=== PATIENT | male | born 1935 | race Caucasian/White ===

== ENCOUNTER 2022-11-15 13:54 | Outpatient (OUT) | payer MEDICARE, SELFPAY ==
--- NOTE | 2022-11-15 15:41 | CA_ITS ---
Patient Name Site Name ANNELISE GARCIA [facility] No Medical Record Number Age Sex Date Time [id number] [facility]:[id number] M 11/15/2022 14:02 At the Request Of ELIJAH PULIDO ECHOCARDIOGRAM REPORT PROCEDURE: CA ECHO DOPPLER COMPLETE INDICATIONS: Mitral and Aortic valve insufficiency COMPARISON: None. DESCRIPTION: COMPLETE ECHOCARDIOGRAM Real-time transthoracic echocardiography with 2D, M-mode, spectral and color flow Doppler performed. QUALITY: Technical quality was good. LEFT VENTRICLE: Normal chamber size. Normal left ventricular wall thickness. Global left ventricular systolic function is mildly decreased. LV EF: Visual estimation of left ventricular ejection fraction is 40-45%. DIASTOLIC: Diastolic function is indeterminate. ATRIAL SEPTUM: LEFT ATRIUM: Mild dilatation. RIGHT ATRIUM: Mild dilatation. RIGHT VENTRICLE: Moderate dilatation. Mildly decreased right ventricular systolic function. TRICUSPID VALVE: Normal mobility and thickness. No stenosis with trivial regurgitation. Unable to assess right-sided pressures due to lack of measurable tricuspid regurgitation. MITRAL VALVE: Normal mobility and thickness. No evidence of mitral valve stenosis. There is no mitral annular calcification. Mild mitral regurgitation. AORTIC VALVE: Normal trileaflet appearance. Mildly calcified aortic valve. Mildly diminished mobility. Doppler velocity suggest mild aortic valve stenosis. Mild to moderate aortic regurgitation. AORTIC ROOT: Normal diameter and appearance. PULMONIC VALVE: Normal thickness and mobility. No stenosis. No regurgitation. PERICARDIUM: No evidence of pericardial effusion. IVC: Collapses with inspirations. Normal size. PLEURA: CONCLUSION: 1. Left ventricular systolic function is mildly reduced. LVEF is 40 to 45%. 2. The right ventricle is moderately dilated with mildly reduced systolic function. 3. Mild mitral regurgitation. 4. Mild aortic valve stenosis with mild to moderate regurgitation. 5. Unable to assess right-sided pressures due to lack of measurable tricuspid regurgitation. 6. No pericardial effusion. Adult Echocardiography Procedure Report Left Ventricle LVEDD (3.7 - 5.6 cm): 4.75 cm LVESD (2.2 - 4.0 cm): 3.28 cm LVIVS thickness (0.6 - 1.2 cm): 0.91 cm LVPW thickness (0.5 - 1.0 cm): 1.03 cm e': 0.10 m/s E - e': 5.42 LVOT Max Gradient: 2.58 mm[Hg] LVOT Area (cm2): 0.80 m/s Peak Velocity (LVOT): 0.80 m/s Mean Velocity (LVOT): 0.53 m/s LVOT Diameter 1.78 cm Left Ventricular Ejection Fraction: 44.44 % Left Atrium LA Volume Index (2D A2C): 33.99 ml/m2 Left Atrium Systolic Dimension: 4.15 cm Mitral Valve MV E to A Ratio: 0.76 Mitral Valve A-Wave Peak Velocity: 0.70 m/s Mitral Valve E-Wave Peak Velocity: 0.54 m/s Right Ventricle RV Internal Diastolic Dimension: 4.62 cm Aorta AO Root Diam: 2.79 cm Ascending Ao Diam: 3.02 cm Aortic Valve AoV Area (Peak Pietro): 1.17 cm2, 1.23 cm2 AoV Area (VTI): 1.24 cm2, 1.29 cm2 Deceleration Barry: 1.98 m/s2, 2.07 m/s2 Pressure Half-Time: 539.10 ms, 556.55 ms Peak Velocity(Antegrade Flow): 1.62 m/s, 1.81 m/s Peak Gradient(Antegrade Flow): 10.55 mm[Hg], 13.04 mm[Hg] Mean Velocity(Antegrade Flow): 1.07 m/s, 1.24 m/s Mean Gradient(Antegrade Flow): 5.47 mm[Hg], 6.90 mm[Hg] Velocity Time Integral: 39.19 cm, 42.19 cm Tricuspid Valve Peak Velocity (Regurgitant Flow): 1.44 m/s, 1.47 m/s, 1.50 m/s Pulmonic Valve Mean Gradient: 4.69 mm[Hg] Mean Velocity: 1.02 m/s Peak Velocity: 1.53 m/s Peak Gradient: 9.38 mm[Hg] Right Atrium Right Atrium Systolic Pressure: 66.45 ml, 66.45 ml Dictated by: Addy Sierra M.D. on 11/15/2022 at 19:47 Approved by: Addy Sierra M.D. on 11/15/2022 at 19:53
== END 2022-11-15 13:55 | disposition home or self-care (01) ==
LOC: CARD 13:55
PROVIDERS: PCP Internal Medicine; Visit Provider Nurse Practitioner
DX: I08.0 Rheumatic disorders of both mitral and aortic valves (principal)
CPT/HCPCS: 93306

== ENCOUNTER 2022-12-26 08:31 | Outpatient (OUT) | payer MEDICARE, SELFPAY ==
--- NOTE | 2022-12-26 | PCN_ITS ---
CARDIAC STRESS TEST Requesting Physician:? Nathaniel Reyes NP Procedure Date:? 12/26/2022 INDICATION:? Ischemic cardiomyopathy. PERFORMING PROVIDER:? Irasema Harvey M.D. STRESS TEST TYPE:? Treadmill nuclear myocardial perfusion scan. Resting EKG:? Sinus bradycardia, right bundle branch block. Protocol:? Johnathan protocol. Resting heart rate:? 44 Peak heart rate:? 127 Peak maximal heart rate percentage:? 94% Blood pressure, resting:? 148/70 Blood pressure, peak:? 164/72 Exercise time:? 3 minutes 7 seconds Stage reached:? 1 Max METS:? 4.6 Reason for termination:? Fatigue, target heart rate achieved. Heart rate recovery:? Normal. Chronotropic response index:? Normal. Functional capacity:? Poor. Blood pressure response:? Normal. ST changes:? No definitive ST changes meeting direct criteria for ischemia noted. Roper treadmill score:? 3 Symptoms:? None. Arrhythmias:? Multifocal PVCs, PVCs in couplets. CONCLUSIONS: 1.? Baseline EKG is abnormal.? Patient has sinus bradycardia with right bundle branch block. 2.? No definitive EKG changes meeting the criteria for ischemia are noted with exercise. 3.? Functional capacity is poor.? Patient completed 3 minutes 7 seconds on treadmill.? Stage 1 reached.? METS 4.6. 4.? Patient had multifocal PVCs, PVCs in couplets at exercise and into recovery.? Clinical correlation recommended. 5.? Nuclear myocardial perfusion imaging will be performed and interpreted in a separate report.? Please refer to that report for additional information. [facility]
--- NOTE | 2022-12-26 07:45 | NM_ITS ---
Patient: ANNELISE GARCIA Exam Date: 12/26/2022 : 1935 Gender:M Ordering : ELIJAH PULIDO Admission #: [id number] Family : DR YARELIS LALA D.O. Order #: [id number] CLICK HERE TO VIEW EXAM RADIOLOGY REPORT PROCEDURE: NM SOSA PERF SPECT REST STR COMPARISON: None. INDICATIONS: ISCHEMIC CARDIOMYOPATHY TECHNIQUE: Exam Description: Stress/Rest one day protocol gated SPECT Rest Imagin.6 mCi Tc-99m Cardiolite IV on 12/26/2022 Stress Imaging 30.5 mCi Tc-99m Cardiolite IV on 12/26/2022 Exercise Protocol: Johnathan Heart Rate (bpm): Rest: 44 Max: 127 PMHR: 94 Blood Pressure: Rest: 148/70 Max: 164/72 Exercise Time: Minutes: 3 Seconds: 07 Stage Reached: Stage: 2 Mets 4.6 Symptoms: Rest and peak stress ECG findings were pending and the exercise portion of the study was pending per attending physician Dr. DELEON . For more details please see separate cardiac stress test report. FINDINGS: QUALITY OF STUDY: Excellent. PERFUSION DEFECT: None. LOCATION: N/A SIZE: N/A. SEVERITY: N/A. TYPE: N/A. WALL MOTION: Normal. LV SIZE: Normal. 118 mL. TID / TCD: None; 1.0 LVEF: Abnormal. Calculated EF 46%. SUMMARY: Myocardial perfusion imaging study has ABNORMAL findings. CONCLUSION: 1. No acute or reversible ischemia. 2. Diaphragm attenuation artifact versus decreased perfusion of the inferior wall; stable between stress and rest imaging. Diaphragm attenuation artifact is favored. 3. Mild hypokinesis of inferior wall. 4. Left ventricle volume is within normal limits, but is approaching upper limits of normal. 5. Low ejection fraction, 46%. Dictated by: Joaquim Sears M.D. on 12/27/2022 at 14:04 Approved by: Joaquim Sears M.D. on 12/27/2022 at 14:09
== END 2022-12-26 08:32 | disposition home or self-care (01) ==
LOC: NM 08:31
PROVIDERS: PCP Internal Medicine; Visit Provider Nurse Practitioner
DX: I25.5 Ischemic cardiomyopathy (principal)
CPT/HCPCS: 78452; 93017; A9500

== ENCOUNTER 2023-01-28 11:48 | Outpatient (OUT) | payer MEDICARE, SELFPAY ==
--- NOTE | 2023-01-28 | XR_ITS ---
[address] [address] Patient Name: ANNELISE GARCIA MRN: [id number] date: 1935 Sex: M Assigned Patient Location: LAB Current Patient Location: LAB Accession/Order Number: [id number] Exam Date: 01/28/2023 11:45 Report Date: 01/28/2023 13:38 At the request of: YARELIS LALA Procedure: XR knee RT 4V EXAM: XR knee RT 4V HISTORY: Pain In Right Knee M25.561 COMPARISON: None. TECHNIQUE: 4 views FINDINGS: No acute fracture or dislocation. Mild degenerative changes of the knee with meniscal calcification. Mild soft tissue swelling. XR/XR knee RT 4V IMPRESSION: Mild degenerative changes as above. Electronically authenticated by: PEPE STEWART Date: 01/28/2023 13:38
== END 2023-01-28 11:49 | disposition home or self-care (01) ==
LOC: LAB 11:48
PROVIDERS: PCP Internal Medicine; Visit Provider Internal Medicine
DX: I25.10 Atherosclerotic heart disease of native coronary artery without angina pectoris (principal); E78.01 Familial hypercholesterolemia; Z79.899 Other long term (current) drug therapy; M25.561 Pain in right knee
CPT/HCPCS: 73564

== ENCOUNTER 2023-01-29 08:52 | Outpatient (OUT) | payer MEDICARE, SELFPAY ==
[2023-01-29 09:34] LABS: Basophils Percent Auto 0.8 % (0.2-2.0); Eosinophils Absolute Auto 0.2 10^3/uL (0.0-0.7); Hematocrit 43.3 % (42.0-54.0); Hemoglobin 14.4 g/dL (14.0-18.0); Lymphocytes Absolute Auto 1.1 10^3/uL (1.2-3.8); Lymphocytes Percent Auto 21.9 % (20.5-60.0); Mean Corpuscular HGB Conc 33.3 g/dL (29.9-35.2); Mean Corpuscular Hemoglobin 34.3 pg (25.9-34.0); Mean Corpuscular Volume 103.1 fL (80.0-94.0); Mean Platelet Volume 9.3 fL (9.5-13.5); Monocytes Absolute Auto 0.7 10^3/uL (0.3-0.8); Monocytes Percent Auto 14.7 % (1.7-12.0); Neutrophils Absolute Auto 2.8 10^3/uL (1.4-6.5); Neutrophils Percent Auto 57.6 % (43.0-75.0); Platelet Count 162 10^3/uL (150-450); Red Cell Distribution Width 12.7 % (11.0-15.0); White Blood Count 4.8 10^3/uL (4.0-11.0)
[2023-01-29 11:01] LABS: Alanine Aminotransferase 21 U/L (16-63); Anion Gap 12.6; BUN Creatinine Ratio 16.7; Calcium 9.4 mg/dL (8.5-10.1); Carbon Dioxide 28.7 mmol/L (21.0-32.0); Chloride 104 mmol/L (98-107); Chol HDL Ratio 2.4; Cholesterol 131 mg/dL (<=200); Estimated GFR (African America >60 (>=60); Estimated GFR (Non-African Ame 57 (>=60); Glucose 91 mg/dL (74-106); HDL Cholesterol 54 mg/dL (40-60); Potassium 4.3 mmol/L (3.5-5.1); Sodium 141 mmol/L (136-145); Triglycerides 75 mg/dL (<=150)
== END 2023-01-29 08:53 | disposition home or self-care (01) ==
LOC: LAB 08:53
PROVIDERS: PCP Internal Medicine; Visit Provider Internal Medicine
DX: I25.10 Atherosclerotic heart disease of native coronary artery without angina pectoris (principal); E78.01 Familial hypercholesterolemia; Z79.899 Other long term (current) drug therapy
CPT/HCPCS: 36415; 80048; 80061; 84460; 85025

== ENCOUNTER 2023-05-25 08:27 | Outpatient (OUT) | payer MEDICARE, SELFPAY ==
--- NOTE | 2023-05-25 | CT_ITS ---
[address] [address] Patient Name: ANNELISE GARCIA MRN: [id number] date: 1935 Sex: M Assigned Patient Location: CT Current Patient Location: CT Accession/Order Number: [id number] Exam Date: 05/25/2023 08:50 Report Date: 05/25/2023 11:10 At the request of: YARELIS LALA Procedure: CT head/brain wo con CT head without contrast, 05/25/2023. HISTORY: Memory loss. Mild cognitive impairment. COMPARISON: CT head without contrast, 06/11/2022. TECHNIQUE: Noncontrast axial CT images were obtained through the head. Reconstructions were obtained in the sagittal and coronal planes. Dose reduction techniques were achieved by using automated exposure control and/or adjustment of mA and/or kV according to patient size and/or use of iterative reconstruction technique. FINDINGS: Paranasal sinuses are clear. Mastoid air cells clear. Skull base intact. No skull lesion. Prior cataract surgery. Extracranial soft tissue structures are unremarkable. Moderate generalized brain atrophy stable. 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 This is stable. Chronic microvascular ischemic changes in the cerebral white matter most prominent in the right parietal and occipital lobe region stable from the prior. No subdural fluid collections. No shift of midline. No mass effect. No acute hemorrhage. No masses. CT/CT head/brain wo con IMPRESSION: 1. Stable CT of the head. No acute findings. 2. Moderate generalized brain atrophy stable. No hydrocephalus. 3. Chronic microvascular ischemic changes stable. Electronically authenticated by: SHITAL BURTON Date: 05/25/2023 11:10
== END 2023-05-25 08:28 | disposition home or self-care (01) ==
LOC: CT 08:28
PROVIDERS: PCP Internal Medicine; Visit Provider Internal Medicine
DX: G31.84 Mild cognitive impairment of uncertain or unknown etiology (principal)
CPT/HCPCS: 70450

== ENCOUNTER 2023-05-28 09:14 | Outpatient (OUT) | payer MEDICARE, SELFPAY ==
--- OUTSIDE RECORDS SUMMARY | 2023-05-28 09:19 | XMS_ITS | CCD ---
Author Name Unknown Address [address] [place] [address] Organization [facility] Care Team Providers [facility] Shift Lead Name Role Phone MIGUEL GUEVARA Primary Care Physician KAILASH BARNES Consulting Unavailable GEOVANY RHODES Admitting Unavailable GEOVANY RHODES Attending Unavailable DAI, DR SANTOYO Primary Care Unavailable EDUARDO SINGLETON Consulting Unavailable JENARO PAGE Consulting Unavailable DAI, DR SANTOYO Attending Unavailable DAI, DR SANTOYO Admitting Unavailable DAI, DR SANTOYO Primary Care Unavailable DAI, DR SANTOYO Consulting Unavailable DAI, DR SANTOYO Consulting Unavailable DAI, DR SANTOYO Attending Unavailable BALL, DR SANTOYO Admitting Unavailable BALL, DR SANTOYO Primary Care Unavailable DAI, DR SANTOYO Primary Care Unavailable HAY ., DR ALVAREZ Admitting Unavailable HAY ., DR ALVAREZ Consulting Unavailable HAY ., DR ALVAREZ Attending Unavailable CALABRESE, ALYCIA Consulting Unavailable Conner IRENE Attending Unavailable PRINCESS, Conner Simpson Attending Unavailable Miguel Guevara Unavailable CAMACHO SINGER Attending Unavailable ELIJAH REYES Attending Unavailable ELIJAH REYES Attending Unavailable CAMACHO SINGER Referring Unavailable Allergies Allergy Classification Reported Allergen(s) Allergy Type Date of Onset Reaction(s) Facility (15 sources) Naproxen; Translations: [naproxen] Drug Allergy 4 Unknown (qualifier value) [facility] (1 source) Naproxen Drug Allergy 7 [facility] (6 sources) patient allergy list reviewed by nurse or physicia Propensity to adverse reactions 9 Comment:Done FaceTags Other Medications Current Medications Medication Drug Class(es) Dates Sig (Normalized) Sig (Original) apixaban 5 mg oral tablet (2 sources) Factor Xa Inhibitor Start: 05-12-2020 take 1 mg by mouth twice daily Eliquis 5 mg oral tablet mg tab(s), Oral, BID, Refills(s) 0 Start Date: 05/12/20 Status: Ordered aspirin 81 mg delayed release oral tablet (12 sources) Platelet Aggregation Inhibitor, Nonsteroidal Anti-inflammatory Drug take 1 tablet by mouth every twenty-four hours Aspirin 81 81 MG 1 tablet Orally Once a day Active take 1 tablet by mouth once nika y Aspirin 81 81 MG 1 tablet Orally Once a day Active atorvastatin 40 mg oral tablet (14 sources) HMG-CoA Reductase Inhibitor Start: 05-12-2020 take 1 mg by mouth once daily atorvastatin 40 mg Tab mg tab(s), Oral, Daily, Refills(s) 0 Start Date: 05/12/20 Status: Ordered Zyrtec (14 sources) Histamine-1 Receptor Antagonist Start: 05-13-2020 Zyrtec Daily, Refills(s) 0 Start Date: 05/13/20 Status: Ordered take 1 capsule by [facility] every twenty-four hours ZyrTEC Allergy 10 MG 1 capsule Orally Once a day Active furosemide 40 mg oral tablet (14 sources) Loop Diuretic Start: 05-12-2020 take 1 mg by mouth once daily furosemide 40 mg Tab mg tab(s), Oral, Daily, Refills(s) 0 Start Date: 05/12/20 Status: Ordered lisinopril 10 mg oral tablet (14 sources) Angiotensin Converting Enzyme Inhibitor Start: 06-09-2022 take 1 tablet by mouth every twenty-four hours Lisinopril 10 MG 1 tablet Orally Once a day Jun, Active Start: 05-12-2020 take 1 mg by mouth once daily lisinopril 5 mg Tab mg tab(s), Oral, Daily, Refills(s) 0 Start Date: 05/12/20 Status: Ordered Ernie Red (2 sources) Start: 05-31-2020 Ernie Red Ernie Red, Oral, Daily Start Date: 05/31/20 Status: Ordered 24 hr mirabegron 25 mg extended release oral tablet (1 source) beta3-Adrenergic Agonist Start: 08-17-2022 take 1 tablet by mouth once daily Myrbetriq 25 mg oral tablet, extended release 25 mg = 1 tab(s), Oral, Daily, # 30 tab(s), Refills(s) 11, [facility]: [id number], 170, cm, 08/17/22 8:49:00 EDT, Height/Length Dosing, 66, kg, 08/17/22 8:49:00 EDT, Weight Dosing Start Date: 08/17/22 Status: Ordered nitroglycerin 0.4 mg sublingual tablet (9 sources) Nitrate Vasodilator Start: 01-02-2023 Nitrostat 0.4 MG as directed Sublingual PRN chest pain Dec, Active Start: 05-13-2020 nitroglycerin Refills(s) 0 Start Date: 05/13/20 Status: Ordered omeprazole 40 mg delayed release oral capsule (13 sources) Proton Pump Inhibitor Start: 05-12-2020 take 1 mg by mouth once daily omeprazole 40 mg Cap-DR mg cap(s), Oral, Daily, Refills(s) 0 Start Date: 05/12/20 Status: Ordered omeprazole 40 mg Cap-DR (1 source) Start: 05-12-2020 take 1 mg by mouth once daily omeprazole 40 mg Cap-DR mg cap(s), Oral, Daily, Refills(s) 0 Start Date: 05/12/20 Status: Ordered Zicam Sinus Relief (2 sources) Start: 05-13-2020 Zicam Sinus Relief BID, Refill(s) 0 Start Date: 05/13/20 Status: Ordered tamsulosin hydrochloride 0.4 mg oral capsule (12 sources) alpha-Adrenergic Sissy take 1 capsule by mouth every twenty-four hours Tamsulosin HCl 0.4 MG 1 capsule Orally Once a day Active traMADol hydrochloride 50 mg oral tablet (14 sources) Opioid Agonist Start: 12-26-2022 take 1 tablet by mouth every eight hours as needed for pain traMADol HCl 50 MG 1 tablet Orally every 8 hours PRN severe pain Dec, Active Start: 05-12-2020 take 1 tablet by snow th every four hours as needed for pain tramadol 50 mg oral tablet 50 mg = 1 tab(s), Oral, q4hr, PRN for pain, # 60 tab(s), Refills(s) 0 Start Date: 05/12/20 Status: Ordered take 1 tablet by snow th every twenty-four hours traMADol HCl 50 MG 1 tablet as needed Orally Once a day Active Problems Active Problems Problem Classification Problem Date Documented Da te Episodic/Chronic Abdominal pain (3 sources) Lower abdominal pain, unspecified; Translations: [LOWER ABDOMINAL PAIN UNSPECIFIED] Onset: 3 Episodic Cardiac dysrhythmias (20 sources) Typical atrial flutter; Translations: [Typical atrial flutter] 05-12-2020 Chronic Chronic kidney disease (4 sources) Chronic kidney disease stage 3A ; Translations: [Stage 3a chronic kidney disease] Chronic Congestive heart failure; nonhypertensive (4 sources) Heart failure, unspecified; Translations: [Chronic systolic heart failure] Onset: 3 Chronic Coronary atherosclerosis and other heart disease (20 sources) Coronary arteriosclerosis; Translations: [Atherosclerotic heart disease of [place] coronary artery without angina pectoris] Onset: 2 05-12-2020 Chronic Disorders of lipid metabolism (20 sources) Familial hypercholesterolemia; Translations: [Pure hypercholesterolemia, unspecified] Onset: 0 05-12-2020 Chronic E Codes: Fall (1 source) Fall on same level from slipping, tripping and stumbling without subsequent striking against object, initial encounter; Translations: [FALL SAME LVL SLIP NO STRK OBJ INIT] Onset: 3 Episodic Esophageal disorders (20 sources) Gastro-esophageal reflux disease with esophagitis; Translations: [Gastro-esophageal reflux disease without esophagitis] Onset: 3 05-12-2020 Chronic Esophageal disorders (6 sources) Other esophagitis; Translations: [Esophagitis] Episodic Essential hypertension (20 sources) Essential hypertension; Translations: [Essential (primary) hypertension] 05-12-2020 Chronic Gastroduodenal ulcer (except hemorrhage) (12 sources) Duodenal ulcer without hemorrhage, without perforation AND without obstruction; Translations: [Duodenal ulcer, unspecified as acute or chronic, without hemorrhage or perforation and without obstruction] Chronic Gastroduodenal ulcer (except hemorrhage) (2 sources) H/O: duodenal ulcer 05-12-2020 Episodic Genitourinary symptoms and ill-defined conditions (3 sources) Urge incontinence of urine; Translations: [Urge incontinence] Onset: 3 05-13-2020 Chronic Genitourinary symptoms and ill-defined conditions (19 sources) Nocturia; Translations: [Nocturia] Onset: 2 Episodic Heart valve disorders (2 sources) Rheumatic disorders of both mitral and aortic valves; Translations: [Rheumatic disorders of both mitral and aortic valves] Onset: 3 Chronic Hyperplasia of prostate (20 sources) Benign prostatic hypertrophy with outflow obstruction; Translations: [Benign prostatic hyperplasia with lower urinary tract symptoms] Onset: 0 Chronic Hypertension with complications and secondary hypertension (1 source) Hypertensive heart disease with heart failure; Translations: [HTN HEART DISEASE W/HEART FAIL] Onset: 3 Chronic Inflammatory conditions of male genital organs (2 sources) 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 Chronic Malaise and fatigue (7 sources) Other malaise and fatigue; Translations: [Malaise and fatigue] Onset: 4 Episodic Noninfectious gastroenteritis (1 source) Noninfective gastroenteritis and colitis, unspecified; Translations: [NONINFECTIVE GE AND COLITIS UNS] Onset: 3 Episodic Osteoarthritis (20 sources) Osteoarthritis of hip; Translations: [Osteoarthritis of knee] 05-12-2020 Chronic Other aftercare (19 sources) Long-term current use of anticoagulant; Translations: [[facility] (current) use of anticoagulants] 05-12-2020 Episodic Other aftercare (1 source) [facility] (current) use of aspirin; Translations: [GROUP HOME CURRENT USE OF ASPIRIN] Onset: 3 Episodic Other aftercare (3 sources) Other mcfp (current) drug therapy; Translations: [OTH TITLE ATTORNEY CURRENT DRUG THERAPY] Onset: 3 Episodic Other aftercare (11 sources) H/O: high risk medication; Translations: [Other termite renewal inspector (current) drug therapy] Episodic Other aftercare (11 sources) High risk drug monitoring status; Translations: [supervisor intermediates (current) use of opiate analgesic] Episodic Other aftercare (2 sources) supervisor intermediates (current) use of opiate analgesic; Translations: [[facility] (current) use of opiate analgesic] Episodic Other aftercare (1 source) [facility] (current) use of anticoagulants; Translations: [supervisor intermediates (current) use of anticoagulants] Episodic Other aftercare (5 sources) Long-term current use of drug therapy; Translations: [Other mcfp (current) drug therapy] Episodic Other circulatory disease (17 sources) H/O: cardiovascular disease; Translations: [Personal history of other diseases of the circulatory system] Episodic Other circulatory disease (3 sources) Personal history of other diseases of the circulatory system; Translations: [H/O atrial flutter] Episodic Other connective tissue disease (16 sources) Enthesopathy of knee; Translations: [Other bursitis of knee, unspecified knee] Episodic Other connective tissue disease (16 sources) Disorder of soft tissue; Translations: [Other specified soft tissue disorders] Episodic Other connective tissue disease (2 sources) Other bursitis of knee, unspecified knee; Translations: [Other bursitis of knee, unspecified knee] Episodic Other connective tissue disease (2 sources) Other specified soft tissue disorders; Translations: [Other specified soft tissue disorders] Episodic Other diseases of bladder and urethra (4 sources) Male urethral stricture; Translations: [Unspecified urethral stricture, male, unspecified site] Onset: 2 Episodic Other diseases of kidney and ureters (1 source) Urinary tract obstruction; Translations: [Other obstructive and reflux uropathy] Onset: 2 Episodic Other diseases of veins and lymphatics (20 sources) Peripheral venous insufficiency; Translations: [Venous insufficiency (chronic) (peripheral)] 05-12-2020 Episodic Other diseases of veins and lymphatics (1 source) Venous insufficiency (chronic) (peripheral) Episodic Other disorders of stomach and duodenum (12 sources) Stenosis of duodenum; Translations: [Stenosis of duodenum] Chronic Other gastrointestinal disorders (12 sources) Feces contents abnormal; Translations: [Black stool] Episodic Other gastrointestinal disorders (12 sources) Heartburn; Translations: [HEARTBURN] Episodic Other gastrointestinal disorders (18 sources) Diarrhea; Translations: [Diarrhea, unspecified] Episodic Other gastrointestinal disorders (6 sources) H/O: gastrointestinal disease; Translations: [Personal history of other diseases of the digestive system] Episodic Other hematologic conditions (12 sources) Macrocytosis - no anemia; Translations: [Other specified diseases of blood and blood-forming organs] Chronic Other hematologic conditions (13 sources) Other specified diseases of blood and blood-forming organs; Translations: [Disease of blood AND/OR blood-forming organ] Onset: 9 Chronic Other hereditary and degenerative nervous system conditions (4 sources) Impaired cognition; Translations: [Mild cognitive impairment, so stated] Chronic Other hereditary and degenerative nervous system conditions (2 sources) Mild cognitive impairment, so stated Chronic Other injuries and conditions due to external causes (4 sources) Unspecified injury of head, initial encounter; Translations: [UNSPECIFIED INJURY HEAD INITIAL ENC] Onset: 3 Episodic Other injuries and conditions due to external causes (1 source) History of falling; Translations: [History of falling] Episodic Other injuries and conditions due to external causes (5 sources) History of fall; Translations: [History of falling] Episodic Other nervous system disorders (20 sources) Carpal tunnel syndrome; Translations: [Carpal tunnel syndrome, bilateral upper limbs] Chronic Other nervous system disorders (3 sources) Carpal tunnel syndrome, bilateral upper limbs; Translations: [Carpal tunnel syndrome, bilateral upper limbs] Chronic Other nervous system disorders (5 sources) Chronic pain; Translations: [Other chronic pain] Chronic Other non-traumatic joint disorders (1 source) Pain in right knee Episodic Other upper respiratory disease (6 sources) Seasonal allergic rhinitis; Translations: [Other seasonal allergic rhinitis] Chronic Screening and history of mental health and substance abuse codes (2 sources) Personal history of nicotine dependence; Translations: [Encounter for screening for depression] Onset: 3 Episodic Spondylosis; intervertebral disc disorders; other back problems (20 sources) Lumbar spondylosis; Translations: [Spondylosis without myelopathy or radiculopathy, lumbar region] 05-12-2020 Chronic Superficial injury; contusion (1 source) Abrasion of right eyelid and periocular area, initial encounter; Translations: [ABRASION RT EYELID PERIOCULAR INIT] Onset: 3 Episodic Unclassified (1 source) Special screening for malignant neoplasms, colon; Translations: [Special screening for malignant neoplasms, colon] Onset: 6 Unclassified (1 source) Long-term (current) use of other medications; Translations: [Long-term (current) use of other medications] Onset: 7 Unclassified (1 source) Hypertrophy (benign) of prostate without urinary obstruction and other lower urinary tract symptoms [LUTS]; Translations: [Hypertrophy (benign) of prostate without urinary obstruction and other lower urinary tract symptoms [LUTS]] Onset: 0 Unclassified (5 sources) Long-term current use of drug therapy; Translations: [Long-term (current) use of other medications] Onset: 7 Past or Other Problems Problem Classification Problem Date Documented Da te Episodic/Chronic Chronic kidney disease (1 source) Chronic kidney disease Esophageal disorders (15 sources) Esophageal disorders; Translations: [Gastroesophageal reflux disease with esophagitis without hemorrhage] Immunizations and screening for infectious disease (7 sources) Encounter for immunization; Translations: [Vaccination given] Onset: 05-10-2015 Episodic Other gastrointestinal disorders (4 sources) Diarrhea, unspecified; Translations: [DIARRHEA UNSPECIFIED] Onset: 02-16-2022 Episodic Results Test Name Value Interpretation Reference Range Facility Office Visiton 05-14-2023 Follow-up visit [id number] Annelise Olson 1935 M [facility] Provider Department Center 05/14/2023 CAMACHO CARTWRIGHT Family History Problem Relation Age of Onset Coronary artery disease Mother Coronary artery disease Father Family Status - Relation Status Age at Mother Father Level of Service:[id number] [place] OFFICE/OUTPATIENT ESTABLISHED LOW MDM 20 MIN Normal [facility] Office Visiton 12-19-2022 Follow-up visit [id number] Annelise Olson 1935 Date Provider Department Center 12/19/2022 ELIJAH COOPER Family History Problem Relation Age of Onset Coronary artery disease Mother Coronary artery disease Father Family Status - Relation Status Age at Mother Father Level of Service:[id number] [place] OFFICE/OUTPATIENT ESTABLISHED MOD MDM 30-39 MIN Reason for Visit and Comments: Follow-up [602924] Normal [facility] Office Visiton 10-31-2022 Follow-up visit [id number] Annelise Olson 1935 M [facility] Provider Department Center 10/31/2022 ELIJAH COOPER Family History Problem Relation Age of Onset Coronary artery disease Mother Coronary artery disease Father Family Status - Relation Status Age at Mother Father Level of Service:[id number] [place] OFFICE/OUTPATIENT ESTABLISHED MOD MDM 30-39 MIN Reason for Visit and Comments: Follow-up [056027] - Follow up no issues Normal [facility] Ambulatory Visit Summaryon 0 08-17-2022 Ambulatory Visit Summary ANNELISE OLSON :1935 Visit Date:08/17/2022 Ambulatory Visit Instructions Your Diagnosis BPH with urinary obstruction 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 Urge incontinence Tests Performed Urnls Dip Stick Auto w/o Microscopy POC [id number] Your Care Team Attending Physician - Conner IRENE MD Primary Care Physician - MIGUEL GUEVARA DO This Is Your Medications List mirabegron (Myrbetriq 25 mg oral tablet, extended release) Contact prescribing physician if questions or concerns Non-Formulary Medication (Ernie Red) apixaban (Eliquis 5 mg oral tablet) atorvastatin (atorvastatin 40 mg Tab) cetirizine (Zyrtec) furosemide (furosemide 40 mg Tab) lisinopril (lisinopril 5 mg Tab) nitroglycerin omeprazole (omeprazole 40 mg Cap-DR) oxymetazoline nasal (Zicam Sinus Relief) tramadol (tramadol 50 mg oral tablet) Procedures Performed TURP - Transurethral resection of prostate (09/01/2020), Cystoscopy (05/31/2020), Colonoscopy (2011), EGD - Esophagogastroduodenoscopy (2011), Prosthetic total arthroplasty of right hip (2011), Femoral herniorrhaphy - bilateral (1997), CABG - Coronary artery bypass graft (1994). Discharge Vitals Heart Rate (Peripheral) 80 Respiratory Rate 16 Blood Pressure 128/76 Height 170 cm Height 67 in Weight 66 kg Weight 145.2 lb BMI 22.84 What to do next Scheduled Follow-Up Appointments Saturday 9:45 AM EDT With: Conner RIENE MD Where: [facility] Patient Educationon 08-18-19 23 Patient Education Urology Benign Prostatic Hyperplasia Benign prostatic hyperplasia (BPH) is an enlarged prostate gland that is caused by the normal aging process and not by cancer. The prostate is a walnut-sized gland that is involved in the production of semen. It is located in front of the rectum and below the bladder. The bladder stores urine and the urethra is the tube that carries the urine out of the body. The prostate may get bigger as a man gets older. An enlarged prostate can press on the urethra. This can make it harder to pass urine. The build-up of urine in the bladder can cause infection. Back pressure and infection may progress to bladder damage and kidney (renal) failure. What are the causes? This condition is part of a normal aging process. However, not all men develop problems from this condition. If the prostate enlarges away from the urethra, urine flow will not be blocked. If it enlarges toward the urethra and compresses it, there will be problems passing urine. What increases the risk? This condition is more likely to develop in men over the age of 50 years. What are the signs or symptoms? Symptoms of this condition include: ? Getting up often during the night to urinate. ? Needing to urinate frequently during the day. ? Difficulty starting urine flow. ? Decrease in size and strength of your urine stream. ? Leaking (dribbling) after urinating. ? Inability to pass urine. This needs immediate treatment. ? Inability to completely empty your bladder. ? Pain when you pass urine. This is more common if there is also an infection. ? Urinary tract infection (UTI). How is this diagnosed? This condition is diagnosed based on your medical history, a physical exam, and your symptoms. Tests will also be done, such as: ? A post-void bladder scan. This measures any amount of urine that may remain in your bladder after you finish urinating. ? A digital rectal exam. In a rectal exam, your health care provider checks your prostate by putting a lubricated, gloved finger into your rectum to feel the back of your prostate gland. This exam detects the size of your gland and any abnormal lumps or growths. ? An exam of your urine (urinalysis). ? A prostate specific antigen (PSA) screening. This is a blood test used to screen for prostate cancer. ? An ultrasound. This test uses sound waves to electronically produce a picture of your prostate gland. Your health care provider may refer you to a specialist in kidney and prostate diseases (urologist). How is this treated? Once symptoms begin, your health care provider will monitor your condition (active surveillance or watchful waiting). Treatment for this condition will depend on the severity of your condition. Treatment may include: ? Observation and yearly exams. This may be the only treatment needed if your condition and symptoms are mild. ? Medicines to relieve your symptoms, including: ? Medicines to shrink the prostate. ? Medicines to relax the muscle of the prostate. ? Surgery in severe cases. Surgery may include: ? Prostatectomy. In this procedure, the prostate tissue is removed completely through an open incision or with a laparoscope or robotics. ? Transurethral resection of the prostate (TURP). In this procedure, a tool is inserted through the opening at the tip of the penis (urethra). It is used to cut away tissue of the inner core of the prostate. The pieces are removed through the same opening of the penis. This removes the blockage. ? Transurethral incision (TUIP). In this procedure, small cuts are made in the prostate. This lessens the prostate's pressure on the urethra. ? Transurethral microwave thermotherapy (TUMT). This procedure uses microwaves to create heat. The heat destroys and removes a small amount of prostate tissue. ? Transurethral needle ablation (TUNA). This procedure uses radio frequencies to destroy and remove a small amount of prostate tissue. ? Interstitial laser coagulation (ILC). This procedure uses a laser to destroy and remove a small amount of prostate tissue. ? Transurethral electrovaporization (TUVP). This procedure uses electrodes to destroy and remove a small amount of prostate tissue. ? Prostatic urethral lift. This procedure inserts an implant to push the lobes of the prostate away from the urethra. Follow these instructions at home: ? Take [id number] and prescription medicines only as told by your health care provider. ? Monitor your symptoms for any changes. Contact your health care provider with any changes. ? Avoid drinking large amounts of liquid before going to bed or out in public. ? Avoid or reduce how much caffeine or alcohol you drink. ? Give yourself time when you urinate. ? Keep all follow-up visits as told by your health care provider. This is important. Contact a health care provider if: ? You have unexplained back pain. ? Your symptoms do not get better with treatment. ? You d (more content not included)... Normal [facility] Office/Clinic Noteon 08-17-2022 Urology Office/Clinic Note Chief Complaint 1yr HPI Staff 1yr to BPH, Nocturia & Urethral Stricture. *Finasteride 5mg QD therapy was DC'd at last encounter. Last UD done 08/2020 Still having good stream. Occasional urge/stress incontinence. Does have leaking if he can't get to the bathroom soon enough, and when bending over. Wears a pad, changes daily. Was getting up 3x last encounter, now only getting up 1-2x/night. Has noticed darker urine at times. Denies all other urinary complaints at this time. History of Present Illness Tests Reviewed: Reviewed UA. I have reviewed and verified the staff HPI to be accurate for this encounter. I have reviewed the previous health record information and history for this patient from Dr. Irene There have been no associated fever, chills, flank pain, or blood in the urine. Denies any urinary infections since last encounter. Review of Systems PHQ Score Initial Depression Screen Score: 0 ROS - Provider Constitutional: denies weight loss, denies hot flashes. Eyes: denies eye problems. Gastrointestinal: denies nausea, denies vomiting. Cardiovascular: denies chest pain or angina. Integumentary: no dryness Musculoskeletal: denies musculoskeletal symptoms. ENMT: denies otolaryngeal symptoms. Respiratory: no shortness of breath. Heme/Lymph: denies easy bleeding tendency, denies easy bruising tendency. Psychiatric: no confusion, no anxiety. Genitourinary: denies dysuria, denies hematuria, denies discharge, denies urinary frequency, denies urinary hesitancy, denies nocturia, denies incontinence, denies genital sores, denies decreased libido, and denies erectile dysfunction. Physical Exam Vitals & Measurements HR: 80(Peripheral) RR: 16 BP: 128/76 HT: 67 in HT: 170 cm WT: 66 kg WT: 145.2 lb BMI: 22.84 General Appearance: alert, no distress, well nourished, well developed male Flank Pain: none. Bladder: nonpalpable. Assessment/Plan 1. BPH with urinary obstruction (N40.1: Benign prostatic hyperplasia with lower urinary tract symptoms) Good stream, feels empty. UA done today is negative for blood and infection.. Patient is S/p Cysto/UD and TURP done 09/01/2020. Currently not taking any prostate medication. 2. 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 (N35.919: Unspecified urethral stricture, male, unspecified site) S/p UD done 08/2020. no sign of recurrence at this point. 3. Urge incontinence (N39.41: Urge incontinence) Patient c/o of leaking with running water and pumping gas. Discussed with patient possibly starting a bladder medication to help control his urge. He would be willing to try a medication. Will send script for Myrbetriq 25 mg po qd therapy. He will call office if insurance does not cover this medication. I have reviewed the previous health history and record for this patient with Dr. Irene. Follow-up With When Contact Information PRINCESS GARCIA, KAUSHIK Pandya In 1 year [facility] [address], [place] [id number]- [id number] Additional Instructions: 1 year fu Patient Education Benign Prostatic Hyperplasia IYadi, personally scribed for Dr. Irene on 08/17/2022 09:21:45. . Documentation recorded by the scribekathrin, accurately reflects the services(s) I performed and decisions made by me. Authenticated by Dr. Irene on 08/17/2022 09:23:24. Problem List/Past Medical History Ongoing Anticoagulant long-term use ASHD (arteriosclerotic heart disease) BPH with urinary obstruction Chronic prostatitis Chronic venous insufficiency Essential hypertension Frequency of urination Gastroesophageal reflux disease with esophagitis Hematuria Hx of duodenal ulcer Hyperlipidemia type II Lumbar spondylosis Osteoarthritis of hip Osteoarthritis, knee Poor urinary stream Typical atrial flutter 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 Urge incontinence Historical No qualifying data Procedure/Surgical History TURP - Transurethral resection of prostate (09/01/2020), Cystoscopy (05/31/2020), Colonoscopy (2011), EGD - Esophagogastroduodenoscopy (2011), Prosthetic total arthroplasty of right hip (2011), Femoral herniorrhaphy - bilateral (1997), CABG - Coronary artery bypass graft (1994). Medications atorvastatin 40 mg Tab, Oral, Daily Eliquis 5 mg oral tablet, Oral, BID furosemide 40 mg Tab, Oral, Daily lisinopril 5 mg Tab, Oral, Daily Ernie Red, Oral, Daily nitroglycerin omeprazole 40 mg Cap-DR, Oral, Daily tramadol 50 mg oral tablet, 50 mg= 1 tab(s), Oral, q4hr, PRN Zicam Sinus Relief, BID Zyrtec, Daily Allergies naproxen (Unknown) Social History Alcohol - Denies Alcohol Use, 05/12/2020 Tobacco - Denies Tobacco Use, 05/12/2020 Never (less than 100 in lifetime) Tobacco Use:. Never Smokeless Tobacco Use:., 08/17/2022 Family History Arthritis: Mother. Diabetes mellitus type 1: Mother. Heart disease: Mother and Father. Immunizations Vaccine Date Status influenza vir (more content not included)... Normal [place] Comment on above: Result Comment: Elec tronically Signed By: Conner IRENE MD\.br\Date and Time Signed: 08/17/22 09:23 EDT\.br\Electronically Co-Signed By: Yadi Quijano\.br\Date and Time Co-Signed: 08/17/22 09:22 EDT CBC AUTO DIFFon 08-14-2022 BASO # 0.0 103/ul Normal 0.0-0.1 [facility] Comment on above: Performed By: #### A LT, LIPID, BMP #### [facility] [address] [address] [address] Kaleb Desir Basophils/100 WBC (Bld) 0.5 % Normal 0.2-2.0 [facility] Comment on above: Performed By: #### A LT, LIPID, BMP #### [facility] [address] [address] [address] Kaleb Desir EO # 0.1 103/ul Normal 0.0-0.7 [facility] Comment on above: Performed By: #### A LT, LIPID, BMP #### [facility] [address] [address] [address] Kaleb Desir Eosinophils/100 WBC (Bld) 1.2 % Normal 0.9-7.0 [facility] Comment on above: Performed By: #### A LT, LIPID, BMP #### [facility] [address] [address] [address] Kaleb Desir Erythrocyte distribution width (RBC) [Ratio] 12.9 % Normal 11.0-15.0 [facility] Comment on above: Performed By: #### A LT, LIPID, BMP #### [facility] [address] [address] [address] Kaleb Desir Hematocrit (Bld) [Volume fraction] 38.6 % Critically low 42.0-54.0 [facility] Comment on above: Performed By: #### A LT, LIPID, BMP #### [facility] [address] [place] [address] Dr. Kaleb Desir Hemoglobin (Bld) [Mass/Vol] 13.1 g/dL Critically low 14.0-18.0 [facility] Comment on above: Performed By: #### A LT, LIPID, BMP #### [facility] [address] [place] [address] Dr. Kaleb Desir IG # 0.03 10e3/ul Normal 0.00-0.03 [facility] Comment on above: Performed By: #### A LT, LIPID, BMP #### [facility] [address] [place] [address] Dr. Kaleb Desir IG % 0.3 % Normal 0.0-0.5 [facility] Comment on above: Performed By: #### A LT, LIPID, BMP #### [facility] [address] [place] [address] Dr. Kaleb Desir LYMPH # 0.9 103/ul Critically low 1.2-3.8 [facility] Comment on above: Performed By: #### A LT, LIPID, BMP #### [facility] [address] [place] [address] Dr. Kaleb Desir Lymphocytes/100 WBC (Bld) 10.3 % Critically low 20.5-60.0 [facility] Comment on above: Performed By: #### A LT, LIPID, BMP #### [facility] [address] [place] [address] Dr. Kaleb Desir MANUAL DIFF REQ NO Normal [facility] Comment on above: Performed By: #### A LT, LIPID, BMP #### [facility] [address] [place] [address] Dr. Kaleb Desir MCH (RBC) [Entitic mass] 34.0 pg Normal 25.9-34.0 [facility] Comment on above: Performed By: #### A LT, LIPID, BMP #### [facility] [address] [place] [address] Dr. Kaleb Desir MCHC (RBC) [Mass/Vol] 33.9 g/dL Normal 29.9-35.2 [facility] Comment on above: Performed By: #### A LT, LIPID, BMP #### [facility] [address] [place] [address] Dr. Kaleb Desir MCV (RBC) [Entitic vol] 100.3 fL Critically high 80.0-94.0 [facility] Comment on above: Performed By: #### A LT, LIPID, BMP #### [facility] [address] [place] [address] Dr. Kaleb Desir MONO # 0.8 103/ul Normal 0.3-0.8 [facility] Comment on above: Performed By: #### A LT, LIPID, BMP #### [facility] [address] [place] [address] Dr. Kaleb Desir Monocytes/100 WBC (Bld) 9.2 % Normal 1.7-12.0 [facility] Comment on above: Performed By: #### A LT, LIPID, BMP #### [facility] [address] [place] [address] Dr. Kaleb Desir NEUT # 7.0 103/ul Critically high 1.4-6.5 [facility] Comment on above: Performed By: #### A LT, LIPID, BMP #### [facility] [address] [place] [address] Dr. Kaleb Desir Neutrophils/100 WBC (Bld) 78.5 % Critically high 43.0-75.0 [facility] Comment on above: Performed By: #### A LT, LIPID, BMP #### [facility] [address] [place] [address] Dr. Kaleb Desir Platelet mean volume (Bld) [Entitic vol] 9.0 fL Critically low 9.5-13.5 [facility] Comment on above: Performed By: #### A LT, LIPID, BMP #### [facility] [address] [place] [address] Dr. Kaleb Desir PLT 164 103/ul Normal 150-450 [facility] Comment on above: Performed By: #### A LT, LIPID, BMP #### [facility] [address] [place], [place] [address] Dr. Kaleb Desir RBC 3.85 106/ul Critically low 4.70-6.10 [facility] Comment on above: Performed By: #### A LT, LIPID, BMP #### [facility] [address] [place], [place] [address] Dr. Kaleb Desir WBC 8.9 103/ul Normal 4.0-11.0 [facility] Comment on above: Performed By: #### A LT, LIPID, BMP #### [facility] [address] [place], [place] [address] ABD/PELVIS WO CONon 08-14 CT ABD/PELVIS WO CON EXAMINATION: CT ABD/PELVIS WO CON, 08/14/2022 1:53 AM EDT HISTORY: Lower abdominal pain COMPARISON: None. TECHNIQUE: CT scan of the abdomen and pelvis was performed without IV contrast. CT dose reduction technique was used, including Automated Exposure Control. FINDINGS: The visualized portions of the lung bases are clear. Partially imaged are postsurgical changes of the chest with median sternotomy wires in place. There is coronary artery disease. Abdomen: Please note that the sensitivity for detection of focal lesions or vascular disease is markedly reduced without intravenous contrast. The liver and spleen are unremarkable. There is no intra or extrahepatic biliary duct dilatation. The gallbladder is unremarkable. There is colonic diverticulosis without evidence of diverticulitis. There is bowel wall thickening of the cecum, ascending colon, and possibly the transverse colon with inflammatory changes about the cecum and ascending colon. The appendix is normal. The pancreas, adrenal glands, and kidneys are unremarkable. There is no mesenteric or retroperitoneal lymphadenopathy. Pelvis: The bladder demonstrates wall thickening. The rectum is unremarkable. There is no iliac or inguinal lymphadenopathy. There is mild prostatomegaly. There are postsurgical changes of bilateral inguinal hernia repairs. There is moderate to advanced atherosclerotic disease. Bone windows show no aggressive osseous lesions. There are postsurgical changes of a right total hip arthroplasty. The hardware causes streak artifact which renders evaluation of adjacent structures suboptimal. IMPRESSION: 1. Bowel wall thickening of the cecum, ascending colon, and possibly the transverse colon with inflammatory changes about the cecum and ascending colon. These findings are concerning for an infectious or inflammatory colitis with an ischemic etiology not excluded. 2. Colonic diverticulosis without evidence of diverticulitis. 3. Normal appendix. 4. Mild prostatomegaly. 5. Urinary bladder wall thickening which could be secondary to chronic outlet obstruction from the prostatomegaly; however, please correlate with urinalysis for infection. Electronically authenticated by: Colt CALABRESE Date: 2022-08-14 03:24 Normal [facility] ER URINE PROFILEon 3 Bilirubin Ql (U) Negative Normal NEGATIVE [facility] Comment on above: Performed By: #### A LT, LIPID, BMP #### [facility] [address] [place] [address] Dr. Kaleb Desir Clarity (U) CLEAR Normal CLEAR [facility] Comment on above: Performed By: #### A LT, LIPID, BMP #### [facility] [address] [place] [address] Dr. Kaleb Desir Color (U) YELLOW Normal YELLOW [facility] Comment on above: Performed By: #### A LT, LIPID, BMP #### [facility] [address] [place] [address] Dr. Kaleb Desir ERUAHD A micrscopic examina tion will be performed if indicated. Normal [facility] Comment on above: Performed By: #### A LT, LIPID, BMP #### [facility] [address] [place] [address] Dr. Kaleb Desir Glucose Ql (U) Negative Normal NEGATIVE [facility] Comment on above: Performed By: #### A LT, LIPID, BMP #### [facility] [address] [place] [address] Dr. Kaleb Desir Hemoglobin Ql (U) TRACE-INTACT Abnormal NEGATIVE [facility] Comment on above: Performed By: #### A LT, LIPID, BMP #### [facility] [address] [place] [address] Dr. Kaleb Desir Ketones Ql (U) TRACE Abnormal NEGATIVE [facility] Comment on above: Performed By: #### A LT, LIPID, BMP #### [facility] [address] [place] [address] Dr. Kaleb Desir LEUKOCYTES Negative Normal NEGATIVE [facility] Comment on above: Performed By: #### A LT, LIPID, BMP #### [facility] [address] [place] [address] Dr. Kaleb Desir Nitrite Ql (U) Negative Normal NEGATIVE [facility] Comment on above: Performed By: #### A LT, LIPID, BMP #### [facility] [address] [address] [address] Kaleb Desir pH (U) 5.5 [pH] Normal 5-9 [facility] Comment on above: Performed By: #### A LT, LIPID, BMP #### [facility] [address] [place] [address] Dr. Kaleb Desir SPEC GRAVITY >=1.030 Abnormal 1.005-<=1.0 25 [facility] Comment on above: Performed By: #### A LT, LIPID, BMP #### [facility] [address] [place] [address] Dr. Kaleb Desir UA PROTEIN Negative Normal NEGATIVE/ TRACE [facility] Comment on above: Performed By: #### A LT, LIPID, BMP #### [facility] [address] [place] [address] Dr. Kaleb Desir UR MICRO IND NOT INDICATED Normal [facility] Comment on above: Performed By: #### A LT, LIPID, BMP #### [facility] [address] [place] [address] Dr. Kaleb Desir Urobilinogen Qn (U) 0.2 {Silver'U}/dL Normal 0.2 - 1.0 [facility] Comment on above: Performed By: #### A LT, LIPID, BMP #### [facility] [address] [place] [address] Dr. Kaleb Desir LIPASEon 08-14-2022 Lipase [Catalytic activity/Vol] 91.0 U/L Normal 73.0-393.0 [facility] Comment on above: Performed By: #### C MP, LIPA #### [facility] [address] [place] [address] Dr. Kaleb Desir PROF 14(COMP METB)on 023 Albumin [Mass/Vol] 3.2 g/dL Critically low 3.4-5.0 [facility] Comment on above: Performed By: #### A LT, LIPID, BMP #### [facility] [address] [address] [address] Kaleb Desir Albumin/Globulin [Mass ratio] 1.0 {ratio} Normal [facility] Comment on above: Performed By: #### A LT, LIPID, BMP #### [facility] [address] [address] [address] Kaleb Desir ALP [Catalytic activity/Vol] 78 U/L Normal 46-116 [facility] Comment on above: Performed By: #### A LT, LIPID, BMP #### [facility] [address] [address] [address] Kaleb Desir ALT [Catalytic activity/Vol] 20 U/L Normal 16-63 [facility] Comment on above: Performed By: #### A LT, LIPID, BMP #### [facility] [address] [address] [address] Kaleb Desir Anion gap [Moles/Vol] 12.6 mmol/L Normal [facility] Comment on above: Performed By: #### A LT, LIPID, BMP #### [facility] [address] [address] [address] Kaleb Desir AST [Catalytic activity/Vol] 21 U/L Normal 15-37 [facility] Comment on above: Performed By: #### A LT, LIPID, BMP #### [facility] [address] [address] [address] Kaleb Desir Bilirubin [Mass/Vol] 0.8 mg/dL Normal 0.2-1.0 [facility] Comment on above: Performed By: #### A LT, LIPID, BMP #### [facility] [address] [address] [address] Kaleb Desir Calcium [Mass/Vol] 8.5 mg/dL Normal 8.5-10.1 [facility] Comment on above: Performed By: #### A LT, LIPID, BMP #### [facility] [address] [place] [address] Dr. Kaleb Desir Chloride [Moles/Vol] 105 mmol/L Normal 98-107 [facility] Comment on above: Performed By: #### A LT, LIPID, BMP #### [facility] [address] [address] [address] Kaleb Desir CO2 [Moles/Vol] 24.4 mmol/L Normal 21.0-32.0 [facility] Comment on above: Performed By: #### A LT, LIPID, BMP #### [facility] [address] [address] [address] Kaleb Desir Creatinine [Mass/Vol] 1.13 mg/dL Normal 0.70-1.30 [facility] Comment on above: Performed By: #### A LT, LIPID, BMP #### [facility] [address] [place] [address] Dr. Kaleb Desir EGFR-AF MONEGASQUE >60 Normal >=60 [facility] Comment on above: Performed By: #### A LT, LIPID, BMP #### [facility] [address] [place] [address] Dr. Kaleb Desir EGFR-NON AF MONEGASQUE >60 Normal >=60 [facility] Comment on above: Performed By: #### A LT, LIPID, BMP #### [facility] [address] [place] [address] Dr. Kaleb Desir Globulin (S) [Mass/Vol] 3.1 g/dL Normal [facility] Comment on above: Performed By: #### A LT, LIPID, BMP #### [facility] [address] [place] [address] Dr. Kaleb Desir Glucose [Mass/Vol] 129 mg/dL Critically high 74-106 [facility] Comment on above: Performed By: #### A LT, LIPID, BMP #### [facility] [address] [place] [address] Dr. Kaleb Desir Potassium [Moles/Vol] 4.0 mmol/L Normal 3.5-5.1 [facility] Comment on above: Performed By: #### A LT, LIPID, BMP #### [facility] [address] [address] [address] Kaleb Desir Protein [Mass/Vol] 6.3 g/dL Critically low 6.4-8.2 [facility] Comment on above: Performed By: #### A LT, LIPID, BMP #### [facility] [address] [address] [address] Kaleb Desir Sodium [Moles/Vol] 138 mmol/L Normal 136-145 [facility] Comment on above: Performed By: #### A LT, LIPID, BMP #### [facility] [address] [address] [address] Kaleb Desir Urea nitrogen [Mass/Vol] 15.0 mg/dL Normal 7.0-18.0 [facility] Comment on above: Performed By: #### A LT, LIPID, BMP #### [facility] [address] [place] [address] Dr. Kaleb Desir Urea nitrogen/Creatini ne [Mass ratio] 13.3 mg/mg Normal [facility] Comment on above: Performed By: #### A LT, LIPID, BMP #### [facility] [address] [place] [address] CSPINE WO CONon 3 CT CSPINE WO CON EXAMINATION: CT CSPI NE WO CON HISTORY: Patient fell. TECHNIQUE: Axial CT scans through the cervical spine were obtained without contrast administration. Sagittal and coronal reconstruction images were obtained. A trauma Dose reduction techniques were achieved by using: automated exposure control and/or adjustment of mA and /or kV according to patient size and/or use of iterative reconstruction technique. COMPARISON: None. FINDINGS: No acute fracture or posttraumatic malalignment is shown. At C2-C3, moderate left facet arthropathy with fusion of the facet joint. At C3-C4, mild left and severe right facet hypertrophy with moderate stenosis of the right neural foramen. A small broad-based posterior disc protrusion. Decreased disc height and associated discovertebral complexes without central spinal stenosis from C4 down to C7. Moderate to severe stenosis of the right C4-C5 neural foramen and moderate stenosis of the right C5-C6 neural foramen secondary to decreased disc height and uncovertebral hypertrophy. Slight degenerative spondylolisthesis of C7 on T1. The prevertebral soft tissue space appears normal. Visualized intracranial contents appear normal. Visualized neck shows no adenopathy. Visualized lung apices are clear. IMPRESSION: No acute fracture or posttraumatic malalignment. At C2-C3, moderate left facet arthropathy with fusion of the facet joint. At C3-C4, mild left and severe right facet hypertrophy with moderate stenosis of the right neural foramen. A small broad-based posterior disc protrusion. Discovertebral degenerative changes from C4 to C7 without central spinal stenosis. Moderate to severe stenosis of the right C4-C5 neural foramen and moderate stenosis of the right C5-C6 neural foramen secondary to decreased disc height and uncovertebral hypertrophy. Electronically authenticated by: KAILASH BARNES Date: 2022-06-11 21:51 Normal [facility] CT HEAD WO CONon 06-11-2022 CT HEAD WO CON NONCONTRAST CT SCAN OF THE HEAD CT HEAD WO CON HISTORY:: HEADACHE 87-year-old male with the patient is less than the patio hitting his head on blood thinners. No loss of consciousness. Patient with right supraorbital bruising and swelling. TECHNIQUE: Multiple axial images are taken from the level the vertex down to the base of the skull without the use of IV contrast. Images were then reconstructed in the sagittal and coronal planes. This exam was performed according to our departmental dose-optimization program which includes use of Automated Exposure Control, adjustment of the mA and/or kV according to patient size and/or use of iterative reconstruction technique. COMPARISON: 03/06/2017 CT head FINDINGS: Brain Parenchyma: There is global, diffuse atrophy with periventricular decreased white matter attenuation. No intracranial mass. No intracranial hemorrhage. Posterior fossa: Normal. Midline shift: None Extra-axial fluid collection: None Ventricles: Normal. Mastoid air cells: Normal. Sinuses: Normal. Cranium: No depressed skull fracture. Soft tissues: Normal. Orbits: Orbits demonstrate postoperative changes from prior cataract resection with prosthetic lens implant. IMPRESSION: 1. Chronic small vessel ischemic change. 2. Otherwise, no CT evidence for acute pathology. 3. If symptoms continue, MRI may help better delineate. Electronically authenticated by: EDUARDO SINGLETON Date: 2022-06-11 21:57 Normal [facility] STOOL CULTUREon 02-20-2022 Campylobacter Culture Final report Normal [facility] Comment on above: Performed By: #### C XSTOOL #### [facility] [address] [place] [address] Dr. Kaleb Desir E coli Shiga Toxin EIA Negative Normal Negative [facility] Comment on above: Performed By: #### C XSTOOL #### [facility] [address] [place] [address] Dr. Kaleb Desir Result 1 Comment Normal [facility] Comment on above: Result Comment: No S almonella or Shigella recovered. Performed By: #### C XSTOOL #### [facility] [address] [place] [address] Dr. Kaleb Desir Result Comment: No C ampylobacter species isolated. Salmonella/Shigel la Screen Final report Normal [facility] Comment on above: Performed By: #### C XSTOOL #### [facility] [address] [place] [address] Dr. Kaleb Desir C. DIFF PCRon 02-16-2022 C. DIFFICILE PCR Negative Normal NEGATIVE [facility] Comment on above: Performed By: #### C DIFPOC #### [facility] [address] [place] [address] Dr. Kaleb Desir CBC AUTO DIFFon 02-16-2022 BASO # 0.0 103/ul Normal 0.0-0.1 [facility] Comment on above: Performed By: #### C BC #### [facility] [address] [place] [address] Dr. Kaleb Desir Basophils/100 WBC (Bld) 0.6 % Normal 0.2-2.0 [facility] Comment on above: Performed By: #### C BC #### [facility] [address] [place] [address] Dr. Kaleb Desir EO # 0.3 103/ul Normal 0.0-0.7 [facility] Comment on above: Performed By: #### C BC #### [facility] [address] [place] [address] Dr. Kaleb Desir Eosinophils/100 WBC (Bld) 4.0 % Normal 0.9-7.0 [facility] Comment on above: Performed By: #### C BC #### [facility] [address] [place] [address] Dr. Kaleb Desir Erythrocyte distribution width (RBC) [Ratio] 12.4 % Normal 11.0-15.0 [facility] Comment on above: Performed By: #### C BC #### [facility] [address] [place] [address] Dr. Kaleb Desir Hematocrit (Bld) [Volume fraction] 40.5 % Critically low 42.0-54.0 [facility] Comment on above: Performed By: #### C BC #### [facility] [address] [place] [address] Dr. Kaleb Desir Hemoglobin (Bld) [Mass/Vol] 13.7 g/dL Critically low 14.0-18.0 [facility] Comment on above: Performed By: #### C BC #### [facility] [address] [place] [address] Dr. Kaleb Desir IG # 0.01 10e3/ul Normal 0.00-0.03 [facility] Comment on above: Performed By: #### C BC #### [facility] [address] [place] [address] Dr. Kaleb Desir IG % 0.1 % Normal 0.0-0.5 [facility] Comment on above: Performed By: #### C BC #### [facility] [address] [place] [address] Dr. Kaleb Desir LYMPH # 1.7 103/ul Normal 1.2-3.8 [facility] Comment on above: Performed By: #### C BC #### [facility] [address] [place] [address] Dr. Kaleb Desir Lymphocytes/100 WBC (Bld) 25.5 % Normal 20.5-60.0 [facility] Comment on above: Performed By: #### C BC #### [facility] [address] [place] [address] Dr. Kaleb Desir MANUAL DIFF REQ NO Normal [facility] Comment on above: Performed By: #### C BC #### [facility] [address] [address] [address] Kaleb Desir MCH (RBC) [Entitic mass] 34.4 pg Critically high 25.9-34.0 [facility] Comment on above: Performed By: #### C BC #### [facility] [address] [place] [address] Dr. Kaleb Desir MCHC (RBC) [Mass/Vol] 33.8 g/dL Normal 29.9-35.2 [facility] Comment on above: Performed By: #### C BC #### [facility] [address] [place] [address] Dr. Kaleb Desir MCV (RBC) [Entitic vol] 101.8 fL Critically high 80.0-94.0 [facility] Comment on above: Performed By: #### C BC #### [facility] [address] [place] [address] Dr. Kaleb Desir MONO # 0.9 103/ul Critically high 0.3-0.8 [facility] Comment on above: Performed By: #### C BC #### [facility] [address] [place] [address] Dr. Kaleb Desir Monocytes/100 WBC (Bld) 12.4 % Critically high 1.7-12.0 [facility] Comment on above: Performed By: #### C BC #### [facility] [address] [place] [address] Dr. Kaleb Desir NEUT # 3.9 103/ul Normal 1.4-6.5 [facility] Comment on above: Performed By: #### C BC #### [facility] [address] [place] [address] Dr. Kaleb Desir Neutrophils/100 WBC (Bld) 57.4 % Normal 43.0-75.0 [facility] Comment on above: Performed By: #### C BC #### [facility] [address] [place] [address] Dr. Kaleb Desir Platelet mean volume (Bld) [Entitic vol] 9.0 fL Critically low 9.5-13.5 [facility] Comment on above: Performed By: #### C BC #### [facility] [address] [address] [address] Kaleb Desir PLT 181 103/ul Normal 150-450 [facility] Comment on above: Performed By: #### C BC #### [facility] [address] [place] [address] Dr. Kaleb Desir RBC 3.98 106/ul Critically low 4.70-6.10 [facility] Comment on above: Performed By: #### C BC #### [facility] [address] [place] [address] Dr. Kaleb Desir WBC 6.8 103/ul Normal 4.0-11.0 [facility] Comment on above: Performed By: #### C BC #### [facility] [address] [place] [address] Dr. Kaleb Desir PROF CHEM 8 (BAS METB)on Anion gap [Moles/Vol] 11.0 mmol/L Normal [facility] Comment on above: Performed By: #### A LT, LIPID, BMP #### [facility] [address] [place] [address] Dr. Kaleb Desir Calcium [Mass/Vol] 8.9 mg/dL Normal 8.5-10.1 [facility] Comment on above: Performed By: #### A LT, LIPID, BMP #### [facility] [address] [place] [address] Dr. Kaleb Desir Chloride [Moles/Vol] 105 mmol/L Normal 98-107 [facility] Comment on above: Performed By: #### A LT, LIPID, BMP #### [facility] [address] [place] [address] Dr. Kaleb Desir CO2 [Moles/Vol] 26.6 mmol/L Normal 21.0-32.0 [facility] Comment on above: Performed By: #### A LT, LIPID, BMP #### [facility] [address] [place] [address] Dr. Kaleb Desir Creatinine [Mass/Vol] 1.02 mg/dL Normal 0.70-1.30 [facility] Comment on above: Performed By: #### A LT, LIPID, BMP #### [facility] [address] [address] [address] Kaleb Desir EGFR-AF MONEGASQUE >60 Normal >=60 [facility] Comment on above: Performed By: #### A LT, LIPID, BMP #### [facility] [address] [address] [address] Kaleb Desir EGFR-NON AF MONEGASQUE >60 Normal >=60 [facility] Comment on above: Performed By: #### A LT, LIPID, BMP #### [facility] [address] [address] [address] Kaleb Desir Glucose [Mass/Vol] 102 mg/dL Normal 74-106 [facility] Comment on above: Performed By: #### A LT, LIPID, BMP #### [facility] [address] [place] [address] Dr. Kaleb Desir Potassium [Moles/Vol] 3.6 mmol/L Normal 3.5-5.1 [facility] Comment on above: Performed By: #### A LT, LIPID, BMP #### [facility] [address] [place] [address] Dr. Kaleb Desir Sodium [Moles/Vol] 139 mmol/L Normal 136-145 [facility] Comment on above: Performed By: #### A LT, LIPID, BMP #### [facility] [address] [place] [address] Dr. Kaleb Desir Urea nitrogen [Mass/Vol] 14.0 mg/dL Normal 7.0-18.0 [facility] Comment on above: Performed By: #### A LT, LIPID, BMP #### [facility] [address] [place] [address] Dr. Kaleb Desir Urea nitrogen/Creatini ne [Mass ratio] 13.7 mg/mg Normal [facility] Comment on above: Performed By: #### A LT, LIPID, BMP #### [facility] [address] [place] [address] Dr. Kaleb Desir CBC AUTO DIFFon 01-19-2022 BASO # 0.1 103/ul Normal 0.0-0.1 [facility] Comment on above: Performed By: #### A LT, LIPID, BMP #### [facility] [address] [place] [address] Dr. Kaleb Desir Basophils/100 WBC (Bld) 0.8 % Normal 0.2-2.0 [facility] Comment on above: Performed By: #### A LT, LIPID, BMP #### [facility] [address] [place] [address] Dr. Kaleb Desir EO # 0.4 103/ul Normal 0.0-0.7 [facility] Comment on above: Performed By: #### A LT, LIPID, BMP #### [facility] [address] [place] [address] Dr. Kaleb Desir Eosinophils/100 WBC (Bld) 5.8 % Normal 0.9-7.0 [facility] Comment on above: Performed By: #### A LT, LIPID, BMP #### [facility] [address] [place] [address] Dr. Kaleb Desir Erythrocyte distribution width (RBC) [Ratio] 12.2 % Normal 11.0-15.0 [facility] Comment on above: Performed By: #### A LT, LIPID, BMP #### [facility] [address] [place] [address] Dr. Kaleb Desir Hematocrit (Bld) [Volume fraction] 41.8 % Critically low 42.0-54.0 [facility] Comment on above: Performed By: #### A LT, LIPID, BMP #### [facility] [address] [place] [address] Dr. Kaleb Desir Hemoglobin (Bld) [Mass/Vol] 14.0 g/dL Normal 14.0-18.0 [facility] Comment on above: Performed By: #### A LT, LIPID, BMP #### [facility] [address] [place] [address] Dr. Kaleb Desir IG # 0.01 10e3/ul Normal 0.00-0.03 [facility] Comment on above: Performed By: #### A LT, LIPID, BMP #### [facility] [address] [address] [address] Kaleb Desir IG % 0.2 % Normal 0.0-0.5 [facility] Comment on above: Performed By: #### A LT, LIPID, BMP #### [facility] [address] [place] [address] Dr. Kaleb Desir LYMPH # 1.9 103/ul Normal 1.2-3.8 [facility] Comment on above: Performed By: #### A LT, LIPID, BMP #### [facility] [address] [place] [address] Dr. Kaleb Desir Lymphocytes/100 WBC (Bld) 31.7 % Normal 20.5-60.0 [facility] Comment on above: Performed By: #### A LT, LIPID, BMP #### [facility] [address] [place] [address] Dr. Kaleb Desir MANUAL DIFF REQ NO Normal [facility] Comment on above: Performed By: #### A LT, LIPID, BMP #### [facility] [address] [place] [address] Dr. Kaleb Desir MCH (RBC) [Entitic mass] 34.1 pg Critically high 25.9-34.0 [facility] Comment on above: Performed By: #### A LT, LIPID, BMP #### [facility] [address] [place] [address] Dr. Kaleb Desir MCHC (RBC) [Mass/Vol] 33.5 g/dL Normal 29.9-35.2 [facility] Comment on above: Performed By: #### A LT, LIPID, BMP #### [facility] [address] [place] [address] Dr. Kaleb Desir MCV (RBC) [Entitic vol] 101.7 fL Critically high 80.0-94.0 [facility] Comment on above: Performed By: #### A LT, LIPID, BMP #### [facility] [address] [place] [address] Dr. Kaleb Desir MONO # 0.8 103/ul Normal 0.3-0.8 [facility] Comment on above: Performed By: #### A LT, LIPID, BMP #### [facility] [address] [address] [address] Kaleb Desir Monocytes/100 WBC (Bld) 13.8 % Critically high 1.7-12.0 [facility] Comment on above: Performed By: #### A LT, LIPID, BMP #### [facility] [address] [place] [address] Dr. Kaleb Desir NEUT # 2.9 103/ul Normal 1.4-6.5 [facility] Comment on above: Performed By: #### A LT, LIPID, BMP #### [facility] [address] [place] [address] Dr. Kaleb Desir Neutrophils/100 WBC (Bld) 47.7 % Normal 43.0-75.0 [facility] Comment on above: Performed By: #### A LT, LIPID, BMP #### [facility] [address] [place] [address] Dr. Kaleb Desir Platelet mean volume (Bld) [Entitic vol] 8.9 fL Critically low 9.5-13.5 [facility] Comment on above: Performed By: #### A LT, LIPID, BMP #### [facility] [address] [place] [address] Dr. Kaleb Desir PLT 174 103/ul Normal 150-450 [facility] Comment on above: Performed By: #### A LT, LIPID, BMP #### [facility] [address] [place] [address] Dr. Kaleb Desir RBC 4.11 106/ul Critically low 4.70-6.10 [facility] Comment on above: Performed By: #### A LT, LIPID, BMP #### [facility] [address] [place] [address] Dr. Kaleb Desir WBC 6.0 103/ul Normal 4.0-11.0 [facility] Comment on above: Performed By: #### A LT, LIPID, BMP #### [facility] [address] [place] [address] Dr. Kaleb Desir LIPID PROFILEon 09-16-2022 CHOL-HDL RATIO NORM SEE BELOW Normal [facility] Comment on above: Result Comment: 3.3 - 4.4 LOW RISK 4.4 - 7.1 AVERAGE RISK 7.1 - 11.0 MODERATE RISK >11.0 HIGH RISK Performed By: #### A LT, LIPID, BMP #### [facility] [address] [address] [address] Kaleb Desir Cholesterol [Mass/Vol] 137 mg/dL Normal <=200 [facility] Comment on above: Performed By: #### A LT, LIPID, BMP #### [facility] [address] [address] [address] Kaleb Desir Cholesterol in HDL [Mass/Vol] 58 mg/dL Normal 40-60 [facility] Comment on above: Performed By: #### A LT, LIPID, BMP #### [facility] [address] [address] [address] Kaleb Desir Cholesterol in LDL [Mass/Vol] 68.6 mg/dL Normal [facility] Comment on above: Performed By: #### A LT, LIPID, BMP #### [facility] [address] [address] [address] Kaleb Desir Cholesterol.total /Cholesterol in HDL [Mass ratio] 2.4 {ratio} Normal [facility] Comment on above: Performed By: #### A LT, LIPID, BMP #### [facility] [address] [place] [address] Dr. Kaleb Desir HDL NORMAL > or = 60 mg/dl - LO W CARDIOVASCULAR RISK <40 mg/dl - HIGH CARDIOVASCULAR RISK Normal [facility] Comment on above: Performed By: #### A LT, LIPID, BMP #### [facility] [address] [address] [address] Kaleb Desir LDL CALC NORMAL SEE BELOW Normal [facility] Comment on above: Result Comment: <100 mg/dl OPTIMAL 100 - 129 mg/dl NEAR OR ABOVE OPTIMAL 130 - 159 mg/dl BORDERLINE HIGH 160 - 189 mg/dl HIGH >190 mg/dl VERY HIGH Performed By: #### A LT, LIPID, BMP #### [facility] [address] [address] [address] Kaleb Desir Triglyceride [Mass/Vol] 52 mg/dL Normal <=150 [facility] Comment on above: Performed By: #### A LT, LIPID, BMP #### [facility] [address] [place] [address] Dr. Kaleb Desir VLDL CALC 10.4 mg/dL Normal [facility] Comment on above: Performed By: #### A LT, LIPID, BMP #### [facility] [address] [place] [address] Dr. Kaleb Desir PROF CHEM 8 (BAS METB)on Anion gap [Moles/Vol] 13.1 mmol/L Normal [facility] Comment on above: Performed By: #### A LT, LIPID, BMP #### [facility] [address] [place] [address] Dr. Kaleb Desir Calcium [Mass/Vol] 8.9 mg/dL Normal 8.5-10.1 [facility] Comment on above: Performed By: #### A LT, LIPID, BMP #### [facility] [address] [place] [address] Dr. Kaleb Desir Chloride [Moles/Vol] 105 mmol/L Normal 98-107 [facility] Comment on above: Performed By: #### A LT, LIPID, BMP #### [facility] [address] [place] [address] Dr. Kaleb Desir CO2 [Moles/Vol] 25.0 mmol/L Normal 21.0-32.0 [facility] Comment on above: Performed By: #### A LT, LIPID, BMP #### [facility] [address] [place] [address] Dr. Kaleb Desir Creatinine [Mass/Vol] 1.17 mg/dL Normal 0.70-1.30 [facility] Comment on above: Performed By: #### A LT, LIPID, BMP #### [facility] [address] [place] [address] Dr. Kaleb Desir EGFR-AF MONEGASQUE >60 Normal >=60 [facility] Comment on above: Performed By: #### A LT, LIPID, BMP #### [facility] [address] [address] [address] Kaleb Desir EGFR-NON AF MONEGASQUE 59 mL/min/1.73m2 Critically low >=60 [facility] Comment on above: Performed By: #### A LT, LIPID, BMP #### [facility] [address] [address] [address] Kaleb Desir Glucose [Mass/Vol] 103 mg/dL Normal 74-106 [facility] Comment on above: Performed By: #### A LT, LIPID, BMP #### [facility] [address] [place] [address] Dr. Kaleb Desir Potassium [Moles/Vol] 4.1 mmol/L Normal 3.5-5.1 [facility] Comment on above: Performed By: #### A LT, LIPID, BMP #### [facility] [address] [place] [address] Dr. Kaleb Desir Sodium [Moles/Vol] 139 mmol/L Normal 136-145 [facility] Comment on above: Performed By: #### A LT, LIPID, BMP #### [facility] [address] [place] [address] Dr. Kaleb Desir Urea nitrogen [Mass/Vol] 18.0 mg/dL Normal 7.0-18.0 [facility] Comment on above: Performed By: #### A LT, LIPID, BMP #### [facility] [address] [place] [address] Dr. Kaleb Desir Urea nitrogen/Creatini ne [Mass ratio] 15.4 mg/mg Normal [facility] Comment on above: Performed By: #### A LT, LIPID, BMP #### [facility] [address] [place] [address] Dr. Kaleb Desir SGPTon 01-19-2022 ALT [Catalytic activity/Vol] 21 U/L Normal 16-63 [facility] Comment on above: Performed By: #### A LT, LIPID, BMP #### [facility] [address] [place] [address] Dr. Kaleb Desir Cardiovascular Lab Reporton 06-13-2020 Cardiovascular Lab Report [facility] Patient Name: Annelise Olson MR #: [id number] [facility] Physician: Camacho Singer MD Service Date: 06/13/2020 Department of Birthdate: 1935 Medicine Room #: CC Division of Cardiology Adult Cardiovascular Services [address] [place] [id number] Cardiovascular Laboratory Report ATRIAL FLUTTER ABLATION AND LOOP IMPLANT PROCEDURE NOTE DATE OF PROCEDURE: 06/13/2020 PERFORMING PHYSICIAN: Dr. Camacho Singer INDICATIONS FOR PROCEDURE: 1. History of symptomatic atrial flutter. CONSENT: Patient LOCATION: EP Lab PROCEDURAL SEDATION: Versed and Fentanyl. Moderate sedation was administered by the sedation nurse under my supervision and noted in the CVL log. Intraprocedural face to face sedation time: 115min. Monitoring: Cardiac telemetry, Blood pressure, continuous pulse oxymetry. FLUROSCOPY: 0sec/0mGray PREPARATION: Preoperative antibiotics was administered. PROCEDURES PERFORMED: 1. Ultrasound guided vascular access for venous sheaths as documented below in procedure note. 2. Comprehensive EP study and intracardiac catheter ablation for typical atrial flutter. This includes right atrial recording and pacing, His bundle recording and right ventricular recording and pacing. 3. Intracardiac EP 3D mapping. 4. Coronary sinus recording and pacing to induce arrhythmia. 5. ICE imaging. 6. LOOP Implant PROCEDURE NOTE: The risks, benefits and alternatives of the procedure were discussed with the patient and family who agreed to proceed. Please refer to my consult note for details of the discussion and of indications. Patient was brought to the EP lab in the post absorptive state. A procedural pause was performed verifying the patient, the procedure. The right and left groins were prepped and draped in the usual sterile fashion. Preoperative antibiotics was given. Ultrasound was used to image the right and left femoral veins and it was noted to be patent and this was used for vessel entry as noted below. After infiltration with 1% lidocaine, 3 venous sheaths were placed in the right side. 3500U Heparin bolus was given and bolus given subsequently to target ACT above 250. Details of catheters placed as follows. RFV: 8Fx3: ThermoCool ST/SF Bi-Directional over Vizigo sheath, ICE Catheter, CS Catheter (EZ Steer). Once catheters were in position, we decided to proceed with EP study. Patient was noted to be in SR. ICE imaging ruled out NICOLE and LA thrombus. Baseline intervals were noted as follows. AH 125ms, HV64ms. I decided to perform ablation using an irrigated catheter. Using ICE, the His and IVC junctions were marked with 3D CARTO mapping software. Vizigo sheath was exchanged for a short 8F sheath. Ablation was performed on the CTI line starting at the tricuspid valve aspect. There was a significant pouch noted near the TV aspect. 30W was utilized and I extended the ablation from the TV to the IVC aspect following which bidirectional block was not observed. The pouch offered significant challenge and so ablation was performed lateral to it and with this bidirectional block was noted. Pacing from the proximal CS as well as lateral to ablation line (162ms/154ms) confirmed this. Differential pacing also confirmed CTI block. EP study was then performed. Baseline right ventricular programmed stimulation showed VA conduction. VA block was noted at 600/360ms and VERP was noted at 600/310ms. Atrial pacing was performed from CS poles. AV block was noted at 600ms pacing. Wenkebach CL was 760ms. AVNERP was 800/610ms and AERP noted at 800/340ms.Isuprel was started at 2mcg/min and increased to 5mcg/min. AV conducntion improved on this with AV wenkebach CL at 370ms. AH 95ms and HV 60ms. 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 EP study was repeated and no tachycardia could be induced. Burst pacing down to 300ms did not induce any AF. Repeat EP study could no longer demonstrate any tachycardia. EP study and ablation were then stopped at this time. ICE imaging confirmed no pericardial effusion. Sheaths were pulled and hemostasis was confirmed with manual compression. I decided to then proceed with LOOP implant for AF surveillance. Sterile prep and drape was placed over the left precordium and anesthesia with 1% lidocaine was followed by a small incision was made in the 3rd intercostal space near the sternum on the left using the [employer] tool. The loop recorder was then injected subcutaneously. Interrogation of the device noted good sensing parameters. Technical details of the device as noted below. The skin was then closed with 3-0 absorbable monofilament suture and glue applied to hold the edges together. Tegaderm was applied to cover the wound. The patient appeared to tolerate the procedure well and was returned to his room in stable condition. No complicati (more content not included)... Normal [facility] Vital Signs Date Time Vital Sign Value Performing Clinician Facility 05-09-2023 11:00-0500 Body height 172.72 cm Miguel Ball Other [facility] Other 05-09-2023 11:00-0500 Body mass index (BMI) [Ratio] 21.98 kg/m2 Miguel Ball Other [facility] Other 05-09-2023 11:00-0500 Body weight 65.59 kg Miguel Ball Other [facility] Other 05-09-2023 11:00-0500 Diastolic blood pressure 66 mm[Hg] Miguel Ball Other [facility] Other 05-09-2023 11:00-0500 Respiratory rate 12 /min Miguel Ball Other [facility] Other 05-09-2023 11:00-0500 Systolic blood pressure 118 mm[Hg] Miguel Ball Other [facility] Other 10-26-2022 10:30-0400 Body height 172.72 cm Miguel Ball Other [facility] Other 10-26-2022 10:30-0400 Body mass index (BMI) [Ratio] 21.89 kg/m2 Miguel Ball Other [facility] Other 10-26-2022 10:30-0400 Body weight 65.32 kg Miguel Ball Other [facility] Other 10-26-2022 10:30-0400 Diastolic blood pressure 60 mm[Hg] Miguel Ball Other [facility] Other 10-26-2022 10:30-0400 Respiratory rate 12 /min Miguel Ball Other [facility] Other 10-26-2022 10:30-0400 Systolic blood pressure 104 mm[Hg] Miguel Ball Other [facility] Other 08-17-2022 08:47-0400 Blood Pressure Location [facility] 08-17-2022 08:47-0400 Diastolic blood pressure 76 mm[Hg] Con[facility] IR[facility] 08-17-2022 08:47-0400 Heart rate 80 /min Conner IR[facility] 08-17-2022 08:47-0400 Respiratory rate 16 /min Conner IR[facility] 08-17-2022 08:47-0400 Systolic blood pressure 128 mm[Hg] [facility] IR[facility] 08-14-2021 09:20-0400 Blood Pressure Location [facility] 08-14-2021 09:20-0400 Diastolic blood pressure 76 mm[Hg] Conner IRENE [facility] 08-14-2021 09:20-0400 Heart rate 61 /min Conner IRENE [facility] 08-14-2021 09:20-0400 Systolic blood pressure 160 mm[Hg] Conner IRENE [facility] Jorge L Encounters Encounter Date Encounter Type Care Provider Facility Start: 08-19-2023 ambulatory Conner IRENE Facili ty:[facility] Start: 05-27-2023 End: 05-27-2023 ambulatory Miguel Guevara Other [facility] Other Start: 05-27-2023 Telephone encounter Miguel Ball [facility] Start: 05-15-2023 End: 05-15-2023 ambulatory Miguel Ball Other [facility] Other Start: 05-15-2023 Telephone encounter Miguel Ball [facility] Start: 05-14-2023 End: 05-14-2023 ambulatory [facility] Start: 05-13-2023 End: 05-13-2023 ambulatory Miguel Ball Other [facility] Other Start: 05-13-2023 Telephone encounter Miguel Ball [facility] Start: 05-09-2023 End: 05-09-2023 ambulatory Miguel Ball Other [facility] Other Start: 05-09-2023 Office outpatient vi sit 25 minutes Miguel Ball [facility] Start: 01-29-2023 End: 01-29-2023 ambulatory Miguel Ball Other [facility] Other Start: 01-29-2023 Telephone encounter Miguel Ball [facility] Start: 01-21-2023 End: 01-21-2023 ambulatory Miguel Ball Other [facility] Other Start: 01-21-2023 Telephone encounter Miguel Ball [facility] Start: 12-31-2022 End: 12-31-2022 ambulatory Miguel Ball Other [facility] Other Start: 12-31-2022 Telephone encounter Miguel Guevara FP [facility] Start: 12-29-2022 End: 12-29-2022 ambulatory Miguel Guevara Other [facility] Other Start: 12-29-2022 Telephone encounter Miguel Guevara FP [facility] Start: 12-26-2022 End: 12-26-2022 ambulatory Miguel Guevara Other [facility] Other Start: 12-26-2022 Telephone encounter Miguel Guevara FP [facility] Start: 12-19-2022 End: 12-19-2022 ambulatory [facility] Start: 10-31-2022 End: 10-31-2022 ambulatory [facility] Start: 10-26-2022 End: 10-26-2022 ambulatory Miguel Guevara Other [facility] Other Start: 10-26-2022 Office outpatient vi sit 25 minutes Miguel Guevara [facility] Start: 08-17-2022 End: 08-18-2022 ambulatory Conner IRENE Facility:[facility] Start: 08-17-2022 End: 08-17-2022 Patient encounter procedure Conner IRENE [facility] Start: 08-14-2022 End: 08-14-[address] MIGUEL GUEVARA Facility:[facility] Start: 06-11-2022 End: 06-12-2022 ambulatory KAILASH BARNES Facility:[facility] Start: 05-31-2022 ambulatory [facility] Start: 02-16-2022 End: 02-17-[address] MIGUEL GUEVARA Facility:[facility] Start: 01-19-2022 End: 01-20-[address] MIGUEL GUEVARA Facility:[facility] Start: 01-16-2022 Adult health examination Miguel Guevara Other [facility] Other Start: 01-16-2022 Encounter for genera l adult medical examination without abnormal findings Miguel Guevara Other [facility] Other Start: 08-14-2021 End: 08-14-2021 Patient encounter procedure Conner IRENE [facility] Procedures Date Procedure Procedure Detail Performing Clinician Start: 09-01-2020 Transurethral prostatectomy Conner DEL CID ROSEMARIE Start: 05-31-2020 Cystoscopy Conner IRENE Start: 05-11-2015 Screening for malignant neoplasm of prostate Miguel Guevara Other Start: 05-10-2015 Screening for malignant neoplasm of colon Miguel Guevara Other Start: 05-06-2011 Colonoscopy Conner IRENE Start: 05-06-2011 Esophagogastroduodenoscopy Conner Bar Start: 05-06-2011 Total replacement of right hip joint Conner IRENE Start: 05-06-1997 Femoral herniorrhaphy - bilateral Thomas IRENE Start: 05-06-1994 Coronary artery bypass graft Conner WINTERS Depression screening Temo Guevara Other Immunizations Immunization Date Immunization Notes Care Provider Adrienne graham 01-28-2023 influenza, high dose seasonal, preservative-free Miguel Guevara Other [facility] Other 02-10-2022 COVID-19 Vaccine Pfi zer - Documentation Purposes Only Miguel Guevara Other [facility] Other 01-05-2022 influenza virus vaccine, split virus (incl. purified surface antigen) Miguel Guevara Other [facility] Other 02-15-2021 influenza virus vaccine, unspecified formulation Conner IRENE [facility] 01-17-2021 influenza virus vaccine, split virus (incl. purified surface antigen) Miguel Guevara Other [facility] Other 06-15-2020 SARS-CoV-2 (COVID-19 ) Ad26 vaccine, recombinant Conner IRENE [facility] 05-12-2020 SARS-CoV-2 (COVID-19 ) Ad26 vaccine, recombinant Conner IRENE [facility] 01-02-2020 influenza virus vaccine, split virus (incl. purified surface antigen) Miguel Guevara Other [facility] Other 02-12-2018 influenza virus vaccine, split virus (incl. purified surface antigen) Miguel Guevara Other [facility] Other 04-03-2017 pneumococcal conjuga te vaccine, 13 valent Miguel Guevara Other [facility] Other 03-22-2017 influenza virus vaccine, split virus (incl. purified surface antigen) Miguel Guevara Other [facility] Other 02-08-2016 diphtheria, tetanus toxoids and acellular pertussis vaccine, unspecified formulation Miguel Guevara Other [facility] Other 01-03-2016 influenza virus vaccine, split virus (incl. purified surface antigen) Miguel Guevara Other [facility] Other 05-10-2015 pneumococcal conjuga te vaccine, 13 valent Miguel Guevara Other [facility] Other 01-13-2014 tetanus and diphther ia toxoids, adsorbed, preservative free, for adult use (5 Lf of tetanus toxoid and 2 Lf of diphtheria toxoid) Miguel Guevara Other [facility] Other 03-11-2013 tetanus and diphther ia toxoids, adsorbed, preservative free, for adult use (5 Lf of tetanus toxoid and 2 Lf of diphtheria toxoid) Miguel Guevara Other [facility] Other 01-26-2013 tetanus and diphther ia toxoids, adsorbed, preservative free, for adult use (5 Lf of tetanus toxoid and 2 Lf of diphtheria toxoid) Miguel Guevara Other [facility] Other 01-21-2013 tetanus and diphther ia toxoids, adsorbed, preservative free, for adult use (5 Lf of tetanus toxoid and 2 Lf of diphtheria toxoid) Miguel Guevara Other [facility] Other 04-12-2010 pneumococcal polysaccharide vaccine, 23 valent Miguel Guevara Other [facility] Other Payers Date Payer Category Payer Unknown [id number] 1958 Medicare [id number] 1958 Unknown [id number] 1935 Unknown [id number] [id number] [id number] 1936 Unknown [id number] 2.16.84 [id number] 1936 Unknown [id number] 2.16.84 [id number] 1936 Unknown [id number] 2.16.84 [id number] 1936 Unknown [id number] 2.16.8 [id number] 1936 Unknown [id number] [id number] Social History Date Type Detail Facility Start: 08-14-2021 End: 08-17-2022 Tobacco smoking status Never smoked tobacco (finding) [facility] Tobacco smoking status Never [facility] Sex Assigned At Male [facility] Functional Status Date Assessment Result Facility 08-17-2022 Functional Status Yes [facility] Clinical Notes 08-14-2021 to 05-15-2023 Note Date & Type Note Facility 05-15-2023 Evaluation note Encounter Date Diagnosis Assessment Notes May, Chronic HFrEF (heart failure with reduced ejection fraction) (ICD-10 - I50.22) Echocardiogra m: 12/2022 LVEF 45%, RV dilated, mild MR, [facility] Other 01-09-2024 NoteUT Cardiology Consult Note Reason for visit: s/p flutter ablation, [employer] loop monitoring for AF 05/14/23 Patient here for 5 mo follow up stress test. He was started on Farxiga by Elijah Reyes at last visit in Dec 2022. He had routine labs in Jan 2023. states Farxiga was expensive for them so they'd like to know if there's an alternative. Denies chest pain, SOB, palpitations, and lightheadedness/syncope. Device check that was performed by me with the [employer] rep today revealed multiple episodes of A-fib. but when they were personally reviewed and all appeared to be sinus rhythm with PACs or SA node exit block. he is currently not on anticoagulation. 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 singer HPI: 05/01/22 Pt doing well. No issues to report. Multiple LOOP checks have called episodes of A. fib but when I scrutinized him closely they appear to be more like sinus with PACs of sinus with PVCs. Most of these tracings have got significant artifact which makes it clear interpretation difficult. This was noted even before.in my prior visitI did personally check on 05/01/22, EKG 09/05/2021 shows sinus bradycardia 08/22/2020 shows sinus rhythm EP Study: Pt underwent flutter ablation on 06/13/20 IMPRESSION: 1. Status post successful ablation of typical atrial flutter. 2. No evidence of dual node physiology 3. Successful LOOP Implant procedure. Prior HPI: 84 yo man with history of CAD s/pCABG in 1994 with MEZA to LAD, SVG to diagonal and SVG to RCA. Cardiac cath in 2005 showed that MEZA to LAD and SVG to RCA were occluded. The SVG to the diagonal was patent and he had mildly reduced LV function with EF 45% which improved to 50%. Dr. La saw him for atrial flutter and performed cardioversion on 04/07/2019. He also stopped his atenolol due to his bradycardia. He also discussed with him the possibility of needing ablation if this recurs in the future as well as the possibility of requiring a pacemaker if he continues to be bradycardic with symptoms after stopping the beta sissy. urrently he is doing well. He has no chest pain and no shortness of breath. No significant lower extremity edema. He feels good. He has no palpitations and no dizziness. and would like to come off anticoagulation. 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 He has history of bradycardia with blocked PACs. EKG 02/24/2019 at 8:40 AM shows atrial flutter with a bolus to 1 AV block 07/15/2018 and 730 reveals atrial flutter with first 1 block 07/15/2018 9 AM shows sinus rhythm with underlying right bundle branch block at 42 bpm Cardioversion was performed on 04/07/[address] La who converted the flutter to sinus rhythm with evidence of significant sinus bradycardia Echocardiogram 01/23/2012: Global left ventricular systolic function is mildly reduced with wall motion abnormalities. Visual estimation of the left ventricular ejection fraction is 45%. Mild biatrial enlargement. The right ventricle is enlarged with reduced systolic function. Mild mitral and aortic regurgitation. Echocardiogram 02/17/2019: Global left ventricular systolic function is at lower limits of normal (Visually estimated EF 50%). The left ventricle is normal size. Left ventricular wall thickness is normal. Regional wall motion abnormalities (see diagram). Unable to assess diastolic dysfunction. Right ventricular systolic function appears reduced. The right ventricle is enlarged. Th right atrium is severely enlarged. Mild mitral regurgitation. No aortic valve stenosis. Mild aortic valve regurgitation. Doppler studies suggest normal right sided pressures. No previous study to compare. BNP 03/26/2019: Within normal. PMH: No past medical history on file. PSH: Past Surgical History: Procedure Laterality Date ATRIAL ABLATION SURGERY 06/13/2020 CARDIOVERSION 04/07/2019 HIP SURGERY 05/06/2012 SH: Social Determinants of Health Tobacco Use: Low Risk (12/19/2022) Patient History Smoking Tobacco Use: Never Smokeless Tobacco Use: Never Passive Exposure: Never Alcohol Use: Not on file Financial Resource Strain: No (more content not included)...[facility]01-08-2024 Evaluation note* Encounter Date Diagnosis Assessment Notes Treatment Notes Treatment Clinical Notes May, Mild cognitive impairment (ICD-10 - G31.84) [facility] Other 01-04-2024 Evaluation note* Encounter Date Diagnosis Assessment Notes Treatment Notes Treatment Clinical Notes May, ASHD (arteriosclerotic heart disease) (ICD-10 - I25.10) NM Imaging: LVEF 40% This patient is stable without activity related CP, dyspnea or lightheadedness. They are instructed to continue exercise and AHA diet plan. Continue secondary prevention measures. May, Stage 3a chronic kidney disease (ICD-10 - N18.31) The patient is instructed on adequate control of hypertension and diabetes, if appropriate. They are also educated on the associated risks of NSAIDs and PPI use with kidney disease. They were instructed on adequate fluid balance and to avoid dehydration. May, Primary hypertension (ICD-10 - I10) This patient is instructed to consume a healthy, low-fat, low-salt diet. They are also encouraged to continue exercise to achieve/maintain a normal BMI. May, Mild cognitive impairment (ICD-10 - G31.84) Short term memory difficulty. Remains functional, continues to drive w/o getting lost. Continues w/ normal appetite, normal bowel/bladder function, feels rested after sleeping. He denies hallucinations Instructed on brain exercises: - puzzles, word searches Instructed to make lists and review calendar daily May, Hyperlipidemia type II (ICD-10 - E78.01) Instructed on diet and exercise with continued statin therapy.Discussed the beneficial effects of lowering cholesterol in reducing the risk for cerebrovascular and cardiovascular disease. May, Gastroesophageal reflux disease with esophagitis without hemorrhage (ICD-10 - K21.00) Avoid lying flat after eating. Avoid eating 2 hours prior to bedtime. Smaller, frequent meals may be better tolerated.Weight loss if overweight.PPI with any heartburn.Monitor for dysphagia. May, Benign prostatic hyperplasia, presence of lower urinary tract symptoms unspecified (ICD-10 - N40.0) Continue w/ f/u evaluation. Flomax continues w/ minimal benefit. Some incontinence, medication w/ w/o benefit and expensive, has since stopped. May, Lumbar spondylosis (ICD-10 - M47.816) The patient is instructed to avoid bending, twisting or lifting. They are to use intermittent heat and ice as needed. They may schedule a massage or gentle manipulation. They may safely use Tylenol as needed. May, Pain in right knee (ICD-10 - M25.561) Mild arthritis per XR. Recommend quad exercises, ice/heat and Voltaren Gel. Recommend referral to Orthopedics for injections. May, H/O atrial flutter (ICD-10 - Z86.79) No s/s recurrence. No treatment necessary May, Fatigue, unspecified type (ICD-10 - R53.83) [facility] Other 09-18-2023 Evaluation note* Encounter Date Diagnosis Assessment Notes Treatment Notes Treatment Clinical Notes Jan, Essential hypertension (ICD-10 - I10) [facility] Other 08-28-2023 Evaluation note* Encounter Date Diagnosis Assessment Notes Treatment Notes Treatment Clinical Notes Dec, ASHD (arteriosclerotic heart disease) (ICD-10 - I25.10) NM Imaging: LVEF 40% [facility] Other 08-26-2023 Evaluation note* Encounter Date Diagnosis Assessment Notes Treatment Notes Treatment Clinical Notes Dec, ASHD (arteriosclerotic heart disease) (ICD-10 - I25.10) NM Imaging: LVEF 40% [facility] Other 08-23-2023 Evaluation note* Encounter Date Diagnosis Assessment Notes Treatment Notes Treatment Clinical Notes Dec, Lumbar spondylosis (ICD-10 - M47.816) [facility] Other 08-16-2023 NoteUT Cardiology Consult Note Reason for visit: s/p flutter ablation, [employer] loop monitoring for AF HPI: patient here for 2 month follow up with echo He has 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 singer HPI: 05/01/22 Pt doing well. No issues to report. Multiple LOOP checks have called episodes of A. fib but when I scrutinized him closely they appear to be more like sinus with PACs of sinus with PVCs. Most of these tracings have got significant artifact which makes it clear interpretation difficult. This was noted even before.in my prior visitI did personally check on 05/01/22, EKG 09/05/2021 shows sinus bradycardia 08/22/2020 shows sinus rhythm EP Study: Pt underwent flutter ablation on 06/13/20 IMPRESSION: 1. Status post successful ablation of typical atrial flutter. 2. No evidence of dual node physiology 3. Successful LOOP Implant procedure. Prior HPI: 84 yo man with history of CAD s/pCABG in 1994 with MEZA to LAD, SVG to diagonal and SVG to RCA. Cardiac cath in 2005 showed that MEZA to LAD and SVG to RCA were occluded. The SVG to the diagonal was patent and he had mildly reduced LV function with EF 45% which improved to 50%. Dr. La saw him for atrial flutter and performed cardioversion on 04/07/2019. He also stopped his atenolol due to his bradycardia. He also discussed with him the possibility of needing ablation if this recurs in the future as well as the possibility of requiring a pacemaker if he continues to be bradycardic with symptoms after stopping the beta sissy. urrently he is doing well. He has no chest pain and no shortness of breath. No significant lower extremity edema. He feels good. He has no palpitations and no dizziness. and would like to come off anticoagulation. 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 He has history of bradycardia with blocked PACs. EKG 02/24/2019 at 8:40 AM shows atrial flutter with a bolus to 1 AV block 07/15/2018 and 730 reveals atrial flutter with first 1 block 07/15/2018 9 AM shows sinus rhythm with underlying right bundle branch block at 42 bpm Cardioversion was performed on 04/07/[address] La who converted the flutter to sinus rhythm with evidence of significant sinus bradycardia Echocardiogram 01/23/2012: Global left ventricular systolic function is mildly reduced with wall motion abnormalities. Visual estimation of the left ventricular ejection fraction is 45%. Mild biatrial enlargement. The right ventricle is enlarged with reduced systolic function. Mild mitral and aortic regurgitation. Echocardiogram 02/17/2019: Global left ventricular systolic function is at lower limits of normal (Visually estimated EF 50%). The left ventricle is normal size. Left ventricular wall thickness is normal. Regional wall motion abnormalities (see diagram). Unable to assess diastolic dysfunction. Right ventricular systolic function appears reduced. The right ventricle is enlarged. Th right atrium is severely enlarged. Mild mitral regurgitation. No aortic valve stenosis. Mild aortic valve regurgitation. Doppler studies suggest normal right sided pressures. No previous study to compare. BNP 03/26/2019: Within normal. PMH: History reviewed. No pertinent past medical history. PSH: Past Surgical History: Procedure Laterality Date ATRIAL ABLATION SURGERY 06/13/2020 CARDIOVERSION 04/07/2019 HIP SURGERY 05/06/2012 SH: Social Determinants of Health Tobacco Use: Low Risk (12/19/2022) Patient History Smoking Tobacco Use: Never Smokeless Tobacco Use: Never Passive Exposure: Never Alcohol Use: Not on file Financial Resource Strain: Not on file Food Insecurity: Not on file Transportation Needs: Not on file Physical Activity: Not on file Stress: Not on file Social Connections: Not on file Intimate Partner Violence: Not on file Depression: Not on file Housing Stability: Not on file Allergies: Allergies Allergen Reactions Naproxen Unknown Weight: No results found for: PTWEIGHT Meds: Current Outpatient Medications on File Prior to Visit Medication Sig Dispense Refill aspirin 81 mg chewable tablet in the morning. atorvastatin (Lipitor) 40 mg tablet Take 1 tablet every day by oral route. ramesh (more content not included)...[facility] 10-31-2022 NoteReview of Systems All other systems reviewed and are negative.[facility] 10-31-2022 NoteUT Cardiology Consult Note Reason for visit: s/p flutter ablation, [employer] loop monitoring for AF HPI: patient here for 6-month follow-up Patient remote check of loop 10/30/2022 He has been noted to have several events of A-fib longest event lasting 1 hour and 6 minutes on September 04, 2022 he does have history of episodes of A-fib on loop which all appear to be sinus rhythm with PACs not felt any palpitations, lightness, dizziness, racing heart Per dr. singer HPI: 05/01/22 Pt doing well. No issues to report. Multiple LOOP checks have called episodes of A. fib but when I scrutinized him closely they appear to be more like sinus with PACs of sinus with PVCs. Most of these tracings have got significant artifact which makes it clear interpretation difficult. This was noted even before.in my prior visitI did personally check on 05/01/22, EKG 09/05/2021 shows sinus bradycardia 08/22/2020 shows sinus rhythm EP Study: Pt underwent flutter ablation on 06/13/20 IMPRESSION: 1. Status post successful ablation of typical atrial flutter. 2. No evidence of dual node physiology 3. Successful LOOP Implant procedure. Prior HPI: 84 yo man with history of CAD s/pCABG in 1994 with MEZA to LAD, SVG to diagonal and SVG to RCA. Cardiac cath in 2005 showed that MEZA to LAD and SVG to RCA were occluded. The SVG to the diagonal was patent and he had mildly reduced LV function with EF 45% which improved to 50%. Dr. La saw him for atrial flutter and performed cardioversion on 04/07/2019. He also stopped his atenolol due to his bradycardia. He also discussed with him the possibility of needing ablation if this recurs in the future as well as the possibility of requiring a pacemaker if he continues to be bradycardic with symptoms after stopping the beta sissy. urrently he is doing well. He has no chest pain and no shortness of breath. No significant lower extremity edema. He feels good. He has no palpitations and no dizziness. and would like to come off anticoagulation. 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 He has history of bradycardia with blocked PACs. EKG 02/24/2019 at 8:40 AM shows atrial flutter with a bolus to 1 AV block 07/15/2018 and 730 reveals atrial flutter with first 1 block 07/15/2018 9 AM shows sinus rhythm with underlying right bundle branch block at 42 bpm Cardioversion was performed on 04/07/[address] La who converted the flutter to sinus rhythm with evidence of significant sinus bradycardia Echocardiogram 01/23/2012: Global left ventricular systolic function is mildly reduced with wall motion abnormalities. Visual estimation of the left ventricular ejection fraction is 45%. Mild biatrial enlargement. The right ventricle is enlarged with reduced systolic function. Mild mitral and aortic regurgitation. Echocardiogram 02/17/2019: Global left ventricular systolic function is at lower limits of normal (Visually estimated EF 50%). The left ventricle is normal size. Left ventricular wall thickness is normal. Regional wall motion abnormalities (see diagram). Unable to assess diastolic dysfunction. Right ventricular systolic function appears reduced. The right ventricle is enlarged. Th right atrium is severely enlarged. Mild mitral regurgitation. No aortic valve stenosis. Mild aortic valve regurgitation. Doppler studies suggest normal right sided pressures. No previous study to compare. BNP 03/26/2019: Within normal. PMH: No past medical history on file. PSH: Past Surgical History: Procedure Laterality Date ATRIAL ABLATION SURGERY 06/13/2020 CARDIOVERSION 04/07/2019 HIP SURGERY 05/06/2012 SH: Social Determinants of Health Tobacco Use: Low Risk (05/01/2022) Patient History Smoking Tobacco Use: Never Smokeless Tobacco Use: Never Passive Exposure: Never Alcohol Use: Not on file Financial Resource Strain: Not on file Food Insecurity: Not on file Transportation Needs: Not on file Physical Activity: Not on file Stress: Not on file Social Connections: Not on file Intimate Partner Violence: Not on file Depression: Not on file Housing Stability: Not on file Allergies: Allergies Allergen Reactions Naproxen Unknown Weight: No results found for: PTWEIGHT Meds: Current Outpatient Medications on File Prior to Visit Medication Sig Dispense Refill aspirin 81 mg chewable tablet in the morning. atorvastatin (Lipitor) 40 mg tablet Take 1 tablet every day by oral route. cetirizine (ZyrTEC) 10 mg capsule Take by oral route. finasteride (Proscar) 5 mg tablet Take 1 tablet every day by oral route. furosemide (Lasix) 40 mg tablet Take 1 tablet (40 mg) by mouth in the morning. 90 tablet 3 lisinopril 5 mg tablet 1 tablet in the morning. niacin, inositol niacinate, 500 mg capsule Take 1 capsul (more content not included)...[facility]06-23-2023 Evaluation note* Encounter Date Diagnosis Assessment Notes Treatment Notes Treatment Clinical Notes Oct, ASHD (arteriosclerotic heart disease) (ICD-10 - I25.10) This patient is stable without activity related CP, dyspnea or lightheadedness. They are instructed to continue exercise and AHA diet plan. Oct, Essential hypertension (ICD-10 - I10) This patient is instructed to consume a healthy, low-fat, low-salt diet. They are also encouraged to continue exercise to achieve/maintain a normal BMI. Oct, Hyperlipidemia type II (ICD-10 - E78.01) Instructed on diet and exercise with continued statin therapy.Discussed the beneficial effects of lowering cholesterol in reducing the risk for cerebrovascular and cardiovascular disease. Oct, Chronic venous insufficiency (ICD-10 - I87.2) Avoid salt and elevate lower extremities, support stockings, inspect legs and feet daily for blisters and ulcerations. Oct, Lumbar spondylosis (ICD-10 - M47.816) The patient is instructed to avoid bending, twisting or lifting. They are to use intermittent heat and ice as needed. They may schedule a massage or gentle manipulation. They may safely use Tylenol as needed. Oct, Macrocytosis without anemia (ICD-10 - D75.89) Monitor for now B12, FA normal Oct, Gastroesophageal reflux disease with esophagitis without hemorrhage (ICD-10 - K21.00) Diet instructions: Smaller portions, avoid eating and laying flat, avoid eating or drinking prior to bedtime. Weight loss. Oct, Bilateral carpal tunnel syndrome (ICD-10 - G56.03) Instructed to wear splints but refuses. Symptoms brief and tolerable, exclusively at night Oct, H/O atrial flutter (ICD-10 - Z86.79) No s/s recurrence. Continue AC to prevent thromboembolic events. No bleeding complications Oct, [facility] (current) use of opiate analgesic (ICD-10 - Z79.891) This patient requires opiate use on a daily basis to control pain.This patient does not exhibit drug-seeking or aberrant behavior.This patient is able to continue with ADL, with an adequate quality of life, that they would not be able to achieve without the prescription pain medication.There has been no surgical treatment recommended for this condition.Use of nonopiate treatment should be continued, such as nonstrenuous and aquatic exercises.This patient has a pain management contract and they have been counseled on safe storage of the medication.They have been counseled on the risks of concomitant use with alcohol or sedating meds. PDMP is being followed and this patient's OARRS report is being monitored every 90 days. [employer] Other 04-14-2023 Hospital Discharge instructions Patient Education 08/17/2022 07:52:21 Benign Prostatic Hyperplasia Benign Prostatic Hyperplasia Benign prostatic hyperplasia (BPH) is an enlarged prostate gland that is caused by the normal agingprocess and not by cancer. The prostate is a walnut-sized gland that is involved in the production of semen. It is located in front of the rectum and below the bladder. The bladder stores urine and the urethra is the tube that carries the urine out of the body. The prostate may get bigger as a man gets older. An enlarged prostate can press on the urethra. This can make it harder to pass urine. The build-up of urine in the bladder can cause infection. Back pressure and infection may progress to bladder damage and kidney (renal) failure. What are the causes? This condition is part of a normal aging process. However, not all men develop problems from this condition. If the prostate enlarges away from the urethra, urine flow will not be blocked. If it enlarges toward the urethra and compresses it, there will be problems passing urine. What increases the risk? This condition is more likely to develop in men over the age of 50 years. What are the signs or symptoms? Symptoms of this condition include: Getting up often during the night to urinate. Needing to urinate frequently during the day. Difficulty starting urine flow. Decrease in size and strength of your urine stream. Leaking (dribbling) after urinating. Inability to pass urine. This needs immediate treatment. Inability to completely empty your bladder. Pain when you pass urine. This is more common if there is also an infection. Urinary tract infection (UTI). How is this diagnosed? This condition is diagnosed based on your medical history, a physical exam, and your symptoms. Tests will also be done, such as: A post-void bladder scan. This measures any amount of urine that may remain in your bladder after you finish urinating. A digital rectal exam. In a rectal exam, your health care provider checks your prostate by putting a lubricated, gloved finger into your rectum to feel the back of your prostate gland. This exam detects the size of your gland and any abnormal lumps or growths. An exam of your urine (urinalysis). A prostate specific antigen (PSA) screening. This is a blood test used to screen for prostate cancer. An ultrasound. This test uses sound waves to electronically produce a picture of your prostate gland. Your health care provider may refer you to a specialist in kidney and prostate diseases (urologist). How is this treated? Once symptoms begin, your health care provider will monitor your condition (active surveillance or watchful waiting). Treatment for this condition will depend on the severity of your condition. Treatment may include: Observation and yearly exams. This may be the only treatment needed if your condition and symptoms are mild. Medicines to relieve your symptoms, including: ?Medicines to shrink the prostate. ?Medicines to relax the muscle of the prostate. Surgery in severe cases. Surgery may include: ?Prostatectomy. In this procedure, the prostate tissue is removed completely through an open incision or with a laparoscope or robotics. ?Transurethral resection of the prostate (TURP). In this procedure, a tool is inserted through the opening at the tip of the penis (urethra). It is used to cut away tissue of the inner core of the prostate. The pieces are removed through the same opening of the penis. This removes the blockage. ?Transurethral incision (TUIP). In this procedure, small cuts are made in the prostate. This lessens the prostate's pressure on the urethra. ?Transurethral microwave thermotherapy (TUMT). This procedure uses microwaves to create heat. The heat destroys and removes a small amount of prostate tissue. ?Transurethral needle ablation (TUNA). This procedure uses radio frequencies to destroy and remove a small amount of prostate tissue. ?Interstitial laser coagulation (ILC). This procedure uses a laser to destroy and remove a small amount of prostate tissue. ?Transurethral electrovaporization (TUVP). This procedure uses electrodes to destroy and remove a small amount of prostate tissue. ?Prostatic urethral lift. This procedure inserts an implant to push the lobes of the prostate away from the urethra. Follow these instructions at home: Take bleh-xow-jivwcko and prescription medicines only as told by your health care provider. Monitor your symptoms for any changes. Contact your health care provider with any changes. Avoid drinking large amounts of liquid before going to bed or out in public. Avoid or reduce how much caffeine or alcohol you drink. Give yourself time when you urinate. Keep all follow-up visits as told by your health care provider. This is important. Contact a health care provider if: You have unexplained back pain. Your symptoms do not get better with treatment. You develop side effects from the medicine you are taking. Your urine becomes very dark or has a bad smell. Your lower abdomen becomes distended and you have trouble passing your urine. Get help right away if: You have a fever or chills. You suddenly cannot urinate. You feel lightheaded, or very dizzy, or you faint. There are large amounts of blood or clots in the urine. Your urinary problems become hard to manage. You develop moderate to severe low back or flank pain. The flank is the side of your body between the ribs and the hip. These symptoms may represent a serious problem that is an emergency. Do not wait to see if the symptoms will go away. Get medical help right away. Call your local emergency services (911 in the [place] Do not drive yourself to the hospital. Summary Benign prostatic hyperplasia (BPH) is an enlarged prostate that is caused by the normal aging process and not by cancer. An enlarged prostate can press on the urethra. This can make it hard to pass urine. This condition is part of a normal aging process and is more likely to develop in men over the age of 50 years. Get help right away if you suddenly cannot urinate. This information is not intended to replace advice given to you by your health care provider. Make sure you discuss any questions you have with your health care provider. Document Released: 04/22/2006 Document Revised: 03/17/2019 Document Reviewed: 05/27/2017 [employer] Patient Education 2020 [employer]. Follow Up Care 08/14/2021 10:16:11 With:PRINCESS GARCIA, Conner Simpson, URL Address: [facility] [address], [place] [address] [phone] When:Within 1 Year(s) Comments:1 year fu [facility] Jorge L 04-11-2022 Hospital Discharge instructions Patient Education 08/14/2021 10:10:59 Urethral Stricture Urethral Stricture Urethral stricture is narrowing of the tube (urethra) that carries urine from the bladder out of the body. The urethra can become narrow due to scar tissue from an injury or infection. This can make it difficult to pass urine. In women, the urethra opens above the vaginal opening. In men, the urethra opens at the tip of the penis, and the urethra is much longer than it is in women. Because of the length of the male urethra, urethral stricture is much more common in men. This condition is treated with surgery. What are the causes? In both men and women, common causes of urethral stricture include: Urinary tract infection (UTI). Sexually transmitted infection (STI). Use of a tube placed into the urethra to drain urine from the bladder (urinary catheter). Urinary tract surgery. In men, common causes of urethral stricture include: A severe injury to the pelvis. Prostate surgery. Injury to the penis. In many cases, the cause of urethral stricture is not known. What increases the risk? You are more likely to develop this condition if you: Are male. Men who have had prostate surgery are at risk of developing this condition. Use a urinary catheter. Have had urinary tract surgery. What are the signs or symptoms? The main symptom of this condition is difficulty passing urine. This may cause decreased urine flow, dribbling, or spraying of urine. Other symptom of this condition may include: Frequent UTIs. Blood in the urine. Pain when urinating. Swelling of the penis in men. Inability to pass urine (urinary obstruction). How is this diagnosed? This condition may be diagnosed based on: Your medical history and a physical exam. Urine tests to check for infection or bleeding. X-rays. Ultrasound. Retrograde urethrogram. This is a type of test in which dye is injected into the urethra and then an X-ray is taken. Urethroscopy. This is when a thin tube with a light and camera on the end (urethroscope) is used tolook at the urethra. How is this treated? This condition is treated with surgery. The type of surgery that you have depends on the severity of your condition. You may have: Urethral dilation. In this procedure, the narrow part of the urethra is stretched open (dilated) with dilating instruments or a small balloon. Urethrotomy. In this procedure, a urethroscope is placed into the urethra, and the narrow part of the urethra is cut open with a surgical blade inserted through the urethroscope. Open surgery. In this procedure, an incision is made in the urethra, the narrow part is removed, and the urethra is reconstructed. Follow these instructions at home: Take jfor-aqs-gryzwnc and prescription medicines only as told by your health care provider. If you were prescribed an antibiotic medicine, take it as told by your health care provider. Do notstop taking the antibiotic even if you start to feel better. Drink enough fluid to keep your urine pale yellow. Keep all follow-up visits as told by your health care provider. This is important. Contact a health care provider if: You have signs of a urinary tract infection, such as: ?Frequent urination or passing small amounts of urine frequently. ?Needing to urinate urgently. ?Pain or burning with urination. ?Urine that smells bad or unusual. ?Cloudy urine. ?Pain in the lower abdomen or back. ?Trouble urinating. ?Blood in the urine. ?Vomiting or being less hungry than normal. ?Diarrhea or abdominal pain. ?Vaginal discharge, if you are female. Your symptoms are getting worse instead of better. Get help right away if: You cannot pass urine. You have a fever. You have swelling, bruising, or discoloration of your genital area. This includes the penis, scrotum, and inner thighs for men, and the outer genital organs (vulva) and inner thighs for women. You develop swelling in your legs. You have difficulty breathing. Summary Urethral stricture is narrowing of the tube (urethra) that carries urine from the bladder out of the body. The urethra can become narrow due to scar tissue from an injury or infection. This condition can make it difficult to pass urine. This condition is treated with surgery. The type of surgery that you have depends on the severity of your condition. Contact a health care provider if your symptoms get worse or you have signs of a urinary tract infection. This information is not intended to replace advice given to you by your health care provider. Make sure you discuss any questions you have with your health care provider. Document Released: 05/18/2016 Document Revised: 12/03/2018 Document Reviewed: 12/03/2018 [employer] Patient Education 2020 [employer]. 08/14/2021 10:10:57 Benign Prostatic Hyperplasia Benign Prostatic Hyperplasia Benign prostatic hyperplasia (BPH) is an enlarged prostate gland that is caused by the normal agingprocess and not by cancer. The prostate is a walnut-sized gland that is involved in the production of semen. It is located in front of the rectum and below the bladder. The bladder stores urine and the urethra is the tube that carries the urine out of the body. The prostate may get bigger as a man gets older. An enlarged prostate can press on the urethra. This can make it harder to pass urine. The build-up of urine in the bladder can cause infection. Back pressure and infection may progress to bladder damage and kidney (renal) failure. What are the causes? This condition is part of a normal aging process. However, not all men develop problems from this condition. If the prostate enlarges away from the urethra, urine flow will not be blocked. If it enlarges toward the urethra and compresses it, there will be problems passing urine. What increases the risk? This condition is more likely to develop in men over the age of 50 years. What are the signs or symptoms? Symptoms of this condition include: Getting up often during the night to urinate. Needing to urinate frequently during the day. Difficulty starting urine flow. Decrease in size and strength of your urine stream. Leaking (dribbling) after urinating. Inability to pass urine. This needs immediate treatment. Inability to completely empty your bladder. Pain when you pass urine. This is more common if there is also an infection. Urinary tract infection (UTI). How is this diagnosed? This condition is diagnosed based on your medical history, a physical exam, and your symptoms. Tests will also be done, such as: A post-void bladder scan. This measures any amount of urine that may remain in your bladder after you finish urinating. A digital rectal exam. In a rectal exam, your health care provider checks your prostate by putting a lubricated, gloved finger into your rectum to feel the back of your prostate gland. This exam detects the size of your gland and any abnormal lumps or growths. An exam of your urine (urinalysis). A prostate specific antigen (PSA) screening. This is a blood test used to screen for prostate cancer. An ultrasound. This test uses sound waves to electronically produce a picture of your prostate gland. Your health care provider may refer you to a specialist in kidney and prostate diseases (urologist). How is this treated? Once symptoms begin, your health care provider will monitor your condition (active surveillance or watchful waiting). Treatment for this condition will depend on the severity of your condition. Treatment may include: Observation and yearly exams. This may be the only treatment needed if your condition and symptoms are mild. Medicines to relieve your symptoms, including: ?Medicines to shrink the prostate. ?Medicines to relax the muscle of the prostate. Surgery in severe cases. Surgery may include: ?Prostatectomy. In this procedure, the prostate tissue is removed completely through an open incision or with a laparoscope or robotics. ?Transurethral resection of the prostate (TURP). In this procedure, a tool is inserted through the opening at the tip of the penis (urethra). It is used to cut away tissue of the inner core of the prostate. The pieces are removed through the same opening of the penis. This removes the blockage. ?Transurethral incision (TUIP). In this procedure, small cuts are made in the prostate. This lessens the prostate's pressure on the urethra. ?Transurethral microwave thermotherapy (TUMT). This procedure uses microwaves to create heat. The heat destroys and removes a small amount of prostate tissue. ?Transurethral needle ablation (TUNA). This procedure uses radio frequencies to destroy and remove a small amount of prostate tissue. ?Interstitial laser coagulation (ILC). This procedure uses a laser to destroy and remove a small amount of prostate tissue. ?Transurethral electrovaporization (TUVP). This procedure uses electrodes to destroy and remove a small amount of prostate tissue. ?Prostatic urethral lift. This procedure inserts an implant to push the lobes of the prostate away from the urethra. Follow these instructions at home: Take zivs-mbf-hxqzone and prescription medicines only as told by your health care provider. Monitor your symptoms for any changes. Contact your health care provider with any changes. Avoid drinking large amounts of liquid before going to bed or out in public. Avoid or reduce how much caffeine or alcohol you drink. Give yourself time when you urinate. Keep all follow-up visits as told by your health care provider. This is important. Contact a health care provider if: You have unexplained back pain. Your symptoms do not get better with treatment. You develop side effects from the medicine you are taking. Your urine becomes very dark or has a bad smell. Your lower abdomen becomes distended and you have trouble passing your urine. Get help right away if: You have a fever or chills. You suddenly cannot urinate. You feel lightheaded, or very dizzy, or you faint. There are large amounts of blood or clots in the urine. Your urinary problems become hard to manage. You develop moderate to severe low back or flank pain. The flank is the side of your body between the ribs and the hip. These symptoms may represent a serious problem that is an emergency. Do not wait to see if the symptoms will go away. Get medical help right away. Call your local emergency services (911 in the [place] Do not drive yourself to the hospital. Summary Benign prostatic hyperplasia (BPH) is an enlarged prostate that is caused by the normal aging process and not by cancer. An enlarged prostate can press on the urethra. This can make it hard to pass urine. This condition is part of a normal aging process and is more likely to develop in men over the age of 50 years. Get help right away if you suddenly cannot urinate. This information is not intended to replace advice given to you by your health care provider. Make sure you discuss any questions you have with your health care provider. Document Released: 04/22/2006 Document Revised: 03/17/2019 Document Reviewed: 05/27/2017 [employer] Patient Education 2020 [employer] Follow Up Care 02/06/2021 12:37:54 With:PRINCESS GARCIA, Conner Simpson, URL Address: [facility] [address] , [place] [address]- [phone] When:08/14/2022 Comments:f/u in 1 year [facility] evaluation + Plan note Future Appointments Appointment Date:08/17/2022 08:45:00 AM Scheduled Provider:Conner IRENE MD Location:[facility] Appointment Type:URO Office Visit [facility] evaluation + Plan note Future Appointments Appointment Date:08/19/2023 09:45:00 AM Scheduled Provider:Conner IRENE MD Location:[facility] Appointment Type:URO Office Visit [facility] evaluation noteNo [facility]No[facility] Other [facility] general Narrative - Reported* Type Description Date Medical History Lumbar spondylosis Medical History Anserine bursitis Medical History Chronic venous insufficiency Medical History Benign prostatic hyp erplasia, presence of lower urinary tract symptoms unspecified Medical History Essential hypertension Medical History Hyperlipidemia type II Medical History Gastroesophageal ref lux disease with esophagitis without hemorrhage Medical History ASHD (arteriosclerotic heart dis ease) Medical History Diarrhea Medical History Carpal tunnel syndrome, bilatera l Medical History Arthritis of knee, left Medical History H/O atrial flutter Medical History Gross hematuria Medical History Macrocytosis without anemia Medical History Anticoagulant long-term use Medical History Typical atrial flutter Medical History High risk medication use Medical History Arthritis of knee, right Medical History Left leg swelling Medical History [facility] (current) use of opiat e analgesic Surgical History TURP, WITH CYSTOSCOPY Surgical History ABLATION, ARRHYTHMOG ENIC FOCUS, FOR ATRIAL FLUTTER, IN CARDIAC CATHETERIZATION Surgical History CABG Surgical History B/L HERNIORRPHAPHY Surgical History COLONSCOPY Surgical History EGD Hospitalization History SEE SURGICAL [facility]X [facility] Xi[facility] Other Hispacj general Narrative - Reported* Type Description Date Medical History Lumbar spondylosis Medical History Chronic venous insufficiency Medical History Benign prostatic hyp erplasia, presence of lower urinary tract symptoms unspecified Medical History Essential hypertension Medical History Hyperlipidemia type II Medical History Gastroesophageal ref lux disease with esophagitis without hemorrhage Medical History ASHD (arteriosclerotic heart dis ease) Medical History Carpal tunnel syndrome, bilatera l Medical History Arthritis of knee, left Medical History H/O atrial flutter Medical History Gross hematuria Medical History Macrocytosis without anemia Medical History Anticoagulant long-term use Medical History Typical atrial flutter Medical History Arthritis of knee, right 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 Medical History HFrEF Medical History Ischemic cardiomyopathy Surgical History TURP, WITH CYSTOSCOPY Surgical History ABLATION, ARRHYTHMOG ENIC FOCUS, FOR ATRIAL FLUTTER, IN CARDIAC CATHETERIZATION Surgical History CABG Surgical History B/L HERNIORRPHAPHY Surgical History COLONSCOPY Surgical History EGD Hospitalization History SEE SURGICAL HX [employer] Other Hospital course Narrative No data available for this section [facility] progress note No data available for this section [facility] Summary Purpose Family History No Family History Records FoundNo Family History Records FoundNo Family History Records FoundNo Family History Records Found Advance Directives No Advanced Directives Records FoundNo Advanced Directives Records FoundNo Advanced Directives Records FoundNo Advanced Directives Records Found Additional Source Comments (unrecognized sect ion and content) No Status Records FoundNo Status Records FoundNo Status Records FoundNo Status Records Found INFORMATION SOURCE (unrecogn ized section and content) DATE CREATED AUTHOR 06/10/2021 [facility] DATE CREATED AUTHOR AUTHOR'S ORGANIZ ATION 08/16/2022 [facility] DATE CREATED AUTHOR AUTHOR'S ORGANIZ ATION 08/18/2022 [facility] DATE CREATED AUTHOR AUTHOR'S ORGANIZ ATION 05/15/2023 [facility] Patient Care team informatio n (unrecognized section and content) Personnel Name: MIGUEL GUEVARA DO Address: Address: [facility] [place] [address]- REASON FOR VISIT (unrecogniz ed section and content) 3 month Follow upRefillNo In formationNo InformationNo InformationRefillrefillXray/lab results3 month Follow up, [facility]?MRINo InformationCT results FOR RECORDS PERTAINING TO PATIENTS WHO ARE OR HAVE BEEN ENROLLED IN A CHEMICAL DEPENDENCY/SUBSTANCEABUSE PROGRAM, SOME INFORMATION MAY BE OMITTED. This clinical summary was aggregated from multiple sources. Caution should be exercised in using it in the provision of clinical care. This summary normalizes information from multiple sources, and as a consequence, information in this document may materially change the coding, format and clinical context of patient data. In addition, data may be omitted in some cases. CLINICAL DECISIONS SHOULD BE BASED ON THE PRIMARY CLINICAL RECORDS. [facility]. provides no warranty or guarantee of the accuracy or completeness of information in this document.
[2023-05-28 09:35] LABS: Basophils Absolute Auto 0.1 10^3/uL (0.0-0.1); Basophils Percent Auto 0.9 % (0.2-2.0); Eosinophils Absolute Auto 0.3 10^3/uL (0.0-0.7); Eosinophils Percent Auto 6.1 % (0.9-7.0); Hematocrit 47.7 % (42.0-54.0); Hemoglobin 16.1 g/dL (14.0-18.0); Immature Granulocytes Abs Auto 0.02 10^3/uL (0.00-0.03); Immature Granulocytes Pct Auto 0.4 % (0.0-0.5); Lymphocytes Absolute Auto 1.3 10^3/uL (1.2-3.8); Lymphocytes Percent Auto 23.4 % (20.5-60.0); Mean Corpuscular HGB Conc 33.8 g/dL (29.9-35.2); Mean Corpuscular Volume 103.7 fL (80.0-94.0); Monocytes Absolute Auto 0.7 10^3/uL (0.3-0.8); Monocytes Percent Auto 11.6 % (1.7-12.0); Neutrophils Absolute Auto 3.2 10^3/uL (1.4-6.5); Neutrophils Percent Auto 57.6 % (43.0-75.0); Platelet Count 179 10^3/uL (150-450); Red Cell Distribution Width 11.9 % (11.0-15.0); White Blood Count 5.6 10^3/uL (4.0-11.0)
[2023-05-28 10:28] LABS: Anion Gap 10.3; BUN Creatinine Ratio 17.6; Calcium 9.3 mg/dL (8.5-10.1); Carbon Dioxide 29.8 mmol/L (21.0-32.0); Chloride 105 mmol/L (98-107); Estimated GFR (African America >60 (>=60); Estimated GFR (Non-African Ame 58 (>=60); Glucose 96 mg/dL (74-106); Potassium 4.1 mmol/L (3.5-5.1); Sodium 141 mmol/L (136-145); Thyroid Stimulating Hormone 4.071 uIU/mL (0.358-3.740)
== END 2023-05-28 09:15 | disposition home or self-care (01) ==
LOC: LAB 09:15
PROVIDERS: PCP Internal Medicine; Visit Provider Internal Medicine
DX: N18.31 Chronic kidney disease, stage 3a (principal); G31.84 Mild cognitive impairment of uncertain or unknown etiology; R53.83 Other fatigue
CPT/HCPCS: 36415; 80048; 82607; 84443; 85025

== ENCOUNTER 2023-07-10 11:15 | Emergency (ER) | payer MEDICARE, SELFPAY ==
[2023-07-10] VITALS (17 sets, daily range): BP systolic 112–160; BP diastolic 43–82; PULSE 52–69; RESP 16–24; TEMP 36.7; O2SAT 94–99; BMI 22.6
--- OUTSIDE RECORDS SUMMARY | 2023-07-10 11:32 | XMS_ITS | CCD ---
Author Name Unknown Address [address] [place] [address] Organization [facility] Care Team Providers Care Ratoprinter Name Role Phone MIGUEL GUEVARA Primary Care Physician [phone] KAILASH BARNES Consulting Unavailable MEAGAN, GEOVANY Admitting Unavailable MEAGAN, GEOVANY Attending Unavailable ISMAEL, DR RIVERA Primary Care Unavailable ARELI, EDUARDO Consulting Unavailable CAMILO, JENARO Webber Consulting Unavailable ISMAEL, DR RIVERA Attending Unavailable BALL, DR RIVERA Admitting Unavailable ISMAEL, DR RIVERA Primary Care Unavailable ISMAEL, DR RIVERA Consulting Unavailable BALL, DR RIVERA Consulting Unavailable BALL, DR RIVERA Attending Unavailable BALL, DR RIVERA Admitting Unavailable BALL, DR RIVERA Primary Care Unavailable BALL, DR RIVERA Primary Care Unavailable HAY ., DR ALVAREZ Admitting Unavailable HAY ., DR ALVAREZ Consulting Unavailable HAY ., DR ALVAREZ Attending Unavailable CALABRESE, ALYCIA Consulting Unavailable PRINCESS, Conner Simpson Attending Unavailable PRINCESS, Conner Simpson Attending Unavailable Ismael, Miguel Unavailable CAMACHO SINGER Attending Unavailable ASHOK, ELIJAH Attending Unavailable ASHOK, ELIJHA Attending Unavailable CADE, CAMACHO Referring Unavailable SERGIO, HAWK Vanegas Referring Unavailable SERGIO, HAWK Vanegas Attending Unavailable SERGIO, HAWK Vanegas Referring Unavailable ANUM FOLEY Attending Unavailable Allergies Allergy Classification Reported Allergen(s) Allergy Type Date of Onset Reaction(s) Facility (17 sources) Naproxen; Translations: [naproxen] Drug Allergy 4 Unknown (qualifier value) [facility] (1 source) Naproxen Drug Allergy 7 [facility] (6 sources) patient allergy list reviewed by nurse or physicia Propensity to adverse reactions 9 Comment:Done Fanitics Other Medications Current Medications Medication Drug Class(es) Dates Sig (Normalized) Sig (Original) apixaban 5 mg oral tablet (2 sources) Factor Xa Inhibitor Start: 05-12-2020 take 1 mg by mouth twice daily Eliquis 5 mg oral tablet mg tab(s), Oral, BID, Refills(s) 0 Start Date: 05/12/20 Status: Ordered aspirin 81 mg delayed release oral tablet (15 sources) Platelet Aggregation Inhibitor, Nonsteroidal Anti-inflammatory Drug Start: 06-17-2023 take 81 mg by mouth once daily Aspirin Active 81 MG PO Daily June 17, 2023 12:00am [facility] Aspirin 81 81 MG 1 tablet Orally Once a day Active take 1 tablet by mouth once nika y Aspirin 81 81 MG 1 tablet Orally Once a day Active atorvastatin 40 mg oral tablet (17 sources) HMG-CoA Reductase Inhibitor Start: 06-17-2023 take 40 mg by mouth once daily Atorvastatin Active 40 MG PO Daily June 17, 2023 12:00am Start: 05-12-2020 take 1 mg by mouth once daily atorvastatin 40 mg Tab mg tab(s), Oral, Daily, Refills(s) 0 Start Date: 05/12/20 Status: Ordered cetirizine hydrochloride 10 mg oral capsule (17 sources) Histamine-1 Receptor Antagonist Start: 06-17-2023 take 1 capsule by mouth once daily Cetirizine (Zyrtec) 10 mg capsule Active 10 MG PO Daily June 17, 2023 12:00am Start: 05-13-2020 Zyrtec Daily, Refills(s) 0 Start Date: 05/13/20 Status: Ordered take 1 capsule by mo [facility] every twenty-four hours ZyrTEC Allergy 10 MG 1 capsule Orally Once a day Active furosemide 40 mg oral tablet (17 sources) Loop Diuretic Start: 06-17-2023 take 40 mg by mouth once daily Furosemide Active 40 MG PO Daily June 17, 2023 12:00am Start: 05-12-2020 take 1 mg by mouth once daily furosemide 40 mg Tab mg tab(s), Oral, Daily, Refills(s) 0 Start Date: 05/12/20 Status: Ordered lisinopril 10 mg oral tablet (17 sources) Angiotensin Converting Enzyme Inhibitor Start: 06-17-2023 take 10 mg by mouth once daily Lisinopril Active 10 MG PO Daily June 17, 2023 12:00am Start: 06-09-2022 take 1 tablet by snow th every twenty-four hours Lisinopril 10 MG 1 [...] Daily, # 30 tab(s), Refills(s) 11, Pharmacy: [id number], 170, cm, 08/17/22 8:49:00 EDT, Height/Length Dosing, 66, kg, 08/17/22 8:49:00 EDT, Weight Dosing Start Date: 08/17/22 Status: Ordered nitroglycerin 0.4 mg sublingual tablet (12 sources) Nitrate Vasodilator Start: 06-17-2023 Nitroglycerin (Nitrostat) 0.4 mg tablet, sublingual Active MG SUBLINGUAL June 17, 2023 12:00am FreeTextSig: as directed Sublingual PRN chest pain; Note: Source Status: Taking; Provider: Ismael Dixon Start: 01-02-2023 Nitrostat 0.4 MG as directed Sublingual PRN chest pain Dec, Active Start: 05-13-2020 nitroglycerin Refills(s) 0 Start Date: 05/13/20 Status: Ordered omeprazole 40 mg delayed release oral capsule (16 sources) Proton Pump Inhibitor Start: 06-17-2023 take 40 mg by mouth once daily before breakfast Omeprazole Active 40 MG PO Daily June 17, 2023 12:00am ON AN EMPTY STOMACH 1/2 HOUR BEFORE BREAKFAST Start: 05-12-2020 take 1 mg by mouth [...] Ordered tamsulosin hydrochloride 0.4 mg oral capsule (15 sources) alpha-Adrenergi c Sissy Start: 06-17-2023 take 1 capsule by mouth once daily Tamsulosin Active 1 CAP PO Daily June 17, 2023 12:00am FreeTextSi capsule Orally Once a day; Note: Source Status: Taking; Provider: Ismael Rivera ( ) take 1 capsule by mo [facility] every twenty-four hours Tamsulosin HCl 0.4 MG 1 capsule Orally Once a day Active traMADol hydrochloride 50 mg oral tablet (17 sources) Opioid Agonist Start: 06-17-2023 take 1 tablet by mouth every eight hours as needed for pain Tramadol Active MG PO June 17, 2023 12:00am FreeTextSi tablet Orally every 8 hours PRN severe pain; Note: Source Status: Continue; Provider: Ismael Dixon Start: 12-26-2022 take 1 tablet by snow every eight hours as needed for pain traMADol HCl 50 MG 1 tablet Orally every 8 hours PRN severe pain Dec, Active Start: 05-12-2020 take 1 tablet by snow every four hours as needed for pain tramadol 50 mg oral tablet 50 mg = 1 tab(s), Oral, q4hr, PRN for pain, # 60 tab(s), Refills(s) 0 Start Date: 05/12/20 Status: Ordered take 1 tablet by snow every twenty-four hours traMADol HCl 50 MG 1 tablet as needed Orally Once a day Active Problems Active Problems Problem Classification Problem Date Documented Da te Episodic/Chronic Abdominal pain (3 sources) Lower abdominal pain, unspecified; Translations: [LOWER ABDOMINAL PAIN UNSPECIFIED] Onset: 3 Episodic Cardiac dysrhythmias (20 sources) Typical atrial flutter; Translations: [Typical atrial flutter] 05-12-2020 Chronic Chronic kidney disease (8 sources) Chronic kidney disease stage 3A ; Translations: [Stage 3a chronic kidney disease] 06-17-2023 Chronic Congestive heart failure; nonhypertensive (6 sources) Heart failure, unspecified; Translations: [Chronic systolic heart failure] Onset: 3 Chronic Coronary atherosclerosis and other heart disease (20 sources) Coronary arteriosclerosis; Translations: [Atherosclerotic heart disease of [place] coronary artery without angina pectoris] Onset: 2 [...] hypertension] 05-12-2020 Chronic Gastroduodenal ulcer (except hemorrhage) (14 sources) Duodenal ulcer without hemorrhage, without perforation AND without obstruction; Translations: [Duodenal ulcer, unspecified as acute or chronic, without hemorrhage or perforation and without obstruction] Chronic Gastroduodenal ulcer (except hemorrhage) (2 sources) H/O: duodenal ulcer 05-12-2020 Episodic Genitourinary symptoms and ill-defined conditions (3 sources) Urge incontinence of urine; Translations: [Urge incontinence] Onset: 3 05-13-2020 Chronic Genitourinary symptoms and ill-defined conditions (20 sources) Nocturia; Translations: [Nocturia] Onset: 2 Episodic [...] 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 Chronic Malaise and fatigue (8 sources) Other malaise and fatigue; Translations: [Malaise and fatigue] Onset: 4 Episodic Noninfectious gastroenteritis (1 source) Noninfective gastroenteritis and colitis, unspecified; Translations: [NONINFECTIVE GE AND COLITIS UNS] Onset: 3 Episodic Osteoarthritis (20 sources) Osteoarthritis of hip; Translations: [Osteoarthritis of knee] 05-12-2020 Chronic Other aftercare (20 sources) Long-term current use of anticoagulant; Translations: [termite treater (current) use of anticoagulants] 05-12-2020 Episodic Other aftercare (1 source) termite treater (current) use of aspirin; Translations: [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 CURRENT USE OF ASPIRIN] Onset: 3 Episodic Other aftercare (3 sources) Other lobsterman (current) drug therapy; Translations: [OTH PRISON CURRENT DRUG THERAPY] Onset: 3 Episodic Other aftercare (13 sources) H/O: high risk medication; Translations: [Other halfway (current) drug therapy] Episodic Other aftercare (13 sources) High risk drug monitoring status; Translations: [group home (current) use of opiate analgesic] Episodic Other aftercare (2 sources) group home (current) use of opiate analgesic; Translations: [termite treater (current) use of opiate analgesic] Episodic Other aftercare (1 source) group home (current) use of anticoagulants; Translations: [group home (current) use of anticoagulants] Episodic Other aftercare (5 sources) Long-term current use of drug therapy; Translations: [Other halfway (current) drug therapy] Episodic Other circulatory disease (19 sources) H/O: cardiovascular disease; Translations: [Personal history of other diseases of the circulatory system] Episodic Other circulatory disease (3 sources) Personal history of other diseases of the circulatory system; Translations: [H/O atrial flutter] Episodic Other circulatory disease (1 source) History of atrial flutter; Translations: [Personal history of other diseases of the circulatory system] 06-17-2023 Episodic Other connective tissue disease (18 sources) Enthesopathy of knee; Translations: [Other bursitis of knee, unspecified knee] Episodic Other connective tissue disease (18 sources) Disorder of soft tissue; Translations: [Other [...] Episodic Other disorders of stomach and duodenum (14 sources) Stenosis of duodenum; Translations: [Stenosis of duodenum] Chronic Other ear and sense organ disorders (1 source) Sensorineural hearing loss; Translations: [Unspecified sensorineural hearing loss] 06-20-2023 Chronic Other ear and sense organ disorders (1 source) Unspecified sensorineural hearing loss; Translations: [Sensorineural hearing loss, unspecified] 06-20-2023 Chronic Other ear and sense organ disorders (1 source) Impacted cerumen, unspecified ear; Translations: [Impacted cerumen] 06-20-2023 Episodic Other gastrointestinal disorders (14 sources) Feces contents abnormal; Translations: [Black stool] Episodic Other gastrointestinal disorders (14 sources) Heartburn; Translations: [HEARTBURN] Episodic Other gastrointestinal disorders (20 sources) Diarrhea; Translations: [Diarrhea, unspecified] Episodic Other gastrointestinal disorders (6 sources) H/O: gastrointestinal disease; Translations: [Personal history of other diseases of the digestive system] Episodic Other hematologic conditions (14 sources) Macrocytosis - no anemia; Translations: [Other specified diseases of blood and blood-forming organs] Chronic Other hematologic conditions (13 sources) Other specified diseases of blood and blood-forming organs; Translations: [Disease of blood AND/OR blood-forming organ] Onset: 9 Chronic Other hereditary and degenerative nervous system conditions (7 sources) Impaired cognition; Translations: [Mild cognitive impairment, so stated] 06-17-2023 Chronic Other hereditary and degenerative nervous system conditions (3 sources) Mild cognitive impairment, so stated; Translations: [Mild cognitive impairment, so stated] Chronic Other injuries and conditions due to [...] upper limbs] Chronic Other nervous system disorders (7 sources) Chronic pain; Translations: [Other chronic pain] Chronic Other non-traumatic joint disorders (2 sources) Pain in right knee; Translations: [Right knee pain] Episodic Other upper respiratory disease (6 sources) [...] [facility] Office Visiton 05-14-2023 Follow-up visit [id number] Annelise Olson 1935 [facility] Provider Department Center 05/14/2023 Gerda-CAMACHO SINGER ALBERT Salguero Family History Problem Relation Age of Onset Coronary artery disease Mother Coronary artery disease Father Family Status - Relation Status Age at Mother Father Level of Service:03240 [place] OFFICE/OUTPATIENT ESTABLISHED LOW MDM 20 MIN Normal [facility] Office Visiton 12-19-2022 Follow-up visit [id number] Annelise Olson 1935 [facility] Provider Department Center 12/19/2022 Angelia6-ELIJAH REYES ALBERT Salguero Family History Problem Relation Age of Onset Coronary artery disease Mother Coronary artery disease Father Family Status - Relation Status Age at Mother Father Level of Service:91236 [place] OFFICE/OUTPATIENT ESTABLISHED MOD MDM 30-39 MIN Reason for Visit and Comments: Follow-up [972084] Normal [facility] Office Visiton 10-31-2022 Follow-up visit [id number] Annelise Olson 1935 [facility] Provider Department Center 10/31/2022 1596[facility]IJAH [facility] Problem Relation Age of Onset Coronary artery disease Mother Coronary artery disease Father Family Status - Relation Status Age at Mother Father Level of Service:28678 [place] OFFICE/OUTPATIENT ESTABLISHED MOD MDM 30-39 MIN Reason for Visit and Comments: Follow-up [042306] - Follow up no issues Normal [facility] Ambulatory Visit Summaryon 0 08-17-2022 Ambulatory Visit Summary ANNELISE OLSON :1935 Visit Date:08/17/2022 Ambulatory Visit Instructions Your Diagnosis 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 Take [id number] and prescription medicines only as told by [...] You d (more content not included)... Normal [facility] Urology Office/Clinic Noteon 08-17-2022 Urology Office/Clinic Note [...] year [facility] [address], [place] [address] [phone] Additional Instructions: 1 year fu Patient Education [...] influenza vir (more content not included)... Normal [facility] Comment on above: Result Comment: Elec tronically Signed By: Conner IRENE MD\.br\Date and Time Signed: 08/17/22 09:23 EDT\.br\Electronically Co-Signed By: Yadi Quijano\.br\Date and Time Co-Signed: 08/17/22 09:22 EDT CBC AUTO DIFFon 08-14-2022 BASO # 0.0 103/ul Normal 0.0-0.1 [facility] Comment on above: Performed By: #### A LT, LIPID, BMP #### [facility] [address] [place] [address] Dr. Kaleb Desir Basophils/100 WBC (Bld) 0.5 % Normal 0.2-2.0 [facility] Comment on above: Performed By: #### A LT, LIPID, BMP #### [facility] [address] [address] [address] Kaleb Desir EO # 0.1 103/ul Normal 0.0-0.7 [facility] Comment on above: Performed By: #### A LT, LIPID, BMP #### [facility] [address] [address] [address] Kaleb Desir Eosinophils/100 WBC (Bld) 1.2 % Normal 0.9-7.0 [facility] Comment on above: Performed By: #### A LT, LIPID, BMP #### [facility] [address] [place] [address] Dr. Kaleb Desir Erythrocyte distribution width (RBC) [Ratio] 12.9 % Normal 11.0-15.0 [facility] Comment on above: Performed By: #### A LT, LIPID, BMP #### [facility] [address] [place] [address] Dr. Kaleb Desir Hematocrit (Bld) [Volume fraction] 38.6 % Critically low 42.0-54.0 [facility] Comment on above: Performed By: #### A LT, LIPID, BMP #### [facility] [address] [place] [address] Dr. Kaleb Desir Hemoglobin (Bld) [Mass/Vol] 13.1 g/dL Critically low 14.0-18.0 [facility] Comment on above: Performed By: #### A LT, LIPID, BMP #### [facility] [address] [place] [address] Dr. Kaleb Desir IG # 0.03 10e3/ul Normal 0.00-0.03 [facility] Comment on above: Performed By: #### A LT, LIPID, BMP #### [facility] [address] [place] [address] Dr. Kaleb Desir IG % 0.3 % Normal 0.0-0.5 [facility] Comment on above: Performed By: #### A LT, LIPID, BMP #### [facility] [address] [place] [address] Dr. Kaleb Desir LYMPH # 0.9 103/ul Critically low 1.2-3.8 [facility] Comment on above: Performed By: #### A LT, LIPID, BMP #### [facility] [address] [place] [address] Dr. Kaleb Desir Lymphocytes/100 WBC (Bld) 10.3 % Critically low 20.5-60.0 [facility] Comment on above: Performed By: #### A LT, LIPID, BMP #### [facility] [address] [place] [address] Dr. Kaleb Desir MANUAL DIFF REQ NO Normal [facility] Comment on above: Performed By: #### A LT, LIPID, BMP #### [facility] [address] [place] [address] Dr. Kaleb Desir MCH (RBC) [Entitic mass] 34.0 pg Normal 25.9-34.0 [facility] Comment on above: Performed By: #### A LT, LIPID, BMP #### [facility] [address] [place] [address] Dr. Kaleb Desir MCHC (RBC) [Mass/Vol] 33.9 g/dL Normal 29.9-35.2 [facility] Comment on above: Performed By: #### A LT, LIPID, BMP #### [facility] [address] [place] [address] Dr. Kaleb Desir MCV (RBC) [Entitic vol] 100.3 fL Critically high 80.0-94.0 [facility] Comment on above: Performed By: #### A LT, LIPID, BMP #### [facility] [address] [place] [address] Dr. Kaleb Desir MONO # 0.8 103/ul Normal 0.3-0.8 [facility] Comment on above: Performed By: #### A LT, LIPID, BMP #### [facility] [address] [place] [address] Dr. Kaleb Desir Monocytes/100 WBC (Bld) 9.2 % Normal 1.7-12.0 [facility] Comment on above: Performed By: #### A LT, LIPID, BMP #### [facility] [address] [place] [address] Dr. Kaleb Desir NEUT # 7.0 103/ul Critically high 1.4-6.5 [facility] Comment on above: Performed By: #### A LT, LIPID, BMP #### [facility] [address] [place] [address] Dr. Kaleb Desir Neutrophils/100 WBC (Bld) 78.5 % Critically high 43.0-75.0 [facility] Comment on above: Performed By: #### A LT, LIPID, BMP #### [facility] [address] [place], [place] [address] Dr. Kaleb Desir Platelet mean volume (Bld) [Entitic vol] 9.0 fL Critically low 9.5-13.5 [facility] Comment on above: Performed By: #### A LT, LIPID, BMP #### [facility] [address] [place], [place] [address] Dr. Kaleb Desir PLT 164 103/ul Normal 150-450 [facility] Comment on above: Performed By: #### A LT, LIPID, BMP #### [facility] [address] [place], [place] [address] Dr. Kaleb Desir RBC 3.85 106/ul Critically low 4.70-6.10 [facility] Comment on above: Performed By: #### A LT, LIPID, BMP #### [facility] [address] [place], [place] [address] Dr. Kaleb Desir WBC 8.9 103/ul Normal 4.0-11.0 [facility] Comment on above: Performed By: #### A LT, LIPID, BMP #### [facility] [address] [place], [place] [address] ABD/PELVIS WO CONon [...] Colt CALABRESE Date: 2022-08-14 03:24 Normal [facility] ER URINE PROFILEon 3 Bilirubin Ql (U) Negative Normal NEGATIVE [facility] Comment on above: Performed By: #### A LT, LIPID, BMP #### [facility] [address] [place] [address] Dr. Kaleb Desir Clarity (U) CLEAR Normal CLEAR [facility] Comment on above: Performed By: #### A LT, LIPID, BMP #### [facility] [address] [place] [address] Dr. Kaleb Desir Color (U) YELLOW Normal YELLOW [facility] Comment on above: Performed By: #### A LT, LIPID, BMP #### [facility] [address] [place] [address] Dr. Kaleb Desir ERUAHD A micrscopic examina tion will be performed if indicated. Normal [facility] Comment on above: Performed By: #### A LT, LIPID, BMP #### [facility] [address] [place] [address] Dr. Kaleb Desir Glucose Ql (U) Negative Normal NEGATIVE [facility] Comment on above: Performed By: #### A LT, LIPID, BMP #### [facility] [address] [place] [address] Dr. Kaleb Desir Hemoglobin Ql (U) TRACE-INTACT Abnormal NEGATIVE [facility] Comment on above: Performed By: #### A LT, LIPID, BMP #### [facility] [address] [address] [address] Kaleb Desir Ketones Ql (U) TRACE Abnormal NEGATIVE [facility] Comment on above: Performed By: #### A LT, LIPID, BMP #### [facility] [address] [address] [address] Kaleb Desir LEUKOCYTES Negative Normal NEGATIVE [facility] Comment on above: Performed By: #### A LT, LIPID, BMP #### [facility] [address] [address] [address] Kaleb Desir Nitrite Ql (U) Negative Normal NEGATIVE [facility] Comment on above: Performed By: #### A LT, LIPID, BMP #### [facility] [address] [address] [address] Kaleb Desir pH (U) 5.5 [pH] Normal 5-9 [facility] Comment on above: Performed By: #### A LT, LIPID, BMP #### [facility] [address] [address] [address] Kaleb Desir SPEC GRAVITY >=1.030 Abnormal 1.005-<=1.0 25 [facility] Comment on above: Performed By: #### A LT, LIPID, BMP #### [facility] [address] [address] [address] Kaleb Desir UA PROTEIN Negative Normal NEGATIVE/ TRACE [facility] Comment on above: Performed By: #### A LT, LIPID, BMP #### [facility] [address] [address] [address] Kaleb Desir UR MICRO IND NOT INDICATED Normal [facility] Comment on above: Performed By: #### A LT, LIPID, BMP #### [facility] [address] [address] [address] Kaleb Desir Urobilinogen Qn (U) 0.2 {Silver'U}/dL Normal 0.2 - 1.0 [facility] Comment on above: Performed By: #### A LT, LIPID, BMP #### [facility] [address] [place] [address] Dr. Kaleb Desir LIPASEon 08-14-2022 Lipase [Catalytic activity/Vol] 91.0 U/L Normal 73.0-393.0 [facility] Comment on above: Performed By: #### C MP, LIPA #### [facility] [address] [place] [address] Dr. Kaleb Desir PROF 14(COMP METB)on 023 Albumin [Mass/Vol] 3.2 g/dL Critically low 3.4-5.0 [facility] Comment on above: Performed By: #### A LT, LIPID, BMP #### [facility] [address] [place] [address] Dr. Kaleb Desir Albumin/Globulin [Mass ratio] 1.0 {ratio} Normal [facility] Comment on above: Performed By: #### A LT, LIPID, BMP #### [facility] [address] [place] [address] Dr. Kaleb Desir ALP [Catalytic activity/Vol] 78 U/L Normal 46-116 [facility] Comment on above: Performed By: #### A LT, LIPID, BMP #### [facility] [address] [place] [address] Dr. Kaleb Desir ALT [Catalytic activity/Vol] 20 U/L Normal 16-63 [facility] Comment on above: Performed By: #### A LT, LIPID, BMP #### [facility] [address] [place] [address] Dr. Kaleb Desir Anion gap [Moles/Vol] 12.6 mmol/L Normal [facility] Comment on above: Performed By: #### A LT, LIPID, BMP #### [facility] [address] [place] [address] Dr. Kaleb Desir AST [Catalytic activity/Vol] 21 U/L Normal 15-37 [facility] Comment on above: Performed By: #### A LT, LIPID, BMP #### [facility] [address] [place] [address] Dr. Kaleb Desir Bilirubin [Mass/Vol] 0.8 mg/dL Normal 0.2-1.0 [facility] Comment on above: Performed By: #### A LT, LIPID, BMP #### [facility] [address] [place] [address] Dr. Kaleb Desir Calcium [Mass/Vol] 8.5 mg/dL Normal 8.5-10.1 [facility] Comment on above: Performed By: #### A LT, LIPID, BMP #### [facility] [address] [place] [address] Dr. Kaleb Desir Chloride [Moles/Vol] 105 mmol/L Normal 98-107 [facility] Comment on above: Performed By: #### A LT, LIPID, BMP #### [facility] [address] [place] [address] Dr. Kaleb Desir CO2 [Moles/Vol] 24.4 mmol/L Normal 21.0-32.0 [facility] Comment on above: Performed By: #### A LT, LIPID, BMP #### [facility] [address] [place] [address] Dr. Kaleb Desir Creatinine [Mass/Vol] 1.13 mg/dL Normal 0.70-1.30 [facility] Comment on above: Performed By: #### A LT, LIPID, BMP #### [facility] [address] [place] [address] Dr. Kaleb Desir EGFR-AF UZBEK >60 Normal >=60 [facility] Comment on above: Performed By: #### A LT, LIPID, BMP #### [facility] [address] [place] [address] Dr. Kaleb Desir EGFR-NON AF UZBEK >60 Normal >=60 [facility] Comment on above: Performed By: #### A LT, LIPID, BMP #### [facility] [address] [place] [address] Dr. Kaleb Desir Globulin (S) [Mass/Vol] 3.1 g/dL Normal [facility] Comment on above: Performed By: #### A LT, LIPID, BMP #### [facility] [address] [address] [address] Kaleb Desir Glucose [Mass/Vol] 129 mg/dL Critically high 74-106 [facility] Comment on above: Performed By: #### A LT, LIPID, BMP #### [facility] [address] [place] [address] Dr. Kaleb Desir Potassium [Moles/Vol] 4.0 mmol/L Normal 3.5-5.1 [facility] Comment on above: Performed By: #### A LT, LIPID, BMP #### [facility] [address] [place] [address] Dr. Kaleb Desir Protein [Mass/Vol] 6.3 g/dL Critically low 6.4-8.2 [facility] Comment on above: Performed By: #### A LT, LIPID, BMP #### [facility] [address] [place] [address] Dr. Kaleb Desir Sodium [Moles/Vol] 138 mmol/L Normal 136-145 [facility] Comment on above: Performed By: #### A LT, LIPID, BMP #### [facility] [address] [place] [address] Dr. Kaleb Desir Urea nitrogen [Mass/Vol] 15.0 mg/dL Normal 7.0-18.0 [facility] Comment on above: Performed By: #### A LT, LIPID, BMP #### [facility] [address] [place] [address] Dr. Kaleb Desir Urea nitrogen/Creatini ne [Mass ratio] 13.3 mg/mg Normal [facility] Comment on above: Performed By: #### A LT, LIPID, BMP #### [facility] [address] [place] [address] CSPINE WO CONon [...] KAILASH BARNES Date: 2022-06-11 21:51 Normal [facility] CT HEAD WO CONon 06-11-2022 CT [...] help better delineate. Electronically authenticated by: EDUARDO FOLEYING Date: 2022-06-11 21:57 Normal [facility] STOOL CULTUREon 02-20-2022 Campylobacter Culture Final report Normal [facility] Comment on above: Performed By: #### C XSTOOL #### [facility] [address] [address] [address] Kaleb Desir E coli Shiga Toxin EIA Negative Normal Negative [facility] Comment on above: Performed By: #### C XSTOOL #### [facility] [address] [address] [address] Kaleb Desir Result 1 Comment Normal [facility] Comment on above: Result Comment: No S almonella or Shigella recovered. Performed By: #### C XSTOOL #### [facility] [address] [address] [address] Kaleb Desir Result Comment: No C ampylobacter species isolated. Salmonella/Shigel la Screen Final report Normal [facility] Comment on above: Performed By: #### C XSTOOL #### [facility] [address] [address] [address] Kaleb Desir C. DIFF PCRon 02-16-2022 C. DIFFICILE PCR Negative Normal NEGATIVE [facility] Comment on above: Performed By: #### C DIFPOC #### [facility] [address] [address] [address] Kaleb Desir CBC AUTO DIFFon 02-16-2022 BASO # 0.0 103/ul Normal 0.0-0.1 [facility] Comment on above: Performed By: #### C BC #### [facility] [address] [address] [address] Kaleb Desir Basophils/100 WBC (Bld) 0.6 % Normal 0.2-2.0 [facility] Comment on above: Performed By: #### C BC #### [facility] [address] [place] [address] Dr. Kaleb Desir EO # 0.3 103/ul Normal 0.0-0.7 [facility] Comment on above: Performed By: #### C BC #### [facility] [address] [place] [address] Dr. Kaleb Desir Eosinophils/100 WBC (Bld) 4.0 % Normal 0.9-7.0 [facility] Comment on above: Performed By: #### C BC #### [facility] [address] [place] [address] Dr. Kaleb Desir Erythrocyte distribution width (RBC) [Ratio] 12.4 % Normal 11.0-15.0 [facility] Comment on above: Performed By: #### C BC #### [facility] [address] [place] [address] Dr. Kaleb Desir Hematocrit (Bld) [Volume fraction] 40.5 % Critically low 42.0-54.0 [facility] Comment on above: Performed By: #### C BC #### [facility] [address] [place] [address] Dr. Kaleb Desir Hemoglobin (Bld) [Mass/Vol] 13.7 g/dL Critically low 14.0-18.0 [facility] Comment on above: Performed By: #### C BC #### [facility] [address] [place] [address] Dr. Kaleb Desir IG # 0.01 10e3/ul Normal 0.00-0.03 [facility] Comment on above: Performed By: #### C BC #### [facility] [address] [place] [address] Dr. Kaleb Desir IG % 0.1 % Normal 0.0-0.5 [facility] Comment on above: Performed By: #### C BC #### [facility] [address] [place] [address] Dr. Kaleb Desir LYMPH # 1.7 103/ul Normal 1.2-3.8 [facility] Comment on above: Performed By: #### C BC #### [facility] [address] [address] [address] Kaleb Desir Lymphocytes/100 WBC (Bld) 25.5 % Normal 20.5-60.0 [facility] Comment on above: Performed By: #### C BC #### [facility] [address] [address] [address] Kaleb Desir MANUAL DIFF REQ NO Normal [facility] Comment on above: Performed By: #### C BC #### [facility] [address] [address] [address] Kaleb Desir MCH (RBC) [Entitic mass] 34.4 pg Critically high 25.9-34.0 [facility] Comment on above: Performed By: #### C BC #### [facility] [address] [place] [address] Dr. Kaleb Desir MCHC (RBC) [Mass/Vol] 33.8 g/dL Normal 29.9-35.2 [facility] Comment on above: Performed By: #### C BC #### [facility] [address] [place] [address] Dr. Kaleb Desir MCV (RBC) [Entitic vol] 101.8 fL Critically high 80.0-94.0 [facility] Comment on above: Performed By: #### C BC #### [facility] [address] [place] [address] Dr. Kaleb Desir MONO # 0.9 103/ul Critically high 0.3-0.8 [facility] Comment on above: Performed By: #### C BC #### [facility] [address] [place] [address] Dr. Kaleb Desir Monocytes/100 WBC (Bld) 12.4 % Critically high 1.7-12.0 [facility] Comment on above: Performed By: #### C BC #### [facility] [address] [place] [address] Dr. Kaleb Desir NEUT # 3.9 103/ul Normal 1.4-6.5 [facility] Comment on above: Performed By: #### C BC #### [facility] [address] [address] [address] Kaleb Desir Neutrophils/100 WBC (Bld) 57.4 % Normal 43.0-75.0 [facility] Comment on above: Performed By: #### C BC #### [facility] [address] [address] [address] Kaleb Desir Platelet mean volume (Bld) [Entitic vol] 9.0 fL Critically low 9.5-13.5 [facility] Comment on above: Performed By: #### C BC #### [facility] [address] [address] [address] Kaleb Desir PLT 181 103/ul Normal 150-450 [facility] Comment on above: Performed By: #### C BC #### [facility] [address] [place] [address] Dr. Kaleb Desir RBC 3.98 106/ul Critically low 4.70-6.10 [facility] Comment on above: Performed By: #### C BC #### [facility] [address] [address] [address] Kaleb Desir WBC 6.8 103/ul Normal 4.0-11.0 [facility] Comment on above: Performed By: #### C BC #### [facility] [address] [address] [address] Kaleb Desir PROF CHEM 8 (BAS METB)on Anion gap [Moles/Vol] 11.0 mmol/L Normal [facility] Comment on above: Performed By: #### A LT, LIPID, BMP #### [facility] [address] [place] [address] Dr. Kaleb Desir Calcium [Mass/Vol] 8.9 mg/dL Normal 8.5-10.1 [facility] Comment on above: Performed By: #### A LT, LIPID, BMP #### [facility] [address] [place] [address] Dr. Kaleb Desir Chloride [Moles/Vol] 105 mmol/L Normal 98-107 [facility] Comment on above: Performed By: #### A LT, LIPID, BMP #### [facility] [address] [address] [address] Kaleb Desir CO2 [Moles/Vol] 26.6 mmol/L Normal 21.0-32.0 [facility] Comment on above: Performed By: #### A LT, LIPID, BMP #### [facility] [address] [address] [address] Kaleb Desir Creatinine [Mass/Vol] 1.02 mg/dL Normal 0.70-1.30 [facility] Comment on above: Performed By: #### A LT, LIPID, BMP #### [facility] [address] [address] [address] Kaleb Desir EGFR-AF UZBEK >60 Normal >=60 [facility] Comment on above: Performed By: #### A LT, LIPID, BMP #### [facility] [address] [place] [address] Dr. Kaleb Desir EGFR-NON AF UZBEK >60 Normal >=60 [facility] Comment on above: Performed By: #### A LT, LIPID, BMP #### [facility] [address] [address] [address] Kaleb Desir Glucose [Mass/Vol] 102 mg/dL Normal 74-106 [facility] Comment on above: Performed By: #### A LT, LIPID, BMP #### [facility] [address] [address] [address] Kaleb Desir Potassium [Moles/Vol] 3.6 mmol/L Normal 3.5-5.1 [facility] Comment on above: Performed By: #### A LT, LIPID, BMP #### [facility] [address] [address] [address] Kaleb Desir Sodium [Moles/Vol] 139 mmol/L Normal 136-145 [facility] Comment on above: Performed By: #### A LT, LIPID, BMP #### [facility] [address] [address] [address] Kaleb Desir Urea nitrogen [Mass/Vol] 14.0 mg/dL Normal 7.0-18.0 [facility] Comment on above: Performed By: #### A LT, LIPID, BMP #### [facility] [address] [place] [address] Dr. Kaleb Desir Urea nitrogen/Creatini ne [Mass ratio] 13.7 mg/mg Normal [facility] Comment on above: Performed By: #### A LT, LIPID, BMP #### [facility] [address] [place] [address] Dr. Kaleb Desir CBC AUTO DIFFon 01-19-2022 BASO # 0.1 103/ul Normal 0.0-0.1 [facility] Comment on above: Performed By: #### A LT, LIPID, BMP #### [facility] [address] [place] [address] Dr. Kaleb Desir Basophils/100 WBC (Bld) 0.8 % Normal 0.2-2.0 [facility] Comment on above: Performed By: #### A LT, LIPID, BMP #### [facility] [address] [place] [address] Dr. Kaleb Desir EO # 0.4 103/ul Normal 0.0-0.7 [facility] Comment on above: Performed By: #### A LT, LIPID, BMP #### [facility] [address] [place] [address] Dr. Kaleb Desir Eosinophils/100 WBC (Bld) 5.8 % Normal 0.9-7.0 [facility] Comment on above: Performed By: #### A LT, LIPID, BMP #### [facility] [address] [place] [address] Dr. Kaleb Desir Erythrocyte distribution width (RBC) [Ratio] 12.2 % Normal 11.0-15.0 [facility] Comment on above: Performed By: #### A LT, LIPID, BMP #### [facility] [address] [place] [address] Dr. Kaleb Desir Hematocrit (Bld) [Volume fraction] 41.8 % Critically low 42.0-54.0 [facility] Comment on above: Performed By: #### A LT, LIPID, BMP #### [facility] [address] [place] [address] Dr. Kaleb Desir Hemoglobin (Bld) [Mass/Vol] 14.0 g/dL Normal 14.0-18.0 [facility] Comment on above: Performed By: #### A LT, LIPID, BMP #### [facility] [address] [place] [address] Dr. Kaleb Desir IG # 0.01 10e3/ul Normal 0.00-0.03 [facility] Comment on above: Performed By: #### A LT, LIPID, BMP #### [facility] [address] [place] [address] Dr. Kaleb Desir IG % 0.2 % Normal 0.0-0.5 [facility] Comment on above: Performed By: #### A LT, LIPID, BMP #### [facility] [address] [place] [address] Dr. Kaleb Desir LYMPH # 1.9 103/ul Normal 1.2-3.8 [facility] Comment on above: Performed By: #### A LT, LIPID, BMP #### [facility] [address] [place] [address] Dr. Kaleb Desir Lymphocytes/100 WBC (Bld) 31.7 % Normal 20.5-60.0 [facility] Comment on above: Performed By: #### A LT, LIPID, BMP #### [facility] [address] [place] [address] Dr. Kaleb Desir MANUAL DIFF REQ NO Normal [facility] Comment on above: Performed By: #### A LT, LIPID, BMP #### [facility] [address] [place] [address] Dr. Kaleb Desir MCH (RBC) [Entitic mass] 34.1 pg Critically high 25.9-34.0 [facility] Comment on above: Performed By: #### A LT, LIPID, BMP #### [facility] [address] [place] [address] Dr. Kaleb Desir MCHC (RBC) [Mass/Vol] 33.5 g/dL Normal 29.9-35.2 [facility] Comment on above: Performed By: #### A LT, LIPID, BMP #### [facility] [address] [place] [address] Dr. Kaleb Desir MCV (RBC) [Entitic vol] 101.7 fL Critically high 80.0-94.0 [facility] Comment on above: Performed By: #### A LT, LIPID, BMP #### [facility] [address] [place] [address] Dr. Kaleb Desir MONO # 0.8 103/ul Normal 0.3-0.8 [facility] Comment on above: Performed By: #### A LT, LIPID, BMP #### [facility] [address] [place] [address] Dr. Kaleb Desir Monocytes/100 WBC (Bld) 13.8 % Critically high 1.7-12.0 [facility] Comment on above: Performed By: #### A LT, LIPID, BMP #### [facility] [address] [place] [address] Dr. Kaleb Desir NEUT # 2.9 103/ul Normal 1.4-6.5 [facility] Comment on above: Performed By: #### A LT, LIPID, BMP #### [facility] [address] [place] [address] Dr. Kaleb Desir Neutrophils/100 WBC (Bld) 47.7 % Normal 43.0-75.0 [facility] Comment on above: Performed By: #### A LT, LIPID, BMP #### [facility] [address] [place] [address] Dr. Kaleb Desir Platelet mean volume (Bld) [Entitic vol] 8.9 fL Critically low 9.5-13.5 [facility] Comment on above: Performed By: #### A LT, LIPID, BMP #### [facility] [address] [place] [address] Dr. Kaleb Desir PLT 174 103/ul Normal 150-450 [facility] Comment on above: Performed By: #### A LT, LIPID, BMP #### [facility] [address] [place] [address] Dr. Kaleb Desir RBC 4.11 106/ul Critically low 4.70-6.10 [facility] Comment on above: Performed By: #### A LT, LIPID, BMP #### [facility] [address] [address] [address] Kaleb Desir WBC 6.0 103/ul Normal 4.0-11.0 [facility] Comment on above: Performed By: #### A LT, LIPID, BMP #### [facility] [address] [address] [address] Kaleb Desir LIPID PROFILEon 01-19-2022 CHOL-HDL RATIO NORM SEE BELOW Normal [facility] Comment on above: Result Comment: 3.3 - 4.4 LOW RISK 4.4 - 7.1 AVERAGE RISK 7.1 - 11.0 MODERATE RISK >11.0 HIGH RISK Performed By: #### A LT, LIPID, BMP #### [facility] [address] [address] [address] Kaleb Desir Cholesterol [Mass/Vol] 137 mg/dL Normal <=200 [facility] Comment on above: Performed By: #### A LT, LIPID, BMP #### [facility] [address] [address] [address] Kaleb Desir Cholesterol in HDL [Mass/Vol] 58 mg/dL Normal 40-60 [facility] Comment on above: Performed By: #### A LT, LIPID, BMP #### [facility] [address] [address] [address] Kaleb Desir Cholesterol in LDL [Mass/Vol] 68.6 mg/dL Normal [facility] Comment on above: Performed By: #### A LT, LIPID, BMP #### [facility] [address] [address] [address] Kaleb Desir Cholesterol.total /Cholesterol in HDL [Mass ratio] 2.4 {ratio} Normal [facility] Comment on above: Performed By: #### A LT, LIPID, BMP #### [facility] [address] [address] [address] Kaleb Desir HDL NORMAL > or = 60 mg/dl - LO W CARDIOVASCULAR RISK <40 mg/dl - HIGH CARDIOVASCULAR RISK Normal [facility] Comment on above: Performed By: #### A LT, LIPID, BMP #### [facility] [address] [place] [address] Dr. Kaleb Desir LDL CALC NORMAL SEE BELOW Normal [facility] Comment on above: Result Comment: <100 mg/dl OPTIMAL 100 - 129 mg/dl NEAR OR ABOVE OPTIMAL 130 - 159 mg/dl BORDERLINE HIGH 160 - 189 mg/dl HIGH >190 mg/dl VERY HIGH Performed By: #### A LT, LIPID, BMP #### [facility] [address] [address] [address] Kaleb Desir Triglyceride [Mass/Vol] 52 mg/dL Normal <=150 [facility] Comment on above: Performed By: #### A LT, LIPID, BMP #### [facility] [address] [place] [address] Dr. Kaleb Desir VLDL CALC 10.4 mg/dL Normal [facility] Comment on above: Performed By: #### A LT, LIPID, BMP #### [facility] [address] [place] [address] Dr. Kaleb Desir PROF CHEM 8 (BAS METB)on Anion gap [Moles/Vol] 13.1 mmol/L Normal [facility] Comment on above: Performed By: #### A LT, LIPID, BMP #### [facility] [address] [place] [address] Dr. Kaleb Desir Calcium [Mass/Vol] 8.9 mg/dL Normal 8.5-10.1 [facility] Comment on above: Performed By: #### A LT, LIPID, BMP #### [facility] [address] [place] [address] Dr. Kaleb Desir Chloride [Moles/Vol] 105 mmol/L Normal 98-107 [facility] Comment on above: Performed By: #### A LT, LIPID, BMP #### [facility] [address] [place] [address] Dr. Kaleb eDsir CO2 [Moles/Vol] 25.0 mmol/L Normal 21.0-32.0 [facility] Comment on above: Performed By: #### A LT, LIPID, BMP #### [facility] [address] [address] [address] Kaleb Desir Creatinine [Mass/Vol] 1.17 mg/dL Normal 0.70-1.30 [facility] Comment on above: Performed By: #### A LT, LIPID, BMP #### [facility] [address] [address] [address] Kaleb Desir EGFR-AF UZBEK >60 Normal >=60 [facility] Comment on above: Performed By: #### A LT, LIPID, BMP #### [facility] [address] [address] [address] Kaleb Desir EGFR-NON AF UZBEK 59 mL/min/1.73m2 Critically low >=60 [facility] Comment on above: Performed By: #### A LT, LIPID, BMP #### [facility] [address] [address] [address] Kaleb Desir Glucose [Mass/Vol] 103 mg/dL Normal 74-106 [facility] Comment on above: Performed By: #### A LT, LIPID, BMP #### [facility] [address] [address] [address] Kaleb Desir Potassium [Moles/Vol] 4.1 mmol/L Normal 3.5-5.1 [facility] Comment on above: Performed By: #### A LT, LIPID, BMP #### [facility] [address] [place] [address] Dr. Kaleb Desir Sodium [Moles/Vol] 139 mmol/L Normal 136-145 [facility] Comment on above: Performed By: #### A LT, LIPID, BMP #### [facility] [address] [address] [address] Kaleb Desir Urea nitrogen [Mass/Vol] 18.0 mg/dL Normal 7.0-18.0 [facility] Comment on above: Performed By: #### A LT, LIPID, BMP #### [facility] [address] [address] [address] Kaleb Desir Urea nitrogen/Creatini ne [Mass ratio] 15.4 mg/mg Normal [facility] Comment on above: Performed By: #### A LT, LIPID, BMP #### [facility] [address] [place], [place] [address] Dr. Kaleb Desir [facility] 01-19-2022 ALT [Catalytic activity/Vol] 21 U/L Normal 16-63 [facility] Comment on above: Performed By: #### A LT, LIPID, BMP #### [facility] [address] [place], [place] [address] Dr. Kaleb Desir Cardiovascular Lab Reporton 06-13-2020 Cardiovascular Lab Report [facility] Patient Name: Annelise Olson MR #: [id number] [facility] Physician: Camacho Singer MD Service Date: 06/13/2020 Department of Birthdate: 1935 Medicine Room #: CC Division of Cardiology Adult Cardiovascular Services [place] [address] Cardiovascular Laboratory Report ATRIAL FLUTTER ABLATION AND [...] the sternum on the left using the [employer] tool. The loop recorder was then injected [...] complicati (more content not included)... Normal [facility] Vital Signs Date Time Vital Sign Value Performing Clinician Facility 06-20-2023 10:42-0500 Body height 172.72 cm [facility] 06-20-2023 10:42-0500 Body mass index (BMI) [Ratio] 22 kg/m2 [facility] 06-20-2023 10:42-0500 Body weight 65.77 kg [facility] 06-20-2023 10:42-0500 Diastolic blood pressure 66 mm[Hg] [facility] 06-20-2023 10:42-0500 Heart rate 103 /min [facility] 06-20-2023 10:42-0500 Respiratory rate 20 /min [facility] 06-20-2023 10:42-0500 Systolic blood pressure 102 mm[Hg] [facility] 05-09-2023 11:00-0500 Body height 172.72 cm [employer] Other [facility] 05-09-2023 11:00-0500 Body mass index (BMI) [Ratio] 21.98 kg/m2 [employer] Other [facility] [employer] Other 05-09-2023 11:00-0500 Body weight 65.59 kg [employer] Other [facility] [employer] Other 05-09-2023 11:00-0500 Body weight 65.58 kg [facility] 05-09-2023 11:00-0500 Diastolic blood pressure 66 mm[Hg] [facility] [employer] Other [facility] 05-09-2023 11:00-0500 Respiratory rate 12 /min [facility] [employer] Other [facility] [employer] Other 05-09-2023 11:00-0500 Systolic blood pressure 118 mm[Hg] Miguel Ball Other [facility] 10-26-2022 10:30-0400 Body height 172.72 cm Miguel Ball Other [facility] [employer] Other 10-26-2022 10:30-0400 Body mass index (BMI) [Ratio] 21.89 kg/m2 Miguel Ball Other [facility] [employer] Other 10-26-2022 10:30-0400 Body weight 65.32 kg Miguel Ball Other [facility] [employer] Other 10-26-2022 10:30-0400 Diastolic blood pressure 60 mm[Hg] Miguel Ball Other [employer] Other 10-26-2022 10:30-0400 Respiratory rate 12 /min Miguel Ball Other [employer] Other 10-26-2022 10:30-0400 Systolic blood pressure 104 mm[Hg] Miguel Ball Other [employer] Other 08-17-2022 08:47-0400 Blood Pressure Location Conner IRENE [facility] 08-17-2022 08:47-0400 Diastolic blood pressure 76 mm[Hg] Conner IRENE [facility] 08-17-2022 08:47-0400 Heart rate 80 /min Conner IRENE [facility] 08-17-2022 08:47-0400 Respiratory rate 16 /min Conner IRENE [facility] 08-17-2022 08:47-0400 Systolic blood pressure 128 mm[Hg] Conner IRENE [facility] 08-14-2021 09:20-0400 Blood Pressure Location Conner IRENE [facility] 08-14-2021 09:20-0400 Diastolic blood pressure 76 mm[Hg] Conner IRENE [facility] 08-14-2021 09:20-0400 Heart rate 61 /min Conner IRENE [facility] 08-14-2021 09:20-0400 Systolic blood pressure 160 mm[Hg] Conner IRENE [facility] Encounters Encounter Date Encounter Type Care Provider Facility Start: 08-19-2023 ambulatory Conner Garciai ty:[facility] Jorge L Start: 07-04-2023 End: 07-04-2023 ambulatory ANUM FOLEY Not Available Start: 06-20-2023 End: 06-20-2023 ambulatory [facility] Work Phone: Start: 06-20-2023 End: 06-20-2023 Patient encounter procedure [facility] Work Phone: Start: 06-04-2023 End: 06-04-2023 ambulatory [place] Not Available Start: 05-29-2023 End: 05-29-2023 ambulatory Miguel Ball Other [employer] Other Start: 05-29-2023 Telephone encounter Miguel Ball [facility] Start: 05-27-2023 End: 05-27-2023 ambulatory Miguel Ball Other [employer] Other Start: 05-27-2023 Telephone encounter Miguel Ball [facility] Start: 05-15-2023 End: 05-15-2023 ambulatory Miguel Ball Other [employer] Other Start: 05-15-2023 Telephone encounter Miguel Ball [facility] Start: 05-15-2023 Patient encounter procedure [facility]- Start: 05-14-2023 End: 05-14-2023 ambulatory [facility] Start: 05-13-2023 End: 05-13-2023 ambulatory Miguel Ball Other [employer] Other Start: 05-13-2023 Telephone encounter Miguel Ball [facility] Start: 05-09-2023 End: 05-09-2023 ambulatory Miguel Ball Other [employer] Other Start: 05-09-2023 Office outpatient vi sit 25 minutes Miguel Ball [facility] Start: 05-09-2023 End: 05-09-2023 Patient encounter procedure [facility] Work Phone: Start: 01-29-2023 End: 01-29-2023 ambulatory Miguel Ball Other [employer] Other Start: 01-29-2023 Telephone encounter Miguel Ball [facility] Start: 01-21-2023 End: 01-21-2023 ambulatory Miguel Ball Other [employer] Other Start: 01-21-2023 Telephone encounter Miguel Ball [facility] Start: 12-31-2022 End: 12-31-2022 ambulatory Miguel Guevara Other [employer] Other Start: 12-31-2022 Telephone encounter Miguel BONILLA Jakob Guevara [facility] Start: 12-29-2022 End: 12-29-2022 ambulatory Miguel Guevara Other [employer] Other Start: 12-29-2022 Telephone encounter Miguel Guevara FP Jakob Guevara [facility] Start: 12-26-2022 End: 12-26-2022 ambulatory Miguel Guevara Other [employer] Other Start: 12-26-2022 Telephone encounter Miguel BONILLA Jakob Guevara [facility] Start: 12-19-2022 End: 12-19-2022 ambulatory [facility] Start: 10-31-2022 End: 10-31-2022 ambulatory [facility] Start: 10-26-2022 End: 10-26-2022 ambulatory Miguel Guevara Other [employer] Other Start: 10-26-2022 Office outpatient vi sit 25 minutes Miguel Guevara [facility] Start: 08-17-2022 End: 08-18-2022 ambulatory Conner IRENE Facility:[facility] Start: 08-17-2022 End: 08-17-2022 Patient encounter procedure Conner IRENE [facility] [place] Start: 08-14-2022 End: 08-14-[address] MIGUEL GUEVARA Facility:[facility] Start: 06-11-2022 End: 06-12-2022 ambulatory KAILASH BARNES Facility:[facility] Start: 05-31-2022 ambulatory CAMACHO [facility] Start: 02-16-2022 End: 02-17-[address] MIGUEL GUEVARA Facility:[facility] Start: 01-19-2022 End: 01-20-[address] MIGUEL GUEVARA Facility:[facility] Start: 01-16-2022 Adult health examination Miguel Guevara Other [employer] Other Start: 01-16-2022 Encounter for genera l adult medical examination without abnormal findings Miguel Guevara Other [employer] Other Start: 08-14-2021 End: 08-14-2021 Patient encounter procedure Conner IRENE [facility] Procedures Date Procedure Procedure Detail Performing Clinician Start: 09-01-2020 Transurethral prostatectomy Conner HOUSTON Start: 05-31-2020 Cystoscopy Conner PRINCESS Start: 05-11-2015 Screening for malignant neoplasm of prostate Miguel Guevara Other Start: 05-10-2015 Screening for malignant neoplasm of colon Miguel Guevara Other Start: 05-06-2011 Colonoscopy Conner IRENE Start: 05-06-2011 Esophagogastroduodenoscopy Conner JENY Bar Start: 05-06-2011 Total replacement of right hip joint Conner IRENE Start: 05-06-1997 Femoral herniorrhaphy - bilateral Thomas k PRINCESS Start: 05-06-1994 Coronary artery bypass graft Conner WINTERS Depression screening Temo Guevara Other Plan of Treatment Date Care Activity Detail Author Start: 06-20-2023 Patient referral [facility] Work Phone: Patient referral [facility] Work Phone: Immunizations Immunization Date Immunization Notes Care Provider Adrienne graham 01-28-2023 influenza virus vaccine, unspecified formulation [facility] 01-28-2023 influenza, high dose seasonal, preservative-free Miguel Guevara Other [facility] [employer] Other 02-10-2022 COVID-19 Vaccine Pfi zer - Documentation Purposes Only Miguel Guevara Other [facility] 01-05-2022 influenza virus vaccine, split virus (incl. purified surface antigen) Miguel Guevara Other [facility] [employer] Other 01-05-2022 influenza virus vaccine, unspecified formulation [facility] 02-15-2021 influenza virus vaccine, unspecified formulation Conner Funny Or Die [facility] 01-17-2021 influenza virus vaccine, split virus (incl. purified surface antigen) Miguel Guevara Other [facility] [employer] Other 01-17-2021 influenza virus vaccine, unspecified formulation [facility] 06-15-2020 SARS-CoV-2 (COVID-19 ) Ad26 vaccine, recombinant Conner IRENE [facility] 05-12-2020 SARS-CoV-2 (COVID-19 ) Ad26 vaccine, recombinant Conner IRENE [facility] 01-02-2020 influenza virus vaccine, split virus (incl. purified surface antigen) Miguel Guevara Other [facility] [employer] Other 01-02-2020 influenza virus vaccine, unspecified formulation [facility] 02-12-2018 influenza virus vaccine, split virus (incl. purified surface antigen) Miguel Guevara Other [facility] [employer] Other 02-12-2018 influenza virus vaccine, unspecified formulation [facility] 04-03-2017 pneumococcal conjuga te vaccine, 13 valent Miguel Guevara Other [facility] 03-22-2017 influenza virus vaccine, split virus (incl. purified surface antigen) Miguel Guevara Other [facility] [employer] Other 03-22-2017 influenza virus vaccine, unspecified formulation [facility] 02-08-2016 diphtheria, tetanus toxoids and acellular pertussis vaccine, unspecified formulation Miguel Guevara Other [facility] 01-03-2016 influenza virus vaccine, split virus (incl. purified surface antigen) Miguel Guevara Other [facility] [employer] Other 01-03-2016 influenza virus vaccine, unspecified formulation [facility] 05-10-2015 pneumococcal conjuga te vaccine, 13 valent Miguel Guevara Other [facility] 01-13-2014 tetanus and diphther ia toxoids, adsorbed, preservative free, for adult use (5 Lf of tetanus toxoid and 2 Lf of diphtheria toxoid) Miguel Ismael Other [facility] 03-11-2013 tetanus and diphther ia toxoids, adsorbed, preservative free, for adult use (5 Lf of tetanus toxoid and 2 Lf of diphtheria toxoid) Miguel Ismael Other [facility] 01-26-2013 tetanus and diphther ia toxoids, adsorbed, preservative free, for adult use (5 Lf of tetanus toxoid and 2 Lf of diphtheria toxoid) Miguel Ismael Other [facility] 01-21-2013 tetanus and diphther ia toxoids, adsorbed, preservative free, for adult use (5 Lf of tetanus toxoid and 2 Lf of diphtheria toxoid) Miguel Ismael Other [facility] 04-12-2010 pneumococcal polysaccharide vaccine, 23 valent Miguel Ismael Other [facility] Payers Date Payer Category Payer Unknown [id number] 1958 Medicare [id number] 1958 Unknown [id number] 1935 Unknown [id number] 2.16.84 [id number] 1935 Unknown [id number] 2.16.84 [id number] 1935 Unknown [id number] 2.16.84 [id number] 1936 Unknown [id number] 2.16.84 [id number] 1936 Unknown [id number] 2.16.8 [id number] 1936 Unknown [id number] 2.16.8 [id number] 1936 Unknown [id number] 2.16.84 [id number] 1936 Unknown [id number] 2.16.84 [id number] 1936 Unknown [id number] 2.16.84 [id number] 1936 Unknown [id number] 2.16.84 [id number] Social History Date Type Detail Facility Start: 08-14-2021 End: 06-17-2023 Tobacco smoking status Never smoked tobacco (finding) [facility] Tobacco smoking status Never [facility] Sex Assigned At Male [facility] Start: 1935 Sex Assigned At Male [facility] Functional Status Date Assessment Result Facility 08-17-2022 Functional Status Yes [facility] Clinical Notes 08-14-2021 to 06-20-2023 Note Date & Type Note Facility 06-20-2023 Hospital Discharge instructions Ambulatory OrdersReferral to Audiology Time Frame: 06/20/23, Location: None SelectedReferral to Neurology Time Frame: 06/20/23, Location: None Selected [facility] Work Phone: 06-20-2023 Evaluation note Diagnosis Onset Date Mild cognitive impairment ac emmie Primary hypertension acute SNHL (sensorineural hearing loss) acute Stage 3a chronic kidney disease acute Cerumen impaction noneactive [facility] Work Phone: [phone] Evaluation note* Encounter Date Diagnosis Assessment Notes Treatment Notes Treatment Clinical Notes May, Chronic HFrEF (heart failure with reduced ejection fraction) (ICD-10 - I50.22) Echocardiogram: 12/2022 LVEF 45%, RV dilated, mild MR, [facility] Other 01-09-2024 NoteUT Cardiology Consult Note Reason [...] Financial Resource Strain: No (more content not included)...[facility]01-08-2024 Evaluation note* Encounter Date Diagnosis Assessment Notes Treatment Notes Treatment Clinical Notes May, Mild cognitive impairment (ICD-10 - G31.84) [facility] Other 01-04-2024 Evaluation note* Encounter Date Diagnosis [...] May, Fatigue, unspecified type (ICD-10 - R53.83) [facility] Other 09-18-2023 Evaluation note* Encounter Date Diagnosis Assessment Notes Treatment Notes Treatment Clinical Notes Jan, Essential hypertension (ICD-10 - I10) [facility] Other 08-28-2023 Evaluation note* Encounter Date Diagnosis Assessment Notes Treatment Notes Treatment Clinical Notes Dec, ASHD (arteriosclerotic heart disease) (ICD-10 - I25.10) NM Imaging: LVEF 40% [facility] Other 08-26-2023 Evaluation note* Encounter Date Diagnosis Assessment Notes Treatment Notes Treatment Clinical Notes Dec, ASHD (arteriosclerotic heart disease) (ICD-10 - I25.10) NM Imaging: LVEF 40% [facility] Other 08-23-2023 Evaluation note* Encounter Date Diagnosis Assessment Notes Treatment Notes Treatment Clinical Notes Dec, Lumbar spondylosis (ICD-10 - M47.816) [facility] Other 08-16-2023 NoteUT Cardiology Consult Note Reason [...] 1 tablet every day by oral route. rosalioiri (more content not included)...[facility] 10-31-2022 NoteReview of Systems All other systems reviewed and are negative.[facility] 10-31-2022 NoteUT Cardiology Consult Note Reason [...] Multiple LOOP checks have called episodes of Collins joyner but when I scrutinized him closely they [...] Cardioversion was performed on 04/07/[address] Kosinski who converted the flutter to sinus rhythm [...] capsule Take 1 capsul (more content not included)...[facility]06-23-2023 Evaluation note* Encounter Date Diagnosis Assessment [...] prevent thromboembolic events. No bleeding complications Oct, group home (current) use of opiate analgesic (ICD-10 - [...] report is being monitored every 90 days. [facility] Other 04-14-2023 Hospital Discharge instructions Patient Education [...] urethra. Follow these instructions at home: Take kala-ptb-fvskatz and prescription medicines only as told by [...] 04/22/2006 Document Revised: 03/17/2019 Document Reviewed: 05/27/2017 [employer] Patient Education 2019 [employer]. Follow Up Care 08/14/2021 10:16:11 With:PRINCESS GARCIA, Conner Simpson, URL Address: [facility] [address] , [place] [address]- [phone] When:Within 1 Year(s) Comments:1 year fu [facility] 04-11-2022 Hospital Discharge instructions Patient Education 08/14/2021 [...] reconstructed. Follow these instructions at home: Take unwe-jak-jgcfbzr and prescription medicines only as told by [...] 05/18/2016 Document Revised: 12/03/2018 Document Reviewed: 12/03/2018 [employer] Patient Education 2020 [employer]. 08/14/2021 10:10:57 Benign Prostatic Hyperplasia Benign Prostatic [...] urethra. Follow these instructions at home: Take guta-qvm-lkbezsc and prescription medicines only as told by [...] 04/22/2006 Document Revised: 03/17/2019 Document Reviewed: 05/27/2017 [employer] Patient Education 2020 [employer]. Follow Up Care 02/06/2021 12:37:54 With:Conner IRENE MD, URL Address: [facility] [address] , [place] [address]- [phone] When:08/14/2022 Comments:f/u in 1 year [facility] evaluation + Plan note Future Appointments Appointment Date:08/17/2022 08:45:00 AM Scheduled Provider:Conner IRENE MD Location:[facility] Appointment Type:URO Office Visit [facility] evaluation + Plan note Future Appointments Appointment Date:08/19/2023 09:45:00 AM Scheduled Provider:Conner IRENE MD Location:[facility] Appointment Type:URO [facility] noteNo InformationNortArideas Other History general Narrative - Reported* Type Description Date [...] Medical History Left leg swelling Medical History group home (current) use of opiat e analgesic Surgical History TURP, WITH CYSTOSCOPY Surgical History ABLATION, ARRHYTHMOG ENIC FOCUS, FOR ATRIAL FLUTTER, IN CARDIAC CATHETERIZATION Surgical History CABG Surgical History B/L HERNIORRPHAPHY Surgical History COLONSCOPY Surgical History EGD Hospitalization History SEE SURGICAL [facility] Other Hishbds general Narrative - Reported* Type Description Date [...] History Arthritis of knee, right Medical History group home (current) use of opiat e analgesic Medical History HFrEF Medical History Ischemic cardiomyopathy Surgical History TURP, WITH CYSTOSCOPY Surgical History ABLATION, ARRHYTHMOG ENIC FOCUS, FOR ATRIAL FLUTTER, IN CARDIAC CATHETERIZATION Surgical History CABG Surgical History B/L HERNIORRPHAPHY Surgical History COLONSCOPY Surgical History EGD Hospitalization History SEE SURGICAL HX [facility] Other Hospital course Narrative No data available for this section [facility] progress note No data available for this section [facility] Summary Purpose Family History No Family History Records FoundNo Family History Records FoundNo Family History Records FoundNo Family History Records FoundNo Family History Records Found Advance Directives No Advanced Directives Records Found Advance Directive Response Recorded Date/ Time Advance Directives No June 10:30am Chief Complaint and Reason for Visit Chief Complaint 3 Month Follow Up Check Ears Reason for Visit Mild cognitive impai rment Primary hypertension SNHL (sensorineural hearing loss) Stage 3a chronic kidney disease Cerumen impaction Additional Source Comments (unrecognized sect ion and content) No Status Records FoundNo Status Records FoundNo Status Records FoundNo Status Records FoundNo Status Records Found INFORMATION SOURCE (unrecogn ized section and content) DATE CREATED AUTHOR 06/10/[address] [facility] DATE CREATED AUTHOR AUTHOR'S ORGANIZ ATION 08/16/2022 [facility] DATE CREATED AUTHOR AUTHOR'S ORGANIZ ATION 08/18/2022 [facility] DATE CREATED AUTHOR AUTHOR'S ORGANIZ ATION 05/15/2023 [facility] DATE CREATED AUTHOR AUTHOR'S ORGANIZ ATION 07/06/2023 [facility] [employer] Patient Care team informatio n (unrecognized section and content) Team Status: Active Member Role Status Dates Miguel Guevara DO Primary Care Provider Active Team Status: Inactive Member Role Status Dates Miguel Guevara DO Attending Provider Active Sta rt: May 09, 2023 End: May 09, 2023 Team Status: Active Member Role Status Dates Provider Conversion Attending Provider Active St art: May 15, 2023 Team Status: Inactive Member Role Status Dates Miguel Guevraa DO Primary Care Provide r, Attending Provider Active Start: June 20, 2023 End: June 20, 2023 REASON FOR VISIT (unrecogniz ed section and content) 3 month Follow upRefillNo In formationNo InformationNo InformationRefillrefillXray/lab results3 month Follow up, MoCA?MRINo InformationCT resultsHearing TestLab results Goals (unrecognized section and content) Goals may be documented in a n alternate section FOR RECORDS PERTAINING TO PATIENTS WHO ARE [...] BE BASED ON THE PRIMARY CLINICAL RECORDS. [facility] [employer] [facility]. provides no warranty or guarantee of the accuracy or completeness of information in this document.
--- NOTE | 2023-07-10 11:50 | XR_ITS ---
The [address] [address] Patient Name: ANNELISE GARCIA MRN: [id number] date: 1935 Sex: M Assigned Patient Location: ER Current Patient Location: ED.MAIN Accession/Order Number: [id number] Exam Date: 07/10/2023 12:04 Report Date: 07/10/2023 12:23 At the request of: SIOBHAN ALAMO Procedure: XR chest 2V EXAM: XR chest 2V HISTORY: cp COMPARISON: None. TECHNIQUE: Upright PA and lateral chest x-ray FINDINGS: The heart is not enlarged and the vasculature is not distended. No acute infiltrate, effusion or pneumothorax is identified. Mild flattening of the hemidiaphragms suggest COPD. A partially calcified small nodule is seen in the right paratracheal region, of doubtful clinical significance. Multiple sternal wire sutures are present with mediastinal clips. Degenerative changes are seen in the spine. XR/XR chest 2V IMPRESSION: No acute infiltrate or evidence of cardiac decompensation. Mild chronic changes are present. The partially calcified nodule in the right paratracheal region is probably not significant, although comparison with a previous study is recommended to verify stability of these findings. Electronically authenticated by: JULIO MCKEON Date: 07/10/2023 12:23
--- NOTE | 2023-07-10 11:50 | ECG_ITS ---
The [facility] Test Date: 2023-07-10 Pat Name: ANNELISE GARCIA Department: Room: - Gender: Male Waste [employer]or: : 1935 Requested By: YARELIS LALA Order Number: [id number] Reading MD: YARELIS LALA Measurements Intervals Leland Rate: 63 P: 90 IA: 324 QRS: 92 QRSD: 142 T: 23 QT: 488 QTc: 496 Interpretive Statements 1100 Sinus rhythm 1102 Sinus arrhythmia 2231 First degree AV block 2450 Right bundle branch block w/ secondary ST/T wave changes 9150 abnormal ECG Electronically Signed On 07-10-2023 22:55:46 EST by YARELIS LALA
--- NOTE | 2023-07-10 12:03 | ED.GENADUL1 ---
HPI - General Adult General Chief complaint: Chest Pain Stated complaint: CHEST PAIN Time Seen by Provider: 07/10/23 11:48 Source: patient Mode of arrival: walk-in Limitations: no limitations History of Present Illness HPI narrative: Patient is a 88-year-old male who is presenting to the ER today with chief complaint of midsternal chest heaviness/achiness that lasted a few minutes at home today. Patient was driving home with his after running errands. Patient walked into the house and was sitting in the kitchen. Patient had Onset of heaviness vague weakness across the midsternal with no radiation into his neck, jaw, back. Patient has had nitro that he has been caring around for 30 years, he took 1 nitro that he had at home, he has never taken a nitro previously. Patient stated it did help his pain within 1 to 2 minutes t after taking the medication before they got in the car to drive to the ER. [place] thought they could get here faster by her driving and then calling an ambulance. Patient has had open heart surgery approximately 30 years ago by vp product marketing at [facility]. Dr. Lopez is patient's vp product marketing at this time. Patient is very latter-day about taking his medication, doing his appointments, doing cardiac rehab still. Patient did have a cardiac stress test and echocardiogram in the last 5 years. Patient currently is pain-free. Patient looks well. Patient is supposed to be meeting his son today to help sustain and cut wood for a house that he is building. No recent heavy lifting, twisting turning. Pt is at bedside, good source of history. No recent traveling. No recent falls. All systems are negative except as noted/marked. All systems reviewed and otherwise negative. Nurses note and vital signs reviewed and patient is not hypoxic. General: The patient appears well and in no apparent distress. Patient is resting comfortably on cart. Patient is not toxic, lethargic, or listless Skin: Warm, dry, no pallor noted. There is no rash noted. No petechiae, purpura. Head: Normocephalic, atraumatic Eye: Normal conjunctiva, no drainage, EOMI. PERRL Ears, Nose, Mouth, and Throat: oral mucosa is moist. Nares patent. Mouth without vesicles. Cardiovascular: Regular Rate and Rhythm, no murmur, gallop, rub; patient has no reproducible tenderness to palpation. Respiratory: Patient is in no distress, no accessory muscle use, lungs are clear to auscultation, no wheezing, rales or rhonchi Back: non-tender, no CVA tenderness bilaterally to percussion. No CT LS midline pain GI: no tenderness to palpation, no masses appreciated. No rebound, guarding, or rigidity noted. No distention Musculoskeletal: Patient has full range of motion of all of the extremities, no motor, sensory, or focal neurological deficits Neurological: A&O x4, normal speech Psychiatric: Cooperative Related Data Home Medications Medication Instructions Recorded Confirmed atorvastatin 40 mg tablet 40 mg PO Q24H 07/10/23 07/10/23 dapagliflozin propanediol 10 mg 10 mg PO Q24H 07/10/23 07/10/23 tablet (Farxiga) furosemide 40 mg tablet 40 mg PO Q24H 07/10/23 07/10/23 hyoscyamine sulfate 0.125 mg tablet 0.125 mg PO Q6H 07/10/23 07/10/23 lisinopril 10 mg tablet 10 mg PO Q24H 07/10/23 07/10/23 nitroglycerin 0.4 mg sublingual 0.4 mg sublingual Q5M 07/10/23 07/10/23 tablet omeprazole 40 mg capsule,delayed 40 mg PO Q24H 07/10/23 07/10/23 release Allergies Allergy/AdvReac Type Severity Reaction Status Date / Time unknown Allergy Mild Uncoded 07/10/23 12:10 [facility] Social History Smoking status: Former smoker Exam Constitutional Vital Signs, click to edit/add: Last Vital Signs Temp 98.0 F 07/10/23 11:23 Pulse 52 L 07/10/23 14:30 Resp 18 07/10/23 14:30 BP 149/60 H 07/10/23 14:30 Pulse Ox 99 07/10/23 14:30 O2 Del Method Room Air 07/10/23 11:23 Course Vital Signs Vital signs: Vital Signs Temperature 98.0 F 07/10/23 11:23 Pulse Rate 69 07/10/23 11:23 Respiratory Rate 18 07/10/23 11:23 Blood Pressure 160/82 H 07/10/23 11:23 Pulse Oximetry 98 07/10/23 11:23 Oxygen Delivery Method Room Air 07/10/23 11:23 Temperature 98.0 F 07/10/23 11:23 Pulse Rate 52 L 07/10/23 14:30 Respiratory Rate 18 07/10/23 14:30 Blood Pressure 149/60 H 07/10/23 14:30 Pulse Oximetry 99 07/10/23 14:30 Oxygen Delivery Method Room Air 07/10/23 11:23 Medical Decision Making MDM Narrative Medical decision making narrative: Patient has been asymptomatic in the Emergency Room. I have spoken to Dr. Juarez approx 145PM about this patient's case. He agrees the patient may be discharged at 2 sets of troponins are negative, and patient has had no pain the entire time in the Emergency Room. Chest x-ray, lab work, to troponins are negative. Education on taking aspirin and nitroglycerin was done at bedside. They will get further recommendations on taking aspirin and nitroglycerin from the vp product marketing, they have an appointment that is scheduled in 2 days. Patient's son who is the fire alarm mechanic for [place] was at bedside as well. Multiple questions were answered by patient, and son. Patient feels comfortable going home. Patient's been asymptomatic the entire time in the Emergency Room. No questions at discharge. Lab Data Lab results reviewed: Yes I reviewed the patient's lab results Labs: Lab Results 07/10/23 07/10/23 Range/Units 11:45 12:59 WBC 6.3 (4.0-11.0) 10^3/uL RBC 4.43 L (4.70-6.10) 10^6/uL Hgb 15.3 (14.0-18.0) g/dL Hct 45.9 (42.0-54.0) % MCV 103.6 H (80.0-94.0) fL MCH 34.5 H (25.9-34.0) pg MCHC 33.3 (29.9-35.2) g/dL RDW 12.5 (11.0-15.0) % Plt Count 157 (150-450) 10^3/uL MPV 9.8 (9.5-13.5) fL Neut % (Auto) 65.2 (43.0-75.0) % Lymph % (Auto) 22.1 (20.5-60.0) % Bay % (Auto) 8.1 (1.7-12.0) % Eos % (Auto) 3.8 (0.9-7.0) % Baso % (Auto) 0.5 (0.2-2.0) % Neut # (Auto) 4.1 (1.4-6.5) 10^3/uL Lymph # (Auto) 1.4 (1.2-3.8) 10^3/uL Bay # (Auto) 0.5 (0.3-0.8) 10^3/uL Eos # (Auto) 0.2 (0.0-0.7) 10^3/uL Baso # (Auto) 0.0 (0.0-0.1) 10^3/uL Abs Immat Gran (auto) 0.02 (0.00-0.03) 10^3/uL Imm/Tot Granulo (auto) 0.3 (0.0-0.5) % Sodium 138 (136-145) mmol/L Potassium 3.8 (3.5-5.1) mmol/L Chloride 104 (98-107) mmol/L Carbon Dioxide 25.5 (21.0-32.0) mmol/L Anion Gap 12.3 BUN 18.0 (7.0-18.0) mg/dL Creatinine 1.31 H (0.70-1.30) mg/dL Est GFR ( Amer) >60 (>=60) Est GFR (Non-Af Amer) 52 L (>=60) BUN/Creatinine Ratio 13.7 Glucose 164 H (74-106) mg/dL Calcium 8.8 (8.5-10.1) mg/dL Total Bilirubin 1.1 H (0.2-1.0) mg/dL AST 25 (15-37) U/L ALT 15 L (16-63) U/L Alkaline Phosphatase 91 (46-116) U/L Troponin I High Sens 16.7 36.4 (4.0-76.1) pg/mL NT-Pro-B Natriuret Pep 436.0 (<=1800.0) pg/mL Total Protein 7.3 (6.4-8.2) g/dL Albumin 3.4 (3.4-5.0) g/dL Globulin 3.9 g/dL Albumin/Globulin Ratio 0.9 ECG Data Attestation: I personally reviewed and interpreted this ECG as follows: (EKG interpretation. Baseline normal sinus rhythm at 63 beats a minute. Normal axis deviation. Patient has T wave inversion through the inferior leads, also along anterior leads as well. Right bundle branch block noted. EKG reading first-degree AV block at 324.) Interpretation: In comparing today's EKG to old EKG initially on December 26, 2022, patient has some similar changes but compared to August 22, 2020, patient does have T wave inversion similar to today along with right bundle branch block and prolonged WA interval. No acute changes on today's EKG. Discharge Plan Discharge Chief Complaint: Chest Pain Clinical Impression: Chest pain Patient Disposition: Home, Self-Care Time of Disposition Decision: 14:11 Condition: Good Prescriptions / Home Meds: No Action atorvastatin 40 mg tablet 40 mg PO Q24H dapagliflozin propanediol [Farxiga] 10 mg tablet 10 mg PO Q24H furosemide 40 mg tablet 40 mg PO Q24H hyoscyamine sulfate 0.125 mg tablet 0.125 mg PO Q6H lisinopril 10 mg tablet 10 mg PO Q24H omeprazole 40 mg capsule,delayed release(DR/EC) 40 mg PO Q24H nitroglycerin 0.4 mg tablet, sublingual 0.4 mg sublingual Q5M Instructions: Chest Pain (ED) Additional Instructions: Increase fluids at home. You have had 2 sets of cardiac troponin blood test that are negative. I have spoken to Dr. Juarez about this patient's case. Patient may be discharged and follow-up with cardiology as an outpatient if he is starting to have intermittent chest aches, heaviness or pains. Patient has been asymptomatic in the ER. Patient will be discharged. No questions at discharge. Patient is excited to leave, he is on to go help his son continue to help build his house with cutting wood and staining. Referrals: Miguel Guevara DO [Primary Care Provider] - 1 week Discharge Date/Time: 07/10/23 14:38 Stand Alone Forms: Portal Instructions
[2023-07-10 12:08] LABS: Anion Gap 12.3; Basophils Percent Auto 0.5 % (0.2-2.0); Eosinophils Absolute Auto 0.2 10^3/uL (0.0-0.7); Eosinophils Percent Auto 3.8 % (0.9-7.0); Hematocrit 45.9 % (42.0-54.0); Hemoglobin 15.3 g/dL (14.0-18.0); Immature Granulocytes Abs Auto 0.02 10^3/uL (0.00-0.03); Immature Granulocytes Pct Auto 0.3 % (0.0-0.5); Lymphocytes Absolute Auto 1.4 10^3/uL (1.2-3.8); Lymphocytes Percent Auto 22.1 % (20.5-60.0); Mean Corpuscular HGB Conc 33.3 g/dL (29.9-35.2); Mean Corpuscular Hemoglobin 34.5 pg (25.9-34.0); Mean Corpuscular Volume 103.6 fL (80.0-94.0); Mean Platelet Volume 9.8 fL (9.5-13.5); Monocytes Absolute Auto 0.5 10^3/uL (0.3-0.8); Monocytes Percent Auto 8.1 % (1.7-12.0); Neutrophils Absolute Auto 4.1 10^3/uL (1.4-6.5); Neutrophils Percent Auto 65.2 % (43.0-75.0); Platelet Count 157 10^3/uL (150-450); Red Blood Count 4.43 10^6/uL (4.70-6.10); Red Cell Distribution Width 12.5 % (11.0-15.0); White Blood Count 6.3 10^3/uL (4.0-11.0)
[2023-07-10] MEDS: ASPIRIN 81 MG TAB.CHEW 162 MG PO (12:13)
[2023-07-10 12:15] LABS: Alanine Aminotransferase 15 U/L (16-63); Albumin Globulin Ratio 0.9; Albumin Level 3.4 g/dL (3.4-5.0); Alkaline Phosphatase 91 U/L (46-116); Aspartate Amino Transferase 25 U/L (15-37); BUN Creatinine Ratio 13.7; Bilirubin Total 1.1 mg/dL (0.2-1.0); Calcium 8.8 mg/dL (8.5-10.1); Carbon Dioxide 25.5 mmol/L (21.0-32.0); Chloride 104 mmol/L (98-107); Estimated GFR (African America >60 (>=60); Estimated GFR (Non-African Ame 52 (>=60); Globulin 3.9 g/dL; Glucose 164 mg/dL (74-106); Potassium 3.8 mmol/L (3.5-5.1); Sodium 138 mmol/L (136-145); Total Protein 7.3 g/dL (6.4-8.2); Troponin I High Sensitivity 16.7 pg/mL (4.0-76.1)
[2023-07-10] MEDS: 0.9 % SODIUM CHLORIDE 500 ML IV (12:56)
[2023-07-10 13:24] LABS: Troponin I High Sensitivity 36.4 pg/mL (4.0-76.1)
== END 2023-07-10 14:38 | disposition home or self-care (01) ==
PROVIDERS: Emergency Provider Emergency Medicine; PCP Internal Medicine
DX: R07.9 Chest pain, unspecified (principal); Z87.891 Personal history of nicotine dependence; Z79.899 Other long term (current) drug therapy
CPT/HCPCS: 36415; 71046; 80053; 83880; 84484; 85025; 93005; 99285

== ENCOUNTER 2023-09-02 11:27 | Outpatient (OUT) | payer MEDICARE, SELFPAY | END 2023-09-02 11:28 | disposition home or self-care (01) | LOC: LAB 11:27 | PROVIDERS: PCP Internal Medicine; Visit Provider Psychiatry & Neurology Neurology | DX: G31.84 Mild cognitive impairment of uncertain or unknown etiology (principal) | CPT/HCPCS: 36415; 82746 ==

== ENCOUNTER 2023-12-13 08:57 | Outpatient (OUT) | payer MEDICARE, SELFPAY ==
--- NOTE | 2023-12-13 09:00 | CA_ITS ---
Patient Name: ANNELISE GARCIA MR#: [id number] : 1935 Exam Date: 12/13/2023 Ordering Doctor: DR ALEX PRIETO M.D. ECHOCARDIOGRAM REPORT PROCEDURE: CA ECHO DOPPLER COMPLETE INDICATIONS: Heart failure with reduced ejection fraction, CABGx1, [place] COMPARISON: None. DESCRIPTION: COMPLETE ECHOCARDIOGRAM Real-time transthoracic echocardiography with 2D, M-mode, spectral and color flow Doppler performed. QUALITY: Technical quality was good. LEFT VENTRICLE: Normal chamber size. Normal left ventricular wall thickness. LV EF: Lower limits of normal left ventricular ejection fraction, (50-55%). Hypokinesis of the basal inferior wall DIASTOLIC: Normal diastolic function. ATRIAL SEPTUM: Visually appears intact. LEFT ATRIUM: Normal chamber size. RIGHT ATRIUM: Normal chamber size. RIGHT VENTRICLE:Mild dilatation. Decreased right ventricular systolic function. TRICUSPID VALVE: Normal mobility and thickness. No stenosis with trivial regurgitation. Unable to assess right-sided pressures due to lack of measurable tricuspid regugitation. MITRAL VALVE: Normal mobility and thickness. No evidence of mitral valve stenosis. There is no mitral annular calcification. Mild mitral regurgitation. AORTIC VALVE: Normal trileaflet appearance. Mildly calcified aortic valve. Doppler velocity suggests no significant aortic valve stenosis. Mild to moderate aortic regurgitation. AORTIC ROOT: Normal diameter and appearance. Ascending aorta is normal in size. PULMONIC VALVE: Normal thickness and mobility. No stenosis. No regurgitation. PERICARDIUM: No evidence of pericardial effusion. IVC: Collapses with inspirations. CONCLUSION: 1. Global left ventricular systolic function is low normal limits; estimated ejection fraction is 50 to 55% 2. Regional wall motion abnormality seen 3. The right ventricle is mild to moderately dilated with reduced systolic function 4. The left atrium is normal in size 5. Mild mitral regurgitation 6. Mild to moderate aortic valve regurgitation Adult Echocardiography Procedure Report Left Ventricle LVEDD (3.7 - 5.6 cm): 4.83 cm LVESD (2.2 - 4.0 cm): 3.62 cm LVIVS thickness (0.6 - 1.2 cm): 0.97 cm LVPW thickness (0.5 - 1.0 cm): 0.90 cm e': 0.11 m/s E - e': 3.66 LVOT Max Gradient: 1.25 mm[Hg] LVOT Area (cm2): 0.56 m/s Peak Velocity (LVOT): 0.56 m/s Mean Velocity (LVOT): 0.36 m/s LVOT Diameter 2.27 cm Left Atrium LA Volume Index (2D A2C): 27.80 ml/m2 Left Atrium Systolic Dimension: 3.98 cm Mitral Valve MV E to A Ratio: 0.62 Mitral Valve A-Wave Peak Velocity: 0.62 m/s Mitral Valve E-Wave Peak Velocity: 0.39 m/s Right Ventricle Aorta AO Root Diam: 2.95 cm Ascending Ao Diam: 2.82 cm Aortic Valve AoV Area (Peak Pietro): 1.60 cm2, 1.60 cm2 AoV Area (VTI): 1.56 cm2, 1.56 cm2 Peak Velocity(Antegrade Flow): 1.41 m/s, 1.40 m/s Peak Gradient(Antegrade Flow): 8.01 mm[Hg], 7.80 mm[Hg] Mean Velocity(Antegrade Flow): 0.95 m/s, 0.88 m/s Mean Gradient(Antegrade Flow): 4.12 mm[Hg], 3.59 mm[Hg] Velocity Time Integral: 31.04 cm, 29.20 cm Tricuspid Valve Pulmonic Valve Mean Gradient: 4.42 mm[Hg] Mean Velocity: 0.96 m/s Peak Velocity: 1.55 m/s, 1.45 m/s Peak Gradient: 9.65 mm[Hg], 8.36 mm[Hg] Right Atrium Right Atrium Systolic Pressure: 51.71 ml, 51.71 ml Dictated by: Zeke Birmingham M.D. on 12/16/2023 at 12:10 Approved by: Zeke Birmingham M.D. on 12/16/2023 at 12:22
--- OUTSIDE RECORDS SUMMARY | 2023-12-13 09:04 | XMS_ITS | CCD ---
Author Organization [facility] CliniSyvt Care Team Providers Care Mini Shifter Name Role Phone MIGUEL GUEVARA Primary Care Physician [phone] KAILASH BARNES Consulting Unavailable MEAGAN, GEOVANY Admitting Unavailable GEOVANY RHODES Attending Unavailable ISMEAL, DR RIVERA Primary Care Unavailable ARELI, EDUARDO Consulting Unavailable JENARO PAGE Consulting Unavailable ISMAEL, DR RIVERA Attending Unavailable BALL, DR RIVERA Admitting Unavailable BALL, DR RIVERA Primary Care Unavailable BALL, DR RIVERA Consulting Unavailable BALL, DR RIVERA Consulting Unavailable BALL, DR RIVERA Attending Unavailable BALL, DR RIVERA Admitting Unavailable BALL, DR RIVERA Primary Care Unavailable ISMAEL, DR RIVERA Primary Care Unavailable HAY ., DR ALVAREZ Admitting Unavailable HAY ., DR ALVAREZ Consulting Unavailable HAY ., DR ALVAREZ Attending Unavailable CALABRESE, ALYCIA Consulting Unavailable Miguel Guevara Unavailable HEATHER OQUENDO Attending Unavailable HILL, HAWK Vanegas Referring Unavailable HILL, HAWK Vanegas Attending Unavailable HILL, HAWK Vanegas Referring Unavailable BROWN, ANUM Naranjo Attending Unavailable HILL, HAWK Vanegas Attending Unavailable BROWN, ANUM Naranjo Attending Unavailable BROWN, ANUM Naranjo Attending Unavailable BROWN, ANUM Naranjo Attending Unavailable BROWN, ANUM Naranjo Attending Unavailable SOPHIA HAMILTON Attending Unavailable MIGUEL GUEVARA Referring Unavailable FATEMEH KELLY Attending Unavailable BROWN, ANUM Naranjo Attending Unavailable BROWN, ANUM Naranjo Attending Unavailable BROWN, ANUM Naranjo Attending Unavailable BROWN, ANUM Naranjo Attending Unavailable BROWN, ANUM Naranjo Attending Unavailable KIZZY, SILVERIO Referring Unavailable KIZZY, SILVERIO Referring Unavailable KIZZY, SILVERIO Referring Unavailable KIZZY, SILVERIO Referring Unavailable KIZZY, SILVERIO Referring Unavailable KIZZY, SILVERIO Referring Unavailable KIZZY, SILVERIO Referring Unavailable KIZZY, SILVERIO Referring Unavailable KIZZY, SILVERIO Referring Unavailable CAMACHO SINGER Referring Unavailable CADE, CAMACHO Referring Unavailable CAMACHO SINGER Attending Unavailable CAMACHO SINGER Referring Unavailable ELIJAH REYES Attending Unavailable MOUKARBEL, ALEX Attending Unavailable CHARITO GREY Attending Unavailable KIZZY, SILVERIO Referring Unavailable KIZZY, SILVERIO Referring Unavailable KIZZY, SILVERIO Referring Unavailable KIZZY, SILVERIO Referring Unavailable KIZZY, SILVERIO Referring Unavailable KIZZY, SILVERIO Referring Unavailable Allergies Allergy Classification Reported Allergen(s) Allergy Type Date of Onset Reaction(s) Facility (18 sources) Naproxen; Translations: [naproxen] Drug Allergy 4 Unknown (qualifier value) [facility] (1 source) Naproxen Drug Allergy 7 [facility] Rep[facility] (6 sources) patient allergy list reviewed by nurse or physicia Propensity to adverse reactions 9 Comment:Done [facility] Other Medications Current Medications Medication Drug Class(es) Dates Sig (Normalized) Sig (Original) apixaban 5 mg oral tablet (3 sources) Factor Xa Inhibitor Start: 05-12-2020 take 1 mg by mouth twice daily Eliquis 5 mg oral tablet mg tab(s), Oral, BID, Refills(s) 0 Start Date: 05/12/20 Status: Ordered aspirin 81 mg delayed release oral tablet (17 sources) Platelet Aggregation Inhibitor, Nonsteroidal Anti-inflammatory Drug Start: 06-17-2023 take 81 mg by mouth once daily Aspirin Active 81 MG PO Daily June 17, 2023 1:00am take 1 tablet by snow th every twenty-four hours Aspirin 81 81 MG 1 tablet Orally Once a day Active take 1 tablet by mouth once nika y Aspirin 81 81 MG 1 tablet Orally Once a day Active atorvastatin 40 mg oral tablet (20 sources) HMG-CoA Reductase Inhibitor Start: 05-12-2020 take 40 mg by mouth once daily Atorvastatin Active 40 MG PO Daily June 17, 2023 1:00am cetirizine hydrochloride 10 mg oral capsule (20 sources) Histamine-1 Receptor Antagonist Start: 06-17-2023 take 1 capsule by mouth once daily Cetirizine (Zyrtec) 10 mg capsule Active 10 MG PO Daily June 17, 2023 1:00am Start: 05-13-2020 Zyrtec Daily, Refills(s) 0 Start Date: 05/13/20 Status: Ordered take 1 capsule by mo [facility] every twenty-four hours ZyrTEC Allergy 10 MG 1 capsule Orally Once a day Active furosemide 40 mg oral tablet (20 sources) Loop Diuretic Start: 05-12-2020 take 40 mg by mouth once daily Furosemide Active 40 MG PO Daily June 17, 2023 1:00am lisinopril 10 mg oral tablet (20 sources) Angiotensin Converting Enzyme Inhibitor Start: 06-17-2023 take 10 mg by mouth once daily Lisinopril Active 10 MG PO Daily June 17, 2023 1:00am Start: 06-09-2022 take 1 tablet by snow every twenty-four hours Lisinopril 10 MG 1 tablet Orally Once a day Jun, Active Start: 05-12-2020 take 1 mg by mouth once daily lisinopril 5 mg Tab mg tab(s), Oral, Daily, Refills(s) 0 Start Date: 05/12/20 Status: Ordered Ernie Red (3 sources) Start: 05-31-2020 Ernie Red Ernie Red, Oral, Daily Start Date: 05/31/20 Status: Ordered 24 hr mirabegron 25 mg extended release oral tablet (2 sources) beta3-Adrenergic Agonist Start: 08-17-2022 take 1 tablet by mouth once daily Myrbetriq 25 mg oral tablet, extended release 25 mg = 1 tab(s), Oral, Daily, # 30 tab(s), Refills(s) 11, [facility]: [id number], 170, cm, 08/17/22 8:49:00 EDT, Height/Length Dosing, 66, kg, 08/17/22 8:49:00 EDT, Weight Dosing Start Date: 08/17/22 Status: Ordered nitroglycerin 0.4 mg sublingual tablet (16 sources) Nitrate Vasodilator Start: 10-17-2023 Nitroglycerin (Nitrostat) 0.4 mg tablet, sublingual Active 0.4 MG SUBLINGUAL every 5 to 15 minutes October 17, 2023 11:00am FreeTextSig: as directed Sublingual PRN chest pain; Note: Source Status: Taking; Provider: Ismael Dixon Start: 06-17-2023 End: 10-17-2023 Nitroglycerin (Nitrostat) 0. 4 mg tablet, sublingual Discontinued MG SUBLINGUAL June 17, 2023 1:00am October 17, 2023 11:01am FreeTextSig: as directed Sublingual PRN chest pain; Note: Source Status: Taking; Provider: Ismael Dixon Start: 01-02-2023 Nitrostat 0.4 MG as directed Sublingual PRN chest pain Dec, Active Start: 05-13-2020 nitroglycerin Refills(s) 0 Start Date: 05/13/20 Status: Ordered omeprazole 40 mg delayed release oral capsule (19 sources) Proton Pump Inhibitor Start: 05-12-2020 take 40 mg by mouth once daily before breakfast Omeprazole Active 40 MG PO Daily June 17, 2023 1:00am ON AN EMPTY STOMACH 1/2 HOUR BEFORE BREAKFAST omeprazole 40 mg Cap-DR (1 source) Start: 05-12-2020 take 1 mg by mouth once daily omeprazole 40 mg Cap-DR mg cap(s), Oral, Daily, Refills(s) 0 Start Date: 05/12/20 Status: Ordered Zicam Sinus Relief (3 sources) Start: 05-13-2020 Zicam Sinus Relief BID, Refill(s) 0 Start Date: 05/13/20 Status: Ordered tamsulosin hydrochloride 0.4 mg oral capsule (17 sources) alpha-Adrenergic Sissy Start: 06-17-2023 take 1 capsule by mouth once daily Tamsulosin Active 1 CAP PO Daily June 17, 2023 1:00am FreeTextSi capsule Orally Once a day; Note: Source Status: Taking; Provider: Ismael Rivera ( ) take 1 capsule by mo [facility] every twenty-four hours Tamsulosin HCl 0.4 MG 1 capsule Orally Once a day Active traMADol hydrochloride 50 mg oral tablet (20 sources) Opioid Agonist Start: 06-17-2023 take 1 tablet by mouth every eight hours as needed for pain Tramadol Active MG PO June 17, 2023 1:00am FreeTextSi tablet Orally every 8 hours PRN severe pain; Note: Source Status: Continue; Provider: Ismael Dixon Start: 12-26-2022 take 1 tablet by [facility] every eight hours as needed for pain [...] Typical atrial flutter; Translations: [Typical atrial flutter] Onset: 2 05-12-2020 Chronic Cardiac dysrhythmias (2 sources) Palpitations; Translations: [Palpitations] Onset: 4 Episodic Chronic kidney disease (12 sources) Chronic kidney disease stage 3A ; Translations: [Stage 3a chronic kidney disease] 06-17-2023 Chronic Complication of device; implant or graft (2 sources) Atherosclerosis of coronary artery bypass graft(s), unspecified, with other forms of angina pectoris; Translations: [Atherosclerosis of coronary artery bypass graft(s), unspecified, with other forms of angina pectoris] Onset: 4 Chronic Congestive heart failure; nonhypertensive (10 sources) Heart failure, unspecified; Translations: [Chronic systolic heart failure] Onset: 3 Chronic Coronary atherosclerosis and other heart disease (20 sources) Coronary arteriosclerosis; Translations: [Atherosclerotic heart disease of kiana coronary artery without angina pectoris] Onset: 2 05-12-2020 Chronic Coronary atherosclerosis and other heart disease (2 sources) Presence of aortocoronary bypass graft; Translations: [Presence of aortocoronary bypass graft] Onset: 4 Episodic Disorders of lipid metabolism (20 sources) Familial [...] sources) Essential hypertension; Translations: [Essential (primary) hypertension] Onset: 2 05-12-2020 Chronic Gastroduodenal ulcer (except hemorrhage) (14 sources) Duodenal ulcer without hemorrhage, without perforation AND without obstruction; Translations: [Duodenal ulcer, unspecified as acute or chronic, without hemorrhage or perforation and without obstruction] Chronic Gastroduodenal ulcer (except hemorrhage) (3 sources) H/O: duodenal ulcer 05-12-2020 Episodic Genitourinary symptoms and ill-defined conditions (4 sources) Urge incontinence of urine; Translations: [Urge incontinence] Onset: 3 05-13-2020 Chronic Genitourinary symptoms and ill-defined conditions (20 sources) Nocturia; Translations: [Nocturia] Onset: 2 Episodic Heart valve disorders (6 sources) Nonrheumatic aortic (valve) stenosis; Translations: [Nonrheumatic aortic (valve) insufficiency] Onset: 3 Chronic Hyperplasia of prostate (20 sources) Benign prostatic hypertrophy with outflow obstruction; Translations: [Benign prostatic hyperplasia with lower urinary tract symptoms] Onset: 0 Chronic Hypertension with complications and secondary hypertension (1 source) Hypertensive heart disease with heart failure; Translations: [HTN HEART DISEASE W/HEART FAIL] Onset: 3 Chronic Inflammatory conditions of male genital organs (3 sources) 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 Chronic Malaise and fatigue (10 sources) Other malaise and fatigue; Translations: [Malaise and fatigue] Onset: 4 Episodic Noninfectious gastroenteritis (1 source) Noninfective gastroenteritis and colitis, unspecified; Translations: [NONINFECTIVE GE AND COLITIS UNS] Onset: 3 Episodic Osteoarthritis (20 sources) Osteoarthritis of hip; Translations: [Osteoarthritis of knee] 05-12-2020 Chronic Other aftercare (20 sources) Long-term current use of anticoagulant; Translations: [penitentiary (current) use of anticoagulants] 05-12-2020 Episodic Other aftercare (1 source) 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; Translations: [BRANCH MECH[employer]IC CURRENT USE OF ASPIRIN] Onset: 3 Episodic Other aftercare (3 sources) Other intermediate (current) drug therapy; Translations: [OTH ALF CURRENT DRUG THERAPY] Onset: 3 Episodic Other aftercare (13 sources) H/O: high risk medication; Translations: [Other intermediate (current) drug therapy] Episodic Other aftercare (13 sources) High risk drug monitoring status; Translations: [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 opiate analgesic] Episodic Other aftercare (2 sources) penitentiary (current) use of opiate analgesic; Translations: [penitentiary (current) use of opiate analgesic] Episodic Other aftercare (1 source) 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 anticoagulants; Translations: [penitentiary (current) use of anticoagulants] Episodic Other aftercare (5 sources) Long-term current use of drug therapy; Translations: [Other intermediate card tender (current) drug therapy] Episodic Other circulatory disease (19 sources) H/O: cardiovascular disease; Translations: [Personal history of other diseases of the circulatory system] Episodic Other circulatory disease (3 sources) Personal history of other diseases of the circulatory system; Translations: [H/O atrial flutter] Episodic Other circulatory disease (3 sources) History of atrial flutter; Translations: [Personal history [...] Episodic Other diseases of bladder and urethra (5 sources) Male urethral stricture; Translations: [Unspecified urethral [...] Chronic Other ear and sense organ disorders (3 sources) Sensorineural hearing loss; Translations: [Unspecified sensorineural hearing loss] 06-20-2023 Chronic Other ear and sense organ disorders (3 sources) Unspecified sensorineural hearing loss; Translations: [Sensorineural hearing loss, unspecified] 06-20-2023 Chronic Other ear and sense organ disorders (2 sources) Impacted cerumen, unspecified ear; Translations: [Impacted cerumen] [...] Other hereditary and degenerative nervous system conditions (9 sources) Impaired cognition; Translations: [Mild cognitive impairment, so stated] 06-17-2023 Chronic Other hereditary and degenerative nervous system conditions (5 sources) Mild cognitive impairment, so stated; Translations: [...] chronic pain] Chronic Other non-traumatic joint disorders (4 sources) Pain in right knee; Translations: [Right [...] Value Interpretation Reference Range Facility Office Visiton 12-04-2023 Follow-up visit [id number] Annelise Olson 1935 M Date Provider Department Center 12/04/2023 ALEX VALENCIA ALBERT [facility] Family History Problem Relation Age of Onset Coronary artery disease Mother Coronary artery disease Father Family Status - Relation Status Age at Mother Father Level of Service:76354 [place] OFFICE/OUTPATIENT ESTABLISHED MOD MDM 30 MIN Normal [facility] No Panel Informationon 09-01 Folate 11.40 ng/mL 8.60-58.90 [facility] 08-22-2023 Screens [id number] Normal [facility] Screens [id number] Normal [facility] Patient Educationon 08-21-19 Patient Education Urology Urinary Incontinence Urinary incontinence refers to a condition in which a person is unable to control where and when to pass urine. A person with this condition will urinate involuntarily. This means that the person urinates when he or she does not mean to. What are the causes? This condition may be caused by: ? Medicines. ? Infections. ? Constipation. ? Overactive bladder muscles. ? Weak bladder muscles. ? Weak pelvic floor muscles. These muscles provide support for the bladder, intestine, and, in women, the uterus. ? Enlarged prostate in men. The prostate is a gland near the bladder. When it gets too big, it can pinch the urethra. With the urethra blocked, the bladder can weaken and lose the ability to empty properly. ? Surgery. ? Emotional factors, such as anxiety, stress, or post-traumatic stress disorder (PTSD). ? Spinal cord injury, nerve injury, or other neurological conditions. ? Pelvic organ prolapse. This happens in women when organs move out of place and into the vagina. This movement can prevent the bladder and urethra from working properly. What increases the risk? The following factors may make you more likely to develop this condition: ? Age. The older you are, the higher the risk. ? Obesity. ? Being physically inactive. ? and childbirth. ? Menopause. ? Diseases that affect the nerves or spinal cord. ? Long-term, or chronic, coughing. This can increase pressure on the bladder and pelvic floor muscles. What are the signs or symptoms? Symptoms may vary depending on the type of urinary incontinence you have. They include: ? A sudden urge to urinate, and passing urine involuntarily before you can get to a bathroom (urge incontinence). ? Suddenly passing urine when doing activities that force urine to pass, such as coughing, laughing, exercising, or sneezing (stress incontinence). ? Needing to urinate often but urinating only a small amount, or constantly dribbling urine (overflow incontinence). ? Urinating because you cannot get to the bathroom in time due to a physical disability, such as arthritis or injury, or due to a communication or thinking problem, such as Alzheimer's disease (functional incontinence). How is this diagnosed? This condition may be diagnosed based on: ? Your medical history. ? A physical exam. ? Tests, such as: ? Urine tests. ? X-rays of your kidney and bladder. ? Ultrasound. ? CT scan. ? Cystoscopy. In this procedure, a health care provider inserts a tube with a light and camera (cystoscope) through the urethra and into the bladder to check for problems. ? Urodynamic testing. These tests assess how well the bladder, urethra, and sphincter can store and release urine. There are different types of urodynamic tests, and they vary depending on what the test is measuring. To help diagnose your condition, your health care provider may recommend that you keep a log of when you urinate and how much you urinate. How is this treated? Treatment for this condition depends on the type of incontinence that you have and its cause. Treatment may include: ? Lifestyle changes, such as: ? Quitting smoking. ? Maintaining a healthy weight. ? Staying active. Try to get 150 minutes of moderate-intensity exercise every week. Ask your health care provider which activities are safe for you. ? Eating a healthy diet. ? Avoid high-fat foods, like fried foods. ? Avoid refined carbohydrates like white bread and white rice. ? Limit how much alcohol and caffeine you drink. ? Increase your fiber intake. Healthy sources of fiber include beans, whole grains, and fresh fruits and vegetables. ? Behavioral changes, such as: ? Pelvic floor muscle exercises. ? Bladder training, such as lengthening the amount of time between bathroom breaks, or using the bathroom at regular intervals. ? Using techniques to suppress bladder urges. This can include distraction techniques or controlled breathing exercises. ? Medicines, such as: ? Medicines to relax the bladder muscles and prevent bladder spasms. ? Medicines to help slow or prevent the growth of a man's prostate. ? Botox injections. These can help relax the bladder muscles. ? Treatments, such as: ? Using pulses of electricity to help change bladder reflexes (electrical nerve stimulation). ? For women, using a medical manager to prevent urine leaks. This is a small, tampon-like, disposable device that is inserted into the urethra. ? Injecting collagen or carbon beads (bulking agents) into the urinary sphincter. These can help thicken tissue and close the bladder opening. ? Surgery. Follow these instructions at home: Lifestyle ? Limit alcohol and caffeine. These can fill your bladder quickly and irritate it. ? Keep yourself clean to help prevent odors and skin damage. Ask your health care provider about special skin creams and cleansers that can protect the skin from urine. ? (more content not included)... Normal [facility] Urology Office/Clinic Noteon 08-21-2023 Urology Office/Clinic Note Chief Complaint 1 year HPI Staff 1 yr f/u. 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 S/p Cysto/UD 05/31/20 and TURP/Cysto/UD 09/01/20. *Started on Myrbetriq 25mg qd at prior OV, Pt. not sure if he is taking. Dysuria: no Incomplete bladder emptying: no, PVR 0mL Hematuria: no Frequency: 3-4 hours Urgency: no Nocturia: 1-2x's Stream: good stream Post void dripping: no Wearing pads/ Depends: no Urge incontinence: once in a while Stress incontinence: no Incontinence without Sensory Awareness: no Abdominal pain: no Flank pain: no Review of Systems PHQ Score Initial Depression Screen Score: 0 SCORE no fever, chills, malaise, myalgia. no rash/lesions. no chest pain, palpitations, or SOB. no abdominal pain, nausea, vomiting. no unilateral calf swelling, redness, pain Physical Exam Vitals & Measurements T: 36.3 ?C(Temporal Artery) HR: 64(Peripheral) RR: 19 BP: 105/57 HT: 67 in HT: 170 cm WT: 66 kg WT: 145.2 lb BMI: 22.84 General: nontoxic, NAD Mouth: moist mucosa Lungs: normal respiratory effort Cardio: regular rate, good distal perfusion Abdomen: nondistended, no suprapubic distention or tenderness, no CVA tenderness Neurologic: Grossly normal Skin: No rashes or suspicious lesions Assessment/Plan ANJU 2 not interested in tx 1. BPH with urinary obstruction (N40.1: Benign prostatic hyperplasia with lower urinary tract symptoms) IPSS 14 QOL 2 sp TURP 2020. Pt is currently taking no bladder/prostate medication and is highly satisfied with overall symptom control. No indication for treatment at this time. Continue to monitor. Ordered: Complex E&M Add on G2211 E&M of Est. Patient Low 20-29 Min 10942 2. Urge incontinence (N39.41: Urge incontinence) UA completed in office today shows no microhematuria or signs of infection. PRW prescribed myrbetriq last year. pt filled 1 mo but it didn't help and was very costly. pt not interested in trying any other meds for these sx. Ordered: Complex E&M Add on G2211 E&M of Est. Patient Low 20-29 Min 76977 3. 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 reports steady stream. no complaints at this time. Ordered: Complex E&M Add on G2211 E&M of Est. Patient Low 20-29 Min 08003 pt pleased w urinary status at this time. Offered continued scheduled follow up with our clinic vs following up PRN. Pt prefers the latter. Follow-up With When Contact Information HEATHER OQUENDO PA-C, URL Only if needed [id number] [place] [address] Business (1) Additional Instructions: PRINCESS GARCIA, KAUSHIK Pandya [facility] [address], [place] [address] [phone] Additional Instructions: Patient Education Urinary Incontinence Problem List/Past Medical History Ongoing Anticoagulant long-term [...] Tab, Oral, Daily Ernie Red, Oral, Daily Myrbetriq 25 mg oral tablet, extended release, 25 mg= 1 tab(s), Oral, Daily, 11 refills nitroglycerin omeprazole 40 mg Cap-DR, Oral, Daily tramadol 50 mg oral tablet, 50 mg= 1 tab(s), Oral, q4hr, PRN Zicam Sinus Relief, BID Zyrtec, Daily Allergies naproxen (Unknown) Social History Alcohol - Denies Alcohol Use, 05/12/2020 Tobacco - Denies Tobacco Use, 05/12/2020 Never (less than 100 in lifetime) Tobacco Use:. Never Smokeless Tobacco Use:., 08/20/2023 Family History Arthritis: Mother. Diabetes mellitus type 1: Mother. Heart disease: Mother and Father. Immunizations Vaccine Date Status influenza virus vaccine, inactivated 02/15/2021 Recorded SARS-CoV-2 (COVID-19) Ad26 vaccine 06/15/2020 Recorded SARS-CoV-2 (COVID-19) Ad26 vaccine 05/12/2020 Recorded Normal [facility] Comment on above: Result Comment: Elec tronically Signed By: AZRA SPEARS, HEATHER Dixon\mare\Date and Time Signed: 08/21/23 13:10 EDT Office Visiton 07-12-2023 Follow-up visit [id number] Annelise Olson 1935 M Date Provider Department Center 07/12/2023 CHARITO SALOMON [facility] Family History Problem Relation Age of Onset Coronary artery disease Mother Coronary artery disease Father Family Status - Relation Status Age at Mother Father Level of Service:83894 [place] OFFICE/OUTPATIENT ESTABLISHED MOD MDM 30 MIN Reason for Visit and Comments: Follow-up [066292] - Patient here for hospital follow up [facility] Basophils Auto (Bld) [#/Vol] on 07-10-2023 Basophils (Bld) [#/Vol] 0.0 10 3/uL 0.0-0.1 [facility] Basophils/100 WBC Auto (Bld) on 07-10-2023 Basophils/100 WBC (Bld) 0.5 % 0.2-2.0 [facility] Eosinophils/100 WBC Auto (Bl d)on 07-10-2023 Eosinophils/100 WBC (Bld) 3.8 % 0.9-7.0 [facility] Erythrocyte distribution wid th Auto (RBC) [Ratio]on 07-10-2023 Erythrocyte distribution width (RBC) [Ratio] 12.5 % 11.0-15.0 [facility] Estimated glomerular filtrat ion rate (GFR) non- Americanon 07-10-2023 GFR/1.73 sq M.predicted among non-blacks MDRD (S/P/Bld) [Vol rate/Area] 52 mL/min/{1.73_m2} >=60 [facility] Globulin Calc (S) [Mass/Vol] on 07-10-2023 Globulin (S) [Mass/Vol] 3.9 g/dL [facility] Hematocrit Auto (Bld) [Volum e fraction]on 07-10-2023 Hematocrit (Bld) [Volume fraction] 45.9 % 42.0-54.0 [facility] Hemoglobin [Mass/volume] in Bloodon 07-10-2023 Hemoglobin (Bld) [Mass/Vol] 15.3 g/dL 14.0-18.0 [facility] - Chemistry and C hemistry - challengeon 07-10-2023 Albumin [Mass/Vol] 3.4 g/dL 3.4-5.0 [facility] ALP [Catalytic activity/Vol] 91 U/L 46-116 [facility] ALT [Catalytic activity/Vol] 15 U/L 16-63 [facility] AST [Catalytic activity/Vol] 25 U/L 15-37 [facility] Bilirubin [Mass/Vol] 1.1 mg/dL 0.2-1.0 [facility] Calcium [Mass/Vol] 8.8 mg/dL 8.5-10.1 [facility] Chloride [Moles/Vol] 104 mmol/L 98-107 [facility] CO2 [Moles/Vol] 25.5 mmol/L 21.0-32.0 [facility] Creatinine [Mass/Vol] 1.31 mg/dL 0.70-1.30 [facility] GFR/1.73 sq M.predicted MDRD (S/P/Bld) [Vol rate/Area] mL/min/{1.73_m2} >=60 [facility] Glucose [Mass/Vol] 164 mg/dL 74-106 [facility] Natriuretic peptide B (Bld) [Mass/Vol] 436.0 pg/mL <=1800.0 [facility] Potassium [Moles/Vol] 3.8 mmol/L 3.5-5.1 [facility] Protein [Mass/Vol] 7.3 g/dL 6.4-8.2 [facility] Sodium [Moles/Vol] 138 mmol/L 136-145 [facility] Urea nitrogen [Mass/Vol] 18.0 mg/dL 7.0-18.0 [facility] Urea nitrogen/Creatinin e [Mass ratio] 13.7 mg/mg [facility] Laboratory - Hematology and Cell countson 07-10-2023 Immature granulocytes/100 WBC (Bld) 0.3 % 0.0-0.5 [facility] Leukocytes [#/volume] correc analia for nucleated erythrocytes in Blood by Automated counon 07-10-2023 WBC corrected for nucl RBC Auto (Bld) [#/Vol] 6.3 10 3/uL 4.0-11.0 [facility] Lymphocytes Auto (Bld) [#/Vo l]on 07-10-2023 Lymphocytes (Bld) [#/Vol] 1.4 10 3/uL 1.2-3.8 [facility] Lymphocytes/100 WBC Auto (Bl d)on 07-10-2023 Lymphocytes/100 WBC (Bld) 22.1 % 20.5-60.0 [facility] MCH Auto (RBC) [Entitic mass ]on 07-10-2023 MCH (RBC) [Entitic mass] 34.5 pg 25.9-34.0 [facility] MCHC Auto (RBC) [Mass/Vol]on 07-10-2023 MCHC (RBC) [Mass/Vol] 33.3 g/dL 29.9-35.2 [facility] MCV Auto (RBC) [Entitic vol] on 07-10-2023 MCV (RBC) [Entitic vol] 103.6 fL 80.0-94.0 [facility] Monocytes Auto (Bld) [#/Vol] on 07-10-2023 Monocytes (Bld) [#/Vol] 0.5 10 3/uL 0.3-0.8 [facility] Monocytes/100 WBC Auto (Bld) on 07-10-2023 Monocytes/100 WBC (Bld) 8.1 % 1.7-12.0 [facility] Neutrophils Auto (Bld) [#/Vo l]on 07-10-2023 Neutrophils (Bld) [#/Vol] 4.1 10 3/uL 1.4-6.5 [facility] Neutrophils/100 WBC Auto (Bl d)on 07-10-2023 Neutrophils/100 WBC (Bld) 65.2 % 43.0-75.0 [facility] No Panel Informationon 07-09 Troponin I High Sensitivity 36.4 pg/mL 4.0-76.1 [facility] Comment on above: CUT-OFF POINTS HAVE BEEN ESTABLISHED BASED ON THE FOURTHUNIVERSAL DEFINITION OF MYOCARDIAL INFARCTION. THE UPPERREFERENCE LIMIT (URL) OF TROPONIN, DEFINED THE 99THPERCENTILE OF cTnI DISTRIBUTION IN A REFERENCE POPULATION,HAS BEEN CONFIRMED THE DECISION THRESHOLD FOR MIDIAGNOSIS.99TH PERCENTILE = 76.2 PG/MLNOTE: HIGH-SENSITIVITY TROPONIN ASSAY IS NOT INTENDED TO BEUSED IN ISOLATION BUT SHOULD BE INTERPRETED IN CONJUNCTIONWITH OTHER DIAGNOSTIC AND CLINICAL INFORMATION. Eosinophils # (Auto) 0.2 10 3/uL 0.0-0.7 [facility] Immature Granulocyte # (Auto) 0.02 10 3/uL 0.00-0.03 [facility] Platelet mean volume Auto (B ld) [Entitic vol]on 07-10-2023 Platelet mean volume (Bld) [Entitic vol] 9.8 fL 9.5-13.5 [facility] Platelets Auto (Bld) [#/Vol] on 07-10-2023 Platelets (Bld) [#/Vol] 157 10 3/uL 150-450 [facility] RBC Auto (Bld) [#/Vol]on RBC (Bld) [#/Vol] 4.43 10 6/uL 4.70-6.10 [facility] Serum or plasma albumin/glob ulin mass ratioon 07-10-2023 Albumin/Globulin [Mass ratio] 0.9 {ratio} [facility] Serum or plasma anion gap de terminationon 07-10-2023 Anion gap [Moles/Vol] 12.3 mmol/L [facility] Office Visiton 05-14-2023 Follow-up visit [id number] Annelise Olson 1935 M Date Provider Department Center 05/14/2023 241-CAMACHO SINGER ALBERT Salguero Family History Problem Relation Age of Onset Coronary artery disease Mother Coronary artery disease Father Family Status - Relation Status Age at Mother Father Level of Service:11575 [place] OFFICE/OUTPATIENT ESTABLISHED LOW MDM 20 MIN Normal [facility] Office Visiton 12-19-2022 Follow-up visit [id number] Annelise Olson 1935 M Date Provider Department Center 12/19/2022 Khris-ELIJAH REYES ALBERT Salguero Family History Problem Relation Age of Onset Coronary artery disease Mother Coronary artery disease Father Family Status - Relation Status Age at Mother Father Level of Service:96614 [place] OFFICE/OUTPATIENT ESTABLISHED MOD MDM 30-39 MIN Reason for Visit and Comments: Follow-up [808343] Normal [facility] CBC AUTO DIFFon 08-14-2022 BASO # 0.0 103/ul Normal 0.0-0.1 [facility] Comment on above: Performed By: #### A LT, LIPID, BMP #### [facility] [address] [place] [address] Dr. Kaleb Desir Basophils/100 WBC (Bld) 0.5 % Normal 0.2-2.0 [facility] Comment on above: Performed By: #### A LT, LIPID, BMP #### [facility] [address] [place] [address] Dr. Kaleb Desir EO # 0.1 103/ul Normal 0.0-0.7 [facility] Comment on above: Performed By: #### A LT, LIPID, BMP #### [facility] [address] [place] [address] Dr. Kaleb Desir Eosinophils/100 WBC (Bld) 1.2 % Normal 0.9-7.0 [facility] Comment on above: Performed By: #### A LT, LIPID, BMP #### [facility] [address] [place] [address] Dr. Kaleb Desir Erythrocyte distribution width (RBC) [Ratio] 12.9 % Normal 11.0-15.0 [facility] Comment on above: Performed By: #### A LT, LIPID, BMP #### [facility] [address] [place] [address] Dr. Kaleb Desir Hematocrit (Bld) [Volume fraction] 38.6 % Critically low 42.0-54.0 [facility] Comment on above: Performed By: #### A LT, LIPID, BMP #### [facility] [address] [place] [address] Dr. Kaleb Desir Hemoglobin (Bld) [Mass/Vol] 13.1 g/dL Critically low 14.0-18.0 [facility] Comment on above: Performed By: #### A LT, LIPID, BMP #### [facility] [address] [place] [address] Dr. Kaleb Desir IG # 0.03 10e3/ul Normal 0.00-0.03 [facility] Comment on above: Performed By: #### A LT, LIPID, BMP #### [facility] [address] [place] [address] Dr. Kaleb Desir IG % 0.3 % Normal 0.0-0.5 [facility] Comment on above: Performed By: #### A LT, LIPID, BMP #### [facility] [address] [place] [address] Dr. Kaleb Desir LYMPH # 0.9 103/ul Critically low 1.2-3.8 [facility] Comment on above: Performed By: #### A LT, LIPID, BMP #### [facility] [address] [place] [address] Dr. Kaleb Desir Lymphocytes/100 WBC (Bld) 10.3 % Critically low 20.5-60.0 [facility] Comment on above: Performed By: #### A LT, LIPID, BMP #### [facility] [address] [place] [address] Dr. Kaleb Desir MANUAL DIFF REQ NO Normal [facility] Comment on above: Performed By: #### A LT, LIPID, BMP #### [facility] [address] [place] [address] Dr. Kaleb eDsir MCH (RBC) [Entitic mass] 34.0 pg Normal 25.9-34.0 [facility] Comment on above: Performed By: #### A LT, LIPID, BMP #### [facility] [address] [place] [address] Dr. Kaleb Desir MCHC (RBC) [Mass/Vol] 33.9 g/dL Normal 29.9-35.2 [facility] Comment on above: Performed By: #### A LT, LIPID, BMP #### [facility] [address] [place] [address] Dr. Kaleb Desir MCV (RBC) [Entitic vol] 100.3 fL Critically high 80.0-94.0 [facility] Comment on above: Performed By: #### A LT, LIPID, BMP #### [facility] [address] [place] [address] Dr. Kaleb Desir MONO # 0.8 103/ul Normal 0.3-0.8 [facility] Comment on above: Performed By: #### A LT, LIPID, BMP #### [facility] [address] [place] [address] Dr. Kaleb Desir Monocytes/100 WBC (Bld) 9.2 % Normal 1.7-12.0 [facility] Comment on above: Performed By: #### A LT, LIPID, BMP #### [facility] [address] [place] [address] Dr. Kaleb Desir NEUT # 7.0 103/ul Critically high 1.4-6.5 [facility] Comment on above: Performed By: #### A LT, LIPID, BMP #### [facility] [address] [place] [address] Dr. Kaleb Desir Neutrophils/100 WBC (Bld) 78.5 % Critically high 43.0-75.0 [facility] Comment on above: Performed By: #### A LT, LIPID, BMP #### [facility] [address] [place] [address] Dr. Kaleb Desir Platelet mean volume (Bld) [Entitic vol] 9.0 fL Critically low 9.5-13.5 [facility] Comment on above: Performed By: #### A LT, LIPID, BMP #### [facility] [address] [place] [address] Dr. Kaleb Desir PLT 164 103/ul Normal 150-450 [facility] Comment on above: Performed By: #### A LT, LIPID, BMP #### [facility] [address] [place] [address] Dr. Kaleb Desir RBC 3.85 106/ul Critically low 4.70-6.10 [facility] Comment on above: Performed By: #### A LT, LIPID, BMP #### [facility] [address] [place] [address] Dr. Kaleb Desir WBC 8.9 103/ul Normal 4.0-11.0 [facility] Comment on above: Performed By: #### A LT, LIPID, BMP #### [facility] [address] ABD/PELVIS WO CONon [...] Colt CALABRESE Date: 2022-08-14 03:24 Normal [facility] ER URINE PROFILEon 3 Bilirubin Ql (U) Negative Normal NEGATIVE [facility] Comment on above: Performed By: #### A LT, LIPID, BMP #### [facility] [address] [place] [address] Dr. Kaleb Desir Clarity (U) CLEAR Normal CLEAR [facility] Comment on above: Performed By: #### A LT, LIPID, BMP #### [facility] [address] [place] [address] Dr. Kaleb Desir Color (U) YELLOW Normal YELLOW [facility] Comment on above: Performed By: #### A LT, LIPID, BMP #### [facility] [address] [place] [address] Dr. Kaleb Desir ERUAHD A micrscopic examina tion will be performed if indicated. Normal [facility] Comment on above: Performed By: #### A LT, LIPID, BMP #### [facility] [address] [place] [address] Dr. Kaleb Desir Glucose Ql (U) Negative Normal NEGATIVE [facility] Comment on above: Performed By: #### A LT, LIPID, BMP #### [facility] [address] [place] [address] Dr. Kaleb Desir Hemoglobin Ql (U) TRACE-INTACT Abnormal NEGATIVE [facility] Comment on above: Performed By: #### A LT, LIPID, BMP #### [facility] [address] [place] [address] Dr. Kaleb Desir Ketones Ql (U) TRACE Abnormal NEGATIVE [facility] Comment on above: Performed By: #### A LT, LIPID, BMP #### [facility] [address] [place] [address] Dr. Kaleb Desir LEUKOCYTES Negative Normal NEGATIVE [facility] Comment on above: Performed By: #### A LT, LIPID, BMP #### [facility] [address] [place] [address] Dr. Kaleb Desir Nitrite Ql (U) Negative Normal NEGATIVE [facility] Comment on above: Performed By: #### A LT, LIPID, BMP #### [facility] [address] [place] [address] Dr. Kaleb Desir pH (U) 5.5 [pH] Normal 5-9 [facility] Comment on above: Performed By: #### A LT, LIPID, BMP #### [facility] [address] [place] [address] Dr. Kaleb Desir SPEC GRAVITY >=1.030 Abnormal 1.005-<=1.0 25 [facility] Comment on above: Performed By: #### A LT, LIPID, BMP #### [facility] [address] [place] [address] Dr. Kaleb Desir UA PROTEIN Negative Normal NEGATIVE/ TRACE [facility] Comment on above: Performed By: #### A LT, LIPID, BMP #### [facility] [address] [place] [address] Dr. Kaleb Desir UR MICRO IND NOT INDICATED Normal [facility] Comment on above: Performed By: #### A LT, LIPID, BMP #### [facility] [address] [place] [address] Dr. Kaleb Desir Urobilinogen Qn (U) 0.2 {Silver'U}/dL Normal 0.2 - 1.0 [facility] Comment on above: Performed By: #### A LT, LIPID, BMP #### [facility] [address] [place] [address] Dr. Kaleb Desir LIPASEon 08-14-2022 Lipase [Catalytic activity/Vol] 91.0 U/L Normal 73.0-393.0 [facility] Comment on above: Performed By: #### C MP, LIPA #### [facility] [address] [place] [address] Dr. Kaleb Desir PROF 14(COMP METB)on 023 Albumin [Mass/Vol] 3.2 g/dL Critically low 3.4-5.0 [facility] Comment on above: Performed By: #### A LT, LIPID, BMP #### [facility] [address] [place] [address] Dr. Kaleb Desir Albumin/Globulin [Mass ratio] 1.0 {ratio} Normal [facility] Comment on above: Performed By: #### A LT, LIPID, BMP #### [facility] [address] [place] [address] Dr. Kaleb Desir ALP [Catalytic activity/Vol] 78 U/L Normal 46-116 [facility] Comment on above: Performed By: #### A LT, LIPID, BMP #### [facility] [address] [place] [address] Dr. Kaleb Desir ALT [Catalytic activity/Vol] 20 U/L Normal 16-63 [facility] Comment on above: Performed By: #### A LT, LIPID, BMP #### [facility] [address] [place] [address] Dr. Kaleb Desir Anion gap [Moles/Vol] 12.6 mmol/L Normal [facility] Comment on above: Performed By: #### A LT, LIPID, BMP #### [facility] [address] [place] [address] Dr. Kaleb Desir AST [Catalytic activity/Vol] 21 U/L Normal 15-37 [facility] Comment on above: Performed By: #### A LT, LIPID, BMP #### [facility] [address] [place] [address] Dr. Kaleb Desir Bilirubin [Mass/Vol] 0.8 mg/dL Normal 0.2-1.0 [facility] Comment on above: Performed By: #### A LT, LIPID, BMP #### [facility] [address] [place] [address] Dr. Kaleb Desir Calcium [Mass/Vol] 8.5 mg/dL Normal 8.5-10.1 [facility] Comment on above: Performed By: #### A LT, LIPID, BMP #### [facility] [address] [place] [address] Dr. Kaleb Desir Chloride [Moles/Vol] 105 mmol/L Normal 98-107 [facility] Comment on above: Performed By: #### A LT, LIPID, BMP #### [facility] [address] [place] [address] Dr. Kaleb Desir CO2 [Moles/Vol] 24.4 mmol/L Normal 21.0-32.0 [facility] Comment on above: Performed By: #### A LT, LIPID, BMP #### [facility] [address] [address] [address] Kaleb Desir Creatinine [Mass/Vol] 1.13 mg/dL Normal 0.70-1.30 [facility] Comment on above: Performed By: #### A LT, LIPID, BMP #### [facility] [address] [address] [address] Kaleb Desir EGFR-AF PALAUAN >60 Normal >=60 [facility] Comment on above: Performed By: #### A LT, LIPID, BMP #### [facility] [address] [address] [address] Kaleb Desir EGFR-NON AF PALAUAN >60 Normal >=60 [facility] Comment on above: Performed By: #### A LT, LIPID, BMP #### [facility] [address] [place] [address] Dr. Kaleb Desir Globulin (S) [Mass/Vol] 3.1 g/dL Normal [facility] Comment on above: Performed By: #### A LT, LIPID, BMP #### [facility] [address] [place] [address] Dr. Kaleb Desir Glucose [Mass/Vol] 129 mg/dL Critically high 74-106 [facility] Comment on above: Performed By: #### A LT, LIPID, BMP #### [facility] [address] [place] [address] Dr. Kaleb Desir Potassium [Moles/Vol] 4.0 mmol/L Normal 3.5-5.1 [facility] Comment on above: Performed By: #### A LT, LIPID, BMP #### [facility] [address] [place] [address] Dr. Kaleb Desir Protein [Mass/Vol] 6.3 g/dL Critically low 6.4-8.2 [facility] Comment on above: Performed By: #### A LT, LIPID, BMP #### [facility] [address] [place] [address] Dr. Kaleb Desir Sodium [Moles/Vol] 138 mmol/L Normal 136-145 [facility] Comment on above: Performed By: #### A LT, LIPID, BMP #### [facility] [address], [place] [address] Dr. Kaleb Desir Urea nitrogen [Mass/Vol] 15.0 mg/dL Normal 7.0-18.0 [facility] Comment on above: Performed By: #### A LT, LIPID, BMP #### [facility] [address], [place] [address] Dr. Kaleb Desir Urea nitrogen/Creatinin e [Mass ratio] 13.3 mg/mg Normal [facility] Comment on above: Performed By: #### A LT, LIPID, BMP #### [facility] [address] CSPINE WO CONon [...] KAILASH BARNES Date: 2022-06-11 21:51 Normal [facility] CT HEAD WO CONon 06-11-2022 CT [...] EDUARDO SINGLETON Date: 2022-06-11 21:57 Normal [facility] STOOL CULTUREon 02-20-2022 Campylobacter Culture Final report Normal [facility] Comment on above: Performed By: #### C XSTOOL #### [facility] [address] [address] [address] Kaleb Desir E coli Shiga Toxin EIA Negative Normal Negative [facility] Comment on above: Performed By: #### C XSTOOL #### [facility] [address] [address] [address] Kaleb Desir Result 1 Comment Normal [facility] Comment on above: Result Comment: No S almonella or Shigella recovered. Performed By: #### C XSTOOL #### [facility] [address] [place] [address] Dr. Kaleb Desir Result Comment: No C ampylobacter species isolated. Salmonella/Shigell a Screen Final report Normal [facility] Comment on above: Performed By: #### C XSTOOL #### [facility] [address] [place] [address] Dr. Kaleb Desir C. DIFF PCRon 02-16-2022 C. DIFFICILE PCR Negative Normal NEGATIVE [facility] Comment on above: Performed By: #### C DIFPOC #### [facility] [address] [place] [address] Dr. Kaleb Desir CBC AUTO DIFFon 02-16-2022 BASO # 0.0 103/ul Normal 0.0-0.1 [facility] Comment on above: Performed By: #### C BC #### [facility] [address] [place] [address] Dr. Kaleb Desir Basophils/100 WBC (Bld) 0.6 % Normal 0.2-2.0 [facility] Comment on above: Performed By: #### C BC #### [facility] [address] [place] [address] Dr. Kaleb Desir EO # 0.3 103/ul Normal 0.0-0.7 [facility] Comment on above: Performed By: #### C BC #### [facility] [address] [place] [address] Dr. Kaleb Desir Eosinophils/100 WBC (Bld) 4.0 % Normal 0.9-7.0 [facility] Comment on above: Performed By: #### C BC #### [facility] [address] [place] [address] Dr. Kaleb Desir Erythrocyte distribution width (RBC) [Ratio] 12.4 % Normal 11.0-15.0 [facility] Comment on above: Performed By: #### C BC #### [facility] [address] [place] [address] Dr. Kaleb Desir Hematocrit (Bld) [Volume fraction] 40.5 % Critically low 42.0-54.0 [facility] Comment on above: Performed By: #### C BC #### [facility] [address] [place] [address] Dr. Kaleb Desir Hemoglobin (Bld) [Mass/Vol] 13.7 g/dL Critically low 14.0-18.0 [facility] Comment on above: Performed By: #### C BC #### [facility] [address] [address] [address] Kaleb Desir IG # 0.01 10e3/ul Normal 0.00-0.03 [facility] Comment on above: Performed By: #### C BC #### [facility] [address] [place] [address] Dr. Kaleb Desir IG % 0.1 % Normal 0.0-0.5 [facility] Comment on above: Performed By: #### C BC #### [facility] [address] [place] [address] Dr. Kaleb Desir LYMPH # 1.7 103/ul Normal 1.2-3.8 [facility] Comment on above: Performed By: #### C BC #### [facility] [address] [place] [address] Dr. Kaleb Desir Lymphocytes/100 WBC (Bld) 25.5 % Normal 20.5-60.0 [facility] Comment on above: Performed By: #### C BC #### [facility] [address] [place] [address] Dr. Kaleb Desir MANUAL DIFF REQ NO Normal [facility] Comment on above: Performed By: #### C BC #### [facility] [address] [place] [address] Dr. Kaleb Desir MCH (RBC) [Entitic mass] 34.4 pg Critically high 25.9-34.0 [facility] Comment on above: Performed By: #### C BC #### [facility] [address] [place] [address] Dr. Kaleb Desir MCHC (RBC) [Mass/Vol] 33.8 g/dL Normal 29.9-35.2 [facility] Comment on above: Performed By: #### C BC #### [facility] [address] [address] [address] Kaleb Desir MCV (RBC) [Entitic vol] 101.8 fL Critically high 80.0-94.0 [facility] Comment on above: Performed By: #### C BC #### [facility] [address] [place] [address] Dr. Kaleb Desir MONO # 0.9 103/ul Critically high 0.3-0.8 [facility] Comment on above: Performed By: #### C BC #### [facility] [address] [place] [address] Dr. Kaleb Desir Monocytes/100 WBC (Bld) 12.4 % Critically high 1.7-12.0 [facility] Comment on above: Performed By: #### C BC #### [facility] [address] [place] [address] Dr. Kaleb Desir NEUT # 3.9 103/ul Normal 1.4-6.5 [facility] Comment on above: Performed By: #### C BC #### [facility] [address] [place] [address] Dr. Kaleb Desir Neutrophils/100 WBC (Bld) 57.4 % Normal 43.0-75.0 [facility] Comment on above: Performed By: #### C BC #### [facility] [address] [place] [address] Dr. Kaleb Desir Platelet mean volume (Bld) [Entitic vol] 9.0 fL Critically low 9.5-13.5 [facility] Comment on above: Performed By: #### C BC #### [facility] [address] [place] [address] Dr. Kaleb Desir PLT 181 103/ul Normal 150-450 [facility] Comment on above: Performed By: #### C BC #### [facility] [address] [place] [address] Dr. Kaleb Desri RBC 3.98 106/ul Critically low 4.70-6.10 [facility] Comment on above: Performed By: #### C BC #### [facility] [address] [place] [address] Dr. Kaleb Desir WBC 6.8 103/ul Normal 4.0-11.0 [facility] Comment on above: Performed By: #### C BC #### [facility] [address] [place] [address] Dr. Kaleb Desir PROF CHEM 8 (BAS METB)on Anion gap [Moles/Vol] 11.0 mmol/L Normal [facility] Comment on above: Performed By: #### A LT, LIPID, BMP #### [facility] [address] [place] [address] Dr. Kaleb Desir Calcium [Mass/Vol] 8.9 mg/dL Normal 8.5-10.1 [facility] Comment on above: Performed By: #### A LT, LIPID, BMP #### [facility] [address] [place] [address] Dr. Kaleb Desir Chloride [Moles/Vol] 105 mmol/L Normal 98-107 [facility] Comment on above: Performed By: #### A LT, LIPID, BMP #### [facility] [address] [place] [address] Dr. Kaleb Desir CO2 [Moles/Vol] 26.6 mmol/L Normal 21.0-32.0 [facility] Comment on above: Performed By: #### A LT, LIPID, BMP #### [facility] [address] [place] [address] Dr. Kaleb Desir Creatinine [Mass/Vol] 1.02 mg/dL Normal 0.70-1.30 [facility] Comment on above: Performed By: #### A LT, LIPID, BMP #### [facility] [address] [place] [address] Dr. Kaleb Desir EGFR-AF PALAUAN >60 Normal >=60 [facility] Comment on above: Performed By: #### A LT, LIPID, BMP #### [facility] [address] [place] [address] Dr. Kaleb Desir EGFR-NON AF PALAUAN >60 Normal >=60 [facility] Comment on above: Performed By: #### A LT, LIPID, BMP #### [facility] [address] [place] [address] Dr. Kaleb Desir Glucose [Mass/Vol] 102 mg/dL Normal 74-106 [facility] Comment on above: Performed By: #### A LT, LIPID, BMP #### [facility] [address] [place] [address] Dr. Kaleb Desir Potassium [Moles/Vol] 3.6 mmol/L Normal 3.5-5.1 [facility] Comment on above: Performed By: #### A LT, LIPID, BMP #### [facility] [address] [place] [address] Dr. Kaleb Desir Sodium [Moles/Vol] 139 mmol/L Normal 136-145 [facility] Comment on above: Performed By: #### A LT, LIPID, BMP #### [facility] [address] [place] [address] Dr. Kaleb Desir Urea nitrogen [Mass/Vol] 14.0 mg/dL Normal 7.0-18.0 [facility] Comment on above: Performed By: #### A LT, LIPID, BMP #### [facility] [address] [place] [address] Dr. Kaleb Desir Urea nitrogen/Creatinin e [Mass ratio] 13.7 mg/mg Normal [facility] Comment on above: Performed By: #### A LT, LIPID, BMP #### [facility] [address] [place] [address] Dr. Kaleb Desir CBC AUTO DIFFon 01-19-2022 BASO # 0.1 103/ul Normal 0.0-0.1 [facility] Comment on above: Performed By: #### A LT, LIPID, BMP #### [facility] [address] [place] [address] Dr. Kaleb Desir Basophils/100 WBC (Bld) 0.8 % Normal 0.2-2.0 [facility] Comment on above: Performed By: #### A LT, LIPID, BMP #### [facility] [address] [place] [address] Dr. Kaleb Desir EO # 0.4 103/ul Normal 0.0-0.7 [facility] Comment on above: Performed By: #### A LT, LIPID, BMP #### [facility] [address] [place] [address] Dr. Kaleb Desir Eosinophils/100 WBC (Bld) 5.8 % Normal 0.9-7.0 [facility] Comment on above: Performed By: #### A LT, LIPID, BMP #### [facility] [address] [place] [address] Dr. Kaleb Desir Erythrocyte distribution width (RBC) [Ratio] 12.2 % Normal 11.0-15.0 [facility] Comment on above: Performed By: #### A LT, LIPID, BMP #### [facility] [address] [place] [address] Dr. Kaleb Desir Hematocrit (Bld) [Volume fraction] 41.8 % Critically low 42.0-54.0 [facility] Comment on above: Performed By: #### A LT, LIPID, BMP #### [facility] [address] [place] [address] Dr. Kaleb Desir Hemoglobin (Bld) [Mass/Vol] 14.0 g/dL Normal 14.0-18.0 [facility] Comment on above: Performed By: #### A LT, LIPID, BMP #### [facility] [address] [place] [address] Dr. Kaleb Desir IG # 0.01 10e3/ul Normal 0.00-0.03 [facility] Comment on above: Performed By: #### A LT, LIPID, BMP #### [facility] [address] [place] [address] Dr. Kaleb Desir IG % 0.2 % Normal 0.0-0.5 [facility] Comment on above: Performed By: #### A LT, LIPID, BMP #### [facility] [address] [place] [address] Dr. Kaleb Desir LYMPH # 1.9 103/ul Normal 1.2-3.8 [facility] Comment on above: Performed By: #### A LT, LIPID, BMP #### [facility] [address] [address] [address] Kaleb Desir Lymphocytes/100 WBC (Bld) 31.7 % Normal 20.5-60.0 [facility] Comment on above: Performed By: #### A LT, LIPID, BMP #### [facility] [address] [place] [address] Dr. Kaleb Desir MANUAL DIFF REQ NO Normal [facility] Comment on above: Performed By: #### A LT, LIPID, BMP #### [facility] [address] [place] [address] Dr. Kaleb Desir MCH (RBC) [Entitic mass] 34.1 pg Critically high 25.9-34.0 [facility] Comment on above: Performed By: #### A LT, LIPID, BMP #### [facility] [address] [place] [address] Dr. Kaleb Desir MCHC (RBC) [Mass/Vol] 33.5 g/dL Normal 29.9-35.2 [facility] Comment on above: Performed By: #### A LT, LIPID, BMP #### [facility] [address] [place] [address] Dr. Kaleb Desir MCV (RBC) [Entitic vol] 101.7 fL Critically high 80.0-94.0 [facility] Comment on above: Performed By: #### A LT, LIPID, BMP #### [facility] [address] [place] [address] Dr. Kaleb Desir MONO # 0.8 103/ul Normal 0.3-0.8 [facility] Comment on above: Performed By: #### A LT, LIPID, BMP #### [facility] [address] [place] [address] Dr. Kaleb Desir Monocytes/100 WBC (Bld) 13.8 % Critically high 1.7-12.0 [facility] Comment on above: Performed By: #### A LT, LIPID, BMP #### [facility] [address] [place] [address] Dr. Kaleb Desir NEUT # 2.9 103/ul Normal 1.4-6.5 [facility] Comment on above: Performed By: #### A LT, LIPID, BMP #### [facility] [address] [place] [address] Dr. Kaleb Desir Neutrophils/100 WBC (Bld) 47.7 % Normal 43.0-75.0 [facility] Comment on above: Performed By: #### A LT, LIPID, BMP #### [facility] [address] [place] [address] Dr. Kaleb Desir Platelet mean volume (Bld) [Entitic vol] 8.9 fL Critically low 9.5-13.5 [facility] Comment on above: Performed By: #### A LT, LIPID, BMP #### [facility] [address] [place] [address] Dr. Kaleb Desir PLT 174 103/ul Normal 150-450 [facility] Comment on above: Performed By: #### A LT, LIPID, BMP #### [facility] [address] [place] [address] Dr. Kaleb Desir RBC 4.11 106/ul Critically low 4.70-6.10 [facility] Comment on above: Performed By: #### A LT, LIPID, BMP #### [facility] [address] [place] [address] Dr. Kaleb Desir WBC 6.0 103/ul Normal 4.0-11.0 [facility] Comment on above: Performed By: #### A LT, LIPID, BMP #### [facility] [address] [place] [address] Dr. Kaleb Desir LIPID PROFILEon 01-19-2022 CHOL-HDL RATIO NORM SEE BELOW Normal [facility] Comment on above: Result Comment: 3.3 - 4.4 LOW RISK 4.4 - 7.1 AVERAGE RISK 7.1 - 11.0 MODERATE RISK >11.0 HIGH RISK Performed By: #### A LT, LIPID, BMP #### [facility] [address] [place] [address] Dr. Kaleb Desir Cholesterol [Mass/Vol] 137 mg/dL Normal <=200 [facility] Comment on above: Performed By: #### A LT, LIPID, BMP #### [facility] [address] [address] [address] Kaleb Desir Cholesterol in HDL [Mass/Vol] 58 mg/dL Normal 40-60 [facility] Comment on above: Performed By: #### A LT, LIPID, BMP #### [facility] [address] [address] [address] Kaleb Desir Cholesterol in LDL [Mass/Vol] 68.6 mg/dL Normal [facility] Comment on above: Performed By: #### A LT, LIPID, BMP #### [facility] [address] [place] [address] Dr. Kaleb Desir Cholesterol.total/ Cholesterol in HDL [Mass ratio] 2.4 {ratio} Normal [facility] Comment on above: Performed By: #### A LT, LIPID, BMP #### [facility] [address] [address] [address] Kaleb Desir HDL NORMAL > or = 60 mg/dl - LO W CARDIOVASCULAR RISK <40 mg/dl - HIGH CARDIOVASCULAR RISK Normal [facility] Comment on above: Performed By: #### A LT, LIPID, BMP #### [facility] [address] [address] [address] Kaleb Desir LDL CALC NORMAL SEE BELOW Normal [facility] Comment on above: Result Comment: <100 mg/dl OPTIMAL 100 - 129 mg/dl NEAR OR ABOVE OPTIMAL 130 - 159 mg/dl BORDERLINE HIGH 160 - 189 mg/dl HIGH >190 mg/dl VERY HIGH Performed By: #### A LT, LIPID, BMP #### [facility] [address] [address] [address] Kaleb Desir Triglyceride [Mass/Vol] 52 mg/dL Normal <=150 [facility] Comment on above: Performed By: #### A LT, LIPID, BMP #### [facility] [address] [place] [address] Dr. Kaleb Desir VLDL CALC 10.4 mg/dL Normal [facility] Comment on above: Performed By: #### A LT, LIPID, BMP #### [facility] [address] [address] [address] Kaleb Desir PROF CHEM 8 (BAS METB)on Anion gap [Moles/Vol] 13.1 mmol/L Normal [facility] Comment on above: Performed By: #### A LT, LIPID, BMP #### [facility] [address] [address] [address] Kaleb Desir Calcium [Mass/Vol] 8.9 mg/dL Normal 8.5-10.1 [facility] Comment on above: Performed By: #### A LT, LIPID, BMP #### [facility] [address] [place] [address] Dr. Kaleb Desir Chloride [Moles/Vol] 105 mmol/L Normal 98-107 [facility] Comment on above: Performed By: #### A LT, LIPID, BMP #### [facility] [address] [place] [address] Dr. Kaleb Desir CO2 [Moles/Vol] 25.0 mmol/L Normal 21.0-32.0 [facility] Comment on above: Performed By: #### A LT, LIPID, BMP #### [facility] [address] [place] [address] Dr. Kaleb Desir Creatinine [Mass/Vol] 1.17 mg/dL Normal 0.70-1.30 [facility] Comment on above: Performed By: #### A LT, LIPID, BMP #### [facility] [address] [place] [address] Dr. Kaleb Desir EGFR-AF PALAUAN >60 Normal >=60 [facility] Comment on above: Performed By: #### A LT, LIPID, BMP #### [facility] [address] [place] [address] Dr. Kaleb Desir EGFR-NON AF PALAUAN 59 mL/min/1.73m2 Critically low >=60 [facility] Comment on above: Performed By: #### A LT, LIPID, BMP #### [facility] [address] [place] [address] Dr. Kaleb Desir Glucose [Mass/Vol] 103 mg/dL Normal 74-106 [facility] Comment on above: Performed By: #### A LT, LIPID, BMP #### [facility] [address] [address] [address] Kaleb Desir Potassium [Moles/Vol] 4.1 mmol/L Normal 3.5-5.1 [facility] Comment on above: Performed By: #### A LT, LIPID, BMP #### [facility] [address] [address] [address] Kaleb Desir Sodium [Moles/Vol] 139 mmol/L Normal 136-145 [facility] Comment on above: Performed By: #### A LT, LIPID, BMP #### [facility] [address] [address] [address] Kaleb Desir Urea nitrogen [Mass/Vol] 18.0 mg/dL Normal 7.0-18.0 [facility] Comment on above: Performed By: #### A LT, LIPID, BMP #### [facility] [address] [place] [address] Dr. Kaleb Desir Urea nitrogen/Creatinin e [Mass ratio] 15.4 mg/mg Normal [facility] Comment on above: Performed By: #### A LT, LIPID, BMP #### [facility] [address] [address] [address] Kaleb Desir [facility] 01-19-2022 ALT [Catalytic activity/Vol] 21 U/L Normal 16-63 [facility] Comment on above: Performed By: #### A LT, LIPID, BMP #### [facility] [address] [place] [address] Dr. Kaleb Desir Cardiovascular Lab Reporton 06-13-2020 Cardiovascular Lab Report [facility] Patient Name: Annelise Olson MR #: [id number] [facility] Physician: Camacho Singer MD Service Date: 06/13/2020 Department of Birthdate: 1935 Medicine Room #: Division of Cardiology Adult Cardiovascular Services [address] [address] Cardiovascular Laboratory Report [employer] AND [...] the sternum on the left using the [employer] tool. The loop recorder was then injected [...] (more content not included)... Normal [facility] Vital Signs Date Time Vital Sign Value Performing Clinician Facility 10-17-2023 10:39-0400 Body height 172.72 cm [facility] 10-17-2023 10:39-0400 Body mass index (BMI) [Ratio] 21.4 kg/m2 [facility] 10-17-2023 10:39-0400 Body weight 64.12 kg [facility] 10-17-2023 10:39-0400 Diastolic blood pressure 56 mm[Hg] [facility] 10-17-2023 10:39-0400 Heart rate 63 /min [facility] 10-17-2023 10:39-0400 Respiratory rate 12 /min [facility] 10-17-2023 10:39-0400 Systolic blood pressure 133 mm[Hg] [facility] 08-20-2023 10:13-0400 Blood Pressure Location HEATHER GUEVARARY [facility] 08-20-2023 10:13-0400 Body temperature 97.34 [degF] HEATHER AZRA [facility] 08-20-2023 10:13-0400 Diastolic blood pressure 57 mm[Hg] HEATHER AZRA [facility] 08-20-2023 10:13-0400 Heart rate 64 /min HEATHER AZRA [facility] 08-20-2023 10:13-0400 Respiratory rate 19 /min HEATHER AZRA [facility] 08-20-2023 10:13-0400 Systolic blood pressure 105 mm[Hg] HEATHER AZRA [facility] 06-20-2023 10:42-0500 Body height 172.72 cm [facility] 06-20-2023 10:42-0500 Body mass index (BMI) [Ratio] 22 kg/m2 [facility] 06-20-2023 10:42-0500 Body weight 65.77 kg [facility] 06-20-2023 10:42-0500 Diastolic blood pressure 66 mm[Hg] [facility] 06-20-2023 10:42-0500 Heart rate 103 /min [facility] 06-20-2023 10:42-0500 Respiratory rate 20 /min [facility] 06-20-2023 10:42-0500 Systolic blood pressure 102 mm[Hg] [facility] 05-09-2023 11:00-0500 Body height 172.72 cm Miguel Ball Other [facility] 05-09-2023 11:00-0500 Body mass index (BMI) [Ratio] 21.98 kg/m2 Miguel Ball Other [facility] Other 05-09-2023 11:00-0500 Body weight 65.59 kg Miguel Ball Other [facility] Other 05-09-2023 11:00-0500 Body weight 65.58 kg [facility] 05-09-2023 11:00-0500 Diastolic blood pressure 66 mm[Hg] Miguel Ball Other [facility] 05-09-2023 11:00-0500 Respiratory rate 12 /min Miguel Ball Other [facility] Other 05-09-2023 11:00-0500 Systolic blood pressure 118 mm[Hg] Miguel Ball Other [facility] 10-26-2022 10:30-0400 Body height 172.72 cm Miguel Ball Other [facility] Other 10-26-2022 10:30-0400 Body mass index (BMI) [Ratio] 21.89 kg/m2 Miguel Ball Other [facility] Other 10-26-2022 10:30-0400 Body weight 65.32 kg Miguel Ball Other [facility] Other 10-26-2022 10:30-0400 Diastolic blood pressure 60 mm[Hg] Miguel Ball Other [facility] Other 10-26-2022 10:30-0400 Respiratory rate 12 /min Miguel Ball Other [employer] [facility] Other 10-26-2022 10:30-0400 Systolic blood pressure 104 mm[Hg] Miguel Ball Other [employer] [facility] Other 08-17-2022 08:47-0400 Blood Pressure Location Conner SÁNCHEZ [facility] 08-17-2022 08:47-0400 Diastolic blood pressure 76 mm[Hg] Conner SÁNCHEZ [facility] 08-17-2022 08:47-0400 Heart rate 80 /min Conner SÁNCHEZ [facility] 08-17-2022 08:47-0400 Respiratory rate 16 /min Conner SÁNCHEZ [facility] 08-17-2022 08:47-0400 Systolic blood pressure 128 mm[Hg] Conner SÁNCHEZ [facility] 08-14-2021 09:20-0400 Blood Pressure Location Conner SÁNCHEZ [facility] 08-14-2021 09:20-0400 Diastolic blood pressure 76 mm[Hg] Conner SÁNCHEZ [facility] 08-14-2021 09:20-0400 Heart rate 61 /min Conner SÁNCHEZ [facility] 08-14-2021 09:20-0400 Systolic blood pressure 160 mm[Hg] Conner SÁNCHEZ [facility] Jorge L Encounters Encounter Date Encounter Type Care Provider Facility Start: 12-04-2023 End: 12-04-2023 ambulatory ALEX PRIETO [facility] Start: 11-14-2023 End: 11-14-2023 ambulatory ANUM A BROWN Not Available Start: 10-29-2023 ambulatory CAMACHO [facility] Start: 10-24-2023 End: 10-24-2023 ambulatory ANUM A BROWN Not Available Start: 10-17-2023 End: 10-17-2023 ambulatory [facility] Work Phone: Start: 10-17-2023 End: 10-17-2023 Patient encounter procedure [facility] Work Phone: Start: 10-15-2023 ambulatory [facility] Start: 10-15-2023 ambulatory [facility] Start: 10-10-2023 End: 10-10-2023 ambulatory ANUM A BROWN Not Available Start: 10-09-2023 ambulatory CAMACHO [facility] Start: 09-26-2023 End: 09-26-2023 ambulatory ANUM A BROWN Not Available Start: 09-12-2023 End: 09-12-2023 ambulatory ANUM A BROWN Not Available Start: 09-11-2023 End: 09-11-2023 ambulatory FATEMEH KELLY Not Available Start: 09-02-2023 Non-patient / Non-visit [facility] Work Phone: Start: 08-29-2023 End: 08-29-2023 ambulatory SOPHIA HAMILTON Not Available Start: 08-29-2023 End: 08-29-2023 ambulatory ANUM A BROWN Not Available Start: 08-26-2023 End: 08-26-2023 ambulatory HAWK HILL Not Available Start: 08-20-2023 End: 08-21-2023 ambulatory HEATHER OQUENDO Facility: [place] Start: 08-20-2023 End: 08-20-2023 Patient encounter procedure HEATHER OQUENDO [facility] Start: 08-15-2023 End: 08-15-2023 ambulatory ANUM FOLEY Not Available Start: 08-01-2023 End: 08-01-2023 ambulatory ANUM FOLEY Not Available Start: 07-29-2023 ambulatory CAMACHO SINGER [facility] Start: 07-18-2023 End: 07-18-2023 ambulatory ANUM FOLEY Not Available Start: 07-12-2023 End: 07-12-2023 ambulatory CHARITO GREY [facility] Start: 07-11-2023 End: 07-11-2023 ambulatory HAWK HILL Not Available Start: 07-10-2023 Non-patient / Non-visit [facility] Work Phone: Start: 07-04-2023 End: 07-04-2023 ambulatory ANUM FOLEY Not Available Start: 06-20-2023 End: 06-20-2023 ambulatory [facility] Work Phone: Start: 06-20-2023 End: 06-20-2023 Patient encounter procedure [facility] Work Phone: Start: 06-04-2023 End: 06-04-2023 ambulatory HAWK H[place] Not Available Start: 05-29-2023 End: 05-29-2023 ambulatory Miguel Guevara Other [facility] Other Start: 05-29-2023 Telephone encounter Miguel BONILLA [facility] Start: 05-27-2023 End: 05-27-2023 ambulatory Miguel Guevara Other [facility] Other Start: 05-27-2023 Telephone encounter Miguel Ball [facility] Start: 05-15-2023 End: 05-15-2023 ambulatory Miguel Ball Other [facility] Other Start: 05-15-2023 Telephone encounter Miguel Guevara FP [facility] Start: 05-15-2023 Patient encounter procedure [facility]- Start: 05-14-2023 End: 05-14-2023 ambulatory [facility] Start: 05-13-2023 End: 05-13-2023 ambulatory Miguel Ball Other [facility] Other Start: 05-13-2023 Telephone encounter Miguel Guevara [facility] Start: 05-09-2023 End: 05-09-2023 ambulatory Miguel Ball Other [facility] Other Start: 05-09-2023 Office outpatient vi sit 25 minutes Miguel Ismael [facility] Start: 05-09-2023 End: 05-09-2023 Patient encounter procedure [facility] Work Phone: Start: 01-29-2023 End: 01-29-2023 ambulatory Miguel Ball Other [facility] Other Start: 01-29-2023 Telephone encounter Miguel Guevara [facility] Start: 01-21-2023 End: 01-21-2023 ambulatory Miguel Ball Other [facility] Other Start: 01-21-2023 Telephone encounter Miguel Ball FP [facility] Start: 12-31-2022 End: 12-31-2022 ambulatory Miguel Ball Other [facility] Other Start: 12-31-2022 Telephone encounter Miguel Ball FP [facility] Start: 12-29-2022 End: 12-29-2022 ambulatory Miguel Ball Other [facility] Other Start: 12-29-2022 Telephone encounter [facility] Start: 12-26-2022 End: 12-26-2022 ambulatory Miguel Guevara Other [facility] Other Start: 12-26-2022 Telephone encounter Miguel Guevara IRENE Guevara [facility] Start: 12-19-2022 End: 12-19-2022 ambulatory [facility] Start: 10-26-2022 End: 10-26-2022 ambulatory Miguel Guevara Other [facility] Other Start: 10-26-2022 Office outpatient vi sit 25 minutes Miguel Guevara [facility] [place] [facility] Start: 08-17-2022 End: 08-17-2022 Patient encounter procedure Conner SÁNCHEZ [facility] Start: 08-14-2022 End: 08-14-[address] MIGUEL GUEVARA Facility:[facility]1 Start: 06-11-2022 End: 06-12-2022 ambulatory KAILASH BARNES Facility:[facility] Start: 02-16-2022 End: 02-17-[address] MIGUEL GUEVARA Facility:[facility] Start: 01-19-2022 End: 01-20-[address] MIGUEL GUEVARA Facility:[facility] Start: 01-16-2022 Adult health examination Miguel Guevara Other [facility] Other Start: 01-16-2022 Encounter for genera l adult medical examination without abnormal findings Miguel Guevara Other [facility] Other Start: 08-14-2021 End: 08-14-2021 Patient encounter procedure Conner SÁNCHEZ [facility] Procedures Date Procedure Procedure Detail Performing Clinician Start: 09-01-2020 Transurethral prostatectomy Conner HOUSTON Start: 05-31-2020 Cystoscopy Conner SÁNCHEZ Start: 05-11-2015 Screening for malignant neoplasm of prostate Miguel Guevara Other Start: 05-10-2015 Screening for malignant neoplasm of colon Miguel Guevara Other Start: 05-06-2011 Colonoscopy Conner SÁNCHEZ Start: 05-06-2011 Esophagogastroduodenoscopy Conner Bar Start: 05-06-2011 Total replacement of right hip joint Conner SÁNCHEZ Start: 05-06-1997 Femoral herniorrhaphy - bilateral Thomas SÁNCHEZ Start: 05-06-1994 Coronary artery bypass graft Conner WINTERS Depression screening Temo Guevara Other Plan of Treatment Date Care Activity Detail Author Start: 06-20-2023 Patient referral [facility] Work Phone: Patient referral [facility] Work Phone: Immunizations Immunization Date Immunization Notes Care Provider Fa gladys 01-28-2023 influenza virus vaccine, unspecified formulation [facility] 01-28-2023 influenza, high dose seasonal, preservative-free Miguel Guevara Other [facility] Other 02-10-2022 COVID-19 Vaccine Pfi zer - Documentation Purposes Only Miguel Guevara Other [facility] 01-05-2022 influenza virus vaccine, split virus (incl. purified surface antigen) Miguel Guevara Other [facility] Other 01-05-2022 influenza virus vaccine, unspecified formulation [facility] 02-15-2021 influenza virus vaccine, unspecified formulation Conner SÁNCHEZ [facility] 01-17-2021 influenza virus vaccine, split virus (incl. purified surface antigen) Miguel Guevara Other [facility] Other 01-17-2021 influenza virus vaccine, unspecified formulation [facility] 06-15-2020 SARS-CoV-2 (COVID-19 ) Ad26 vaccine, recombinant Conner SÁNCHEZ [facility] 05-12-2020 SARS-CoV-2 (COVID-19 ) Ad26 vaccine, recombinant Conner SÁNCHEZ [facility] 01-02-2020 influenza virus vaccine, split virus (incl. purified surface antigen) Miguel Guevara Other [facility] Other 01-02-2020 influenza virus vaccine, unspecified formulation [facility] 02-12-2018 influenza virus vaccine, split virus (incl. purified surface antigen) Miguel Guevara Other [facility] Other 02-12-2018 influenza virus vaccine, unspecified formulation [facility] 04-03-2017 pneumococcal conjuga te vaccine, 13 valent Miguel Guevara Other [facility] 03-22-2017 influenza virus vaccine, split virus (incl. purified surface antigen) Miguel Guevara Other [facility] Other 03-22-2017 influenza virus vaccine, unspecified formulation [facility] 02-08-2016 diphtheria, tetanus toxoids and acellular pertussis vaccine, unspecified formulation Miguel Guevara Other [facility] 01-03-2016 influenza virus vaccine, split virus (incl. purified surface antigen) Miguel Guevara Other [facility] Other 01-03-2016 influenza virus vaccine, unspecified formulation [facility] 05-10-2015 pneumococcal conjuga te vaccine, 13 valent Miguel Guevara Other [facility] 01-13-2014 tetanus and diphther ia toxoids, adsorbed, preservative free, for adult use (5 Lf of tetanus toxoid and 2 Lf of diphtheria toxoid) Miguel Guevara Other [facility] 03-11-2013 tetanus and diphther ia toxoids, adsorbed, preservative free, for adult use (5 Lf of tetanus toxoid and 2 Lf of diphtheria toxoid) Miguel Guevara Other [facility] 01-26-2013 tetanus and diphther ia toxoids, adsorbed, preservative free, for adult use (5 Lf of tetanus toxoid and 2 Lf of diphtheria toxoid) Miguel Guevara Other [facility] 01-21-2013 tetanus and diphther ia toxoids, adsorbed, preservative free, for adult use (5 Lf of tetanus toxoid and 2 Lf of diphtheria toxoid) Miguel Guevara Other [facility] 04-12-2010 pneumococcal polysaccharide vaccine, 23 valent Miguel Guevara Other [facility] Payers Date Payer Category Payer Unknown [id number] 1958 Medicare [id number] 1958 Unknown [id number] 1936 Unknown [id number] 2.16.84 0.1.107335.3.579.2.593 1936 Unknown [id number] 2.16.84 0.1.332358.3.579.2.593 1936 Unknown [id number] 2.16.84 0.1.285315.3.579.2.593 1936 Unknown [id number] 2.16.84 0.1.414692.3.579.2.593 1936 Unknown [id number] 2.16.8 40.1.012399.3.579.2.727 1936 Unknown [id number] 2.16.84 0.1.611004.3.579.2.1259 1936 Unknown [id number] 2.16.84 0.1.884536.3.579.2.125 1936 Unknown [id number] 2.16.84 0.1.473307.3.579.2.1258 1936 Unknown [id number] 2.16.84 0.1.275218.3.579.2.1258 1936 Unknown [id number] 2.16.84 0.1.803751.3.579.2.1258 1936 Unknown [id number] 2.16.84 0.1.367351.3.579.2.1258 1936 Unknown [id number] 2.16.84 0.1.160426.3.579.2.1258 1936 Unknown [id number] 2.16.84 0.1.579957.3.579.2.1258 1936 Unknown [id number] 2.16.84 0.1.893555.3.579.2.1258 1936 Unknown [id number] 2.16.84 0.1.976111.3.579.2.1258 1936 Unknown [id number] 2.16.84 0.1.856381.3.579.2.1258 1936 Unknown [id number] 2.16.84 0.1.885084.3.579.2.1258 1936 Unknown [id number] 2.16.84 0.1.114776.3.579.2.1258 1936 Unknown [id number] 2.16.84 0.1.855228.3.579.2.1258 1936 Unknown [id number] 2.16.84 0.1.065865.3.579.2.1258 1936 Unknown [id number] 2.16.84 0.1.447319.3.579.2.1258 1936 Unknown [id number] 2.16.84 0.1.379985.3.579.2.1259 Social History Date Type Detail Facility Start: 08-14-2021 End: 06-17-2023 Tobacco smoking status Never smoked tobacco (finding) [facility] Tobacco smoking status Never [facility] Sex Assigned At Male [facility] Start: 1935 Sex Assigned At Male F [facility] Functional Status Date Assessment Result Facility 08-20-2023 Functional Status N/A [facility] 08-17-2022 Functional Status Yes [facility] Clinical Notes 08-14-2021 to 12-04-2023 Note Date & Type Note Facility 12-04-2023 Note [facility] Subjective Annelise Olson is a 88 y.o. year old male patient being seen for 6 mo follow up CAD, hypertension, mitral and aortic valve insufficiency, and ischemic cardiomyopathy. He denies chest pain, SOB, and lightheadedness/syncope. Says his palpitations are once in awhile and do not occur more than usual for him. states he was diagnosed with memory loss, but NOT Alzheimer's Disease, since last visit. 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 Osteoarthritis of hip Osteoarthritis of knee Peripheral venous insufficiency Poor urinary stream Primary hypertension Spondylosis of lumbar spine Urge incontinence of urine 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 Mitral valve insufficiency and aortic valve insufficiency Ischemic cardiomyopathy Chronic HFrEF (heart failure with reduced ejection fraction) (CMS/HCC) Fatigue H/O atrial flutter Mild cognitive impairment Pain in right knee SNHL (sensorineural hearing loss) Stage 3a chronic kidney disease (CMS/HCC) Family History Problem Relation Name Age of Onset Coronary artery disease Mother Coronary artery disease Father Social History Tobacco Use Smoking status: Never Passive exposure: Never Smokeless tobacco: Never Substance Use Topics Alcohol use: Never Drug use: Never HPI Mr Olson is seen for follow up. He is a 88 yo man with history of CAD s/p bypass surgery in 1994 with MEZA to LAD, SVG to diagonal and SVG to RCA. Cardiac cath in 2005 showed that MEZA to LAD and SVG to RCA were occluded. The SVG to the diagonal was patent and he had mildly reduced LV function with EF 45%. 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 He has history of bradycardia with blocked PACs. He also has history of atrial flutter status post atrial flutter ablation and loop recorder implant in June 2020. Dr. Camacho Singer had stopped his Eliquis based on absence of recurrence of atrial flutter. His loop recorder had picked up possible atrial fibrillation but review by Dr. Camacho Singer showed artifact and sinus rhythm. today he reports that he has been doing well. He and his say that he has no major symptoms of shortness of breath or chest pain. He has been trying to keep active with working in the yard. He does complain of occasional palpitations. Review of his loop recorder tracings show short episodes of tachycardia possibly atrial flutter. Review of Systems Cardiovascular: Positive for palpitations. Musculoskeletal: Positive for myalgias. Psychiatric/Behavioral: Positive for memory loss. All other systems reviewed and are negative. Objective Visit Vitals BP 110/60 (BP Location: Right arm, Patient Position: Sitting) Pulse 75 Ht 1.676 m (5' 6 ) Wt 62.6 kg (138 lb) SpO2 97% BMI 22.27 kg/m??? Smoking Status Never BSA 1.71 m??? Physical Exam Constitutional: Appearance: He is well-developed. He is not ill-appearing. HENT: Head: Normocephalic and atraumatic. Nose: Nose normal. Eyes: General: No scleral icterus. Pupils: Pupils are equal, round, and reactive to light. Neck: Thyroid: No thyromegaly. Vascular: No JVD. Cardiovascular: Rate and Rhythm: Normal rate and regular rhythm. Pulses: Radial pulses are 2+ on the right side and 2+ on the left side. Heart sounds: Murmur heard. Systolic (RUSB) murmur is present with a grade of 2/6. No friction rub. No gallop. Pulmonary: Effort: Pulmonary effort is normal. No respiratory distress. Breath sounds: Normal breath sounds. No wheezing or rales. Chest: Chest wall: No tenderness. Abdominal: General: Bowel sounds are normal. There is no distension. Palpations: Abdomen is soft. Tenderness: There is no abdominal tenderness. Musculoskeletal: General: No swelling. Cervical back: Neck supple. Skin: General: Skin is warm and dry. Neurological: General: No focal deficit present. Mental Status: He is alert and oriented to person, place, and time. Psychiatric: Mood and Affect: Mood normal. Behavior: Behavior is cooperative. Judgment: Judgment normal. Allergies Allergies Allergen Reactions Naproxen Unknown Medications Current Outpatient Medications: aspirin 81 mg chewable tablet, in the morning., Disp: , Rfl: atorvastatin (Lipitor) 40 mg tablet, Take 1 tablet every day by oral route., Disp: , Rfl: cetirizine (ZyrTEC) 10 mg capsule, if n (more content not included)... [facility] 07-12-2023 Note [facility] II- currently e uvolemic without exacerbation Continue GDMT- ASA, lipitor, farxiga, lasix Diuretic therapy, and lisinopril Monitor daily weights, I&O, fluid restriction 1.5-2L/day, renal function and electrolytes- [facility] 07-12-2023 Note Repeat echocardiogra m prior to next visit [facility] 07-12-2023 Note Hypertension is curr ently well controlled Continue lisinopril Renal function normal [facility] 07-12-2023 Note [facility] PROGR ESS NOTE HPI: Annelise Olson is a 88 y.o. male here for routine F/U Pt presents today for routine f/U for known CAD s/p CABG, A flutter s/p ablation, A fib, HF mid range EF, HTN, HPL. Pt on 07/10/23 returned to home after doing errands and had mid sternal chest pain- felt like a baseball in my chest. He took 1 NTG SL with voiced relief of chest pain. Denied any re-occurance of chest pain since the episode 2 days ago. Chest Pain This is a new problem. The current episode started in the past 7 days. The onset quality is sudden. The problem has been resolved. The pain is present in the substernal region. The pain is at a severity of 6/10. The pain is moderate. The quality of the pain is described as sharp and pressure. The pain does not radiate. Associated symptoms include exertional chest pressure. The pain is aggravated by movement and exertion. He has tried nitroglycerin for the symptoms. The treatment provided significant relief. Risk factors include sedentary lifestyle, being elderly, stress, male gender and obesity. His past medical history is significant for CAD, hyperlipidemia and hypertension. [facility] 07/10/23 Review of Systems Cardiovascular: Positive for chest pain. Previous HPI per DR Singer 05/14/23 05/14/23 Patient here for 5 mo follow up stress test. He was started on Farxiga by Elijah Reyes at last visit in Dec 2022. He had routine labs in Jan 2023. states Farxiga was expensive for them so they'd like to know if there's an alternative. Denies chest pain, SOB, palpitations, and lightheadedness/syncope. Device check that was performed by me with the [employer] rep today revealed multiple episodes of A-fib. but when they were personally reviewed and all appeared to be sinus rhythm with PACs or SA node exit block. he is currently not on anticoagulation. HPI: patient here for 2 month follow [...] prior visitI did personally check on 05/01/22, Visit Vitals BP 120/62 (BP Location: Left arm, Patient Position: Sitting, BP Cuff Size: Adult) Pulse 50 Resp 11 Ht 1.676 m (5' 6 ) Wt 67.1 kg (148 lb) SpO2 97% BMI 23.89 kg/m??? Smoking Status Never BSA 1.77 m??? Allergies Allergen Reactions Naproxen Unknown Medications: Current Outpatient Medications on File Prior to Visit Medication Sig Dispense Refill atorvastatin (Lipitor) 40 mg tablet Take 1 tablet every day by oral route. finasteride (Proscar) 5 mg tablet Take 1 tablet every day by oral route. furosemide (Lasix) 40 mg tablet TAKE 1 TABLET BY MOUTH IN THE MORNING 90 tablet 3 lisinopril 10 mg tablet Take 10 mg by mouth in the morning. nitroglycerin (Nitrostat) 0.[address] 1 tablet under the tongue if needed every 5 minutes for chest pain for 3 doses IF NO RELIEF AFTER FIRST DOSE CALL PRESCRIBER OR 911. omeprazole (PriLOSEC) [address] capsule Take 1 capsule every day by oral route. aspirin 81 mg chewable tablet in the morning. cetirizine (ZyrTEC) 10 mg capsule if needed. dapagliflozin propanediol (Farxiga) 10 mg Take 1 tablet (10 mg) by mouth once daily as directed. 90 tablet 3 dapagliflozin propanediol (Farxiga) 10 mg Take 1 tablet (10 mg) by mouth in the morning. 90 tablet 3 niacin, inositol niacinate, 500 mg capsule Take 1 capsule every day by oral route. traMADol (Ultram) 50 mg tablet No current facility-administered medications on file prior to visit. Physical Exam: Constitutional: Appearance: Normal appearance. Without apparent distress HENT: Head: Normocephalic and atraumatic. Nose: Nose normal. Mouth/Throat: Mouth: Mucous membranes are moist. Eyes: Extraocular Movements: Extraocular movements intact. Conjunctiva/sclera: Conjunctivae normal. Neck: Vascular: No JVD. Cardiovascular: Rate and Rhythm: Normal rate and regular rhythm. Pulses: Dorsalis pedis pulses are 3 on the right side and 3on the left side. Posterior tibial pulses are 3 on (more content not included)... [facility] 07-12-2023 Note Lipid abnormalities are stable Continue statin [facility] 07-12-2023 Note 1 episode of angina that resolved with 1 NTG SL therefore will start imdur 30 mg daily Continue GDMT- ASA, lipitor, lisinopril- no beta sissy r/t bradycardia continue risk factor modifications- heart healthy diet, regular exercise as tolerated and continue all medications. [facility] 06-20-2023 Hospital Discharge instructions Ambulatory OrdersReferral to Audiology Time Frame: 06/20/23, Location: None SelectedReferral to Neurology Time Frame: 06/20/23, Location: None Selected [facility] Work Phone: 06-20-2023 Evaluation note Diagnosis Onset Date Mild cognitive impairment ac cabazon Primary hypertension acute SNHL (sensorineural hearing loss) acute Stage 3a chronic kidney disease acute Cerumen impaction noneactive [facility] Work Phone: [phone]) 397-402901-10-2024 Evaluation note* Encounter Date Diagnosis Assessment Notes Treatment Notes Treatment Clinical Notes May, Chronic HFrEF (heart failure with reduced ejection fraction) (ICD-10 - I50.22) Echocardiogram: 12/2022 LVEF 45%, RV dilated, mild MR, [facility] Other 01-09-2024 NoteUT Cardiology Consult Note Reason [...] that was performed by me with the [employer] rep today revealed multiple episodes of A-fib. [...] Resource Strain: No (more content not included)...[facility]01-08-2024 Evaluation note* Encounter Date Diagnosis Assessment Notes Treatment Notes Treatment Clinical Notes May, Mild cognitive impairment (ICD-10 - G31.84) [facility] Other 01-04-2024 Evaluation note* Encounter Date Diagnosis [...] May, Fatigue, unspecified type (ICD-10 - R53.83) [facility] Other 09-18-2023 Evaluation note* Encounter Date Diagnosis Assessment Notes Treatment Notes Treatment Clinical Notes Jan, Essential hypertension (ICD-10 - I10) [facility] Other 08-28-2023 Evaluation note* Encounter Date Diagnosis Assessment Notes Treatment Notes Treatment Clinical Notes Dec, ASHD (arteriosclerotic heart disease) (ICD-10 - I25.10) [place] Imaging: LVEF 40% [facility] Other 08-26-2023 Evaluation note* Encounter Date Diagnosis Assessment Notes Treatment Notes Treatment Clinical Notes Dec, ASHD (arteriosclerotic heart disease) (ICD-10 - I25.10) NM Imaging: LVEF 40% [facility] Other 08-23-2023 Evaluation note* Encounter Date Diagnosis Assessment Notes Treatment Notes Treatment Clinical Notes Dec, Lumbar spondylosis (ICD-10 - M47.816) [facility] Other 08-16-2023 NoteUT Cardiology Consult Note Reason [...] 1 tablet every day by oral route. cetiri (more content not included)...[facility] 10-26-2022 Evaluation note* Encounter Date Diagnosis Assessment Notes [...] prevent thromboembolic events. No bleeding complications Oct, penitentiary (current) use of opiate analgesic (ICD-10 - [...] report is being monitored every 90 days. [facility] Other 04-14-2023 Hospital Discharge instructions Follow Up Care 08/17/2022 09:23:38 With:PRINCESS GARCIA, Conner Simpson, URL Address: [facility] [address] , [place] [address]- [phone] When: Unknown [facility] [place] 04-14-2023 Hospital Discharge instructions Patient Education 08/17/2022 [...] urethra. Follow these instructions at home: Take qbpk-yaj-uyhnisc and prescription medicines only as told by [...] 04/22/2006 Document Revised: 03/17/2019 Document Reviewed: 05/27/2017 [employer] Patient Education 2020 [employer]. Follow Up Care 08/14/2021 10:16:11 With:PRINCESS GARCIA, Conner Simpson, KAUSHIK Address: [facility] [address] [place] [address]- [phone] When:Within 1 Year(s) Comments:1 year fu [facility] [place] 04-11-2022 Hospital Discharge instructions Patient Education 08/14/2021 [...] reconstructed. Follow these instructions at home: Take olnv-ock-mzvjmrp and prescription medicines only as told by [...] 05/18/2016 Document Revised: 12/03/2018 Document Reviewed: 12/03/2018 [employer] Patient Education 2020 [employer]. 08/14/2021 10:10:57 Benign Prostatic Hyperplasia Benign Prostatic [...] urethra. Follow these instructions at home: Take ifxd-ofw-qbsvvjt and prescription medicines only as told by [...] 04/22/2006 Document Revised: 03/17/2019 Document Reviewed: 05/27/2017 [employer] Patient Education 2020 [employer] Follow Up Care 02/06/2021 12:37:54 With:PRINCESS GARCIA, CUCO PandyaL Address: [facility] [address] [place] [address]- [phone] When:08/14/2022 Comments:f/u in 1 year [facility] [place] Evaluation + Plan note Future Appointments Appointment Date:08/17/2022 08:45:00 AM Scheduled Provider:Conner SÁNCHEZ MD Location:[facility] Appointment Type:URO Office Visit [facility] evaluation + Plan note Future Appointments Appointment Date:08/19/2023 09:45:00 AM Scheduled Provider:Conner SÁNCHEZ MD Location:[facility] Appointment Type:URO Office Visit [facility] evaluation noteNo Asp[facility] Other Evaluation note* Diagnosis Onset Date Resolution Status Mild cognitive impairment ac cabazon Primary hypertension acute SNHL (sensorineural hearing loss) acute Stage 3a chronic kidney disease acute Cerumen impaction noneactive [facility] Work Phone: Evaluation note* Diagnosis Onset Date Resolution Status Chronic HFrEF (heart failure with reduced ejection fraction) acute Hypercholesterolemia acute Ischemic cardiomyopathy acut e Mild cognitive impairment ac cabazon Primary hypertension acute SNHL (sensorineural hearing loss) acute Stage 3a chronic kidney disease acute [facility] Work Phone: History general Narrative - Reported* Type Description [...] Medical History Left leg swelling Medical History penitentiary (current) use of opiat e analgesic Surgical History TURP, WITH CYSTOSCOPY Surgical History ABLATION, ARRHYTHMOG ENIC FOCUS, FOR ATRIAL FLUTTER, IN CARDIAC CATHETERIZATION Surgical History CABG Surgical History B/L HERNIORRPHAPHY Surgical History COLONSCOPY Surgical History EGD Hospitalization History SEE SURGICAL HX [facility] Other History general Narrative - Reported* Type [...] History Arthritis of knee, right Medical History penitentiary (current) use of opiat e analgesic Medical History HFrEF Medical History Ischemic cardiomyopathy Surgical History TURP, WITH CYSTOSCOPY Surgical History ABLATION, ARRHYTHMOG ENIC FOCUS, FOR ATRIAL FLUTTER, IN CARDIAC CATHETERIZATION Surgical History CABG Surgical History B/L HERNIORRPHAPHY Surgical History COLONSCOPY Surgical History EGD Hospitalization History SEE SURGICAL HX [facility] Other Hospital course Narrative No data available for this section [facility] [place] progress note No data available for this section [facility] Summary Purpose Family History No Family History Records FoundNo Family History Records Found No data available for this section No Family History Records FoundNo Family History Records FoundNo Family History Records Found Advance Directives No Advanced Directives Records Found Advance Directive Response Recorded Date/ Time Advance Directives No June 10:30am Advance Directive Response Recorded Date/ Time Advance Directives No June 11:30am Chief Complaint and Reason for Visit Chief Complaint 3 Month Follow Up Check Ears Reason for Visit Mild cognitive impai rment Primary hypertension SNHL (sensorineural hearing loss) Stage 3a chronic kidney disease Cerumen impaction Chief Complaint Check Ears Reason for Visit Mild cognitive impai rment Primary hypertension SNHL (sensorineural hearing loss) Stage 3a chronic kidney disease Cerumen impaction Chief Complaint 4 month follow up Reason for Visit Chronic HFrEF (heart failure with reduced ejection fraction) Hypercholesterolemia Ischemic cardiomyopathy Mild cognitive impairment Primary hypertension SNHL (sensorineural hearing loss) Stage 3a chronic kidney disease Additional Source Comments (unrecognized sect ion and content) No Status Records FoundNo Status Records FoundNo Status Records FoundNo Status Records FoundNo Status Records Found INFORMATION SOURCE (unrecogn ized section and content) DATE CREATED AUTHOR 06/10/2021 [facility] DATE CREATED AUTHOR AUTHOR'S ORGANIZ ATION 08/16/2022 [facility] DATE CREATED AUTHOR AUTHOR'S ORGANIZ ATION 08/22/2023 [facility] DATE CREATED AUTHOR AUTHOR'S ORGANIZ ATION 11/20/2023 [facility] DATE CREATED AUTHOR AUTHOR'S ORGANIZ ATION 12/06/2023 [facility] Patient Care team informatio n (unrecognized section and content) Team Status: Active Member Role Status Dates Miguel Guevara DO Primary Care Provider Active Team Status: Active Member Role Status Dates Miguel Guevara DO Primary Care Provider Active Start: September 02, 2023 Fatemeh Kelly DO Attending Provider Active Sta rt: September 02, 2023 Team Status: Inactive Member Role Status Dates Miguel Guevara DO Primary Care Provide r, Attending Provider Active Start: October 17, 2023 End: October 17, 2023 Team Status: Inactive Member Role Status Dates Miguel Guevara DO Attending Provider Active Sta rt: May 09, 2023 End: May 09, 2023 Team Status: Active Member Role Status Dates Provider Conversion Attending Provider Active St art: May 15, 2023 Team Status: Inactive Member Role Status Dates Miguel Guevara DO Primary Care Provide r, Attending Provider Active Start: June 20, 2023 End: June 20, 2023 Team Status: Active Member Role Status Dates Miguel Guevara DO Primary Care Provide r, Attending Provider Active Start: July 10, 2023 REASON FOR VISIT (unrecogniz ed section [...] BE BASED ON THE PRIMARY CLINICAL RECORDS. [employer] [facility]. provides no warranty or guarantee of the accuracy or completeness of information in this document.
== END 2023-12-13 08:58 | disposition home or self-care (01) ==
LOC: CARD 08:57
PROVIDERS: PCP Internal Medicine; Visit Provider Internal Medicine Interventional Cardiology
DX: I50.22 Chronic systolic (congestive) heart failure (principal)
CPT/HCPCS: 93306

== ENCOUNTER 2024-02-07 11:25 | Outpatient (OUT) | payer MEDICARE, SELFPAY ==
[2024-02-07 11:35] LABS: Basophils Percent Auto 0.4 % (0.2-2.0); Eosinophils Absolute Auto 0.3 10^3/uL (0.0-0.7); Eosinophils Percent Auto 4.1 % (0.9-7.0); Hematocrit 44.4 % (42.0-54.0); Hemoglobin 14.9 g/dL (14.0-18.0); Immature Granulocytes Abs Auto 0.02 10^3/uL (0.00-0.03); Immature Granulocytes Pct Auto 0.3 % (0.0-0.5); Lymphocytes Absolute Auto 1.4 10^3/uL (1.2-3.8); Lymphocytes Percent Auto 19.3 % (20.5-60.0); Mean Corpuscular HGB Conc 33.6 g/dL (29.9-35.2); Mean Corpuscular Hemoglobin 34.9 pg (25.9-34.0); Mean Platelet Volume 8.8 fL (9.5-13.5); Monocytes Absolute Auto 0.8 10^3/uL (0.3-0.8); Monocytes Percent Auto 10.6 % (1.7-12.0); Neutrophils Absolute Auto 4.7 10^3/uL (1.4-6.5); Neutrophils Percent Auto 65.3 % (43.0-75.0); Platelet Count 146 10^3/uL (150-450); Red Blood Count 4.27 10^6/uL (4.70-6.10); Red Cell Distribution Width 12.2 % (11.0-15.0); White Blood Count 7.2 10^3/uL (4.0-11.0)
--- OUTSIDE RECORDS SUMMARY | 2024-02-07 11:46 | XMS_ITS | CCD ---
Author Organization [facility] Care Team Providers Care Pasta Press Operator Name Role Phone MIGUEL GUEVARA Primary Care Physician KAILASH BARNES Consulting Unavailable MEAGAN, GEOVANY Admitting Unavailable GEOVANY RHODES Attending Unavailable ISMAEL, DR RIVERA Primary Care Unavailable ARELI, EDUARDO Consulting Unavailable JENARO PAGE Consulting Unavailable BALL, DR RIVERA Attending Unavailable [...] Attending Unavailable BROWN, ANUM Naranjo Attending Unavailable JOYSOPHIA Attending Unavailable BALLMIGUEL Referring Unavailable LETICIAFATEMEH Attending Unavailable BROWN, ANUM Naranjo Attending Unavailable BROWN, ANUM Naranjo Attending Unavailable BROWN, ANUM Naranjo Attending Unavailable BROWN, ANUM Naranjo Attending Unavailable BROWN, ANUM Naranjo Attending Unavailable BROWN, ANUM Naranjo Attending Unavailable HILL, HAWK T Referring Unavailable HILL, HAWK Vanegas Attending Unavailable LETICIAFATEMEH Attending Unavailable KIZZY, SILVERIO Referring Unavailable KIZZY, SILVERIO Referring Unavailable KIZZY, SILVERIO Referring Unavailable KIZZY, SILVERIO Referring Unavailable KIZZY, SILVERIO Referring Unavailable KIZZY, SILVERIO Referring Unavailable KIZZY, SILVERIO Referring Unavailable KIZZY, SILVERIO Referring Unavailable KIZZY, SILVERIO Referring Unavailable KIZZY, SILVERIO Referring Unavailable KIZZY, SILVERIO Referring Unavailable CADE, CAMACHO Referring Unavailable MATILDAJAKECHARITO Attending Unavailable CADE, CAMACHO Attending Unavailable CADE, CAMACHO Attending Unavailable KIZZY, SILVERIO Referring Unavailable ALEX PRIETO Attending Unavailable CADE, CAMACHO Referring Unavailable CADE, CAMACHO Referring Unavailable KIZZY, SILVERIO Referring Unavailable KIZZY, SILVERIO Referring Unavailable KIZZY, SILVERIO Referring Unavailable KIZZY, SILVERIO Referring Unavailable CADE, CAMACHO Referring Unavailable KIZZY, SILVERIO Referring Unavailable Allergies Allergy Classification Reported Allergen(s) Allergy Type Date of Onset Reaction(s) Facility (18 sources) Naproxen; Translations: [naproxen] Drug Allergy 4 Unknown (qualifier value) [facility] (1 source) Naproxen Drug Allergy [address] [facility] (6 sources) patient allergy list reviewed by nurse or physicia Propensity to adverse reactions 9 Comment:Done [employer] Other Medications Current Medications Medication Drug Class(es) Dates Sig (Normalized) Sig (Original) apixaban 5 mg oral tablet (3 sources) Factor Xa Inhibitor Start: 05-12-2020 take 1 mg by mouth twice daily Eliquis 5 mg oral tablet mg tab(s), Oral, BID, Refills(s) 0 Start Date: 05/12/20 Status: Ordered aspirin 81 mg delayed release oral tablet (18 sources) Platelet Aggregation Inhibitor, Nonsteroidal Anti-inflammatory Drug [...] tablet (20 sources) HMG-CoA Reductase Inhibitor Start: 11-18-2023 take 1 tablet by mouth once daily in the evening Atorvastatin Active 0 .ROUTE .COMPLEX 90 November 18, 2023 1:28pm TAKE 1 TABLET BY MOUTH DAILY IN THE EVENING Start: 05-12-2020 End: 07-15-2024 take 40 mg by mouth once daily Atorvastatin Discontinu ed 40 MG PO Daily June 17, 2023 1:00am November 18, 2023 1:28pm cetirizine hydrochloride 10 mg oral capsule (20 [...] 1:00am Start: 06-09-2022 [facility] twenty-four hours Lisinopril 10 MG 1 tablet Orally Once a day Jun, Active Start: 05-12-2020 take 1 mg by mouth once daily lisinopril 5 mg Tab mg tab(s), Oral, Daily, Refills(s) 0 Start Date: 05/12/20 Status: Ordered Ernie Red (3 sources) Start: 05-31-2020 Ernie Red Ernie Red, Oral, Daily Start Date: 05/31/20 Status: Ordered 24 hr metoprolol succinate 25 mg extended release oral tablet (1 source) beta-Adrenergic Sissy Start: 12-10-2023 take 12.5 mg by mouth once daily Metoprolol Succinate Active 12.5 MG PO Daily December 10, 2023 12:00am 24 hr mirabegron 25 mg extended release oral tablet (2 sources) beta3-Adrenergic Agonist Start: 08-17-2022 take 1 tablet by mouth once daily Myrbetriq 25 mg oral tablet, extended release 25 mg = 1 tab(s), Oral, Daily, # 30 tab(s), Refills(s) 11, Pharmacy: [id number], 170, cm, 04/14/23 8:49:00 EDT, Height/Length Dosing, 66, kg, 08/17/22 8:49:00 EDT, Weight Dosing Start Date: 08/17/22 Status: Ordered nitroglycerin 0.4 mg sublingual tablet (18 sources) Nitrate Vasodilator Start: 10-17-2023 Nitroglycerin (Nitrostat) [...] omeprazole 40 mg delayed release oral capsule (20 sources) Proton Pump Inhibitor Start: 05-12-2020 take [...] Ordered tamsulosin hydrochloride 0.4 mg oral capsule (18 sources) alpha-Adrenergic Sissy Start: 06-17-2023 take 1 [...] [Typical atrial flutter] Onset: 2 05-12-2020 Chronic Chronic kidney disease (13 sources) Chronic kidney disease stage 3A ; Translations: [Stage 3a chronic kidney disease] 06-17-2023 Chronic Complication of device; implant or graft (2 sources) Atherosclerosis of coronary artery bypass graft(s), unspecified, with other forms of angina pectoris; Translations: [Atherosclerosis of coronary artery bypass graft(s), unspecified, with other forms of angina pectoris] Onset: 4 Chronic Congestive heart failure; nonhypertensive (11 sources) Heart failure, unspecified; Translations: [Chronic systolic heart failure] Onset: 3 Chronic Coronary atherosclerosis and other heart disease (20 sources) Coronary arteriosclerosis; Translations: [Atherosclerotic heart disease of council coronary artery without angina pectoris] Onset: 2 [...] 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 Chronic Malaise and fatigue (11 sources) Other malaise and fatigue; Translations: [Malaise and fatigue] Onset: 4 Episodic Noninfectious gastroenteritis (1 source) Noninfective gastroenteritis and colitis, unspecified; Translations: [NONINFECTIVE GE AND COLITIS UNS] Onset: 3 Episodic Osteoarthritis (20 sources) Osteoarthritis of hip; Translations: [Osteoarthritis of knee] 05-12-2020 Chronic Other aftercare (20 sources) Long-term current use of anticoagulant; Translations: [FDC (current) use of anticoagulants] 05-12-2020 Episodic Other aftercare (1 source) FDC (current) use of aspirin; Translations: [NURSE HEALTHCARE MANAGER CURRENT USE OF ASPIRIN] Onset: 3 Episodic Other aftercare (3 sources) Other roasterman (current) drug therapy; Translations: [OTH NURSE HEALTHCARE MANAGER CURRENT DRUG THERAPY] Onset: 3 Episodic Other aftercare (13 sources) H/O: high risk medication; Translations: [Other penitentiary (current) drug therapy] Episodic Other aftercare (13 sources) High risk drug monitoring status; Translations: [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 analgesic] Episodic Other aftercare (2 sources) FDC (current) use of opiate analgesic; Translations: [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 analgesic] Episodic Other aftercare (1 source) buttermilk drier operator (current) use of anticoagulants; Translations: [buttermilk drier operator (current) use of anticoagulants] Episodic Other aftercare (5 sources) Long-term current use of drug therapy; Translations: [Other roasterman (current) drug therapy] Episodic Other circulatory disease (19 sources) H/O: cardiovascular disease; Translations: [Personal history of other diseases of the circulatory system] Episodic Other circulatory disease (3 sources) Personal history of other diseases of the circulatory system; Translations: [H/O atrial flutter] Episodic Other circulatory disease (4 sources) History of atrial flutter; Translations: [Personal [...] Chronic Other ear and sense organ disorders (4 sources) Sensorineural hearing loss; Translations: [Unspecified sensorineural [...] Other hereditary and degenerative nervous system conditions (10 sources) Impaired cognition; Translations: [Mild cognitive impairment, [...] chronic pain] Chronic Other non-traumatic joint disorders (5 sources) Pain in right knee; Translations: [Right [...] Classification Problem Date Documented Da te Episodic/Chronic Cardiac dysrhythmias (2 sources) Palpitations; Translations: [Palpitations] Onset: 10-15-2023 Episodic Chronic kidney disease (1 source) Chronic kidney disease Esophageal disorders (15 sources) Esophageal disorders; Translations: [Gastroesophageal reflux disease with esophagitis without hemorrhage] Immunizations and screening for infectious disease (7 sources) Encounter for immunization; Translations: [Vaccination given] Onset: 05-10-2015 Episodic Other gastrointestinal disorders (4 sources) Diarrhea, unspecified; Translations: [DIARRHEA UNSPECIFIED] Onset: 02-16-2022 Episodic Results Test Name Value Interpretation Reference Range Facility Orders Onlyon 02-05-2024 Orders Only [id number] Annelise Olson 1935 Provider Department Center 02/05/2024 LIBAN MOSQUEDA [facility] Family History Problem Relation Age of Onset Coronary artery disease Mother Coronary artery disease Father Family Status - Relation Status Age at Mother Father Normal [facility] Office Visiton 01-14-2024 Follow-up visit [id number] Annelise Olson 1935 Provider Department Center 01/14/2024 CAMACHO CARTWRIGHT ALB[facility] Family History Problem Relation Age of Onset Coronary artery disease Mother Coronary artery disease Father Family Status - Relation Status Age at Mother Father Level of Service:80803 [place] OFFICE/OUTPATIENT ESTABLISHED LOW MDM 20 MIN Normal [facility] Office Visiton 12-04-2023 Follow-up visit [id number] Annelise Olson 1935 Date Provider Department Center 12/04/2023 ALEX VALENCIA ALBERT [facility] Family History Problem Relation Age of Onset Coronary artery disease Mother Coronary artery disease Father Family Status - Relation Status Age at Mother Father Level of Service:13416 [place] OFFICE/OUTPATIENT ESTABLISHED MOD MDM 30 MIN Normal [facility] No Panel Informationon 09-01 Folate 11.40 ng/mL 8.60-58.90 [facility] Screenson 08-22-2023 Screens [id number] Normal [facility] Screens [id number] Normal [facility] Patient Educationon 08-21-19 24 Patient Education Urology Urinary Incontinence Urinary incontinence [...] nerve stimulation). ? For women, using a biomedical engineering director to prevent urine leaks. This is a [...] urine. ? (more content not included)... Normal [facility] Urology Office/Clinic Noteon 08-21-2023 Urology Office/Clinic [...] E&M of Est. Patient Low 20-29 Min 50234 2. Urge incontinence (N39.41: Urge incontinence) UA completed in office today shows no microhematuria or signs of infection. PRW prescribed myrbetriq last year. pt filled 1 mo but it didn't help and was very costly. pt not interested in trying any other meds for these sx. Ordered: Complex E&M Add on G2211 E&M of Est. Patient Low 20-29 Min 39894 3. 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 reports steady stream. no complaints at this time. Ordered: Complex E&M Add on G2211 E&M of Est. Patient Low 20-29 Min 13382 pt pleased w urinary status at this time. Offered continued scheduled follow up with our clinic vs following up PRN. Pt prefers the latter. Follow-up With When Contact Information HEATHER OQUENDO PA-C, URL Only if needed [address] [address] Business (1) Additional Instructions: PRINCESS GARCIA, Conner Simpson, KAUSHIK [facility] [address] [place] [address]- [phone] Additional Instructions: Patient Education Urinary Incontinence Problem [...] SARS-CoV-2 (COVID-19) Ad26 vaccine 05/12/2020 Recorded Normal [facility] Comment on above: Result Comment: Elec tronically Signed By: HEATHER OQUENDO PA-C\.br\Date and Time Signed: 08/21/23 13:10 EDT Office Visiton 07-12-2023 Follow-up visit [id number] Annelise Olson 1935 M Date Provider Department Center 07/12/2023 Drew-CHARITO GREY CARD [facility] Family History Problem Relation Age of Onset Coronary artery disease Mother Coronary artery disease Father Family Status - Relation Status Age at Mother Father Level of Service:93246 [place] OFFICE/OUTPATIENT ESTABLISHED MOD MDM 30 MIN Reason for Visit and Comments: Follow-up [634412] - Patient here for hospital follow up Normal [facility] Basophils Auto (Bld) [#/Vol] on 07-10-2023 Basophils (Bld) [#/Vol] 0.0 10 3/uL 0.0-0.1 [facility] Basophils/100 WBC Auto (Bld) on 07-10-2023 Basophils/100 WBC (Bld) 0.5 % 0.2-2.0 [facility] Eosinophils/100 WBC Auto (Bl d)on 07-10-2023 Eosinophils/100 WBC (Bld) 3.8 % 0.9-7.0 [facility] Erythrocyte distribution wid th Auto (RBC) [Ratio]on 07-10-2023 Erythrocyte distribution width (RBC) [Ratio] 12.5 % 11.0-15.0 [facility] Estimated glomerular filtrat ion rate (GFR) non- Americanon 07-10-2023 GFR/1.73 sq M.predicted among non-blacks MDRD (S/P/Bld) [Vol rate/Area] 52 mL/min/{1.73_m2} >=60 [facility] Globulin Calc (S) [Mass/Vol] on 07-10-2023 Globulin (S) [Mass/Vol] 3.9 g/dL [facility] Hematocrit Auto (Bld) [Volum e fraction]on 07-10-2023 Hematocrit (Bld) [Volume fraction] 45.9 % 42.0-54.0 [facility] Hemoglobin [Mass/volume] in Bloodon 07-10-2023 Hemoglobin (Bld) [Mass/Vol] 15.3 g/dL 14.0-18.0 [facility] Laboratory - Chemistry and C hemistry - challengeon 07-10-2023 Albumin [Mass/Vol] 3.4 g/dL 3.4-5.0 [facility] ALP [Catalytic activity/Vol] 91 U/L 46-116 [facility] ALT [Catalytic activity/Vol] 15 U/L 16-63 [facility] AST [Catalytic activity/Vol] 25 U/L 15-37 [facility] Bilirubin [Mass/Vol] 1.1 mg/dL 0.2-1.0 [facility] Calcium [Mass/Vol] 8.8 mg/dL 8.5-10.1 [facility] Chloride [Moles/Vol] 104 mmol/L 98-107 [facility] CO2 [Moles/Vol] 25.5 mmol/L 21.0-32.0 [facility] Creatinine [Mass/Vol] 1.31 mg/dL 0.70-1.30 [facility] GFR/1.73 sq M.predicted MDRD (S/P/Bld) [Vol rate/Area] mL/min/{1.73_m2} >=60 [facility] Glucose [Mass/Vol] 164 mg/dL 74-106 [facility] Natriuretic peptide B (Bld) [Mass/Vol] 436.0 pg/mL <=1800.0 [facility] Potassium [Moles/Vol] 3.8 mmol/L 3.5-5.1 [facility] Protein [Mass/Vol] 7.3 g/dL 6.4-8.2 [facility] Sodium [Moles/Vol] 138 mmol/L 136-145 [facility] Urea nitrogen [Mass/Vol] 18.0 mg/dL 7.0-18.0 [facility] Urea nitrogen/Creatinin e [Mass ratio] 13.7 mg/mg [facility] Laboratory - Hematology and Cell countson 07-10-2023 Immature granulocytes/100 WBC (Bld) 0.3 % 0.0-0.5 [facility] Leukocytes [#/volume] correc analia for nucleated erythrocytes in Blood by Automated counon 07-10-2023 WBC corrected for nucl RBC Auto (Bld) [#/Vol] 6.3 10 3/uL 4.0-11.0 [facility] Lymphocytes Auto (Bld) [#/Vo l]on 07-10-2023 Lymphocytes (Bld) [#/Vol] 1.4 10 3/uL 1.2-3.8 [facility] Lymphocytes/100 WBC Auto (Bl d)on 07-10-2023 Lymphocytes/100 WBC (Bld) 22.1 % 20.5-60.0 [facility] MCH Auto (RBC) [Entitic mass ]on 07-10-2023 MCH (RBC) [Entitic mass] 34.5 pg 25.9-34.0 [facility] MCHC Auto (RBC) [Mass/Vol]on 07-10-2023 MCHC (RBC) [Mass/Vol] 33.3 g/dL 29.9-35.2 [facility] MCV Auto (RBC) [Entitic vol] on 07-10-2023 MCV (RBC) [Entitic vol] 103.6 fL 80.0-94.0 [facility] Monocytes Auto (Bld) [#/Vol] on 07-10-2023 Monocytes (Bld) [#/Vol] 0.5 10 3/uL 0.3-0.8 [facility] Monocytes/100 WBC Auto (Bld) on 07-10-2023 Monocytes/100 WBC (Bld) 8.1 % 1.7-12.0 [facility] Neutrophils Auto (Bld) [#/Vo l]on 07-10-2023 Neutrophils (Bld) [#/Vol] 4.1 10 3/uL 1.4-6.5 [facility] Neutrophils/100 WBC Auto (Bl d)on 07-10-2023 Neutrophils/100 WBC (Bld) 65.2 % 43.0-75.0 [facility] No Panel Informationon 07-09 Troponin I High Sensitivity 36.4 pg/mL 4.0-76.1 [facility] Comment on above: CUT-OFF POINTS HAVE BEEN ESTABLISHED BASED ON THE FOURTHIVERSAL DEFINITION OF MYOCARDIAL INFARCTION. THE UPPERREFERENCE LIMIT (URL) OF TROPONIN, DEFINED THE 99THPERCENTILE OF cTnI DISTRIBUTION IN A REFERENCE POPULATION,HAS BEEN CONFIRMED THE DECISION THRESHOLD FOR MIDIAGNOSIS.99TH PERCENTILE = 76.2 PG/MLNOTE: HIGH-SENSITIVITY TROPONIN ASSAY IS NOT INTENDED TO BEUSED IN ISOLATION BUT SHOULD BE INTERPRETED IN CONJUNCTIONWITH OTHER DIAGNOSTIC AND CLINICAL INFORMATION. Eosinophils # (Auto) 0.2 10 3/uL 0.0-0.7 [facility] Immature Granulocyte # (Auto) 0.02 10 3/uL 0.00-0.03 [facility] Platelet mean volume Auto (B ld) [Entitic vol]on 07-10-2023 Platelet mean volume (Bld) [Entitic vol] 9.8 fL 9.5-13.5 [facility] Platelets Auto (Bld) [#/Vol] on 07-10-2023 Platelets (Bld) [#/Vol] 157 10 3/uL 150-450 [facility] RBC Auto (Bld) [#/Vol]on RBC (Bld) [#/Vol] 4.43 10 6/uL 4.70-6.10 [facility] Serum or plasma albumin/glob ulin mass ratioon 07-10-2023 Albumin/Globulin [Mass ratio] 0.9 {ratio} [facility] Serum or plasma anion gap de terminationon 07-10-2023 Anion gap [Moles/Vol] 12.3 mmol/L [facility] Office Visiton 05-14-2023 Follow-up visit [id number] Annelise Olson 1935 M Date Provider Department Center 05/14/2023 CAMACHO CARTWRIGHT [facility] Family History Problem Relation Age of Onset Coronary artery disease Mother Coronary artery disease Father Family Status - Relation Status Age at Mother Father Level of Service:30318 [place] OFFICE/OUTPATIENT ESTABLISHED LOW MDM 20 MIN Normal [facility] CBC AUTO DIFFon 08-14-2022 BASO # 0.0 103/ul Normal 0.0-0.1 [facility] Comment on above: Performed By: #### A LT, LIPID, BMP #### [facility] [address] [place] [address] Dr. Kaleb Desir Basophils/100 WBC (Bld) 0.5 % Normal 0.2-2.[address] [facility] Comment on above: Performed By: #### A LT, LIPID, BMP #### [facility] [address] [place] [address] Dr. Kaleb Desir EO # 0.1 103/ul Normal 0.0-0.[address] [facility] Comment on above: Performed By: #### A LT, LIPID, BMP #### [facility] [address] [place] [address] Dr. Kaleb Desir Eosinophils/100 WBC (Bld) 1.2 % Normal 0.9-7.0 [facility] Comment on above: Performed By: #### A LT, LIPID, BMP #### [facility] [address] [address] [address] Kaleb Desir Erythrocyte distribution width (RBC) [Ratio] 12.9 % Normal 11.0-15.0 [facility] Comment on above: Performed By: #### A LT, LIPID, BMP #### [facility] [address] [address] [address] Kaleb Desir Hematocrit (Bld) [Volume fraction] 38.6 % Critically low 42.0-54.0 [facility] Comment on above: Performed By: #### A LT, LIPID, BMP #### [facility] [address] [place] [address] Dr. Kaleb Desir Hemoglobin (Bld) [Mass/Vol] 13.1 g/dL Critically low 14.0-18.0 [facility] Comment on above: Performed By: #### A LT, LIPID, BMP #### [facility] [address] [place] [address] Dr. Kaleb Desir IG # 0.03 10e3/ul Normal 0.00-0.03 [facility] Comment on above: Performed By: #### A LT, LIPID, BMP #### [facility] [address] [address] [address] Kaleb Desir IG % 0.3 % Normal 0.0-0.5 [facility] Comment on above: Performed By: #### A LT, LIPID, BMP #### [facility] [address] [address] [address] Kaleb Desir LYMPH # 0.9 103/ul Critically low 1.2-3.8 [facility] Comment on above: Performed By: #### A LT, LIPID, BMP #### [facility] [address] [address] [address] Kaleb Desir Lymphocytes/100 WBC (Bld) 10.3 % Critically low 20.5-60.0 [facility] Comment on above: Performed By: #### A LT, LIPID, BMP #### [facility] [address] [address] [address] Kaleb Desir MANUAL DIFF REQ NO Normal [facility] Comment on above: Performed By: #### A LT, LIPID, BMP #### [facility] [address] [address] [address] Kaleb Desir MCH (RBC) [Entitic mass] 34.0 pg Normal 25.9-34.0 [facility] Comment on above: Performed By: #### A LT, LIPID, BMP #### [facility] [address] [place] [address] Dr. Kaleb Desir MCHC (RBC) [Mass/Vol] 33.9 g/dL Normal 29.9-35.[address] [facility] Comment on above: Performed By: #### A LT, LIPID, BMP #### [facility] [address] [place] [address] Dr. Kaleb Desir MCV (RBC) [Entitic vol] 100.3 fL Critically high 80.0-94.0 [facility] Comment on above: Performed By: #### A LT, LIPID, BMP #### [facility] [address] [place] [address] Dr. Kaleb Desir MONO # 0.8 103/ul Normal 0.3-0.[address] [facility] Comment on above: Performed By: #### A LT, LIPID, BMP #### [facility] [address] [place] [address] Dr. Kaleb Desir Monocytes/100 WBC (Bld) 9.2 % Normal 1.7-12.0 [facility] Comment on above: Performed By: #### A LT, LIPID, BMP #### [facility] [address] [place] [address] Dr. Kaleb Desir NEUT # 7.0 103/ul Critically high 1.4-6.5 [facility] Comment on above: Performed By: #### A LT, LIPID, BMP #### [facility] [address] [place] [address] Dr. Kaleb Desir Neutrophils/100 WBC (Bld) 78.5 % Critically high 43.0-75.0 [facility] Comment on above: Performed By: #### A LT, LIPID, BMP #### [facility] [address] [place], [place] [address] Dr. Kaleb Desir Platelet mean volume (Bld) [Entitic vol] 9.0 fL Critically low 9.5-13.[address] [facility] Comment on above: Performed By: #### A LT, LIPID, BMP #### [facility] [address] [place], [place] [address] Dr. Kaleb Desir PLT 164 103/ul Normal 150-[address] [facility] Comment on above: Performed By: #### A LT, LIPID, BMP #### [facility] [address] [place], [place] [address] Dr. Kaleb Desir RBC 3.85 106/ul Critically low 4.70-6.10 [facility] Comment on above: Performed By: #### A LT, LIPID, BMP #### [facility] [address] [place], [place] [address] Dr. Kaleb Desir WBC 8.9 103/ul Normal 4.0-11.[address] [facility] Comment on above: Performed By: #### A LT, LIPID, BMP #### [facility] [address] [place], [place] [address] ABD/PELVIS WO CONon [...] Date: 2022-08-14 03:24 Normal [address] [facility] ER URINE PROFILEon 3 Bilirubin Ql (U) Negative Normal NEGATIVE [facility] Comment on above: Performed By: #### A LT, LIPID, BMP #### [facility] [address] [place] [address] Dr. Kaleb Desir Clarity (U) CLEAR Normal CLEAR [facility] Comment on above: Performed By: #### A LT, LIPID, BMP #### [facility] [address] [place] [address] Dr. Kaleb Desir Color (U) YELLOW Normal YELLOW [facility] Comment on above: Performed By: #### A LT, LIPID, BMP #### [facility] [address] [address] [address] Kaleb Desir ERUAHD A micrscopic examina tion will be performed if indicated. Normal [facility] Comment on above: Performed By: #### A LT, LIPID, BMP #### [facility] [address] [place] [address] Dr. Kaleb Desir Glucose Ql (U) Negative Normal NEGATIVE [facility] Comment on above: Performed By: #### A LT, LIPID, BMP #### [facility] [address] [place] [address] Dr. Kaleb Desir Hemoglobin Ql (U) TRACE-INTACT Abnormal NEGATIVE [facility] Comment on above: Performed By: #### A LT, LIPID, BMP #### [facility] [address] [place] [address] Dr. Kaleb Desir Ketones Ql (U) TRACE Abnormal NEGATIVE [facility] Comment on above: Performed By: #### A LT, LIPID, BMP #### [facility] [address] [address] [address] Kaleb Desir LEUKOCYTES Negative Normal NEGATIVE [facility] Comment on above: Performed By: #### A LT, LIPID, BMP #### [facility] [address] [place] [address] Dr. Kaleb Desir Nitrite Ql (U) Negative Normal NEGATIVE [facility] Comment on above: Performed By: #### A LT, LIPID, BMP #### [facility] [address] [place] [address] Dr. Kaleb Desir pH (U) 5.5 [pH] Normal 5-9 [facility] Comment on above: Performed By: #### A LT, LIPID, BMP #### [facility] [address] [place] [address] Dr. Kaleb Desir SPEC GRAVITY >=1.030 Abnormal 1.005-<=1.0 25 [facility] Comment on above: Performed By: #### A LT, LIPID, BMP #### [facility] [address] [place] [address] Dr. Kaleb Desir UA PROTEIN Negative Normal NEGATIVE/ TRACE The [facility] Comment on above: Performed By: #### A LT, LIPID, BMP #### [facility] [address] [place] [address] Dr. Kaleb Desir UR MICRO IND NOT INDICATED Normal [facility] Comment on above: Performed By: #### A LT, LIPID, BMP #### [facility] [address] [place] [address] Dr. Kaleb Desir Urobilinogen Qn (U) 0.2 {Silver'U}/dL Normal 0.2 - 1.0 [facility] Comment on above: Performed By: #### A LT, LIPID, BMP #### [facility] [address] [place] [address] Dr. Kaleb Desir LIPASEon 08-14-2022 Lipase [Catalytic activity/Vol] 91.0 U/L Normal 73.0-393.0 [facility] Comment on above: Performed By: #### C MP, LIPA #### [facility] [address] [place] [address] Dr. Kaleb Desir PROF 14(COMP METB)on 023 Albumin [Mass/Vol] 3.2 g/dL Critically low 3.4-5.0 Th [facility] Comment on above: Performed By: #### A LT, LIPID, BMP #### [facility] [address] [place] [address] Dr. Kaleb Desir Albumin/Globulin [Mass ratio] 1.0 {ratio} Normal [facility] Comment on above: Performed By: #### A LT, LIPID, BMP #### [facility] [address] [place] [address] Dr. Kaleb Desir ALP [Catalytic activity/Vol] 78 U/L Normal 46-116 [facility] Comment on above: Performed By: #### A LT, LIPID, BMP #### [facility] [address] [place] [address] Dr. Kaleb Desir ALT [Catalytic activity/Vol] 20 U/L Normal 16-63 [facility] Comment on above: Performed By: #### A LT, LIPID, BMP #### [facility] [address] [place] [address] Dr. Kaleb Desir Anion gap [Moles/Vol] 12.6 mmol/L Normal [facility] Comment on above: Performed By: #### A LT, LIPID, BMP #### [facility] [address] [place] [address] Dr. Kaleb Desir AST [Catalytic activity/Vol] 21 U/L Normal 15-37 [facility] Comment on above: Performed By: #### A LT, LIPID, BMP #### [facility] [address] [place] [address] Dr. Kaleb Desir Bilirubin [Mass/Vol] 0.8 mg/dL Normal 0.2-1.0 [facility] Comment on above: Performed By: #### A LT, LIPID, BMP #### [facility] [address] [place] [address] Dr. Kaleb Desir Calcium [Mass/Vol] 8.5 mg/dL Normal 8.5-10.1 [facility] Comment on above: Performed By: #### A LT, LIPID, BMP #### [facility] [address] [place] [address] Dr. Kaleb Desir Chloride [Moles/Vol] 105 mmol/L Normal 98-[address] [facility] Comment on above: Performed By: #### A LT, LIPID, BMP #### [facility] [address] [place] [address] Dr. Kaleb Desir CO2 [Moles/Vol] 24.4 mmol/L Normal 21.0-32.0 [facility] Comment on above: Performed By: #### A LT, LIPID, BMP #### [facility] [address] [place] [address] Dr. Kaleb Desir Creatinine [Mass/Vol] 1.13 mg/dL Normal 0.70-1.30 [facility] Comment on above: Performed By: #### A LT, LIPID, BMP #### [facility] [address] [place] [address] Dr. Kaleb Desir EGFR-AF PANAMANIAN >60 Normal >=60 [facility] Comment on above: Performed By: #### A LT, LIPID, BMP #### [facility] [address] [place] [address] Dr. Kaleb Desir EGFR-NON AF PANAMANIAN >60 Normal >=60 [facility] Comment on above: Performed By: #### A LT, LIPID, BMP #### [facility] [address] [place] [address] Dr. Kaleb Desir Globulin (S) [Mass/Vol] 3.1 g/dL Normal [facility] Comment on above: Performed By: #### A LT, LIPID, BMP #### [facility] [address] [place] [address] Dr. Kaleb Desir Glucose [Mass/Vol] 129 mg/dL Critically high 74-106 [facility] Comment on above: Performed By: #### A LT, LIPID, BMP #### [facility] [address] [place] [address] Dr. Kaleb Desir Potassium [Moles/Vol] 4.0 mmol/L Normal 3.5-5.1 [facility] Comment on above: Performed By: #### A LT, LIPID, BMP #### [facility] [address] [place] [address] Dr. Kaleb Desir Protein [Mass/Vol] 6.3 g/dL Critically low 6.4-8.2 Th [facility] Comment on above: Performed By: #### A LT, LIPID, BMP #### [facility] [address] [place] [address] Dr. Kaleb Desir Sodium [Moles/Vol] 138 mmol/L Normal 136-145 [facility] Comment on above: Performed By: #### A LT, LIPID, BMP #### [facility] [address] [place] [address] Dr. Kaleb Desir Urea nitrogen [Mass/Vol] 15.0 mg/dL Normal 7.0-18.0 [facility] Comment on above: Performed By: #### A LT, LIPID, BMP #### [facility] [address] [place] [address] Dr. Kaleb Desir Urea nitrogen/Creatinin e [Mass ratio] 13.3 mg/mg Normal [facility] Comment on above: Performed By: #### A LT, LIPID, BMP #### [facility] [address] [place] [address] CSPINE WO CONon [...] Date: 2022-06-11 21:51 Normal [facility] CT HEAD WO CONon 06-11-2022 CT HEAD [...] EDUARDO FOLEYING Date: 2022-06-11 21:57 Normal [address] [facility] STOOL CULTUREon 02-20-2022 Campylobacter Culture Final report Normal [facility] Comment on above: Performed By: #### C XSTOOL #### [facility] [address] [address] [address] Kaleb Desir E coli Shiga Toxin EIA Negative Normal Negative [facility] Comment on above: Performed By: #### C XSTOOL #### [facility] [address] [address] [address] Kaleb Desir Result 1 Comment Normal [facility] Comment on above: Result Comment: No S almonella or Shigella recovered. Performed By: #### C XSTOOL #### [facility] [address] [address] [address] Kaleb Desir Result Comment: No C ampylobacter species isolated. Salmonella/Shigell a Screen Final report Normal [facility] Comment on above: Performed By: #### C XSTOOL #### [facility] [address] [address] [address] Kaleb Desir C. DIFF PCRon 02-16-2022 C. DIFFICILE PCR Negative Normal NEGATIVE [facility] Comment on above: Performed By: #### C DIFPOC #### [facility] [address] [address] [address] Kaleb Desir CBC AUTO DIFFon 02-16-2022 BASO # 0.0 103/ul Normal 0.0-0.[address] [facility] Comment on above: Performed By: #### C BC #### [facility] [address] [address] [address] Kaleb Desir Basophils/100 WBC (Bld) 0.6 % Normal 0.2-2.0 [facility] Comment on above: Performed By: #### C BC #### [facility] [address] [place] [address] Dr. Kaleb Desir EO # 0.3 103/ul Normal 0.0-0.[address] [facility] Comment on above: Performed By: #### C BC #### [facility] [address] [place] [address] Dr. Kaleb Desir Eosinophils/100 WBC (Bld) 4.0 % Normal 0.9-7.[address] [facility] Comment on above: Performed By: #### C BC #### [facility] [address] [place] [address] Dr. Kaleb Desir Erythrocyte distribution width (RBC) [Ratio] 12.4 % Normal 11.0-15.[address] [facility] Comment on above: Performed By: #### C BC #### [facility] [address] [place] [address] Dr. Kaleb Desir Hematocrit (Bld) [Volume fraction] 40.5 % Critically low 42.0-54.0 [facility] Comment on above: Performed By: #### C BC #### [facility] [address] [place] [address] Dr. Kaleb Desir Hemoglobin (Bld) [Mass/Vol] 13.7 g/dL Critically low 14.0-18.0 [facility] Comment on above: Performed By: #### C BC #### [facility] [address] [place] [address] Dr. Kaleb Desir IG # 0.01 10e3/ul Normal 0.00-0.[address] [facility] Comment on above: Performed By: #### C BC #### [facility] [address] [place] [address] Dr. Kaleb Desir IG % 0.1 % Normal 0.0-0.[address] [facility] Comment on above: Performed By: #### C BC #### [facility] [address] [place] [address] Dr. Kaleb Desir LYMPH # 1.7 103/ul Normal 1.2-3.[address] [facility] Comment on above: Performed By: #### C BC #### [facility] [address] [place] [address] Dr. Kaleb Desir Lymphocytes/100 WBC (Bld) 25.5 % Normal 20.5-60.0 [facility] Comment on above: Performed By: #### C BC #### [facility] [address] [place] [address] Dr. Kaleb Desir MANUAL DIFF REQ NO Normal [facility] Comment on above: Performed By: #### C BC #### [facility] [address] [place] [address] Dr. Kaleb Desir MCH (RBC) [Entitic mass] 34.4 pg Critically high 25.9-34.[address] [facility] Comment on above: Performed By: #### C BC #### [facility] [address] [place] [address] Dr. Kaleb Desir MCHC (RBC) [Mass/Vol] 33.8 g/dL Normal 29.9-35.[address] [facility] Comment on above: Performed By: #### C BC #### [facility] [address] [place] [address] Dr. Kaleb Desir MCV (RBC) [Entitic vol] 101.8 fL Critically high 80.0-94.0 [facility] Comment on above: Performed By: #### C BC #### [facility] [address] [place] [address] Dr. Kaleb Desir MONO # 0.9 103/ul Critically high 0.3-0.8 [facility] Comment on above: Performed By: #### C BC #### [facility] [address] [place] [address] Dr. Kaleb Desir Monocytes/100 WBC (Bld) 12.4 % Critically high 1.7-12.[address] [facility] Comment on above: Performed By: #### C BC #### [facility] [address] [place] [address] Dr. Kaleb Desir NEUT # 3.9 103/ul Normal 1.4-6.[address] [facility] Comment on above: Performed By: #### C BC #### [facility] [address] [place] [address] Dr. Kaleb Desir Neutrophils/100 WBC (Bld) 57.4 % Normal 43.0-75.0 [facility] Comment on above: Performed By: #### C BC #### [facility] [address] [place] [address] Dr. Kaleb Desir Platelet mean volume (Bld) [Entitic vol] 9.0 fL Critically low 9.5-13.5 [facility] Comment on above: Performed By: #### C BC #### [facility] [address] [place] [address] Dr. Kaleb Desir PLT 181 103/ul Normal 150-450 [facility] Comment on above: Performed By: #### C BC #### [facility] [address] [place] [address] Dr. Kaleb Desir RBC 3.98 106/ul Critically low 4.70-6.10 [facility] Comment on above: Performed By: #### C BC #### [facility] [address] [place] [address] Dr. Kaleb Desir WBC 6.8 103/ul Normal 4.0-11.[address] [facility] Comment on above: Performed By: #### C BC #### [facility] [address] [place] [address] Dr. Kaleb Desir PROF CHEM 8 (BAS METB)on Anion gap [Moles/Vol] 11.0 mmol/L Normal [facility] Comment on above: Performed By: #### A LT, LIPID, BMP #### [facility] [address] [place] [address] Dr. Kaleb Desir Calcium [Mass/Vol] 8.9 mg/dL Normal 8.5-10.1 [facility] Comment on above: Performed By: #### A LT, LIPID, BMP #### [facility] [address] [place] [address] Dr. Kaleb Desir Chloride [Moles/Vol] 105 mmol/L Normal 98-[address] [facility] Comment on above: Performed By: #### A LT, LIPID, BMP #### [facility] [address] [address] [address] Kaleb Desir CO2 [Moles/Vol] 26.6 mmol/L Normal 21.0-32.0 [facility] Comment on above: Performed By: #### A LT, LIPID, BMP #### [facility] [address] [address] [address] Kaleb Desir Creatinine [Mass/Vol] 1.02 mg/dL Normal 0.70-1.[address] [facility] Comment on above: Performed By: #### A LT, LIPID, BMP #### [facility] [address] [address] [address] Kaleb Desir EGFR-AF PANAMANIAN >60 Normal >=60 [facility] Comment on above: Performed By: #### A LT, LIPID, BMP #### [facility] [address] [address] [address] Kaleb Desir EGFR-NON AF PANAMANIAN >60 Normal >=[address] [facility] Comment on above: Performed By: #### A LT, LIPID, BMP #### [facility] [address] [address] [address] Kaleb Desir Glucose [Mass/Vol] 102 mg/dL Normal 74-106 [facility] Comment on above: Performed By: #### A LT, LIPID, BMP #### [facility] [address] [address] [address] Kaleb Desir Potassium [Moles/Vol] 3.6 mmol/L Normal 3.5-5.[address] [facility] Comment on above: Performed By: #### A LT, LIPID, BMP #### [facility] [address] [address] [address] Kaleb Desir Sodium [Moles/Vol] 139 mmol/L Normal 136-145 [facility] Comment on above: Performed By: #### A LT, LIPID, BMP #### [facility] [address] [place] [address] Dr. Kaleb Desir Urea nitrogen [Mass/Vol] 14.0 mg/dL Normal 7.0-18.[address] [facility] Comment on above: Performed By: #### A LT, LIPID, BMP #### [facility] [address] [place] [address] Dr. Kaleb Desir Urea nitrogen/Creatinin e [Mass ratio] 13.7 mg/mg Normal [facility] Comment on above: Performed By: #### A LT, LIPID, BMP #### [facility] [address] [place] [address] Dr. Kaleb Desir CBC AUTO DIFFon 01-19-2022 BASO # 0.1 103/ul Normal 0.0-0.1 [facility] Comment on above: Performed By: #### A LT, LIPID, BMP #### [facility] [address] [place] [address] Dr. Kaleb Desir Basophils/100 WBC (Bld) 0.8 % Normal 0.2-2.0 [facility] Comment on above: Performed By: #### A LT, LIPID, BMP #### [facility] [address] [place] [address] Dr. Kaleb Desir EO # 0.4 103/ul Normal 0.0-0.7 [facility] Comment on above: Performed By: #### A LT, LIPID, BMP #### [facility] [address] [place] [address] Dr. Kaleb Desir Eosinophils/100 WBC (Bld) 5.8 % Normal 0.9-7.0 [facility] Comment on above: Performed By: #### A LT, LIPID, BMP #### [facility] [address] [place] [address] Dr. Kaleb Desir Erythrocyte distribution width (RBC) [Ratio] 12.2 % Normal 11.0-15.0 [facility] Comment on above: Performed By: #### A LT, LIPID, BMP #### [facility] [address] [place] [address] Dr. Kaleb Desir Hematocrit (Bld) [Volume fraction] 41.8 % Critically low 42.0-54.0 [facility] Comment on above: Performed By: #### A LT, LIPID, BMP #### [facility] [address] [place] [address] Dr. Kaleb Desir Hemoglobin (Bld) [Mass/Vol] 14.0 g/dL Normal 14.0-18.0 [facility] Comment on above: Performed By: #### A LT, LIPID, BMP #### [facility] [address] [place] [address] Dr. Kaleb Desir IG # 0.01 10e3/ul Normal 0.00-0.03 [facility] Comment on above: Performed By: #### A LT, LIPID, BMP #### [facility] [address] [place] [address] Dr. Kaleb Desir IG % 0.2 % Normal 0.0-0.5 [facility] Comment on above: Performed By: #### A LT, LIPID, BMP #### [facility] [address] [place] [address] Dr. Kaleb Desir LYMPH # 1.9 103/ul Normal 1.2-3.8 [facility] Comment on above: Performed By: #### A LT, LIPID, BMP #### [facility] [address] [place] [address] Dr. Kaleb Desir Lymphocytes/100 WBC (Bld) 31.7 % Normal 20.5-60.0 [facility] Comment on above: Performed By: #### A LT, LIPID, BMP #### [facility] [address] [place] [address] Dr. Kaleb Desir MANUAL DIFF REQ NO Normal [facility] Comment on above: Performed By: #### A LT, LIPID, BMP #### [facility] [address] [place] [address] Dr. Kaleb eDsir MCH (RBC) [Entitic mass] 34.1 pg Critically high 25.9-34.0 [facility] Comment on above: Performed By: #### A LT, LIPID, BMP #### [facility] [address] [place] [address] Dr. Kaleb Desir MCHC (RBC) [Mass/Vol] 33.5 g/dL Normal 29.9-35.2 [facility] Comment on above: Performed By: #### A LT, LIPID, BMP #### [facility] [address] [place] [address] Dr. Kaleb Desir MCV (RBC) [Entitic vol] 101.7 fL Critically high 80.0-94.0 [facility] Comment on above: Performed By: #### A LT, LIPID, BMP #### [facility] [address] [place] [address] Dr. Kaleb Desir MONO # 0.8 103/ul Normal 0.3-0.[address] [facility] Comment on above: Performed By: #### A LT, LIPID, BMP #### [facility] [address] [place] [address] Dr. Kaleb Desir Monocytes/100 WBC (Bld) 13.8 % Critically high 1.7-12.0 [facility] Comment on above: Performed By: #### A LT, LIPID, BMP #### [facility] [address] [place] [address] Dr. Kaleb Desir NEUT # 2.9 103/ul Normal 1.4-6.5 [facility] Comment on above: Performed By: #### A LT, LIPID, BMP #### [facility] [address] [place] [address] Dr. Kaleb Desir Neutrophils/100 WBC (Bld) 47.7 % Normal 43.0-75.0 [facility] Comment on above: Performed By: #### A LT, LIPID, BMP #### [facility] [address] [place] [address] Dr. Kaleb Desir Platelet mean volume (Bld) [Entitic vol] 8.9 fL Critically low 9.5-13.[address] [facility] Comment on above: Performed By: #### A LT, LIPID, BMP #### [facility] [address] [place] [address] Dr. Kaleb Desir PLT 174 103/ul Normal 150-[address] [facility] Comment on above: Performed By: #### A LT, LIPID, BMP #### [facility] [address] [place] [address] Dr. Kaleb Desir RBC 4.11 106/ul Critically low 4.70-6.10 [facility] Comment on above: Performed By: #### A LT, LIPID, BMP #### [facility] [address] [address] [address] Kaleb Desir WBC 6.0 103/ul Normal 4.0-11.0 [facility] Comment on above: Performed By: #### A LT, LIPID, BMP #### [facility] [address] [place] [address] Dr. Kaleb Desir LIPID PROFILEon 01-19-2022 CHOL-HDL RATIO NORM SEE BELOW Normal [facility] Comment on above: Result Comment: 3.3 - 4.4 LOW RISK 4.4 - 7.1 AVERAGE RISK 7.1 - 11.0 MODERATE RISK >11.0 HIGH RISK Performed By: #### A LT, LIPID, BMP #### [facility] [address] [place] [address] Dr. Kaleb Desir Cholesterol [Mass/Vol] 137 mg/dL Normal <=200 [facility] Comment on above: Performed By: #### A LT, LIPID, BMP #### [facility] [address] [place] [address] Dr. Kaleb Desir Cholesterol in HDL [Mass/Vol] 58 mg/dL Normal 40-60 [facility] Comment on above: Performed By: #### A LT, LIPID, BMP #### [facility] [address] [place] [address] Dr. Kaleb Desir Cholesterol in LDL [Mass/Vol] 68.6 mg/dL Normal [facility] Comment on above: Performed By: #### A LT, LIPID, BMP #### [facility] [address] [place] [address] Dr. Kaleb Desir Cholesterol.total/ Cholesterol in HDL [Mass ratio] 2.4 {ratio} Normal [facility] Comment on above: Performed By: #### A LT, LIPID, BMP #### [facility] [address] [place] [address] Dr. Kaleb Desir HDL NORMAL > or = 60 mg/dl - LO W CARDIOVASCULAR RISK <40 mg/dl - HIGH CARDIOVASCULAR RISK Normal [facility] Comment on above: Performed By: #### A LT, LIPID, BMP #### [facility] [address] [place] [address] Dr. Kaleb Desir LDL CALC NORMAL SEE BELOW Normal [facility] Comment on above: Result Comment: <100 mg/dl OPTIMAL 100 - 129 mg/dl NEAR OR ABOVE OPTIMAL 130 - 159 mg/dl BORDERLINE HIGH 160 - 189 mg/dl HIGH >190 mg/dl VERY HIGH Performed By: #### A LT, LIPID, BMP #### [facility] [address] [address] [address] Kaleb Desir Triglyceride [Mass/Vol] 52 mg/dL Normal <=150 [facility] Comment on above: Performed By: #### A LT, LIPID, BMP #### [facility] [address] [place] [address] Dr. Kaleb Desir VLDL CALC 10.4 mg/dL Normal [facility] Comment on above: Performed By: #### A LT, LIPID, BMP #### [facility] [address] [place] [address] Dr. Kaleb Desir PROF CHEM 8 (BAS METB)on Anion gap [Moles/Vol] 13.1 mmol/L Normal [facility] Comment on above: Performed By: #### A LT, LIPID, BMP #### [facility] [address] [place] [address] Dr. Kaleb Desir Calcium [Mass/Vol] 8.9 mg/dL Normal 8.5-10.1 [facility] Comment on above: Performed By: #### A LT, LIPID, BMP #### [facility] [address] [place] [address] Dr. Kaleb Desir Chloride [Moles/Vol] 105 mmol/L Normal 98-[address] [facility] Comment on above: Performed By: #### A LT, LIPID, BMP #### [facility] [address] [place] [address] Dr. Kaleb Desir CO2 [Moles/Vol] 25.0 mmol/L Normal 21.0-32.0 [facility] Comment on above: Performed By: #### A LT, LIPID, BMP #### [facility] [address] [place] [address] Dr. Kaleb Desir Creatinine [Mass/Vol] 1.17 mg/dL Normal 0.70-1.30 [facility] Comment on above: Performed By: #### A LT, LIPID, BMP #### [facility] [address] [place] [address] Dr. Kaleb Desir EGFR-AF PANAMANIAN >60 Normal >=60 [facility] Comment on above: Performed By: #### A LT, LIPID, BMP #### [facility] [address] [address] [address] Kaleb Desir EGFR-NON AF PANAMANIAN 59 mL/min/1.73m2 Critically low >=[address] [facility] Comment on above: Performed By: #### A LT, LIPID, BMP #### [facility] [address] [place] [address] Dr. Kaleb Desir Glucose [Mass/Vol] 103 mg/dL Normal 74-106 [facility] Comment on above: Performed By: #### A LT, LIPID, BMP #### [facility] [address] [place] [address] Dr. Kaleb Desir Potassium [Moles/Vol] 4.1 mmol/L Normal 3.5-5.1 [facility] Comment on above: Performed By: #### A LT, LIPID, BMP #### [facility] [address] [place] [address] Dr. Kaleb Desir Sodium [Moles/Vol] 139 mmol/L Normal 136-145 [facility] Comment on above: Performed By: #### A LT, LIPID, BMP #### [facility] [address] [place] [address] Dr. Kaleb Desir Urea nitrogen [Mass/Vol] 18.0 mg/dL Normal 7.0-18.0 [facility] Comment on above: Performed By: #### A LT, LIPID, BMP #### [facility] [address] [place] [address] Dr. Kaleb Desir Urea nitrogen/Creatinin e [Mass ratio] 15.4 mg/mg Normal [facility] Comment on above: Performed By: #### A LT, LIPID, BMP #### [facility] [address] [place], [place] [address] Dr. [address] [facility] 01-19-2022 ALT [Catalytic activity/Vol] 21 U/L Normal 16-[address] [facility] Comment on above: Performed By: #### A LT, LIPID, BMP #### [facility] [address] [place], [place] [address] Dr. Kaleb Desir Cardiovascular Lab Reporton 06-13-2020 Cardiovascular Lab Report [facility] Patient Name: Annelise Olson MR #: [id number] [facility] Physician: Camacho Singer MD Service Date: 06/13/2020 Department of Birthdate: 1935 Medicine Room #: Division of Cardiology Adult Cardiovascular Services [address] [address] Cardiovascular Laboratory Report ATRIAL FLUTTER ABLATION AND [...] the sternum on the left using the [employer] tool. The loop recorder was then injected [...] complicati (more content not included)... Normal [facility] Vital Signs Date Time Vital Sign Value Performing Clinician Facility 10-17-2023 10:39-0400 Body height 172.72 cm [facility] 10-17-2023 10:39-0400 Body mass index (BMI) [Ratio] 21.4 kg/m2 [facility] 10-17-2023 10:39-0400 Body weight 64.12 kg [facility] 10-17-2023 10:39-0400 Diastolic blood pressure 56 mm[Hg] [facility] 10-17-2023 10:39-0400 Heart rate 63 /min [facility] 10-17-2023 10:39-0400 Respiratory rate 12 /min [facility] 10-17-2023 10:39-0400 Systolic blood pressure 133 mm[Hg] [facility] 08-20-2023 10:13-0400 Blood Pressure Location HEATHER OQUENDO [facility] 08-20-2023 10:13-0400 Body temperature 97.34 [degF] HEATHER OQUENDO [facility] 08-20-2023 10:13-0400 Diastolic blood pressure 57 mm[Hg] HEATHER OQUENDO [facility] 08-20-2023 10:13-0400 Heart rate 64 /min HEATHER OQUENDO [facility] 08-20-2023 10:13-0400 Respiratory rate 19 /min HEATHER AZRA [facility] 08-20-2023 10:13-0400 Systolic blood pressure 105 mm[Hg] HEATHER AZRA [facility] 06-20-2023 10:42-0500 Body height 172.72 cm [facility] 06-20-2023 10:42-0500 Body mass index (BMI) [Ratio] 22 kg/m2 [facility] 06-20-2023 10:42-0500 Body weight 65.77 kg [facility] 06-20-2023 10:42-0500 Diastolic blood pressure 66 mm[Hg] [facility] 06-20-2023 10:42-0500 Heart rate 103 /min [facility] 06-20-2023 10:42-0500 Respiratory rate 20 /min [facility] 06-20-2023 10:42-0500 Systolic blood pressure 102 mm[Hg] [facility] 05-09-2023 11:00-0500 Body height 172.72 cm Miguel Ball Other [facility] 05-09-2023 11:00-0500 Body mass index (BMI) [Ratio] 21.98 kg/m2 Miguel Ball Other [facility] Other 05-09-2023 11:00-0500 Body weight 65.59 kg Miguel Ball Other [facility] Other 05-09-2023 11:00-0500 Body weight 65.58 kg [facility] 05-09-2023 11:00-0500 Diastolic blood pressure 66 mm[Hg] Miguel Ball Other [facility] 05-09-2023 11:00-0500 Respiratory rate 12 /min Miguel Ball Other [employer] Other 05-09-2023 11:00-0500 Systolic blood pressure 118 mm[Hg] Miguel Ball Other [facility] 10-26-2022 10:30-0400 Body height 172.72 cm Miguel Ball Other [employer] [facility] [employer] Other 10-26-2022 10:30-0400 Body mass index (BMI) [Ratio] 21.89 kg/m2 Miguel Ball Other [employer] Other 10-26-2022 10:30-0400 Body weight 65.32 kg Miguel Ball Other [facility] Other 10-26-2022 10:30-0400 Diastolic blood pressure 60 mm[Hg] Miguel Ball Other [employer] Other 10-26-2022 10:30-0400 Respiratory rate 12 /min Miguel Ball Other [employer] Other 10-26-2022 10:30-0400 Systolic blood pressure 104 mm[Hg] Miguel Ball Other [employer] Other 08-17-2022 08:47-0400 Blood Pressure Location Conner SÁNCHEZ [facility] 08-17-2022 08:47-0400 Diastolic blood pressure 76 mm[Hg] Conner SÁNCHEZ [facility] 08-17-2022 08:47-0400 Heart rate 80 /min Conner SÁNCHEZ [facility] 08-17-2022 08:47-0400 Respiratory rate 16 /min Connerfili SÁNCHEZ [facility] 08-17-2022 08:47-0400 Systolic blood pressure 128 mm[Hg] Conner SÁNCHEZ [facility] 08-14-2021 09:20-0400 Blood Pressure Location Conner SÁNCHEZ [facility] 08-14-2021 09:20-0400 Diastolic blood pressure 76 mm[Hg] Conner SÁNCHEZ [facility] 08-14-2021 09:20-0400 Heart rate 61 /min Conner SÁNCHEZ [facility] 08-14-2021 09:20-0400 Systolic blood pressure 160 mm[Hg] Conner SÁNCHEZ [facility] Encounters Encounter Date Encounter Type Care Provider Facility Start: 02-06-2024 ambulatory SILVERIO DUR[facility] Start: 01-28-2024 End: 01-28-2024 ambulatory [facility] Work Phone: Start: 01-28-2024 End: 01-28-2024 Patient encounter procedure [facility] Work Phone: Start: 01-28-2024 End: 01-28-2024 ambulatory FATEMEH KELLY Not Available Start: 01-23-2024 End: 01-23-2024 ambulatory HAWK HILL Not Available Start: 01-23-2024 End: 01-23-2024 ambulatory HA[place] Not Available Start: 01-14-2024 End: 01-14-2024 ambulatory CAMACHO SINGER [facility] Start: 12-26-2023 ambulatory CAMACHO [facility] Start: 12-17-[address] [facility] Start: 12-12-2023 End: 12-12-2023 ambulatory ANUM A BROWN Not Available Start: 12-04-2023 End: 12-04-2023 ambulatory ALEX PRIETO [facility] Start: 11-14-2023 End: 11-14-2023 ambulatory ANUM A BROWN Not Available Start: 10-29-2023 [facility]: 10-24-2023 End: 10-24-2023 ambulatory ANUM A BROWN Not Available Start: 10-17-2023 End: 10-17-2023 ambulatory [facility] Work Phone: Start: 10-17-2023 End: 10-17-2023 Patient encounter procedure [facility] Work Phone: Start: 10-15-[address] [facility] Start: 10-15-[address] [facility] Start: 10-10-2023 End: 10-10-2023 ambulatory ANUM A BROWN Not Available Start: 10-09-2023 ambulatory CAMACHO [facility] Start: 09-26-2023 End: 09-26-2023 ambulatory ANUM A BROWN Not Available Start: 09-12-2023 End: 09-12-2023 ambulatory ANUM A BROWN Not Available Start: 09-11-2023 End: 09-11-2023 ambulatory FATEMEH KELLY Not Available Start: 09-02-2023 Non-patient / Non-visit [facility] Work Phone: Start: 08-29-2023 End: 08-29-2023 ambulatory SOPHIA HAMILTON Not Available Start: 08-29-2023 End: 08-29-2023 ambulatory ANUM A BROWN Not Available Start: 08-26-2023 End: 08-26-2023 ambulatory HAWK HILL Not Available Start: 08-20-2023 End: 08-21-2023 ambulatory HEATHER OQUENDO [facility] Start: 08-20-2023 End: 08-20-2023 Patient encounter procedure [facility]ATHER [facility]QUENDO [facility] Start: 08-15-2023 End: 08-15-2023 ambulatory ANUM FOLEY Not Available Start: 08-01-2023 End: 08-01-2023 ambulatory ANUM FOLEY Not Available Start: 07-29-2023 ambulatory CAMACHO SINGER [facility] Start: 07-18-2023 End: 07-18-2023 ambulatory ANUM FOLEY Not Available Start: 07-12-2023 End: 07-12-2023 ambulatory CHARITO GREY [facility] Start: 07-11-2023 End: 07-11-2023 ambulatory HAWK HILL Not Available Start: 07-10-2023 Non-patient / Non-visit [facility] Work Phone: Start: 07-04-2023 End: 07-04-2023 ambulatory ANUM FOLEY Not Available Start: 06-20-2023 End: 06-20-2023 ambulatory [facility] Work Phone: Start: 06-20-2023 End: 06-20-2023 Patient encounter procedure [facility] Work Phone: Start: 06-04-2023 End: 06-04-2023 ambulatory HA[place] Not Available Start: 05-29-2023 End: 05-29-2023 ambulatory Miguel Guevara Other [employer] Other Start: 05-29-2023 Telephone encounter [facility] Start: 05-27-2023 End: 05-27-2023 ambulatory Miguel Guevara Other [employer] Other Start: 05-27-2023 Telephone encounter Miguel Ball [facility] Start: 05-15-2023 End: 05-15-2023 ambulatory Miguel Ball Other [employer] Other Start: 05-15-2023 Telephone encounter Miguel Ball [facility] Start: 05-15-2023 Patient encounter procedure [facility]- Start: 05-14-2023 End: 05-14-2023 ambulatory [facility] Start: 05-13-2023 End: 05-13-2023 ambulatory Miguel Ball Other [employer] Other Start: 05-13-2023 Telephone encounter Miguel Ball [facility] Start: 05-09-2023 End: 05-09-2023 ambulatory Miguel Ball Other [employer] Other Start: 05-09-2023 Office outpatient vi sit 25 minutes Miguel Ball [facility] Start: 05-09-2023 End: 05-09-2023 Patient encounter procedure [facility] Work Phone: Start: 01-29-2023 End: 01-29-2023 ambulatory Miguel Ball Other [employer] Other Start: 01-29-2023 Telephone encounter Miguel Ball [facility] Start: 01-21-2023 End: 01-21-2023 ambulatory Miguel Ball Other [employer] Other Start: 01-21-2023 Telephone encounter Miguel Ball [facility] Start: 12-31-2022 End: 12-31-2022 ambulatory Miguel Ball Other [employer] Other Start: 12-31-2022 Telephone encounter Miguel Ball [facility] Start: 12-29-2022 End: 12-29-2022 ambulatory Miguel Ball Other [employer] Other Start: 08-26-2023 Telephone encounter Miguel Ball [facility] Start: 12-26-2022 End: 12-26-2022 ambulatory Miguel Guevara Other [employer] Other Start: 12-26-2022 Telephone encounter Miguel Ismael BONILLA [facility] Start: 10-26-2022 End: 10-26-2022 ambulatory Miguel Guevara Other [employer] Other Start: 10-26-2022 Office outpatient vi sit 25 minutes Miguel Guevara [facility] Start: 08-17-2022 End: 08-17-2022 Patient encounter procedure Conner SÁNCHEZ [facility] Start: 08-14-2022 End: 08-14-[address] MIGUEL GUEVARA Facility:[facility] Start: 06-11-2022 End: 06-12-2022 ambulatory KAILASH BARNES Facility:[facility] Start: 02-16-2022 End: 02-17-[address] MIGUEL GUEVARA Facility:[facility] Start: 01-19-2022 End: 01-20-[address] MIGUEL GUEVARA Facility:[facility] Start: 01-16-2022 Adult health examination Miguel Guevara Other [employer] Other Start: 01-16-2022 Encounter for genera l adult medical examination without abnormal findings Migule Guevara Other [employer] Other Start: 08-14-2021 End: 08-14-2021 Patient encounter procedure Conner SÁNCHEZ [facility] Procedures Date Procedure Procedure Detail Performing Clinician [...] Activity Detail Author Start: 06-20-2023 Patient referral [facility] Work Phone: Patient referral [facility] Work Phone: Immunizations Immunization Date Immunization Notes Care Provider Fa gladys 01-28-2023 influenza virus vaccine, unspecified formulation [facility] 01-28-2023 influenza, high dose seasonal, preservative-free Miguel Guevara Other [email or web address] [facility] Other 02-10-2022 COVID-19 Vaccine Pfi zer - Documentation Purposes Only Miguel Guevara Other [facility] 01-05-2022 influenza virus vaccine, split virus (incl. purified surface antigen) Miguel Guevara Other [employer] Other 01-05-2022 influenza virus vaccine, unspecified formulation [facility] 02-15-2021 influenza virus vaccine, unspecified formulation Conner SÁNCHEZ [facility] 01-17-2021 influenza virus vaccine, split virus (incl. purified surface antigen) Miguel Guevara Other [employer] Other 01-17-2021 influenza virus vaccine, unspecified formulation [facility] 06-15-2020 SARS-CoV-2 (COVID-19 ) Ad26 vaccine, recombinant Conner SÁNCHEZ [facility] 05-12-2020 SARS-CoV-2 (COVID-19 ) Ad26 vaccine, recombinant Conner SÁNCHEZ [facility] 01-02-2020 influenza virus vaccine, split virus (incl. purified surface antigen) Miguel Guevara Other [facility] Other 01-02-2020 influenza virus vaccine, unspecified formulation [facility] 02-12-2018 influenza virus vaccine, split virus (incl. purified surface antigen) Miguel Guevara Other [facility] Other 02-12-2018 influenza virus vaccine, unspecified formulation [facility] 04-03-2017 pneumococcal conjuga te vaccine, 13 valent Miguel Guevara Other [facility] 03-22-2017 influenza virus vaccine, split virus (incl. purified surface antigen) Miguel Guevara Other [facility] Other 03-22-2017 influenza virus vaccine, unspecified formulation [facility] 02-08-2016 diphtheria, tetanus toxoids and acellular pertussis vaccine, unspecified formulation Miguel Guevara Other [facility] 01-03-2016 influenza virus vaccine, split virus (incl. purified surface antigen) Miguel Guevara Other [facility] Other 01-03-2016 influenza virus vaccine, unspecified formulation [facility] 05-10-2015 pneumococcal conjuga te vaccine, 13 valent Miguel Guevara Other [facility] 01-13-2014 tetanus and diphther ia toxoids, adsorbed, preservative free, for adult use (5 Lf of tetanus toxoid and 2 Lf of diphtheria toxoid) Miguel [employer] Other [facility] 03-11-2013 tetanus and diphther ia toxoids, adsorbed, preservative free, for adult use (5 Lf of tetanus toxoid and 2 Lf of diphtheria toxoid) Miguel [employer] Other [facility] 01-26-2013 tetanus and diphther ia toxoids, adsorbed, preservative free, for adult use (5 Lf of tetanus toxoid and 2 Lf of diphtheria toxoid) [employer] Other [facility] 01-21-2013 tetanus and diphther ia toxoids, adsorbed, preservative free, for adult use (5 Lf of tetanus toxoid and 2 Lf of diphtheria toxoid) [employer] Other [facility] 04-12-2010 pneumococcal polysaccharide vaccine, 23 valent Miguel [employer] Other [facility] Payers Date Payer Category Payer Medicare [id number] 1958 Unknown [id number] 1935 Unknown [id number] 2.16.84 0.1.285153.3.579.2.593 1935 Unknown [id number] 2.16.84 0.1.457181.3.579.2.593 1935 Unknown [id number] 2.16.84 0.1.505005.3.579.2.593 1935 Unknown [id number] 2.16.84 0.1.348178.3.579.2.593 1935 Unknown [id number] 2.16.8 40.1.551790.3.579.2.727 1935 Unknown [id number] 2.16.84 0.1.075219.3.579.2.1259 1936 Unknown [id number] 2.16.84 0.1.398617.3.579.2.1259 1936 Unknown [id number] 2.16.84 0.1.283877.3.579.2.1259 1936 Unknown [id number] 2.16.84 0.1.505478.3.579.2.125 1936 Unknown [id number] 2.16.84 0.1.294356.3.579.2.1258 1936 Unknown [id number] 2.16.84 0.1.954320.3.579.2.125 1936 Unknown [id number] 2.16.84 0.1.721090.3.579.2.125 1936 Unknown [id number] 2.16.84 0.1.771401.3.579.2.1258 1936 Unknown [id number] 2.16.84 0.1.048043.3.579.2.1258 1936 Unknown [id number] 2.16.84 0.1.460407.3.579.2.1258 1936 Unknown [id number] 2.16.84 0.1.223208.3.579.2.1258 1936 Unknown [id number] 2.16.84 0.1.745174.3.579.2.1259 1936 Unknown [id number] 2.16.84 0.1.202421.3.579.2.125 1936 Unknown [id number] 2.16.84 0.1.020581.3.579.2.1258 1936 Unknown [id number] 2.16.84 0.1.833489.3.579.2.125 1936 Unknown [id number] 2.16.84 0.1.043734.3.579.2.1258 1936 Unknown [id number] 2.16.84 0.1.149378.3.579.2.125 1936 Unknown [id number] 2.16.84 0.1.623168.3.579.2.1259 1936 Unknown [id number] 2.16.84 0.1.982719.3.579.2.1259 1936 Unknown [id number] 2.16.84 0.1.614764.3.579.2.1259 1936 Unknown [id number] 2.16.84 0.1.636765.3.579.2.1259 Social History Date Type Detail Facility Start: 08-14-2021 End: 06-17-2023 Tobacco smoking status Never smoked tobacco (finding) [facility] Tobacco smoking status Never [facility] Sex Assigned At Male [facility] Start: 1935 Sex Assigned At Male F [facility] Functional Status Date Assessment Result Facility 08-20-2023 Functional Status N/A [facility] 08-17-2022 Functional Status Yes [facility] Clinical Notes 08-14-2021 to 01-14-2024 Note Date & Type Note Facility 01-14-2024 Note [facility] Consul t Note Reason for visit: s/p flutter ablation, [employer] loop monitoring for AF 01/14/24 A lot of his AF is SR with PVC. One episode below is concerning for Aflutter. 05/14/23 Patient here for 5 mo follow up stress test. He was started on Farxiga by Nathaniel Reyes at last visit in Dec 2022. [...] to compare. BNP 03/26/2019: Within normal. PMH: Past Medical History: Diagnosis Date Abnormal ECG Arrhythmia Atrial flutter (CMS/HCC) Coronary artery disease Heart valve disease Hyperlipidemia Hypertension Ischemic cardiomyopathy PSH: Past Surgical History: Procedure Laterality Date ATRIAL ABLATION SURGERY 06/13/2020 CARDIOVERSION 04/07/2019 (more content not included)... [facility] 12-04-2023 Note [place] [facility] - [facility] Subjective Annelise Olson is a [...] of duodenal ulcer Increased frequency of urination FDC current use of anticoagulant therapy Osteoarthritis of [...] capsule, if n (more content not included)... [facility] 07-12-2023 Note [facility] II- currently e uvolemic without exacerbation Continue GDMT- ASA, lipitor, farxiga, lasix Diuretic therapy, and lisinopril Monitor daily weights, I&O, fluid restriction 1.5-2L/day, renal function and electrolytes- [facility] 07-12-2023 Note Repeat echocardiogra m prior to next visit [facility] 07-12-2023 Note Hypertension is curr ently well controlled Continue lisinopril Renal function normal [facility] 07-12-2023 Note [facility] CARDIOLOGY PROGR ESS [...] is significant for CAD, hyperlipidemia and hypertension. [facility] 07/10/23 Review of Systems Cardiovascular: Positive for chest pain. Previous HPI per DR Singer 05/14/23 05/14/23 Patient here for 5 mo follow up stress test. He was started on Farxiga by Nathaniel Reyes at last visit in Dec 2022. He had routine labs in Jan 2023. states Farxiga was expensive for them so they'd like to know if there's an alternative. Denies chest pain, SOB, palpitations, and lightheadedness/syncope. Device check that was performed by me with the [employer] rep today revealed multiple episodes of A-fib. [...] are 3 on (more content not included)... [facility] 07-12-2023 Note Lipid abnormalities are stable Continue statin [facility] 07-12-2023 Note 1 episode of angina that resolved with 1 NTG SL therefore will start imdur 30 mg daily Continue GDMT- ASA, lipitor, lisinopril- no beta sissy r/t bradycardia continue risk factor modifications- heart healthy diet, regular exercise as tolerated and continue all medications. [facility] 06-20-2023 Hospital Discharge instructions Ambulatory OrdersReferral to Audiology Time Frame: 06/20/23, Location: None SelectedReferral to Neurology Time Frame: 06/20/23, Location: None Selected [facility] Work Phone: 06-20-2023 Evaluation note Diagnosis Onset Date Mild cognitive impairment ac [place] Primary hypertension acute SNHL (sensorineural hearing loss) acute Stage 3a chronic kidney disease acute Cerumen impaction noneactive [facility] Work Phone: [phone] 944-819801-10-2024 Evaluation note* Encounter Date Diagnosis Assessment Notes Treatment Notes Treatment Clinical Notes May, Chronic HFrEF (heart failure with reduced ejection fraction) (ICD-10 - I50.22) Echocardiogram: 12/2022 LVEF 45%, RV dilated, mild MR, [facility] Other 01-09-2024 [facility] Consult Note Reason for visit: s/p flutter ablation, [employer] loop monitoring for AF 05/14/23 Patient here for 5 mo follow up stress test. He was started on Farxiga by Nathaniel Reyes at last visit in Dec 2022. [...] Financial Resource Strain: No (more content not included)...[facility]01-08-2024 Evaluation note* Encounter Date Diagnosis Assessment Notes Treatment Notes Treatment Clinical Notes May, Mild cognitive impairment (ICD-10 - G31.84) [facility] Other 01-04-2024 Evaluation note* Encounter Date Diagnosis [...] May, Fatigue, unspecified type (ICD-10 - R53.83) [facility] Other 09-18-2023 Evaluation note* Encounter Date Diagnosis Assessment Notes Treatment Notes Treatment Clinical Notes Jan, Essential hypertension (ICD-10 - I10) [facility] Other 08-28-2023 Evaluation note* Encounter Date Diagnosis Assessment Notes Treatment Notes Treatment Clinical Notes Dec, ASHD (arteriosclerotic heart disease) (ICD-10 - I25.10) NM Imaging: LVEF 40% [facility] Other 08-26-2023 Evaluation note* Encounter Date Diagnosis Assessment Notes Treatment Notes Treatment Clinical Notes Dec, ASHD (arteriosclerotic heart disease) (ICD-10 - I25.10) NM Imaging: LVEF 40% [facility] Other 08-23-2023 Evaluation note* Encounter Date Diagnosis Assessment Notes Treatment Notes Treatment Clinical Notes Dec, Lumbar spondylosis (ICD-10 - M47.816) [facility] Other 06-23-2023 Evaluation note* Encounter Date Diagnosis Assessment Notes [...] prevent thromboembolic events. 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 [facility] Other 04-14-2023 Hospital Discharge instructions Follow Up Care 08/17/2022 09:23:38 With:PRINCESS GARCIA, Conner Simpson, URL Address: [facility] [address] [place] [address] [phone] When: Unknown [facility] [place] 04-14-2023 Hospital Discharge instructions Patient Education 08/17/2022 [...] urethra. Follow these instructions at home: Take dyjx-itq-quiiapn and prescription medicines only as told by [...] 04/22/2006 Document Revised: 03/17/2019 Document Reviewed: 05/27/2017 [employer] Patient Education 2020 [employer]. Follow Up Care 08/14/2021 10:16:11 With:PRINCESS GARCIA, Conner Simpson, URL Address: [facility] [address], [place] [address]- [phone] When:Within 1 Year(s) Comments:1 year [facility] [place] 04-11-2022 Hospital Discharge instructions Patient Education 08/14/2021 [...] reconstructed. Follow these instructions at home: Take rqzm-adg-sbwowlb and prescription medicines only as told by [...] 05/18/2016 Document Revised: 12/03/2018 Document Reviewed: 12/03/2018 [employer] Patient Education 2020 [employer]. 08/14/2021 10:10:57 Benign Prostatic Hyperplasia Benign Prostatic [...] urethra. Follow these instructions at home: Take bmay-ywn-iyrkddp and prescription medicines only as told by [...] 04/22/2006 Document Revised: 03/17/2019 Document Reviewed: 05/27/2017 [employer] Patient Education 2020 [employer] Follow Up Care 02/06/2021 12:37:54 With:Conner SÁNCHEZ MD, URL Address: [facility] [address], [place] [address] [phone] When:08/14/2022 Comments:f/u in 1 year [facility] evaluation + Plan note Future Appointments Appointment Date:08/17/2022 08:45:00 AM Scheduled Provider:Conner SÁNCHEZ MD Location:[facility] Appointment Type:URO Office Visit [facility] evaluation + Plan note Future Appointments Appointment Date:08/19/2023 09:45:00 AM Scheduled Provider:Conner SÁNCHEZ MD Location:[facility] Appointment Type:URO Office Visit [facility] evaluation noteNo [employer] Other [employer] note* Diagnosis Onset Date Resolution Status Mild cognitive impairment ac [place] Primary hypertension acute SNHL (sensorineural hearing loss) acute Stage 3a chronic kidney disease acute Cerumen impaction noneactive [facility] Work Phone: Evaluation note* Diagnosis Onset Date Resolution Status Chronic HFrEF (heart failure with reduced ejection fraction) acute Hypercholesterolemia acute Ischemic cardiomyopathy acut e Mild cognitive impairment ac [place] Primary hypertension acute SNHL (sensorineural hearing loss) acute Stage 3a chronic kidney disease acute [facility] Work Phone: Evaluation noteNo assessment information available [facility] Work Phone: History general Narrative - [...] Medical History Left leg swelling Medical History FDC (current) use of opiat e analgesic Surgical History TURP, WITH CYSTOSCOPY Surgical History ABLATION, ARRHYTHMOG ENIC FOCUS, FOR ATRIAL FLUTTER, IN CARDIAC CATHETERIZATION Surgical History CABG Surgical History B/L HERNIORRPHAPHY Surgical History COLONSCOPY Surgical History EGD Hospitalization History SEE SURGICAL [facility] Other History general Narrative - Reported* Type [...] History Arthritis of knee, right Medical History FDC (current) use of opiat e analgesic Medical History HFrEF Medical History Ischemic cardiomyopathy Surgical History TURP, WITH CYSTOSCOPY Surgical History ABLATION, ARRHYTHMOG ENIC FOCUS, FOR ATRIAL FLUTTER, IN CARDIAC CATHETERIZATION Surgical History CABG Surgical History B/L HERNIORRPHAPHY Surgical History COLONSCOPY Surgical History EGD Hospitalization History SEE SURGICAL HX [facility] Other Hospital course Narrative No data available for this section [facility] progress note No data available for this section [facility] Summary Purpose Family History No Family History [...] hearing loss) Stage 3a chronic kidney disease Chief Complaint flu shot Additional Source Comments (unrecognized sect ion and content) No Status Records FoundNo Status Records FoundNo Status Records FoundNo Status Records FoundNo Status Records Found INFORMATION SOURCE (unrecogn ized section and content) DATE CREATED AUTHOR 06/10/2021 [facility] DATE CREATED AUTHOR AUTHOR'S ORGANIZ ATION 08/16/2022 [facility] DATE CREATED AUTHOR AUTHOR'S ORGANIZ ATION 08/22/2023 [facility] DATE CREATED AUTHOR AUTHOR'S ORGANIZ ATION 01/30/2024 [facility] DATE CREATED AUTHOR AUTHOR'S ORGANIZ ATION 02/07/2024 [facility] Patient Care team informatio n (unrecognized section and content) Team Status: Active Member Role Status Dates Miguel Guevara DO Primary Care Provider Active Team Status: Inactive Member Role Status Dates Miguel Guevara DO Primary Care Provide r, Attending Provider Active Start: January 28, 2024 End: January 28, 2024 Team Status: Active Member Role Status Dates [...] BE BASED ON THE PRIMARY CLINICAL RECORDS. [employer] [facility]. provides no warranty or guarantee of the accuracy or completeness of information in this document.
[2024-02-07 12:32] LABS: Anion Gap 9.3; BUN Creatinine Ratio 9.9; Calcium 8.8 mg/dL (8.5-10.1); Carbon Dioxide 26.9 mmol/L (21.0-32.0); Chloride 105 mmol/L (98-107); Estimated GFR (African America >60 (>=60 mL/min/1.73m^2); Estimated GFR (Non-African Ame >60 (>=60 mL/min/1.73m^2); Glucose 96 mg/dL (74-106); Potassium 4.2 mmol/L (3.5-5.1); Sodium 137 mmol/L (136-145)
== END 2024-02-07 11:26 | disposition home or self-care (01) ==
LOC: LAB 11:25
PROVIDERS: PCP Internal Medicine; Visit Provider Internal Medicine Cardiovascular Disease
DX: I47.19 Other supraventricular tachycardia (principal)
CPT/HCPCS: 36415; 80048; 85025

== ENCOUNTER 2024-02-21 09:36 | Outpatient (OUT) | payer MEDICARE, SELFPAY ==
--- OUTSIDE RECORDS SUMMARY | 2024-02-21 09:39 | XMS_ITS | CCD ---
Author Organization [facility] CliniSyal Care Team Providers Care Christian Education Director Name Role Phone MIGUEL GUEVARA Primary Care [...] ALVAREZ Attending Unavailable CALABRESE, ALYCIA Consulting Unavailable Ismael, Miguel Unavailable HEATHER OQUENDO Attending Unavailable HILL, HAWK Vanegas Referring Unavailable HILL, HAWK Vanegas Attending Unavailable HILL, HAWK Vanegas Referring Unavailable BROWN, ANUM Naranjo Attending Unavailable HILL, HAWK Vanegas Attending Unavailable BROWN, ANUM Naranjo Attending Unavailable BROWN, ANUM Naranjo Attending Unavailable BROWN, ANUM Naranjo Attending Unavailable BROWN, ANUM Naranjo Attending Unavailable JOYSOPHIA Attending Unavailable BALLMIGUEL Referring Unavailable LETICIAFATEEMH Attending Unavailable BROWN, ANUM Naranjo Attending Unavailable BROWN, ANUM Naranjo Attending Unavailable BROWN, ANUM Naranjo Attending Unavailable BROWN, ANUM A Attending Unavailable BROWN, ANUM A Attending Unavailable BROWN, ANUM A Attending Unavailable HILL, HAWK T Referring Unavailable HILL, HAWK Vanegas Attending Unavailable LETICIAFATEMEH Attending Unavailable KIZZY, SILVERIO Referring Unavailable KIZZY, SILVERIO Referring Unavailable KIZZY, SILVERIO Referring Unavailable KIZZY, SILVERIO Referring Unavailable KIZZY, SILVERIO Referring Unavailable KIZZY, SILVERIO Referring Unavailable KIZZY, SILVERIO Referring Unavailable KIZZY, SILVERIO Referring Unavailable KIZZY, SILVERIO Referring Unavailable KIZZY, SILVERIO Referring Unavailable KIZZY, SILVERIO Referring Unavailable CADE, CAMACHO Referring Unavailable CHARITO GREY Attending Unavailable CADE, CAMACHO Attending Unavailable CADE, CAMACHO Attending Unavailable KIZZY, SILVERIO Referring Unavailable SENELLEALEX GERMAN Attending Unavailable CADE, CAMACHO Referring Unavailable CADE, CAMACHO Referring Unavailable KIZZY, SILVERIO Referring Unavailable KIZZY, SILVERIO Referring Unavailable KIZZY, SILVERIO Referring Unavailable KIZZY, SILVERIO Referring Unavailable CADE, CAMACHO Referring Unavailable KIZZY, SILVERIO Referring Unavailable Allergies Allergy Classification Reported Allergen(s) Allergy Type Date of Onset Reaction(s) Facility (18 sources) Naproxen; Translations: [naproxen] Drug Allergy 4 Unknown (qualifier value) [facility] (1 source) Naproxen Drug Allergy 7 [facility] Repository (6 sources) patient allergy list reviewed by nurse or physicia Propensity to adverse reactions 9 Comment:Done [employer] Other Medications Current Medications Medication Drug Class(es) Dates Sig (Normalized) Sig (Original) apixaban 5 mg oral tablet (3 sources) Factor Xa Inhibitor Start: 05-12-2020 take 1 mg by mouth twice daily Eliquis 5 mg oral tablet mg tab(s), Oral, BID, Refills(s) 0 Start Date: 05/12/20 Status: Ordered aspirin 81 mg delayed release oral tablet (19 sources) Platelet Aggregation Inhibitor, Nonsteroidal Anti-inflammatory Drug [...] DAILY IN THE EVENING Start: 05-12-2020 End: 11-18-2023 take 40 mg by mouth once daily [...] Status: Ordered take 1 capsule by mo [facility] every twenty-four hours ZyrTEC Allergy 10 MG 1 capsule Orally Once a day Active dapagliflozin 10 mg oral tablet (1 source) Sodium-Glucose Cotransporter 2 Inhibitor Start: 02-17-2024 take 1 tablet by mouth once daily Dapagliflozin Propanediol (Farxiga) 10 mg tablet Active 10 MG PO Daily February 17, 2024 12:00am finasteride 5 mg oral tablet (1 source) 5-alpha Reductase Inhibitor Start: 02-17-2024 take 5 mg by mouth once daily Finasteride Active 5 MG PO Daily February 17, 2024 12:00am furosemide 40 mg oral tablet (20 sources) Loop Diuretic Start: 05-12-2020 take 40 mg by mouth once daily Furosemide Active 40 MG PO Daily June 17, 2023 1:00am 24 hr isosorbide mononitrate 30 mg extended release oral tablet (1 source) Nitrate Vasodilator Start: 02-17-2024 take 30 mg by mouth once daily Isosorbide Mononitrate Active 30 MG PO Daily February 17, 2024 12:00am lisinopril 10 mg oral tablet (20 sources) [...] # 30 tab(s), Refills(s) 11, Pharmacy: [id number], 170, cm, 08/17/22 8:49:00 EDT, Height/Length Dosing, 66, kg, 08/17/22 8:49:00 EDT, Weight Dosing Start Date: 08/17/22 Status: Ordered nitroglycerin 0.4 mg sublingual tablet (20 sources) Nitrate Vasodilator Start: 10-17-2023 Nitroglycerin (Nitrostat) [...] Ordered tamsulosin hydrochloride 0.4 mg oral capsule (19 sources) alpha-Adrenergic Sissy Start: 06-17-2023 take 1 capsule by mouth once daily Tamsulosin Active 1 CAP PO Daily June 17, 2023 1:00am [employer] capsule Orally Once a day; Note: Source Status: Taking; Provider: Ismael Rivera ( ) take 1 capsule by mo [facility] every twenty-four hours Tamsulosin HCl [...] as needed Orally Once a day Active Completed/Discontinued Medications Medication Drug Class(es) Dates Sig (Normalized) Sig (Original) 24 hr metoprolol succinate 25 mg extended release oral tablet (2 sources) beta-Adrenergic Sissy Start: 12-10-2023 End: 02-17-2024 take 12.5 mg by mouth once daily Metoprolol Succinate Discontinued 12.5 MG PO Daily December 10, 2023 12:00am February 17, 2024 11:27am Problems Active Problems Problem Classification Problem Date Documented Da te Episodic/Chronic Abdominal pain (3 sources) Lower abdominal pain, unspecified; Translations: [LOWER ABDOMINAL PAIN UNSPECIFIED] Onset: 3 Episodic Cardiac dysrhythmias (20 sources) Typical atrial flutter; Translations: [Typical atrial flutter] Onset: 2 05-12-2020 Chronic Chronic kidney disease (15 sources) Chronic kidney disease stage 3A ; Translations: [Stage 3a chronic kidney disease] 06-17-2023 Chronic Complication of device; implant or graft (2 sources) Atherosclerosis of coronary artery bypass graft(s), unspecified, with other forms of angina pectoris; Translations: [Atherosclerosis of coronary artery bypass graft(s), unspecified, with other forms of angina pectoris] Onset: 4 Chronic Congestive heart failure; nonhypertensive (13 sources) Heart failure, unspecified; Translations: [Chronic systolic heart failure] Onset: 3 Chronic Coronary atherosclerosis and other heart disease (20 sources) Coronary arteriosclerosis; Translations: [Atherosclerotic heart disease of [place] coronary artery without angina pectoris] Onset: 2 [...] HEART DISEASE W/HEART FAIL] Onset: 3 Chronic Immunizations and screening for infectious disease (8 sources) Encounter for immunization; Translations: [Vaccination given] Onset: 6 01-28-2024 Episodic Inflammatory conditions of male genital organs (3 sources) 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 Chronic Malaise and fatigue (12 sources) Other malaise and fatigue; Translations: [Malaise and fatigue] Onset: 4 Episodic Noninfectious gastroenteritis (1 source) Noninfective gastroenteritis and colitis, unspecified; Translations: [NONINFECTIVE GE AND COLITIS UNS] Onset: 3 Episodic Osteoarthritis (20 sources) Osteoarthritis of hip; Translations: [Osteoarthritis of knee] 05-12-2020 Chronic Other aftercare (20 sources) Long-term current use of anticoagulant; Translations: [assisted (current) use of anticoagulants] 05-12-2020 Episodic Other aftercare (1 source) assisted (current) use of aspirin; Translations: [JAVA ANDROID DEVELOPER CURRENT USE OF ASPIRIN] Onset: 3 Episodic Other aftercare (3 sources) Other termite helper (current) drug therapy; Translations: [OTH ALF CURRENT DRUG THERAPY] Onset: 3 Episodic Other aftercare (13 sources) H/O: high risk medication; Translations: [Other termite helper (current) drug therapy] Episodic Other aftercare (13 sources) High risk drug monitoring status; Translations: [assisted (current) use of opiate analgesic] Episodic Other aftercare (2 sources) termite helper (current) use of opiate analgesic; Translations: [assisted (current) use of opiate analgesic] Episodic Other aftercare (1 source) assisted (current) use of anticoagulants; Translations: [termite helper (current) use of anticoagulants] Episodic Other aftercare (5 sources) Long-term current use of drug therapy; Translations: [Other termite helper (current) drug therapy] Episodic Other circulatory disease (19 sources) H/O: cardiovascular disease; Translations: [Personal history of other diseases of the circulatory system] Episodic Other circulatory disease (3 sources) Personal history of other diseases of the circulatory system; Translations: [H/O atrial flutter] Episodic Other circulatory disease (5 sources) History of atrial flutter; Translations: [Personal [...] Chronic Other ear and sense organ disorders (5 sources) Sensorineural hearing loss; Translations: [Unspecified sensorineural [...] Other hereditary and degenerative nervous system conditions (11 sources) Impaired cognition; Translations: [Mild cognitive impairment, so stated] 06-17-2023 Chronic Other hereditary and degenerative nervous system conditions (6 sources) Mild cognitive impairment, so stated; Translations: [...] chronic pain] Chronic Other non-traumatic joint disorders (6 sources) Pain in right knee; Translations: [Right [...] RT EYELID PERIOCULAR INIT] Onset: 3 Episodic Thyroid disorders (2 sources) Subclinical hypothyroidism; Translations: [Other specified hypothyroidism] 02-14-2024 Chronic Unclassified (1 source) Special screening for malignant [...] [Gastroesophageal reflux disease with esophagitis without hemorrhage] Other gastrointestinal disorders (4 sources) Diarrhea, unspecified; Translations: [DIARRHEA UNSPECIFIED] Onset: 02-16-2022 Episodic Results Test Name Value Interpretation Reference Range Facility Basophils Auto (Bld) [#/Vol] on 02-07-2024 Basophils (Bld) [#/Vol] 0.0 10 3/uL 0.0-0.1 [facility] Basophils/100 WBC Auto (Bld) on 02-07-2024 Basophils/100 WBC (Bld) 0.4 % 0.2-2.0 [facility] Eosinophils/100 WBC Auto (Bl d)on 02-07-2024 Eosinophils/100 WBC (Bld) 4.1 % 0.9-7.0 [facility] Erythrocyte distribution wid th Auto (RBC) [Ratio]on 02-07-2024 Erythrocyte distribution width (RBC) [Ratio] 12.2 % 11.0-15.0 [facility] Estimated glomerular filtrat ion rate (GFR) non- Americanon 02-07-2024 GFR/1.73 sq M.predicted among non-blacks MDRD (S/P/Bld) [Vol rate/Area] mL/min/{1.73_m2} >=60 mL/min/1.73 m 2 [facility] Hematocrit Auto (Bld) [Volum e fraction]on 02-07-2024 Hematocrit (Bld) [Volume fraction] 44.4 % 42.0-54.0 [facility] Hemoglobin [Mass/volume] in Bloodon 02-07-2024 Hemoglobin (Bld) [Mass/Vol] 14.9 g/dL 14.0-18.0 [facility] Laboratory - Chemistry and C hemistry - challengeon 02-07-2024 Calcium [Mass/Vol] 8.8 mg/dL 8.5-10.1 [facility] Chloride [Moles/Vol] 105 mmol/L 98-107 [facility] CO2 [Moles/Vol] 26.9 mmol/L 21.0-32.0 [place] Creatinine [Mass/Vol] 1.11 mg/dL 0.70-1.30 [facility] GFR/1.73 sq M.predicted MDRD (S/P/Bld) [Vol rate/Area] mL/min/{1.73_m2} >=60 mL/min/1.73 m 2 [facility] Glucose [Mass/Vol] 96 mg/dL 74-106 [facility] Potassium [Moles/Vol] 4.2 mmol/L 3.5-5.1 [facility] Sodium [Moles/Vol] 137 mmol/L 136-145 [facility] Urea nitrogen [Mass/Vol] 11.0 mg/dL 7.0-18.0 [facility] Urea nitrogen/Creatinin e [Mass ratio] 9.9 mg/mg [facility] Laboratory - Hematology and Cell countson 02-07-2024 Immature granulocytes/100 WBC (Bld) 0.3 % 0.0-0.5 [facility] Leukocytes [#/volume] correc analia for nucleated erythrocytes in Blood by Automated counon 02-07-2024 WBC corrected for nucl RBC Auto (Bld) [#/Vol] 7.2 10 3/uL 4.0-11.0 [facility] Lymphocytes Auto (Bld) [#/Vo l]on 02-07-2024 Lymphocytes (Bld) [#/Vol] 1.4 10 3/uL 1.2-3.8 [facility] Lymphocytes/100 WBC Auto (Bl d)on 02-07-2024 Lymphocytes/100 WBC (Bld) 19.3 % Low 20.5-60.0 [facility] MCH Auto (RBC) [Entitic mass ]on 02-07-2024 MCH (RBC) [Entitic mass] 34.9 pg High 25.9-34.0 [facility] MCHC Auto (RBC) [Mass/Vol]on 02-07-2024 MCHC (RBC) [Mass/Vol] 33.6 g/dL 29.9-35.2 [facility] MCV Auto (RBC) [Entitic vol] on 02-07-2024 MCV (RBC) [Entitic vol] 104.0 fL High 80.0-94.0 [facility] Monocytes Auto (Bld) [#/Vol] on 02-07-2024 Monocytes (Bld) [#/Vol] 0.8 10 3/uL 0.3-0.8 [facility] Monocytes/100 WBC Auto (Bld) on 02-07-2024 Monocytes/100 WBC (Bld) 10.6 % 1.7-12.0 [facility] Neutrophils Auto (Bld) [#/Vo l]on 02-07-2024 Neutrophils (Bld) [#/Vol] 4.7 10 3/uL 1.4-6.5 [facility] Neutrophils/100 WBC Auto (Bl d)on 02-07-2024 Neutrophils/100 WBC (Bld) 65.3 % 43.0-75.0 [facility] No Panel Informationon 02-06 Eosinophils # (Auto) 0.3 10 3/uL 0.0-0.7 [facility] Immature Granulocyte # (Auto) 0.02 10 3/uL 0.00-0.03 [facility] Platelet mean volume Auto (B ld) [Entitic vol]on 02-07-2024 Platelet mean volume (Bld) [Entitic vol] 8.8 fL Low 9.5-13.5 [facility] Platelets Auto (Bld) [#/Vol] on 02-07-2024 Platelets (Bld) [#/Vol] 146 10 3/uL Low 150-450 [facility] RBC Auto (Bld) [#/Vol]on RBC (Bld) [#/Vol] 4.27 10 6/uL Low 4.70-6.10 [facility] Serum or plasma anion gap de terminationon 02-07-2024 Anion gap [Moles/Vol] 9.3 mmol/L [facility] Orders Onlyon 02-05-2024 Orders Only [id number] Brannon Olson 1935 M Date Provider Department Center 02/05/2024 LIBAN MOSQUEDA [facility] Family History Problem Relation Age of Onset Coronary artery disease Mother Coronary artery disease Father Family Status - Relation Status Age at Mother Father Normal [facility] Office Visiton 01-14-2024 Follow-up visit [id number] Brannon Olson 1935 M Date Provider Department Center 01/14/2024 CAMACHO CARTWRIGHT [facility] Family History Problem Relation Age of Onset Coronary artery disease Mother Coronary artery disease Father Family Status - Relation Status Age at Mother Father Level of Service:54759 [place] OFFICE/OUTPATIENT ESTABLISHED LOW MDM 20 MIN Normal [facility] Office Visiton 12-04-2023 Follow-up visit [id number] Brannon Olson 1935 M Date Provider Department Center 12/04/2023 ALEX VALENCIA Jorge L Noemy Family History Problem Relation Age of Onset Coronary artery disease Mother Coronary artery disease Father Family Status - Relation Status Age at Mother Father Level of Service:49131 RI OFFICE/OUTPATIENT ESTABLISHED MOD MDM 30 MIN Normal [facility] No Panel Informationon 09-01 Folate 11.40 ng/mL 8.60-58.90 [facility] Screenson 08-22-2023 Screens [id number]#[id number] Normal [facility] Screens [id number]#[id number] Normal [facility] Patient Educationon 08-21-19 Patient Education Urology [...] nerve stimulation). ? For women, using a coroner/medical examiner to prevent urine leaks. This is a [...] urine. ? (more content not included)... Normal [facility] Urology Office/Clinic Noteon 08-21-2023 Urology Office/Clinic [...] E&M of Est. Patient Low 20-29 Min 74639 2. Urge incontinence (N39.41: Urge incontinence) UA completed in office today shows no microhematuria or signs of infection. PRW prescribed myrbetriq last year. pt filled 1 mo but it didn't help and was very costly. pt not interested in trying any other meds for these sx. Ordered: Complex E&M Add on G2211 E&M of Est. Patient Low 20-29 Min 42491 3. 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 reports steady stream. no complaints at this time. Ordered: Complex E&M Add on G2211 E&M of Est. Patient Low 20-29 Min 51866 pt pleased w urinary status at this time. Offered continued scheduled follow up with our clinic vs following up PRN. Pt prefers the latter. Follow-up With When Contact Information HEATHER OQUENDO PA-C, KAUSHIK Only if needed [address] [place] [address] Business (1) Additional Instructions: PRINCESS GARCIA, Conner Simpson, KAUSHIK [facility] [address], [place] [address] [phone] Additional Instructions: Patient Education Urinary Incontinence Problem [...] (COVID-19) Ad26 vaccine 05/12/2020 Recorded Normal [facility] Comment on above: Result Comment: Elec tronically Signed By: AZRA SPEARS, HEATHER [email or web address]\Date and Time Signed: 08/21/23 13:10 EDT Office Visiton 07-12-2023 Follow-up visit [id number] Brannon Olson 1935 M Date Provider Department Center 07/12/2023 CHARITO SALOMON CARD [facility] Family History Problem Relation Age of Onset Coronary artery disease Mother Coronary artery disease Father Family Status - Relation Status Age at Mother Father Level of Service:01049 RI OFFICE/OUTPATIENT ESTABLISHED MOD MDM 30 MIN Reason for Visit and Comments: Follow-up [064892] - Patient here for hospital follow up Normal [facility] Basophils Auto (Bld) [#/Vol] on 07-10-2023 Basophils (Bld) [#/Vol] 0.0 10 3/uL 0.0-0.1 [facility] Basophils/100 WBC Auto (Bld) on 07-10-2023 Basophils/100 WBC (Bld) 0.5 % 0.2-2.0 [facility] Eosinophils/100 WBC Auto (Bl d)on 07-10-2023 Eosinophils/100 WBC (Bld) 3.8 % 0.9-7.0 [facility] Erythrocyte distribution wid th Auto (RBC) [Ratio]on 07-10-2023 Erythrocyte distribution width (RBC) [Ratio] 12.5 % 11.0-15.0 [facility] Estimated glomerular filtrat ion rate (GFR) non- Americanon 07-10-2023 GFR/1.73 sq M.predicted among non-blacks MDRD (S/P/Bld) [Vol rate/Area] 52 mL/min/{1.73_m2} >=60 [facility] Globulin Calc (S) [Mass/Vol] on 07-10-2023 Globulin (S) [Mass/Vol] 3.9 g/dL [facility] Hematocrit Auto (Bld) [Volum e fraction]on 07-10-2023 Hematocrit (Bld) [Volume fraction] 45.9 % 42.0-54.0 [facility] Hemoglobin [Mass/volume] in Bloodon 07-10-2023 Hemoglobin (Bld) [Mass/Vol] 15.3 g/dL 14.0-18.0 [facility] Laboratory - Chemistry and C hemistry - challengeon 07-10-2023 Albumin [Mass/Vol] 3.4 g/dL 3.4-5.0 [facility] ALP [Catalytic activity/Vol] 91 U/L 46-116 [facility] ALT [Catalytic activity/Vol] 15 U/L 16-63 [facility] AST [Catalytic activity/Vol] 25 U/L 15-37 [facility] Bilirubin [Mass/Vol] 1.1 mg/dL 0.2-1.0 [facility] Calcium [Mass/Vol] 8.8 mg/dL 8.5-10.1 [facility] Chloride [Moles/Vol] 104 mmol/L 98-107 [facility] CO2 [Moles/Vol] 25.5 mmol/L 21.0-32.0 [place] Creatinine [Mass/Vol] 1.31 mg/dL 0.70-1.30 [facility] GFR/1.73 sq M.predicted MDRD (S/P/Bld) [Vol rate/Area] mL/min/{1.73_m2} >=60 [facility] Glucose [Mass/Vol] 164 mg/dL 74-106 [facility] Natriuretic peptide B (Bld) [Mass/Vol] 436.0 pg/mL <=1800.0 [facility] Potassium [Moles/Vol] 3.8 mmol/L 3.5-5.1 [facility] Protein [Mass/Vol] 7.3 g/dL 6.4-8.2 [facility] Sodium [Moles/Vol] 138 mmol/L 136-145 [facility] Urea nitrogen [Mass/Vol] 18.0 mg/dL 7.0-18.0 [facility] Urea nitrogen/Creatinin e [Mass ratio] 13.7 mg/mg [facility] Laboratory - Hematology and Cell countson 07-10-2023 Immature granulocytes/100 WBC (Bld) 0.3 % 0.0-0.5 [facility] Leukocytes [#/volume] correc analia for nucleated erythrocytes in Blood by Automated counon 07-10-2023 WBC corrected for nucl RBC Auto (Bld) [#/Vol] 6.3 10 3/uL 4.0-11.0 [facility] Lymphocytes Auto (Bld) [#/Vo l]on 07-10-2023 Lymphocytes (Bld) [#/Vol] 1.4 10 3/uL 1.2-3.8 [facility] Lymphocytes/100 WBC Auto (Bl d)on 07-10-2023 Lymphocytes/100 WBC (Bld) 22.1 % 20.5-60.0 [facility] MCH Auto (RBC) [Entitic mass ]on 07-10-2023 MCH (RBC) [Entitic mass] 34.5 pg 25.9-34.0 [facility] MCHC Auto (RBC) [Mass/Vol]on 07-10-2023 MCHC (RBC) [Mass/Vol] 33.3 g/dL 29.9-35.2 [facility] MCV Auto (RBC) [Entitic vol] on 07-10-2023 MCV (RBC) [Entitic vol] 103.6 fL 80.0-94.0 [facility] Monocytes Auto (Bld) [#/Vol] on 07-10-2023 Monocytes (Bld) [#/Vol] 0.5 10 3/uL 0.3-0.8 [facility] Monocytes/100 WBC Auto (Bld) on 07-10-2023 Monocytes/100 WBC (Bld) 8.1 % 1.7-12.0 [facility] Neutrophils Auto (Bld) [#/Vo l]on 07-10-2023 Neutrophils (Bld) [#/Vol] 4.1 10 3/uL 1.4-6.5 [facility] Neutrophils/100 WBC Auto (Bl d)on 07-10-2023 Neutrophils/100 WBC (Bld) 65.2 % 43.0-75.0 [facility] No Panel Informationon 07-09 Troponin I High Sensitivity 36.4 pg/mL 4.0-76.1 [facility] Comment on above: CUT-OFF POINTS HAVE [...] Eosinophils # (Auto) 0.2 10 3/uL 0.0-0.7 [facility] Immature Granulocyte # (Auto) 0.02 10 3/uL 0.00-0.03 [facility] Platelet mean volume Auto (B ld) [Entitic vol]on 07-10-2023 Platelet mean volume (Bld) [Entitic vol] 9.8 fL 9.5-13.5 [facility] Platelets Auto (Bld) [#/Vol] on 07-10-2023 Platelets (Bld) [#/Vol] 157 10 3/uL 150-450 [facility] RBC Auto (Bld) [#/Vol]on RBC (Bld) [#/Vol] 4.43 10 6/uL 4.70-6.10 [facility] Serum or plasma albumin/glob ulin mass ratioon 07-10-2023 Albumin/Globulin [Mass ratio] 0.9 {ratio} [facility] Serum or plasma anion gap de terminationon 07-10-2023 Anion gap [Moles/Vol] 12.3 mmol/L [facility] Office Visiton 05-14-2023 Follow-up visit [id number] Brannon Olson 1935 M Date Provider Department Center 05/14/2023 CAMACHO CARTWRIGHT [facility] Family History Problem Relation Age of Onset Coronary artery disease Mother Coronary artery disease Father Family Status - Relation Status Age at Mother Father Level of Service:29338 [place] OFFICE/OUTPATIENT ESTABLISHED LOW MDM 20 MIN Normal [facility] CBC AUTO DIFFon 08-14-2022 BASO # 0.0 103/ul Normal 0.0-0.1 [facility] Comment on above: Performed By: #### A LT, LIPID, BMP #### [facility] [address] [address] [address] Kaleb Desir Basophils/100 WBC (Bld) 0.5 % Normal 0.2-2.0 [facility] Comment on above: Performed By: #### A LT, LIPID, BMP #### [facility] [address] [address] [address] Kaleb Desir EO # 0.1 103/ul Normal 0.0-0.7 [facility] Comment on above: Performed By: #### A LT, LIPID, BMP #### [facility] [address] [place] [address] Dr. Kaleb Desir Eosinophils/100 WBC (Bld) 1.2 % Normal 0.9-7.0 [facility] Comment on above: Performed By: #### A LT, LIPID, BMP #### [facility] [address] [place] [address] Dr. Kaleb Desir Erythrocyte distribution width (RBC) [Ratio] 12.9 % Normal 11.0-15.0 [facility] Comment on above: Performed By: #### A LT, LIPID, BMP #### [facility] [address] [place] [address] Dr. Kaleb Desir Hematocrit (Bld) [Volume fraction] 38.6 % Critically low 42.0-54.0 [facility] Comment on above: Performed By: #### A LT, LIPID, BMP #### [facility] [address] [place] [address] Dr. Kaleb Desir Hemoglobin (Bld) [Mass/Vol] 13.1 g/dL Critically low 14.0-18.0 [facility] Comment on above: Performed By: #### A LT, LIPID, BMP #### [facility] [address] [place] [address] Dr. Kaleb Desir IG # 0.03 10e3/ul Normal 0.00-0.03 [facility] Comment on above: Performed By: #### A LT, LIPID, BMP #### [facility] [address] [place] [address] Dr. Kaleb Desir IG % 0.3 % Normal 0.0-0.5 [facility] Comment on above: Performed By: #### A LT, LIPID, BMP #### [facility] [address] [place] [address] Dr. Kaleb Desir LYMPH # 0.9 103/ul Critically low 1.2-3.8 [facility] Comment on above: Performed By: #### A LT, LIPID, BMP #### [facility] [address] [place] [address] Dr. Kaleb Desir Lymphocytes/100 WBC (Bld) 10.3 % Critically low 20.5-60.0 [facility] Comment on above: Performed By: #### A LT, LIPID, BMP #### [facility] [address] [place] [address] Dr. Kaleb Desir MANUAL DIFF REQ NO Normal [facility] Comment on above: Performed By: #### A LT, LIPID, BMP #### [facility] [address] [place] [address] Dr. Kaleb Desir MCH (RBC) [Entitic mass] 34.0 pg Normal 25.9-34.0 [facility] Comment on above: Performed By: #### A LT, LIPID, BMP #### [facility] [address] [place] [address] Dr. Kaleb Desir MCHC (RBC) [Mass/Vol] 33.9 g/dL Normal 29.9-35.2 [facility] Comment on above: Performed By: #### A LT, LIPID, BMP #### [facility] [address] [place] [address] Dr. Kaleb Desir MCV (RBC) [Entitic vol] 100.3 fL Critically high 80.0-94.0 [facility] Comment on above: Performed By: #### A LT, LIPID, BMP #### [facility] [address] [place] [address] Dr. Kaleb Desir MONO # 0.8 103/ul Normal 0.3-0.8 [facility] Comment on above: Performed By: #### A LT, LIPID, BMP #### [facility] [address] [place] [address] Dr. Kaleb Desir Monocytes/100 WBC (Bld) 9.2 % Normal 1.7-12.0 [facility] Comment on above: Performed By: #### A LT, LIPID, BMP #### [facility] [address] [place] [address] Dr. Kaleb Desir NEUT # 7.0 103/ul Critically high 1.4-6.5 [facility] Comment on above: Performed By: #### A LT, LIPID, BMP #### [facility] [address] [address] [address] Kaleb Desir Neutrophils/100 WBC (Bld) 78.5 % Critically high 43.0-75.0 [facility] Comment on above: Performed By: #### A LT, LIPID, BMP #### [facility] [address] [address] [address] Kaleb Desir Platelet mean volume (Bld) [Entitic vol] 9.0 fL Critically low 9.5-13.5 [facility] Comment on above: Performed By: #### A LT, LIPID, BMP #### [facility] [address] [address] [address] Kaleb Desir PLT 164 103/ul Normal 150-450 [facility] Comment on above: Performed By: #### A LT, LIPID, BMP #### [facility] [address] [address] [address] Kaleb Desir RBC 3.85 106/ul Critically low 4.70-6.10 [facility] Comment on above: Performed By: #### A LT, LIPID, BMP #### [facility] [address] [address] [address] Kaleb Desir WBC 8.9 103/ul Normal 4.0-11.0 [facility] Comment on above: Performed By: #### A LT, LIPID, BMP #### [facility] [address] [place] [address] ABD/PELVIS WO CONon [...] Colt CALABRESE Date: 2022-08-14 03:24 Normal [facility] ER URINE PROFILEon 3 Bilirubin Ql (U) Negative Normal NEGATIVE [facility] Comment on above: Performed By: #### A LT, LIPID, BMP #### [facility] [address] [place] [address] Dr. Kaleb Desir Clarity (U) CLEAR Normal CLEAR [facility] Comment on above: Performed By: #### A LT, LIPID, BMP #### [facility] [address] [address] [address] Kaleb Desir Color (U) YELLOW Normal YELLOW [facility] Comment on above: Performed By: #### A LT, LIPID, BMP #### [facility] [address] [place] [address] Dr. Kaleb Desir ERUAHD A micrscopic examina tion will be performed if indicated. Normal [facility] Comment on above: Performed By: #### A LT, LIPID, BMP #### [facility] [address] [address] [address] Kaleb Desir Glucose Ql (U) Negative Normal NEGATIVE [facility] Comment on above: Performed By: #### A LT, LIPID, BMP #### [facility] [address] [place] [address] Dr. Kaleb Desir Hemoglobin Ql (U) TRACE-INTACT Abnormal NEGATIVE [facility] Comment on above: Performed By: #### A LT, LIPID, BMP #### [facility] [address] [place] [address] Dr. Kaleb Desir Ketones Ql (U) TRACE Abnormal NEGATIVE [facility] Comment on above: Performed By: #### A LT, LIPID, BMP #### [facility] [address] [place] [address] Dr. Kaleb Desir LEUKOCYTES Negative Normal NEGATIVE [facility] Comment on above: Performed By: #### A LT, LIPID, BMP #### [facility] [address] [address] [address] Kaleb Desir Nitrite Ql (U) Negative Normal NEGATIVE [facility] Comment on above: Performed By: #### A LT, LIPID, BMP #### [facility] [address] [place] [address] Dr. Kaleb Desir pH (U) 5.5 [pH] Normal 5-9 [facility] Comment on above: Performed By: #### A LT, LIPID, BMP #### [facility] [address] [place] [address] Dr. Kaleb Desir SPEC GRAVITY >=1.030 Abnormal 1.005-<=1.0 25 [facility] Comment on above: Performed By: #### A LT, LIPID, BMP #### [facility] [address] [place] [address] Dr. Kaleb Desir UA PROTEIN Negative Normal NEGATIVE/ TRACE [facility] Comment on above: Performed By: #### A LT, LIPID, BMP #### [facility] [address] [place] [address] Dr. Kaleb Desir UR MICRO IND NOT INDICATED Normal [facility] Comment on above: Performed By: #### A LT, LIPID, BMP #### [facility] [address] [place] [address] Dr. Kaleb Desir Urobilinogen Qn (U) 0.2 {Silver'U}/dL Normal 0.2 - 1.0 [facility] Comment on above: Performed By: #### A LT, LIPID, BMP #### [facility] [address] [place] [address] Dr. Kaleb Desir LIPASEon 08-14-2022 Lipase [Catalytic activity/Vol] 91.0 U/L Normal 73.0-393.0 [facility] Comment on above: Performed By: #### C MP, LIPA #### [facility] [address] [place] [address] Dr. Kaleb Desir PROF 14(COMP METB)on 023 Albumin [Mass/Vol] 3.2 g/dL Critically low 3.4-5.0 [facility] Comment on above: Performed By: #### A LT, LIPID, BMP #### [facility] [address] [place] [address] Dr. Kaleb Desir Albumin/Globulin [Mass ratio] 1.0 {ratio} Normal [facility] Comment on above: Performed By: #### A LT, LIPID, BMP #### [facility] [address] [place] [address] Dr. Kaleb Desir ALP [Catalytic activity/Vol] 78 U/L Normal 46-116 [facility] Comment on above: Performed By: #### A LT, LIPID, BMP #### [facility] [address] [place] [address] Dr. Kaleb Desir ALT [Catalytic activity/Vol] 20 U/L Normal 16-63 [facility] Comment on above: Performed By: #### A LT, LIPID, BMP #### [facility] [address] [place] [address] Dr. Kaleb Desir Anion gap [Moles/Vol] 12.6 mmol/L Normal [facility] Comment on above: Performed By: #### A LT, LIPID, BMP #### [facility] [address] [place] [address] Dr. Kaleb Desir AST [Catalytic activity/Vol] 21 U/L Normal 15-37 [facility] Comment on above: Performed By: #### A LT, LIPID, BMP #### [facility] [address] [place] [address] Dr. Kaleb Desir Bilirubin [Mass/Vol] 0.8 mg/dL Normal 0.2-1.0 [facility] Comment on above: Performed By: #### A LT, LIPID, BMP #### [facility] [address] [place] [address] Dr. Kaleb Desir Calcium [Mass/Vol] 8.5 mg/dL Normal 8.5-10.1 [facility] Comment on above: Performed By: #### A LT, LIPID, BMP #### [facility] [address] [place] [address] Dr. Kaleb Desir Chloride [Moles/Vol] 105 mmol/L Normal 98-107 [facility] Comment on above: Performed By: #### A LT, LIPID, BMP #### [facility] [address] [place] [address] Dr. Kaleb Desir CO2 [Moles/Vol] 24.4 mmol/L Normal 21.0-32.0 [facility] Comment on above: Performed By: #### A LT, LIPID, BMP #### [facility] [address] [place] [address] Dr. Kaleb Desir Creatinine [Mass/Vol] 1.13 mg/dL Normal 0.70-1.30 [facility] Comment on above: Performed By: #### A LT, LIPID, BMP #### [facility] [address] [place] [address] Dr. Kaleb Desir EGFR-AF BRAZILIAN >60 Normal >=60 [facility] Comment on above: Performed By: #### A LT, LIPID, BMP #### [facility] [address] [place] [address] Dr. Kaleb Desir EGFR-NON AF BRAZILIAN >60 Normal >=60 [facility] Comment on above: Performed By: #### A LT, LIPID, BMP #### [facility] [address] [address] [address] Kaleb Desir Globulin (S) [Mass/Vol] 3.1 g/dL Normal [facility] Comment on above: Performed By: #### A LT, LIPID, BMP #### [facility] [address] [address] [address] Kaleb Desir Glucose [Mass/Vol] 129 mg/dL Critically high 74-106 [facility] Comment on above: Performed By: #### A LT, LIPID, BMP #### [facility] [address] [address] [address] Kaleb Desir Potassium [Moles/Vol] 4.0 mmol/L Normal 3.5-5.1 [facility] Comment on above: Performed By: #### A LT, LIPID, BMP #### [facility] [address] [place] [address] Dr. Kaleb Desir Protein [Mass/Vol] 6.3 g/dL Critically low 6.4-8.2 [facility] Comment on above: Performed By: #### A LT, LIPID, BMP #### [facility] [address] [address] [address] Kaleb Desir Sodium [Moles/Vol] 138 mmol/L Normal 136-145 [facility] Comment on above: Performed By: #### A LT, LIPID, BMP #### [facility] [address] [address] [address] Kaleb Desir Urea nitrogen [Mass/Vol] 15.0 mg/dL Normal 7.0-18.0 [facility] Comment on above: Performed By: #### A LT, LIPID, BMP #### [facility] [address] [address] [address] Kaleb Desir Urea nitrogen/Creatinin e [Mass ratio] 13.3 mg/mg Normal [facility] Comment on above: Performed By: #### A LT, LIPID, BMP #### [facility] [address] [place] [address] CSPINE WO CONon [...] by: KAILASH BARNES Date: 2022-06-11 21:51 Normal [facility] CT HEAD WO CONon 06-11-2022 CT [...] EDUARDO SINGLETON Date: 2022-06-11 21:57 Normal [facility] STOOL CULTUREon 02-20-2022 Campylobacter Culture Final report Normal [facility] Comment on above: Performed By: #### C XSTOOL #### [facility] [address] [place] [address] Dr. Kaleb Desir E coli Shiga Toxin EIA Negative Normal Negative [facility] Comment on above: Performed By: #### C XSTOOL #### [facility] [address] [address] [address] Kaleb Desir Result 1 Comment Normal [facility] Comment on above: Result Comment: No S almonella or Shigella recovered. Performed By: #### C XSTOOL #### [facility] [address] [address] [address] Kaleb Desir Result Comment: No C ampylobacter species isolated. Salmonella/Shigell a Screen Final report Normal [facility] Comment on above: Performed By: #### C XSTOOL #### [facility] [address] [address] [address] Kaleb Desir C. DIFF PCRon 02-16-2022 C. DIFFICILE PCR Negative Normal NEGATIVE [facility] Comment on above: Performed By: #### C DIFPOC #### [facility] [address] [address] [address] Kaleb Desir CBC AUTO DIFFon 02-16-2022 BASO # 0.0 103/ul Normal 0.0-0.1 [facility] Comment on above: Performed By: #### C BC #### [facility] [address] [address] [address] Kaleb Desir Basophils/100 WBC (Bld) 0.6 % Normal 0.2-2.0 [facility] Comment on above: Performed By: #### C BC #### [facility] [address] [address] [address] Kaleb Desir EO # 0.3 103/ul Normal 0.0-0.7 [facility] Comment on above: Performed By: #### C BC #### [facility] [address] [address] [address] Kaleb Desir Eosinophils/100 WBC (Bld) 4.0 % Normal 0.9-7.0 [facility] Comment on above: Performed By: #### C BC #### [facility] [address] [place] [address] Dr. Kaleb Desir Erythrocyte distribution width (RBC) [Ratio] 12.4 % Normal 11.0-15.0 [facility] Comment on above: Performed By: #### C BC #### [facility] [address] [place] [address] Dr. Kaleb Desir Hematocrit (Bld) [Volume fraction] 40.5 % Critically low 42.0-54.0 [facility] Comment on above: Performed By: #### C BC #### [facility] [address] [place] [address] Dr. Kaleb Desir Hemoglobin (Bld) [Mass/Vol] 13.7 g/dL Critically low 14.0-18.0 [facility] Comment on above: Performed By: #### C BC #### [facility] [address] [place] [address] Dr. Kaleb Desir IG # 0.01 10e3/ul Normal 0.00-0.03 [facility] Comment on above: Performed By: #### C BC #### [facility] [address] [place] [address] Dr. Kaleb Desir IG % 0.1 % Normal 0.0-0.5 [facility] Comment on above: Performed By: #### C BC #### [facility] [address] [address] [address] Kaleb Desir LYMPH # 1.7 103/ul Normal 1.2-3.8 [facility] Comment on above: Performed By: #### C BC #### [facility] [address] [address] [address] Kaleb Desir Lymphocytes/100 WBC (Bld) 25.5 % Normal 20.5-60.0 [facility] Comment on above: Performed By: #### C BC #### [facility] [address] [place] [address] Dr. Kaleb Desir MANUAL DIFF REQ NO Normal [facility] Comment on above: Performed By: #### C BC #### [facility] [address] [place] [address] Dr. Kaleb Desir MCH (RBC) [Entitic mass] 34.4 pg Critically high 25.9-34.0 [facility] Comment on above: Performed By: #### C BC #### [facility] [address] [place] [address] Dr. Kaleb Desir MCHC (RBC) [Mass/Vol] 33.8 g/dL Normal 29.9-35.2 [facility] Comment on above: Performed By: #### C BC #### [facility] [address] [place] [address] Dr. Kaleb Desir MCV (RBC) [Entitic vol] 101.8 fL Critically high 80.0-94.0 [facility] Comment on above: Performed By: #### C BC #### [facility] [address] [place] [address] Dr. Kaleb Desir MONO # 0.9 103/ul Critically high 0.3-0.8 [facility] Comment on above: Performed By: #### C BC #### [facility] [address] [place] [address] Dr. Kaleb Desir Monocytes/100 WBC (Bld) 12.4 % Critically high 1.7-12.0 [facility] Comment on above: Performed By: #### C BC #### [facility] [address] [address] [address] Kaleb Desir NEUT # 3.9 103/ul Normal 1.4-6.5 [facility] Comment on above: Performed By: #### C BC #### [facility] [address] [address] [address] Kaleb Desir Neutrophils/100 WBC (Bld) 57.4 % Normal 43.0-75.0 [facility] Comment on above: Performed By: #### C BC #### [facility] [address] [address] [address] Kaleb Desir Platelet mean volume (Bld) [Entitic vol] 9.0 fL Critically low 9.5-13.5 [facility] Comment on above: Performed By: #### C BC #### [facility] [address] [place] [address] Dr. Kaleb Desir PLT 181 103/ul Normal 150-450 [facility] Comment on above: Performed By: #### C BC #### [facility] [address] [place] [address] Dr. Kaleb Desir RBC 3.98 106/ul Critically low 4.70-6.10 [facility] Comment on above: Performed By: #### C BC #### [facility] [address] [place] [address] Dr. Kaleb Desir WBC 6.8 103/ul Normal 4.0-11.0 [facility] Comment on above: Performed By: #### C BC #### [facility] [address] [place] [address] Dr. Kaleb Desir PROF CHEM 8 (BAS METB)on Anion gap [Moles/Vol] 11.0 mmol/L Normal [facility] Comment on above: Performed By: #### A LT, LIPID, BMP #### [facility] [address] [place] [address] Dr. Kaleb Desir Calcium [Mass/Vol] 8.9 mg/dL Normal 8.5-10.1 [facility] Comment on above: Performed By: #### A LT, LIPID, BMP #### [facility] [address] [address] [address] Kaleb Desir Chloride [Moles/Vol] 105 mmol/L Normal 98-107 [facility] Comment on above: Performed By: #### A LT, LIPID, BMP #### [facility] [address] [address] [address] Kaleb Desir CO2 [Moles/Vol] 26.6 mmol/L Normal 21.0-32.0 [facility] Comment on above: Performed By: #### A LT, LIPID, BMP #### [facility] [address] [address] [address] Kaleb Desir Creatinine [Mass/Vol] 1.02 mg/dL Normal 0.70-1.30 [facility] Comment on above: Performed By: #### A LT, LIPID, BMP #### [facility] [address] [place] [address] Dr. Kaleb Desir EGFR-AF BRAZILIAN >60 Normal >=60 [facility] Comment on above: Performed By: #### A LT, LIPID, BMP #### [facility] [address] [place] [address] Dr. Kaleb Desir EGFR-NON AF BRAZILIAN >60 Normal >=60 [facility] Comment on above: Performed By: #### A LT, LIPID, BMP #### [facility] [address] [address] [address] Kaleb Desir Glucose [Mass/Vol] 102 mg/dL Normal 74-106 [facility] Comment on above: Performed By: #### A LT, LIPID, BMP #### [facility] [address] [place] [address] Dr. Kaleb Desir Potassium [Moles/Vol] 3.6 mmol/L Normal 3.5-5.1 [facility] Comment on above: Performed By: #### A LT, LIPID, BMP #### [facility] [address] [place] [address] Dr. Kaleb Desir Sodium [Moles/Vol] 139 mmol/L Normal 136-145 [facility] Comment on above: Performed By: #### A LT, LIPID, BMP #### [facility] [address] [place] [address] Dr. Kaleb Desir Urea nitrogen [Mass/Vol] 14.0 mg/dL Normal 7.0-18.0 [facility] Comment on above: Performed By: #### A LT, LIPID, BMP #### [facility] [address] [place] [address] Dr. Kaleb Desir Urea nitrogen/Creatinin e [Mass ratio] 13.7 mg/mg Normal [facility] Comment on above: Performed By: #### A LT, LIPID, BMP #### [facility] [address] [place] [address] Dr. Kaleb Desir CBC AUTO DIFFon 01-19-2022 BASO # 0.1 103/ul Normal 0.0-0.1 [facility] Comment on above: Performed By: #### A LT, LIPID, BMP #### [facility] [address] [place] [address] Dr. Kaleb Desir Basophils/100 WBC (Bld) 0.8 % Normal 0.2-2.0 [facility] Comment on above: Performed By: #### A LT, LIPID, BMP #### [facility] [address] [place] [address] Dr. Kaleb Desir EO # 0.4 103/ul Normal 0.0-0.7 [facility] Comment on above: Performed By: #### A LT, LIPID, BMP #### [facility] [address] [place] [address] Dr. Kaleb Desir Eosinophils/100 WBC (Bld) 5.8 % Normal 0.9-7.0 [facility] Comment on above: Performed By: #### A LT, LIPID, BMP #### [facility] [address] [place] [address] Dr. Kaleb Desir Erythrocyte distribution width (RBC) [Ratio] 12.2 % Normal 11.0-15.0 [facility] Comment on above: Performed By: #### A LT, LIPID, BMP #### [facility] [address] [place] [address] Dr. Kaleb Desir Hematocrit (Bld) [Volume fraction] 41.8 % Critically low 42.0-54.0 [facility] Comment on above: Performed By: #### A LT, LIPID, BMP #### [facility] [address] [place] [address] Dr. Kaleb Desir Hemoglobin (Bld) [Mass/Vol] 14.0 g/dL Normal 14.0-18.0 [facility] Comment on above: Performed By: #### A LT, LIPID, BMP #### [facility] [address] [place] [address] Dr. Kaleb Desir IG # 0.01 10e3/ul Normal 0.00-0.03 [facility] Comment on above: Performed By: #### A LT, LIPID, BMP #### [facility] [address] [place] [address] Dr. Kaleb Desir IG % 0.2 % Normal 0.0-0.5 [facility] Comment on above: Performed By: #### A LT, LIPID, BMP #### [facility] [address] [place] [address] Dr. Kaleb Desir LYMPH # 1.9 103/ul Normal 1.2-3.8 [facility] Comment on above: Performed By: #### A LT, LIPID, BMP #### [facility] [address] [place] [address] Dr. Kaleb Desir Lymphocytes/100 WBC (Bld) 31.7 % Normal 20.5-60.0 [facility] Comment on above: Performed By: #### A LT, LIPID, BMP #### [facility] [address] [place] [address] Dr. Kaleb Desir MANUAL DIFF REQ NO Normal [facility] Comment on above: Performed By: #### A LT, LIPID, BMP #### [facility] [facility] [address] [place] [address] Dr. Kaleb Desir MCH (RBC) [Entitic mass] 34.1 pg Critically high 25.9-34.0 [facility] Comment on above: Performed By: #### A LT, LIPID, BMP #### [facility] [address] [place] [address] Dr. Kaleb Desir MCHC (RBC) [Mass/Vol] 33.5 g/dL Normal 29.9-35.2 [facility] Comment on above: Performed By: #### A LT, LIPID, BMP #### [facility] [address] [place] [address] Dr. Kaleb Desir MCV (RBC) [Entitic vol] 101.7 fL Critically high 80.0-94.0 [facility] Comment on above: Performed By: #### A LT, LIPID, BMP #### [facility] [address] [place] [address] Dr. Kaleb Desir MONO # 0.8 103/ul Normal 0.3-0.8 [facility] Comment on above: Performed By: #### A LT, LIPID, BMP #### [facility] [address] [place] [address] Dr. Kaleb Desir Monocytes/100 WBC (Bld) 13.8 % Critically high 1.7-12.0 [facility] Comment on above: Performed By: #### A LT, LIPID, BMP #### [facility] [address] [place] [address] Dr. Kaleb Desir NEUT # 2.9 103/ul Normal 1.4-6.5 [facility] Comment on above: Performed By: #### A LT, LIPID, BMP #### [facility] [address] [place] [address] Dr. Kaleb Desir Neutrophils/100 WBC (Bld) 47.7 % Normal 43.0-75.0 [facility] Comment on above: Performed By: #### A LT, LIPID, BMP #### [facility] [address] [place] [address] Dr. Kaleb Desir Platelet mean volume (Bld) [Entitic vol] 8.9 fL Critically low 9.5-13.5 [facility] Comment on above: Performed By: #### A LT, LIPID, BMP #### [facility] [address] [place] [address] Dr. Kaleb Desir PLT 174 103/ul Normal 150-450 [facility] Comment on above: Performed By: #### A LT, LIPID, BMP #### [facility] [address] [address] [address] Kaleb Desir RBC 4.11 106/ul Critically low 4.70-6.10 [facility] Comment on above: Performed By: #### A LT, LIPID, BMP #### [facility] [address] [address] [address] Kaleb Desir WBC 6.0 103/ul Normal 4.0-11.0 [facility] Comment on above: Performed By: #### A LT, LIPID, BMP #### [facility] [address] [place] [address] Dr. Kaleb Desir LIPID PROFILEon 01-19-2022 CHOL-HDL RATIO NORM SEE BELOW Normal [facility] Comment on above: Result Comment: 3.3 - 4.4 LOW RISK 4.4 - 7.1 AVERAGE RISK 7.1 - 11.0 MODERATE RISK >11.0 HIGH RISK Performed By: #### A LT, LIPID, BMP #### [facility] [address] [address] [address] Kaleb Desir Cholesterol [Mass/Vol] 137 mg/dL Normal <=200 [facility] Comment on above: Performed By: #### A LT, LIPID, BMP #### [facility] [address] [place] [address] Dr. Kaleb Desir Cholesterol in HDL [Mass/Vol] 58 mg/dL Normal 40-60 [facility] Comment on above: Performed By: #### A LT, LIPID, BMP #### [facility] [address] [place] [address] Dr. Kaleb Desir Cholesterol in LDL [Mass/Vol] 68.6 mg/dL Normal [facility] Comment on above: Performed By: #### A LT, LIPID, BMP #### [facility] [address] [address] [address] Kaleb Desir Cholesterol.total/ Cholesterol in HDL [Mass ratio] 2.4 {ratio} Normal [facility] Comment on above: Performed By: #### A LT, LIPID, BMP #### [facility] [address] [address] [address] Kaleb Desir HDL NORMAL > or = 60 mg/dl - LO W CARDIOVASCULAR RISK <40 mg/dl - HIGH CARDIOVASCULAR RISK Normal [facility] Comment on above: Performed By: #### A LT, LIPID, BMP #### [facility] [address] [address] [address] Kaleb Desir LDL CALC NORMAL SEE BELOW Normal [facility] Comment on above: Result Comment: <100 mg/dl OPTIMAL 100 - 129 mg/dl NEAR OR ABOVE OPTIMAL 130 - 159 mg/dl BORDERLINE HIGH 160 - 189 mg/dl HIGH >190 mg/dl VERY HIGH Performed By: #### A LT, LIPID, BMP #### [facility] [address] [place] [address] Dr. Kaleb Desir Triglyceride [Mass/Vol] 52 mg/dL Normal <=150 [facility] Comment on above: Performed By: #### A LT, LIPID, BMP #### [facility] [address] [place] [address] Dr. Kaleb Desir VLDL CALC 10.4 mg/dL Normal [facility] Comment on above: Performed By: #### A LT, LIPID, BMP #### [facility] [address] [place] [address] Dr. Kaleb Desir PROF CHEM 8 (BAS METB)on Anion gap [Moles/Vol] 13.1 mmol/L Normal [facility] Comment on above: Performed By: #### A LT, LIPID, BMP #### [facility] [address] [address] [address] Kaleb Desir Calcium [Mass/Vol] 8.9 mg/dL Normal 8.5-10.1 [facility] Comment on above: Performed By: #### A LT, LIPID, BMP #### [facility] [address] [address] [address] Kaleb Desir Chloride [Moles/Vol] 105 mmol/L Normal 98-107 [facility] Comment on above: Performed By: #### A LT, LIPID, BMP #### [facility] [address] [address] [address] Kaleb Desir CO2 [Moles/Vol] 25.0 mmol/L Normal 21.0-32.0 [facility] Comment on above: Performed By: #### A LT, LIPID, BMP #### [facility] [address] [address] [address] Kaleb Desir Creatinine [Mass/Vol] 1.17 mg/dL Normal 0.70-1.30 [facility] Comment on above: Performed By: #### A LT, LIPID, BMP #### [facility] [address] [address] [address] Kaleb Desir EGFR-AF BRAZILIAN >60 Normal >=60 [facility] Comment on above: Performed By: #### A LT, LIPID, BMP #### [facility] [address] [place] [address] Dr. Kaleb Desir EGFR-NON AF BRAZILIAN 59 mL/min/1.73m2 Critically low >=60 [facility] Comment on above: Performed By: #### A LT, LIPID, BMP #### [facility] [address] [address] [address] Kaleb Desir Glucose [Mass/Vol] 103 mg/dL Normal 74-106 [facility] Comment on above: Performed By: #### A LT, LIPID, BMP #### [facility] [address] [address] [address] Kaleb Desir Potassium [Moles/Vol] 4.1 mmol/L Normal 3.5-5.1 [facility] Comment on above: Performed By: #### A LT, LIPID, BMP #### [facility] [address] [address] [address] Kaleb Desir Sodium [Moles/Vol] 139 mmol/L Normal 136-145 [facility] Comment on above: Performed By: #### A LT, LIPID, BMP #### [facility] [address] [address] [address] Kaleb Desir Urea nitrogen [Mass/Vol] 18.0 mg/dL Normal 7.0-18.0 [facility] Comment on above: Performed By: #### A LT, LIPID, BMP #### [facility] [address] [place], [place] [address] Dr. Kaleb Desir Urea nitrogen/Creatinin e [Mass ratio] 15.4 mg/mg Normal [facility] Comment on above: Performed By: #### A LT, LIPID, BMP #### [facility] [address] [place], [place] [address] Dr[facility] ALT [Catalytic activity/Vol] 21 U/L Normal 16-63 [facility] Comment on above: Performed By: #### A LT, LIPID, BMP #### [facility] [address] [address] [address] Kaleb Desir Cardiovascular Lab Reporton 06-13-2020 Cardiovascular Lab Report [facility] Patient Name: Brannon Olson MR #: [id number] [facility] Physician: Camacho Singer MD Service Date: 06/13/2020 Department of Birthdate: 1935 Medicine Room #: CC Division of Cardiology Adult Cardiovascular Services [address] [place] [address] Cardiovascular Laboratory Report [employer] AND [...] the sternum on the left using the [employer] tool. The loop recorder was then injected [...] complicati (more content not included)... Normal [facility] Vital Signs Date Time Vital Sign Value Performing Clinician Facility 02-17-2024 11:31-0400 Body mass index (BMI) [Ratio] 22.4 kg/m2 [facility] 02-17-2024 11:31-0400 Diastolic blood pressure 89 mm[Hg] [facility] 02-17-2024 11:31-0400 Systolic blood pressure 139 mm[Hg] [facility] 02-17-2024 11:02-0400 Body height 172.72 cm [facility] 02-17-2024 11:02-0400 Body weight 66.79 kg [facility] 02-17-2024 11:02-0400 Heart rate 60 /min [facility] 02-17-2024 11:02-0400 Respiratory rate 12 /min [facility] 10-17-2023 10:39-0400 Body height 172.72 cm [facility] 10-17-2023 10:39-0400 Body mass index (BMI) [Ratio] 21.4 kg/m2 [facility] 10-17-2023 10:39-0400 Body weight 64.12 kg [facility] 10-17-2023 10:39-0400 Diastolic blood pressure 56 mm[Hg] [facility] 10-17-2023 10:39-0400 Heart rate 63 /min [facility] 10-17-2023 10:39-0400 Respiratory rate 12 /min [facility] 10-17-2023 10:39-0400 Systolic blood pressure 133 mm[Hg] [facility] 08-20-2023 10:13-0400 Blood Pressure Location HEATHER AZRA [facility] 08-20-2023 10:13-0400 Body temperature 97.34 [degF] HEATHER AZRA [facility] 08-20-2023 10:13-0400 Diastolic blood pressure 57 mm[Hg] HEATHER AZRA [facility] 08-20-2023 10:13-0400 Heart rate 64 /min HEATHER AZRA [facility] 08-20-2023 10:13-0400 Respiratory rate 19 /min HEATHER AZRA [facility] 08-20-2023 10:13-0400 Systolic blood pressure 105 mm[Hg] HEATHER AZRA [facility] 06-20-2023 10:42-0500 Body height 172.72 cm [facility] 06-20-2023 10:42-0500 Body mass index (BMI) [Ratio] 22 kg/m2 [facility] 06-20-2023 10:42-0500 Body weight 65.77 kg [facility] 06-20-2023 10:42-0500 Diastolic blood pressure 66 mm[Hg] [facility] 02-15-2024 10:42-0500 Heart rate 103 /min [facility] 06-20-2023 10:42-0500 Respiratory rate 20 /min [facility] 06-20-2023 10:42-0500 Systolic blood pressure 102 mm[Hg] [facility] 05-09-2023 11:00-0500 Body height 172.72 cm Miguel Ball Other [facility] 05-09-2023 11:00-0500 Body mass index (BMI) [Ratio] 21.98 kg/m2 Miguel Ball Other [facility] [employer] Other 05-09-2023 11:00-0500 Body weight 65.59 kg Miguel Ball Other [facility] [employer] Other 05-09-2023 11:00-0500 Body weight 65.58 kg [facility] 05-09-2023 11:00-0500 Diastolic blood pressure 66 mm[Hg] Miguel Ball Other [facility] 05-09-2023 11:00-0500 Respiratory rate 12 /min Miguel Ball Other [facility] [employer] Other 05-09-2023 11:00-0500 Systolic blood pressure 118 mm[Hg] Miguel Ball Other [facility] 10-26-2022 10:30-0400 Body height 172.72 cm Miguel Ball Other [facility] [employer] Other 10-26-2022 10:30-0400 Body mass index (BMI) [Ratio] 21.89 kg/m2 Miguel Ball Other [employer] Other 10-26-2022 10:30-0400 Body weight 65.32 kg Miguel Ball Other [facility] [employer] Other 10-26-2022 10:30-0400 Diastolic blood pressure 60 mm[Hg] Miguel Ball Other [facility] [employer] Other 10-26-2022 10:30-0400 Respiratory rate 12 /min Miguel Guevara Other [facility] [employer] Other 10-26-2022 10:30-0400 Systolic blood pressure 104 mm[Hg] Miguel Guevara Other [facility] [employer] Other 08-17-2022 08:47-0400 Blood Pressure Location Conner SÁNCHEZ [facility] 08-17-2022 08:47-0400 Diastolic blood pressure 76 mm[Hg] Conner SÁNCHEZ [facility] 08-17-2022 08:47-0400 Heart rate 80 /min Conner SÁNCHEZ [facility] 08-17-2022 08:47-0400 Respiratory rate 16 /min Conner SÁNCHEZ [facility] 08-17-2022 08:47-0400 Systolic blood pressure 128 mm[Hg] Conner SÁNCHEZ [facility] 08-14-2021 09:20-0400 Blood Pressure Location Conner SÁNCHEZ [facility] 08-14-2021 09:20-0400 Diastolic blood pressure 76 mm[Hg] Conner SÁNCHEZ [facility] 08-14-2021 09:20-0400 Heart rate 61 /min Conner SÁNCHEZ [facility] 08-14-2021 09:20-0400 Systolic blood pressure 160 mm[Hg] Conner SÁNCHEZ [facility] Jorge L Encounters Encounter Date Encounter Type Care Provider Facility Start: 02-17-2024 End: 02-17-2024 ambulatory [facility] Work Phone: Start: 02-17-2024 End: 02-17-2024 Patient encounter procedure [facility] Work Phone: Start: 02-14-2024 Patient encounter procedure [facility] Start: 02-07-2024 Non-patient / Non-visit [facility] Work Phone: Start: 02-06-2024 ambulatory [facility] Start: 01-28-2024 End: 01-28-2024 ambulatory [facility] Work Phone: Start: 01-28-2024 End: 01-28-2024 Patient encounter procedure [facility] Work Phone: Start: 01-28-2024 End: 01-28-2024 ambulatory FATEMEH KELLY Not Available Start: 01-23-2024 End: 01-23-2024 ambulatory HAWK HILL Not Available Start: 01-23-2024 End: 01-23-2024 ambulatory HAWK HILL Not Available Start: 01-14-2024 End: 01-14-2024 ambulatory [facility] Start: 12-26-2023 ambulatory [facility] Start: 12-17-2023 ambulatory SILVERIO [facility] Start: 12-12-2023 End: 12-12-2023 ambulatory ANUM FOLEY Not Available Start: 12-04-2023 End: [facility]-04[facility] Start: 11-14-2023 End: 11-14-2023 ambulatory ANUM FOLEY Not Available Start: 10-29-2023 ambulatory CAMACHO [facility] Start: 10-24-2023 End: 10-24-2023 ambulatory ANUM A ALAINA Not Available Start: 10-17-2023 End: 10-17-2023 ambulatory [facility] Work Phone: Start: 10-17-2023 End: 10-17-2023 Patient encounter procedure [facility] Work Phone: Start: 10-15-2023 ambulatory SILVERIO [facility] Start: 10-15-2023 ambulatory SILVERIO [facility] Start: 10-10-2023 End: 10-10-2023 ambulatory ANUM FOLEY Not Available Start: 10-09-2023 ambulatory CAMACHO [facility] Start: 09-26-2023 End: 09-26-2023 ambulatory ANUM FOLEY Not Available Start: 09-12-2023 End: 09-12-2023 ambulatory ANUM Marcella FOLEY Not Available Start: 09-11-2023 End: 09-11-2023 ambulatory FATEMEH KELLY Not Available Start: 09-02-2023 Non-patient / Non-visit [facility] Work Phone: Start: 08-29-2023 End: 08-29-2023 ambulatory SOPHIA HAMILTON Not Available Start: 08-29-2023 End: 08-29-2023 ambulatory ANUM Marcella FOLEY Not Available Start: 08-26-2023 End: 08-26-2023 ambulatory HAWK HILL Not Available Start: 08-20-2023 End: 08-21-2023 ambulatory HEATHER OQUENDO Facility: [facility] Start: 08-20-2023 End: 08-20-2023 Patient encounter procedure HEATHER OQUENDO [facility] Start: 08-15-2023 End: 08-15-2023 ambulatory ANUM FOLEY Not Available Start: 08-01-2023 End: 08-01-2023 ambulatory ANUM FOLEY Not Available Start: 07-29-2023 ambulatory CAMACHO [facility] Start: 07-18-2023 End: 07-18-2023 ambulatory ANUM FOLEY Not Available Start: 07-12-2023 End: 07-12-2023 ambulatory CHARITO MATILDA [facility] Start: 07-11-2023 End: 07-11-2023 ambulatory HAWK H[place] Not Available Start: 07-10-2023 Non-patient / Non-visit [facility] Work Phone: Start: 07-04-2023 End: 07-04-2023 ambulatory ANUM FOLEY Not Available Start: 06-20-2023 End: 06-20-2023 ambulatory [facility] Work Phone: Start: 06-20-2023 End: 06-20-2023 Patient encounter procedure [facility] Work Phone: Start: 06-04-2023 End: 06-04-2023 ambulatory HAWK H[place] Not Available Start: 05-29-2023 End: 05-29-2023 ambulatory Miguel Ismael Other [employer] Other Start: 05-29-2023 Telephone encounter Miguel Ismael FP [facility] Start: 05-27-2023 End: 05-27-2023 ambulatory Miguel Ismael Other [employer] Other Start: 05-27-2023 Telephone encounter Miguel Guevara FP [facility] Start: 05-15-2023 End: 05-15-2023 ambulatory Miguel Guevara Other [employer] Other Start: 05-15-2023 Telephone encounter Miguel Guevara FP [facility] Start: 05-15-2023 Patient encounter procedure [facility] Start: 05-14-2023 End: 05-14-2023 ambulatory [facility] Start: 05-13-2023 End: 05-13-2023 ambulatory Miguel Ball Other [employer] Other Start: 05-13-2023 Telephone encounter Miguel Ball FP [facility] Start: 05-09-2023 End: 05-09-2023 ambulatory Miguel Ball Other [employer] Other Start: 05-09-2023 Office outpatient vi sit 25 minutes Miguel Ball [facility] Start: 05-09-2023 End: 05-09-2023 Patient encounter procedure [facility] Work Phone: Start: 01-29-2023 End: 01-29-2023 ambulatory Miguel Ball Other [employer] Other Start: 01-29-2023 Telephone encounter Miguel Ball FP [facility] Start: 01-21-2023 End: 01-21-2023 ambulatory Miguel Ball Other [employer] Other Start: 01-21-2023 Telephone encounter Miguel Ball FP [facility] Start: 12-31-2022 End: 12-31-2022 ambulatory Miguel Ball Other [employer] Other Start: 12-31-2022 Telephone encounter Miguel Ball FP [facility] Start: 12-29-2022 End: 12-29-2022 ambulatory Miguel Ball Other [employer] Other Start: 12-29-2022 Telephone encounter Miguel Ball FP [facility] Start: 12-26-2022 End: 12-26-2022 ambulatory Miguel Ball Other [employer] Other Start: 12-26-2022 Telephone encounter Miguel Ball FP [facility] Start: 10-26-2022 End: 10-26-2022 ambulatory Miguel Ball Other [employer] Other Start: 10-26-2022 Office outpatient vi sit 25 minutes [facility] Start: 08-17-2022 End: 08-17-2022 Patient encounter procedure Conner SÁNCHEZ [facility] Start: 08-14-2022 End: 08-14-[address] MIGUEL GUEVARA Facility:[facility] Start: 06-11-2022 End: 06-12-2022 ambulatory KAILASH BARNES Facility:[facility] Start: 02-16-2022 End: 02-17-[address] MIGUEL GUEVARA Facility:[facility] Start: 01-19-2022 End: 01-20-[address] MIGUEL GUEVARA Facility:[facility] Start: 01-16-2022 Adult health examination Miguel Ismael Other [employer] Other Start: 01-16-2022 Encounter for genera l adult medical examination without abnormal findings Miguel Guevara Other [employer] Other Start: 08-14-2021 End: 08-14-2021 Patient encounter procedure Conner Tatiana SÁNCHEZ [facility] Procedures Date Procedure Procedure Detail Performing Clinician [...] SÁNCHEZ Start: 05-06-1997 Femoral herniorrhaphy - bilateral Thomascesar SÁNCHEZ Start: 05-06-1994 Coronary artery bypass graft Conner WINTERS Depression screening Temo Guevara Other Plan of Treatment Date Care Activity Detail Author Start: 06-20-2023 Patient referral [facility] Work Phone: Patient referral [facility] Work Phone: [facility] Immunizations Immunization Date Immunization Notes Care Provider Fa cility 01-28-2024 influenza, high dose seasonal, preservative-free [facility] 01-28-2023 influenza virus vaccine, unspecified formulation [facility] 01-28-2023 influenza, high dose seasonal, preservative-free Miguel Ismael Other [employer] [facility] [employer] Other 02-10-2022 COVID-19 Vaccine Pfi zer - Documentation Purposes Only Miguel Guevara Other [facility] 01-05-2022 influenza virus vaccine, split virus (incl. purified surface antigen) Miguel Ismael Other [employer] Other 01-05-2022 influenza virus vaccine, unspecified formulation [facility] 02-15-2021 influenza virus vaccine, unspecified formulation Conner PRINCESS [facility] 01-17-2021 influenza virus vaccine, split virus (incl. purified surface antigen) Miguel Guevara Other [employer] Other 01-17-2021 influenza virus vaccine, unspecified formulation [facility] 06-15-2020 SARS-CoV-2 (COVID-19 ) Ad26 vaccine, recombinant Conner PRINCESS [facility] 05-12-2020 SARS-CoV-2 (COVID-19 ) Ad26 vaccine, recombinant Conner SÁNCHEZ [facility] Jorge L 01-02-2020 influenza virus vaccine, split virus (incl. purified surface antigen) Miguel Guevara Other [facility] [employer] Other 01-02-2020 influenza virus vaccine, unspecified formulation [facility] 02-12-2018 influenza virus vaccine, split virus (incl. purified surface antigen) Miguel Guevara Other [facility] [employer] Other 02-12-2018 influenza virus vaccine, unspecified formulation [facility] 04-03-2017 pneumococcal conjuga te vaccine, 13 valent Miguel Guevara Other [facility] 03-22-2017 influenza virus vaccine, split virus (incl. purified surface antigen) Miguel Guevara Other [facility] [employer] Other 03-22-2017 influenza virus vaccine, unspecified formulation [facility] 02-08-2016 diphtheria, tetanus toxoids and acellular pertussis vaccine, unspecified formulation Miguel Guevara Other [facility] 01-03-2016 influenza virus vaccine, split virus (incl. purified surface antigen) Miguel Guevara Other [facility] [employer] Other 01-03-2016 influenza virus vaccine, unspecified formulation [facility] 05-10-2015 pneumococcal conjuga te vaccine, 13 valent Miguel Guevara Other [facility] 01-13-2014 tetanus and diphther ia toxoids, adsorbed, preservative free, for adult use (5 Lf of tetanus toxoid and 2 Lf of diphtheria toxoid) Miguel Guevara Other [facility] 03-11-2013 tetanus and diphther ia toxoids, adsorbed, preservative free, for adult use (5 Lf of tetanus toxoid and 2 Lf of diphtheria toxoid) Miguel Guevara Other [facility] 01-26-2013 tetanus and diphther ia toxoids, adsorbed, preservative free, for adult use (5 Lf of tetanus toxoid and 2 Lf of diphtheria toxoid) Miguel Guevara Other [facility] 01-21-2013 tetanus and diphther ia toxoids, adsorbed, preservative free, for adult use (5 Lf of tetanus toxoid and 2 Lf of diphtheria toxoid) Miguel Guevara Other [facility] 04-12-2010 pneumococcal polysaccharide vaccine, 23 valent Miguel Guevara Other [facility] Payers Date Payer Category Payer Medicare [id number] 1958 Unknown [id number] 1935 Unknown [id number] 2.16.84 0.1.578146.3.579.2.593 1936 Unknown [id number] 2.16.84 0.1.952990.3.579.2.593 1936 Unknown [id number] 2.16.84 0.1.494594.3.579.2.593 1936 Unknown [id number] 2.16.84 0.1.273843.3.579.2.593 1936 Unknown [id number] 2.16.8 40.1.250078.3.579.2.727 1936 Unknown [id number] 2.16.84 0.1.358319.3.579.2.1259 1936 Unknown [id number] 2.16.84 0.1.197697.3.579.2.1259 1936 Unknown [id number] 2.16.84 0.1.124161.3.579.2.1259 1936 Unknown [id number] 2.16.84 0.1.290757.3.579.2.1259 1936 Unknown [id number] 2.16.84 0.1.141058.3.579.2.1259 1936 Unknown [id number] 2.16.84 0.1.468769.3.579.2.1258 1936 Unknown [id number] 2.16.84 0.1.321767.3.579.2.1258 1936 Unknown [id number] 2.16.84 0.1.296098.3.579.2.1258 1936 Unknown [id number] 2.16.84 0.1.156291.3.579.2.1258 1936 Unknown [id number] 2.16.84 0.1.063561.3.579.2.1258 1936 Unknown [id number] 2.16.84 0.1.367170.3.579.2.1258 1936 Unknown [id number] 2.16.84 0.1.044615.3.579.2.1258 1936 Unknown [id number] 2.16.84 0.1.851408.3.579.2.1258 1936 Unknown [id number] 2.16.84 0.1.907401.3.579.2.1258 1936 Unknown [id number] 2.16.84 0.1.388057.3.579.2.1258 1936 Unknown [id number] 2.16.84 0.1.663828.3.579.2.1258 1936 Unknown [id number] 2.16.84 0.1.154040.3.579.2.1258 1936 Unknown [id number] 2.16.84 0.1.184188.3.579.2.1258 1936 Unknown [id number] 2.16.84 0.1.843556.3.579.2.1258 1936 Unknown [id number] 2.16.84 0.1.878993.3.579.2.1258 1936 Unknown [id number] 2.16.84 0.1.227627.3.579.2.1259 Social History Date Type Detail Facility Start: 08-14-2021 End: 06-17-2023 Tobacco smoking status Never smoked tobacco (finding) [facility] Tobacco smoking status Never [facility] Sex Assigned At Male [facility] Start: 1935 Sex Assigned At Male F [facility] Functional Status Date Assessment Result Facility 08-20-2023 Functional Status N/A [facility] 08-17-2022 Functional Status Yes [facility] Clinical Notes 08-14-2021 to 01-14-2024 Note Date & Type Note Facility 01-14-2024 Note DC Cardiology Consul t Note Reason for visit: [...] 06/13/2020 CARDIOVERSION 04/07/2019 (more content not included)... [facility] 12-04-2023 Note DC Cardiology - [facility] Subjective Brannon Olson is a 88 y.o. year old [...] of duodenal ulcer Increased frequency of urination assisted current use of anticoagulant therapy Osteoarthritis of hip Osteoarthritis of knee Peripheral venous insufficiency Poor urinary stream Primary hypertension Spondylosis of lumbar spine Urge incontinence of urine 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 Mitral valve insufficiency and aortic valve insufficiency Ischemic cardiomyopathy Chronic HFrEF (heart failure with reduced ejection fraction) ([facility]) Fatigue H/O atrial flutter Mild cognitive impairment Pain in right knee SNHL (sensorineural hearing loss) Stage 3a chronic kidney disease ([facility]) Family History Problem Relation Name Age of [...] capsule, if n (more content not included)... [facility] 07-12-2023 Note [facility] II- currently e uvolemic without exacerbation Continue GDMT- ASA, lipitor, farxiga, lasix Diuretic therapy, and lisinopril Monitor daily weights, I&O, fluid restriction 1.5-2L/day, renal function and electrolytes- [facility] 07-12-2023 Note Repeat echocardiogra m prior to next visit [facility] 07-12-2023 Note Hypertension is curr ently well controlled Continue lisinopril Renal function normal [facility] 07-12-2023 Note [facility] CARDIOLOGY PROGR ESS NOTE HPI: Brannon Olson is a 88 y.o. male here [...] is significant for CAD, hyperlipidemia and hypertension. [facility] 07/10/23 Review of Systems Cardiovascular: [...] that was performed by me with the [employer] rep today revealed multiple episodes of A-fib. [...] are 3 on (more content not included)... [facility] 07-12-2023 Note Lipid abnormalities are stable Continue statin [facility] 07-12-2023 Note 1 episode of angina that resolved with 1 NTG SL therefore will start imdur 30 mg daily Continue GDMT- ASA, lipitor, lisinopril- no beta sissy r/t bradycardia continue risk factor modifications- heart healthy diet, regular exercise as tolerated and continue all medications. [facility] 06-20-2023 Hospital Discharge instructions Ambulatory OrdersReferral to Audiology Time Frame: 06/20/23, Location: None SelectedReferral to Neurology Time Frame: 06/20/23, Location: None Selected [facility] Work Phone: 06-20-2023 Evaluation note Diagnosis Onset Date Mild cognitive impairment [place] Primary hypertension acute SNHL (sensorineural hearing loss) acute Stage 3a chronic kidney disease acute Cerumen impaction noneactive [facility] Work Phone: [phone] Evaluation note* Encounter Date Diagnosis Assessment Notes Treatment Notes Treatment Clinical Notes May, Chronic HFrEF (heart failure with reduced ejection fraction) (ICD-10 - I50.22) Echocardiogram: 12/2022 LVEF 45%, RV dilated, mild MR, [employer] Other 01-09-2024 NoteUT Cardiology Consult Note Reason [...] Financial Resource Strain: No (more content not included)...[facility]01-08-2024 Evaluation note* Encounter Date Diagnosis Assessment Notes Treatment Notes Treatment Clinical Notes May, Mild cognitive impairment (ICD-10 - G31.84) [employer] Other 01-04-2024 Evaluation note* Encounter Date Diagnosis [...] May, Fatigue, unspecified type (ICD-10 - R53.83) [employer] Other 09-18-2023 Evaluation note* Encounter Date Diagnosis Assessment Notes Treatment Notes Treatment Clinical Notes Jan, Essential hypertension (ICD-10 - I10) [employer] Other 08-28-2023 Evaluation note* Encounter Date Diagnosis Assessment Notes Treatment Notes Treatment Clinical Notes Dec, ASHD (arteriosclerotic heart disease) (ICD-10 - I25.10) NM Imaging: LVEF 40% [employer] Other 08-26-2023 Evaluation note* Encounter Date Diagnosis Assessment Notes Treatment Notes Treatment Clinical Notes Dec, ASHD (arteriosclerotic heart disease) (ICD-10 - I25.10) NM Imaging: LVEF 40% [employer] Other 08-23-2023 Evaluation note* Encounter Date Diagnosis Assessment Notes Treatment Notes Treatment Clinical Notes Dec, Lumbar spondylosis (ICD-10 - M47.816) [employer] Other 06-23-2023 Evaluation note* Encounter Date Diagnosis [...] prevent thromboembolic events. No bleeding complications Oct, assisted (current) use of opiate analgesic (ICD-10 - [...] report is being monitored every 90 days. [employer] Other 04-14-2023 Hospital Discharge instructions Follow Up Care 08/17/2022 09:23:38 With:PRINCESS GARCIA, Conner Simpson, URL Address: [facility] [address] , [place] [address]- [phone] When: Unknown [facility] 04-14-2023 Hospital Discharge instructions Patient Education 08/17/2022 [...] urethra. Follow these instructions at home: Take xucm-yyx-hchyzao and prescription medicines only as told by [...] 04/22/2006 Document Revised: 03/17/2019 Document Reviewed: 05/27/2017 [employer] Patient Education 2020 [employer]. Follow Up Care 08/14/2021 10:16:11 With:PRINCESS GARCIA, KAUSHIK Pandya Address: [facility] [address] , [place] [address]- [phone] When:Within 1 Year(s) Comments:1 year fu [facility] 04-11-2022 Hospital Discharge instructions Patient Education 08/14/2021 [...] reconstructed. Follow these instructions at home: Take tzca-hkx-iphjwpp and prescription medicines only as told by [...] 05/18/2016 Document Revised: 12/03/2018 Document Reviewed: 12/03/2018 [employer] Patient Education 2020 [employer] Master. 08/14/2021 10:10:57 Benign Prostatic Hyperplasia Benign Prostatic [...] urethra. Follow these instructions at home: Take csjf-kky-bxiwopi and prescription medicines only as told by [...] 04/22/2006 Document Revised: 03/17/2019 Document Reviewed: 05/27/2017 [employer] Patient Education 2020 [employer] Master. Follow Up Care 02/06/2021 12:37:54 With:PRINCESS GARCIA, Conner Simpson, KAUSHIK Address: [facility] [address] , [place] [address]- [phone] When:08/14/2022 Comments:f/u in 1 year [facility] chill complaint+Reason for visit Narrative* Chief Complaint flu shot 4 month f/u Reason for Visit Immunization due Chronic HFrEF (heart failure with reduced ejection fraction) Hypercholesterolemia Ischemic cardiomyopathy Medicare annual wellness visit, subsequent Mild cognitive impairment Primary hypertension Stage 3a chronic kidney disease Subclinical hypothyroidism [facility] Work Phone: Evaluation + Plan note Future Appointments Appointment Date:08/17/2022 08:45:00 AM Scheduled Provider:Conner SÁNCHEZ MD Location:[facility] Appointment Type:URO Office Visit [facility] evaluation + Plan note Future Appointments Appointment Date:08/19/2023 09:45:00 AM Scheduled Provider:Conner SÁNCHEZ MD Location:[facility] Appointment Type:URO Office Visit [facility] evaluation noteNo [employer] Other Evaluation note* Diagnosis Onset Date Resolution Status Mild cognitive impairment [place] Primary hypertension acute SNHL (sensorineural hearing loss) acute Stage 3a chronic kidney disease acute Cerumen impaction noneactive [facility] Work Phone: Evaluation note* Diagnosis Onset Date Resolution Status Chronic HFrEF (heart failure with reduced ejection fraction) acute Hypercholesterolemia acute Ischemic cardiomyopathy acut e Mild cognitive impairment [place] Primary hypertension acute SNHL (sensorineural hearing loss) acute Stage 3a chronic kidney disease acute [facility] Work Phone: Evaluation noteNo assessment information available [facility] Work Phone: Evaluation note* Diagnosis Onset Date Resolution Status Immunization due noneactive Chronic HFrEF (heart failure with reduced ejection fraction) acute Hypercholesterolemia acute Ischemic cardiomyopathy acut e Medicare annual wellness visit, subsequent acute Mild cognitive impairment [place] Primary hypertension acute Stage 3a chronic kidney disease acute Subclinical hypothyroidism a cute 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 Medical History HFrEF Medical History Ischemic cardiomyopathy Surgical History TURP, WITH CYSTOSCOPY Surgical History ABLATION, ARRHYTHMOG ENIC FOCUS, FOR ATRIAL FLUTTER, IN CARDIAC CATHETERIZATION Surgical History CABG Surgical History B/L HERNIORRPHAPHY Surgical History COLONSCOPY Surgical History EGD Hospitalization History SEE SURGICAL [employer] Other Hospital course Narrative No data available for this section [facility] progress note No data available for this section [facility] Summary Purpose Family History No Family History Records FoundNo Family History Records Found No data available for this section No Family History Records FoundNo Family History Records FoundNo Family History Records Found Advance Directives Advance Directive Response Recorded Date/ Time Advance [...] section and content) DATE CREATED AUTHOR 06/10/2021 [facility] DATE CREATED AUTHOR AUTHOR'S ORGANIZ ATION 08/16/2022 [facility] DATE CREATED AUTHOR AUTHOR'S ORGANIZ ATION 08/22/2023 [facility] DATE CREATED AUTHOR AUTHOR'S ORGANIZ ATION 01/30/2024 [facility] DATE CREATED AUTHOR AUTHOR'S ORGANIZ ATION 02/07/2024 [facility] Patient Care team informatio n (unrecognized [...] Inactive Member Role Status Dates Miguel Guevara , Primary Care Provide r, Attending Provider Active Start: June 20, 2023 End: June 20, 2023 Team Status: Active Member Role Status Dates Miguel Guevara , DO Primary Care Provide r, Attending Provider Active Start: July 10, 2023 Team Status: Active Member Role Status Dates Miguel Guevara , Primary Care Provider Active Start: February 07, 2024 Camacho Singer MD Attending Provider Active Start : February 07, 2024 Team Status: Inactive Member Role Status Dates Miguel Guevara DO Primary Care Provide r, Attending Provider Active Start: February 17, 2024 End: February 17, 2024 REASON FOR VISIT (unrecogniz ed section and [...] BE BASED ON THE PRIMARY CLINICAL RECORDS. [employer] [facility]. provides no warranty or guarantee of the accuracy or completeness of information in this document.
[2024-02-21 11:02] LABS: Free T4 0.83 ng/dL (0.76-1.46); Thyroid Stimulating Hormone 4.326 uIU/mL (0.358-3.740)
[2024-02-22 04:07] LABS: Vitamin B12 293 pg/mL (232-1245)
== END 2024-02-21 09:37 | disposition home or self-care (01) ==
LOC: LAB 09:36
PROVIDERS: PCP Internal Medicine; Visit Provider Internal Medicine
DX: D53.9 Nutritional anemia, unspecified (principal); R79.89 Other specified abnormal findings of blood chemistry
CPT/HCPCS: 36415; 82607; 82746; 83921; 84439; 84443

== ENCOUNTER 2024-04-12 08:50 | Emergency (ER) | payer MEDICARE, SELFPAY ==
[2024-04-12] VITALS (36 sets, daily range): BP systolic 102–160; BP diastolic 54–84; PULSE 41–62; TEMP 36.4; O2SAT 94–100; BMI 23.2
--- NOTE | 2024-04-12 09:04 | ECG_ITS ---
The [facility] Test Date: 2024-04-12 Pat Name: ANNELISE GARCIA Department: Room: - Gender: Male Inspector Missile: : 1935 Requested By: YARELIS LALA Order Number: [id number] Reading MD: YARELIS LALA Measurements Intervals [place] Rate: 57 P: 90 ND: 242 QRS: 96 QRSD: 138 T: 260 QT: 488 QTc: 483 Interpretive Statements 1100 Sinus rhythm 1108 Marked sinus arrhythmia 2231 First degree AV block 2450 Right bundle branch block [address] depression, consistent with subendocardial injury 9150 abnormal ECG Compared to ECG 07/10/2023 11:31:51 ST (T wave) deviation now present Electronically Signed On 04-12-2024 18:52:55 EST by YARELIS LALA
--- NOTE | 2024-04-12 09:04 | XR_ITS ---
The [address] [address] Patient Name: ANNELISE GARCIA MRN: [id number] date: 1935 Sex: M Assigned Patient Location: ER Current Patient Location: ER Accession/Order Number: [id number] Exam Date: 04/12/2024 09:30 Report Date: 04/12/2024 10:19 At the request of: KASH LOVE Procedure: XR chest 1V EXAMINATION: XR chest 1V REASON FOR EXAM: chest pain COMPARISON: None TECHNIQUE: Single projection. FINDINGS: Prior mediastinotomy. Heart size normal. There is no pneumothorax or edema and no infiltrate or effusion. No free air beneath the hemidiaphragms. Visualized bony thorax intact XR/XR chest 1V IMPRESSION: No acute or focal cardiopulmonary findings. Electronically authenticated by: JULIO ROWLAND Date: 04/12/2024 10:19
--- NOTE | 2024-04-12 09:08 | ED_ITS ---
HPI - Chest Pain General Chief Complaint: Chest Pain Stated Complaint: CHEST PAIN Time Seen by Provider: 04/12/24 09:00 Source: patient Mode of arrival: walk-in Limitations: no limitations History of Present Illness HPI narrative: 88-year-old male presents for chest pain. It started 30 minutes prior to arrival when he was not exerting. It has been continuous and he took 2 nitroglycerin which did not seem to help. He did not take aspirin yet today. 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 It appears he had a negative stress test in 2022. It feels like a pressure and it has been continuous and does not seem to radiate. He is not short of breath. Related Data Home Medications ?Medication ?Instructions ?Recorded ?Confirmed atorvastatin 40 mg tablet 40 mg PO Q24H 07/10/23 04/12/24 dapagliflozin propanediol 10 mg 10 mg PO Q24H 07/10/23 04/12/24 tablet (Farxiga) furosemide 40 mg tablet 40 mg PO Q24H 07/10/23 04/12/24 hyoscyamine sulfate 0.125 mg tablet 0.125 mg PO Q6H 07/10/23 07/10/23 lisinopril 10 mg tablet 10 mg PO Q24H 07/10/23 04/12/24 nitroglycerin 0.4 mg sublingual 0.4 mg sublingual Q5M 07/10/23 04/12/24 tablet omeprazole 40 mg capsule,delayed 40 mg PO Q24H 07/10/23 04/12/24 release metoprolol succinate 25 mg 12.5 mg PO DAILY 04/12/24 04/12/24 tablet,extended release 24 hr rivaroxaban 20 mg tablet (Xarelto) 20 mg PO Q24H 04/12/24 04/12/24 Allergies Allergy/AdvReac Type Severity Reaction Status Date / Time unknown Allergy Mild Uncoded 07/10/23 12:10 Review of Systems ROS Narrative A ten point review of systems is negative except as noted above. PFSH PFSH Social History Smoking status: Former smoker Little interest or pleasure in doing things: not at all Feeling down, depressed, or hopeless: not at all Exam Narrative Exam Narrative: Nurses note and vital signs reviewed and patient is not hypoxic. General: The patient appears in no apparent distress. Skin: Warm, dry, no pallor noted. There is no rash noted. Head: Normocephalic, atraumatic Eye: Normal conjunctiva, no drainage Ears, Nose, Mouth, and Throat: oral mucosa is moist. Nares patent. Cardiovascular: Regular Rate and Rhythm Respiratory: Patient is in no distress, no accessory muscle use, lungs are clear to auscultation, no wheezing, rales or rhonchi Back: non-tender GI: Soft and nontender Musculoskeletal: The patient has no evidence of calf tenderness, no pitting edema, symmetrical pulses noted bilaterally Neurological: A&O, normal speech Psychiatric: Cooperative Constitutional Vital Signs, click to edit/add: Last Vital Signs Temp 97.5 F L 04/12/24 09:02 Pulse 57 L 04/12/24 11:00 Resp 21 H 04/12/24 11:00 BP 117/61 04/12/24 11:00 Pulse Ox 97 04/12/24 11:00 O2 Del Method Room Air 04/12/24 09:02 Course Vital Signs Vital signs: Vital Signs Pulse Rate 62 04/12/24 08:58 Respiratory Rate 22 H 04/12/24 08:58 Pulse Oximetry 100 04/12/24 08:58 Temperature 97.5 F L 04/12/24 09:02 Pulse Rate 57 L 04/12/24 11:00 Respiratory Rate 21 H 04/12/24 11:00 Blood Pressure 117/61 04/12/24 11:00 Pulse Oximetry 97 04/12/24 11:00 Oxygen Delivery Method Room Air 04/12/24 09:02 MDM - Chest Pain MDM Narrative Medical decision making narrative: Initial EKG shows ST segment depression primarily laterally with a normal troponin. Repeat troponin was elevated at 150 and the repeat EKG with his pain greatly improved showed great improvement in the depression. He is hemodynamically stable and was given aspirin and nitroglycerin and morphine. He is on Xarelto so no heparin was administered. He is agreeable and stable for transfer. I have spoken to Dr. Fernandez, cardiology, who recommends transfer to [facility] and I have spoken to the hospitalist service there. He is excepted. Differential Diagnosis Differential diagnosis: Likely pneumothorax, stable angina, unstable angina pectoris, atypical chest pain, st elevation myocardial infarction, costochondritis and chest pain Lab Data Attestation: I reviewed the patient's lab results. Labs: Lab Results 04/12/24 04/12/24 Range/Units 09:15 10:31 WBC 5.5 (4.0-11.0) 10^3/uL RBC 4.65 L (4.70-6.10) 10^6/uL Hgb 16.4 (14.0-18.0) g/dL Hct 47.0 (42.0-54.0) % MCV 101.1 H (80.0-94.0) fL MCH 35.3 H (25.9-34.0) pg MCHC 34.9 (29.9-35.2) g/dL RDW 12.4 (11.0-15.0) % Plt Count 161 (150-450) 10^3/uL MPV 9.2 L (9.5-13.5) fL Neut % (Auto) 57.1 (43.0-75.0) % Lymph % (Auto) 25.0 (20.5-60.0) % [place] % (Auto) 13.2 H (1.7-12.0) % Eos % (Auto) 3.9 (0.9-7.0) % Baso % (Auto) 0.6 (0.2-2.0) % Neut # (Auto) 3.1 (1.4-6.5) 10^3/uL Lymph # (Auto) 1.4 (1.2-3.8) 10^3/uL [place] # (Auto) 0.7 (0.3-0.8) 10^3/uL Eos # (Auto) 0.2 (0.0-0.7) 10^3/uL Baso # (Auto) 0.0 (0.0-0.1) 10^3/uL Abs Immat Gran (auto) 0.01 (0.00-0.03) 10^3/uL Imm/Tot Granulo (auto) 0.2 (0.0-0.5) % Sodium 142 (136-145) mmol/L Potassium 4.4 (3.5-5.1) mmol/L Chloride 105 (98-107) mmol/L Carbon Dioxide 25.7 (21.0-32.0) mmol/L Anion Gap 15.7 BUN 20.0 H (7.0-18.0) mg/dL Creatinine 1.60 H (0.70-1.30) mg/dL Est GFR ( Amer) 50 L (>=60 mL/min/1.73m^2) Est GFR (Non-Af Amer) 41 L (>=60 mL/min/1.73m^2) BUN/Creatinine Ratio 12.5 Glucose 117 H (74-106) mg/dL Calcium 9.5 (8.5-10.1) mg/dL Troponin I High Sens 24.4 152.5 H* (4.0-76.1) pg/mL Imaging Data Chest x-ray: Radiologist's impression: ITS Impressions Chest X-Ray 04/12/24 09:04 IMPRESSION: No acute or focal cardiopulmonary findings. Electronically authenticated by: JULIO ROWLAND Date: 04/12/2024 10:19 ECG Data Attestation: I personally reviewed and interpreted this ECG as follows: (EKG on my interpretation shows significant ST depression in the leads V3 through V6. There is some ST depression as well in 2, 3, and aVF. This is all new compared to an EKG dated July 09 of this year. Second EKG shows improved ST segment depression.) Heart Score History: Highly Suspicious ECG: Sign. ST Depression Age: >65 years Risk Factors: >3 Risk Factors/ HX of CAD:2 Troponin: <3X Normal Limit Total Heart Score Recommendations & Risks:: 9 Critical Care Time Critical Care Time Critical Care Time: Yes Total Critical Care Time: 35 Attestation: Due to the high probability of sudden and clinically significant deterioration in the patient's condition he/she required the highest level of my preparedness to intervene urgently I provided critical care time including documentation time, medication orders and management, reevaluation, vital sign assessment, ordering and reviewing of lab tests, ordering and reviewing of x-ray studies, and admission orders. Aggregate critical care time is 35 minutes including only time during which I was engaged in work directly related to his/her care and did not include time spent treating other patients simultaneously. Discharge Plan Discharge Chief Complaint: Chest Pain Clinical Impression: Non-ST elevation NE (NSTEMI) Patient Disposition: [facility] Time of Disposition Decision: 12:38 Discharge Location: The [facility] Condition: Fair Mode of Transportation: EMS
[2024-04-12] MEDS: ASPIRIN 81 MG TAB.CHEW 324 MG PO (09:09)
[2024-04-12] MEDS: MORPHINE SULFATE 2 MG/ML SYRINGE IV (09:15)
[2024-04-12] MEDS: NITROGLYCERIN 0.4 MG BOTTLE SL (09:16)
[2024-04-12 09:25] LABS: Basophils Percent Auto 0.6 % (0.2-2.0); Eosinophils Absolute Auto 0.2 10^3/uL (0.0-0.7); Eosinophils Percent Auto 3.9 % (0.9-7.0); Hemoglobin 16.4 g/dL (14.0-18.0); Immature Granulocytes Abs Auto 0.01 10^3/uL (0.00-0.03); Immature Granulocytes Pct Auto 0.2 % (0.0-0.5); Lymphocytes Absolute Auto 1.4 10^3/uL (1.2-3.8); Mean Corpuscular HGB Conc 34.9 g/dL (29.9-35.2); Mean Corpuscular Hemoglobin 35.3 pg (25.9-34.0); Mean Corpuscular Volume 101.1 fL (80.0-94.0); Mean Platelet Volume 9.2 fL (9.5-13.5); Monocytes Absolute Auto 0.7 10^3/uL (0.3-0.8); Monocytes Percent Auto 13.2 % (1.7-12.0); Neutrophils Absolute Auto 3.1 10^3/uL (1.4-6.5); Neutrophils Percent Auto 57.1 % (43.0-75.0); Platelet Count 161 10^3/uL (150-450); Red Blood Count 4.65 10^6/uL (4.70-6.10); Red Cell Distribution Width 12.4 % (11.0-15.0); White Blood Count 5.5 10^3/uL (4.0-11.0)
[2024-04-12 09:45] LABS: Anion Gap 15.7; BUN Creatinine Ratio 12.5; Calcium 9.5 mg/dL (8.5-10.1); Carbon Dioxide 25.7 mmol/L (21.0-32.0); Chloride 105 mmol/L (98-107); Estimated GFR (African America 50 (>=60 mL/min/1.73m^2); Estimated GFR (Non-African Ame 41 (>=60 mL/min/1.73m^2); Glucose 117 mg/dL (74-106); Potassium 4.4 mmol/L (3.5-5.1); Sodium 142 mmol/L (136-145); Troponin I High Sensitivity 24.4 pg/mL (4.0-76.1)
--- NOTE | 2024-04-12 09:53 | ECG_ITS ---
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
[2024-04-12 11:00] LABS: Troponin I High Sensitivity 152.5 pg/mL (4.0-76.1)
== END 2024-04-12 14:38 | disposition short-term general hospital (02) ==
PROVIDERS: Emergency Provider Emergency Medicine; PCP Internal Medicine
DX: I21.4 Non-ST elevation (NSTEMI) myocardial infarction (principal); Z95.1 Presence of aortocoronary bypass graft; Z87.891 Personal history of nicotine dependence
CPT/HCPCS: 36415; 71045; 80048; 84484; 85025; 93005; 96374; 99285; J2270

== ENCOUNTER 2024-05-20 10:55 | Outpatient (OUT) | payer MEDICARE, SELFPAY ==
[2024-05-20 11:10] LABS: Basophils Percent Auto 0.5 % (0.2-2.0); Eosinophils Absolute Auto 0.1 10^3/uL (0.0-0.7); Eosinophils Percent Auto 2.2 % (0.9-7.0); Hematocrit 43.5 % (42.0-54.0); Hemoglobin 14.4 g/dL (14.0-18.0); Lymphocytes Absolute Auto 1.1 10^3/uL (1.2-3.8); Lymphocytes Percent Auto 17.6 % (20.5-60.0); Mean Corpuscular HGB Conc 33.1 g/dL (29.9-35.2); Mean Corpuscular Hemoglobin 34.5 pg (25.9-34.0); Mean Corpuscular Volume 104.3 fL (80.0-94.0); Mean Platelet Volume 8.9 fL (9.5-13.5); Monocytes Absolute Auto 0.7 10^3/uL (0.3-0.8); Monocytes Percent Auto 10.9 % (1.7-12.0); Neutrophils Absolute Auto 4.3 10^3/uL (1.4-6.5); Neutrophils Percent Auto 68.8 % (43.0-75.0); Platelet Count 165 10^3/uL (150-450); Red Blood Count 4.17 10^6/uL (4.70-6.10); Red Cell Distribution Width 12.5 % (11.0-15.0); White Blood Count 6.3 10^3/uL (4.0-11.0)
[2024-05-20 11:24] LABS: Creatinine Urine Random 72.04 mg/dL (20.00-300.00); Protein Creatinine Ratio Urine 0.27; Total Protein Urine Random 19.1 mg/dL (<=11.9)
[2024-05-20 11:44] LABS: Alanine Aminotransferase 25 U/L (16-63); Albumin Globulin Ratio 1.1; Albumin Level 3.6 g/dL (3.4-5.0); Alkaline Phosphatase 83 U/L (46-116); Anion Gap 8.5; Aspartate Amino Transferase 26 U/L (15-37); BUN Creatinine Ratio 12.4; Bilirubin Total 0.8 mg/dL (0.2-1.0); Calcium 9.2 mg/dL (8.5-10.1); Carbon Dioxide 31.9 mmol/L (21.0-32.0); Chloride 105 mmol/L (98-107); Estimated GFR (African America >60 (>=60 mL/min/1.73m^2); Estimated GFR (Non-African Ame 57 (>=60 mL/min/1.73m^2); Globulin 3.2 g/dL; Glucose 101 mg/dL (74-106); Potassium 4.4 mmol/L (3.5-5.1); Sodium 141 mmol/L (136-145); Thyroid Stimulating Hormone 3.199 uIU/mL (0.358-3.740); Total Protein 6.8 g/dL (6.4-8.2)
== END 2024-05-20 10:56 | disposition home or self-care (01) ==
LOC: LAB 10:55
PROVIDERS: PCP Internal Medicine; Visit Provider Internal Medicine
DX: E03.8 Other specified hypothyroidism (principal); N18.31 Chronic kidney disease, stage 3a; D64.9 Anemia, unspecified
CPT/HCPCS: 36415; 80053; 82570; 84156; 84443; 85025

== ENCOUNTER 2024-07-27 11:03 | Outpatient (OUT) | payer MEDICARE, SELFPAY ==
--- OUTSIDE RECORDS SUMMARY | 2024-07-27 11:17 | XMS_ITS | CCD ---
Author Organization [facility] Care Team Providers Care Adjunct Phlebotomy Instructor Name Role Phone MIGUEL LALA Primary Care Physician [phone] KAILASH BARNES Consulting Unavailable GEOVANY RHODES Admitting Unavailable GEOVANY RHODES Attending Unavailable DAI, DR RIVERA Primary Care Unavailable ARELI, EDUARDO Consulting Unavailable JENARO PAGE Consulting Unavailable DAI, DR RIVERA Attending Unavailable DAI, DR RIVERA Admitting Unavailable DAI, DR RIVERA Primary Care Unavailable DAI, DR RIVERA Consulting Unavailable DAI, DR RIVERA Consulting Unavailable DAI, DR RIVERA Attending Unavailable DAI, DR RIVERA Admitting Unavailable DAI, DR RIVERA Primary Care Unavailable DAI, DR RIVERA Primary Care Unavailable HAY ., DR ALVAREZ Admitting Unavailable HAY ., DR ALVAREZ Consulting Unavailable HAY ., DR ALVAREZ Attending Unavailable ALYCIA CALABRESE Consulting Unavailable Miguel Lala Unavailable HEATHER OQUENDO Attending Unavailable Miguel Lala MD Primary Care Provider Fatemeh Ramírez DO Unavailable [facility] Unavailable Miguel Lala DO Unavailable CAMACHO MOHAMUD Attending Unavailable CAMACHO MOHAMUD Admitting Unavailable CADECAMACHO Referring Unavailable KIZZY, SILVERIO Referring Unavailable CADECAMACHO Referring Unavailable CADECAMACHO Referring Unavailable AVIS GREY Attending Unavailable CAMACHO MOHAMUD Referring Unavailable KIZZY, SILVERIO Referring Unavailable CADECAMACHO Referring Unavailable CADECAMACHO Crystal Attending Unavailable MASON ALMEIDA Attending Unavailable KIZZY, SILVERIO Referring Unavailable CADECAMACHO Referring Unavailable KIZZY, SILVERIO Referring Unavailable CADE, CAMACHO Referring Unavailable KIZZY, SILVERIO Referring Unavailable KIZZY, SILVERIO Referring Unavailable KIZZY, SILVERIO Referring Unavailable KIZZY, SILVERIO Referring Unavailable CADECAMACHO Referring Unavailable CADE, CAMACHO Referring Unavailable MASON ALMEIDA Attending Unavailable KIZZY, SILVERIO Referring Unavailable MOUKARBELALEX Attending Unavailable MANUEL, JOSELUIS Referring Unavailable WAYNERIVKA Attending Unavailable CADE, CAMACHO Referring Unavailable CADE, CAMACHO Referring Unavailable CADE, CAMACHO Referring Unavailable KIZZY, SILVERIO Referring Unavailable KIZZY, SILVERIO Referring Unavailable KIZZY, SILVERIO Referring Unavailable KIZZY, SILVERIO Referring Unavailable KIZZY, SILVERIO Referring Unavailable KIZZY, SILVERIO Referring Unavailable KIZZY, SILVERIO Referring Unavailable KIZZY, SILVERIO Referring Unavailable MANUEL, JOSELUIS Referring Unavailable YULISSA, HANI Referring Unavailable PIRKL, MARY Referring Unavailable PIRKL, MARY Referring Unavailable PIRKL, MARY Referring Unavailable NGUYEN, CAROL Admitting Unavailable YULISSA, SAMANTHA Attending Unavailable SANDRO GAYTAN Referring Unavailable CADE, CAMACHO Attending Unavailable CADE, CAMACHO Admitting Unavailable BROWN, HAIR Naranjo Attending Unavailable BROWN, HAIR Naranjo Attending Unavailable BROWN, HAIR Naranjo Attending Unavailable BROWN, HAIR Naranjo Attending Unavailable JOY, SAVI A Attending Unavailable BALL, MIGUEL E Referring Unavailable DESIREE, FATEMEH Attending Unavailable BROWN, HAIR Naranjo Attending Unavailable BROWN, HAIR A Attending Unavailable BROWN, HAIR A Attending Unavailable BROWN, HAIR A Attending Unavailable BROWN, HAIR A Attending Unavailable BROWN, HAIR A Attending Unavailable HILL, HAWK Epstein Referring Unavailable HILL, HAWK Epstein Attending Unavailable DESIREE, FATEMEH Attending Unavailable BROWN, HAIR Naranjo Attending Unavailable BROWN, HAIR Naranjo Attending Unavailable DESIREE, FATEMEH Attending Unavailable SELF Referring Unavailable TISHAANYA Attending Unavailable VENNEPUREDDY, MIKE Attending Unavailable BALL, MIGUEL E Referring Unavailable Allergies Allergy Classification Reported Allergen(s) Allergy Type Date of Onset Reaction(s) Facility (20 sources) Naproxen; Translations: [naproxen] Drug Allergy 04-23-20 14 Unknown (qualifier value), Unknown [facility] (1 source) Naproxen Drug Allergy 03-06-20 17 [facility] (6 sources) patient allergy list reviewed by nurse or physicia Propensity to adverse reactions 11-04-19 19 Comment:Done bookjam Other (18 sources) Ciprofloxacin; Translations: [CIPROFLOXACIN] Drug Allergy 06-04-19 Unknown [facility] (17 sources) Fenoprofen; Translations: [FENOPROFEN] Drug Allergy 06-04-19 Unknown [facility] (17 sources) moxifloxacin; Translations: [MOXIFLOXACIN] Drug Allergy 06-04-19 Unknown [facility] (16 sources) Sulfonamides (Antibiotic) Propensity to adverse reactions 06-04-19 Unknown [facility] (18 sources) Iodinated Contrast Media; Translations: [IODINATED CONTRAST MEDIA] Propensity to adverse reactions 06-04-19 Unknown [facility] (2 sources) Sulfonamides (Antibiotic); Translations: [SULFA (SULFONAMIDE ANTIBIOTICS)] Propensity to adverse reactions to drug (disorder) 06-04-19 [facility] Repository Medications Current Medications Medication Drug Class(es) Dates Sig (Normalized) Sig (Original) apixaban 5 mg oral tablet (3 sources) Factor Xa Inhibitor Start: 05-12-2020 take 1 mg by mouth twice daily Eliquis 5 mg oral tablet mg tab(s), Oral, BID, Refills(s) 0 Start Date: 05/12/20 Status: Ordered Apoaequorin (PREVAGEN EXTRA STRENGTH PO) (11 sources) Apoaequorin (PREVAGEN EXTRA STRENGTH PO) Take by mouth Active aspirin 81 mg chewable tablet (20 sources) Platelet Aggregation Inhibitor, Nonsteroidal Anti-inflammatory Drug Start: 05-21-2024 take 1 tablet by mouth once daily Aspirin 81 mg tablet,chewable Active 1 TAB PO Daily May 21, 2024 12:00am Start: 06-17-2023 End: 04-22-2024 take 1 tablet by mouth once daily Aspirin 81 mg tablet,delayed release (DR/EC) Discontinued 81 MG PO Daily June 17, 2023 12:00am April 22, 2024 11:04am take 1 tablet by snow th once daily Aspirin 81 81 MG 1 tablet Orally Once a day Active atorvastatin 40 mg oral tablet (20 sources) HMG-CoA Reductase Inhibitor Start: 11-18-2023 take 1 tablet by mouth once daily in the evening Atorvastatin 40 mg tablet Active 0 .ROUTE .COMPLEX 90 November 18, 2023 12:28pm TAKE 1 TABLET BY MOUTH DAILY IN THE EVENING Start: 05-12-2020 End: 11-18-2023 take 1 tablet by mouth in the morning atorvastatin (Lipitor) 40 MG tablet Take 40 mg by mouth in the morning. 05/12/2023 Active cetirizine hydrochloride 10 mg oral capsule (20 sources) Histamine-1 Receptor Antagonist Start: 06-17-2023 take 1 capsule by mouth once daily Cetirizine (Zyrtec) 10 mg capsule Active 10 MG PO Daily June 17, 2023 12:00am Start: 05-13-2020 Zyrtec Daily, Refills(s) 0 Start Date: 05/13/20 Status: Ordered take 2 tablets by [facility] in the morning cetirizine (ZyrTEC) 5 MG tablet Take 10 mg by mouth in the morning. Active clopidogrel 75 mg oral tablet (6 sources) P2Y12 Platelet Inhibitor Start: 04-22-2024 take 1 tablet by mouth once daily Clopidogrel 75 mg tablet Active 75 MG PO Daily April 22, 2024 12:00am dapagliflozin 10 mg oral tablet (17 sources) Sodium-Glucose Cotransporter 2 Inhibitor Start: 05-14-2023 End: 04-24-2024 take 10 mg by mouth in the morning Farxiga 10 MG Take 10 mg by mouth in the morning. 05/14/2023 Active Docosahexaenoate (1 source) DOCOSAHEXAENOIC ACID ORAL Take 90 mg by mouth. Active furosemide 40 mg oral tablet (20 sources) Loop Diuretic Start: 05-12-2020 End: 05-20-2024 furosemide (LASIX) 40 mg tablet Take by mouth. 05/12/2020 Active Ginkgo Biloba (7 sources) Start: 04-22-2024 take 1 tablet by mouth once daily Ginkgo Biloba 40 mg tablet Active 40 MG PO Daily April 22, 2024 12:00am give with meal/snack Ginkgo Biloba 40 mg tab Take 1 tablet by mouth. Active Ginkgo Biloba (G inkoba) 40 MG tablet Take by mouth Active krill oil (4 sources) Start: 04-22-2024 Zdswo-Aq-8-Dha -Dzq-Vgwtrmm-Tcc (Krill Oil) 1,[id number] mg capsule Active 1 CAP PO Daily April 22, 2024 12:00am End: 05-20-2024 Krill Oil 1000 MG capsule Ta ke by mouth 05/20/2024 Discontinued lisinopril 10 mg oral tablet (20 sources) Angiotensin Converting Enzyme Inhibitor Start: 05-21-2024 Lisinopril 10 mg tablet Active 12.5 MG PO Daily May 21, 2024 10:46am Start: 02-28-2024 End: 05-21-2024 take 1 tablet by mouth once daily Lisinopril 10 mg tablet Discontinued 0 .ROUTE .COMPLEX 90 February 28, 2024 4:18pm May 21, 2024 10:47am TAKE 1 TABLET BY MOUTH ONCE DAILY Start: 06-09-2022 End: 05-20-2024 take 1 tablet by mouth once daily Lisinopril 10 mg tablet Discontinued 10 MG PO Daily June 17, 2023 12:00am February 28, 2024 4:18pm Start: 05-12-2020 take 1 mg by mouth once daily lisinopril 5 mg Tab mg tab(s), Oral, Daily, Refills(s) 0 Start Date: 05/12/20 Status: Ordered Ernie Red (3 sources) Start: 05-31-2020 Ernie Red Ernie Red, Oral, Daily Start Date: 05/31/20 Status: Ordered memantine hydrochloride 10 mg oral tablet (12 sources) O-axpmon-G-aspart ate Receptor Antagonist Start: 06-18-2024 take 5 mg by mouth twice daily in the morning Memantine 10 mg tablet Active 10 MG PO Twice daily June 18, 2024 10:44am 5mg in the AM; 10mg at night Start: 05-20-2024 End: 05-20-2025 take 1 tablet by mouth in the morning memantine (Namenda) 10 MG tablet Indications: Late onset Alzheimer dementia, unspecified dementia severity, unspecified whether behavioral, psychotic, or mood disturbance or anxiety (CMS/HCC) Take 1 tablet (10 mg) by mouth in the morning and 1 tablet (10 mg) before bedtime. 240 tablet 2 05/20/2024 05/20/2025 Active Start: 05-20-2024 take 1 tablet by snow th once at bedtime memantine (Namenda) 5 MG tablet Indications: Late onset Alzheimer dementia, unspecified dementia severity, unspecified whether behavioral, psychotic, or mood disturbance or anxiety (CMS/HCC) 1 po q hs x 1 week , then 1 po bid x 1 week then 1 po q am and 2 po q hs for 1 week then 10mg pill bid 42 tablet 05/20/2024 Active 24 hr metoprolol succinate 25 mg extended release oral tablet (11 sources) beta-Adrenergic Catracho Start: 04-21-2024 take 1 tablet by mouth once daily Metoprolol Succinate 25 mg tablet extended release 24 hr Active 25 MG PO Daily 90 April 21, 2024 12:00am Start: 12-10-2023 End: 02-17-2024 take 2 tablets by mouth once daily Metoprolol Succinate 25 mg tablet extended release 24 hr Discontinued 12.5 MG PO Daily December 09, 2023 11:00pm February 17, 2024 10:27am Start: 12-10-2023 End: 02-17-2024 take 12.5 mg by mouth once daily Metoprolol Succinate Discontinued 12.5 MG PO Daily December 10, 2023 12:00am February 17, 2024 11:27am take 1 tablet by snow th every twenty-four hours metoprolol succinate XL (Toprol-XL) 25 MG 24 hr tablet Take 12 mg by mouth Do not crush or chew. Active 24 hr mirabegron 25 mg extended release oral tablet (2 sources) beta3-Adrenergic Agonist Start: 08-17-2022 take 1 tablet by mouth once daily Myrbetriq 25 mg oral tablet, extended release 25 mg = 1 tab(s), Oral, Daily, # 30 tab(s), Refills(s) 11, [facility]: [id number], 170, cm, 08/17/22 8:49:00 EDT, Height/Length Dosing, 66, kg, 08/17/22 8:49:00 EDT, Weight Dosing Start Date: 08/17/22 Status: Ordered nitroglycerin 0.4 mg sublingual tablet (20 sources) Nitrate Vasodilator Start: 01-02-2023 End: 05-21-2024 nitroglycerin (Nitrostat) 0.[address] 0.4 mg under the tongue every 5 (five) minutes if needed 01/02/2023 Active Start: 01-02-2023 Nitrostat 0.4 MG as directed Sublingual PRN chest pain Dec, Active Start: 05-13-2020 nitroglycerin Refills(s) 0 Start Date: 05/13/20 Status: Ordered omeprazole 40 mg delayed release oral capsule (20 sources) Proton Pump Inhibitor Start: 05-12-2020 omeprazole (PriLOSEC) [address] capsule Take 40 mg by mouth 05/12/2023 Active omeprazole 40 mg Cap-DR (1 source) Start: 05-12-2020 take 1 mg by mouth once daily omeprazole 40 mg Cap-DR mg cap(s), Oral, Daily, Refills(s) 0 Start Date: 05/12/20 Status: Ordered Zicam Sinus Relief (3 sources) Start: 05-13-2020 Zicam Sinus Re lief BID, Refill(s) 0 Start Date: 05/13/20 Status: Ordered rivaroxaban 20 mg oral tablet (9 sources) Factor Xa Inhibitor Start: 05-21-2024 take 1 tablet by mouth once daily Rivaroxaban (Xarelto) 20 mg tablet Active 20 MG PO Daily May 21, 2024 12:00am Start: 04-15-2024 End: 05-21-2024 take 1 tablet by mouth once daily at dinner Rivaroxaban (Xarelto) 15 mg tablet Discontinued 15 MG PO Daily April 22, 2024 12:00am May 21, 2024 10:44am must administer with evening meal spironolactone 25 mg oral tablet (9 sources) Aldosterone Antagonist Start: 04-24-2024 spironolactone (ALDACTONE) 25 mg tablet Take by mouth. 05/04/2024 Active Start: 04-22-2024 End: 04-24-2024 Spironolactone 25 mg tablet Discontinued 12.5 MG PO Daily April 22, 2024 12:00am April 24, 2024 1:04pm traMADol hydrochloride 50 mg oral tablet (20 sources) Opioid Agonist Start: 03-15-2022 take 1 tablet by mouth every eight hours as needed for pain Tramadol 50 mg tablet Active MG PO June 17, 2023 12:00am FreeTextSi tablet Orally every 8 hours PRN severe pain; Note: Source Status: Continue; Provider: Dai Dixon Start: 05-12-2020 take 1 tablet by snow every four hours as needed for pain tramadol 50 mg oral tablet 50 mg = 1 tab(s), Oral, q4hr, PRN for pain, # 60 tab(s), Refills(s) 0 Start Date: 05/12/20 Status: Ordered take 1 tablet by [facility] every twenty-four hours traMADol HCl 50 MG 1 tablet as needed Orally Once a day Active Completed/Discontinued Medications Medication Drug Class(es) Dates Sig (Normalized) Sig (Original) finasteride 5 mg oral tablet (15 sources) 5-alpha Reductase Inhibitor Start: 02-17-2024 End: 05-20-2024 take 1 tablet by mouth once daily Finasteride 5 mg tablet Discontinued 5 MG PO Daily February 16, 2024 11:00pm April 22, 2024 11:05am 3 ml sodium hyaluronate 10 mg/ml prefilled syringe (4 sources) Start: 01-23-2024 End: 01-23-2024 cross-linked hyaluronate (Gel-One) injection 30 mg Start: 01-23-2024 End: 01-23-2024 30 mg, Intra-articular, Once PRN Procedure, Starting on Anju 01/23/24 at 1116, For 1 dose 24 hr isosorbide mononitrate 30 mg extended release oral tablet (3 sources) Nitrate Vasodilator Start: 02-17-2024 End: 04-24-2024 take 1 tablet by mouth once daily, then take 1 tablet by mouth every twenty-four hours Isosorbide Mononitrate 30 mg tablet extended release 24 hr Discontinued 30 MG PO Daily February 16, 2024 11:00pm April 24, 2024 1:04pm tamsulosin hydrochloride 0.4 mg oral capsule (20 sources) alpha-Adrenergic Catracho Start: 06-17-2023 End: 05-20-2024 tamsulosin (Flomax) 0.4 MG 24 hr capsule 1 capsule 06/17/2023 05/20/2024 Discontinued Start: 06-17-2023 End: 04-22-2024 take 1 capsule by mouth once daily Tamsulosin 0.4 mg capsule Discontinued 1 CAP PO Daily June 17, 2023 12:00am April 22, 2024 11:06am FreeTextSi capsule Orally Once a day; Note: Source Status: Taking; Provider: Dai Rivera ( ) take 1 capsule by [facility] every twenty-four hours Tamsulosin HCl 0.4 MG 1 capsule Orally Once a day Active Problems Active Problems Problem Classification Problem Date Documented Da te Episodic/Chronic Abdominal pain (3 sources) Lower abdominal pain, unspecified; Translations: [LOWER ABDOMINAL PAIN UNSPECIFIED] Onset: 3 Episodic Acute myocardial infarction (2 sources) Non-ST elevation (NSTEMI) myocardial infarction; Translations: [Non-ST elevation (NSTEMI) myocardial infarction] Onset: 4 Chronic Cardiac dysrhythmias (20 sources) Typical atrial flutter; Translations: [Typical atrial flutter] Onset: 2 05-12-2020 Chronic Chronic kidney disease (20 sources) Chronic kidney disease stage 3A ; Translations: [Stage 3a chronic kidney disease] 06-17-2023 Chronic Complication of device; implant or graft (2 sources) Atherosclerosis of coronary artery bypass graft(s), unspecified, with other forms of angina pectoris; Translations: [Atherosclerosis of coronary artery bypass graft(s), unspecified, with other forms of angina pectoris] Onset: 4 Chronic Congestive heart failure; nonhypertensive (19 sources) Heart failure, unspecified; Translations: [Chronic systolic heart failure] Onset: 3 Chronic Comment on above: Echo: LVEF 50-55%, R V dilated w/ reduced function - 12/2023 Coronary atherosclerosis and other heart disease (20 sources) Coronary arteriosclerosis; Translations: [Atherosclerotic heart disease of [place] coronary artery without angina pectoris] Onset: 2 05-12-2020 Chronic Comment on above: CABG - 2019,PCI/sten t LM - 04/2024 Delirium, dementia, and amnestic and other cognitive disorders (2 sources) Primary degenerative dementia of the Alzheimer type, senile onset; Translations: [Alzheimer's disease with late onset] 05-20-2024 Chronic Disorders of lipid metabolism (20 sources) [...] 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 Chronic Malaise and fatigue (14 sources) Other malaise and fatigue; Translations: [Malaise and fatigue] Onset: 4 Episodic Mycoses (3 sources) Pain in toe; Translations: [Tinea unguium] 02-20-2024 Episodic Neoplasms of unspecified nature or uncertain behavior (1 source) Neoplasm of uncertain behavior of skin; Translations: [Neoplasm of uncertain behavior of skin] 02-20-2024 Episodic Noninfectious gastroenteritis (1 source) Noninfective gastroenteritis and colitis, unspecified; Translations: [NONINFECTIVE GE AND COLITIS UNS] Onset: 3 Episodic Osteoarthritis (20 sources) Osteoarthritis of hip; Translations: [Osteoarthritis of knee] 05-12-2020 Chronic Other aftercare (20 sources) Long-term current use of anticoagulant; Translations: [roll tension tester (current) use of anticoagulants] 05-12-2020 Episodic Other aftercare (1 source) roll tension tester (current) use of aspirin; Translations: [ASSISTED CURRENT USE OF ASPIRIN] Onset: 3 Episodic Other aftercare (3 sources) Other group home (current) drug therapy; Translations: [OTH LPN PRIVATE DUTY CURRENT DRUG THERAPY] Onset: 3 Episodic Other aftercare (13 sources) H/O: high risk medication; Translations: [Other group home (current) drug therapy] Episodic Other aftercare (13 sources) High risk drug monitoring status; Translations: [intermediate (current) use of opiate analgesic] Episodic Other aftercare (2 sources) roll tension tester (current) use of opiate analgesic; Translations: [intermediate (current) use of opiate analgesic] Episodic Other aftercare (1 source) roll tension tester (current) use of anticoagulants; Translations: [roll tension tester (current) use of anticoagulants] Episodic Other aftercare (5 sources) Long-term current use of drug therapy; Translations: [Other group home (current) drug therapy] Episodic Other circulatory disease (2 sources) Presence of other cardiac implants and grafts; Translations: [Presence of other cardiac implants and grafts] Onset: 4 Chronic Other circulatory disease (19 sources) H/O: cardiovascular disease; Translations: [Personal history of other diseases of the circulatory system] Episodic Other circulatory disease (3 sources) Personal history of other diseases of the circulatory system; Translations: [H/O atrial flutter] Episodic Other circulatory disease (7 sources) History of atrial flutter; Translations: [Personal history of other diseases of the circulatory system] 06-17-2023 Episodic Comment on above: EPS/flutter 02/2024 Other connective tissue disease (18 sources) Enthesopathy [...] tissue disorders] Episodic Other connective tissue disease (3 sources) Pain in left foot; Translations: [Pain in left foot] 02-20-2024 Episodic Other diseases of bladder and urethra [...] Chronic Other ear and sense organ disorders (7 sources) Sensorineural hearing loss; Translations: [Unspecified sensorineural [...] and blood-forming organs] Chronic Other hematologic conditions (15 sources) Other specified diseases of blood and blood-forming organs; Translations: [Disease of blood AND/OR blood-forming organ] Onset: 9 Chronic Other hematologic conditions (3 sources) Macrocytosis; Translations: [Other specified diseases of blood and blood-forming organs] 05-19-2024 Chronic Other hereditary and degenerative nervous system conditions (13 sources) Impaired cognition; Translations: [Mild cognitive impairment, so stated] 06-17-2023 Chronic Other hereditary and degenerative nervous system conditions (12 sources) Mild cognitive impairment, so stated; Translations: [...] chronic pain] Chronic Other non-traumatic joint disorders (8 sources) Pain in right knee; Translations: [Right knee pain] Episodic Other upper respiratory disease (6 sources) Seasonal allergic rhinitis; Translations: [Other seasonal allergic rhinitis] Chronic Other upper respiratory infections (1 source) Acute sinusitis, unspecified; Translations: [Acute sinusitis, unspecified] 06-18-2024 Episodic Residual codes; unclassified (2 sources) Delirium; Translations: [Disorientation, unspecified] 04-15-2024 Episodic Screening and history of mental health and [...] PERIOCULAR INIT] Onset: 3 Episodic Thyroid disorders (8 sources) Subclinical hypothyroidism; Translations: [Other specified hypothyroidism] [...] other medications] Onset: 7 Unclassified (1 source) Other supraventricular tachycardia; Translations: [Other supraventricular tachycardia] Onset: 4 Viral infection (4 sources) Verruca plantaris; Translations: [Plantar wart] 02-20-2024 Episodic Past or Other Problems Problem Classification Problem Date Documented Da te Episodic/Chronic Cardiac dysrhythmias (2 sources) Palpitations; Translations: [Palpitations] Onset: 4 Episodic Chronic kidney disease (1 source) Chronic kidney disease Coronary atherosclerosis and other heart disease (2 sources) Presence of aortocoronary bypass graft; Translations: [Presence of aortocoronary bypass graft] Onset: 4 Episodic Esophageal disorders (15 sources) Esophageal disorders; Translations: [Gastroesophageal reflux disease with esophagitis without hemorrhage] Other gastrointestinal disorders (4 sources) Diarrhea, unspecified; Translations: [DIARRHEA UNSPECIFIED] Onset: 2 Episodic Unclassified (1 source) Other supraventricular tachycardia; Translations: [Other supraventricular tachycardia] Onset: 4 Results Test Name Value Interpretation Reference Range Facility 37on 06-26-2024 37 Stop aspirin now [facility] Office Visiton 06-26-2024 Follow-up visit [id number] Annelise Olson 1935 M Date Provider Department Center 06/26/2024 Alirio-MASON ALMEIDA [facility] CARD [facility] Family History Problem Relation Age of Onset Coronary artery disease Mother Coronary artery disease Father Family Status - Relation Status Age at Mother Father Level of Service:16004 FL OFFICE/OUTPATIENT ESTABLISHED MOD MDM 30 MIN Normal [facility] CNOVSPon 06-24-2024 CNOVSP Visit (SP) Office (H EMASA) ANNELISE OLSON ([id number]) 1935 M Date Time Provider Department 06/24/24 4:00 PM MIKE VEE During your visit today, we recorded the following information about you: Temperature Pulse Respiration Blood pressure 97 degrees 63/minute 18/minute 113/72 Weight 63.6 kg Mike Vee MD 06/25/2024 1:54 PM Signed PATIENT NAME: Annelise Olson CLINIC NO.: [id number] ATTENDING PHYSICIAN: Mike Vee MD DATE OF SERVICE: June 24, [address] Miguel Lala ([facility]) [address] [place] [address] thank you for referring Annelise Olson for an opinion regarding . CHIEF COMPLAINT: HPI: Annelise Olson is a 89 year old year old male with PMH of CAD s/p PCI, CHF, A flutter s/p ablation, HTN, CKD, dementia referred to us for macrocytosis. Doing well. No major complaints. No smoking No alcohol. Chronically elevated MCV. No current outpatient medications on file. No current facility-administered medications for this visit. ALLERGIES Not on File No past medical history on file. No past surgical history on file. No family history on file. REVIEW OF SYSTEMS GENERAL: No weight loss, malaise or fevers. No night sweats. HEENT: Negative for headaches, No changes in hearing or vision, no nose bleeds or other nasal problems. RESPIRATORY: Negative for cough, wheezing and shortness of breath CARDIOVASCULAR: Negative for chest pain, leg swelling and palpitations GI: Negative for abdominal discomfort, blood in stools or black stools and change in bowel habits : Negative for dysuria, frequency and incontinence MUSCULOSKELETAL: Negative for joint pain or swelling, back pain, and muscle pain. SKIN: Negative for lesions, rash, and itching. HEMATOLOGY/LYMPHOLOGY Negative for prolonged bleeding, bruising easily, and swollen nodes. NEURO: Negative for numbness or tingling of hands/feet. No weakness. PHYSICAL EXAMINATION: There were no vitals taken for this visit. There were no vitals taken for this visit. No data found for this vital: Wt General appearance:ECOG PERFORMANCE STATUS: 1- Restricted in physically strenuous activity. Carries out light duty. Patient in NAD. Skin: Skin color, texture, turgor normal. No rashes or lesions. Eyes: Anicteric sclera. Pupils are equally round and reactive to light. Extraocular movements are intact. Breast: No palpable breast masses. No nipple change or discharge. Lymph Nodes: No cervical, supraclavicular, axillary or inguinal adenopathy. Oropharynx: Lips, mucosa, and tongue normal. Back: No pain to percussion. Negative SLR test Lungs clear to auscultation, No wheezing or rhonchi Heart: RRR without murmur, gallop, or rubs. Abdomen soft, non-tender. No masses, organomegaly Extremities: No deformities. No edema Neuro: Gait and speech normal. Reflexes normal and symmetric. Muscular strength intact. Sensation grossly intact. Rectal: Deferred : Deferred LABS: No results found for: GLUC , K , NA , CHLOR , CO2 , CREAT , BUN , ANION , CA , TPROT , ALB , TBILI , ALKPHOS , AST , ALT No results found for: WBC , RBC , HB , HCT , MCV , MCH , MCHC , RDWCV , PLT , MPV , NEUT , ABSNEUT , LYMPHP , ABSLYMPH , MONOP , ABSMONO , EOSINP , ABSEOSIN , BASOP , ABSBASO PATH: IMAGING: ASSESSMENT AND PLAN: Annelise Olson is a 89 year old year old male referred to us for macrocytosis without anemia. 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 - Advised him to take MVT and B12 supplements - Check CBC CMP B12 folate SPEP K/L ratio - Given the normal blood counts, we will just monitor for now. - F/u with PCP and other consultants. - All his questions answered in detail. - F/u in [address] Miguel Lala ([facility]) [address] [place] [id number] thank you for allowing me to participate in [facility], if there are any questions or concerns please do not hesitate to contact me at the number below. I spent a total of 45 minutes on the date of the service which included preparing to see the patient, [id number] patient care, completing clinical documentation, obtaining and/or reviewing separately obtained history, performing a medically appropriate examination, counseling and educating the patient/family/caregiver, ordering medications, tests, or procedures, communicating with other HCPs (not separately reported), independently interpreting results (not separately reported), communicating results to the patient/family/caregiver, and care coordination (not separately reported). Mike Vee MD. Hematology/Medical Oncology [facility] [phone] CC: Mike Vee MD 06/24/2024 4:22 PM Signed Labs today F/u in 6 months Refer (more content not included)... Normal [facility] Basophils Auto (Bld) [#/Vol] on 05-20-2024 Basophils (Bld) [#/Vol] Automated basophil count 0.0-0.1 [facility] Basophils/100 WBC Auto (Bld) on 05-20-2024 Basophils/100 WBC (Bld) Automated basophil % 0.2-2.0 [facility] Eosinophils/100 WBC Auto (Bl d)on 05-20-2024 Eosinophils/100 WBC (Bld) Automated eosinophil % 0.9-7.0 [facility] Erythrocyte distribution wid th Auto (RBC) [Ratio]on 05-20-2024 Erythrocyte distribution width (RBC) [Ratio] Erythrocyte distribution width [Ratio] by Automated count 11.0-15.0 [facility] Estimated glomerular filtrat ion rate (GFR) non- Americanon 05-20-2024 GFR/1.73 sq M.predicted among non-blacks MDRD (S/P/Bld) [Vol rate/Area] Estimated glomerular filtration rate (GFR) non- Low >=60 mL/min/1.73 m 2 [facility] Globulin Calc (S) [Mass/Vol] on 05-20-2024 Globulin (S) [Mass/Vol] Serum globulin measurement by calculation (mass/volume) [facility] Hematocrit Auto (Bld) [Volum e fraction]on 05-20-2024 Hematocrit (Bld) [Volume fraction] Hematocrit [Volume Fraction] of Blood by Automated count 42.0-54.0 [facility] Hemoglobin [Mass/volume] in Bloodon 05-20-2024 Hemoglobin (Bld) [Mass/Vol] Hemoglobin [Mass/volume] in Blood 14.0-18.0 [facility] Laboratory - Chemistry and C hemistry - challengeon 05-20-2024 Albumin [Mass/Vol] 3.6 g/dL 3.4-5.0 [facility] ALP [Catalytic activity/Vol] 83 U/L 46-116 [facility] ALT [Catalytic activity/Vol] 25 U/L 16-63 [facility] AST [Catalytic activity/Vol] 26 U/L 15-37 [facility] Bilirubin [Mass/Vol] 0.8 mg/dL 0.2-1.0 [facility] Calcium [Mass/Vol] 9.2 mg/dL 8.5-10.1 [facility] Chloride [Moles/Vol] 105 mmol/L 98-107 [facility] CO2 [Moles/Vol] 31.9 mmol/L 21.0-32.0 [facility] Creatinine [Mass/Vol] 1.21 mg/dL 0.70-1.30 [facility] GFR/1.73 sq M.predicted MDRD (S/P/Bld) [Vol rate/Area] mL/min/{1.73_m2} >=60 mL/min/1.73 m 2 [facility] Glucose [Mass/Vol] 101 mg/dL 74-106 [facility] Potassium [Moles/Vol] 4.4 mmol/L 3.5-5.1 [facility] Protein [Mass/Vol] 6.8 g/dL 6.4-8.2 [facility] Sodium [Moles/Vol] 141 mmol/L 136-145 [facility] TSH Qn 3.199 m[IU]/L 0.358-3.740 [facility] Urea nitrogen [Mass/Vol] 15.0 mg/dL 7.0-18.0 [facility] Urea nitrogen/Creatinin e [Mass ratio] 12.4 mg/mg [facility] Laboratory - Hematology and Cell countson 05-20-2024 Immature granulocytes/100 WBC (Bld) 0.0 % 0.0-0.5 [facility] Laboratory - Urinalysison Protein (U) [Mass/Vol] 19.1 mg/dL High <=11.9 [facility] Leukocytes [#/volume] correc analia for nucleated erythrocytes in Blood by Automated counon 05-20-2024 WBC corrected for nucl RBC Auto (Bld) [#/Vol] Leukocytes [#/volume] corrected for nucleated erythrocytes in Blood by Automated coun 4.0-11.0 [facility] Lymphocytes Auto (Bld) [#/Vo l]on 05-20-2024 Lymphocytes (Bld) [#/Vol] Lymphocytes [#/volume] in Blood by Automated count Low 1.2-3.8 [facility] Lymphocytes/100 WBC Auto (Bl d)on 05-20-2024 Lymphocytes/100 WBC (Bld) Lymphocytes/100 leukocytes in Blood by Automated count Low 20.5-60.0 [facility] MCH Auto (RBC) [Entitic mass ]on 05-20-2024 MCH (RBC) [Entitic mass] MCH [Entitic mass] by Automated count High 25.9-34.0 [facility] MCHC Auto (RBC) [Mass/Vol]on 05-20-2024 MCHC (RBC) [Mass/Vol] MCHC [Mass/volume] by Automated count 29.9-35.2 [facility] MCV Auto (RBC) [Entitic vol] on 05-20-2024 MCV (RBC) [Entitic vol] MCV [Entitic volume] by Automated count High 80.0-94.0 [facility] Monocytes Auto (Bld) [#/Vol] on 05-20-2024 Monocytes (Bld) [#/Vol] Automated blood monocyte count 0.3-0.8 [facility] Monocytes/100 WBC Auto (Bld) on 05-20-2024 Monocytes/100 WBC (Bld) Automated monocyte % 1.7-12.0 [facility] Neutrophils Auto (Bld) [#/Vo l]on 05-20-2024 Neutrophils (Bld) [#/Vol] Neutrophils [#/volume] in Blood by Automated count 1.4-6.5 [facility] Neutrophils/100 WBC Auto (Bl d)on 05-20-2024 Neutrophils/100 WBC (Bld) Automated neutrophil % 43.0-75.0 [facility] No Panel Informationon 05-20 Eosinophils # (Auto) 0.1 10 3/uL 0.0-0.7 [facility] Immature Granulocyte # (Auto) 0.00 10 3/uL 0.00-0.03 [facility] Urine Random Creatinine 72.04 mg/dL 20.00-300.0 0 [facility] Platelet mean volume Auto (B ld) [Entitic vol]on 05-20-2024 Platelet mean volume (Bld) [Entitic vol] Platelet mean volume [Entitic volume] in Blood by Automated count Low 9.5-13.5 [facility] Platelets Auto (Bld) [#/Vol] on 05-20-2024 Platelets (Bld) [#/Vol] Platelets [#/volume] in Blood by Automated count 150-450 [facility] RBC Auto (Bld) [#/Vol]on RBC (Bld) [#/Vol] Erythrocytes [#/volu me] in Blood by Automated count Low 4.70-6.10 [facility] Serum or plasma albumin/glob ulin mass ratioon 05-20-2024 Albumin/Globulin [Mass ratio] Serum or plasma albumin/globulin mass ratio [facility] Serum or plasma anion gap de terminationon 05-20-2024 Anion gap [Moles/Vol] Serum or plasma anion gap determination [facility] Urine protein/creatinine rat ioon 05-20-2024 Protein/Creatinine (U) [Ratio] Urine protein/creatinine ratio [facility] 36on 05-05-2024 36 Calling to have orde r for cardiac rehab faxed to them. Faxed [phone] [facility] 37on 04-24-2024 37 Cardiac rehab at [facility] Follow-Upon 04-24-2024 Follow-Up [id number] Annelise Olson 1935 M Date Provider Department Center 04/24/2024 [facility] Family History Problem Relation Age of Onset Coronary artery disease Mother Coronary artery disease Father Family Status - Relation Status Age at Mother Father Level of Service:[address] [place] OFFICE/OUTPATIENT ESTABLISHED MOD MDM 30 MIN Reason for Visit and Comments: Hospital Follow-up [832] myocardial infarction [Other] Normal [facility] 30on 04-15-2024 30 The patient is Moder ately Stable - Low risk of patient condition declining or worsening The patient's goals for the shift include comfort The clinical goals for the shift include safety [facility] BASIC METABOLIC PANELon 04-05 Anion gap [Moles/Vol] 10 mmol/L Normal 7-20 [facility] Comment on above: Performed By: #### L [id number] ####[facility] (CallmyName)[address] [place] [address] Calcium [Mass/Vol] 8.7 mg/dL Normal 8.6-10.3 [facility] Comment on above: Performed By: #### L [id number] ####[facility] (CallmyName)[address] [place] [address] Chloride [Moles/Vol] 107 mmol/L Normal 98-107 [facility] Comment on above: Performed By: #### L [id number] ####[facility] (CallmyName)[address] [place] [address] CO2 [Moles/Vol] 23 mmol/L Normal 21-31 [facility] Comment on above: Performed By: #### L [id number] ####[facility] ([facility])[address] [place] [address] Creatinine [Mass/Vol] 1.17 mg/dL Normal 0.70-1.30 [facility] Comment on above: Performed By: #### L [id number] ####[facility] ([facility])[address] [place] [address] GLOMERULAR FILTRATION RATE ML/MIN/1.73 SQ M.PREDICTED 60.3 mL/min/1.73m*2 Normal >60.0 [facility] Comment on above: Result Comment: The [facility]???s estimated glomerular filtration rate (eGFR) will no longer include consideration of race in its calculation. The National Kidney Foundation???s eGFR Task Force developed new recommendations for the estimation of the glomerular filtration rate in the [place] They recommend immediate implementation of the new equation refit without the race variable in all laboratories because the calculation does not include race. In addition to not including race in the calculation and reporting, it included diversity in its development, and has acceptable performance characteristics and potential consequences that do not disproportionately affect any one group of individuals. Performed By: #### L [id number] ####[facility] ([facility])[address] [place] [address] Glucose [Mass/Vol] 99 mg/dL Normal 70-100 [facility] Comment on above: Performed By: #### L [id number] ####[facility] ([facility])[address] [place] [address] Potassium [Moles/Vol] 3.9 mmol/L Normal 3.5-5.1 [facility] Comment on above: Performed By: #### L [id number] ####[facility] ([facility])[address] [place] [address] Sodium [Moles/Vol] 136 mmol/L Normal 136-145 [facility] Comment on above: Performed By: #### L [id number] ####[facility] ([facility])[address] [place] [address] Urea nitrogen [Mass/Vol] 20 mg/dL Normal 7-25 [facility] Comment on above: Performed By: #### L [id number] ####[facility] ([facility])[address] [place] [address] UREA NITROGEN/CREATININ E (MASS RATIO) IN SER/PLAS 17.1 Normal [facility] Comment on above: Performed By: #### L [id number] ####[facility] ([facility])[address] [place] [address] CBCon 04-15-2024 Erythrocyte distribution width (RBC) [Ratio] 12.4 % Normal 11.5-15.0 [facility] Comment on above: Performed By: #### L [id number] ####[facility] ([facility])[address] [place] [address] ERYTHROCYTE MEAN CORPUSCULAR HEMOGLOBIN CONCENTRATION (G/DL) BY AUTOMATED 34.2 g/dL Normal 32.0-35.0 [facility] Comment on above: Performed By: #### L [id number] ####[facility] ([facility])[address] [place] [address] Hematocrit (Bld) [Volume fraction] 39.5 % Normal 39.0-55.0 [facility] Comment on above: Performed By: #### L [id number] ####[facility] ([facility])[address] [place] [address] Hemoglobin (Bld) [Mass/Vol] 13.5 g/dL Normal 13.0-17.0 [facility] Comment on above: Performed By: #### L [id number] ####[facility] ([facility])[address] [place] [address] IMMATURE PLATELET FRACTION % 1.6 % Normal 0.8-6.3 [facility] Comment on above: Performed By: #### L [id number] ####[facility] ([facility])[address] [place] [address] MCH (RBC) [Entitic mass] 34.9 pg High 27.0-33.0 [facility] Comment on above: Performed By: #### L [id number] ####[facility] ([facility])[address] [place] [address] MCV (RBC) [Entitic vol] 102.1 fL High 82.0-98.0 [facility] Comment on above: Performed By: #### L [id number] ####[facility] ([facility])[address] [place] [address] PLATELETS (10*3/UL) IN BLOOD AUTOMATED COUNT 140 10*3/uL Low 150-400 [facility] Comment on above: Performed By: #### L [id number] ####[facility] ([facility])[address] [place] [address] RBC (Bld) [#/Vol] 3.87 10*6/uL Low 4.20-5.70 [facility] Comment on above: Performed By: #### L [id number] ####[facility] ([facility])[address] [place] [address] WBC (Bld) [#/Vol] 5.98 10*3/uL Normal 4.00-10.60 [facility] Comment on above: Performed By: #### L [id number] ####[facility] ([facility])[address] [place] [address] CBC WITH AUTO DIFFERENTIALon 04-15-2024 Basophils (Bld) [#/Vol] 0.03 10*3/uL Normal 0.00-0.20 [facility] Comment on above: Performed By: #### L [id number] ####[facility] ([facility])[address] [place] [address] Basophils/100 WBC (Bld) 0.5 % Normal 0.0-1.0 [facility] Comment on above: Performed By: #### L [id number] ####[facility] ([facility])[address] [place] [address] Eosinophils (Bld) [#/Vol] 0.20 10*3/uL Normal 0.00-0.50 [facility] Comment on above: Performed By: #### L [id number] ####[facility] (BEAKER)[address] [place] [address] Eosinophils/100 WBC (Bld) 3.4 % Normal 0.0-6.0 [facility] Comment on above: Performed By: #### L [id number] ####[facility] ([facility])[address] [place] [address] Erythrocyte distribution width (RBC) [Ratio] 12.3 % Normal 11.5-15.0 [facility] Comment on above: Performed By: #### L [id number] ####[facility] ([facility])[address] [place] [address] ERYTHROCYTE MEAN CORPUSCULAR HEMOGLOBIN CONCENTRATION (G/DL) BY AUTOMATED 33.8 g/dL Normal 32.0-35.0 [facility] Comment on above: Performed By: #### L [id number] ####[facility] ([facility])[address] [place] [address] Hematocrit (Bld) [Volume fraction] 40.8 % Normal 39.0-55.0 [facility] Comment on above: Performed By: #### L [id number] ####[facility] (BE[facility]ER)[address] [place] [address] Hemoglobin (Bld) [Mass/Vol] 13.8 g/dL Normal 13.0-17.0 [facility] Comment on above: Performed By: #### L [id number] ####[facility] (BEAKER)[address] [place] [address] Immature granulocytes (Bld) [#/Vol] 0.01 10*3/uL Normal 0.00-0.20 [facility] Comment on above: Performed By: #### L [id number] ####[facility] (BEAKER)[address] [place] [address] Immature granulocytes/100 WBC (Bld) 0.2 % Normal 0.0-1.0 [facility] Comment on above: Performed By: #### L [id number] ####[facility] ([facility])[address] [place] [address] Lymphocytes (Bld) [#/Vol] 1.28 10*3/uL Normal 1.20-4.00 [facility] Comment on above: Performed By: #### L [id number] ####[facility] ([facility])[address] [place] [address] Lymphocytes/100 WBC (Bld) 21.5 % Normal 20.0-45.0 [facility] Comment on above: Performed By: #### L [id number] ####[facility] ([facility])[address] [place] [address] MCH (RBC) [Entitic mass] 34.5 pg High 27.0-33.0 [facility] Comment on above: Performed By: #### L [id number] ####[facility] ([facility])[address] [place] [address] MCV (RBC) [Entitic vol] 102.0 fL High 82.0-98.0 [facility] Comment on above: Performed By: #### L [id number] ####[facility] ([facility])[address] [place] [address] Monocytes (Bld) [#/Vol] 0.83 10*3/uL Normal 0.10-1.00 [facility] Comment on above: Performed By: #### L [id number] ####[facility] ([facility])[address] [place] [address] Monocytes/100 WBC (Bld) 14.0 % High 5.0-12.0 [facility] Comment on above: Performed By: #### L [id number] ####[facility] ([facility])[address] [place] [address] Neutrophils (Bld) [#/Vol] 3.59 10*3/uL Normal 1.60-7.60 [facility] Comment on above: Performed By: #### L [id number] ####[facility] ([facility])[address] [place] [address] Neutrophils/100 WBC (Bld) 60.4 % Normal 40.0-72.0 [facility] Comment on above: Performed By: #### L [id number] ####[facility] ([facility])[address] [place] [address] NRBC (PER 100 WBCS) BY AUTOMATED COUNT 0.0 % Normal 0 [facility] Comment on above: Performed By: #### L [id number] ####[facility] ([facility])[address] [place] [address] PLATELETS (10*3/UL) IN BLOOD AUTOMATED COUNT 146 10*3/uL Low 150-400 [facility] Comment on above: Performed By: #### L [id number] ####[facility] ([facility])[address] [place] [address] RBC (Bld) [#/Vol] 4.00 10*6/uL Low 4.20-5.70 [facility] Comment on above: Performed By: #### L [id number] ####[facility] ([facility])[address] [place] [address] WBC (Bld) [#/Vol] 5.94 10*3/uL Normal 4.00-10.60 [facility] Comment on above: Performed By: #### L [id number] ####[facility] ([facility])[address] [place] [address] MAGNESIUMon 04-15-2024 Magnesium [Mass/Vol] 1.9 mg/dL Normal 1.9-2.7 [facility] Comment on above: Performed By: #### L [id number] ####[facility] ([facility])[address] [place] [address] 30on 04-14-2024 30 The patient is Moder ately Stable - Low risk of patient condition declining or worsening The patient's goals for the shift include comfort The clinical goals for the shift include safety Over the shift, the patient did not make progress toward the following goals. Barriers to progression include confusion and bleeding at cath site. Recommendations to address these barriers include making changes to the current treatment plan as needed. Problem: Neurosensory - Adult Goal: Achieves stable or improved neurological status Outcome: Not Progressing Flowsheets (Taken 04/14/20242024) Achieves stable or improved neurological status: Assess for and report changes in neurological status Initiate measures to prevent increased intracranial pressure Maintain blood pressure and fluid volume within ordered parameters to optimize cerebral perfusion and minimize risk of hemorrhage Monitor temperature, glucose, and sodium. Initiate appropriate interventions as ordered Problem: Skin/Tissue Integrity - Adult Goal: Incisions, wounds, or drain sites healing without S/S of infection Outcome: Not Progressing Flowsheets (Taken 04/14/20242024) Incisions, wounds, or drain sites healing without sign and symptoms of infection: ADMISSION and DAILY: Assess and document risk factors for pressure ulcer development TWICE DAILY: Assess and document skin integrity TWICE DAILY: Assess and document dressing/incision, wound bed, drain sites and surrounding tissue Implement wound care per orders Initiate pressure ulcer prevention bundle as indicated Normal [facility] 30 The patient is Moder ately Stable - Low risk of patient condition declining or worsening The patient's goals for the shift include rest, comfort The clinical goals for the shift include VSS Problem: Pain - Adult Goal: Verbalizes/displays adequate comfort level or baseline comfort level Outcome: Progressing Problem: Safety - Adult Goal: Free from fall injury Outcome: Progressing Problem: Discharge Planning Goal: Discharge to home or other facility with appropriate resources Outcome: Progressing Problem: Chronic Conditions and Co-morbidities Goal: Patient's chronic conditions and co-morbidity symptoms are monitored and maintained or improved Outcome: Progressing Normal [facility] 30 Daily Case Managemen t Update Multidisciplinary rounds have been completed. Barriers to Discharge: S/P cath yesterday. Overnight had issues with bleeding at cath site. Discharge dispo: PT/OT rec home, plan is for patient to discharge home when medically ready. Diet: Dietary Orders (From admission, onward) Start Ordered 04/14/24 0911 Regular Diet Heart Healthy/HTN, CABG,Stroke, (2gNA, low fat, low cholesterol) Diet effective now Question Answer Comment Room Service? Yes Fat restriction: Heart Healthy/HTN, CABG,Stroke, (2gNA, low fat, low cholesterol) 04/14/24 0910 Physician Expected Discharge Date: 04/15/2024 Discharge Delays: PT Six Click Score: 23 OT Six Click Score: 21 PT Recommendations: Home OT Recommendations: Home New Consults: Therapy Orders (From admission, onward) Start Ordered 04/12/24 1622 OT eval and treat Until therapy completed Question: Reason for OT? Answer: D/C recs 04/12/24 1626 Normal [facility] 30 The patient is Moder ately Stable - Low risk of patient condition declining or worsening The patient's goals for the shift include rest; comfort The clinical goals for the shift include VSS, no chest pain Normal [facility] BASIC METABOLIC PANELon 04-05 Anion gap [Moles/Vol] 12 mmol/L Normal 7-20 [facility] Comment on above: Performed By: #### L [id number] #### [facility] ([facility]) [address] [place] [address] Calcium [Mass/Vol] 8.6 mg/dL Normal 8.6-10.3 [facility] Comment on above: Performed By: #### L [id number] #### [facility] ([facility]) [address] [place] [address] Chloride [Moles/Vol] 104 mmol/L Normal 98-107 [facility] Comment on above: Performed By: #### L [id number] #### [facility] ([facility]) [address] [place] [address] CO2 [Moles/Vol] 21 mmol/L Normal 21-31 [facility] Comment on above: Performed By: #### L [id number] #### [facility] ([facility]) [address] [place] [address] Creatinine [Mass/Vol] 1.12 mg/dL Normal 0.70-1.30 [facility] Comment on above: Performed By: #### L [id number] #### [facility] ([facility]) [address] [place] [address] GLOMERULAR FILTRATION RATE ML/MIN/1.73 SQ M.PREDICTED 63.6 mL/min/1.73m*2 Normal >60.0 [facility] Comment on above: Result Comment: The [facility]???s estimated glomerular filtration rate (eGFR) will no longer include consideration of race in its calculation. The National Kidney Foundation???s eGFR Task Force developed new recommendations for the estimation of the glomerular filtration rate in the [place] They recommend immediate implementation of the new equation refit without the race variable in all laboratories because the calculation does not include race. In addition to not including race in the calculation and reporting, it included diversity in its development, and has acceptable performance characteristics and potential consequences that do not disproportionately affect any one group of individuals. Performed By: #### L [id number] #### [facility] ([facility]) [address] [place] [address] Glucose [Mass/Vol] 94 mg/dL Normal 70-100 [facility] Comment on above: Performed By: #### L [id number] #### [facility] ([facility]) [address] [place] [address] Potassium [Moles/Vol] 3.8 mmol/L Normal 3.5-5.1 [facility] Comment on above: Performed By: #### L [id number] #### [facility] ([facility]) [address] [place] [address] Sodium [Moles/Vol] 133 mmol/L Low 136-145 [facility] Comment on above: Performed By: #### L [id number] #### [facility] ([facility]) [address] [place] [address] Urea nitrogen [Mass/Vol] 25 mg/dL Normal 7-25 [facility] Comment on above: Performed By: #### L [id number] #### [facility] ([facility]) [address] [place] [address] UREA NITROGEN/CREATININ E (MASS RATIO) IN SER/PLAS 22.3 Normal [facility] Comment on above: Performed By: #### L [id number] #### [facility] ([facility]) [address] [place] [address] CBC WITH AUTO DIFFERENTIALon 04-14-2024 Basophils (Bld) [#/Vol] 0.03 10*3/uL Normal 0.00-0.20 [facility] Comment on above: Performed By: #### L [id number] #### [facility] ([facility]) [address] [place] [address] Basophils/100 WBC (Bld) 0.5 % Normal 0.0-1.0 [facility] Comment on above: Performed By: #### L [id number] #### [facility] ([facility]) [address] [place] [address] Eosinophils (Bld) [#/Vol] 0.17 10*3/uL Normal 0.00-0.50 [facility] Comment on above: Performed By: #### L [id number] #### [facility] ([facility]) [address] [place] [address] Eosinophils/100 WBC (Bld) 2.8 % Normal 0.0-6.0 [facility] Comment on above: Performed By: #### L [id number] #### [facility] ([facility]) [address] [place] [address] Erythrocyte distribution width (RBC) [Ratio] 12.4 % Normal 11.5-15.0 [facility] Comment on above: Performed By: #### L [id number] #### [facility] ([facility]) [address] [place] [address] ERYTHROCYTE MEAN CORPUSCULAR HEMOGLOBIN CONCENTRATION (G/DL) BY AUTOMATED 34.9 g/dL Normal 32.0-35.0 [facility] Comment on above: Performed By: #### L [id number] #### [facility] ([facility]) [address] [place] [address] Hematocrit (Bld) [Volume fraction] 40.7 % Normal 39.0-55.0 [facility] Comment on above: Performed By: #### L [id number] #### [facility] (BEAKER) [address] [place] [address] Hemoglobin (Bld) [Mass/Vol] 14.2 g/dL Normal 13.0-17.0 [facility] Comment on above: Performed By: #### L [id number] #### [facility] (BEAKER) [address] [place] [address] Immature granulocytes (Bld) [#/Vol] 0.02 10*3/uL Normal 0.00-0.20 [facility] Comment on above: Performed By: #### L [id number] #### [facility] (BEAKER) [address] [place] [address] Immature granulocytes/100 WBC (Bld) 0.3 % Normal 0.0-1.0 [facility] Comment on above: Performed By: #### L [id number] #### [facility] ([facility]) [address] [place] [address] Lymphocytes (Bld) [#/Vol] 1.29 10*3/uL Normal 1.20-4.00 [facility] Comment on above: Performed By: #### L [id number] #### [facility] (BEAKER) [address] [place] [address] Lymphocytes/100 WBC (Bld) 21.6 % Normal 20.0-45.0 [facility] Comment on above: Performed By: #### L [id number] #### [facility] (BEAKER) [address] [place] [address] MCH (RBC) [Entitic mass] 34.7 pg High 27.0-33.0 [facility] Comment on above: Performed By: #### L [id number] #### [facility] (BEAKER) [address] [place] [address] MCV (RBC) [Entitic vol] 99.5 fL High 82.0-98.0 [facility] Comment on above: Performed By: #### L [id number] #### [facility] (BEAKER) [address] [place] [address] Monocytes (Bld) [#/Vol] 0.81 10*3/uL Normal 0.10-1.00 [facility] Comment on above: Performed By: #### L [id number] #### [facility] ([facility]) [address] [place] [address] Monocytes/100 WBC (Bld) 13.6 % High 5.0-12.0 [facility] Comment on above: Performed By: #### L [id number] #### [facility] ([facility]) [address] [place] [address] Neutrophils (Bld) [#/Vol] 3.65 10*3/uL Normal 1.60-7.60 [facility] Comment on above: Performed By: #### L [id number] #### [facility] ([facility]) [address] [place] [address] Neutrophils/100 WBC (Bld) 61.2 % Normal 40.0-72.0 [facility] Comment on above: Performed By: #### L [id number] #### [facility] ([facility]) [address] [place] [address] NRBC (PER 100 WBCS) BY AUTOMATED COUNT 0.0 % Normal 0 [facility] Comment on above: Performed By: #### L [id number] #### [facility] ([facility]) [address] [place] [address] PLATELETS (10*3/UL) IN BLOOD AUTOMATED COUNT 147 10*3/uL Low 150-400 [facility] Comment on above: Performed By: #### L [id number] #### [facility] ([facility]) [address] [place] [address] RBC (Bld) [#/Vol] 4.09 10*6/uL Low 4.20-5.70 [facility] Comment on above: Performed By: #### L [id number] #### [facility] (BEAKER) [address] [place] [address] WBC (Bld) [#/Vol] 5.97 10*3/uL Normal 4.00-10.60 [facility] Comment on above: Performed By: #### L [id number] #### [facility] (BEAKER) [address] [place] [address] MAGNESIUMon 04-14-2024 Magnesium [Mass/Vol] 2.0 mg/dL Normal 1.9-2.7 [facility] Comment on above: Performed By: #### L [id number] #### [facility] (BEAKER) [address] [place] [address] NURSNOTEon 04-14-2024 NURSNOTE Bedside shift report was done at 0705. Nightshift RN had been slowly removing air from TR band. Upon entering room together, financial writer and nightshift RN noticed the cath site was oozing. Nightshift RN inserted air back in for a total of 12ml. The oozing stopped. Trapeze Performer informed battery tester, Dr. Lindsay, of the issue and he came to assess the site and the patient. Dr. Lindsay instructed financial writer to keep TR band in place for 1 hour and then begin slowly removing air per protocol. Trapeze Performer continued cath site checks frequently and at 0830 attempted to take 2ml of air out. After 2ml of air taken out, site began to ooze again. Trapeze Performer informed Dr. Lindsay and he again assessed the site and the patient. Dr. Lindsay informed financial writer to put the 2ml of air back in and await further instruction, as he would reach out to Dr. Manuel. Trapeze Performer continued frequent cath site checks and at [address] Lindsay it appeared to be oozing again despite the TR band being inflated with 12ml of air and offered to hold pressure. Dr. Lindsay instructed to keep TR band in place. Trapeze Performer continues frequent cath site checks. Normal [facility] 30on 04-13-2024 30 Daily Case Managemen t Update Multidisciplinary rounds have been completed. Barriers to Discharge: [facility] with [facility], trop 1.0 and trending, cardio consulted started on IV heparin, possible plan for cath tomorrow. Discharge dispo: PT/OT rec home, Plan at this time is for patient to discharge home when medically ready. Diet: Dietary Orders (From admission, onward) Start Ordered 04/14/24 0001 Diet NPO Diet effective midnight Comments: Sips with medications Question: Reason for NPO: Answer: Operation/Procedure 04/13/24 1436 04/13/24 1059 Regular Diet Heart Healthy/HTN, CABG,Stroke, (2gNA, low fat, low cholesterol) Diet effective now Question Answer Comment Room Service? Yes Fat restriction: Heart Healthy/HTN, CABG,Stroke, (2gNA, low fat, low cholesterol) 04/13/24 1058 Physician Expected Discharge Date: 04/15/2024 Discharge Delays: PT Six Click Score: 23 OT Six Click Score: 21 PT Recommendations: Home OT Recommendations: Home New Consults: Ancillary Consults (From admission, onward) Start Ordered 04/12/24 1622 Inpatient Consult to Social Work Once Provider: (Not yet assigned) Question Answer Comment Is discharge planning needed? If yes, who is requesting discharge planning? Provider Select all services needed for the patient Other Other: d/c planning 04/12/24 1626 Therapy Orders (From admission, onward) Start Ordered 04/12/24 1622 OT eval and treat Until therapy completed Question: Reason for OT? Answer: D/C recs 04/12/24 1626 Normal [facility] 30 The patient is Moder ately Stable - Low risk of patient condition declining or worsening The patient's goals for the shift include rest; comfort The clinical goals for the shift include VSS Problem: Pain - Adult Goal: Verbalizes/displays adequate comfort level or baseline comfort level Outcome: Progressing Problem: Safety - Adult Goal: Free from fall injury Outcome: Progressing Problem: Discharge Planning Goal: Discharge to home or other facility with appropriate resources Outcome: Progressing Problem: Chronic Conditions and Co-morbidities Goal: Patient's chronic conditions and co-morbidity symptoms are monitored and maintained or improved Outcome: Progressing Normal [facility] 30 The patient is Moder ately Stable - Low risk of patient condition declining or worsening The patient's goals for the shift include Rest/Comfort The clinical goals for the shift include Stable vital signs Normal [facility] AMMONIAon 04-13-2024 AMMONIA (UMOL/L) IN PLASMA 31 umol/L Normal 18-72 [facility] Comment on above: Performed By: #### L [id number] #### [facility] (BEAKER) [address] [place] [address] ANESon 04-13-2024 ANES -------- Attestation signed by Mason Almeida MD at 04/13/2024 11:42 PM I have seen and examined Mr. Olson with Dr. Bray and agree with her history, exam and assessment.. Patient: Annelise Olson Procedure Information Date/Time: 04/13/24 2300 Procedures: Coronary bypass graft study Coronary angiography Location: [facility] 3 / [facility] (Cath) Providers: Mason Almeida MD Clinical information reviewed: Allergies Meds Physical Exam Airway Mallampati: II TM distance: <3 FB Neck ROM: full Cardiovascular - normal exam Rhythm: regular Rate: normal (-) murmur, peripheral edema, JVD Dental Pulmonary - normal exam Breath sounds clear to auscultation Abdominal - normal exam Abdomen: soft Anesthesia Plan ASA 3 other (Conscious sedation) Anesthetic plan and risks discussed with patient. Use of blood products discussed with patient who consented to blood products. Plan discussed with attending. Additional Equipment Requests Normal [facility] APTTon 04-13-2024 ACTIVATED PARTIAL THROMBOPLASTIN TIME IN PPP BY COAGULATION ASSAY 106.3 Seconds High 25.0-35.0 [facility] Comment on above: Result Comment: Clin ical significance of the APTT is questionable in the presence of heparin. Performed By: #### L [id number] #### [facility] (BEAKER) [address] [place] [address] ACTIVATED PARTIAL THROMBOPLASTIN TIME IN PPP BY COAGULATION ASSAY 162.6 Seconds Critically high 25.0-35.0 [facility] Comment on above: Result Comment: Clin ical significance of the APTT is questionable in the presence of heparin. Performed By: #### L [id number] ####[facility] ([facility])[address] [place] [address] ACTIVATED PARTIAL THROMBOPLASTIN TIME IN PPP BY COAGULATION ASSAY 168.7 Seconds Critically high 25.0-35.0 [facility] Comment on above: Result Comment: Clin ical significance of the APTT is questionable in the presence of heparin. Performed By: #### L [id number] ####[facility] ([facility])[address] [place] [address] ACTIVATED PARTIAL THROMBOPLASTIN TIME IN PPP BY COAGULATION ASSAY 137.5 Seconds Critically high 25.0-35.0 [facility] Comment on above: Result Comment: Clin ical significance of the APTT is questionable in the presence of heparin. Performed By: #### L [id number] ####[facility] ([facility])[address] [place] [address] BASIC METABOLIC PANELon 12-0 Anion gap [Moles/Vol] 10 mmol/L Normal 7-20 [facility] Comment on above: Performed By: #### L [id number] ####[facility] ([facility])[address] [place] [address] Calcium [Mass/Vol] 8.5 mg/dL Low 8.6-10.3 [facility] Comment on above: Performed By: #### L [id number] ####[facility] ([facility])[address] [place] [address] Chloride [Moles/Vol] 104 mmol/L Normal 98-107 [facility] Comment on above: Performed By: #### L [id number] ####[facility] ([facility])[address] [place] [address] CO2 [Moles/Vol] 25 mmol/L Normal 21-31 [facility] Comment on above: Performed By: #### L [id number] ####[facility] ([facility])[address] [place] [address] Creatinine [Mass/Vol] 1.26 mg/dL Normal 0.70-1.30 [facility] Comment on above: Performed By: #### L [id number] ####[facility] ([facility])[address] [place] [address] GLOMERULAR FILTRATION RATE ML/MIN/1.73 SQ M.PREDICTED 55.2 mL/min/1.73m*2 Low >60.0 [facility] Comment on above: Result Comment: The [facility]???s estimated glomerular filtration rate (eGFR) will no longer include consideration of race in its calculation. The National Kidney Foundation???s eGFR Task Force developed new recommendations for the estimation of the glomerular filtration rate in the [place] They recommend immediate implementation of the new equation refit without the race variable in all laboratories because the calculation does not include race. In addition to not including race in the calculation and reporting, it included diversity in its development, and has acceptable performance characteristics and potential consequences that do not disproportionately affect any one group of individuals. Performed By: #### L [id number] ####[facility] ([facility])[address] [place] [address] Glucose [Mass/Vol] 88 mg/dL Normal 70-100 [facility] Comment on above: Performed By: #### L [id number] ####[facility] ([facility])[address] [place] [address] Potassium [Moles/Vol] 3.7 mmol/L Normal 3.5-5.1 [facility] Comment on above: Performed By: #### L [id number] ####[facility] ([facility])[address] [place] [address] Sodium [Moles/Vol] 135 mmol/L Low 136-145 [facility] Comment on above: Performed By: #### L [id number] ####[facility] ([facility])[address] [address] Urea nitrogen [Mass/Vol] 25 mg/dL Normal 7-25 [facility] Comment on above: Performed By: #### L [id number] ####[facility] ([facility])[address] [place] [address] UREA NITROGEN/CREATININ E (MASS RATIO) IN SER/PLAS 19.8 Normal [facility] Comment on above: Performed By: #### L [id number] ####[facility] ([facility])[address] [place] [address] CBC WITH AUTO DIFFERENTIALon 04-13-2024 Basophils (Bld) [#/Vol] 0.05 10*3/uL Normal 0.00-0.20 [facility] Comment on above: Performed By: #### L [id number] #### [facility] ([facility]) [address] [place] [address] Basophils/100 WBC (Bld) 0.8 % Normal 0.0-1.0 [facility] Comment on above: Performed By: #### L [id number] #### [facility] ([facility]) [address] [place] [address] Eosinophils (Bld) [#/Vol] 0.27 10*3/uL Normal 0.00-0.50 [facility] Comment on above: Performed By: #### L [id number] #### [facility] ([facility]) [address] [place] [address] Eosinophils/100 WBC (Bld) 4.1 % Normal 0.0-6.0 [facility] Comment on above: Performed By: #### L [id number] #### [facility] ([facility]) [address] [place] [address] Erythrocyte distribution width (RBC) [Ratio] 12.6 % Normal 11.5-15.0 [facility] Comment on above: Performed By: #### L [id number] #### [facility] ([facility]) [address] [place] [address] ERYTHROCYTE MEAN CORPUSCULAR HEMOGLOBIN CONCENTRATION (G/DL) BY AUTOMATED 34.2 g/dL Normal 32.0-35.0 [facility] Comment on above: Performed By: #### L [id number] #### [facility] ([facility]) [address] [place] [address] Hematocrit (Bld) [Volume fraction] 46.8 % Normal 39.0-55.0 [facility] Comment on above: Performed By: #### L [id number] #### [facility] ([facility]) [address] [place] [address] Hemoglobin (Bld) [Mass/Vol] 16.0 g/dL Normal 13.0-17.0 [facility] Comment on above: Performed By: #### L [id number] #### [facility] ([facility]) [address] [place] [address] Immature granulocytes (Bld) [#/Vol] 0.02 10*3/uL Normal 0.00-0.20 [facility] Comment on above: Performed By: #### L [id number] #### [facility] ([facility]) [address] [place] [address] Immature granulocytes/100 WBC (Bld) 0.3 % Normal 0.0-1.0 [facility] Comment on above: Performed By: #### L [id number] #### [facility] ([facility]) [address] [place] [address] Lymphocytes (Bld) [#/Vol] 1.65 10*3/uL Normal 1.20-4.00 [facility] Comment on above: Performed By: #### L [id number] #### [facility] ([facility]) [address] [place] [address] Lymphocytes/100 WBC (Bld) 25.0 % Normal 20.0-45.0 [facility] Comment on above: Performed By: #### L [id number] #### [facility] (BEAKER) [address] [place] [address] MCH (RBC) [Entitic mass] 34.6 pg High 27.0-33.0 [facility] Comment on above: Performed By: #### L [id number] #### [facility] ([facility]) [address] [place] [address] MCV (RBC) [Entitic vol] 101.3 fL High 82.0-98.0 [facility] Comment on above: Performed By: #### L [id number] #### [facility] ([facility]) [address] [place] [address] Monocytes (Bld) [#/Vol] 0.81 10*3/uL Normal 0.10-1.00 [facility] Comment on above: Performed By: #### L [id number] #### [facility] ([facility]) [address] [place] [address] Monocytes/100 WBC (Bld) 12.3 % High 5.0-12.0 [facility] Comment on above: Performed By: #### L [id number] #### [facility] ([facility]) [address] [place] [address] Neutrophils (Bld) [#/Vol] 3.80 10*3/uL Normal 1.60-7.60 [facility] Comment on above: Performed By: #### L [id number] #### [facility] ([facility]) [address] [place] [address] Neutrophils/100 WBC (Bld) 57.5 % Normal 40.0-72.0 [facility] Comment on above: Performed By: #### L [id number] #### [facility] ([facility]) [address] [place] [address] NRBC (PER 100 WBCS) BY AUTOMATED COUNT 0.0 % Normal 0 [facility] Comment on above: Performed By: #### L [id number] #### [facility] [facility] ([facility]) [address] [place] [address] PLATELETS (10*3/UL) IN BLOOD AUTOMATED COUNT 167 10*3/uL Normal 150-400 [facility] Comment on above: Performed By: #### L [id number] #### [facility] ([facility]) [address] [place] [address] RBC (Bld) [#/Vol] 4.62 10*6/uL Normal 4.20-5.70 [facility] Comment on above: Performed By: #### L [id number] #### [facility] ([facility]) [address] [place] [address] WBC (Bld) [#/Vol] 6.60 10*3/uL Normal 4.00-10.60 [facility] Comment on above: Performed By: #### L [id number] #### [facility] ([facility]) [address] [place] [address] Basophils (Bld) [#/Vol] 0.03 10*3/uL Normal 0.00-0.20 [facility] Comment on above: Performed By: #### L [id number] #### [facility] ([facility]) [address] [place] [address] Basophils/100 WBC (Bld) 0.6 % Normal 0.0-1.0 [facility] Comment on above: Performed By: #### L [id number] #### [facility] ([facility]) [address] [place] [address] Eosinophils (Bld) [#/Vol] 0.33 10*3/uL Normal 0.00-0.50 [facility] Comment on above: Performed By: #### L [id number] #### [facility] ([facility]) [address] [place] [address] Eosinophils/100 WBC (Bld) 6.3 % High 0.0-6.0 [facility] Comment on above: Performed By: #### L [id number] #### [facility] ([facility]) [address] [place] [address] Erythrocyte distribution width (RBC) [Ratio] 12.5 % Normal 11.5-15.0 [facility] Comment on above: Performed By: #### L [id number] #### [facility] ([facility]) [address] [place] [address] ERYTHROCYTE MEAN CORPUSCULAR HEMOGLOBIN CONCENTRATION (G/DL) BY AUTOMATED 34.3 g/dL Normal 32.0-35.0 [facility] Comment on above: Performed By: #### L [id number] #### [facility] ([facility]) [address] [place] [address] Hematocrit (Bld) [Volume fraction] 41.7 % Normal 39.0-55.0 [facility] Comment on above: Result Comment: PV = 48.7 @ 04/12/24 Performed By: #### L [id number] #### [facility] ([facility]) [address] [place] [address] Hemoglobin (Bld) [Mass/Vol] 14.3 g/dL Normal 13.0-17.0 [facility] Comment on above: Result Comment: PV = 16.9 @ 04/12/24 Performed By: #### L [id number] #### [facility] ([facility]) [address] [place] [address] Immature granulocytes (Bld) [#/Vol] 0.01 10*3/uL Normal 0.00-0.20 [facility] Comment on above: Performed By: #### L [id number] #### [facility] ([facility]) [address] [place] [address] Immature granulocytes/100 WBC (Bld) 0.2 % Normal 0.0-1.0 [facility] Comment on above: Performed By: #### L [id number] #### [facility] ([facility]) [address] [place] [address] Lymphocytes (Bld) [#/Vol] 1.36 10*3/uL Normal 1.20-4.00 [facility] Comment on above: Performed By: #### L [id number] #### [facility] ([facility]) [address] [place] [address] Lymphocytes/100 WBC (Bld) 26.1 % Normal 20.0-45.0 [facility] Comment on above: Performed By: #### L [id number] #### [facility] ([facility]) [address] [place] [address] MCH (RBC) [Entitic mass] 34.7 pg High 27.0-33.0 [facility] Comment on above: Performed By: #### L [id number] #### [facility] ([facility]) [address] [place] [address] MCV (RBC) [Entitic vol] 101.2 fL High 82.0-98.0 [facility] Comment on above: Performed By: #### L [id number] #### [facility] ([facility]) [address] [place] [place] [address] Monocytes (Bld) [#/Vol] 0.63 10*3/uL Normal 0.10-1.00 [facility] Comment on above: Performed By: #### L [id number] #### [facility] ([facility]) [address] [place] [address] Monocytes/100 WBC (Bld) 12.1 % High 5.0-12.0 [facility] Comment on above: Performed By: #### L [id number] #### [facility] ([facility]) [address] [place] [address] Neutrophils (Bld) [#/Vol] 2.86 10*3/uL Normal 1.60-7.60 [facility] Comment on above: Performed By: #### L [id number] #### [facility] ([facility]) [address] [place] [address] Neutrophils/100 WBC (Bld) 54.7 % Normal 40.0-72.0 [facility] Comment on above: Performed By: #### L [id number] #### [facility] ([facility]) [address] [place] [address] NRBC (PER 100 WBCS) BY AUTOMATED COUNT 0.0 % Normal 0 [facility] Comment on above: Performed By: #### L [id number] #### [facility] ([facility]) [address] [place] [address] PLATELETS (10*3/UL) IN BLOOD AUTOMATED COUNT 152 10*3/uL Normal 150-400 [facility] Comment on above: Performed By: #### L [id number] #### [facility] ([facility]) [address] [place] [address] RBC (Bld) [#/Vol] 4.12 10*6/uL Low 4.20-5.70 [facility] Comment on above: Performed By: #### L [id number] #### [facility] ([facility]) [address] [place] [address] WBC (Bld) [#/Vol] 5.22 10*3/uL Normal 4.00-10.60 [facility] Comment on above: Performed By: #### L [id number] #### [facility] ([facility]) [address] [place] [address] COMPREHENSIVE METABOLIC PANE Yonatan 04-13-2024 Albumin [Mass/Vol] 4.3 g/dL Normal 3.5-5.7 [facility] Comment on above: Performed By: #### L [id number] ####[facility] ([facility])[address] [place] [address] ALP [Catalytic activity/Vol] 79 U/L Normal 34-104 [facility] Comment on above: Performed By: #### L [id number] ####[facility] ([facility])[address] [place] [address] ALT [Catalytic activity/Vol] 11 U/L Normal 7-52 [facility] Comment on above: Performed By: #### L [id number] ####[facility] ([facility])[address] [place] [address] Anion gap [Moles/Vol] 13 mmol/L Normal 7-20 [facility] Comment on above: Performed By: #### L [id number] ####[facility] ([facility])[address] [place] [address] AST [Catalytic activity/Vol] 27 U/L Normal 13-39 [facility] Comment on above: Performed By: #### L [id number] ####[facility] ([facility])[address] [place], [place] [address] Bilirubin [Mass/Vol] 1.1 mg/dL High 0.3-1.0 [facility] Comment on above: Performed By: #### L [id number] ####[facility] ([facility])[address] [place] [address] Calcium [Mass/Vol] 9.4 mg/dL Normal 8.6-10.3 [facility] Comment on above: Performed By: #### L [id number] ####[facility] ([facility])[address] [place] [address] Chloride [Moles/Vol] 100 mmol/L Normal 98-107 [facility] Comment on above: Performed By: #### L [id number] ####[facility] ([facility])[address] [place] [address] CO2 [Moles/Vol] 25 mmol/L Normal 21-31 [facility] Comment on above: Performed By: #### L [id number] ####[facility] ([facility])[address] [place], [place] [address] Creatinine [Mass/Vol] 1.32 mg/dL High 0.70-1.30 [facility] Comment on above: Performed By: #### L [id number] ####[facility] ([facility])[address] [place] [address] GLOMERULAR FILTRATION RATE ML/MIN/1.73 SQ M.PREDICTED 52.2 mL/min/1.73m*2 Low >60.0 [facility] Comment on above: Result Comment: The [facility]???s estimated glomerular filtration rate (eGFR) will no longer include consideration of race in its calculation. The National Kid[employer] Foundation???s eGFR Task Force developed new recommendations for the estimation of the glomerular filtration rate in the [place] They recommend immediate implementation of the new equation refit without the race variable in all laboratories because the calculation does not include race. In addition to not including race in the calculation and reporting, it included diversity in its development, and has acceptable performance characteristics and potential consequences that do not disproportionately affect any one group of individuals. Performed By: #### L [id number] ####[facility] ([facility])[address] [place] [address] Glucose [Mass/Vol] 106 mg/dL High 70-100 [facility] Comment on above: Performed By: #### L [id number] ####[facility] ([facility])[address] [place] [address] Potassium [Moles/Vol] 3.9 mmol/L Normal 3.5-5.1 [facility] Comment on above: Performed By: #### L [id number] ####[facility] ([facility])[address] [place] [address] Protein [Mass/Vol] 7.3 g/dL Normal 6.0-8.3 [facility] Comment on above: Performed By: #### L [id number] ####[facility] ([facility])[address] [place] [address] Sodium [Moles/Vol] 134 mmol/L Low 136-145 [facility] Comment on above: Performed By: #### L [id number] ####[facility] ([facility])[address] [place] [address] Urea nitrogen [Mass/Vol] 27 mg/dL High 7-25 [facility] Comment on above: Performed By: #### L [id number] ####[facility] ([facility])[address] [place] [address] UREA NITROGEN/CREATININ E (MASS RATIO) IN SER/PLAS 20.5 Normal [facility] Comment on above: Performed By: #### L [id number] ####[facility] ([facility])[address] [place] [address] CONSULTon 04-13-2024 CONSULT -------- Attestation signed by Joseluis Manuel MD at 04/13/2024 2:57 PM By using the attestations below, the signing clinician agrees that I have read and verify that the documentation has been personally reviewed by me and ensure that the documentation accurately reflects the encounter. GC: I personally saw this patient on the day of the encounter, performed the chan portion(s) of the service and participated in the management and confirm the resident's documentation. Please note there may be an additional personal documentation from me. Additional Comments: patient has history of CAD with CABG in 1993 He is admitted with chest pain and diagnosed with NSTEMI He takes Xarelto anticoagulation which we are holding for procedures We are planning coronary and bypass graft angiogram for 04/14/2024 Cardiology Consult Note Reason for Consult: NSTEMI HPI: Annelise Olson is a 88 y.o. male with a PMH of hypertension, ischemic cardiomyopathy, coronary artery disease status post CABG, heart failure with ejection fraction of 4045%, atrial fibrillation on Xarelto, chronic kidney disease, and GERD presents as a transfer from an outside hospital with a diagnosis of STEMI. At 08:30 AM on the day of admission, he experienced chest pain at rest, prompting activation of EMS and transport to [facility] ER. The patient described the pain as aching, rated 6/10 in intensity, without radiation to the left arm, jaw, or neck. He also reported associated shortness of breath, but denied lightheadedness, dizziness, palpitations, nausea, or vomiting. The patient self-administered nitroglycerin, which provided some relief prior to EMS arrival. Upon arrival in the ER, initial laboratory results showed a troponin level of 24.4, which israel to 152.5 (high-intensity scale: 4.0-76.1). The initial EKG demonstrated new ST depression in the lateral leads, compared to an EKG from June. The patient was treated with nitroglycerin, morphine, and aspirin, and a repeat EKG showed improvement in the ST depression. Given that the patient is established with [facility] cardiology, he was transferred for further evaluation, with coronary catheterization planned for the following day. The patient's vital signs remained stable throughout. Cardiology was consulted for NSTEMI. Cardiology ROS: Review of Systems is negative except as per above. Past Medical History He has a past medical history of Abnormal ECG, Arrhythmia, Atrial flutter (CMS/HCC), Coronary artery disease, Heart valve disease, Hyperlipidemia, Hypertension, and Ischemic cardiomyopathy. Surgical History He has a past surgical history that includes Atrial ablation surgery (06/13/2020); Cardioversion (04/07/2019); and Hip surgery (05/06/2012). Social History He reports that he has never smoked. He has never been exposed to tobacco smoke. He has never used smokeless tobacco. He reports that he does not drink alcohol and does not use drugs. Family History Family History Problem Relation Name Age of Onset Coronary artery disease Mother Coronary artery disease Father Allergies Naproxen Medications Current Outpatient Medications Medication Instructions aspirin 81 mg chewable tablet Daily RT atorvastatin (LIPITOR) 40 mg, oral, Daily before evening meal dapagliflozin propanediol (FARXIGA) 10 mg, oral, Daily furosemide (LASIX) 40 mg, oral, Every morning ginkgo biloba 40 mg tablet 1 tablet, oral, Daily isosorbide mononitrate ER (IMDUR) 30 mg, oral, Daily, Do not crush or chew. btnxr-hu-2-xdx-dho-ynaevxk-a st (krill oil) [id number] mg capsule 90 mg, oral, Daily lisinopril 10 mg, oral, Daily metoprolol succinate XL (TOPROL-XL) 12.5 mg, oral, Daily, Do not crush or chew. nitroglycerin (Nitrostat) 0.[address] 1 tablet under the tongue if needed every 5 minutes for chest pain for 3 doses IF NO RELIEF AFTER FIRST DOSE CALL PRESCRIBER OR 911. omeprazole (PriLOSEC) 40 mg capsule Take 1 capsule every day by oral route. rivaroxaban (XARELTO) 20 mg, oral, Daily with evening meal, Take with food. traMADol (ULTRAM) 50 mg, oral ZyrTEC 10 mg, oral, Daily PRN Medications Prior to Admission Medication Sig Dispense Refill Last Dose aspirin 81 mg chewable tablet in the morning. 04/11/2024 atorvastatin (Lipitor) 40 mg tablet Take 40 mg by mouth before evening meal. 04/11/2024 dapagliflozin propanediol (Farxiga) 10 mg Take 1 tablet (10 mg) by mouth in the morning. 90 tablet 3 04/11/2024 furosemide (Lasix) 40 mg tablet TAKE 1 TABLET BY MOUTH IN THE MORNING 90 tablet 3 04/11/2024 ginkgo biloba 40 mg tablet Take 1 tablet by mouth 1 (one) time each day. 04/11/2024 isosorbide mononitrate ER (Imdur) 30 mg 24 hr tablet Take 1 tablet (30 mg) by mouth in the morning. Do not crush or chew. (more content not included)... Normal [facility] CT HEAD WO IV CONTRASTon CT HEAD WO IV CONTRAST CT HEAD WO IV CONTRAST 04/13/2024 9:40 PM SIGNS AND SYMPTOMS: Transient alteration of awareness, delirium TECHNIQUE: Multi-detector CT axial slices of the brain were obtained without IV contrast. All CT scans at this facility use dose modulation, iterative reconstruction, and/or weight based dosing when appropriate to reduce radiation dose to as low as reasonably achievable COMPARISON: None. FINDINGS: No evidence of acute intracranial hemorrhage or extra-axial fluid collection. Periventricular and subcortical white matter hypodensities compatible with chronic microvascular ischemic changes. No mass, mass effect, or shift of midline structures. 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 Catherine-white differentiation is preserved with no CT evidence for an acute infarct. Mildly prominent ventricles and cerebral sulci compatible with mild diffuse cerebral cortical atrophy. Intracranial atherosclerotic calcifications. Bilateral lens replacement. No depressed calvarial fractures. IMPRESSION: No evidence of acute intracranial abnormality. Approved by:Hussain Pantoja04/13/2024 10:28 PM. IAlexy,have reviewed the image(s) and agree with the findings in this report. Electronically signed: Alexy Bauer. 7 [facility] -------- Attestation signed by Mason Almeida MD at 04/13/2024 11:44 PM I have seen and examined Mr. Olson this evening with Dr. Bray. I discussed with he and his son the expected risks and benefits. He consents to proceed. H&P reviewed. The patient was examined and there are no changes to the H&P. Plan to proceed with coronary and bypass graft angiography due to NSTEMI. Procedure was explained to patient at length and in detail. Risks, benefits, and alternatives were discussed. Patient is informed that risks of this invasive procedure include, but are not limited to, bleeding, hematoma, kidney injury, CVA, arrythmia requiring defibrillation, need for emergent open heart surgery, and . Patient understands these risks and wishes to proceed. Signed, Radha Bray MD PGY-4 Hall Supervisor Pager: [phone] Normal [facility] HP -------- Attestation signed by Joseluis Manuel MD at 04/13/2024 2:57 PM By using the attestations below, the signing clinician agrees that I have read and verify that the documentation has been personally reviewed by me and ensure that the documentation accurately reflects the encounter. GC: I personally saw this patient on the day of the encounter, performed the chan portion(s) of the service and participated in the management and confirm the resident's documentation. Please note there may be an additional personal documentation from me. Additional Comments: patient has history of CAD with CABG in 1993 He is admitted with chest pain and diagnosed with NSTEMI He takes Xarelto anticoagulation which we are holding for procedures We are planning coronary and bypass graft angiogram for 04/14/2024 Cardiology Consult Note Reason for Consult: NSTEMI HPI: Annelise Olson is a 88 y.o. male with a PMH of hypertension, ischemic cardiomyopathy, coronary artery disease status post CABG, heart failure with ejection fraction of 4045%, atrial fibrillation on Xarelto, chronic kidney disease, and GERD presents as a transfer from an outside hospital with a diagnosis of STEMI. At 08:30 AM on the day of admission, he experienced chest pain at rest, prompting activation of EMS and transport to [facility] ER. The patient described the pain as aching, rated 6/10 in intensity, without radiation to the left arm, jaw, or neck. He also reported associated shortness of breath, but denied lightheadedness, dizziness, palpitations, nausea, or vomiting. The patient self-administered nitroglycerin, which provided some relief prior to EMS arrival. Upon arrival in the ER, initial laboratory results showed a troponin level of 24.4, which israel to 152.5 (high-intensity scale: 4.0-76.1). The initial EKG demonstrated new ST depression in the lateral leads, compared to an EKG from June. The patient was treated with nitroglycerin, morphine, and aspirin, and a repeat EKG showed improvement in the ST depression. Given that the patient is established with [facility] cardiology, he was transferred for further evaluation, with coronary catheterization planned for the following day. The patient's vital signs remained stable throughout. Cardiology was consulted for NSTEMI. Cardiology ROS: Review of Systems is negative except as per above. Past Medical History He has a past medical history of Abnormal ECG, Arrhythmia, Atrial flutter (CMS/HCC), Coronary artery disease, Heart valve disease, Hyperlipidemia, Hypertension, and Ischemic cardiomyopathy. Surgical History He has a past surgical history that includes Atrial ablation surgery (06/13/2020); Cardioversion (04/07/2019); and Hip surgery (05/06/2012). Social History He reports that he has never smoked. He has never been exposed to tobacco smoke. He has never used smokeless tobacco. He reports that he does not drink alcohol and does not use drugs. Family History Family History Problem Relation Name Age of Onset Coronary artery disease Mother Coronary artery disease Father Allergies Naproxen Medications Current Outpatient Medications Medication Instructions aspirin 81 mg chewable tablet Daily RT atorvastatin (LIPITOR) 40 mg, oral, Daily before evening meal dapagliflozin propanediol (FARXIGA) 10 mg, oral, Daily furosemide (LASIX) 40 mg, oral, Every morning ginkgo biloba 40 mg tablet 1 tablet, oral, Daily isosorbide mononitrate ER (IMDUR) 30 mg, oral, Daily, Do not crush or chew. sumhj-au-0-ids-uek-wtzhbjb-a st (krill oil) 1,657-962-67-80 mg capsule 90 mg, oral, Daily lisinopril 10 mg, oral, Daily metoprolol succinate XL (TOPROL-XL) 12.5 mg, oral, Daily, Do not crush or chew. nitroglycerin (Nitrostat) 0.[address] 1 tablet under the tongue if needed every 5 minutes for chest pain for 3 doses IF NO RELIEF AFTER FIRST DOSE CALL PRESCRIBER OR 911. omeprazole (PriLOSEC) [address] capsule Take 1 capsule every day by oral route. rivaroxaban (XARELTO) 20 mg, oral, Daily with evening meal, Take with food. traMADol (ULTRAM) 50 mg, oral ZyrTEC 10 mg, oral, Daily PRN Medications Prior to Admission Medication Sig Dispense Refill Last Dose aspirin 81 mg chewable tablet in the morning. 04/11/2024 atorvastatin (Lipitor) 40 mg tablet Take 40 mg by mouth before evening meal. 04/11/2024 dapagliflozin propanediol (Farxiga) 10 mg Take 1 tablet (10 mg) by mouth in the morning. 90 tablet 3 04/11/2024 furosemide (Lasix) 40 mg tablet TAKE 1 TABLET BY MOUTH IN THE MORNING 90 tablet 3 04/11/2024 ginkgo biloba 40 mg tablet Take 1 tablet by mouth 1 (one) time each day. 04/11/2024 isosorbide mononitrate ER (Imdur) 30 mg 24 hr tablet Take 1 tablet (30 mg) by mouth in the morning. Do not crush or chew. (more content not included)... Normal [facility] LACTIC ACID, PLASMAon 2023 LACTATE (MMOL/L) IN SER/PLAS 1.9 mmol/L Normal 0.5-2.2 [facility] Comment on above: Performed By: #### L [id number] #### [facility] (AKER) [address] [place] [address] MAGNESIUMon 04-13-2024 Magnesium [Mass/Vol] 2.1 mg/dL Normal 1.9-2.7 [facility] Comment on above: Performed By: #### L [id number] ####[facility] (BEAKER)[address] [place] [address] Magnesium [Mass/Vol] 2.1 mg/dL Normal 1.9-2.7 [facility] Comment on above: Performed By: #### L [id number] ####[facility] (AKER)[address] [place] [address] PROTIME-INRon 04-13-2024 INR IN PPP BY COAGULATION ASSAY 1.08 Normal 0.90-1.10 [facility] Comment on above: Result Comment: ACCC P RECOMMENDED INR FOR WARFARIN THERAPY CONDITION INR PROPHYLAXIS OF VENOUS THROMBOSIS 2-3 (HIGH-RISK SURGERY) TREATMENT OF VENOUS THROMBOSIS 2-3 TREATMENT OF PULMONARY EMBOLISM 2-3 PREVENTION OF SYSTEMIC EMBOLISM: 2-3 ACUTE MYOCARDIAL INFARCTION TISSUE HEART VALVES VALVULAR HEART DISEASE ATRIAL FIBRILLATION RECURRENT SYSTEMIC EMBOLISM MECHANICAL HEART VALVE 2.5-3.5 FROM: ORAL ANTICOAGULANTS. MECHANISM OF ACTION, CLINICAL EFFECTIVENESS, AND OPTIMAL THERAPEUTIC RANGE. CHEST 1995;108:[id number]. Performed By: #### L [id number] #### [facility] [address] [place] [address] PROTHROMBIN TIME (PT) IN PPP BY COAGULATION ASSAY 14.0 Seconds Normal 12.3-14.8 [facility] Comment on above: Performed By: #### L [id number] #### [facility] [facility] [address] [place] [address] TROPONIN Ion 04-13-2024 Troponin I.cardiac [Mass/Vol] 0.42 ng/mL Critically high 0.00-0.04 [facility] Comment on above: Result Comment: M-FL EVIOUS CRITICAL RESULT Previous result verified on 04/13/2024 2050 on specimen/case [id number] called with component Troponin I for procedure Troponin I with value 0.55 ng/mL. Performed By: #### L [id number] #### [facility]) [address] [place] [address] Troponin I.cardiac [Mass/Vol] 0.55 ng/mL Critically high 0.00-0.04 [facility] Comment on above: Result Comment: M-FL EVIOUS CRITICAL RESULT Previous result verified on 04/13/2024 1654 on specimen/case [id number] called with component Troponin I for procedure Troponin I x 1 with value 0.51 ng/mL. Performed By: #### L [id number] ####[facility])[address] [place] [address] Troponin I.cardiac [Mass/Vol] 0.51 ng/mL Critically high 0.00-0.04 [facility] Comment on above: Result Comment: M-FL EVIOUS CRITICAL RESULT Previous result verified on 04/13/2024 0500 on specimen/case [id number] called with component Troponin I for procedure Troponin I x 1 with value 1.09 ng/mL. Performed By: #### L [id number] #### [facility] ([facility]) [address] [place] [address] Troponin I.cardiac [Mass/Vol] 0.67 ng/mL Critically high 0.00-0.04 [facility] Comment on above: Result Comment: M-FL EVIOUS CRITICAL RESULT Previous result verified on 04/13/2024 0500 on specimen/case [id number] called with component Troponin I for procedure Troponin I x 1 with value 1.09 ng/mL. Performed By: #### L [id number] ####[facility] ([facility])[address] [place] [address] Troponin I.cardiac [Mass/Vol] 1.09 ng/mL Critically high 0.00-0.04 [facility] Comment on above: Result Comment: M-FL EVIOUS CRITICAL RESULT Previous result verified on 04/13/2024 0055 on specimen/case [id number] called with component Troponin I for procedure Troponin I x 1 with value 1.17 ng/mL. Performed By: #### L [id number] ####[facility] ([facility])[address] [place] [address] URINALYSIS WITH REFLEX CULTU REon 04-13-2024 BILIRUBIN, TOTAL PRESENCE IN URINE Negative Normal Negative [facility] Comment on above: Order Comment: Micro scopics not performed on urines with negative chemical reactions unless requested on original order. Performed By: #### L [id number] #### [facility] ([facility]) [address] [place] [address] Clarity (U) Clear Normal Clear [facility] Comment on above: Order Comment: Micro scopics not performed on urines with negative chemical reactions unless requested on original order. Performed By: #### L [id number] #### [facility] ([facility]) [address] [place] [address] Color (U) Colorless Normal Colorless, Yellow, Light-Yello w [facility] Comment on above: Order Comment: Micro scopics not performed on urines with negative chemical reactions unless requested on original order. Performed By: #### L [id number] #### [facility] ([facility]) [address] [place] [address] Glucose (U) [Mass/Vol] mg/dL Abnormal Normal [facility] Comment on above: Order Comment: Micro scopics not performed on urines with negative chemical reactions unless requested on original order. Performed By: #### L [id number] #### [facility] ([facility]) [address] [place] [address] HEMOGLOBIN PRESENCE IN URINE Negative Normal Negative [facility] Comment on above: Order Comment: Micro scopics not performed on urines with negative chemical reactions unless requested on original order. Performed By: #### L [id number] #### [facility] ([facility]) [address] [place] [address] Ketones Ql (U) Negative Normal Negative [facility] Comment on above: Order Comment: Micro scopics not performed on urines with negative chemical reactions unless requested on original order. Performed By: #### L [id number] #### [facility] ([facility]) [address] [place] [address] LEUKOCYTE ESTERASE PRESENCE IN URINE BY TEST STRIP Negative Normal Negative [facility] Comment on above: Order Comment: Micro scopics not performed on urines with negative chemical reactions unless requested on original order. Performed By: #### L [id number] #### [facility] ([facility]) [address] [place] [address] NITRITE PRESENCE IN URINE Negative Normal Negative [facility] Comment on above: Order Comment: Micro scopics not performed on urines with negative chemical reactions unless requested on original order. Performed By: #### L [id number] #### [facility] ([facility]) [address] [place] [address] pH (U) 6.5 [pH] Normal 5.0-8.0 [facility] Comment on above: Order Comment: Micro scopics not performed on urines with negative chemical reactions unless requested on original order. Performed By: #### L [id number] #### [facility] ([facility]) [address] [place] [address] Protein (U) [Mass/Vol] Negative Normal Negative [facility] Comment on above: Order Comment: Micro scopics not performed on urines with negative chemical reactions unless requested on original order. Performed By: #### L [id number] #### [facility] ([facility]) [address] [place] [address] Specific gravity (U) [Rel density] 1.005 Low 1.010-1.030 [facility] Comment on above: Order Comment: Micro scopics not performed on urines with negative chemical reactions unless requested on original order. Performed By: #### L [id number] #### [facility] ([facility]) [address] [place] [address] UROBILINOGEN (MG/DL) IN URINE Normal Normal Normal [facility] Comment on above: Order Comment: Micro scopics not performed on urines with negative chemical reactions unless requested on original order. Performed By: #### L [id number] #### [facility] ([facility]) [address] [place] [address] VENOUS BLOOD GAS WITH IONIZE D CALCIUMon 04-13-2024 Base excess Calc (BldV) [Moles/Vol] -0.6000 mmol/L Normal [facility] Comment on above: Performed By: #### L [id number] ####[facility] RESPIRATORY [id number] [place] [address] [place] CALCIUM IONIZED (MMOL/L) IN BLOOD 1.16 mmol/L Normal 1.15-1.33 [facility] Comment on above: Performed By: #### L [id number] ####[facility] RESPIRATORY [id number] [place] [address] [place] CO2 (BldV) [Partial pressure] 46 mm[Hg] Normal 40-50 [facility] Comment on above: Performed By: #### L [id number] ####[facility] RESPIRATORY [id number] [place] [address] [facility] HCO3 (Bld) [Moles/Vol] 25.4 mmol/L Normal [facility] Comment on above: Performed By: #### L [id number] ####[facility] RESPIRATORY [id number] [place] [address] [facility] Oxygen (BldV) [Partial pressure] 35 mm[Hg] Normal 35-45 [facility] Comment on above: Performed By: #### L [id number] ####[facility] RESPIRATORY [id number] [place] [address] [facility] OXYGEN SATURATION (%) IN VENOUS BLOOD 57.7 % Low 65.0-75.0 [facility] Comment on above: Performed By: #### L [id number] ####[facility] RESPIRATORY [id number] [place] [address] [facility] PH OF VENOUS BLOOD 7.35 Normal 7.31-7.41 [facility] Comment on above: Performed By: #### L [id number] ####[facility] RESPIRATORY [id number] [place] [address] [facility] 30on 04-12-2024 30 The patient is Moder ately Stable - Low risk of patient condition declining or worsening The patient's goals for the shift include Comfort/Rest The clinical goals for the shift include Stable vital signs Normal [facility] APTTon 04-12-2024 ACTIVATED PARTIAL THROMBOPLASTIN TIME IN PPP BY COAGULATION ASSAY 91.8 Seconds High 25.0-35.0 [facility] Comment on above: Order Comment: Check aPTT every 6 hours while on heparin infusion, or per protocol. Result Comment: Clin ical significance of the APTT is questionable in the presence of heparin. Performed By: #### L [id number] #### [facility] ([facility]) [address] [place] [address] BASIC METABOLIC PANELon Anion gap [Moles/Vol] 14 mmol/L Normal 7-20 [facility] Comment on above: Performed By: #### L [id number] #### [facility] ([facility]) [address] [place] [address] Calcium [Mass/Vol] 9.7 mg/dL Normal 8.6-10.3 [facility] Comment on above: Performed By: #### L [id number] #### [facility] ([facility]) [address] [place] [address] Chloride [Moles/Vol] 102 mmol/L Normal 98-107 [facility] Comment on above: Performed By: #### L [id number] #### [facility] ([facility]) [address] [place] [address] CO2 [Moles/Vol] 26 mmol/L Normal 21-31 [facility] Comment on above: Performed By: #### L [id number] #### [facility] ([facility]) [address] [place] [address] Creatinine [Mass/Vol] 1.25 mg/dL Normal 0.70-1.30 [facility] Comment on above: Performed By: #### L [id number] #### [facility] ([facility]) [address] [place] [address] GLOMERULAR FILTRATION RATE ML/MIN/1.73 SQ M.PREDICTED 55.7 mL/min/1.73m*2 Low >60.0 [facility] Comment on above: Result Comment: The [facility]???s estimated glomerular filtration rate (eGFR) will no longer include consideration of race in its calculation. The National Kid[employer] Foundation???s eGFR Task Force developed new recommendations for the estimation of the glomerular filtration rate in the [place] They recommend immediate implementation of the new equation refit without the race variable in all laboratories because the calculation does not include race. In addition to not including race in the calculation and reporting, it included diversity in its development, and has acceptable performance characteristics and potential consequences that do not disproportionately affect any one group of individuals. Performed By: #### L [id number] #### [facility] (BEAKER) [address] [place] [address] Glucose [Mass/Vol] 93 mg/dL Normal 70-100 [facility] Comment on above: Performed By: #### L [id number] #### [facility] ([facility]) [address] [place] [address] Potassium [Moles/Vol] 3.8 mmol/L Normal 3.5-5.1 [facility] Comment on above: Performed By: #### L [id number] #### [facility] ([facility]) [address] [place] [address] Sodium [Moles/Vol] 138 mmol/L Normal 136-145 [facility] Comment on above: Performed By: #### L [id number] #### [facility] ([facility]) [address] [place] [address] Urea nitrogen [Mass/Vol] 19 mg/dL Normal 7-25 [facility] Comment on above: Performed By: #### L [id number] #### [facility] ([facility]) [address] [place] [address] UREA NITROGEN/CREATININ E (MASS RATIO) IN SER/PLAS 15.2 Normal [facility] Comment on above: Performed By: #### L [id number] #### [facility] ([facility]) [address] [place] [address] Basophils Auto (Bld) [#/Vol] on 04-12-2024 Basophils (Bld) [#/Vol] Automated basophil count 0.0-0.1 [facility] Basophils/100 WBC Auto (Bld) on 04-12-2024 Basophils/100 WBC (Bld) Automated basophil % 0.2-2.0 [facility] CBC WITH AUTO DIFFERENTIALon 04-12-2024 Basophils (Bld) [#/Vol] 0.02 10*3/uL Normal 0.00-0.20 [facility] Comment on above: Performed By: #### L [id number] #### [facility] ([facility]ER) [address] [place] [address] Basophils/100 WBC (Bld) 0.4 % Normal 0.0-1.0 [facility] Comment on above: Performed By: #### L [id number] #### [facility] ([facility]) [address] [place] [address] Eosinophils (Bld) [#/Vol] 0.12 10*3/uL Normal 0.00-0.50 [facility] Comment on above: Performed By: #### L [id number] #### [facility] (AKER) [address] [place] [address] Eosinophils/100 WBC (Bld) 2.2 % Normal 0.0-6.0 [facility] Comment on above: Performed By: #### L [id number] #### [facility] ([facility]) [address] [place] [address] Erythrocyte distribution width (RBC) [Ratio] 12.4 % Normal 11.5-15.0 [facility] Comment on above: Performed By: #### L [id number] #### [facility] ([facility]) [address] [place] [address] ERYTHROCYTE MEAN CORPUSCULAR HEMOGLOBIN CONCENTRATION (G/DL) BY AUTOMATED 34.7 g/dL Normal 32.0-35.0 [facility] Comment on above: Performed By: #### L [id number] #### [facility] ([facility]ER) [address] [place] [address] Hematocrit (Bld) [Volume fraction] 48.7 % Normal 39.0-55.0 [facility] Comment on above: Performed By: #### L [id number] #### [facility] (BE[facility]ER) [address] [place] [address] Hemoglobin (Bld) [Mass/Vol] 16.9 g/dL Normal 13.0-17.0 [facility] Comment on above: Performed By: #### L [id number] #### [facility] (BEAKER) [address] [place] [address] Immature granulocytes (Bld) [#/Vol] 0.01 10*3/uL Normal 0.00-0.20 [facility] Comment on above: Performed By: #### L [id number] #### [facility] (BEAKER) [address] [place] [address] Immature granulocytes/100 WBC (Bld) 0.2 % Normal 0.0-1.0 [facility] Comment on above: Performed By: #### L [id number] #### [facility] ([facility]) [address] [address] Lymphocytes (Bld) [#/Vol] 1.23 10*3/uL Normal 1.20-4.00 [facility] Comment on above: Performed By: #### L [id number] #### [facility] ([facility]) [address] [place] [address] Lymphocytes/100 WBC (Bld) 22.1 % Normal 20.0-45.0 [facility] Comment on above: Performed By: #### L [id number] #### [facility] ([facility]) [address] [place] [address] MCH (RBC) [Entitic mass] 35.2 pg High 27.0-33.0 [facility] Comment on above: Performed By: #### L [id number] #### [facility] (BEAKER) [address] [place] [address] MCV (RBC) [Entitic vol] 101.5 fL High 82.0-98.0 [facility] Comment on above: Performed By: #### L [id number] #### [facility] (BEAKER) [address] [place] [address] Monocytes (Bld) [#/Vol] 0.61 10*3/uL Normal 0.10-1.00 [facility] Comment on above: Performed By: #### L [id number] #### [facility] (BEAKER) [address] [place] [address] Monocytes/100 WBC (Bld) 11.0 % Normal 5.0-12.0 [facility] Comment on above: Performed By: #### L [id number] #### [facility] ([facility]) [address] [place] [address] Neutrophils (Bld) [#/Vol] 3.57 10*3/uL Normal 1.60-7.60 [facility] Comment on above: Performed By: #### L [id number] #### [facility] ([facility]) [address] [place] [address] Neutrophils/100 WBC (Bld) 64.1 % Normal 40.0-72.0 [facility] Comment on above: Performed By: #### L [id number] #### [facility] ([facility]) [address] [place] [address] NRBC (PER 100 WBCS) BY AUTOMATED COUNT 0.0 % Normal 0 [facility] Comment on above: Performed By: #### L [id number] #### [facility] ([facility]) [address] [place] [address] PLATELETS (10*3/UL) IN BLOOD AUTOMATED COUNT 177 10*3/uL Normal 150-400 [facility] Comment on above: Performed By: #### L [id number] #### [facility] ([facility]) [address] [place] [address] RBC (Bld) [#/Vol] 4.80 10*6/uL Normal 4.20-5.70 [facility] Comment on above: Performed By: #### L [id number] #### [facility] ([facility]) [address] [place] [address] WBC (Bld) [#/Vol] 5.56 10*3/uL Normal 4.00-10.60 [facility] Comment on above: Performed By: #### L [id number] #### [facility] (BEAKER) [address] [place] [address] Eosinophils/100 WBC Auto (Bl d)on 04-12-2024 Eosinophils/100 WBC (Bld) Automated eosinophil % 0.9-7.0 [facility] Erythrocyte distribution wid th Auto (RBC) [Ratio]on 04-12-2024 Erythrocyte distribution width (RBC) [Ratio] Erythrocyte distribution width [Ratio] by Automated count 11.0-15.0 [facility] Estimated glomerular filtrat ion rate (GFR) non- Americanon 04-12-2024 GFR/1.73 sq M.predicted among non-blacks MDRD (S/P/Bld) [Vol rate/Area] Estimated glomerular filtration rate (GFR) non- Low >=60 mL/min/1.73 m 2 [facility] Hematocrit Auto (Bld) [Volum e fraction]on 04-12-2024 Hematocrit (Bld) [Volume fraction] Hematocrit [Volume Fraction] of Blood by Automated count 42.0-54.0 [facility] Hemoglobin [Mass/volume] in Bloodon 04-12-2024 Hemoglobin (Bld) [Mass/Vol] Hemoglobin [Mass/volume] in Blood 14.0-18.0 [facility] Laboratory - Chemistry and C hemistry - challengeon 04-12-2024 Calcium [Mass/Vol] 9.5 mg/dL 8.5-10.1 [facility] Chloride [Moles/Vol] 105 mmol/L 98-107 [facility] CO2 [Moles/Vol] 25.7 mmol/L 21.0-32.0 [facility] Creatinine [Mass/Vol] 1.60 mg/dL High 0.70-1.30 [facility] GFR/1.73 sq M.predicted MDRD (S/P/Bld) [Vol rate/Area] 50 mL/min/{1.73_m2} Low >=60 mL/min/1.73 m 2 [facility] Glucose [Mass/Vol] 117 mg/dL High 74-106 [facility] Potassium [Moles/Vol] 4.4 mmol/L 3.5-5.1 [facility] Sodium [Moles/Vol] 142 mmol/L 136-145 [facility] Urea nitrogen [Mass/Vol] 20.0 mg/dL High 7.0-18.0 [facility] Urea nitrogen/Creatinin e [Mass ratio] 12.5 mg/mg [facility] Laboratory - Hematology and Cell countson 04-12-2024 Immature granulocytes/100 WBC (Bld) 0.2 % 0.0-0.5 [facility] Leukocytes [#/volume] correc analia for nucleated erythrocytes in Blood by Automated counon 04-12-2024 WBC corrected for nucl RBC Auto (Bld) [#/Vol] Leukocytes [#/volume] corrected for nucleated erythrocytes in Blood by Automated coun 4.0-11.0 [facility] Lymphocytes Auto (Bld) [#/Vo l]on 04-12-2024 Lymphocytes (Bld) [#/Vol] Lymphocytes [#/volume] in Blood by Automated count 1.2-3.8 [facility] Lymphocytes/100 WBC Auto (Bl d)on 04-12-2024 Lymphocytes/100 WBC (Bld) Lymphocytes/100 leukocytes in Blood by Automated count 20.5-60.0 [facility] MAGNESIUMon 04-12-2024 Magnesium [Mass/Vol] 2.2 mg/dL Normal 1.9-2.7 [facility] Comment on above: Performed By: #### L [id number] #### [facility] ([facility]) [address] [place] [address] MCH Auto (RBC) [Entitic mass ]on 04-12-2024 MCH (RBC) [Entitic mass] MCH [Entitic mass] by Automated count High 25.9-34.0 [facility] MCHC Auto (RBC) [Mass/Vol]on 04-12-2024 MCHC (RBC) [Mass/Vol] MCHC [Mass/volume] by Automated count 29.9-35.2 [facility] MCV Auto (RBC) [Entitic vol] on 04-12-2024 MCV (RBC) [Entitic vol] MCV [Entitic volume] by Automated count High 80.0-94.0 [facility] Monocytes Auto (Bld) [#/Vol] on 04-12-2024 Monocytes (Bld) [#/Vol] Automated blood monocyte count 0.3-0.8 [facility] Monocytes/100 WBC Auto (Bld) on 04-12-2024 Monocytes/100 WBC (Bld) Automated monocyte % High 1.7-12.0 [facility] Neutrophils Auto (Bld) [#/Vo l]on 04-12-2024 Neutrophils (Bld) [#/Vol] Neutrophils [#/volume] in Blood by Automated count 1.4-6.5 [facility] Neutrophils/100 WBC Auto (Bl d)on 04-12-2024 Neutrophils/100 WBC (Bld) Automated neutrophil % 43.0-75.0 [facility] No Panel Informationon 04-12 Troponin I High Sensitivity 152.5 pg/mL Critically high 4.0-76.1 [facility] Comment on above: RESULTS CALLED TO DR Melly GODDARD @BY Sarah Coreas at 1100CUT-OFF POINTS HAVE BEEN ESTABLISHED BASED ON THE FOURTHIVERS DEFINITION OF MYOCARDIAL INFARCTION. THE UPPERREFERENCE LIMIT (URL) OF TROPONIN, DEFINED THE 99THPERCENTILE OF cTnI DISTRIBUTION IN A REFERENCE POPULATION,HAS BEEN CONFIRMED THE DECISION THRESHOLD FOR MIDIAGNOSIS.99TH PERCENTILE = 76.2 PG/MLNOTE: HIGH-SENSITIVITY TROPONIN ASSAY IS NOT INTENDED TO BEUSED IN ISOLATION BUT SHOULD BE INTERPRETED IN CONJUNCTIONWITH OTHER DIAGNOSTIC AND CLINICAL INFORMATION. Eosinophils # (Auto) 0.2 10 3/uL 0.0-0.7 [facility] Immature Granulocyte # (Auto) 0.01 10 3/uL 0.00-0.03 [facility] Platelet mean volume Auto (B ld) [Entitic vol]on 04-12-2024 Platelet mean volume (Bld) [Entitic vol] Platelet mean volume [Entitic volume] in Blood by Automated count Low 9.5-13.5 [facility] Platelets Auto (Bld) [#/Vol] on 04-12-2024 Platelets (Bld) [#/Vol] Platelets [#/volume] in Blood by Automated count 150-450 [facility] RBC Auto (Bld) [#/Vol]on RBC (Bld) [#/Vol] Erythrocytes [#/volu me] in Blood by Automated count Low 4.70-6.10 [facility] Serum or plasma anion gap de terminationon 04-12-2024 Anion gap [Moles/Vol] Serum or plasma anion gap determination [facility] TROPONIN Ion 04-12-2024 Troponin I.cardiac [Mass/Vol] 1.17 ng/mL Critically high 0.00-0.04 [facility] Comment on above: Result Comment: M-FL EVIOUS CRITICAL RESULT Previous result verified on 04/12/2024 1741 on specimen/case [id number] called with component Troponin I for procedure Troponin I with value 1.00 ng/mL. Performed By: #### L [id number] #### [facility] ([facility]ER) [address] [place] [address] Troponin I.cardiac [Mass/Vol] 1.00 ng/mL Critically high 0.00-0.04 [facility] Comment on above: Result Comment: M-TR OPONIN INITIAL CRITICAL HIGH; RESPUN AND RETESTED Performed By: #### L [id number] ####[facility] (BEAKER)[address] [place] [address] ANEAlon 04-01-2024 ANES -------- Attestation signed by Camacho Mohamud MD at 04/01/2024 8:35 AM By using the attestations below, the signing clinician agrees that I have read and verify that the documentation has been personally reviewed by me and ensure that the documentation accurately reflects the encounter. GC: I personally saw this patient on the day of the encounter, performed the chan portion(s) of the service and participated in the management and confirm the resident's documentation. Please note there may be an additional personal documentation from me. Patient: Annelise Olson Procedure Information Date/Time: 04/01/24 0830 Procedures: Loop recorder removal - PC APPROVED Loop insertion Location: [facility] SHEET TESTER HOLDING ROOM / [facility] (Cath) Providers: Camacho Mohamud MD Clinical information reviewed: Allergies Meds Physical Exam Airway Mallampati: II TM distance: >3 FB Neck ROM: full Cardiovascular Rhythm: regular Rate: normal (-) murmur Dental Pulmonary (-) decreased breath sounds, wheezes, rales Abdominal Abdomen: soft Bowel sounds: normal Anesthesia Plan ASA 3 regional Anesthetic plan and risks discussed with patient. Use of blood products discussed with patient who consented to blood products. Plan discussed with attending and fellow. Additional Equipment Requests [facility] HPon 04-01-2024 [facility] Cardiology Consul t Note Reason for visit: s/p flutter ablation, Medtronic loop monitoring for AF 04/01/24. Pt here for LOOP exlant and re implant 01/14/24 A lot of his AF is [...] palpitations, lightness, dizziness, racing heart Per dr. mohamud HPI: 05/01/22 Pt doing well. No issues [...] bradycardic with symptoms after stopping the beta catracho. urrently he is doing well. He has [...] Past Surgical History: Procedure Laterality Date ATRIAL ABLA (more content not included)... [facility] NURSNOTEon 04-01-2024 NURSNOTE RN educated pt on d/ c instructions. This included: site care, limited physical activity, resume normal diet, future appointments, medications, and moderate sedation instructions. RN educated pt on when to notify physician and when to go to the hospital. RN encouraged pt to voice any questions or concerns, and answered any questions or concerns if pt verbalized. Pt was wheeled off of unit with all of belongings. [facility] Orders Onlyon 03-23-2024 Orders Only [id number] Annelise Olson 1935 M Date Provider Department Center 03/23/2024 BEAU PORTILLO CARD [facility] Family History Problem Relation Age of Onset Coronary artery disease Mother Coronary artery disease Father Family Status - Relation Status Age at Mother Father [facility] 37on 03-12-2024 37 Spoke with patient latrice nd his . They are in [facility] for a few days. She will call us back later and let us know which pharmacy to call Xarelto 20mg in for. I told her we could call that pharmacy with a free 30 day voucher card so it wouldn't cost them anything out of pocket. She verbalized understanding and will call us back soon. [facility] 37 I attempted to call patient but he did not answer. Please let patient know that I spoke with Dr. Mhoamud. Would like for him to take a blood thinner for 4 weeks since he had a flutter ablation. Can do Eliquis 5mg BID or Xarelto 20mg with dinner. Please also schedule him for a loop recorder interrogation so we can determine if the batter is at EOL. If it is, would like to replace. Thanks! Francisca [facility] Orders Onlyon 03-12-2024 Orders Only [id number] KerajasAnnelise Mercer 1935 [facility] Provider Department Center 03/12/2024 BEAU PORTILLO [facility] Family History Problem Relation Age of Onset Coronary artery disease Mother Coronary artery disease Father Family Status - Relation Status Age at Mother Father [facility] Telephoneon 03-12-2024 Telephone [id number] Annelise Olson [place] 1935 [facility] Provider Department [place] 03/12/2024 RIVKA KNOWLES [facility] Family History Problem Relation Age of Onset Coronary artery disease Mother Coronary artery disease Father Family Status - Relation Status Age at Mother Father [facility] Follow-Upon 03-10-2024 Follow-Up [id number] KerajasAnnelise Mercer 1935 [facility] Provider Department [place] 03/10/2024 RIVKA KNOWLES [facility] Family History Problem Relation Age of Onset Coronary artery disease Mother Coronary artery disease Father Family Status - Relation Status Age at Mother Father Level of Service:41969 [place] OFFICE/OUTPATIENT ESTABLISHED MOD MDM 30 MIN Reason for Visit and Comments: Atrial Flutter [101] [facility] HPon 03-10-2024 Cardiovascular Medic [facility] SUBJECTIVE Chief Complaint Patient presents with Atrial Flutter Annelise Olson is a 88 y.o. male here for follow-up after his recent EP study/a.flutter ablation. HPI PMHx: CAD s/p CABG 1994, a.flutter s/p ablation, LOOP monitor, HFrEF, ICM, AV regurg He has been feeling well since his recent EPS/a.flutter ablation. He had some bruising in his groin access site that is resolving. No swelling/numbness/tingling. Denies c/o CP, dyspnea, orthopnea, PND, LE edema, dizziness/LH, palpitations, syncope. 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 Gastroesophageal reflux disease with esophagitis Hematuria History of duodenal ulcer Increased frequency of urination intermediate current use of anticoagulant therapy Osteoarthritis of [...] loss) Stage 3a chronic kidney disease (CMS/HCC) Atrial tachycardia (CMS/HCC) Medicare annual wellness visit, subsequent Subclinical hypothyroidism Past Medical History: Diagnosis Date Abnormal ECG Arrhythmia Atrial flutter (CMS/HCC) Coronary artery disease Heart valve disease Hyperlipidemia Hypertension Ischemic cardiomyopathy Family History Problem Relation Name Age of Onset Coronary artery disease Mother Coronary artery disease Father Social History Tobacco Use Smoking status: Never Passive exposure: Never Smokeless tobacco: Never Substance Use Topics Alcohol use: Never Drug use: Never Allergies Allergen Reactions Naproxen Unknown ROS Musculoskeletal: Positive for myalgias. Psychiatric/Behavioral: Positive for memory loss. All other systems reviewed and are negative. OBJECTIVE Visit Vitals BP 110/52 (BP Location: Left arm, Patient Position: Sitting) Pulse 57 Ht 1.676 m (5' 6 ) Wt 67.1 kg (148 lb) SpO2 97% BMI 23.89 kg/m??? Smoking Status Never BSA 1.77 m??? Medications: Current Outpatient Medications: aspirin 81 mg chewable tablet, in the morning., Disp: , Rfl: atorvastatin (Lipitor) 40 mg tablet, Take 1 tablet every day by oral route., Disp: , Rfl: cetirizine (ZyrTEC) 10 mg capsule, if needed., Disp: , Rfl: dapagliflozin propanediol (Farxiga) 10 mg, Take 1 tablet (10 mg) by mouth in the morning., Disp: 90 tablet, Rfl: 3 furosemide (Lasix) 40 mg tablet, TAKE 1 TABLET BY MOUTH IN THE MORNING, Disp: 90 tablet, Rfl: 3 ginkgo biloba 40 mg tablet, Take 1 tablet by mouth 1 (one) time each day., Disp: , Rfl: isosorbide mononitrate ER (Imdur) 30 mg 24 hr tablet, Take 1 tablet (30 mg) by mouth in the morning. Do not crush or chew., Disp: 30 tablet, Rfl: 0 fqwop-gi-1-ltz-zew-myujxuo-a st (krill oil) 1,366-181-75-80 mg capsule, Take 90 mg by mouth in the morning., Disp: , Rfl: lisinopril 10 mg tablet, Take 10 mg by mouth in the morning., Disp: , Rfl: metoprolol succinate XL (Toprol-XL) 25 mg 24 hr tablet, Take 0.5 tablets (12.5 mg) by mouth in the morning. Do not crush or chew., Disp: 45 tablet, Rfl: 3 niacin, inositol niacinate, 500 mg capsule, Take 1 capsule every day by oral route., Disp: , Rfl: nitroglycerin (Nitrostat) 0.4 mg SL tablet, place 1 tablet under the tongue if needed every 5 minutes for chest pain for 3 doses IF NO RELIEF AFTER FIRST DOSE CALL PRESCRIBER OR 911., Disp: , Rfl: omeprazole (PriLOSEC) [address] capsule, Take 1 capsule every day by oral route., Disp: , Rfl: traMADol (Ultram) 50 mg tablet, , Disp: , Rfl: finasteride (Proscar) 5 mg tablet, Take 1 tablet every day by oral route., Disp: , Rfl: Physical Exam Constitutional: Appearance: Normal appearance. He is normal weight. HENT: Head: Normocephalic and atraumatic. Right Ear: External ear normal. Left Ear: External ear normal. Eyes: Extraocular Movements: Extraocular movements intact. Pupils: Pupils are equal, round, and reactive to light. Neck: Vascular: No carotid bruit. Cardiovascular: Rate and Rhythm: Normal rate and regular rhythm. Pulses: Normal pulses. Heart sounds: Normal heart sounds. Comments: Premature beats noted Pulmonary: Effort: Pulmonary effort is normal. Breath sounds: Normal breath sounds. Abdominal: General: Bowel sounds are normal. Palpations: Abdomen is soft. Musculoskeletal: General: Nor (more content not included)... [facility] HPon 02-26-2024 [facility] Cardiology Consul t Note Reason for visit: s/p flutter ablation, Medtronic loop monitoring for AF 02/26/24 Pt here for svt abltion. 01/14/24 A lot of his AF is [...] palpitations, lightness, dizziness, racing heart Per dr. mohamud HPI: 05/01/22 Pt doing well. No issues [...] bradycardic with symptoms after stopping the beta catracho. urrently he is doing well. He has [...] History: Procedure Laterality Date ATRIAL ABLATION SURGERY 02 (more content not included)... [facility] NURSNOTEon 02-26-2024 NURSNOTE RN educated pt on d/ c instructions. This included: site care, limited physical activity, resume normal diet, future appointments, medications, and moderate sedation instructions. RN educated pt on when to notify physician and when to go to the hospital. RN encouraged pt to voice any questions or concerns, and answered any questions or concerns if pt verbalized. Pt was wheeled off of unit with all of belongings. [facility] Laboratory - Chemistry and C hemistry - challengeon 02-21-2024 Cobalamin (Vitamin B12) [Mass/Vol] 293 pg/mL [phone] [facility] Comment on above: Performed at: [address] [id number] Director: Peewee Villalobos PhD, Phone: [phone] Free T4 [Mass/Vol] 0.83 ng/dL 0.76-1.46 [facility] TSH Qn 4.326 m[IU]/L High 0.358-3.740 [facility] No Panel Informationon 02-20 Folate 13.00 ng/mL 8.60-58.90 [facility] Serum or plasma methylmalona te measurement (moles/volume)on 02-21-2024 Methylmalonate [Moles/Vol] Serum or plasma methylmalonate measurement (moles/volume) 0-378 [facility] Comment on above: This test was develo ped and its performance characteristicsdetermined by [employer]. It has not been cleared orapproved by the Food and Drug Administration.Performed at: [facility] Lab[address] [id number] Director: Nury Christianson MD, Phone: [phone] Basophils Auto (Bld) [#/Vol] on 02-07-2024 Basophils (Bld) [#/Vol] 0.0 10 3/uL 0.0-0.1 [facility] Basophils/100 WBC Auto (Bld) on 02-07-2024 Basophils/100 WBC (Bld) 0.4 % 0.2-2.0 [facility] Eosinophils/100 WBC Auto (Bl d)on 02-07-2024 Eosinophils/100 WBC (Bld) 4.1 % 0.9-7.0 [facility] Erythrocyte distribution wid th Auto (RBC) [Ratio]on 02-07-2024 Erythrocyte distribution width (RBC) [Ratio] 12.2 % 11.0-15.0 [facility] Estimated glomerular filtrat ion rate (GFR) non- Americanon 02-07-2024 GFR/1.73 sq M.predicted among non-blacks MDRD (S/P/Bld) [Vol rate/Area] mL/min/{1.73_m2} >=60 mL/min/1.73 m 2 [facility] Hematocrit Auto (Bld) [Volum e fraction]on 02-07-2024 Hematocrit (Bld) [Volume fraction] 44.4 % 42.0-54.0 [facility] Hemoglobin [Mass/volume] in Bloodon 02-07-2024 Hemoglobin (Bld) [Mass/Vol] 14.9 g/dL 14.0-18.0 [facility] Laboratory - Chemistry and C hemistry - challengeon 02-07-2024 Calcium [Mass/Vol] 8.8 mg/dL 8.5-10.1 [facility] Chloride [Moles/Vol] 105 mmol/L 98-107 [facility] CO2 [Moles/Vol] 26.9 mmol/L 21.0-32.0 [facility] Creatinine [Mass/Vol] 1.11 mg/dL 0.70-1.30 [facility] GFR/1.73 sq M.predicted MDRD (S/P/Bld) [Vol rate/Area] mL/min/{1.73_m2} >=60 mL/min/1.73 m 2 [facility] Glucose [Mass/Vol] 96 mg/dL 74-106 [facility] Potassium [Moles/Vol] 4.2 mmol/L 3.5-5.1 [facility] Sodium [Moles/Vol] 137 mmol/L 136-145 [facility] Urea nitrogen [Mass/Vol] 11.0 mg/dL 7.0-18.0 [facility] Urea nitrogen/Creatinin e [Mass ratio] 9.9 mg/mg [facility] Laboratory - Hematology and Cell countson 02-07-2024 Immature granulocytes/100 WBC (Bld) 0.3 % 0.0-0.5 [facility] Leukocytes [#/volume] correc analia for nucleated erythrocytes in Blood by Automated counon 02-07-2024 WBC corrected for nucl RBC Auto (Bld) [#/Vol] 7.2 10 3/uL 4.0-11.0 [facility] Lymphocytes Auto (Bld) [#/Vo l]on 02-07-2024 Lymphocytes (Bld) [#/Vol] 1.4 10 3/uL 1.2-3.8 [facility] Lymphocytes/100 WBC Auto (Bl d)on 02-07-2024 Lymphocytes/100 WBC (Bld) 19.3 % Low 20.5-60.0 [facility] MCH Auto (RBC) [Entitic mass ]on 02-07-2024 MCH (RBC) [Entitic mass] 34.9 pg High 25.9-34.0 [facility] MCHC Auto (RBC) [Mass/Vol]on 02-07-2024 MCHC (RBC) [Mass/Vol] 33.6 g/dL 29.9-35.2 [facility] MCV Auto (RBC) [Entitic vol] on 02-07-2024 MCV (RBC) [Entitic vol] 104.0 fL High 80.0-94.0 [facility] Monocytes Auto (Bld) [#/Vol] on 02-07-2024 Monocytes (Bld) [#/Vol] 0.8 10 3/uL 0.3-0.8 [facility] Monocytes/100 WBC Auto (Bld) on 02-07-2024 Monocytes/100 WBC (Bld) 10.6 % 1.7-12.0 [facility] Neutrophils Auto (Bld) [#/Vo l]on 02-07-2024 Neutrophils (Bld) [#/Vol] 4.7 10 3/uL 1.4-6.5 [facility] Neutrophils/100 WBC Auto (Bl d)on 02-07-2024 Neutrophils/100 WBC (Bld) 65.3 % 43.0-75.0 [facility] No Panel Informationon 02-06 Eosinophils # (Auto) 0.3 10 3/uL 0.0-0.7 [facility] Immature Granulocyte # (Auto) 0.02 10 3/uL 0.00-0.03 [facility] Platelet mean volume Auto (B ld) [Entitic vol]on 02-07-2024 Platelet mean volume (Bld) [Entitic vol] 8.8 fL Low 9.5-13.5 [facility] Platelets Auto (Bld) [#/Vol] on 02-07-2024 Platelets (Bld) [#/Vol] 146 10 3/uL Low 150-450 [facility] RBC Auto (Bld) [#/Vol]on RBC (Bld) [#/Vol] 4.27 10 6/uL Low 4.70-6.10 [facility] Serum or plasma anion gap de terminationon 02-07-2024 Anion gap [Moles/Vol] 9.3 mmol/L [facility] Orders Onlyon 02-05-2024 Orders Only [id number] Annelise Olson 1935 [facility] Provider Department Center 02/05/2024 LIBAN MOSQUEDA [facility] VASC LAB MI HeartVAS Family History Problem Relation Age of Onset Coronary artery disease Mother Coronary artery disease Father Family Status - Relation Status Age at Mother Father [facility] No Panel Informationon 01-22 Avis Lacy, ARR T 01/23/2024 11:44 AM L Inj/Asp: R knee on 01/23/2024 11:16 AM Indications: pain Details: 22 G needle, lateral approach Medications: 30 mg cross-linked hyaluronate 30 MG/3ML Consent was given by the patient. [facility] XR Knee - right 3 [facility] Result: Multiple weightbearing views (AP, Lateral and sunrise) are reviewed for the permanent PACS record. 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 No fracture, dislocation, tumor or infection seen. Images are reviewed with the patient at length. Critical access hospital Radiology Study observation (narrative) [facility] Office Visiton 01-14-2024 Follow-up visit [id number] Annelise Olson 1935 [facility] Provider Department [place] 01/14/2024 CAMACHO CARTWRIGHT AL[facility] Family History Problem Relation Age of Onset Coronary artery disease Mother Coronary artery disease Father Family Status - Relation Status Age at Mother Father Level of Service:41299 [place] OFFICE/OUTPATIENT ESTABLISHED LOW MDM 20 MIN [facility] Office Visiton 12-04-2023 Follow-up visit [id number] Annelise Olson 1935 [facility] Provider Department Center 12/04/2023 ALEX VALENCIA ALBERT [facility] Family History Problem Relation Age of Onset Coronary artery disease Mother Coronary artery disease Father Family Status - Relation Status Age at Mother Father Level of Service:67984 [place] OFFICE/OUTPATIENT ESTABLISHED MOD MDM 30 MIN [facility] No Panel Informationon 09-01 Folate 11.40 ng/mL 8.60-58.90 [facility] Screenson 08-22-2023 Screens [id number]#[id number] [facility] Screens [id number]#[id number] [facility] Patient Educationon 08-21-19 Patient Education Urology [...] stimulation). ? For women, using a medical transcription radiology to prevent urine leaks. This is a [...] urine. ? (more content not included)... [facility] Urology Office/Clinic Noteon 08-21-2023 Urology Office/Clinic [...] E&M of Est. Patient Low 20-29 Min 28347 2. Urge incontinence (N39.41: Urge incontinence) UA completed in office today shows no microhematuria or signs of infection. PRW prescribed myrbetriq last year. pt filled 1 mo but it didn't help and was very costly. pt not interested in trying any other meds for these sx. Ordered: Complex E&M Add on G2211 E&M of Est. Patient Low 20-29 Min 70954 3. 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 reports steady stream. no complaints at this time. Ordered: Complex E&M Add on G2211 E&M of Est. Patient Low 20-29 Min 49235 pt pleased w urinary status at this time. Offered continued scheduled follow up with our clinic vs following up PRN. Pt prefers the latter. Follow-up With When Contact Information AZRA SPEARS, HEATHER Dixon, KAUSHIK Only if needed [address] [place] [address] [facility] (1) Additional Instructions: Conner SÁNCHEZ MD, KAUSHIK [facility] [address], [place] [address] [phone] Additional Instructions: Patient Education Urinary Incontinence Problem [...] SARS-CoV-2 (COVID-19) Ad26 vaccine 05/12/2020 Recorded [facility] Comment on above: Result Comment: Elec tronically Signed By: AZRA SPEARS, HEATHER Dixon\.br\Date and Time Signed: 08/21/23 13:10 EDT Office Visiton 07-12-2023 Follow-up visit [id number] Annelise Olson 1935 M Date Provider Department Center 07/12/2023 Drew-AVIS GREY [facility] Family History Problem Relation Age of Onset Coronary artery disease Mother Coronary artery disease Father Family Status - Relation Status Age at Mother Father Level of Service:92468 [place] OFFICE/OUTPATIENT ESTABLISHED MOD MDM 30 MIN Reason for Visit and Comments: Follow-up [215133] - Patient here for hospital follow up [facility] Basophils Auto (Bld) [#/Vol] on 07-10-2023 Basophils (Bld) [#/Vol] 0.0 10 3/uL 0.0-0.1 [facility] Basophils/100 WBC Auto (Bld) on 07-10-2023 Basophils/100 WBC (Bld) 0.5 % 0.2-2.0 [facility] Eosinophils/100 WBC Auto (Bl d)on 07-10-2023 Eosinophils/100 WBC (Bld) 3.8 % 0.9-7.0 [facility] Erythrocyte distribution wid th Auto (RBC) [Ratio]on 07-10-2023 Erythrocyte distribution width (RBC) [Ratio] 12.5 % 11.0-15.0 [facility] Estimated glomerular filtrat ion rate (GFR) non- Americanon 07-10-2023 GFR/1.73 sq M.predicted among non-blacks MDRD (S/P/Bld) [Vol rate/Area] 52 mL/min/{1.73_m2} >=60 [facility] Globulin Calc (S) [Mass/Vol] on 07-10-2023 Globulin (S) [Mass/Vol] 3.9 g/dL [facility] Hematocrit Auto (Bld) [Volum e fraction]on 07-10-2023 Hematocrit (Bld) [Volume fraction] 45.9 % 42.0-54.0 [facility] Hemoglobin [Mass/volume] in Bloodon 07-10-2023 Hemoglobin (Bld) [Mass/Vol] 15.3 g/dL 14.0-18.0 [facility] Laboratory - Chemistry and C hemistry - challengeon 07-10-2023 Albumin [Mass/Vol] 3.4 g/dL 3.4-5.0 [facility] ALP [Catalytic activity/Vol] 91 U/L 46-116 [facility] ALT [Catalytic activity/Vol] 15 U/L 16-63 [facility] AST [Catalytic activity/Vol] 25 U/L 15-37 [facility] Bilirubin [Mass/Vol] 1.1 mg/dL 0.2-1.0 [facility] Calcium [Mass/Vol] 8.8 mg/dL 8.5-10.1 [facility] Chloride [Moles/Vol] 104 mmol/L 98-107 [facility] CO2 [Moles/Vol] 25.5 mmol/L 21.0-32.0 [facility] Creatinine [Mass/Vol] 1.31 mg/dL 0.70-1.30 [facility] GFR/1.73 sq M.predicted MDRD (S/P/Bld) [Vol rate/Area] mL/min/{1.73_m2} >=60 [facility] Glucose [Mass/Vol] 164 mg/dL 74-106 [facility] Natriuretic peptide B (Bld) [Mass/Vol] 436.0 pg/mL <=1800.0 [facility] Potassium [Moles/Vol] 3.8 mmol/L 3.5-5.1 [facility] Protein [Mass/Vol] 7.3 g/dL 6.4-8.2 [facility] Sodium [Moles/Vol] 138 mmol/L 136-145 [facility] Urea nitrogen [Mass/Vol] 18.0 mg/dL 7.0-18.0 [facility] Urea nitrogen/Creatinin e [Mass ratio] 13.7 mg/mg [facility] Laboratory - Hematology and Cell countson 07-10-2023 Immature granulocytes/100 WBC (Bld) 0.3 % 0.0-0.5 [facility] Leukocytes [#/volume] correc analia for nucleated erythrocytes in Blood by Automated counon 07-10-2023 WBC corrected for nucl RBC Auto (Bld) [#/Vol] 6.3 10 3/uL 4.0-11.0 [facility] Lymphocytes Auto (Bld) [#/Vo l]on 07-10-2023 Lymphocytes (Bld) [#/Vol] 1.4 10 3/uL 1.2-3.8 [facility] Lymphocytes/100 WBC Auto (Bl d)on 07-10-2023 Lymphocytes/100 WBC (Bld) 22.1 % 20.5-60.0 [facility] MCH Auto (RBC) [Entitic mass ]on 07-10-2023 MCH (RBC) [Entitic mass] 34.5 pg 25.9-34.0 [facility] MCHC Auto (RBC) [Mass/Vol]on 07-10-2023 MCHC (RBC) [Mass/Vol] 33.3 g/dL 29.9-35.2 [facility] MCV Auto (RBC) [Entitic vol] on 07-10-2023 MCV (RBC) [Entitic vol] 103.6 fL 80.0-94.0 [facility] Monocytes Auto (Bld) [#/Vol] on 07-10-2023 Monocytes (Bld) [#/Vol] 0.5 10 3/uL 0.3-0.8 [facility] Monocytes/100 WBC Auto (Bld) on 07-10-2023 Monocytes/100 WBC (Bld) 8.1 % 1.7-12.0 [facility] Neutrophils Auto (Bld) [#/Vo l]on 07-10-2023 Neutrophils (Bld) [#/Vol] 4.1 10 3/uL 1.4-6.5 [facility] Neutrophils/100 WBC Auto (Bl d)on 07-10-2023 Neutrophils/100 WBC (Bld) 65.2 % 43.0-75.0 [facility] No Panel Informationon 07-09 Troponin I High Sensitivity 36.4 pg/mL 4.0-76.1 [facility] Comment on above: CUT-OFF POINTS HAVE [...] Eosinophils # (Auto) 0.2 10 3/uL 0.0-0.7 [facility] Immature Granulocyte # (Auto) 0.02 10 3/uL 0.00-0.03 [facility] Platelet mean volume Auto (B ld) [Entitic vol]on 07-10-2023 Platelet mean volume (Bld) [Entitic vol] 9.8 fL 9.5-13.5 [facility] Platelets Auto (Bld) [#/Vol] on 07-10-2023 Platelets (Bld) [#/Vol] 157 10 3/uL 150-450 [facility] RBC Auto (Bld) [#/Vol]on RBC (Bld) [#/Vol] 4.43 10 6/uL 4.70-6.10 [facility] Serum or plasma albumin/glob ulin mass ratioon 07-10-2023 Albumin/Globulin [Mass ratio] 0.9 {ratio} [facility] Serum or plasma anion gap de terminationon 07-10-2023 Anion gap [Moles/Vol] 12.3 mmol/L [facility] CBC AUTO DIFFon 08-14-2022 BASO # 0.0 103/ul Normal 0.0-0.1 [facility] Comment on above: Performed By: #### A LT, LIPID, BMP #### [facility] [address] [place] [address] Dr. Kaleb Desir Basophils/100 WBC (Bld) 0.5 % Normal 0.2-2.0 [facility] Comment on above: Performed By: #### A LT, LIPID, BMP #### [facility] [address] [place] [address] Dr. Kaleb Desir EO # 0.1 103/ul Normal 0.0-0.7 [facility] Comment on above: Performed By: #### A LT, LIPID, BMP #### [facility] [address] [place] [address] Dr. Kaleb Desir Eosinophils/100 WBC (Bld) 1.2 % Normal 0.9-7.0 [facility] Comment on above: Performed By: #### A LT, LIPID, BMP #### [facility] [address] [place] [address] Dr. Kaleb Desir Erythrocyte distribution width (RBC) [Ratio] 12.9 % Normal 11.0-15.0 [facility] Comment on above: Performed By: #### A LT, LIPID, BMP #### [facility] [address] [place] [address] Dr. Kaleb Desir Hematocrit (Bld) [Volume fraction] 38.6 % Critically low 42.0-54.0 [facility] Comment on above: Performed By: #### A LT, LIPID, BMP #### [facility] [address] [place] [address] Dr. Kaleb Desir Hemoglobin (Bld) [Mass/Vol] 13.1 g/dL Critically low 14.0-18.0 [facility] Comment on above: Performed By: #### A LT, LIPID, BMP #### [facility] [address] [place] [address] Dr. Kaleb Desir IG # 0.03 10e3/ul Normal 0.00-0.03 [facility] Comment on above: Performed By: #### A LT, LIPID, BMP #### [facility] [address] [place] [address] Dr. Kaleb Desir IG % 0.3 % Normal 0.0-0.5 [facility] Comment on above: Performed By: #### A LT, LIPID, BMP #### [facility] [address] [place] [address] Dr. Kaleb Desir LYMPH # 0.9 103/ul Critically low 1.2-3.8 [facility] Comment on above: Performed By: #### A LT, LIPID, BMP #### [facility] [address] [place] [address] Dr. Kaleb Desir Lymphocytes/100 WBC (Bld) 10.3 % Critically low 20.5-60.0 [facility] Comment on above: Performed By: #### A LT, LIPID, BMP #### [facility] [address] [place] [address] Dr. Kaleb Desir MANUAL DIFF REQ NO Normal [facility] Comment on above: Performed By: #### A LT, LIPID, BMP #### [facility] [address] [place] [address] Dr. Kaleb Desir MCH (RBC) [Entitic mass] 34.0 pg Normal 25.9-34.0 [facility] Comment on above: Performed By: #### A LT, LIPID, BMP #### [facility] [address] [place] [address] Dr. Kaleb Desir MCHC (RBC) [Mass/Vol] 33.9 g/dL Normal 29.9-35.2 [facility] Comment on above: Performed By: #### A LT, LIPID, BMP #### [facility] [address] [address] [address] Kaleb Desir MCV (RBC) [Entitic vol] 100.3 fL Critically high 80.0-94.0 [facility] Comment on above: Performed By: #### A LT, LIPID, BMP #### [facility] [address] [place] [address] Dr. Kaleb Desir MONO # 0.8 103/ul Normal 0.3-0.8 [facility] Comment on above: Performed By: #### A LT, LIPID, BMP #### [facility] [address] [place] [address] Dr. Kaleb Desir Monocytes/100 WBC (Bld) 9.2 % Normal 1.7-12.0 [facility] Comment on above: Performed By: #### A LT, LIPID, BMP #### [facility] [address] [place] [address] Dr. Kaleb Desir NEUT # 7.0 103/ul Critically high 1.4-6.5 [facility] Comment on above: Performed By: #### A LT, LIPID, BMP #### [facility] [address] [place] [address] Dr. Kaleb Desir Neutrophils/100 WBC (Bld) 78.5 % Critically high 43.0-75.0 [facility] Comment on above: Performed By: #### A LT, LIPID, BMP #### [facility] [address] [place] [address] Dr. Kaleb Desir Platelet mean volume (Bld) [Entitic vol] 9.0 fL Critically low 9.5-13.5 [facility] Comment on above: Performed By: #### A LT, LIPID, BMP #### [facility] [address] [place] [address] Dr. Kaleb Desir PLT 164 103/ul Normal 150-450 [facility] Comment on above: Performed By: #### A LT, LIPID, BMP #### [facility] [address] [place] [address] Dr. Kaleb Desir RBC 3.85 106/ul Critically low 4.70-6.10 [facility] Comment on above: Performed By: #### A LT, LIPID, BMP #### [facility] [address] [place], [place] [address] Dr. Kaleb Desir WBC 8.9 103/ul Normal 4.0-11.0 [facility] Comment on above: Performed By: #### A LT, LIPID, BMP #### [facility] [address] [place], [place] [address] ABD/PELVIS WO CONon [...] Colt CALABRESE Date: 2022-08-14 03:24 Normal [facility] ER URINE PROFILEon 3 Bilirubin Ql (U) Negative Normal NEGATIVE [facility] Comment on above: Performed By: #### A LT, LIPID, BMP #### [facility] [address] [address] [address] Kaleb Desir Clarity (U) CLEAR Normal CLEAR [facility] Comment on above: Performed By: #### A LT, LIPID, BMP #### [facility] [address] [address] [address] Kaleb Desir Color (U) YELLOW Normal YELLOW [facility] Comment on above: Performed By: #### A LT, LIPID, BMP #### [facility] [address] [place] [address] Dr. Kaleb Desir ERUAHD A micrscopic examina tion will be performed if indicated. Normal [facility] Comment on above: Performed By: #### A LT, LIPID, BMP #### [facility] [address] [place] [address] Dr. Kaleb Desir Glucose Ql (U) Negative Normal NEGATIVE [facility] Comment on above: Performed By: #### A LT, LIPID, BMP #### [facility] [address] [place] [address] Dr. Kaleb Desir Hemoglobin Ql (U) TRACE-INTACT Abnormal NEGATIVE [facility] Comment on above: Performed By: #### A LT, LIPID, BMP #### [facility] [address] [place] [address] Dr. Kaleb Desir Ketones Ql (U) TRACE Abnormal NEGATIVE [facility] Comment on above: Performed By: #### A LT, LIPID, BMP #### [facility] [address] [place] [address] Dr. Kaleb Desir LEUKOCYTES Negative Normal NEGATIVE [facility] Comment on above: Performed By: #### A LT, LIPID, BMP #### [facility] [address] [place] [address] Dr. Kaleb Desir Nitrite Ql (U) Negative Normal NEGATIVE [facility] Comment on above: Performed By: #### A LT, LIPID, BMP #### [facility] [address] [place] [address] Dr. Kaleb Desir pH (U) 5.5 [pH] Normal 5-9 [facility] Comment on above: Performed By: #### A LT, LIPID, BMP #### [facility] [address] [place] [address] Dr. Kaleb Desir SPEC GRAVITY >=1.030 Abnormal 1.005-<=1.0 25 [facility] Comment on above: Performed By: #### A LT, LIPID, BMP #### [facility] [address] [place] [address] Dr. Kaleb Desir UA PROTEIN Negative Normal NEGATIVE/ TRACE [facility] Comment on above: Performed By: #### A LT, LIPID, BMP #### [facility] [address] [place] [address] Dr. Kaleb Desir UR MICRO IND NOT INDICATED Normal [facility] Comment on above: Performed By: #### A LT, LIPID, BMP #### [facility] [address] [place] [address] Dr. Kaleb Desir Urobilinogen Qn (U) 0.2 {Silver'U}/dL Normal 0.2 - 1.0 [facility] Comment on above: Performed By: #### A LT, LIPID, BMP #### [facility] [address] [place] [address] Dr. Kaleb Desir LIPASEon 08-14-2022 Lipase [Catalytic activity/Vol] 91.0 U/L Normal 73.0-393.0 [facility] Comment on above: Performed By: #### C MP, LIPA #### [facility] [address] [place] [address] Dr. Kaleb Desir PROF 14(COMP METB)on 023 Albumin [Mass/Vol] 3.2 g/dL Critically low 3.4-5.0 [facility] [place] Comment on above: Performed By: #### A LT, LIPID, BMP #### [facility] [address] [address] [address] Kaleb Desir Albumin/Globulin [Mass ratio] 1.0 {ratio} Normal [facility] Comment on above: Performed By: #### A LT, LIPID, BMP #### [facility] [address] [address] [address] Kaleb Desir ALP [Catalytic activity/Vol] 78 U/L Normal 46-116 [facility] Comment on above: Performed By: #### A LT, LIPID, BMP #### [facility] [address] [address] [address] Kaleb Desir ALT [Catalytic activity/Vol] 20 U/L Normal 16-63 [facility] Comment on above: Performed By: #### A LT, LIPID, BMP #### [facility] [address] [address] [address] Kaleb Desir Anion gap [Moles/Vol] 12.6 mmol/L Normal [facility] Comment on above: Performed By: #### A LT, LIPID, BMP #### [facility] [address] [address] [address] Kaleb Desir AST [Catalytic activity/Vol] 21 U/L Normal 15-37 [facility] Comment on above: Performed By: #### A LT, LIPID, BMP #### [facility] [address] [address] [address] Kaleb Desir Bilirubin [Mass/Vol] 0.8 mg/dL Normal 0.2-1.0 [facility] Comment on above: Performed By: #### A LT, LIPID, BMP #### [facility] [address] [address] [address] Kaleb Desir Calcium [Mass/Vol] 8.5 mg/dL Normal 8.5-10.1 [facility] Comment on above: Performed By: #### A LT, LIPID, BMP #### [facility] [address] [address] [address] Kaleb Desir Chloride [Moles/Vol] 105 mmol/L Normal 98-107 [facility] Comment on above: Performed By: #### A LT, LIPID, BMP #### [facility] [address] [address] [address] Kaleb Desir CO2 [Moles/Vol] 24.4 mmol/L Normal 21.0-32.0 [facility] Comment on above: Performed By: #### A LT, LIPID, BMP #### [facility] [address] [address] [address] Kaleb Desir Creatinine [Mass/Vol] 1.13 mg/dL Normal 0.70-1.30 [facility] Comment on above: Performed By: #### A LT, LIPID, BMP #### [facility] [address] [address] [address] Kaleb Desir EGFR-AF QATARI >60 Normal >=60 [facility] Comment on above: Performed By: #### A LT, LIPID, BMP #### [facility] [address] [place] [address] Dr. Kaleb Desir EGFR-NON AF QATARI >60 Normal >=60 [facility] Comment on above: Performed By: #### A LT, LIPID, BMP #### [facility] [address] [address] [address] Kaleb Desir Globulin (S) [Mass/Vol] 3.1 g/dL Normal [facility] Comment on above: Performed By: #### A LT, LIPID, BMP #### [facility] [address] [address] [address] Kaleb Desir Glucose [Mass/Vol] 129 mg/dL Critically high 74-106 [facility] Comment on above: Performed By: #### A LT, LIPID, BMP #### [facility] [address] [address] [address] Kaleb Desir Potassium [Moles/Vol] 4.0 mmol/L Normal 3.5-5.1 [facility] Comment on above: Performed By: #### A LT, LIPID, BMP #### [facility] [address] [address] [address] Kaleb Desir Protein [Mass/Vol] 6.3 g/dL Critically low 6.4-8.2 [facility] [place] Comment on above: Performed By: #### A LT, LIPID, BMP #### [facility] [address] [address] [address] Kaleb Desir Sodium [Moles/Vol] 138 mmol/L Normal 136-145 [facility] Comment on above: Performed By: #### A LT, LIPID, BMP #### [facility] [address] [address] [address] Kaleb Desir Urea nitrogen [Mass/Vol] 15.0 mg/dL Normal 7.0-18.0 [facility] Comment on above: Performed By: #### A LT, LIPID, BMP #### [facility] [address] [address] [address] Kaleb Desir Urea nitrogen/Creatinin e [Mass ratio] 13.3 mg/mg Normal [facility] Comment on above: Performed By: #### A LT, LIPID, BMP #### [facility] [address] [place] [address] CSPINE WO CONon [...] KAILASH BARNES Date: 2022-06-11 21:51 Normal [facility] CT HEAD WO CONon 06-11-2022 CT [...] EDUARDO SINGLETON Date: 2022-06-11 21:57 Normal [facility] STOOL CULTUREon 02-20-2022 Campylobacter Culture Final report Normal [facility] Comment on above: Performed By: #### C XSTOOL #### [facility] [address] [place] [address] Dr. Kaleb Desir E coli Shiga Toxin EIA Negative Normal Negative [facility] Comment on above: Performed By: #### C XSTOOL #### [facility] [address] [address] [address] Kaleb Desir Result 1 Comment Normal [facility] Comment on above: Result Comment: No S almonella or Shigella recovered. Performed By: #### C XSTOOL #### [facility] [address] [place] [address] Dr. Kaleb Desir Result Comment: No C ampylobacter species isolated. Salmonella/Shigell a Screen Final report Normal [facility] Comment on above: Performed By: #### C XSTOOL #### [facility] [address] [place] [address] Dr. Kaleb Desir C. DIFF PCRon 02-16-2022 C. DIFFICILE PCR Negative Normal NEGATIVE [facility] Comment on above: Performed By: #### C DIFPOC #### [facility] [address] [place] [address] Dr. Kaleb Desir CBC AUTO DIFFon 02-16-2022 BASO # 0.0 103/ul Normal 0.0-0.1 [facility] Comment on above: Performed By: #### C BC #### [facility] [address] [place] [address] Dr. Kaleb Desir Basophils/100 WBC (Bld) 0.6 % Normal 0.2-2.0 [facility] Comment on above: Performed By: #### C BC #### [facility] [address] [place] [address] Dr. Kaleb Desir EO # 0.3 103/ul Normal 0.0-0.7 [facility] Comment on above: Performed By: #### C BC #### [facility] [address] [place] [address] Dr. Kaleb Desir Eosinophils/100 WBC (Bld) 4.0 % Normal 0.9-7.0 [facility] Comment on above: Performed By: #### C BC #### [facility] [address] [place] [address] Dr. Kaleb Desir Erythrocyte distribution width (RBC) [Ratio] 12.4 % Normal 11.0-15.0 [facility] Comment on above: Performed By: #### C BC #### [facility] [address] [place] [address] Dr. Kaleb Desir Hematocrit (Bld) [Volume fraction] 40.5 % Critically low 42.0-54.0 [facility] Comment on above: Performed By: #### C BC #### [facility] [address] [place] [address] Dr. Kaleb Desir Hemoglobin (Bld) [Mass/Vol] 13.7 g/dL Critically low 14.0-18.0 [facility] Comment on above: Performed By: #### C BC #### [facility] [address] [place] [address] Dr. Kaleb Desir IG # 0.01 10e3/ul Normal 0.00-0.03 [facility] Comment on above: Performed By: #### C BC #### [facility] [address] [place] [address] Dr. Kaleb Desir IG % 0.1 % Normal 0.0-0.5 [facility] Comment on above: Performed By: #### C BC #### [facility] [address] [place] [address] Dr. Kaleb Desir LYMPH # 1.7 103/ul Normal 1.2-3.8 [facility] Comment on above: Performed By: #### C BC #### [facility] [address] [place] [address] Dr. Kaleb Desir Lymphocytes/100 WBC (Bld) 25.5 % Normal 20.5-60.0 [facility] Comment on above: Performed By: #### C BC #### [facility] [address] [place] [address] Dr. Kaleb Desir MANUAL DIFF REQ NO Normal [facility] Comment on above: Performed By: #### C BC #### [facility] [address] [place] [address] Dr. Kaleb Desir MCH (RBC) [Entitic mass] 34.4 pg Critically high 25.9-34.0 [facility] Comment on above: Performed By: #### C BC #### [facility] [address] [address] [address] Kaleb Desir MCHC (RBC) [Mass/Vol] 33.8 g/dL Normal 29.9-35.2 [facility] Comment on above: Performed By: #### C BC #### [facility] [address] [address] [address] Kaleb Desir MCV (RBC) [Entitic vol] 101.8 fL Critically high 80.0-94.0 [facility] Comment on above: Performed By: #### C BC #### [facility] [address] [address] [address] Kaleb Desir MONO # 0.9 103/ul Critically high 0.3-0.8 [facility] Comment on above: Performed By: #### C BC #### [facility] [address] [address] [address] Kaleb Desir Monocytes/100 WBC (Bld) 12.4 % Critically high 1.7-12.0 [facility] Comment on above: Performed By: #### C BC #### [facility] [address] [address] [address] Kaleb Desir NEUT # 3.9 103/ul Normal 1.4-6.5 [facility] Comment on above: Performed By: #### C BC #### [facility] [address] [address] [address] Kaleb Desir Neutrophils/100 WBC (Bld) 57.4 % Normal 43.0-75.0 [facility] Comment on above: Performed By: #### C BC #### [facility] [address] [address] [address] Kaleb Desir Platelet mean volume (Bld) [Entitic vol] 9.0 fL Critically low 9.5-13.5 [facility] Comment on above: Performed By: #### C BC #### [facility] [address] [address] [address] Kaleb Desir PLT 181 103/ul Normal 150-450 [facility] Comment on above: Performed By: #### C BC #### [facility] [address] [address] [address] Kaleb Desir RBC 3.98 106/ul Critically low 4.70-6.10 [facility] Comment on above: Performed By: #### C BC #### [facility] [address] [address] [address] Kaleb Desir WBC 6.8 103/ul Normal 4.0-11.0 [facility] Comment on above: Performed By: #### C BC #### [facility] [address] [address] [address] Kaleb Desir PROF CHEM 8 (BAS METB)on Anion gap [Moles/Vol] 11.0 mmol/L Normal [facility] Comment on above: Performed By: #### A LT, LIPID, BMP #### [facility] [address] [place] [address] Dr. Kaleb Desir Calcium [Mass/Vol] 8.9 mg/dL Normal 8.5-10.1 [facility] Comment on above: Performed By: #### A LT, LIPID, BMP #### [facility] [address] [address] [address] Kaleb Desir Chloride [Moles/Vol] 105 mmol/L Normal 98-107 [facility] Comment on above: Performed By: #### A LT, LIPID, BMP #### [facility] [address] [address] [address] Kaleb Desir CO2 [Moles/Vol] 26.6 mmol/L Normal 21.0-32.0 [facility] Comment on above: Performed By: #### A LT, LIPID, BMP #### [facility] [address] [address] [address] Kaleb Desir Creatinine [Mass/Vol] 1.02 mg/dL Normal 0.70-1.30 [facility] Comment on above: Performed By: #### A LT, LIPID, BMP #### [facility] [address] [address] [address] Kaleb Desir EGFR-AF QATARI >60 Normal >=60 [facility] Comment on above: Performed By: #### A LT, LIPID, BMP #### [facility] [address] [place] [address] Dr. Kaleb Desir EGFR-NON AF QATARI >60 Normal >=60 [facility] Comment on above: Performed By: #### A LT, LIPID, BMP #### [facility] [address] [place] [address] Dr. Kaleb Desir Glucose [Mass/Vol] 102 mg/dL Normal 74-106 [facility] Comment on above: Performed By: #### A LT, LIPID, BMP #### [facility] [address] [place] [address] Dr. Kaleb Desir Potassium [Moles/Vol] 3.6 mmol/L Normal 3.5-5.1 [facility] Comment on above: Performed By: #### A LT, LIPID, BMP #### [facility] [address] [place] [address] Dr. Kaleb Desir Sodium [Moles/Vol] 139 mmol/L Normal 136-145 [facility] Comment on above: Performed By: #### A LT, LIPID, BMP #### [facility] [address] [place] [address] Dr. Kaleb Desir Urea nitrogen [Mass/Vol] 14.0 mg/dL Normal 7.0-18.0 [facility] Comment on above: Performed By: #### A LT, LIPID, BMP #### [facility] [address] [place] [address] Dr. Kaleb Desir Urea nitrogen/Creatinin e [Mass ratio] 13.7 mg/mg Normal [facility] Comment on above: Performed By: #### A LT, LIPID, BMP #### [facility] [address] [place] [address] Dr. Kaleb Desir CBC AUTO DIFFon 01-19-2022 BASO # 0.1 103/ul Normal 0.0-0.1 [facility] Comment on above: Performed By: #### A LT, LIPID, BMP #### [facility] [address] [place] [address] Dr. Kaleb Desir Basophils/100 WBC (Bld) 0.8 % Normal 0.2-2.0 [facility] Comment on above: Performed By: #### A LT, LIPID, BMP #### [facility] [address] [place] [address] Dr. Kaleb Desir EO # 0.4 103/ul Normal 0.0-0.7 [facility] Comment on above: Performed By: #### A LT, LIPID, BMP #### [facility] [address] [place] [address] Dr. Kaleb Desir Eosinophils/100 WBC (Bld) 5.8 % Normal 0.9-7.0 [facility] Comment on above: Performed By: #### A LT, LIPID, BMP #### [facility] [address] [place] [address] Dr. Kaleb Desir Erythrocyte distribution width (RBC) [Ratio] 12.2 % Normal 11.0-15.0 [facility] Comment on above: Performed By: #### A LT, LIPID, BMP #### [facility] [address] [place] [address] Dr. Kaleb Desir Hematocrit (Bld) [Volume fraction] 41.8 % Critically low 42.0-54.0 [facility] Comment on above: Performed By: #### A LT, LIPID, BMP #### [facility] [address] [place] [address] Dr. Kaleb Desir Hemoglobin (Bld) [Mass/Vol] 14.0 g/dL Normal 14.0-18.0 [facility] Comment on above: Performed By: #### A LT, LIPID, BMP #### [facility] [address] [place] [address] Dr. Kaleb Desir IG # 0.01 10e3/ul Normal 0.00-0.03 [facility] Comment on above: Performed By: #### A LT, LIPID, BMP #### [facility] [address] [place] [address] Dr. Kaleb Desir IG % 0.2 % Normal 0.0-0.5 [facility] Comment on above: Performed By: #### A LT, LIPID, BMP #### [facility] [address] [place] [address] Dr. Kaleb Desir LYMPH # 1.9 103/ul Normal 1.2-3.8 [facility] Comment on above: Performed By: #### A LT, LIPID, BMP #### [facility] [address] [place] [address] Dr. Kaleb Desir Lymphocytes/100 WBC (Bld) 31.7 % Normal 20.5-60.0 [facility] Comment on above: Performed By: #### A LT, LIPID, BMP #### [facility] [address] [place] [address] Dr. Kaleb Desir MANUAL DIFF REQ NO Normal [facility] Comment on above: Performed By: #### A LT, LIPID, BMP #### [facility] [address] [place] [address] Dr. Kaleb Desir MCH (RBC) [Entitic mass] 34.1 pg Critically high 25.9-34.0 [facility] Comment on above: Performed By: #### A LT, LIPID, BMP #### [facility] [address] [place] [address] Dr. Kaleb Desir MCHC (RBC) [Mass/Vol] 33.5 g/dL Normal 29.9-35.2 [facility] Comment on above: Performed By: #### A LT, LIPID, BMP #### [facility] [address] [place] [address] Dr. Kaleb Desir MCV (RBC) [Entitic vol] 101.7 fL Critically high 80.0-94.0 [facility] Comment on above: Performed By: #### A LT, LIPID, BMP #### [facility] [address] [place] [address] Dr. Kaleb Desir MONO # 0.8 103/ul Normal 0.3-0.8 [facility] Comment on above: Performed By: #### A LT, LIPID, BMP #### [facility] [address] [place] [address] Dr. Kaleb Desir Monocytes/100 WBC (Bld) 13.8 % Critically high 1.7-12.0 [facility] Comment on above: Performed By: #### A LT, LIPID, BMP #### [facility] [address] [place] [address] Dr. Kaleb Desir NEUT # 2.9 103/ul Normal 1.4-6.5 [facility] Comment on above: Performed By: #### A LT, LIPID, BMP #### [facility] [address] [place] [address] Dr. Kaleb Desir Neutrophils/100 WBC (Bld) 47.7 % Normal 43.0-75.0 [facility] Comment on above: Performed By: #### A LT, LIPID, BMP #### [facility] [address] [place] [address] Dr. Kaleb Desir Platelet mean volume (Bld) [Entitic vol] 8.9 fL Critically low 9.5-13.5 [facility] Comment on above: Performed By: #### A LT, LIPID, BMP #### [facility] [address] [place] [address] Dr. Kaleb Desir PLT 174 103/ul Normal 150-450 [facility] Comment on above: Performed By: #### A LT, LIPID, BMP #### [facility] [address] [place] [address] Dr. Kaleb Desir RBC 4.11 106/ul Critically low 4.70-6.10 [facility] Comment on above: Performed By: #### A LT, LIPID, BMP #### [facility] [address] [place] [address] Dr. Kaleb Desir WBC 6.0 103/ul Normal 4.0-11.0 [facility] Comment on above: Performed By: #### A LT, LIPID, BMP #### [facility] [address] [place] [address] Dr. Kaleb Desir LIPID PROFILEon 01-19-2022 CHOL-HDL RATIO NORM SEE BELOW Normal [facility] Comment on above: Result Comment: 3.3 - 4.4 LOW RISK 4.4 - 7.1 AVERAGE RISK 7.1 - 11.0 MODERATE RISK >11.0 HIGH RISK Performed By: #### A LT, LIPID, BMP #### [facility] [address] [address] [address] Kaleb Desir Cholesterol [Mass/Vol] 137 mg/dL Normal <=200 [facility] Comment on above: Performed By: #### A LT, LIPID, BMP #### [facility] [address] [address] [address] Kaleb Desir Cholesterol in HDL [Mass/Vol] 58 mg/dL Normal 40-60 [facility] Comment on above: Performed By: #### A LT, LIPID, BMP #### [facility] [address] [address] [address] Kaleb Desir Cholesterol in LDL [Mass/Vol] 68.6 mg/dL Normal [facility] Comment on above: Performed By: #### A LT, LIPID, BMP #### [facility] [address] [address] [address] Kaleb Desir Cholesterol.total/ Cholesterol in HDL [Mass ratio] 2.4 {ratio} Normal [facility] Comment on above: Performed By: #### A LT, LIPID, BMP #### [facility] [address] [address] [address] Kaleb Desir HDL NORMAL > or = 60 mg/dl - LO W CARDIOVASCULAR RISK <40 mg/dl - HIGH CARDIOVASCULAR RISK Normal [facility] Comment on above: Performed By: #### A LT, LIPID, BMP #### [facility] [address] [address] [address] Kaleb Desir LDL CALC NORMAL SEE BELOW Normal [facility] Comment on above: Result Comment: <100 mg/dl OPTIMAL 100 - 129 mg/dl NEAR OR ABOVE OPTIMAL 130 - 159 mg/dl BORDERLINE HIGH 160 - 189 mg/dl HIGH >190 mg/dl VERY HIGH Performed By: #### A LT, LIPID, BMP #### [facility] [address] [address] [address] Kaleb Desir Triglyceride [Mass/Vol] 52 mg/dL Normal <=150 [facility] Comment on above: Performed By: #### A LT, LIPID, BMP #### [facility] [address] [place] [address] Dr. Kaleb Desir VLDL CALC 10.4 mg/dL Normal [facility] Comment on above: Performed By: #### A LT, LIPID, BMP #### [facility] [address] [place] [address] Dr. Kaleb Desir PROF CHEM 8 (BAS METB)on Anion gap [Moles/Vol] 13.1 mmol/L Normal [facility] Comment on above: Performed By: #### A LT, LIPID, BMP #### [facility] [address] [place] [address] Dr. Kaleb Desir Calcium [Mass/Vol] 8.9 mg/dL Normal 8.5-10.1 [facility] Comment on above: Performed By: #### A LT, LIPID, BMP #### [facility] [address] [place] [address] Dr. Kaleb Desir Chloride [Moles/Vol] 105 mmol/L Normal 98-107 [facility] Comment on above: Performed By: #### A LT, LIPID, BMP #### [facility] [address] [place] [address] Dr. Kaleb Desir CO2 [Moles/Vol] 25.0 mmol/L Normal 21.0-32.0 [facility] Comment on above: Performed By: #### A LT, LIPID, BMP #### [facility] [address] [place] [address] Dr. Kaleb Desir Creatinine [Mass/Vol] 1.17 mg/dL Normal 0.70-1.30 [facility] Comment on above: Performed By: #### A LT, LIPID, BMP #### [facility] [address] [place] [address] Dr. Kaleb Desir EGFR-AF QATARI >60 Normal >=60 [facility] Comment on above: Performed By: #### A LT, LIPID, BMP #### [facility] [address] [place] [address] Dr. Kaleb Desir EGFR-NON AF QATARI 59 mL/min/1.73m2 Critically low >=60 [facility] Comment on above: Performed By: #### A LT, LIPID, BMP #### [facility] [address] [address] [address] Kaleb Desir Glucose [Mass/Vol] 103 mg/dL Normal 74-106 [facility] Comment on above: Performed By: #### A LT, LIPID, BMP #### [facility] [address] [place] [address] Dr. Kaleb Desir Potassium [Moles/Vol] 4.1 mmol/L Normal 3.5-5.1 [facility] Comment on above: Performed By: #### A LT, LIPID, BMP #### [facility] [address] [place] [address] Dr. Kaleb Desir Sodium [Moles/Vol] 139 mmol/L Normal 136-145 [facility] Comment on above: Performed By: #### A LT, LIPID, BMP #### [facility] [address] [place] [address] Dr. Kaleb Desir Urea nitrogen [Mass/Vol] 18.0 mg/dL Normal 7.0-18.0 [facility] Comment on above: Performed By: #### A LT, LIPID, BMP #### [facility] [address] [place] [address] Dr. Kaleb Desir Urea nitrogen/Creatinin e [Mass ratio] 15.4 mg/mg Normal [facility] Comment on above: Performed By: #### A LT, LIPID, BMP #### [facility] [address] [place] [address] Dr. Kaleb Desir [facility] 01-19-2022 ALT [Catalytic activity/Vol] 21 U/L Normal 16-63 [facility] Comment on above: Performed By: #### A LT, LIPID, BMP #### [facility] [address] [place] [address] Dr. Kaleb Desir Cardiovascular Lab Reporton 06-13-2020 Cardiovascular Lab Report [facility] Patient Name: Annelise Olson MR #: [id number] [place] Physician: Camacho Mohamud MD Service Date: 06/13/2020 Department of Birthdate: 1935 Medicine Room #: CC Division of Cardiology Adult Cardiovascular Services [facility] [address] [place] [address] Cardiovascular Laboratory Report ATRIAL FLUTTER ABLATION AND LOOP IMPLANT PROCEDURE NOTE DATE OF PROCEDURE: 06/13/2020 PERFORMING PHYSICIAN: Dr. Camacho Mohamud INDICATIONS FOR PROCEDURE: 1. History of symptomatic [...] the sternum on the left using the Fariqak tool. The loop recorder was then injected [...] complicati (more content not included)... Normal [facility] Vital Signs Date Time Vital Sign Value Performing Clinician Wenceslao monahan 07-16-2024 09:59-0400 Body height 167.6 cm Hair Foley DPM Work Phone: [facility] 07-16-2024 09:59-0400 Body mass index (BMI) [Ratio] 23.08 kg/m2 Hair Foley DPM Work Phone: [facility] 07-16-2024 09:59-0400 Body weight 64.86 kg Hair Foley DPM Work Phone: [facility] 07-16-2024 09:59-0400 Respiratory rate 18 /min Hair Foley DPM Work Phone: [facility] 06-24-2024 16:04-0500 Body temperature 97 [degF] Mike Vee MD Work Phone: [facility] 06-24-2024 16:04-0500 Body weight 63.6 kg Mike Vee MD Work Phone: [facility] 06-24-2024 16:04-0500 Diastolic blood pressure 72 mm[Hg] Mike Vee MD Work Phone: [facility] 06-24-2024 16:04-0500 Heart rate 63 /min Mike Vee MD Work Phone: [facility] 06-24-2024 16:04-0500 Respiratory rate 18 /min Mike Vee MD Work Phone: [facility] 06-24-2024 16:04-0500 SaO2% (BldA) [Mass fraction] 99 % Mike Vee MD Work Phone: [facility] 06-24-2024 16:04-0500 Systolic blood pressure 113 mm[Hg] Mike Vee MD Work Phone: [facility] 06-18-2024 10:40-0500 Body height 172.72 cm [facility] 06-18-2024 10:40-0500 Body mass index (BMI) [Ratio] 21.5 kg/m2 [facility] 06-18-2024 10:40-0500 Body weight 64.18 kg [facility] 06-18-2024 10:40-0500 Diastolic blood pressure 67 mm[Hg] [facility] 06-18-2024 10:40-0500 Heart rate 64 /min [facility] 06-18-2024 10:40-0500 SaO2% (BldA) [Mass fraction] 97 % [facility] 06-18-2024 10:40-0500 Systolic blood pressure 122 mm[Hg] [facility] 05-21-2024 10:40-0500 Body height 172.72 cm [facility] 05-21-2024 10:40-0500 Body mass index (BMI) [Ratio] 22.2 kg/m2 [facility] 05-21-2024 10:40-0500 Body weight 66.33 kg [facility] 05-21-2024 10:40-0500 Diastolic blood pressure 72 mm[Hg] [facility] 05-21-2024 10:40-0500 Heart rate 73 /min [facility] 05-21-2024 10:40-0500 Respiratory rate 12 /min [facility] 05-21-2024 10:40-0500 SaO2% (BldA) [Mass fraction] 98 % [facility] 05-21-2024 10:40-0500 Systolic blood pressure 116 mm[Hg] [facility] 05-20-2024 14:39-0500 Body height 167.6 cm Fatemeh Desiree DO Work Phone: [facility] 05-20-2024 14:39-0500 Body mass index (BMI) [Ratio] 23.08 kg/m2 Fatemeh Desiere DO Work Phone: [facility] 05-20-2024 14:39-0500 Body weight 64.86 kg Fatemeh Desiree DO Work Phone: [facility] 05-20-2024 14:39-0500 Diastolic blood pressure 77 mm[Hg] Fatemeh Desiree DO Work Phone: [facility] 05-20-2024 14:39-0500 Heart rate 50 /min Fatemeh Desiree DO Work Phone: [facility] 05-20-2024 14:39-0500 Systolic blood pressure 122 mm[Hg] Fatemeh Desiree DO Work Phone: [facility] 04-30-2024 10:19-0500 Body height 167.6 cm Hair Foley DPM Work Phone: [facility] 04-30-2024 10:19-0500 Body mass index (BMI) [Ratio] 22.92 kg/m2 Hair Foley DPM Work Phone: [facility] 04-30-2024 10:19-0500 Body weight 64.41 kg Hair Foley DPM Work Phone: [facility] 04-30-2024 10:19-0500 Respiratory rate 18 /min Hair Foley DPM Work Phone: [facility] 04-22-2024 11:00-0500 Body height 172.72 cm [facility] 04-22-2024 11:00-0500 Body mass index (BMI) [Ratio] 22.1 kg/m2 [facility] 04-22-2024 11:00-0500 Body weight 66.22 kg [facility] 04-22-2024 11:00-0500 Diastolic blood pressure 64 mm[Hg] [facility] 04-22-2024 11:00-0500 Heart rate 102 /min [facility] 04-22-2024 11:00-0500 Respiratory rate 12 /min [facility] 04-22-2024 11:00-0500 Systolic blood pressure 115 mm[Hg] [facility] 02-20-2024 09:47-0400 Body height 167.6 cm Hair Foley DPM Work Phone: [facility] 02-20-2024 09:47-0400 Body mass index (BMI) [Ratio] 22.92 kg/m2 Hair Foley DPM Work Phone: [facility] 02-20-2024 09:47-0400 Body weight 64.41 kg Hair Foley DPM Work Phone: [facility] 02-20-2024 09:47-0400 Diastolic blood pressure 75 mm[Hg] Hair Foley DPM Work Phone: [facility] 02-20-2024 09:47-0400 Heart rate 80 /min Hair Foley DPM Work Phone: [facility] 02-20-2024 09:47-0400 Systolic blood pressure 129 mm[Hg] Hair Foley DPM Work Phone: [facility] 02-17-2024 11:31-0400 Body mass index (BMI) [Ratio] 22.4 kg/m2 [facility] 02-17-2024 11:31-0400 Diastolic blood pressure 89 mm[Hg] [facility] 02-17-2024 11:31-0400 Systolic blood pressure 139 mm[Hg] [facility] 02-17-2024 11:02-0400 Body height 172.72 cm [facility] 02-17-2024 11:02-0400 Body weight 66.79 kg [facility] 02-17-2024 11:02-0400 Heart rate 60 /min [facility] 02-17-2024 11:02-0400 Respiratory rate 12 /min [facility] 01-28-2024 11:51-0400 Diastolic blood pressure 68 mm[Hg] Fatemeh Desiree DO Work Phone: [facility] 01-28-2024 11:51-0400 Heart rate 54 /min Fatemeh Desiree DO Work Phone: [facility] 01-28-2024 11:51-0400 SaO2% (BldA) [Mass fraction] 98 % Fatemeh Desiree DO Work Phone: [facility] 01-28-2024 11:51-0400 Systolic blood pressure 120 mm[Hg] Fatemeh Desiree DO Work Phone: [facility] 01-23-2024 11:12-0400 Body height 167.6 cm Hawk Hill DO Work Phone: [facility] 01-23-2024 11:12-0400 Body mass index (BMI) [Ratio] 22.92 kg/m2 Hawk Hill DO Work Phone: [facility] 01-23-2024 11:12-0400 Body temperature 97.5 [degF] Hawk Hill DO Work Phone: [facility] 01-23-2024 11:12-0400 Body weight 64.41 kg Hawk Hill DO Work Phone: [facility] 10-17-2023 10:39-0400 Body height 172.72 cm [facility] 10-17-2023 10:39-0400 Body mass index (BMI) [Ratio] 21.4 kg/m2 [facility] 10-17-2023 10:39-0400 Body weight 64.12 kg [facility] 10-17-2023 10:39-0400 Diastolic blood pressure 56 mm[Hg] [facility] 10-17-2023 10:39-0400 Heart rate 63 /min [facility] 10-17-2023 10:39-0400 Respiratory rate 12 /min [facility] 10-17-2023 10:39-0400 Systolic blood pressure 133 mm[Hg] [facility] 08-20-2023 10:13-0400 Blood Pressure Location HEATHER OQUENDO [facility] 08-20-2023 10:13-0400 Body temperature 97.34 [degF] HEATHER OQUENDO [facility] 08-20-2023 10:13-0400 Diastolic blood pressure 57 mm[Hg] HEATHER OQUENDO [facility] 08-20-2023 10:13-0400 Heart rate 64 /min HEATHER OQUENDO [facility] 08-20-2023 10:13-0400 Respiratory rate 19 /min HEATHER OQUENDO [facility] 08-20-2023 10:13-0400 Systolic blood pressure 105 mm[Hg] HEATHER GUEVARARY [facility] 06-20-2023 10:42-0500 Body height 172.72 cm [facility] 06-20-2023 10:42-0500 Body mass index (BMI) [Ratio] 22 kg/m2 [facility] 06-20-2023 10:42-0500 Body weight 65.77 kg [facility] 06-20-2023 10:42-0500 Diastolic blood pressure 66 mm[Hg] [facility] 06-20-2023 10:42-0500 Heart rate 103 /min [facility] 06-20-2023 10:42-0500 Respiratory rate 20 /min [facility] 06-20-2023 10:42-0500 Systolic blood pressure 102 mm[Hg] [facility] 05-09-2023 11:00-0500 Body height 172.72 cm Miguel Ball Other [facility] 05-09-2023 11:00-0500 Body mass index (BMI) [Ratio] 21.98 kg/m2 Miguel Ball Other [facility] [employer] Other 05-09-2023 11:00-0500 Body weight 65.59 kg Miguel Ball Other [facility] [employer] Other 05-09-2023 11:00-0500 Body weight 65.58 kg [facility] 05-09-2023 11:00-0500 Diastolic blood pressure 66 mm[Hg] Miguel Ball Other [facility] 05-09-2023 11:00-0500 Respiratory rate 12 /min Miguel Ball Other [facility] [employer] Other 05-09-2023 11:00-0500 Systolic blood pressure 118 mm[Hg] Miguel Ball Other [facility] 10-26-2022 10:30-0400 Body height 172.72 cm Miguel Ball Other [facility] [employer] Other 10-26-2022 10:30-0400 Body mass index (BMI) [Ratio] 21.89 kg/m2 Miguel Ball Other [place] [employer] Other 10-26-2022 10:30-0400 Body weight 65.32 kg Miguel Ball Other [facility] [employer] Other 10-26-2022 10:30-0400 Diastolic blood pressure 60 mm[Hg] Miguel Ball Other [facility] [employer] Other 10-26-2022 10:30-0400 Respiratory rate 12 /min Miguel Ball Other [place] [employer] Other 10-26-2022 10:30-0400 Systolic blood pressure 104 mm[Hg] Miguel Ball Other [facility] [employer] Other 08-17-2022 08:47-0400 Blood Pressure Location Conner SÁNCHEZ [facility] 08-17-2022 08:47-0400 Diastolic blood pressure 76 mm[Hg] Conner SÁNCHEZ [facility] 08-17-2022 08:47-0400 Heart rate 80 /min Conner SÁNCHEZ [facility] 08-17-2022 08:47-0400 Respiratory rate 16 /min Conner SÁNCHEZ [facility] 08-17-2022 08:47-0400 Systolic blood pressure 128 mm[Hg] Conner SÁNCHEZ [facility] 08-14-2021 09:20-0400 Blood Pressure Location Conner SÁNCHEZ [facility] 08-14-2021 09:20-0400 Diastolic blood pressure 76 mm[Hg] Conner SÁNCHEZ [facility] 08-14-2021 09:20-0400 Heart rate 61 /min Conner SÁNCHEZ [facility] 08-14-2021 09:20-0400 Systolic blood pressure 160 mm[Hg] Conner SÁNCHEZ [facility] Encounters Encounter Date Encounter Type Care Provider Facility Start: 07-24-2024 End: 07-24-2024 ambulatory SELF Facility:[facility] Start: 07-16-2024 End: 07-16-2024 [employer] flowsheet Hair Foley DPM Work Phone: [facility] Start: 07-16-2024 End: 07-16-2024 [employer] Hair Foley DPM Work Phone: [facility] Start: 07-16-2024 End: 07-16-2024 Patient encounter procedure Hair Foley DPM Work Phone: [facility] Comment on above: Verruca plantaris (P rimary Dx); Foot pain, left; Pain due to onychomycosis of toenails of both feet Start: 07-16-2024 End: 07-16-2024 ambulatory HAIR Naranjo ALAINA Not Available Start: 06-26-2024 ambulatory MASON ALMEIDA [facility] Start: 06-24-2024 End: 06-24-2024 ambulatory MIKE VEE Facility:[facility] Start: 06-24-2024 End: 06-24-2024 Office outpatient new 45 minutes Mike eVe MD Work Phone: Hematology/Oncology Comment on above: Macrocytosis (Primar y Dx) Start: 06-23-2024 End: 06-23-2024 Chart abstracting Mike Vee MD Work Phone: Hematology/Oncology Start: 06-18-2024 End: 06-18-2024 ambulatory [facility] Work Phone: Start: 06-18-2024 End: 06-18-2024 Patient encounter procedure [facility] Work Phone: Start: 05-22-2024 ambulatory [facility] Start: 05-21-2024 End: 05-21-2024 ambulatory [facility] Work Phone: Start: 05-21-2024 End: 05-21-2024 Patient encounter procedure [facility] Work Phone: Start: 05-20-2024 End: 05-20-2024 Office outpatient visit 25 minutes Fatemeh Ramírez DO Work Phone: [facility] Comment on above: Late onset Alzheimer dementia, unspecified dementia severity, unspecified whether behavioral, psychotic, or mood disturbance or anxiety (CMS/HCC) (Primary Dx); S/P CABG (coronary artery bypass graft) Start: 05-20-2024 End: 05-20-2024 ambulatory FATEMEH RAMÍREZ Not Available Start: 05-20-2024 End: 05-20-2024 Bamboo flowsheet Fatemeh Ramírez DO Work Phone: [facility] Start: 05-20-2024 End: 05-20-2024 Bamboo flowsheet Fatemeh Ramírez DO Work Phone: [facility] Start: 05-20-2024 Non-patient / Non-visit [facility] Work Phone: Start: 04-30-2024 End: 04-30-2024 Bamboo flowsheet Hair Foley DPM Work Phone: [facility] Start: 04-30-2024 End: 04-30-2024 Bamboo flowsheet Hair Foley DPM Work Phone: [facility] Start: 04-30-2024 End: 04-30-2024 Patient encounter procedure Hair Foley DPM Work Phone: [facility] Comment on above: Verruca plantaris (P rimary Dx); Foot pain, left; Pain due to onychomycosis of toenails of both feet Start: 04-30-2024 End: 04-30-2024 ambulatory HAIR FOLEY Not Available Start: 04-24-2024 ambulatory CAMACHO MOHAMUD [facility] Start: 04-24-2024 ambulatory MASON ALMEIDA [facility] Start: 04-22-2024 End: 04-22-2024 Patient encounter procedure [facility] Work Phone: Start: 04-15-2024 Non-patient / Non-visit [facility] Work Phone: Start: 04-14-2024 Evaluation and management of inpatient STEVEI YULISSA [facility] Start: 04-13-2024 Evaluation and management of inpatient [facility] Start: 04-13-2024 Evaluation and management of inpatient [facility] Start: 04-13-2024 Evaluation and management of inpatient [facility] Start: 04-13-2024 Evaluation and management of inpatient [facility] Start: 04-12-2024 Non-patient / Non-visit [facility] Work Phone: Start: 04-12-2024 End: 04-15-2024 Evaluation and management of inpatient CAROL CEDILLO [facility] Start: 04-12-2024 Non-patient / Non-visit [facility] Work Phone: Start: 04-01-2024 End: 04-01-2024 ambulatory [facility] Start: 03-27-2024 ambulatory [facility] Start: 03-26-2024 ambulatory [facility] Start: 03-13-2024 ambulatory [facility] Start: 03-10-2024 End: 03-10-2024 ambulatory RIVKA [facility] Start: 02-28-2024 ambulatory [facility] Start: 02-26-2024 ambulatory [facility] Start: 02-26-2024 End: 02-26-2024 ambulatory [facility] Start: 02-21-2024 Non-patient / Non-visit [facility] Work Phone: Start: 02-20-2024 End: 02-20-2024 Bamboo flowsjrodan Foley DPM Work Phone: [facility] Start: 02-20-2024 End: 02-20-2024 Bamboo flowsjordan Foley DPM Work Phone: [facility] Start: 02-20-2024 End: 02-20-2024 ambulatory HAIR FOLEY Not Available Start: 02-20-2024 End: 02-20-2024 Office outpatient visit 15 minutes Hair Foley DPM Work Phone: [facility] Comment on above: Neoplasm of uncertai n behavior of skin (Primary Dx); Verruca plantaris; Foot pain, left; Pain due to onychomycosis of toenails of both feet Start: 02-17-2024 End: 02-17-2024 ambulatory [facility] Work Phone: Start: 02-17-2024 End: 02-17-2024 Patient encounter procedure [facility] Work Phone: Start: 02-14-2024 Patient encounter procedure [facility] Start: 02-07-2024 Non-patient / Non-visit [facility] Work Phone: Start: 02-06-[address] 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 (Primary Dx) Start: 01-28-2024 End: 01-28-2024 ambulatory FATEMEH RAMÍREZ Not Available Start: 01-23-2024 End: 01-23-2024 Patient encounter procedure Hawk Hill DO Work Phone: [facility] Comment on above: 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) Start: 01-23-2024 End: 01-23-2024 ambulatory HAWK HILL Not Available Start: 01-23-2024 End: 01-23-2024 ambulatory HAWK HILL Not Available Start: 01-14-2024 End: 01-14-2024 ambulatory CAMACHO [facility] Start: 12-26-2023 ambulatory [facility] Start: 12-17-2023 ambulatory SILVERIO [facility] Start: 12-12-2023 End: 12-12-2023 ambulatory HAIR FOLEY Not Available Start: 12-04-2023 End: 12-04-2023 [facility] Start: 11-14-2023 End: 11-14-2023 ambulatory HAIR FOLEY Not Available Start: 10-29-2023 ambulatory CAMACHO [facility] Start: 10-24-2023 End: 10-24-2023 ambulatory HAIR FOLEY Not Available Start: 10-17-2023 End: 10-17-2023 ambulatory [facility] Work Phone: Start: 10-17-2023 End: 10-17-2023 Patient encounter procedure [facility] Work Phone: Start: 10-15-[address] [facility] Start: 10-15-[address] [facility] Start: 10-10-2023 End: 10-10-2023 ambulatory HAIR FOLEY Not Available Start: 10-09-2023 ambulatory CAMACHO [facility] Start: 09-26-2023 End: 09-26-2023 ambulatory HAIR A BROWN Not Available Start: 09-12-2023 End: 09-12-2023 ambulatory HAIR A BROWN Not Available Start: 09-11-2023 End: 09-11-2023 ambulatory FATEMEH RAMÍREZ Not Available Start: 09-02-2023 Non-patient / Non-visit [facility] Work Phone: Start: 08-29-2023 End: 08-29-2023 ambulatory SAVI HAMILTON Not Available Start: 08-29-2023 End: 08-29-2023 ambulatory HAIR FOLEY Not Available Start: 08-26-2023 End: 08-26-2023 ambulatory HAIR FOLEY Not Available Start: 08-20-2023 End: 08-21-2023 ambulatory HEATHER Dixon AZRA Facility:[facility] Start: 08-20-2023 End: 08-20-2023 Patient encounter procedure HEATHER OQUENDO [facility] Start: 08-15-2023 End: 08-15-2023 ambulatory HAIR FOLEY Not Available Start: 08-01-2023 End: 08-01-2023 ambulatory HAIR FOLEY Not Available Start: 07-29-2023 ambulatory CAMACHO MOHAMUD [facility] Start: 07-12-2023 End: 07-12-2023 [facility] Start: 07-10-2023 Non-patient / Non-visit [facility] Work Phone: Start: 06-20-2023 End: 06-20-2023 ambulatory [facility] Work Phone: Start: 06-20-2023 End: 06-20-2023 Patient encounter procedure [facility] Work Phone: Start: 05-29-2023 End: 05-29-2023 ambulatory Miguel Lala Other [employer] Other Start: 05-29-2023 Telephone encounter Miguel BONILLA [facility] Start: 05-27-2023 End: 05-27-2023 ambulatory Miguel Lala Other [employer] Other Start: 05-27-2023 Telephone encounter Miguel BONILLA [facility] Start: 05-15-2023 End: 05-15-2023 ambulatory Miguel Lala Other [employer] Other Start: 05-15-2023 Telephone encounter Miguel Ball FP [facility] Start: 05-15-2023 Patient encounter procedure [facility]- Start: 05-13-2023 End: 05-13-2023 ambulatory Miguel Ball Other [employer] Other Start: 05-13-2023 Telephone encounter Miguel Ball FP [facility] Start: 05-09-2023 End: 05-09-2023 ambulatory Miguel Ball Other [employer] Other Start: 05-09-2023 Office outpatient vi sit 25 minutes Miguel Ball [facility] Start: 05-09-2023 End: 05-09-2023 Patient encounter procedure [facility] Work Phone: Start: 01-29-2023 End: 01-29-2023 ambulatory Miguel Ball Other [employer] Other Start: 01-29-2023 Telephone encounter Miguel Ball FP [facility] Start: 01-21-2023 End: 01-21-2023 ambulatory Miguel Ball Other [employer] Other Start: 01-21-2023 Telephone encounter Miguel Ball FP [facility] Start: 12-31-2022 End: 12-31-2022 ambulatory Miguel Ball Other [employer] Other Start: 12-31-2022 Telephone encounter Miguel Ball [facility] Start: 12-29-2022 End: 12-29-2022 ambulatory Miguel Ball Other [employer] Other Start: 12-29-2022 Telephone encounter Miguel Ball FP [facility] Start: 12-26-2022 End: 12-26-2022 ambulatory Miguel Ball Other [employer] Other Start: 12-26-2022 Telephone encounter Miguel Ball [facility] Start: 10-26-2022 End: 10-26-2022 ambulatory Miguel Lala Other [employer] Other Start: 10-26-2022 Office outpatient vi sit 25 minutes Miguel Lala [facility] Start: 08-17-2022 End: 08-17-2022 Patient encounter procedure Conner SÁNCHEZ [facility] Start: 08-14-2022 End: 08-14-[address] MIGUEL LALA Facility:[facility] Start: 06-11-2022 End: 06-12-2022 ambulatory KAILASH BARNES Facility:[facility] Start: 02-16-2022 End: 02-17-[address] MIGUEL LALA Facility:[facility] Start: 01-19-2022 End: 01-20-[address] MIGUEL LALA Facility:[facility] Start: 01-16-2022 Adult health examination Сергей chowdhury Dai Other [employer] Other Start: 01-16-2022 Encounter for genera l adult medical examination without abnormal findings Miguel Lala Other [employer] Other Start: 08-14-2021 End: 08-14-2021 Patient encounter procedure Conner SÁNCHEZ [facility] Procedures Date Procedure Procedure Detail Performing Clinician Start: 01-23-2024 Arthrocentesis aspir&/inj major jt/bursa w/o us Hawk Hill DO Work Phone: Start: 01-23-2024 Radiologic examination knee 3 views Jaron Hill DO Work Phone: Start: 09-01-2020 Transurethral prostatectomy Conner HOUSTON Start: 05-31-2020 Cystoscopy Conner SÁNCHEZ Start: 05-11-2015 Screening for malignant neoplasm of prostate Miguel Lala Other Start: 05-10-2015 Screening for malignant neoplasm of colon Miguel Lala Other Start: 05-06-2011 Colonoscopy Conner SÁNCHEZ Start: 05-06-2011 Esophagogastroduodenoscopy Conner Bar Start: 05-06-2011 Total replacement of right hip joint Conner SÁNCHEZ Start: 05-06-1997 Femoral herniorrhaphy - bilateral Thomas SÁNCHEZ Start: 05-06-1994 Coronary artery bypass graft Conner WINTERS Depression screening Temo Lala Other History of coronary artery bypass grafting S/P CABG (coronary artery bypass graft) Fatemeh Desiree DO Work Phone: Plan of Treatment Date Care Activity Detail Author Start: 06-11-2032 Urine microalbumin profile DTaP,Tdap,Td Vaccine (3 - Td or Tdap) [facility] Start: 04-15-2027 Diabetes Screening Diabetes Screenin g [facility] Start: 12-23-2024 End: 12-23-2024 Follow-up encounter 12/23/2024 2:00 PM EDT Visit (SP) Office Hematology/Oncology [facility] [place] [address] Mike Vee MD [facility] [place] [address] 6 month follow up Hematology/Oncology Comment on above: 6 month follow up Start: 12-23-2024 End: 12-23-2024 Patient encounter procedure 12/23/2024 1:45 PM EDT Office Visit [facility] [address] [place] [address] [facility] Comment on above: 6 month follow up Start: 09-08-2024 End: 09-08-2024 Patient encounter procedure 09/08/2024 2:15 PM EDT Office Visit [facility] [address] [place] [id number] Fatemeh Ramírez DO [address] [place] [address] [facility] Start: 08-06-2024 Covid-19 Vaccine ( season) Covid-19 Vaccine ( season) [facility] Start: 07-16-2024 End: 07-16-2024 Patient encounter procedure [facility] Comment on above: Verruca plantaris (P rimary Dx); Foot pain, left; Pain due to onychomycosis of toenails of both feet Start: 06-24-2024 End: 06-24-2024 ambulatory 06/24/2024 4:00 PM EST Visit (SP) Office Hematology/Oncology [address] [place] [address] [place] [address] Mike Vee MD [address] [place] [address] [place] [address] Cornelio Lala with [facility] Comment on above: Referred by Dr. Ethel Lala with [facility] Start: 06-24-2024 End: 09-23-2024 CBC W Auto Differential panel - Blood COMPLETE BLOOD COUNT AND DIFFERENTIAL Lab Routine Macrocytosis Expected: 06/24/2024, Expires: 09/23/2024 [facility] Work Phone: Comment on above: Expected: 06/24/2024 , Expires: 09/23/2024 Start: 06-24-2024 End: 09-23-2024 Cobalamin (Vitamin B12) [Mass/volume] in Serum or Plasma VITAMIN B12 Lab Routine Macrocytosis Expected: 06/24/2024, Expires: 09/23/2024 [facility] Comment on above: Expected: 06/24/2024 , Expires: 09/23/2024 Start: 06-24-2024 End: 09-23-2024 Comprehensive metabolic 2000 panel - Serum or Plasma COMPREHENSIVE METABOLIC PANEL Lab Routine Macrocytosis Expected: 06/24/2024, Expires: 09/23/2024 [facility] Comment on above: Expected: 06/24/2024 , Expires: 09/23/2024 Start: 06-24-2024 End: 09-23-2024 Folate [Mass/volume] in Serum or Plasma FOLATE, SERUM Lab Routine Macrocytosis Expected: 06/24/2024, Expires: 09/23/2024 [facility] Comment on above: Expected: 06/24/2024 , Expires: 09/23/2024 Start: 06-24-2024 End: 09-23-2024 KAPPA/RUFF,FREE,SER KAPPA/RUFF,FREE,SER Lab Routine Macrocytosis Expected: 06/24/2024, Expires: 09/23/2024 [facility] Comment on above: Expected: 06/24/2024 , Expires: 09/23/2024 Start: 06-24-2024 End: 09-23-2024 PROTEIN ELECTROPHORESIS SERUM W/INTERP PROTEIN ELECTROPHORESIS SERUM W/INTERP Lab Routine Macrocytosis Expected: 06/24/2024, Expires: 09/23/2024 [facility] Comment on above: Expected: 06/24/2024 , Expires: 09/23/2024 Start: 05-20-2024 End: 05-20-2024 Patient encounter procedure 05/20/2024 2:30 PM EST Office Visit [facility] [address] [place] [id number] Fatemeh Ramírez DO [address] [place] [address] Arrived [facility] Comment on above: Arrived Start: 05-19-2024 End: 05-19-2024 Patient encounter procedure 05/19/2024 11:30 AM EST Office Visit [facility] [place] [address] [place] [id number] Fatemeh Ramírez, DO [address] [place] [address] [facility] [address] Start: 05-06-2024 Advance Directive Discussion Advance Directive Discussion [facility] Start: 04-30-2024 End: 04-30-2024 Patient encounter procedure [facility] Comment on above: Verruca plantaris (P rimary Dx); Foot pain, left; Pain due to onychomycosis of toenails of both feet Start: 02-20-2024 End: 02-20-2024 Patient encounter procedure 02/20/2024 9:40 AM EDT [facility] [address] [facility] [address] [place] [address] Hair Foley DPM [address] [facility] [address] [place] [address] [facility] Start: 01-28-2024 End: 01-28-2024 Patient encounter procedure [facility] [address] Comment on above: Arrived Start: 01-05-2024 Covid-19 Vaccine () Covid-19 Vaccine () [facility] Start: 01-05-2024 Influenza vaccination Influenza Vacc ine (#1) [facility] Start: 06-20-2023 Patient referral [facility] Work Phone: Start: 04-03-2018 Pneumococcal Vaccine : 50+ (2 of 2 - PPSV23) Pneumococcal Vaccine: 50+ (2 of 2 - PPSV23) [facility] Start: 2011 RSV Vaccine (1 - 1-d ose 75+ series) RSV Vaccine (1 - 1-dose 75+ series) [facility] Start: 1954 Anxiety Screening Anxiety Screening [facility] Start: 1954 Depression Screening Depression Scre ening [facility] Comprehensive metabo lic 2000 panel - Serum or Plasma [facility] Patient referral [facility] Work Phone: [facility] Immunizations Immunization Date Immunization Notes Care Provider Fa cility 01-28-2024 influenza, high dose seasonal, preservative-free [facility] 01-28-2024 influenza virus vaccine, unspecified formulation Hair Foley DPM Work Phone: [facility] 01-28-2023 influenza virus vaccine, unspecified formulation [facility] 01-28-2023 influenza, high dose seasonal, preservative-free Miguel Lala Other [facility] [employer] Other 02-10-2022 COVID-19 Vaccine Pfi zer - Documentation Purposes Only Miguel Lala Other [facility] 01-05-2022 influenza virus vaccine, split virus (incl. purified surface antigen) Miguel Lala Other [facility] [employer] Other 01-05-2022 influenza virus vaccine, unspecified formulation [facility] 02-15-2021 influenza virus vaccine, unspecified formulation Conner SÁNCHEZ [facility] 01-17-2021 influenza virus vaccine, split virus (incl. purified surface antigen) Miguel Lala Other [facility] [employer] Other 01-17-2021 influenza virus vaccine, unspecified formulation [facility] 06-15-2020 SARS-CoV-2 (COVID-19 ) Ad26 vaccine, recombinant Conner SÁNCHEZ [facility] 05-12-2020 SARS-CoV-2 (COVID-19 ) Ad26 vaccine, recombinant Conner SÁNCHEZ [facility] 01-02-2020 influenza virus vaccine, split virus (incl. purified surface antigen) Miguel Lala Other [place] [employer] Other 01-02-2020 influenza virus vaccine, unspecified formulation [facility] 02-12-2018 influenza virus vaccine, split virus (incl. purified surface antigen) Miguel Lala Other [facility] [employer] Other 02-12-2018 influenza virus vaccine, unspecified formulation [facility] 04-03-2017 pneumococcal conjuga te vaccine, 13 valent Miguel Lala Other [facility] 03-22-2017 influenza virus vaccine, split virus (incl. purified surface antigen) Miguel Dai Other [facility] [employer] Other 03-22-2017 influenza virus vaccine, unspecified formulation [facility] 02-08-2016 diphtheria, tetanus toxoids and acellular pertussis vaccine, unspecified formulation Miguel Lala Other [facility] 01-03-2016 influenza virus vaccine, split virus (incl. purified surface antigen) Miguel Dai Other [facility] [employer] Other 01-03-2016 influenza virus vaccine, unspecified formulation [facility] 05-10-2015 pneumococcal conjuga te vaccine, 13 valent Miguel Dai Other [facility] 01-13-2014 tetanus and diphther ia toxoids, adsorbed, preservative free, for adult use (5 Lf of tetanus toxoid and 2 Lf of diphtheria toxoid) Miguel Lala Other [facility] 03-11-2013 tetanus and diphther ia toxoids, adsorbed, preservative free, for adult use (5 Lf of tetanus toxoid and 2 Lf of diphtheria toxoid) Miguel Lala Other [facility] 01-26-2013 tetanus and diphther ia toxoids, adsorbed, preservative free, for adult use (5 Lf of tetanus toxoid and 2 Lf of diphtheria toxoid) Miguel Lala Other [facility] 01-21-2013 tetanus and diphther ia toxoids, adsorbed, preservative free, for adult use (5 Lf of tetanus toxoid and 2 Lf of diphtheria toxoid) Miguel Lala Other [facility] 04-12-2010 pneumococcal polysaccharide vaccine, 23 valent Miguel Lala Other [facility] Payers Date Payer Category Payer Private Health Insurance [id number] 2023 Unknown AARP AARP [id number] 2023-Present [address] [place] [address] [id number] 2001 Medicare [id number] 1959 Medicare [id number] 1959 Unknown [id number] 1936 Unknown [id number] 2.16.840.1.858890.3.579.2.5 93 1936 Unknown [id number] 2.16.840.1.760006.3.579.2.5 93 1936 Unknown [id number] 2.16.840.1.044463.3.579.2.5 93 1936 Unknown [id number] 2.16.840.1.776471.3.579.2.5 93 1936 Unknown [id number] 2.16.840.1.587474.3.579.2.7 27 1936 Unknown [id number] 2.16.840.1.390374.3.579.2.1 259 1936 Unknown [id number] 2.16.840.1.660689.3.579.2.1 259 1936 Unknown [id number] 2.16.840.1.903940.3.579.2.1 259 1936 Unknown [id number] 2.16.840.1.766971.3.579.2.1 259 1936 Unknown [id number] 2.16.840.1.927791.3.579.2.1 259 1936 Unknown [id number] 2.16.840.1.306072.3.579.2.1 259 1936 Unknown [id number] 2.16.840.1.578476.3.579.2.1 259 1936 Unknown [id number] 2.16.840.1.024962.3.579.2.1 259 1936 Unknown [id number] 2.16.840.1.522714.3.579.2.1 259 1936 Unknown [id number] 2.16.840.1.693176.3.579.2.1 259 1936 Unknown [id number] 2.16.840.1.373318.3.579.2.1 259 1936 Unknown [id number] 2.16.840.1.357415.3.579.2.1 259 1936 Unknown [id number] 2.16.840.1.083385.3.579.2.1 259 1936 Unknown [id number] 2.16.840.1.231551.3.579.2.1 259 1936 Unknown [id number] 2.16.840.1.360577.3.579.2.1 259 1936 Unknown [id number] 2.16.840.1.576965.3.579.2.1 259 1936 Unknown [id number] 2.16.840.1.517035.3.579.2.1 259 1936 Unknown [id number] 2.16.840.1.173533.3.579.2.1 259 1936 Unknown [id number] 2.16.840.1.897240.3.579.2.1 259 Social History Date Type Detail Facility Start: 08-14-2021 End: 06-04-2023 Tobacco smoking status Never smoked tobacco (finding) [facility] Tobacco smoking status Never [facility] Start: 01-28-2024 End: 05-20-2024 Sex Assigned At Male [facility] Start: 1935 Sex Assigned At Male F [facility] Start: 06-04-2023 End: 06-23-2024 Tobacco use and exposure Smokeless tobacco non-user [facility] Start: 01-28-2024 End: 07-16-2024 Alcoholic beverage intake Defer [facility] Start: 01-28-2024 End: 05-20-2024 History of Social function [facility] Start: 1935 Sex assigned at Not on file [facility] Start: 05-21-2024 End: 06-18-2024 Sex Male (finding) [facility] History of tobacco use Passive smoker [facility] Start: 06-23-2024 End: 06-24-2024 Alcoholic beverage intake Ex-drinker (finding) [facility] Functional Status Date Assessment Result Facility 08-20-2023 Functional Status N/A [facility] 08-17-2022 Functional Status Yes [facility] Clinical Notes 08-14-2021 to 07-24-2024 Hair Foley DPM - 07/16/2024 10:10 AM EDTPatient Mike Morton MD - 06/24/2024 4:00 PM Rajiv Ramírez DO - 05/20/2024 2:30 PM EST Note Date & Type Note Facility 07-24-2024 Note HNO ID: [id number] Author: AGUILA LIZARRAGA OCCA Service: ? Author Type: Gas Regulator Repairer Helper Type: Progress Notes Filed: 07/24/2024 07:49 Note Text: Annelise Olson is a 89 year old year old left handed man Accompanied by: spouse and son. Referral by: SELF Education: High School Diploma, 12 years Employment Status: Retired Title of Last Job (What did pt do?) Jaron ---- What would you like to accomplish with this visit today? Vital Signs: BP 130/55 Pulse (!) 54 Wt 65.1 kg (143 lb 9.6 oz) [facility] 07-16-2024 History of Present illness Narrative Patient: Annelise Olson : 1935 PCP: Miguel Lala MD SUBJECTIVE Patient presents today for follow up of skin lesion/neoplasm of unknown origin to the left foot Pt states that previous treatment of acid tx with some improvement Pt rates pain the pain on a 1-10 scale an intensity of 4 Pt presents today for followup. Discussion on prior visit of removal of lesion with flap closure. Patient presents today with a CC of elongated, thick nails. Pt states nails have been elongated and thick for many years and cause pain with ambulation in shoegear. Pt has tried previous treatment with minimal relief. Pt presents today for nail care and treatment. Allergies: Allergies Allergen Reactions Avelox [Moxifloxacin] Ciprofloxacin Fenoprofen Iodinated Contrast Media Naproxen Unknown Sulfa Antibiotics Past Medical History: Past Medical History: Diagnosis Date Arthritis CTS (carpal tunnel syndrome) GERD (gastroesophageal reflux disease) Heart abnormality Hyperlipidemia (CMS/HCC) Hypertension (CMS/HCC) Kidney disease Medications: Current Outpatient Medications: Apoaequorin (PREVAGEN EXTRA STRENGTH PO), Take by mouth, Disp: , Rfl: aspirin 81 MG EC tablet, Take 81 mg by mouth in the morning., Disp: , Rfl: atorvastatin (Lipitor) 40 MG tablet, Take 40 mg by mouth in the morning., Disp: , Rfl: cetirizine (ZyrTEC) 5 MG tablet, Take 10 mg by mouth in the morning., Disp: , Rfl: clopidogrel (Plavix) 75 MG tablet, Take 75 mg by mouth Daily, Disp: , Rfl: Farxiga 10 MG, Take 10 mg by mouth in the morning. (Patient not taking: Reported on 05/20/2024), Disp: , Rfl: Ginkgo Biloba (Ginkoba) 40 MG tablet, Take by mouth, Disp: , Rfl: memantine (Namenda) 10 MG tablet, Take 1 tablet (10 mg) by mouth in the morning and 1 tablet (10 mg) before bedtime., Disp: 240 tablet, Rfl: 2 memantine (Namenda) 5 MG tablet, 1 po q hs x 1 week , then 1 po bid x 1 week then 1 po q am and 2 po q hs for 1 week then 10mg pill bid, Disp: 42 tablet, Rfl: 0 metoprolol succinate XL (Toprol-XL) 25 MG 24 hr tablet, Take 12 mg by mouth Do not crush or chew., Disp: , Rfl: nitroglycerin (Nitrostat) 0.4 MG SL tablet, Place 0.4 mg under the tongue every 5 (five) minutes if needed, Disp: , Rfl: omeprazole (PriLOSEC) [address] capsule, Take 40 mg by mouth, Disp: , Rfl: rivaroxaban (Xarelto) 20 MG tablet, Take by mouth Take with food., Disp: , Rfl: spironolactone (Aldactone) 25 MG tablet, Take by mouth Daily, Disp: , Rfl: traMADol (Ultram) 50 MG tablet, Take 50 mg by mouth, Disp: , Rfl: Social History: Social History Socioeconomic History Marital status: Spouse name: Not on file Number of children: Not on file Years of education: Not on file Highest education level: Not on file Occupational History Not on file Tobacco Use Smoking status: Never Smokeless tobacco: Never Vaping Use Vaping status: Unknown Substance and Sexual Activity Alcohol use: Defer Drug use: Defer Sexual activity: Defer Other Topics Concern Not on file Social History Narrative Not on file Social Drivers of Health Financial Resource Strain: Low Risk (04/12/2024) Received from [facility] Overall Financial Resource Strain (CARDIA) Difficulty of Paying Living Expenses: Not hard at all Food Insecurity: No Food Insecurity (04/24/2024) Received from [facility] Hunger Vital Sign Within the past 12 months, you worried that your food would run out before you got the money to buy more.: Never true Within the past 12 months, the food you bought just didn't last and you didn't have money to get more.: Never true Transportation Needs: No Transportation Needs (04/24/2024) Received from [facility] Transportation In the past 12 months, has lack of transportation kept you from medical appointments or from getting medications?: No In the past 12 months, has lack of transportation kept you from meetings, work, or from getting things needed for daily living?: No Physical Activity: Not on file Stress: Not on file Social Connections: Not on file Intimate Partner Violence: Not At Risk (06/26/2024) Received from [facility] Humiliation, Afraid, Rape, and Kick questionnaire Fear of Current or Ex-Partner: No Emotionally Abused: No Physically Abused: No Sexually Abused: No Housing Stability: Low Risk (04/24/2024) Received from [facility] Housing Stability Vital Sign In the last 12 months, was there a time when you were not able to pay the mortgage or rent on time?: No In the past 12 months, how many times have you moved where you were living?: 1 At any time in the past 12 months, were you homeless or living in a mcc (including now)?: No ROS: Gastrointestinal: denies abdominal pain, ulcers, or changes in appetite or bowel habits Musculoskeletal: Positive history of arthritis, denies loss of strength, pain to hip, knees, back positive history of hip replacement in the past Cardiovascular: denies CP, palpitations, with history of [place] in the past and being worked up currently for atrial fibrillation OBJECTIVE LE EXAM: DERM: Positive hair growth to b/l feet with good skin turgor noted. Negative openings in skin. Left sub 5th metatarsal has a round nummular lesion that measure at the base 0.3 cm x 0.3 cm Elongated thick yellow crumbly nails digits 1 through 10 VASC: Barely Palpable pedal pulsed b/l with warm to cool tibia to toes b/l NEURO: Gross sensation intact digits 1-10 and b/l feet ORTHO: +5/5 DF/PF/IN/EV right, +5/5 DF/PF/IN/EV left. 20 degrees inversion and 10 degrees eversion STJ b/l. Ankle ROM less than 10 degrees b/l. Positive pain on palpation to left foot lesion Plantar flexed left 5th metatarsal head with notable pes cavus foot type bilaterally Positive pain on palpation to toenails of the left 1,2,3,4,5 toes and right 1,2,3,4,5 toes XRAY: US: ASSESSMENT 1. Verruca plantaris 2. Foot pain, left 3. Pain due to onychomycosis of toenails of both feet PLAN Application of salinocaine acid medication to lesion/lesions located at left foot Informed pt of risks and benefits of procedure including high reoccurence rate, infection, pain and consent given. Application of DSD post procedure. Discussed proper foot care with patient today. Debride nails in length and thickness digits 1 through 10 Discussed conservative and surgical treatment options for patient today including postoperative time frame and surgical procedure in detail. Patient may continue with conservative treatments including [id number] anti-inflammatories and other treatments suggested today. Patient may want to be scheduled for surgical intervention in the near future. Discussed possible excision of neoplasm of skin with single lobe flap closure in an outpatient environment. Patient does see a stage settings painter Dr Ramirez and primary care provider is Dr. Camacho Raymundo. He would like Ultram postoperatively and will call in near future if would like to schedule surgical intervention Hair Foley DPM documented in this encounter [facility] 06-26-2024 Note Subjective Patient ID: Annelise Olson is a 89 y.o. male who presents for No chief complaint on file.. Doing well. Able to vacuum and climb stairs. In cardiac rehab at [facility] [place] and doing well. No chest pain with walking on treadmill and other activities. Taking medications without problems. Discussed with family timing and dose. Review of Systems Respiratory: Negative for chest tightness and shortness of breath. Cardiovascular: Negative for chest pain and palpitations. Gastrointestinal: Negative for blood in stool. Genitourinary: Negative for hematuria. Neurological: Sometimes when I wake up at night I have to think where I am Objective Visit Vitals BP 121/52 (BP Location: Left arm, Patient Position: Standing) Pulse 61 Physical Exam Constitutional: Appearance: Normal appearance. He is normal weight. HENT: Head: Normocephalic and atraumatic. Neck: Vascular: No carotid bruit. Cardiovascular: Rate and Rhythm: Normal rate and regular rhythm. Pulses: Normal pulses. Carotid pulses are 2+ on the right side and 2+ on the left side. Radial pulses are 2+ on the right side and 2+ on the left side. Dorsalis pedis pulses are 2+ on the right side and 2+ on the left side. Heart sounds: S1 normal. No systolic murmur is present. No diastolic murmur is present. No friction rub. No gallop. Comments: Widely split S2 Pulmonary: Effort: Pulmonary effort is normal. Breath sounds: Normal breath sounds. Abdominal: General: Abdomen is flat. Palpations: Abdomen is soft. Musculoskeletal: Right lower leg: No edema. Left lower leg: No edema. Skin: General: Skin is warm and dry. Neurological: General: No focal deficit present. Mental Status: He is alert and oriented to person, place, and time. Mental status is at baseline. Psychiatric: Mood and Affect: Mood normal. Behavior: Behavior normal. Thought Content: Thought content normal. Judgment: Judgment normal. I reviewed cath from April Assessment/Plan Mr. Olson is doing well and asymptomatic after NSTEMI and PCI L main two months ago. REcommend to stop aspirin now and treat with plavix/rivaroxaban for one year and then probably stop plavix at that time. Diagnosis Plan 1. NSTEMI (non-ST elevated myocardial infarction) (CMS/HCC) metoprolol succinate XL (Toprol-XL) 25 mg 24 hr tablet 2. Typical atrial flutter (CMS/HCC) rivaroxaban (Xarelto) 20 mg tablet 3. Chronic HFrEF (heart failure with reduced ejection fraction) (CMS/HCC) 4. 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 No results found for this or any previous visit (from the past 36 hour(s)). No follow-ups on file. [facility] 06-24-2024 Instructions Mike Vee MD - 06/24/2024 4:22 PM EST Labs today F/u in 6 months documented in this encounter [facility] 06-24-2024 History of Present illness Narrative PATIENT NAME: Annelise Olson CLINIC NO.: [id number] ATTENDING PHYSICIAN: Mike Vee MD DATE OF SERVICE: June 24, [address] Miguel Lala ([facility]) [address] [place] [id number] thank you for referring Annelise Olson for an opinion regarding . CHIEF COMPLAINT: HPI: Annelise Olson is a 89 year old year old male with PMH of CAD s/p PCI, CHF, A flutter s/p ablation, HTN, CKD, dementia referred to us for macrocytosis. Doing well. No major complaints. No smoking No alcohol. Chronically elevated MCV. No current outpatient medications on file. No current facility-administered medications for this visit. ALLERGIES Not on File No past medical history on file. No past surgical history on file. No family history on file. REVIEW OF SYSTEMS GENERAL: No weight loss, malaise or fevers. No night sweats. HEENT: Negative for headaches, No changes in hearing or vision, no nose bleeds or other nasal problems. RESPIRATORY: Negative for cough, wheezing and shortness of breath CARDIOVASCULAR: Negative for chest pain, leg swelling and palpitations GI: Negative for abdominal discomfort, blood in stools or black stools and change in bowel habits : Negative for dysuria, frequency and incontinence MUSCULOSKELETAL: Negative for joint pain or swelling, back pain, and muscle pain. SKIN: Negative for lesions, rash, and itching. HEMATOLOGY/LYMPHOLOGY Negative for prolonged bleeding, bruising easily, and swollen nodes. NEURO: Negative for numbness or tingling of hands/feet. No weakness. PHYSICAL EXAMINATION: There were no vitals taken for this visit. There were no vitals taken for this visit. No data found for this vital: Wt General appearance:ECOG PERFORMANCE STATUS: 1- Restricted in physically strenuous activity. Carries out light duty. Patient in NAD. Skin: Skin color, texture, turgor normal. No rashes or lesions. Eyes: Anicteric sclera. Pupils are equally round and reactive to light. Extraocular movements are intact. Breast: No palpable breast masses. No nipple change or discharge. Lymph Nodes: No cervical, supraclavicular, axillary or inguinal adenopathy. Oropharynx: Lips, mucosa, and tongue normal. Back: No pain to percussion. Negative SLR test Lungs clear to auscultation, No wheezing or rhonchi Heart: RRR without murmur, gallop, or rubs. Abdomen soft, non-tender. No masses, organomegaly Extremities: No deformities. No edema Neuro: Gait and speech normal. Reflexes normal and symmetric. Muscular strength intact. Sensation grossly intact. Rectal: Deferred : Deferred LABS: No results found for: GLUC , K , NA , CHLOR , CO2 , CREAT , BUN , ANION , CA , TPROT , ALB , TBILI , ALKPHOS , AST , ALT No results found for: WBC , RBC , HB , HCT , MCV , MCH , MCHC , RDWCV , PLT , MPV , NEUT , ABSNEUT , LYMPHP , ABSLYMPH , MONOP , ABSMONO , EOSINP , ABSEOSIN , BASOP , ABSBASO PATH: IMAGING: ASSESSMENT AND PLAN: Annelise Olson is a 89 year old year old male referred to us for macrocytosis without anemia. 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 - Advised him to take MVT and B12 supplements - Check CBC CMP B12 folate SPEP K/L ratio - Given the normal blood counts, we will just monitor for now. - F/u with PCP and other consultants. - All his questions answered in detail. - F/u in [address] Miguel Lala ([facility]) [address] [place] [address] thank you for allowing me to participate in Annelise Olson care, if there are any questions or concerns please do not hesitate to contact me at the number below. I spent a total of 45 minutes on the date of the service which included preparing to see the patient, [id number] patient care, completing clinical documentation, obtaining and/or reviewing separately obtained history, performing a medically appropriate examination, counseling and educating the patient/family/caregiver, ordering medications, tests, or procedures, communicating with other HCPs (not separately reported), independently interpreting results (not separately reported), communicating results to the patient/family/caregiver, and care coordination (not separately reported). Mike Vee MD. Hematology/Medical Oncology [facility] [phone] CC: documented in this encounter [facility] 06-24-2024 Note HNO ID: [id number] Author: MIKE VEE MD Service: ? Author Type: Physician Type: Progress Notes Filed: 06/25/2024 13:54 Note Text: PATIENT NAME: Annelise Olson [facility] NO.: [id number] ATTENDING PHYSICIAN: Mike Vee MD DATE OF SERVICE: June 24, [address] Miguel Lala ([facility]) [address] [facility] [address] thank you for referring Annelise Olson for an opinion regarding . CHIEF COMPLAINT: HPI: Annelise Olson is a 89 year old year old male with PMH of CAD s/p PCI, CHF, A flutter s/p ablation, HTN, CKD, dementia referred to us for macrocytosis. Doing well. No major complaints. No smoking No alcohol. Chronically elevated MCV. No current outpatient medications on file. No current facility-administered medications for this visit. ALLERGIES Not on File No past medical history on file. No past surgical history on file. No family history on file. REVIEW OF SYSTEMS GENERAL: No weight loss, malaise or fevers. No night sweats. HEENT: Negative for headaches, No changes in hearing or vision, no nose bleeds or other nasal problems. RESPIRATORY: Negative for cough, wheezing and shortness of breath CARDIOVASCULAR: Negative for chest pain, leg swelling and palpitations GI: Negative for abdominal discomfort, blood in stools or black stools and change in bowel habits : Negative for dysuria, frequency and incontinence MUSCULOSKELETAL: Negative for joint pain or swelling, back pain, and muscle pain. SKIN: Negative for lesions, rash, and itching. HEMATOLOGY/LYMPHOLOGY Negative for prolonged bleeding, bruising easily, and swollen nodes. NEURO: Negative for numbness or tingling of hands/feet. No weakness. PHYSICAL EXAMINATION: There were no vitals taken for this visit. There were no vitals taken for this visit. No data found for this vital: Wt General appearance:ECOG PERFORMANCE STATUS: 1- Restricted in physically strenuous activity. Carries out light duty. Patient in NAD. Skin: Skin color, texture, turgor normal. No rashes or lesions. Eyes: Anicteric sclera. Pupils are equally round and reactive to light. Extraocular movements are intact. Breast: No palpable breast masses. No nipple change or discharge. Lymph Nodes: No cervical, supraclavicular, axillary or inguinal adenopathy. Oropharynx: Lips, mucosa, and tongue normal. Back: No pain to percussion. Negative SLR test Lungs clear to auscultation, No wheezing or rhonchi Heart: RRR without murmur, gallop, or rubs. Abdomen soft, non-tender. No masses, organomegaly Extremities: No deformities. No edema Neuro: Gait and speech normal. Reflexes normal and symmetric. Muscular strength intact. Sensation grossly intact. Rectal: Deferred : Deferred LABS: No results found for: GLUC , K , NA , CHLOR , CO2 , CREAT , BUN , ANION , CA , TPROT , ALB , TBILI , ALKPHOS , AST , ALT No results found for: WBC , RBC , HB , HCT , MCV , MCH , MCHC , RDWCV , PLT , MPV , NEUT , ABSNEUT , LYMPHP , ABSLYMPH , MONOP , ABSMONO , EOSINP , ABSEOSIN , BASOP , ABSBASO PATH: IMAGING: ASSESSMENT AND PLAN: Annelise Olson is a 89 year old year old male referred to us for macrocytosis without anemia. 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 - Advised him to take MVT and B12 supplements - Check CBC CMP B12 folate SPEP K/L ratio - Given the normal blood counts, we will just monitor for now. - F/u with PCP and other consultants. - All his questions answered in detail. - F/u in [address] Miguel Lala ([facility]) [address] [place] [id number] thank you for allowing me to participate in Annelise Olson care, if there are any questions or concerns please do not hesitate to contact me at the number below. I spent a total of 45 minutes on the date of the service which included preparing to see the patient, [id number] patient care, completing clinical documentation, obtaining and/or reviewing separately obtained history, performing a medically appropriate examination, counseling and educating the patient/family/caregiver, ordering medications, tests, or procedures, communicating with other HCPs (not separately reported), independently interpreting results (not separately reported), communicating results to the patient/family/caregiver, and care coordination (not separately reported). Mike Vee MD. Hematology/Medical Oncology [facility] [phone] CC: [facility] 05-20-2024 History of Present illness Narrative Chief Complaint Patient presents with Memory Loss Subjective Annelise is here today with his . They deny any decline in the patient's memory. She states he mostly has trouble with the days and dates. She reports a lot of forgetfulness. She denies any trouble with ADLs. She denies any hallucinations or wandering. He is still driving. He will occasionally need help with directions. He did have open heart surgery about 1 month ago. She is in cardiac rehab. He has gone multiple times. He is tolerating his medication He missed the month and year. Past Medical History: Diagnosis Date Arthritis CTS (carpal tunnel syndrome) GERD (gastroesophageal reflux disease) Heart abnormality Hyperlipidemia (CMS/HCC) Hypertension (CMS/HCC) Kidney disease Past Surgical History: Procedure Laterality Date CARDIAC SURGERY [facility] CARDIAC SURGERY 04/12/2024 open heart CORONARY ARTERY BYPASS GRAFT HERNIA REPAIR 1988 [facility] OTHER SURGICAL HISTORY ablation TRANSURETHRAL RESECTION OF PROSTATE Family History Problem Relation Name Age of Onset Diabetes Mother Heart disease Mother Coronary artery disease Mother Hypertension Mother Heart disease Father Coronary artery disease Father Heart disease Daughter Diabetes Daughter Coronary artery disease Sibling Diabetes Sibling Hypertension Sibling Social History Tobacco Use Smoking status: Never Smokeless tobacco: Never Substance Use Topics Alcohol use: Defer Allergies: Avelox [moxifloxacin], Ciprofloxacin, Fenoprofen, Iodinated contrast media, Naproxen, and Sulfa antibiotics General: No fever or chills HEENT: No nasal congestion or runny nose Pulmonary: No shortness of breath or cough Cardiovascular: No chest pain or palpitations GI: No nausea or vomiting : No dysuria or hematuria Musculoskeletal: No new aches or pains or muscle weakness Infectious: no recurrent fevers or infections Dermatologic: No rashes or skin lesions Neurologic: No new headaches or dizziness Vitals: 05/20/24 1439 BP: 122/77 Pulse: 50 Body mass index is 23.08 kg/m . weight: 143 lb Neurologic exam: Mental status: Awake, alert to person, place and time. Recent and remote memory are below normal Attention and concentration are normal but answers most questions and asks most questions Fund of knowledge is below expected HEENT: NC/AT Cranial nerves: CN II: Visual acuity is normal. Visual pierre full to confrontation. CN III, IV, : pupils equal round and reactive to light. Extraocular movements intact. No ptosis present. CN V: Facial sensation is normal. CN VII: Full and symmetric facial movement. CN VIII: Hearing is normal CN IX and X: Palate elevates symmetrically. CN XI: Shoulder shrug is normal bilaterally. CN XII: Tongue is midline without atrophy or fasciculation. Speech: Clear and fluent no aphasia or dysarthria Pronator drift: Negative bilateral upper extremity Coordination: Intact, no signs of dysmetria Good finger to nose and rapid alternating movements Sensory: Sensation is intact to light, temperature and vibratory touch throughout four extremities. Motor: LUE 5/5 RUE 5/5 LLE 5/5 RLE 5/5 Tone: Physiologic, no tremor, bradykinesia or rigidity DTR: Biceps, BR 2/4 Patellar 2/4 Gait: Normal to casual gait Romberg's Negative Review and summary of old records: EEG to assess brain waves= wnl CT of the brain showed some atrophy and small-vessel changes Folic acid was 11, B12 normal at 323, TSH 4.071- sent to PCP Neuropsych testing consistent with mild cognitive impairment Assessment/Plan Diagnoses and all orders for this visit: Late onset Alzheimer dementia, unspecified dementia severity, unspecified whether behavioral, psychotic, or mood disturbance or anxiety ([facility]) - memantine (Namenda) 10 MG tablet; Take 1 tablet (10 mg) by mouth in the morning and 1 tablet (10 mg) before bedtime. - memantine (Namenda) 5 MG tablet; 1 po q hs x 1 week , then 1 po bid x 1 week then 1 po q am and 2 po q hs for 1 week then 10mg pill bid - OT eval and treat; Future S/P CABG (coronary artery bypass graft) 89-year-old male with some memory loss Appears to be progressing some. He scored 21/30 on his MMSE today. He had previously been a 27/30. Seems like he has had some progression and maybe transforming into the earliest signs of an Alzheimer's type of dementia. He did also recently have CABG which at times can cause microemboli to the brain and that may have caused some issues also. Regardless at this time I do feel he needs to be started on some medication we will go ahead and start him on Namenda since he just had a CABG and we do not want any acetylcholine effects. We can consider down the road. They do ask about axonal powder they need to discuss whether a ketogenic state is okay with his kidneys with his PCP. This has lost favor recently and not been prescribed very much many patients it is too expensive and they do not stay on it. 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 His high TSH was sent to PCP for eval and treatment. Plan Add Namenda and titrate up to 10 mg [address] 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 Cardiovascular exercise. Mediterranean diet. 8 hours of sleep. 12 hour fasting through the night if able. The diagnosis was all discussed with the patient. All questions were answered and they agreed with the treatment plan. Patient will call if there are any new issues or questions. Pt has been fully educated on their diagnosis, lab results, treatment options, and follow up plan Return to clinic: 3-4 m documented in this encounter [facility] 04-30-2024 History of Present illness Narrative Patient: Annelise Olson : 1935 PCP: Miguel Lala MD SUBJECTIVE Patient presents today for follow up of skin lesion/neoplasm of unknown origin to the left foot Pt states that previous treatment of acid tx with some improvement Pt rates pain the pain on a 1-10 scale an intensity of 5 Pt presents today for followup. Discussion on prior visit of removal of lesion with flap closure. Patient presents today with a CC of elongated, thick nails. Pt states nails have been elongated and thick for many years and cause pain with ambulation in shoegear. Pt has tried previous treatment with minimal relief. Pt presents today for nail care and treatment. Allergies: Allergies Allergen Reactions Avelox [Moxifloxacin] Ciprofloxacin Fenoprofen Iodinated Contrast Media Naproxen Unknown Sulfa Antibiotics Past Medical History: Past Medical History: Diagnosis Date Arthritis CTS (carpal tunnel syndrome) GERD (gastroesophageal reflux disease) Heart abnormality Hyperlipidemia (CMS/HCC) Hypertension (CMS/HCC) Kidney disease Medications: Current Outpatient Medications: Apoaequorin (PREVAGEN EXTRA STRENGTH PO), Take by mouth, Disp: , Rfl: aspirin 81 MG EC tablet, Take 81 mg by mouth in the morning., Disp: , Rfl: atorvastatin (Lipitor) 40 MG tablet, Take 40 mg by mouth in the morning., Disp: , Rfl: cetirizine (ZyrTEC) 5 MG tablet, Take 10 mg by mouth in the morning., Disp: , Rfl: Farxiga 10 MG, Take 10 mg by mouth in the morning., Disp: , Rfl: finasteride (Proscar) 5 MG tablet, Take 5 mg by mouth in the morning. Do not crush, chew, or split.., Disp: , Rfl: furosemide (Lasix) 40 MG tablet, Take 40 mg by mouth in the morning., Disp: , Rfl: lisinopril 10 MG tablet, Take 10 mg by mouth Daily, Disp: , Rfl: nitroglycerin (Nitrostat) 0.4 MG SL tablet, Place 0.4 mg under the tongue every 5 (five) minutes if needed, Disp: , Rfl: omeprazole (PriLOSEC) [address] capsule, Take 40 mg by mouth, Disp: , Rfl: tamsulosin (Flomax) 0.4 MG 24 hr capsule, 1 capsule, Disp: , Rfl: traMADol (Ultram) 50 MG tablet, Take 50 mg by mouth, Disp: , Rfl: Social History: Social History Socioeconomic History Marital status: Spouse name: Not on file Number of children: Not on file Years of education: Not on file Highest education level: Not on file Occupational History Not on file Tobacco Use Smoking status: Never Smokeless tobacco: Never Vaping Use Vaping status: Unknown Substance and Sexual Activity Alcohol use: Defer Drug use: Defer Sexual activity: Defer Other Topics Concern Not on file Social History Narrative Not on file Social Drivers of Health Financial Resource Strain: Low Risk (04/12/2024) Received from [facility] Overall Financial Resource Strain (CARDIA) Difficulty of Paying Living Expenses: Not hard at all Food Insecurity: No Food Insecurity (04/12/2024) Received from [facility] Hunger Vital Sign Within the past 12 months, you worried that your food would run out before you got the money to buy more.: Never true Ran Out of Food in the Last Year: Not on file Transportation Needs: No Transportation Needs (04/12/2024) Received from [facility] Transportation In the past 12 months, has lack of transportation kept you from medical appointments or from getting medications?: No Lack of Transportation (Non-Medical): Not on file Physical Activity: Not on file Stress: Not on file Social Connections: Not on file Intimate Partner Violence: Unknown (04/12/2024) Received from [facility] Humiliation, Afraid, Rape, and Kick questionnaire Fear of Current or Ex-Partner: No Emotionally Abused: Not on file Physically Abused: Not on file Sexually Abused: Not on file Housing Stability: Low Risk (04/12/2024) Received from [facility] Housing Stability Vital Sign In the last 12 months, was there a time when you were not able to pay the mortgage or rent on time?: No Number of Times Moved in the Last Year: Not on file At any time in the past 12 months, were you homeless or living in a mcc (including now)?: No ROS: Gastrointestinal: denies abdominal pain, ulcers, or changes in appetite or bowel habits Musculoskeletal: Positive history of arthritis, denies loss of strength, pain to hip, knees, back positive history of hip replacement in the past Cardiovascular: denies CP, palpitations, with history of NJ in the past and being worked up currently for atrial fibrillation OBJECTIVE LE EXAM: DERM: Positive hair growth to b/l feet with good skin turgor noted. Negative openings in skin. Left sub 5th metatarsal has a round nummular lesion that measure at the base 0.4 cm x 0.4 cm Elongated thick yellow crumbly nails digits 1 through 10 VASC: Barely Palpable pedal pulsed b/l with warm to cool tibia to toes b/l NEURO: Gross sensation intact digits 1-10 and b/l feet ORTHO: +5/5 DF/PF/IN/EV right, +5/5 DF/PF/IN/EV left. 20 degrees inversion and 10 degrees eversion STJ b/l. Ankle ROM less than 10 degrees b/l. Positive pain on palpation to left foot lesion Plantar flexed left 5th metatarsal head with notable pes cavus foot type bilaterally Positive pain on palpation nails 1 through 10 XRAY: US: ASSESSMENT 1. Verruca plantaris 2. Foot pain, left 3. Pain due to onychomycosis of toenails of both feet PLAN Application of salinocaine acid medication to lesion/lesions located at left foot Informed pt of risks and benefits of procedure including high reoccurence rate, infection, pain and consent given. Application of DSD post procedure. Discussed proper foot care with patient today. Debride nails in length and thickness digits 1 through 10 Discussed conservative and surgical treatment options for patient today including postoperative time frame and surgical procedure in detail. Patient may continue with conservative treatments including [id number] anti-inflammatories and other treatments suggested today. Patient may want to be scheduled for surgical intervention in the near future. Discussed possible excision of neoplasm of skin with single lobe flap closure in an outpatient environment. Patient does see a stage settings painter Dr Ramirez and primary care provider is Dr. Camacho Raymundo. He would like Ultram postoperatively and will call in near future if would like to schedule surgical intervention Hair Foley DPM documented in this encounter [facility] 04-24-2024 Note Subjective Patient ID: Annelise Olson is a 89 y.o. male who presents for Hospital Follow-up and myocardial infarction. Good No pain, no chest pain or shortness of breath. Able to walk in the mall Not in cardiac rehab Recent NSST NJ due to subtotal L main stenosis to 0% IRENA, EF 45-50% Review of Systems Respiratory: Negative for cough, chest tightness, shortness of breath and wheezing. Cardiovascular: Negative for chest pain, palpitations and leg swelling. Gastrointestinal: Negative for blood in stool. Genitourinary: Negative for hematuria. Neurological: Negative for dizziness, syncope and light-headedness. Objective Visit Vitals BP 123/56 (BP Location: Left arm, Patient Position: Standing, BP Cuff Size: Adult) Pulse 51 Resp 12 Physical Exam Constitutional: Appearance: Normal appearance. He is normal weight. HENT: Head: Normocephalic and atraumatic. Abdominal: General: Abdomen is flat. Palpations: Abdomen is soft. Skin: General: Skin is warm and dry. Neurological: General: No focal deficit present. Mental Status: He is alert and oriented to person, place, and time. Mental status is at baseline. Psychiatric: Mood and Affect: Mood normal. Behavior: Behavior normal. Thought Content: Thought content normal. Judgment: Judgment normal. Assessment/Plan Mr. Olson is doing well after a very high risk non-ST elevation NJ due to a 99% L main coronary stenosis treated with a single drug eluting stent. Generally he is doing well, there is some pedal edema which is new. Will increase aldactone and refer for cardiac rehab. Recommend: Stop Farxiga due to cost Stop isosorbide, no chest pain Increase aldactone to 25 daily Start cardiac rehab at [facility] Diagnosis Plan 1. Paroxysmal atrial fibrillation (CMS/HCC) 2. NSTEMI (non-ST elevated myocardial infarction) (CMS/HCC) clopidogrel (Plavix) 75 mg tablet spironolactone (Aldactone) 25 mg tablet Basic metabolic panel 3. Typical atrial flutter (CMS/HCC) 4. Implantable loop recorder present Orders Placed This Encounter Procedures Basic metabolic panel Standing Status: Future Standing Expiration Date: 04/24/2025 Order Specific Question: Release to Patient Answer: Immediately No results found for this or any previous visit (from the past 36 hour(s)). No follow-ups on file. [facility] 04-22-2024 Evaluation note Diagnosis Onset Date Resolution Chronic HFrEF (heart failure with reduced ejection fraction) acute April 10:54am Chronic kidney disease acute De cember 2023 10:54am Hypercholesterolemia acute Dece 2023 10:54am Ischemic cardiomyopathy acute D ecember 2023 10:54am Mild cognitive impairment acute April 22, 2024 10:54am Primary hypertension acute Dece 2023 10:54am Subclinical hypothyroidism acute Uriah 18th, 2024 10:54am Chronic HFrEF (heart failure with reduced ejection fraction) acute May 21, 2024 10:27am Chronic kidney disease acute Ja ary 2024 10:27am Hypercholesterolemia acute 2024 10:27am Ischemic cardiomyopathy acute J anuary 2024 10:27am Macrocytosis acute May 10:27am Mild cognitive impairment acute May 21, 2024 10:27am Primary hypertension acute 2024 10:27am Subclinical hypothyroidism acute May 21, 2024 10:27am [facility] Work Phone: 1(638) 273-108512-18-2024 Evaluation note* Diagnosis Onset Date Resolution Status Admit Date Chronic HFrEF (heart failure with reduced ejection fraction) acute April 22, 2024 10:54am Chronic kidney disease acute De cem2023 10:54am Hypercholesterolemia acute Dece 2023 10:54am Ischemic cardiomyopathy acute D ecember 2023 10:54am Mild cognitive impairment acute April 22, 2024 10:54am Primary hypertension acute Dece 2023 10:54am Subclinical hypothyroidism acute April 22, 2024 10:54am Chronic HFrEF (heart failure with reduced ejection fraction) acute May 21, 2024 10:27am Chronic kidney disease acute [place] 2024 10:27am Hypercholesterolemia acute 2024 10:27am Ischemic cardiomyopathy acute J anuary 2024 10:27am Macrocytosis acute May 10:27am Mild cognitive impairment acute May 21, 2024 10:27am Primary hypertension acute 2024 10:27am Subclinical hypothyroidism acute May 21, 2024 10:27am Acute sinusitis noneactive June 18, 2024 10:36am Viral syndrome noneactive June 062024 10:36am [facility] Work Phone: 1(584) 146-367912-11-2024 NoteOccupational Therapy Name: Annelise Olson Date of : 1935 Today's Date: 04/15/24 Pt is unable to be seen for therapy at this time secondary to Discharging Check No Charge [facility] Discharge Summary Final Discharge Diagnosis: NSTEMI 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, EF 40 to 45%, NYHA II, Stage C Ischemic cardiomyopathy Primary hypertension History of atrial fibrillation/atrial flutter found on loop recorder,-on Xarelto Hyperlipidemia Hypertension Chronic kidney disease GERD Hypothyroidism Admission Diagnosis: NSTEMI (non-ST elevated myocardial infarction) ([facility]) [I21.4] Hospital course: Annelise Olson is an 88 y.o male with a past medical history of hypertension, ischemic cardiomyopathy, coronary artery disease s/p CAGB, heart failure with EF 40-45%, atrial fibrillation, chronic kidney disease, and GERD. He was transferred from [facility] with NSTEMI. He initially presented to the [place] emergency department (ED) with chest pain and shortness of breath. Labs revealed first troponin of 24.4 and second troponin of 152.5. Initial EKG showed ST depression in the lateral leads. He was given nitroglycerin, aspirin, and morphine with repeat EKG revealing improved ST depression. He was transferred to the [facility] ([facility]) on 04/12 for further cardiac workup and cardiac cath, as he was already established with the [facility] cardiology group. On admission, he denied chest pain and shortness of breath, but had bradycardia in the 50s. His metoprolol was held and his heart rate normalized by the following day. While at [facility], he had the following tests and procedures done in the hospital: Left cardiac cath with coronary angiography 04/14/2024: 99% distal L. Main branch stenosis into the large circumflex, reduced to 0% with single drug eluting stent. LAD and RCA are proximally occluded. LV end diastolic pressure was low at [address] head 04/13/2024: No evidence of acute intracranial abnormality. Chest XR 04/13/2024: No acute cardiopulmonary process. TTE 04/13/2024: EF 45-50%. Concentric cardiac remodeling. Mildly enlarged RV with reduced RV systolic function. Mild aortic valve regurgitation. ECGs: ECG 04/14/2024: Sinus rhythm with 1st degree AV block. Right bundle branch block. Cannot rule out inferior infarct. ECG 04/13/2024: Sinus rhythm with 1st degree AV block. Right bundle branch block. Possible inferior infarct. ECG 04/13/2024: Sinus bradycardia with sinus arrhythmia, 1st degree AV block. Right bundle branch block. T wave abnormality- consider inferior ischemia. His troponins were monitored and trended downwards during his stay, with the most recent at 0.42. Following the cardiac cath, cardiology started him on aspirin, plavix, and xarelto for one week and recommended he continue on the plavix and xarelto for one year. They started him on Lipitor 40 mg as well. After his cardiac cath procedure, the patient continued to have bleeding at the cath site on his left wrist. This cath site was monitored frequently and a TR band was placed to reduce bleeding. The bleeding stopped this morning and the patient can be discharged today with plans for outpatient cardiology follow-up. Surgical, Invasive or Diagnostic Procedures Done During Admission: Cardiac Cath Consultations During Admission: Cardiology Dear Dr. Dai DO, John is advised to follow up with you within 1-2 weeks. Items to follow up in ambulatory setting: None Follow-up with: Cardiology Scheduled appointments: Future Appointments Date Time Provider Department Center 04/24/2024 9:00 AM Mason Almeida MD [facility] [place] [facility] 06/16/2024 10:00 AM Camacho Mohamud MD [facility] Your medication list START taking these medications Instructions Last Dose Given Next Dose Due clopidogrel 75 mg tablet Commonly known as: Plavix Take 1 tablet (75 mg) by mouth in the morning. spironolactone 25 mg tablet Commonly known as: Aldactone Take 0.5 tablets (12.5 mg) by mouth in the morning for 98 doses. CHANGE how you take these medications Instructions Last Dose Given Next Dose Due aspirin 81 mg chewable tablet What changed: how much to take how to take this when to take this Chew 1 tablet (81 mg) in the morning for 7 days. rivaroxaban 15 mg tablet Commonly known as: Xarelto What changed: medication strength how much to take additional instructions Take 1 tablet (15 mg) by mouth daily with evening meal. CONTINUE taking these medications Instructions Last Dose Given Next Dose Due atorvastatin 40 mg tablet Commonly known as: Lipitor dapagliflozin propanediol 10 mg Commonly known as: Farxiga Take 1 tablet (10 mg) by mouth in the morning. ginkgo biloba 40 mg tablet isosorbide mononitrate ER 30 mg 24 hr tablet Commonly known as: Imdur Take 1 tablet (30 mg) by mouth in the morning. Do not crush or chew. krill oil [id number] mg capsule Generic drug: [id number] lisinopril 10 mg tablet metoprolol succinate XL 25 mg 24 hr tablet Commonly known as: Toprol- (more content not included)...[facility]12-11-2024 Note Attestation signed by Joseluis Manuel MD at 2024 9:30 AM By using the attestations below, the signing clinician agrees that I have read and verify that the documentation has been personally reviewed by me and ensure that the documentation accurately reflects the encounter. GC: I personally saw this patient on the day of the encounter, performed the chan portion(s) of the service and participated in the management and confirm the resident's documentation. Please note there may be an additional personal documentation from me. Additional Comments: Status post PCI left main and left circumflex due to NSTEMI Stable He will be on aspirin and Plavix DAPT He was previously on Xarelto His dose should be 15 mg once daily which is the dose used together with antiplatelet therapies based on the [place] AF trial Aspirin can be dropped in 1 week He will be on Plavix for coronary stent and Xarelto long-term for A-fib history Other meds for HFrEF and HTN adjusted Stable for discharge home Cardiology Progress Note Subjective Subjective: Patient was seen and examined at bedside in the morning, the patient was alert and oriented, the patient denied any chest pain, shortness of breath, palpitation, the patient does not have any acute event overnight, left radial access did not show any sign of bleeding or any hematoma. The plan was discussed with the patient and his on bedside Objective Current Facility-Administered Medications: acetaminophen (Tylenol) tablet 650 mg, 650 mg, oral, q6h PRN, [facility] aspirin chewable tablet 81 mg, 81 mg, oral, Daily with breakfast, [facility], 81 mg at 04/14/24927 atorvastatin (Lipitor) tablet 40 mg, 40 mg, oral, Daily before evening meal, [facility], 40 mg at 04/14/241738 clopidogrel (Plavix) tablet 75 mg, 75 mg, oral, Daily, Radha Bray MD, 75 mg at 04/14/242111 dapagliflozin propanediol (Farxiga) tablet 10 mg, 10 mg, oral, Daily, Lalit Lindsay MD, 10 mg at 04/13/24936 [Held by provider] furosemide (Lasix) tablet 40 mg, 40 mg, oral, q AM, [facility] isosorbide mononitrate ER (Imdur) 24 hr tablet 30 mg, 30 mg, oral, Daily, [facility], 30 mg at 04/14/24927 lisinopril tablet 10 mg, 10 mg, oral, Daily, Samantha Castro MD melatonin tablet 5 mg, 5 mg, oral, Nightly PRN, [facility] metoprolol succinate XL (Toprol-XL) 24 hr split tablet 12.5 mg, 12.5 mg, oral, Daily, [facility], 12.5 mg at 04/14/24927 nitroglycerin (Nitrostat) SL tablet 0.4 mg, 0.4 mg, sublingual, q5 min PRN, [facility], 0.4 mg at 04/13/242043 ondansetron ODT (Zofran-ODT) disintegrating tablet 4 mg, 4 mg, oral, q8h PRN OR ondansetron HCl (PF) (Zofran) injection 4 mg, 4 mg, intravenous, q6h PRN, Rebekah Morales CNP Oxygen Therapy, , inhalation, Continuous, [facility], Oxygen Off at 04/12/24 1630 pantoprazole (ProtoNix) EC tablet 40 mg, 40 mg, oral, Daily, Rebekah Morales CNP, 40 mg at 04/15/24 0612 rivaroxaban (Xarelto) tablet 15 mg, 15 mg, oral, Daily with evening meal, Samantha Castro MD, 15 mg at 04/14/24 1739 sennosides-docusate sodium (Pippa-Colace) 8.6-50 mg per tablet 1 tablet, 1 tablet, oral, Daily PRN, Rebekah Morales [employer] Insert peripheral IV, , , Once AND Saline lock IV, , , Once AND sodium chloride flush 10 mL, 10 mL, intravenous, q8h PRN, Rebekah Morales CNP spironolactone (Aldactone) split tablet 12.5 mg, 12.5 mg, oral, Daily, Lalit Lindsay MD, 12.5 mg at 04/14/24 1419 Objective: Patient Vitals for the past 24 hrs: BP Temp Temp src Pulse Resp SpO2 Weight 04/15/24 0415 118/57 36.7 ???C (98 ???F) Temporal 55 15 94 % 56.2 kg (123 lb 14.4 oz) 04/15/24 0005 118/63 -- -- 62 18 95 % -- 04/14/24 2025 127/68 37.4 ???C (99.3 ???F) Temporal 70 16 97 % -- 04/14/24 1651 138/67 36.8 ???C (98.2 ???F) Temporal -- 20 100 % -- 04/14/24 0928 126/62 -- -- -- -- -- -- Physical Examination: Physical Exam Constitutional: General: He is not in acute distress. Appearance: He is not ill-appearing. Comments: Frail HENT: Head: Normocephalic and atraumatic. Cardiovascular: Rate and Rhythm: Normal rate and regular rhythm. Heart sounds: No murmur heard. Pulmonary: Breath sounds: Normal breath sounds. No wheezing or rales. Musculoskeletal: Cervical back: Normal range of motion and neck supple. Right lower leg: No edema. Left lower leg: No edema. Skin: General: Skin is warm and dry. Capillary Refill: Capillary refill takes less than 2 seconds. Neurological: Mental Status: He is oriented to person, place, and time. Mental status is at baseline. Relevant Lab Results Encounter Date: 04/12/24 ECG 12 lead Result Value Ventricular Rate 66 Atrial Rate 66 FL Interval 336 QRS DURATIO (more content not included)...[facility] 04-14-2024 NoteSpiritual Care Note Patient name: Annelise Olson Age: 88 y.o. Room: [facility]310- 04/14/24 1528 Clinical Encounter Type Visited With Patient;Family;Spouse (Pt, , son (daughter in law), daughter.t) Type of Visit Referral Last Visit Date 04/14/24 Referral From Family Patient Spiritual Care Encounters Spiritual Care Assessment Mild anxiety;Frustrated (Son was in hallway and asked who he might talk with to be able to stay the night with his father who is experiencing some confusion.) Pastoral Intervention Spiritual support;Prayers;Emotional support;Other (Trapeze Performer met son in hallway and offered support. Listened to family's concern and called Pt Advocate--left message. Called AC Yvette--made family's request known to AC. Gave family Pt Advocate # and prayed with family. Visited pt & in room, prayed.) Response Appreciative Pastoral Care Notes [facility]12-10-2024 NoteCase was discussed with the GERONIMO on 04/12/2024. I agree with the history, physical, assessment, and plan of care. I discussed the findings and therapeutic plan. I agree with the documentation, except for any updates below. Carol Cedillo, [facility]12-10-2024 Note As the teaching physician, I have personally performed or re-performed the history of present illness, physical exam and medical decision-making activities of the encounter and verified the medical student's documentation. I made pertinent changes as necessary to ensure accurate documentation. There may be additional comments below. 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 No Patient's goal for discharge return johanny Does the patient need discharge transport arranged? No (family is transport) discharge planning: to Home with family - Occupational Therapy recommending discharge to Home - Physical [facility] Note Attestation signed by Joseluis Manuel MD at 04/14/2024 3:20 PM By using the attestations below, the signing clinician agrees that I have read and verify that the documentation has been personally reviewed by me and ensure that the documentation accurately reflects the encounter. GC: I personally saw this patient on the day of the encounter, performed the chan portion(s) of the service and participated in the management and confirm the resident's documentation. Please note there may be an additional personal documentation from me. Additional Comments: NSTEMI s/p PCI LM and LCX On DAPT: aspirin and plavix; stop aspirin in 1 week On Xarelto 15 mg daily (PIONEER AF dose for Afib and CAD/stent) On statin and beta catracho HTN meds adjusted and optimized; spironolactone added Ok to stop lasix Left radial access site looks ok, no hematoma Stable for discharge home on Sat04/15/[address] Almeida, at [facility] heart and vascular clinic Cardiology Progress Note Subjective Subjective: Patient seen and: He is sleepy but not disoriented. RN team mentioned that the patient was confused towards snout puller. They mentioned a left radial access using, treated with reinflating TR band. Eventually, TR band was removed and a pressure dressing was placed. RN team is kindly counseled on sundowning/delirium in the setting of hospital stay. Otherwise management is as per below. Objective Current Facility-Administered Medications: acetaminophen (Tylenol) tablet 650 mg, 650 mg, oral, q6h PRN, Rebekah Morales CNP aspirin chewable tablet 81 mg, 81 mg, oral, Daily with breakfast, Rebekah Morales CNP, 81 mg at 04/13/24 0757 atorvastatin (Lipitor) tablet 40 mg, 40 mg, oral, Daily before evening meal, Rebekah Morales CNP, 40 mg at 04/13/24 1716 clopidogrel (Plavix) tablet 75 mg, 75 mg, oral, Daily, Radha Bray MD [Held by provider] dapagliflozin propanediol (Farxiga) tablet 10 mg, 10 mg, oral, Daily, Rebekah Morales CNP, 10 mg at 04/13/24 0937 [Held by provider] furosemide (Lasix) tablet 40 mg, 40 mg, oral, q AM, Rebekah Morales CNP isosorbide mononitrate ER (Imdur) 24 hr tablet 30 mg, 30 mg, oral, Daily, Rebekah Morales CNP, 30 mg at 04/13/24 0937 [] lactated Ringer's infusion, 250 mL/hr, intravenous, Continuous, Stopped at 04/14/24 0541 FOLLOWED BY lactated Ringer's infusion, 150 mL/hr, intravenous, Continuous, Radha Bray MD, Last Rate: 150 mL/hr at 04/14/24 0505, 150 mL/hr at 04/14/24 0505 [Held by provider] lisinopril tablet 10 mg, 10 mg, oral, Daily, Rebekah Morales CNP melatonin tablet 5 mg, 5 mg, oral, Nightly PRN, Rebekah Morales CNP metoprolol succinate XL (Toprol-XL) 24 hr split tablet 12.5 mg, 12.5 mg, oral, Daily, Rebekah Morales CNP nitroglycerin (Nitrostat) SL tablet 0.4 mg, 0.4 mg, sublingual, q5 min PRN, [facility], 0.4 mg at 04/13/242043 ondansetron ODT (Zofran-ODT) disintegrating tablet 4 mg, 4 mg, oral, q8h PRN OR ondansetron HCl (PF) (Zofran) injection 4 mg, 4 mg, intravenous, q6h PRN, [facility] Oxygen Therapy, , inhalation, Continuous, [facility], Oxygen Off at 04/12/24 1630 pantoprazole (ProtoNix) EC tablet 40 mg, 40 mg, oral, Daily, [facility], 40 mg at 04/14/24 0619 rivaroxaban (Xarelto) tablet 15 mg, 15 mg, oral, Daily with evening meal, Samantha Castro MD sennosides-docusate sodium (Pippa-Colace) 8.6-50 mg per tablet 1 tablet, 1 tablet, oral, Daily PRN, [facility] Insert peripheral IV, , , Once AND Saline lock IV, , , Once AND sodium chloride flush 10 mL, 10 mL, intravenous, q8h PRN, [facility] Objective: Patient Vitals for the past 24 hrs: BP Temp Temp src Pulse Resp SpO2 Weight 04/14/24 0800 -- 36.5 ???C (97.7 ???F) Temporal -- 16 -- -- 04/14/24 0700 161/85 -- -- 75 17 -- -- 04/14/24 0600 148/65 -- -- 62 13 -- -- 04/14/24 0541 -- -- -- -- -- -- 60.8 kg (134 lb 0.6 oz) 04/14/24 0500 (!) 118/99 -- -- 71 25 -- -- 04/14/24 0400 141/62 36.8 ???C (98.2 ???F) -- 67 15 99 % -- 04/14/24 0315 141/69 -- -- 75 16 -- -- 04/14/24 0301 149/81 -- -- 61 14 -- -- 04/14/24 0300 149/81 -- -- 58 17 -- -- 04/14/24 0245 158/61 -- -- 60 20 -- -- 04/14/24 0200 151/74 -- -- 67 14 100 % -- 04/14/24 0146 150/78 -- -- 66 18 -- -- 04/14/24 0118 -- -- -- -- -- 98 % -- 04/14/24 0116 130/70 -- -- 71 18 98 % -- 04/14/24 0012 -- -- -- -- -- 98 % -- 04/14/24 0011 131/69 36.7 ???C (98.1 ???F) Temporal 97 18 97 % -- 04/13/24 2330 141/72 -- -- 98 24 100 % -- 04/13/24 2325 129/62 -- -- 75 20 100 % -- 04/13/24 2320 116/66 -- -- 80 22 100 % -- 04/13/24 2315 120/90 -- -- 103 19 100 % -- 04/13/24 2308 137/55 -- -- 66 25 -- -- 04/13/24 2303 140/65 -- -- 74 22 -- -- 04/13/24 2210 136/64 -- -- 83 25 -- -- 1 (more content not included)...[facility]12-10-2024 [facility] Medicine Daily Progress Note - 04/14/2024 8:01 AM; Room: 3101/3101-01 Admission: 04/12/2024 4:03 PM; Length of stay: 2 days THE HOSPITALIST TEAM PREFERS TO USE [employer] CHAT FOR NON-URGENT COMMUNICATION 7AM-7PM. IF I DO NOT RESPOND WITHIN 20 MINUTES OR URGENT MATTERS, PLEASE CALL THROUGH THE MANAGER QUALITY COMPLIANCE. FROM 7PM-7AM, PLEASE PAGE [phone](COVR). Code Status: Full Code Barriers to Discharge: NSTEMI, elevated troponins Expected Discharge Date: Discharge Destination: home Overview Patient is seen for evaluation and management of NSTEMI with chest pain and elevated troponins. Subjective No acute overnight events. Patient is resting comfortably in bed and in no distress. He has continued bleeding from his left wrist following cardiac cath this morning, but no other concerns regarding the procedure. Denies chest pain, back pain, and shortness of breath. Physical Exam Visit Vitals BP 161/85 Pulse 75 Temp 36.8 ???C (98.2 ???F) Resp 17 Intake/Output Summary (Last 24 hours) at 04/14/2024 0801 Last data filed at 04/14/2024 0541 Gross per 24 hour Intake 890 ml Output 105 ml Net 785 ml Physical Exam Cardiovascular: Rate and Rhythm: Normal rate and regular rhythm. Pulses: Normal pulses. Heart sounds: Normal heart sounds. Pulmonary: Effort: Pulmonary effort is normal. Breath sounds: Normal breath sounds. Musculoskeletal: Right lower leg: No edema. Left lower leg: No edema. Skin: General: Skin is warm. Comments: Bleeding at left wrist following cardiac cath procedure. Neurological: General: No focal deficit present. Mental Status: He is alert and oriented to person, place, and time. Psychiatric: Mood and Affect: Mood normal. Behavior: Behavior normal. Thought Content: Thought content normal. Judgment: Judgment normal. Estimated body mass index is 21.63 kg/m??? as calculated from the following: Height as of this encounter: 1.676 m (5' 6 ). Weight as of this encounter: 60.8 kg (134 lb 0.6 oz). 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 Main branch stenosis into the large circumflex, reduced to 0% with single drug eluting stent. LAD and RCA are proximally occluded. LV end diastolic pressure was low at [address] head 04/13/2024: No evidence of acute intracranial abnormality. Chest XR 04/13/2024: No acute cardiopulmonary process. TTE 04/13/2024: EF 45-50%. Concentric cardiac remodeling. Mildly enlarged RV with reduced RV systolic function. Mild aortic valve regurgitation. ECGs: ECG 04/14/2024: Sinus rhythm with 1st degree AV block. Right bundle branch block. Cannot rule out inferior infarct. ECG 04/13/2024: Sinus rhythm with 1st degree AV block. Right bundle branch block. Possible inferior infarct. ECG 04/13/2024: Sinus bradycardia with sinus arrhythmia, 1st degree AV block. Right bundle branch block. T wave abnormality- consider inferior ischemia. Plan: Continue trending troponins: trending downwards, most recent 0.42 Cardiology: Cath done today. Repeat ECG done today. Aspirin, plavix, and xarelto for one week then plavix and xarelto for one year. Start high intensity statin therapy. Continue frequent cath site checks. Nitroglycerin for chest pain. Cardiac diet, n.p.o. after midnight As needed oxygen to maintain SpO2 greater 92%. Hold Lasix and lisinopril. All medications reviewed, continues with aspirin 81 mg daily, atorvastatin 40 mg daily, Farxiga 10 mg daily, isosorbide 30 mg daily, nitroglycerin sublingual tablets as needed, Protonix. VTE Prophylaxis: Continuous heparin drip Scheduled Meds aspirin, 81 mg, oral, Daily with breakfast atorvastatin, 40 mg, oral, Daily before evening meal clopidogrel, 75 mg, oral, Daily [Held by provider] dapagliflozin propanediol, 10 mg, oral, Daily [Held by provider] furosemide, 40 mg, oral, q AM isosorbide mononitrate ER, 30 mg, oral, Daily [Held by provider] lisinopril, 10 mg, oral, Daily metoprolol succinate XL, 12.5 mg, oral, Daily Oxygen Therapy, , inhalation, Continuous pantoprazole, 40 mg, oral, Daily rivaroxaban, 15 mg, oral, Daily with evening meal lactated Ringer's, 150 mL/hr, Last Rate: 150 mL/hr (04/14/24 0505) Pertinent Investigations Hematology: Results from last 7 days Lab Units 04/13/24 1926 04/13/24 0310 WBC AUTO 10*3/uL 6.60 5.22 HEMOGLOBIN g/dL 16.0 14.3 HEMATOCRIT % 46.8 41.7 MCV fL 101.3* 101. (more content not included)...[facility]12-09-2024 Note As the teaching physician, I have personally performed or re-performed the history of present illness, physical exam and medical decision-making activities of the encounter and verified the medical student's documentation. I made pertinent changes as necessary to ensure accurate documentation. There may be additional comments below. [facility]12-09-2024 Note 04/13/24 1426 Admission Assessment Questions Verify insurance with patient Yes Do you understand medical disease or what brought you into the hospital? Yes Who is your current PCP? Miguel Lala, DO Can I schedule a follow up appointment for you at the time of discharge? Yes Do you understand why you are taking your current medications? Yes Are you taking your medications as prescribed? Yes Did patient provide teach back? No Pharmacy Bedside Delivery Status Interested Does the patient have a top case assembler assigned to them through their insurance? No Living Arrangement (Current/Prior to Hospitalization) Private residence (lives with , 2 steps to get in, 2 story) Does the patient have history of HHC or SNF? No Assistive Device Raised toilet seat Patient's goal for discharge home Was patient reminded that goal for discharge is 11am? Yes Does the patient have transportation at discharge? Yes Type of Residence Private residence Is PT/OT appropriate? Yes Is PT/OT ordered? Yes Is SW consult appropriate? Yes Is SW consult ordered? Yes Do you understand the benefits of MyChart? Yes Were you able to send link and activate [facility]Chart? [facility] NoteAdult Nutrition Assessment: Name: Annelise Olson Date: 1935 Date of Visit: 04/13/24 Admission Dx: NSTEMI (non-ST elevated myocardial infarction) (CMS/HCC) [I21.4] Reason for assessment: high risk (BMI for age, HF) Information obtained from: patient, family, medical record, and nursing ( and son at bedside) Past Medical History: Diagnosis Date Abnormal ECG Arrhythmia Atrial flutter (CMS/HCC) Coronary artery disease Heart valve disease Hyperlipidemia Hypertension Ischemic cardiomyopathy Current Medications: aspirin, 81 mg, oral, Daily with breakfast atorvastatin, 40 mg, oral, Daily before evening meal dapagliflozin propanediol, 10 mg, oral, Daily [Held by provider] furosemide, 40 mg, oral, q AM isosorbide mononitrate ER, 30 mg, oral, Daily [Held by provider] lisinopril, 10 mg, oral, Daily metoprolol succinate XL, 12.5 mg, oral, Daily Oxygen Therapy, , inhalation, Continuous pantoprazole, 40 mg, oral, Daily [Held by provider] rivaroxaban, 20 mg, oral, Daily with evening meal heparin, 0-28 Units/kg/hr, Last Rate: 13 Units/kg/hr (04/13/24 1026) Labs: 0 Lab Value Date/Time BUN 25 04/13/2024309 CREATININE 1.26 04/13/2024 031 NA 135 (L) 04/13/2024309 K 3.7 04/13/2024309 MG 2.1 04/13/2024309 HGB 14.3 04/13/2024309 WBC 5.22 04/13/2024 0310 Other Pertinent Labs: Elevated troponin I/O: Intake/Output Summary (Last 24 hours) at 04/13/2024 1430 Last data filed at 04/12/2024 1834 Gross per 24 hour Intake 367.02 ml Output -- Net 367.02 ml Allergies: Allergies Allergen Reactions Naproxen Unknown Nutrition Problems: Swallowing Assessment: Pt denies issues swallowing Mouth: Pt denies difficulty chewing Abdominal Assessment: Last BM was 3 days ago, denies N/V/C/D Appetite: good Cognition: A/O x4 Geriatric feeding skills: Able to feed self Skin: intact Other: EF 45-50% Nutrition Data/Clinical Indicators of Nutrition Status: Height: 167.6 cm (5' 6 ) Weight: 61.5 kg (135 lb 9.3 oz) BMI (Calculated): 21.89 Wt change: Pt denies recent wt changes. Per [facility] records, wt has ranged 135-148 lbs over past 2 years (relatively stable). Changes noted are likely fluid related. Wt Readings from Last 10 Encounters: 04/13/24 61.5 kg (135 lb 9.3 oz) 03/10/24 67.1 kg (148 lb) 01/14/24 65.3 kg (144 lb) 12/04/23 62.6 kg (138 lb) 07/12/23 67.1 kg (148 lb) 05/14/23 65.3 kg (144 lb) 12/19/22 63.1 kg (139 lb 3.2 oz) 10/31/22 64.3 kg (141 lb 12.8 oz) 05/01/22 66.2 kg (146 lb) 01/02/22 67.1 kg (148 lb) IBW: 64.5 kg Low BMI: <22 if >/= 70 yrs old (non-severe GLIM criteria) Nutrition Assessment: Pt lives at home with his . They do their won grocery shopping and meal preparation. Pt reports good appetite and denies any changes to his intakes. He avoids adding salt to his food and also tries to follow a low fat diet. He has a scale at home, but does not monitor wt daily. Dietary Orders (From admission, onward) Start Ordered 04/13/24 1059 Regular Diet Heart Healthy/HTN, CABG,Stroke, (2gNA, low fat, low cholesterol) Diet effective now Question Answer Comment Room Service? Yes Fat restriction: Heart Healthy/HTN, CABG,Stroke, (2gNA, low fat, low cholesterol) 04/13/24 1058 Meal Intake: 100% of lunch tray observed to be consumed Nutrition Risk: Low Malnutrition Assessment: Patient at risk for malnutrition according to hospital criteria, but does not meet the clinical characteristics per the Academy of Nutrition and Dietetics, and the [place] [employer] of Enteral and Parenteral Nutrition to support the diagnosis of malnutrition. Nutrition Education: Diet literature: Verbal (pt + family) Expected compliance/patient understanding: Good -Read labels and avoid items with >300 mg Na/serving -Daily goal <2000 mg Na -Daily wt monitoring (notify MD if gain of 2-3 lb overnight or 5 lb in 1 wk observed) Teach back method: Pt verbalized understanding Time spent: 15 minutes Treatment Plan: Diet: continue with cardiac restriction Daily wt monitoring Goals: Nutrition Goals: intake > 75% meals, wt maintenance, and compliance w/ MNT Contact the dietitian via [employer] chat 8A-4P Saturday through Saturday or call extension [phone]. For weekends & holidays, the dietitian can be reached via pager [phone] from 9A-3P. Unable to respond to [employer] chat messages on Saturday & .[facility]12-09-2024 NotePhysical Therapy Physical Therapy Evaluation Patient Name: Annelise Olson : 1935 Today's Date: 04/13/2024 Patient is a 88 y/o male presenting from OS for evaluation and management of NSTEMI. Arrived to OSH with chest pain and elevated troponin. This afternoon, patient tolerated evaluation and mobility assessment well. Demonstrated independent transfers and ability to ambulate ~90 feet independently without BUE support. Mild SOB though saturation WNL >95% upon return to room. No further skilled PT needs, will plan to sign off at this time. Safe for discharge to home. Discharge: Home General Subjective: RN approved PT session and OOB activity this date. In bed upon arrival, agreeable to session. Upon completion, patient left in the chair with call light within reach, family present. 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 use of anticoagulant therapy Osteoarthritis of hip Osteoarthritis of knee Peripheral venous insufficiency Poor urinary stream Primary hypertension Spondylosis of lumbar spine Urge incontinence of urine 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 Mitral valve insufficiency and aortic valve insufficiency Ischemic cardiomyopathy Chronic HFrEF (heart failure with reduced ejection fraction) ([facility]/HCC) Fatigue H/O atrial flutter Mild cognitive impairment Pain in right knee SNHL (sensorineural hearing loss) Stage 3a chronic kidney disease ([facility]/HCC) Atrial tachycardia ([facility]/HCC) Medicare annual wellness visit, subsequent Subclinical hypothyroidism Paroxysmal atrial fibrillation ([facility]/HCC) NSTEMI (non-ST elevated myocardial infarction) ([facility]) Past Medical History: Diagnosis Date Abnormal ECG Arrhythmia Atrial flutter ([facility]/HCC) Coronary artery disease Heart valve disease Hyperlipidemia Hypertension Ischemic cardiomyopathy Past Surgical History: Procedure Laterality Date ATRIAL ABLATION SURGERY 06/13/2020 CARDIOVERSION 04/07/2019 HIP SURGERY 05/06/2012 Precautions Precautions Medical Precautions: telemetry, IV Pain Pain Assessment Pain Assessment: No/denies pain Cognition Cognition Overall Cognitive Status: Within Functional Limits Arousal/Alertness: Appropriate responses to stimuli Orientation Level: Oriented X4 Following Commands: Follows all commands and directions without difficulty General Assessment General Assessment Hearing: Intact Hand Dominance: Left Home Living Home Living Type of Home: House Lives With: Spouse Home Adaptive Equipment: None (Reports they have access to a cane and RW that is in their attic, but used to be his mother in laws and they have never used it) Home Layout: Two level, Bed/bath upstairs, Full bath main level Home Access: Stairs to enter with rails Entrance Stairs-Rails: Both Entrance Stairs-Number of Steps: 2 Bathroom Shower/Tub: Walk-in shower Bathroom Equipment: None Prior Level of Function Prior Function Level of [place]: Independent with ADLs and functional transfers, Independent with homemaking with ambulation Prior Functional Mobility: Independent without device ADL Assistance: Independent Homemaking Assistance: Independent Vision Basic Assessment Vision - Basic Assessment Current Vision: No visual deficits Activity Tolerance Activity Tolerance Endurance: Stage III Activity Tolerance Comments: Room air General Assessments Activity Tolerance Endurance: Stage III Activity Tolerance Comments: Room air Sensation Light Touch: No apparent deficits Coordination Movements are Fluid and Coordinated: Yes Postural Control Postural Control: Within Functional Limits Static Sitting Balance Static Sitting-Balance Support: Feet supported Static Sitting-Level of Assistance: Independent Dynamic Sitting Balance Dynamic Sitting-Balance Support: Feet supported, Right upper extremity supported, Left upper extremity supported Dynamic Sitting-Balance: Forward lean, Lateral lean Dynamic Sitting Balance-Level of Assistance: Independent Static Standing Balance Static Standing-Balance Support: No upper extremity supported Static Standing-Level of Assistance: Independent Dynamic Standing Balance Dynamic Standing-Balance Support: No upper extremity supported Dynamic Standing Balance-Level of Assistance: Independent Functional Assessments Bed Mobility Bed Mobility: No (In chair upon arrival, returning to chair upon completion) Transfers Transfer: Yes Transfer 1 Technique 1: Sit to stand, St (more content not included)...[facility]12-09-2024 NoteOccupational Therapy Occupational Therapy Evaluation Patient Name: Annelise Olson : 1935 Today's Date: 04/13/2024 Time In: 1022 Time Out: 1041 Annelise Olson is an 88 y.o. male who came from outside hospital with STEMI. Chest pain, rule out acute coronary syndrome Acute on chronic kidney disease, General Subjective: friendly and cooperative, / son present 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 Gastroesophageal reflux disease with esophagitis Hematuria History of duodenal ulcer Increased frequency of urination intermediate current use of anticoagulant therapy Osteoarthritis of hip Osteoarthritis of knee Peripheral venous insufficiency Poor urinary stream Primary hypertension Spondylosis of lumbar spine Urge incontinence of urine 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 Mitral valve insufficiency and aortic valve insufficiency Ischemic cardiomyopathy Chronic HFrEF (heart failure with reduced ejection fraction) ([facility]) Fatigue H/O atrial flutter Mild cognitive impairment Pain in right knee SNHL (sensorineural hearing loss) Stage 3a chronic kidney disease ([facility]) Atrial tachycardia ([facility]) Medicare annual wellness visit, subsequent Subclinical hypothyroidism Paroxysmal atrial fibrillation ([facility]) NSTEMI (non-ST elevated myocardial infarction) ([facility]) Past Medical History: Diagnosis Date Abnormal ECG Arrhythmia Atrial flutter ([facility]) Coronary artery disease Heart valve disease Hyperlipidemia Hypertension Ischemic cardiomyopathy Past Surgical History: Procedure Laterality Date ATRIAL ABLATION SURGERY 06/13/2020 CARDIOVERSION 04/07/2019 HIP SURGERY 05/06/2012 Precautions Precautions Medical Precautions: fall risk Pain Pain Assessment Pain Score: 2 (left lower lateral rib area) Cognition Cognition Overall Cognitive Status: Within Functional Limits General Assessment General Assessment Hearing: (wfl) Hand Dominance: Left Home Living Home Living Type of Home: House Lives With: Spouse Home Adaptive Equipment: None Home Layout: Two level, Bed/bath upstairs, Full bath main level Home Access: Stairs to enter with rails (2) Bathroom Shower/Tub: Walk-in shower Prior Level of Function Prior Function Level of [place]: Independent with ADLs and functional transfers, Independent with homemaking with ambulation Prior Functional Mobility: Independent without device Prior IADLs IADL History Homemaking Responsibilities: Yes Static Sitting Balance Dynamic Sitting Balance Dynamic Sitting Balance Dynamic Sitting Balance-Level of Assistance: Independent Static Standing Balance Static Standing Balance Static Standing-Level of Assistance: Close supervision Dynamic Standing Balance ADL ADL LE Dressing Assistance: Stand by Bed Mobility Transfers Transfers Transfer: (indep supine to sit EOB, SBA : sit to stand , 40 feet X2 and sit into chair) Objective General Assessments Activity Tolerance Endurance: Stage III Vision - Basic Assessment Current Vision: No visual deficits Sensation Light Touch: No apparent deficits Coordination Movements are Fluid and Coordinated: Yes Extremity Assessments RUE Assessment RUE Assessment: (reports no issues with UB / MMT deferred) Outcome Assessments AM-PAC 6 Clicks Putting on and taking off regular lower body clothing?: A Little (Min Assist/Contact Guard/Supervision) Bathing(Including washing,rinsing,drying)?: A Little (Min Assist/Contact Guard/Supervision) Toileting, which includes using the toilet,bedpan,or urinal?: A Little (Min Assist/Contact Guard/Supervision) Putting on and taking off regular upper body clothing?: None (Independent) Taking care of personal grooming such as brushing teeth?: None (Independent) Eating meals?: None (Independent) Total Score OT [facility]: 21 Assessment/Plan OT Assessment OT Impairments: Decreased ADL status, Decreased endurance, Decreased functional mobility OT 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 possible need for emergency alert) Plan Level of assist: 1 assist Treatment Interventions: ADL retraining, Functional transfer training, Endurance training, Patient/family training, Neuromuscular reeducation, Compensatory technique education OT Plan: Skilled OT OT Frequency: 3 times per week until discharge & PRN (more content not included)...[facility]12-09-2024 Note Occupational Therapy Name: Annelise Olson Date of : 1935 Today's Date: 04/13/24 Pt is unable to be seen for therapy at this time secondary to off floor for ECHO . Will check back and complete therapy session as appropriate. Check No Charge Time attempted: [id number] Medicine Daily Progress Note - 04/13/2024 8:02 AM; Room: 3101/3101-01 Admission: 04/12/2024 4:03 PM; Length of stay: 1 days THE HOSPITALIST TEAM PREFERS TO USE [facility] FOR NON-URGENT COMMUNICATION 7AM-7PM. IF I DO NOT RESPOND WITHIN 20 MINUTES OR URGENT MATTERS, PLEASE CALL THROUGH THE MANAGER QUALITY COMPLIANCE. FROM 7PM-7AM, PLEASE PAGE [phone](COVR). Code Status: Full Code Barriers to Discharge: NSTEMI, elevated troponins Expected Discharge Date: TBD Discharge Destination: home Overview Patient is seen for evaluation and management of NSTEMI with chest pain and elevated troponins. Subjective No acute overnight events. Patient is resting comfortably in bed and in no distress. Patient reports left back pain near his shoulder blades that started overnight. Denies chest pain and shortness of breath. Physical Exam Visit Vitals BP 109/53 Pulse 53 Temp 36.4 ???C (97.5 ???F) (Temporal) Resp 16 Intake/Output Summary (Last 24 hours) at 04/13/2024 0802 Last data filed at 04/12/2024 1834 Gross per 24 hour Intake 367.02 ml Output -- Net 367.02 ml Physical Exam Cardiovascular: Rate and Rhythm: Normal rate and regular rhythm. Pulses: Normal pulses. Heart sounds: Normal heart sounds. Pulmonary: Effort: Pulmonary effort is normal. Breath sounds: Normal breath sounds. Musculoskeletal: Right lower leg: No edema. Left lower leg: No edema. Skin: General: Skin is warm. Neurological: General: No focal deficit present. Mental Status: He is alert and oriented to person, place, and time. Psychiatric: Mood and Affect: Mood normal. Behavior: Behavior normal. Thought Content: Thought content normal. Judgment: Judgment normal. Estimated body mass index is 21.88 kg/m??? as calculated from the following: Height as of this encounter: 1.676 m (5' 6 ). Weight as of this encounter: 61.5 kg (135 lb 9.3 oz). Active Inpatient Problems Principal Problem: NSTEMI (non-ST elevated myocardial infarction) ([facility]) Assessment and Plan NSTEMI Chest pain, rule out acute coronary syndrome Coronary disease status post CABG in the Systolic Chronic heart failure, not in exacerbation, EF 40 to 45% Ischemic cardiomyopathy Primary hypertension History of atrial fibrillation/atrial flutter found on loop recorder,-on Xarelto Hyperlipidemia Acute on chronic kidney disease, stage IIIa GERD Hypothyroidism Imaging: TTE 04/13/2024: EF 45-50%. Concentric cardiac remodeling. Mildly enlarged RV with reduced RV systolic function. Mild aortic valve regurgitation. ECG 04/13/2024: Sinus bradycardia with sinus arrhythmia, 1st degree AV block. Right bundle branch block. T wave abnormality- consider inferior ischemia. Plan: Continue trending troponins: most recent 05.14 TTE and ECG done today. Cardiology consulted. Plan for cath on Saturday. Nitroglycerin for chest pain. Cardiac diet, n.p.o. after midnight As needed oxygen to maintain SpO2 greater 92%. Hold metoprolol and continue monitoring bradycardia. Hold Lasix and lisinopril. All medications reviewed, continues with aspirin 81 mg daily, atorvastatin 40 mg daily, Farxiga 10 mg daily, isosorbide 30 mg daily, nitroglycerin sublingual tablets as needed, Protonix. VTE Prophylaxis: Continuous heparin drip Scheduled Meds aspirin, 81 mg, oral, Daily with breakfast atorvastatin, 40 mg, oral, Daily before evening meal dapagliflozin propanediol, 10 mg, oral, Daily [Held by provider] furosemide, 40 mg, oral, q AM isosorbide mononitrate ER, 30 mg, oral, Daily [Held by provider] lisinopril, 10 mg, oral, Daily metoprolol succinate XL, 12.5 mg, oral, Daily Oxygen Therapy, , inhalation, Continuous pantoprazole, 40 mg, oral, Daily [Held by provider] rivaroxaban, 20 mg, oral, Daily with evening meal heparin, 0-28 Units/kg/hr, Last Rate: 14 Units/kg/hr (04/13/24 0453) Pertinent Investigations Hematology: Results from last 7 days Lab Units 04/13/24 0310 04/12/24 1635 WBC AUTO 10*3/uL 5.22 5.56 HEMOGLOBIN g/dL 14.3 16.9 HEMATOCRIT % 41.7 48.7 MCV fL 101.2* 101.5* PLATELETS AUTO 10*3/uL 152 177 Chemistry: Results from last 7 days Lab Units 04/13/24 0310 04/12/24 1635 SODIUM mmol/L 135* 138 POTASSIUM mmol/L 3.7 3.8 CHLORIDE mmol/L 104 102 CO2 mmol/L 25 26 BUN mg/dL 25 19 CREATININE mg/dL 1.26 1.25 GLUCOSE mg/dL 88 93 MAGNESIUM mg/dL 2.1 2.2 CALCIUM mg/dL 8.5* 9.7 No lab exists for component: AFIO2 , APHT , APCOT , APOT , ATCO2 , CK , ALB , IBILI Historical Values: (Includes values prior to this admission) No results found for: PREALBUMIN , TSH , T3FREE , FREET4 , CORTISOL , FEV1 , EKD6MVU , DLCO , RVSP , HDL , LDL No results found for: XSVVFIFS23 , IRON , TIBC , C3 , C4 , CARLOS MANUEL , CANCA , ASO , PSA , CEA , CA125 , CA199 , AFP , CA153 Imaging Electrophysiology procedure Narrative: Images from the original result were not included. LOOP EXPLANT & IMPLAN (more content not included)...[facility]12-08-2024 NoteHospital Medicine History and Physical 04/12/2024 4:30 PM THE HOSPITALIST TEAM PREFERS TO USE [facility] FOR NON-URGENT COMMUNICATION 7AM-7PM. IF I DO NOT RESPOND WITHIN 20 MINUTES OR URGENT MATTERS, PLEASE CALL THROUGH THE MANAGER QUALITY COMPLIANCE. FROM 7PM-7AM, PLEASE PAGE [phone](COVR). Chief Complaint Chest pain History of Present Illness Annelise Olson is an 88 y.o. male who came from outside hospital with STEMI. At 8:30 AM day of admission, patient experienced chest pain at rest for which EMS was called and he went to [facility] ER. Patient rated his chest pain a 6 out of 10 describing it as an aching discomfort without any radiation to his left arm, jaw, or neck. He does report having some associated shortness of breath. He denies any lightheadedness, dizziness, palpitations, nausea, or vomiting. Patient reported that he took his own nitro which provided relief prior to EMS arriving. Pertinent health history significant for hypertension, ischemic cardiomyopathy, coronary artery disease status post CABG, heart failurewith ejection fraction of 4045%, atrial fibrillation on Xarelto, chronic kidney disease, and GERD. On arrival to ER labs revealed first troponin of 24.4 and second troponin of 152.5 (high intensity scale 4.0-76.1). Patient's initial EKG showed ST depression in the lateral leads which was new compared to EKG in June, patient was administered nitro, morphine, and aspirin with repeat EKG with improved ST depression. Patient is established with [facility] cardiology group and was therefore transferred to [facility] for further workup and cath tomorrow. Patient's vital stable. On examination, patient is very pleasant, he is alert and orient x 3 his family's at bedside. He denies any current chest pain, shortness of breath, nausea, vomiting, lightheadedness, or dizziness. His vitals are stable besides some bradycardia heart rate in the 50s. Discussed plan of care fully in great detail with patient and family who state understanding. Review of System and Physical Exam Temp: [36.4 ???C (97.6 ???F)] 36.4 ???C (97.6 ???F) Heart Rate: [55] 55 Resp: [17] 17 BP: (148)/(52) 148/52 Physical Exam Vitals and nursing note reviewed. HENT: Head: Normocephalic. Right Ear: External ear normal. Nose: Nose normal. Mouth/Throat: Mouth: Mucous membranes are moist. Eyes: Pupils: Pupils are equal, round, and reactive to light. Cardiovascular: Rate and Rhythm: Normal rate and regular rhythm. Pulses: Normal pulses. Heart sounds: Normal heart sounds. Pulmonary: Effort: Pulmonary effort is normal. Breath sounds: Normal breath sounds. Abdominal: Palpations: Abdomen is soft. Musculoskeletal: General: Normal range of motion. Cervical back: Normal range of motion. Skin: General: Skin is warm. Capillary Refill: Capillary refill takes less than 2 seconds. Neurological: Mental Status: He is alert and oriented to person, place, and time. Psychiatric: Mood and Affect: Mood normal. Behavior: Behavior normal. Review of Systems Constitutional: Positive for chills. HENT: Negative. Eyes: Negative. Respiratory: Positive for shortness of breath. Cardiovascular: Positive for chest pain. Gastrointestinal: Negative. Endocrine: Negative. Genitourinary: Negative. Musculoskeletal: Negative. Skin: Negative. Allergic/Immunologic: Negative. Neurological: Negative. Hematological: Negative. Psychiatric/Behavioral: Negative. Problem List Principal Problem: NSTEMI (non-ST elevated myocardial infarction) ([facility]) Assessment and Plan Chest pain, rule out acute coronary syndrome Coronary disease status post CABG in the Systolic Chronic heart failure, not in exacerbation, EF 40 to 45% Ischemic cardiomyopathy Primary hypertension History of atrial fibrillation/atrial flutter found on loop recorder,-on Xarelto Hyperlipidemia Troponins at outside hospital 24.4 with increase to 152.5 (high-sensitivity) Troponin at [facility] 1.0, continue to trend troponins next is scheduled for 2300 Echocardiogram ordered Cardiology consulted Patient has been initiated on IV heparin with likely plan for cath on Saturday Nitroglycerin for chest pain Acute on chronic kidney disease, stage IIIa Hold Lasix and lisinopril GERD Hypothyroidism Admit inpatient on cardiac stepdown Monitor vitals closely Daily labs Cardiac diet, n.p.o. after midnight Strict intake and output Daily weights As needed oxygen to maintain SpO2 greater 92% Consult PT/OT All medications reviewed, continues with aspirin 81 mg daily, atorvastatin 40 mg daily, Farxiga 10 mg daily, isosorbide 30 mg daily, Toprol XL 25 mg daily, nitroglycerin sublingual tablets as needed, Protonix, VTE Prophylaxis: Continuous heparin drip ----- Focus of this inpatient stay will remain on problems that need acute care setting for care. We will review available studies and will order additional labs, imaging a (more content not included)...[facility]11-27-2024 NoteLOOP EXPLANT & IMPLANT PROCEDURE NOTE DATE OF PROCEDURE:04/01/2024 PERFORMING PHYSICIAN: Dr. Camacho Mohamud INDICATIONS FOR PROCEDURE: 1. Device at EOL/ AF surveillance. 2. S/p CTI ablation. CONSENT: Patient LOCATION: EP lab PROCEDURAL SEDATION: Local anesthesia. FLUOROSCOPY TIME: 0min EBL: 5cc SPECIMEN REMOVED: Old LOOP PREPARATION: Preoperative antibiotics was administered. PROCEDURES PERFORMED: 1. LOOP explant ([employer] LINQ) 2. New LOOP implant ([employer] LUX-Dx) PROCEDURE NOTE: Patient was brought to the room in the post absorptive state. A procedural pause was performed verifying the patient, the procedure. Sterile prep and drape were performed over the left precordium and anesthesia with 1% lidocaine was followed by a small incision where I felt the device to be most superficial. With dissection, the device was exteriorized. The skin was then closed with 3-0 absorbable monofilament suture and glue applied to hold the edges together. Sterile prep and drape were performed over the left precordium and anesthesia with 1% lidocaine was followed by a small incision was made in the 3rd intercostal space near the sternum on the left using the [employer] tool. The loop recorder was then injected subcutaneously and noted to have good sensing parameters. Technical details of the device as noted below. The skin was then closed with 3-0 absorbable monofilament suture and glue applied to hold the edges together. Tegaderm was applied to cover the wound. The patient appeared totolerate the procedure well and was returned to her room in stable condition. No complications were immediately observed. Explanted device: [employer] LINQ Serial# [id number] IMPRESSION: Successful explant of old LOOP and implant of new LOOP. RECOMMENDATIONS: 1. Occlusive dressing to be changed after 7 days. 2. Doxycycline 100mg bid x 10 days Camacho Mohamud MD [facility] Note Cardiovascular Medicine [facility] SUBJECTIVE Chief Complaint Patient presents with Atrial Flutter Annelise Olson is a 88 y.o. male here for follow-up after his recent EP study/a.flutter ablation. HPI PMHx: CAD s/p CABG 1994, a.flutter s/p ablation, LOOP monitor, HFrEF, ICM, AV regurg He has been feeling well since his recent EPS/a.flutter ablation. He had some bruising in his groin access site that is resolving. No swelling/numbness/tingling. Denies c/o CP, dyspnea, orthopnea, PND, LE edema, dizziness/LH, palpitations, syncope. 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 Gastroesophageal reflux disease with esophagitis Hematuria History of duodenal ulcer Increased frequency of urination intermediate current use of anticoagulant therapy Osteoarthritis of [...] loss) Stage 3a chronic kidney disease (CMS/HCC) Atrial tachycardia (CMS/HCC) Medicare annual wellness visit, subsequent Subclinical hypothyroidism Past Medical History: Diagnosis Date Abnormal ECG Arrhythmia Atrial flutter (CMS/HCC) Coronary artery disease Heart valve disease Hyperlipidemia Hypertension Ischemic cardiomyopathy Family History Problem Relation Name Age of Onset Coronary artery disease Mother Coronary artery disease Father Social History Tobacco Use Smoking status: Never Passive exposure: Never Smokeless tobacco: Never Substance Use Topics Alcohol use: Never Drug use: Never Allergies Allergen Reactions Naproxen Unknown ROS Musculoskeletal: Positive for myalgias. Psychiatric/Behavioral: Positive for memory loss. All other systems reviewed and are negative. OBJECTIVE Visit Vitals BP 110/52 (BP Location: Left arm, Patient Position: Sitting) Pulse 57 Ht 1.676 m (5' 6 ) Wt 67.1 kg (148 lb) SpO2 97% BMI 23.89 kg/m??? Smoking Status Never BSA 1.77 m??? Medications: Current Outpatient Medications: aspirin 81 mg chewable tablet, in the morning., Disp: , Rfl: atorvastatin (Lipitor) 40 mg tablet, Take 1 tablet every day by oral route., Disp: , Rfl: cetirizine (ZyrTEC) 10 mg capsule, if needed., Disp: , Rfl: dapagliflozin propanediol (Farxiga) 10 mg, Take 1 tablet (10 mg) by mouth in the morning., Disp: 90 tablet, Rfl: 3 furosemide (Lasix) 40 mg tablet, TAKE 1 TABLET BY MOUTH IN THE MORNING, Disp: 90 tablet, Rfl: 3 ginkgo biloba 40 mg tablet, Take 1 tablet by mouth 1 (one) time each day., Disp: , Rfl: isosorbide mononitrate ER (Imdur) 30 mg 24 hr tablet, Take 1 tablet (30 mg) by mouth in the morning. Do not crush or chew., Disp: 30 tablet, Rfl: 0 [id number]-[id number]-whu-evn-hommvvv-ast (krill oil) [id number] mg capsule, Take 90 mg by mouth in the morning., Disp: , Rfl: lisinopril 10 mg tablet, Take 10 mg by mouth in the morning., Disp: , Rfl: metoprolol succinate XL (Toprol-XL) 25 mg 24 hr tablet, Take 0.5 tablets (12.5 mg) by mouth in the morning. Do not crush or chew., Disp: 45 tablet, Rfl: 3 niacin, inositol niacinate, 500 mg capsule, Take 1 capsule every day by oral route., Disp: , Rfl: nitroglycerin (Nitrostat) 0.4 mg SL tablet, place 1 tablet under the tongue if needed every 5 minutes for chest pain for 3 doses IF NO RELIEF AFTER FIRST DOSE CALL PRESCRIBER OR 911., Disp: , Rfl: omeprazole (PriLOSEC) [address] capsule, Take 1 capsule every day by oral route., Disp: , Rfl: traMADol (Ultram) 50 mg tablet, , Disp: , Rfl: finasteride (Proscar) 5 mg tablet, Take 1 tablet every day by oral route., Disp: , Rfl: Physical Exam Constitutional: Appearance: Normal appearance. He is normal weight. HENT: Head: Normocephalic and atraumatic. Right Ear: External ear normal. Left Ear: External ear normal. Eyes: Extraocular Movements: Extraocular movements intact. Pupils: Pupils are equal, round, and reactive to light. Neck: Vascular: No carotid bruit. Cardiovascular: Rate and Rhythm: Normal rate and regular rhythm. Pulses: Normal pulses. Heart sounds: Normal heart sounds. Comments: Premature beats noted Pulmonary: Effort: Pulmonary effort is normal. Breath sounds: Normal breath sounds. Abdominal: General: Bowel sounds are normal. Palpations: Abdomen is soft. Musculoskeletal: General: Nor (more content not included)...[facility] 03-10-2024 NotePatient here for follow up atrial flutter ablation and EP study performed 02/27/[address] Mohamud. He's feeling very well s/p ablation. Denies chest pain, SOB, and palpitations. Review of Systems Musculoskeletal: Positive for myalgias. Psychiatric/Behavioral: Positive for memory loss. All other systems reviewed and are negative.[facility] 02-26-2024 NoteATRIAL FLUTTER ABLATION PROCEDURE NOTE DATE OF PROCEDURE: 02/27/2024 PERFORMING PHYSICIAN: Dr. Camacho Mohamud. CONSENT: Patient NAME OF THE PROCEDURE: Flutter ablation and Comprehensive EP study. INDICATIONS FOR PROCEDURE: EP Study PROCEDURES PERFORMED: 1. Sonosite guided venous access as noted below and images stored in PACS. 2. Comprehensive EP study and catheter ablation for persistent atrial flutter. This includes right atrial recording and pacing, His bundle recording and right ventricular recording and pacing. 3. Intracardiac EP 3D mapping. 4. Intracardiac echocardiogram 5. Left atrial and coronary sinus recording and pacing to assess ablation results. 6. Conscious sedation. PROCEDURAL SEDATION: Versed and Fentanyl. Moderate sedation was administered by the sedation nurse under my supervision and noted in the CVL log. Intraprocedural face to face sedation time: 82min. Monitoring: Cardiac telemetry, Blood pressure, continuous pulse oxymetry. FLUOROSCOPY: NA EBL: 15cc SPECIMEN REMOVED: None INDICATION: 88 yo man with history of CAD s/pCABG [...] stopped his atenolol due to his bradycardia. Pt underwent flutter ablation on 06/13/20 and thereafter had a LOOP which revealed episodes of SVT as noted below. He was brought for EP study and possible ablation. PROCEDURE NOTE: Risks, benefits and alternatives of the procedure were discussed with the patient and family who agreed to proceed. Please refer to my consult note for details of the discussion and of indications. The patient was brought to the EP lab and a procedural pause was performed identifying the patient, the procedure. The patient presented in sinus rhythm and ICE imaging was used to rule out NICOLE clot. Both the groins were then prepared and draped. Ultrasound was used to determine the course and patency of the femoral veins on both sides and they were noted to be patent and the image stored in PACS. After infiltration with 1% lidocaine, 3 venous sheaths were placed in the right. RFV: 8Fx3 [employer] Thermo[employer] SF Bi-Directional over SL1/ Vizigo, ICE catheter. CS Catheter (EZ Steer) Heparin 4000U bolus was given followed by continuous intravenous drip to target ACT around 300. An intracardiac ultrasound catheter was inserted into the right atrium to examine the right atrial anatomy, atrial septum, pulmonary vein anatomy and to monitor for pericardial effusion. At baseline, there was mild pericardial effusion and no NICOLE clot. CS os was mapped using the Health: EltUND 3D mapping software. Using ICE, the His and IVC junctions were marked with 3D CARTO mapping software. Vizigo sheath was exchanged for a short 8F sheath. Vizigo sheath was placed instead of short 8F sheath. The ablation catheter was advanced over to the CTI. I first performed a mapping with CS pacing to see if the prior CTI ablation was intact. This confirmed line of block with less block at the IVCaspect. I then performed EP study. Patient had very poor AV node conduction with AV wenkebach at 790ms. Isuprel was started at 5mcg/min and EP study was repeated. No tachycardia was noted. Despite multiple attempts no tachycardia was seen except for PAC. I mapped these and noted them to be originate from the atrial septum. I performed ablation here for the limited PAC which were blocked. I decided to reinforce the prior CTI line. Ablation was performed on the CTI line starting at the tricuspid valve aspect. 40W was utilized and I extended the ablation to the IVC aspect and bidirectional block was seen. There was a significant pouch noted which made it challenging to have good contact at the IVC aspect. Pacing from the proximal CS as well as lateral aspect of CTI (152ms)confirmed this. Differential pacing also confirmed CTI block. EP study was then performed. Atrial pacing was performed from CS poles. Burst atrial pacing down to 250ms did not induce any tachycardia. Repeat EP study could no longer demonstrate any tachycardia. EP study and ablation were then stopped at this time. ICE imaging confirmed the same extent of pericardial effusion. Sheaths were pulled and hemostasis was confirmed with manual compression. ICE catheter and all catheters were removed. Venous sheaths were pulled and hemostasis noted. He was transferred to observation bay. AHms 138, 129 HVms 54, 59 VERPms 600/250 AV Wenkebach ms 790ms AH jump ms NA AVNERP ms Not done due to WB @790ms AERP ms 600/250 POST PROCEDURE DIAGNOSIS 1. PAC mapped to atrial septum and ablation performed. 2. Repeat CTI ablation to reinforce prior CTI block. 3. EP study revealing no re (more content not included)...[facility] NotePatient: Annelise Olson Procedure Information Date/Time: 02/26/24 1200 Procedure: Electrophysiology procedure - PC APPROVED Location: [facility] SHEET TESTER 1 EP / [facility] (Cath) Providers: Camacho Mohamud MD Clinical information reviewed: Allergies Meds Physical Exam Airway Mallampati: II TM distance: >3 FB Cardiovascular Dental Pulmonary Abdominal Anesthesia Plan ASA 3 CSE Anesthetic plan and risks discussed with patient. Use of blood products discussed with patient who. [facility] History of Present illness Narrative* Hair Foley, DPM - 02/20/2024 9:40 AM EDT Patient: Annelise Olson : 1935 PCP: Miguel Lala MD SUBJECTIVE Patient presents today for follow up of skin lesion/neoplasm of unknown origin to the left foot Pt states that previous treatment of acid tx with some improvement Pt rates pain the pain on a 1-10 scale an intensity of 7 Pt presents today for followup. Patient presents today with a CC of elongated, thick nails. Pt states nails have been elongated and thick for many years and cause pain with ambulation in shoegear. Pt has tried previous treatment with minimal relief. Pt presents today for nail care and treatment. Allergies: Allergies Allergen Reactions Avelox [Moxifloxacin] Ciprofloxacin Fenoprofen Iodinated Contrast Media Naproxen Unknown Sulfa Antibiotics Past Medical History: Past Medical History: Diagnosis Date Arthritis CTS (carpal tunnel syndrome) GERD (gastroesophageal reflux disease) Heart abnormality Hyperlipidemia (CMS/HCC) Hypertension (CMS/HCC) Kidney disease Medications: Current Outpatient Medications: Apoaequorin (PREVAGEN EXTRA STRENGTH PO), Take by mouth, Disp: , Rfl: aspirin 81 MG EC tablet, Take 81 mg by mouth in the morning., Disp: , Rfl: atorvastatin (Lipitor) 40 MG tablet, Take 40 mg by mouth in the morning., Disp: , Rfl: cetirizine (ZyrTEC) 5 MG tablet, Take 10 mg by mouth in the morning., Disp: , Rfl: Farxiga 10 MG, Take 10 mg by mouth in the morning., Disp: , Rfl: finasteride (Proscar) 5 MG tablet, Take 5 mg by mouth in the morning. Do not crush, chew, or split.., Disp: , Rfl: furosemide (Lasix) 40 MG tablet, Take 40 mg by mouth in the morning., Disp: , Rfl: lisinopril 10 MG tablet, Take 10 mg by mouth Daily, Disp: , Rfl: nitroglycerin (Nitrostat) 0.4 MG SL tablet, Place 0.4 mg under the tongue every 5 (five) minutes ifneeded, Disp: , Rfl: omeprazole (PriLOSEC) [address] capsule, Take 40 mg by mouth, Disp: , Rfl: tamsulosin (Flomax) 0.4 MG 24 hr capsule, 1 capsule, Disp: , Rfl: traMADol (Ultram) 50 MG tablet, Take 50 mg by mouth, Disp: , Rfl: Social History: Social History Socioeconomic History Marital status: Spouse name: Not on file Number of children: Not on file Years of education: Not on file Highest education level: Not on file Occupational History Not on file Tobacco Use Smoking status: Never Smokeless tobacco: Never Vaping Use Vaping status: Unknown Substance and Sexual Activity Alcohol use: Defer Drug use: Defer Sexual activity: Defer Other Topics Concern Not on file Social History Narrative Not on file Social Drivers of Health Financial Resource Strain: Not on file Food Insecurity: Not on file Transportation Needs: Not on file Physical Activity: Not on file Stress: Not on file Social Connections: Not on file Intimate Partner Violence: Unknown (06/27/2023) [facility] [place] Safety & Environment Fear of Current or Ex-Partner: Not on file Emotionally Abused: Not on file Physically Abused: Not on file Sexually Abused: Not on file Physically or Sexually Abused: Not on file Housing Stability: Not on file ROS: Gastrointestinal: denies abdominal pain, ulcers, or changes in appetite or bowel habits Musculoskeletal: Positive history of arthritis, denies loss of strength, pain to hip, knees, back positive history of hip replacement in the past Cardiovascular: denies CP, palpitations, with history of [place] in the past and being worked up currently for atrial fibrillation OBJECTIVE LE EXAM: DERM: Positive hair growth to b/l feet with good skin turgor noted. Negative openings in skin. Leftsub 5th metatarsal has a round nummular lesion that measure 0 at the base 0.4 cm x 0.4 cm Elongated thick yellow crumbly nails digits 1 through 10 VASC: Barely Palpable pedal pulsed b/l with warm to cool tibia to toes b/l NEURO: Gross sensation intact digits 1-10 and b/l feet ORTHO: +5/5 DF/PF/IN/EV right, +5/5 DF/PF/IN/EV left. 20 degrees inversion and 10 degrees eversion STJ b/l. Ankle ROM less than 10 degrees b/l. Positive pain on palpation to left foot lesion Plantar flexed left 5th metatarsal head with notable pes cavus foot type bilaterally Positive pain on palpation nails 1 through 10 XRAY: US: ASSESSMENT 1. Verruca plantaris 2. Foot pain, left 3. Pain due to onychomycosis of toenails of both feet 4. Neoplasm of uncertain behavior of skin PLAN Application of salinocaine acid medication to lesion/lesions located at left foot Informed pt of risks and benefits of procedure including high reoccurence rate, infection, pain andconsent given. Application of DSD post procedure. Discussed proper foot care with patient today. Debride nails in length and thickness digits 1 through 10 Discussed conservative and surgical treatment options for patient today including postoperative time frame and surgical procedure in detail. Patient may continue with conservative treatments including [id number] anti- inflammatories and other treatments suggested today. Patient may want to be s cheduled for surgical intervention in the near future. Discussed possible excision of neoplasm of skin with single lobe flap closure in an outpatient environment. Patient does see a stage settings painter Dr Ramirez and primary care provider is Dr. Camacho Raymundo. He would like Ultram postoperatively and will call in near future if would like to schedule surgical intervention Hair Foley DPM documented in this encounterResearch Medical Center-Brookside [id number] History of Present illness Narrative* Fatemeh Ramírez DO - 01/28/2024 11:45 AM EDT Chief Complaint Patient presents with Memory Loss Subjective Annelise Olson, 88 y.o., male is here for a follow up. Pt states that his memory is about the same. She states that he does better when he is not tired. He states that he is sleeping well. He sleeps 8 hours a night but is up to go to the bathroom. He will sometimes nap during the day. He will nap forabout 45-60 minutes a few times a week. He is independent with ADL's. He had the neuropsych test and they found mild cognitive impairment. He had his ears checked and was told that he does not need a hearing aid. He is going to wait untilhearing gets worse before pursuing aids for hearing. He is doing some word searches for brain health. His states that he used to be slow at these and now he is able to do them quickly, and in enjoying them. He was going to crawl up on a ladder and paint a basketball hoop. He had no place to put the paint can or pain brush. They are concerned with the covid vaccination and would like to know if they should continue them. They feel some of his issues started with the injections. They have had the initial injections and 2boosters. Last injection was in 2021. Past Medical History: Diagnosis Date Arthritis CTS (carpal tunnel syndrome) GERD (gastroesophageal reflux disease) Heart abnormality Hyperlipidemia (CMS/HCC) Hypertension (CMS/HCC) Kidney disease Past Surgical History: Procedure Laterality Date CARDIAC SURGERY 1994 [facility] [place] CORONARY ARTERY BYPASS GRAFT HERNIA REPAIR 1988 [facility] OTHER SURGICAL HISTORY ablation TRANSURETHRAL RESECTION OF PROSTATE Family History Problem Relation Name Age of Onset Diabetes Mother Heart disease Mother Coronary artery disease Mother Hypertension Mother Heart disease Father Coronary artery disease Father Heart disease Daughter Diabetes Daughter Coronary artery disease Sibling Diabetes Sibling Hypertension Sibling Social History Tobacco Use Smoking status: Never Smokeless tobacco: Never Substance Use Topics Alcohol use: Defer Allergies: Avelox [moxifloxacin], Ciprofloxacin, Fenoprofen, Iodinated contrast media, Naproxen, and Sulfa antibiotics General: No fever or chills HEENT: No nasal congestion or runny nose Pulmonary: No shortness of breath or cough Cardiovascular: No chest pain or palpitations GI: No nausea or vomiting : No dysuria or hematuria Musculoskeletal: No new aches or pains or muscle weakness Infectious: no recurrent fevers or infections Dermatologic: No rashes or skin lesions Neurologic: No new headaches or dizziness Vitals: 01/28/24 1151 BP: 120/68 Pulse: 54 SpO2: 98% There is no height or weight on file to calculate BMI. Neurologic exam: Mental status: Awake, alert to person, place and time. Recent and remote memory are intact. Attention and concentration are normal. Fund of knowledge is appropriate for level of education. HEENT: NC/AT Cranial nerves: CN II: Visual acuity is normal. Visual pierre full to confrontation. CN III, IV, : pupils equal round and reactive to light. Extraocular movements intact. No ptosis present. CN V: Facial sensation is normal. CN VII: Full and symmetric facial movement. CN VIII: Hearing is normal CN IX and X: Palate elevates symmetrically. CN XI: Shoulder shrug is normal bilaterally. CN XII: Tongue is midline without atrophy or fasciculation. Speech: Clear and fluent no aphasia or dysarthria Pronator drift: Negative bilateral upper extremity Coordination: Intact, no signs of dysmetria Good finger to nose and rapid alternating movements Sensory: Sensation is intact to light, temperature and vibratory touch throughout four extremities. Motor: LUE 5/5 RUE 5/5 LLE 5/5 RLE 5/5 Tone: Physiologic, no tremor, bradykinesia or rigidity DTR: Biceps, BR 2/4 Patellar 2/4 Gait: Normal to casual gait Romberg's Negative Review and summary of old records: EEG to assess brain waves= wnl CT of the brain showed some atrophy and small-vessel changes Folic acid was 11, B12 normal at 323, TSH 4.071- sent to PCP Neuropsych testing consistent with mild cognitive impairment Assessment/Plan Diagnoses and all orders for this visit: Mild cognitive impairment with memory loss 88-year-old male with some memory loss that is most consistent with a mild cognitive impairment. Hedid have neuropsych test that was consistent with a mild cognitive impairment. He is stable and nowworse. He can be a little forgetful but nothing that is affecting his day-to-day activity. He can have some poor insight, like wanting to get on a ladder and paint a basketball hoop back board. He is taking Prevagen and thinks that it was somewhat helpful so he can continue that. His high TSH was sent to PCP for eval and treatment. Plan Dr. Lala was sent TSH for eval and treatment Brain exercises. Cardiovascular exercise. Mediterranean diet. 8 hours of sleep. 12 hour fasting through the night if able. Last MMSE 27/30 Repeat MMSE at the next visit Long discussion was had about brain exercises and diet including Mediterranean diet berries fishes such as salmon Olives etc Counseled that if his and son would not want him to perform the activity then he likely shouldnot like getting on a ladder. The diagnosis was all discussed with the patient. All questions were answered and they agreed with the treatment plan. Patient will call if there are any new issues or questions. Pt has been fully educated on their diagnosis, lab results, treatment options, and follow up plan Return to clinic: 3-4 m documented in this encounterResearch Medical Center-Brookside [id number] History of Present illness Narrative* GILDA Gaytan - 01/23/2024 10:45 AM EDTAssociated Order(s): L Inj/Asp: R knee Post-Procedure Diagnose(s): Primary osteoarthritis of right knee L Inj/Asp: R knee on 01/23/2024 11:16 AM Indications: pain Details: 22 G needle, lateral approach Medications: 30 mg cross-linked hyaluronate 30 MG/3ML Consent was given by the patient. * Hawk Hill DO - 01/23/2024 10:45 AM EDT Gel One Injection Right knee Patient is seen and evaluated today for right knee pain and stiffness. Continued swelling and stiffness despite conservative course with ice, Tylenol, NSAID's and compression. Occasional buckle sensation. Night disruption is present and increasing. Progression of pain. Occasional assistive device required. Here today to review non-operative conservative options and discuss indications and overview of knee arthroplasty. Physical Exam: The patient is examined in the office today. The right knee has mild aseptic swelling. Hypertrophicchanges are noted. AROM is decreased with pain. Crepitance is present in multiple compartments. Tenderness is moderate to severe thru multiple compartments. Collateral ligaments are intact to stress testing at 0 and 30 degrees. Positive grind test of the patella. Gait is stiff and antalgic with occasional assistive device reported. Hip exam is stable. Negative bench and straight leg raise testing. NVM intact distally without footdrop. Calves are supple without sign of infection, ulceration or DVT. Xrays: Multiple weightbearing views (AP, Lateral and sunrise) are reviewed for the permanent PACS record. 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 No fracture, dislocation, tumor or infection seen. Images are reviewed with the patient at length. Assessment: Right knee Osteoarthritis-M17.11 Right knee pain-M25.561 Antalgic gait-R26 Treatment/Plan: The nature of the findings were discussed at length. Xray imaging and severity discussed. Conservative management with ice, heat, exercise, strengthening, weight loss, compression wrap/bracing was reviewed. Anti-inflammatory medication , if stable with GI and kidney function, was reviewed. OTC and prescription options were discussed. Tylenol dosing parameters and daily limits for breakt thru painwas reviewed. Cortisone injections can be provided up to 3 per year and no closer than a month interval. Hyaluronic acid viscosupplementation options and expectations were discussed at length. Patient is aware results are not guaranteed. We discussed the role of knee replacement surgery, indications, approach, implants, and rehab process were all reviewed. After lengthy discussion, the patient elects to move forward with viscosupplementation injection with Gel One to the Right knee. Under sterile technique with the knee extended and supported, 3 ml of Gel One was injected to the right knee sup rapatellar pouch. Needle was removed and adequate hemostasis was achieved. The patient tolerated the injection well. Post injection restriction of 50% activity reduction the day of the injection withicing techniques 1-2 times per 10-15 minutes to the knee was reviewed. Patient was ambulatory and discharged in stable condition. Any reactions, concerns or continued pain will be reported via phone call or return visit. All questions were answered. documented in this encounterResearch Medical Center-Brookside [id number] NoteUT Cardiology Consult Note Reason for visit: [...] palpitations, lightness, dizziness, racing heart Per dr. mohamud HPI: 05/01/22 Pt doing well. No issues [...] bradycardic with symptoms after stopping the beta catracho. urrently he is doing well. 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 Dr. Camacho Mohamud had stopped his Eliquis based on absence of recurrence of atrial flutter. His loop recorder had picked up possible atrial fibrillation but review by Dr. Camacho Mohamud showed artifact and sinus rhythm. today he [...] mg capsule, if n (more content not included)...[facility]03-08-2024 NoteNYHC II- currently euvolemic without exacerbation Continue GDMT- ASA, lipitor, farxiga, lasix Diuretic therapy, and lisinopril Monitor daily weights, I&O, fluid restriction 1.5-2L/day, renal function and electrolytes-[facility]03-08-2024 NoteRepeat echocardiogram prior to next visitUnHolzer Hospital03-08-2024 NoteHypertension is currently well controlled Continue lisinopril Renal function normalUnHolzer Hospital03-08-2024 NoteUTP CARDIOLOGY PROGRESS NOTE HPI: Annelise Olson is a 88 [...] is significant for CAD, hyperlipidemia and hypertension. [facility] 07/10/23 Review of Systems Cardiovascular: Positive for chest pain. Previous HPI per DR Mohamud 05/14/23 05/14/23 Patient here for 5 mo follow up stress test. He was started on Farxiga by Nathaniel Reyes at last visit in Dec 2022. He had routine labs in Jan 2023. states Farxiga was expensive for them so they'd like to know if there's an alternative. Denies chest pain, SOB, palpitations, and lightheadedness/syncope. Device check that was performed by me with the [employer] rep today revealed multiple episodes of A-fib. [...] palpitations, lightness, dizziness, racing heart Per dr. mohamud HPI: 05/01/22 Pt doing well. No issues [...] pulses are 3 on (more content not included)...[facility]03-08-2024 NoteLipid abnormalities are stable Continue statinUnHolzer Hospital03-08-2024 Note1 episode of angina that resolved with 1 NTG SL therefore will start imdur 30 mg daily Continue GDMT- ASA, lipitor, lisinopril- no beta catracho r/t bradycardia continue risk factor modifications- heart healthy diet, regular exercise as tolerated and continue all medications.[facility] 06-20-2023 Hospital Discharge instructionsAmbulatory Orders* Referral to Audiology Time Frame: 06/20/23, Location: None Selected * Referral to Neurology Time Frame: 06/20/23, Location: None Selected [facility] Work Phone: 1(515) 889-959602-15-2024 Evaluation note* Diagnosis Onset Date Resolution Status Mild cognitive impairment ac emmonak Primary hypertension acute SNHL (sensorineural hearing loss) acute Stage 3a chronic kidney disease acute Cerumen impaction noneactive [facility] Work Phone: 1(223) 659-901201-10-2024 Evaluation note* Encounter Date Diagnosis Assessment Notes Treatment Notes Treatment Clinical Notes May, Chronic HFrEF (heart failure with reduced ejection fraction) (ICD-10 - I50.22) Echocardiogram: 12/2022 LVEF 45%, RV dilated, mild MR, bookjam Other 01-08-2024 Evaluation note* Encounter Date Diagnosis Assessment Notes Treatment Notes Treatment Clinical Notes May, Mild cognitive impairment (ICD-10 - G31.84) [facility] [employer] Other 01-04-2024 Evaluation note* Encounter Date Diagnosis [...] May, Fatigue, unspecified type (ICD-10 - R53.83) [facility]jam Other 09-18-2023 Evaluation note* Encounter Date Diagnosis Assessment Notes Treatment Notes Treatment Clinical Notes Jan, Essential hypertension (ICD-10 - I10) [facility] Other 08-28-2023 Evaluation note* Encounter Date Diagnosis Assessment Notes Treatment Notes Treatment Clinical Notes Dec, ASHD (arteriosclerotic heart disease) (ICD-10 - I25.10) [place] Imaging: LVEF 40% bookjam Other 08-26-2023 Evaluation note* Encounter Date Diagnosis Assessment Notes Treatment Notes Treatment Clinical Notes Dec, ASHD (arteriosclerotic heart disease) (ICD-10 - I25.10) [place] Imaging: LVEF 40% bookjam Other 08-23-2023 Evaluation note* Encounter Date Diagnosis Assessment Notes Treatment Notes Treatment Clinical Notes Dec, Lumbar spondylosis (ICD-10 - M47.816) bookjam Other 06-23-2023 Evaluation note* Encounter Date Diagnosis [...] prevent thromboembolic events. No bleeding complications Oct, roll tension tester (current) use of opiate analgesic (ICD-10 - [...] report is being monitored every 90 days. bookjam Other 04-14-2023 Hospital Discharge instructions Follow Up Care 08/17/2022 09:23:38 With:PRINCESS GARCIA, Conner Simpson, KAUSHIK Address: [facility] [address], [place] [address] [phone] When: Unknown [facility] 04-14-2023 Hospital Discharge instructions Patient Education 08/17/2022 [...] urethra. Follow these instructions at home: Take rfkb-tqy-szqzfji and prescription medicines only as told by [...] 04/22/2006 Document Revised: 03/17/2019 Document Reviewed: 05/27/2017 Alter-G Patient Education 2020 judo. Follow Up Care 08/14/2021 10:16:11 With:PRINCESS GARCIA Conner Simpson, CUCOL Address: [facility] [address] [place] [address]- [phone] When:Within 1 Year(s) Comments:1 year fu [facility] 04-11-2022 Hospital Discharge instructions Patient Education 08/14/2021 [...] reconstructed. Follow these instructions at home: Take wwmb-rkl-iokncyg and prescription medicines only as told by [...] 05/18/2016 Document Revised: 12/03/2018 Document Reviewed: 12/03/2018 Alter-G Patient Education 2020 judo. 08/14/2021 10:10:57 Benign Prostatic Hyperplasia Benign Prostatic [...] urethra. Follow these instructions at home: Take bmun-csx-wqoehiy and prescription medicines only as told by [...] 04/22/2006 Document Revised: 03/17/2019 Document Reviewed: 05/27/2017 Alter-G Patient Education 2019 judo. Follow Up Care 02/06/2021 12:37:54 With:PRINCESS GARCIA, Conner Simpson, URL Address: [facility] [address], [place] [address] [phone] When:08/14/2022 Comments:f/u in 1 year [facility] chief complaint+Reason for visit Narrative* Chief Complaint flu shot 4 month f/u Reason for Visit Immunization due Chronic HFrEF (heart failure with reduced ejection fraction) Hypercholesterolemia Ischemic cardiomyopathy Medicare annual wellness visit, subsequent Mild cognitive impairment Primary hypertension Stage 3a chronic kidney disease Subclinical hypothyroidism [facility] Work Phone: Evaluation + Plan note Future Appointments Appointment Date:08/17/2022 08:45:00 AM Scheduled Provider:Conner SÁNCHEZ MD Location:[facility] Appointment Type:URO Office Visit [facility] evaluation + Plan note Future Appointments Appointment Date:08/19/2023 09:45:00 AM Scheduled Provider:Conner SÁNCHEZ MD Location:[facility] Appointment Type:URO Office Visit [facility] evaluation noteNo [facility] Other evaluation note* Diagnosis Onset Date Resolution Status Mild cognitive impairment ac emmonak Primary hypertension acute SNHL (sensorineural hearing loss) acute Stage 3a chronic kidney disease acute Cerumen impaction noneactive [facility] Work Phone: evaluation note* Diagnosis Onset Date Resolution Status Chronic HFrEF (heart failure with reduced ejection fraction) acute Hypercholesterolemia acute Ischemic cardiomyopathy acut e Mild cognitive impairment ac emmonak Primary hypertension acute SNHL (sensorineural hearing loss) acute Stage 3a chronic kidney disease acute [facility] Work Phone: [email or web address] noteNo assessment information available [facility] Work Phone: evaluation note* Diagnosis Onset Date Resolution Status Immunization due noneactive Chronic HFrEF (heart failure with reduced ejection fraction) acute Hypercholesterolemia acute Ischemic cardiomyopathy acut e Medicare annual wellness visit, subsequent acute Mild cognitive impairment ac emmonak Primary hypertension acute Stage 3a chronic kidney disease acute Subclinical hypothyroidism a cute [facility] Work Phone: evaluation note* Diagnosis Neoplasm of uncertain behavior of skin- Primary Verruca plantaris Plantar wart Foot pain, left Pain in soft tissues of limb Pain due to onychomycosis of toenails of both feet [facility] Diagnosis Primary osteoarthritis of right knee- Primary [facility]* Diagnosis Mild cognitive impairment with memory loss- Primary Mild cognitive impairment, so stated documented in [facility] encounter [facility]* Diagnosis Verruca plantaris- Primary Plantar wart Foot pain, left Pain in soft tissues of limb Pain due to onychomycosis of toenails of both feet documented in this encounter [facility] HealthcareEvaluation note* Diagnosis Late onset Alzheimer dementia, unspecified dementia severity, unspecified whether behavioral, psychotic, or mood disturbance or anxiety ([facility])- Primary S/P CABG (coronary artery bypass graft) Postsurgical aortocoronary bypass status documented in this encounter [facility] HealthcareEvaluation note* Diagnosis Macrocytosis- Primary Other specified diseases of blood and blood-forming organs [facility] Diagnosis Verruca plantaris- Primary Plantar wart Foot pain, left Pain in soft tissues of limb Pain due to onychomycosis of toenails of both feet documented in this encounter [facility] HealthcareHistory general Narrative - Reported* Type Description Date [...] Medical History Left leg swelling Medical History intermediate (current) use of opiat e analgesic Surgical History TURP, WITH CYSTOSCOPY Surgical History ABLATION, ARRHYTHMOG ENIC FOCUS, FOR ATRIAL FLUTTER, IN CARDIAC CATHETERIZATION Surgical History CABG Surgical History B/L HERNIORRPHAPHY Surgical History COLONSCOPY Surgical History EGD Hospitalization History SEE SURGICAL HX bookjam Other History general Narrative - Reported* Type [...] History Arthritis of knee, right Medical History roll tension tester (current) use of opiat e analgesic Medical History HFrEF Medical History Ischemic cardiomyopathy Surgical History TURP, WITH CYSTOSCOPY Surgical History ABLATION, ARRHYTHMOG ENIC FOCUS, FOR ATRIAL FLUTTER, IN CARDIAC CATHETERIZATION Surgical History CABG Surgical History B/L HERNIORRPHAPHY Surgical History COLONSCOPY Surgical History EGD Hospitalization History SEE SURGICAL HX bookjam Other Hospital course Narrative No data available for this section [facility] progress note No data available for this section [facility] Jackpocket Summary Purpose Family History No Family History [...] Date/ Time Advance Directives No June 11:30am Advance Directive Response Recorded Date/ Time Advance Directives No June 9:21am Chief Complaint and Reason for Visit Chief [...] chronic kidney disease Chief Complaint flu shot Chief Complaint Admit Date Amb Documentation April 15, 2024 10:55am Inpatient f/u [facility] cath April 22, 2 024 10:54am 3 month f/u-HIGH RISK May 21, 2024 10:27am Reason for Visit Admit Date Chronic HFrEF (heart failure with reduced ejection fraction) April 22, 2024 10:54am Chronic kidney disease April 22 10:54am Hypercholesterolemia April 22, 2024 10:54am Ischemic cardiomyopathy April 22, 2 024 10:54am Mild cognitive impairment April 22, 2024 10:54am Primary hypertension April 22, 2024 10:54am Subclinical hypothyroidism April 10:54am Chronic HFrEF (heart failure with reduced ejection fraction) May 21, 2024 10:27am Chronic kidney disease May 21 10:27am Hypercholesterolemia May 21, 2024 10:27am Ischemic cardiomyopathy May 21 10:27am Macrocytosis May 21, 2024 1 0:27am Mild cognitive impairment May 21, 2024 10:27am Primary hypertension May 21, 2024 10:27am Subclinical hypothyroidism May 21, 2024 10:27am Chief Complaint Admit Date Amb Documentation April 15, 2024 10:55am Inpatient f/u [facility] cath April 22, 2 024 10:54am 3 month f/u-HIGH RISK May 21, 2024 10:27am Tired-HIGH RISK June 18, 2024 10:36am Reason for Visit Admit Date Chronic HFrEF (heart failure with reduced ejection fraction) April 22, 2024 10:54am Chronic kidney disease April 22 10:54am Hypercholesterolemia April 22, 2024 10:54am Ischemic cardiomyopathy April 22, 2 024 10:54am Mild cognitive impairment April 22, 2024 10:54am Primary hypertension April 22, 2024 10:54am Subclinical hypothyroidism April 10:54am Chronic HFrEF (heart failure with reduced ejection fraction) May 21, 2024 10:27am Chronic kidney disease May 21 10:27am Hypercholesterolemia May 21, 2024 10:27am Ischemic cardiomyopathy May 21 10:27am Macrocytosis May 21, 2024 1 0:27am Mild cognitive impairment May 21, 2024 10:27am Primary hypertension May 21, 2024 10:27am Subclinical hypothyroidism May 21, 2024 10:27am Acute sinusitis February 13th, 2025 10:36am Viral syndrome June 18, 2024 10:36am Reason for Referral Specialty Diagnoses / Procedures Referred By Fred epstein Referred To Contact Orthopaedic Surgery Diagnoses Primary osteoarthritis of right knee Procedures L Inj/Asp: R knee [place], DO [address] [place] [address] Referral ID Status Reason Start Date Expiration Date V isits Requested Visits Authorized [id number] Authorized 01/23/2024 07/21/2024 1 1 Additional Source Comments (unrecognized sect ion and content) No Status Records FoundNo Status Records FoundNo Status Records FoundNo Status Records FoundNo Status Records FoundNo Status Records Found INFORMATION SOURCE (unrecogn ized section and content) DATE CREATED AUTHOR 06/10/2021 [facility] DATE CREATED AUTHOR AUTHOR'S ORGANIZ ATION 08/16/2022 [facility] DATE CREATED AUTHOR AUTHOR'S ORGANIZ ATION 08/22/2023 [facility] DATE CREATED AUTHOR AUTHOR'S ORGANIZ ATION 07/01/2024 [facility] DATE CREATED AUTHOR AUTHOR'S ORGANIZ ATION 07/19/2024 [facility] DATE CREATED AUTHOR AUTHOR'S ORGANIZ ATION 07/25/2024 [facility] Patient Care team informatio n (unrecognized section and content) Team Status: Active Member Role Status Dates Miguel Lala DO Primary Care Provider Active Team Status: Active Member Role Status Dates Miguel Lala DO Primary Care Provide r, Attending Provider Active Start: February 21, 2024 Team Status: Active Member Role Status Dates Miguel Lala DO Primary Care Provider Active Start: April 12, 2024 Curt Goddard DO Attending Provider Active S tart: April 12, 2024 Team Status: Active Member Role Status Dates Miguel Lala DO Primary Care Provider Active Start: April 15, 2024 Joy Wagner CMA Attending Provider Active Start: April 15, 2024 Team Status: Inactive Member Role Status Dates Miguel Lala DO Primary Care Provide r, Attending Provider Active Start: April 22, 2024 End: April 22, 2024 Team Status: Active Member Role Status Dates Miguel Lala DO Primary Care Provide r, Attending Provider Active Start: May 20, 2024 Team Status: Inactive Member Role Status Dates Miguel Lala DO Primary Care Provide r, Attending Provider Active Start: May 21, 2024 End: May 21, 2024 Team Status: Inactive Member Role Status Dates Miguel Lala DO Primary Care Provide r, Attending Provider Active Start: January 28, 2024 End: January 28, 2024 Team Status: Active Member Role Status Dates Miguel Lala DO Primary Care Provider Active Start: September 02, 2023 Fatemeh Ramírez DO Attending Provider Active Sta rt: September 02, 2023 Team Status: Inactive Member Role Status Dates Miguel Lala DO Primary Care Provide r, Attending Provider Active Start: October 17, 2023 End: October 17, 2023 Team Status: Inactive Member Role Status Dates Miguel Lala DO Attending Provider Active Sta rt: May 09, 2023 End: May 09, 2023 Team Status: Active Member Role Status Dates Provider Conversion Attending Provider Active St art: May 15, 2023 Team Status: Inactive Member Role Status Dates Miguel Lala DO Primary Care Provide r, Attending Provider Active Start: June 20, 2023 End: June 20, 2023 Team Status: Active Member Role Status Dates Miguel Lala DO Primary Care Provide r, Attending Provider Active Start: July 10, 2023 Team Status: Active Member Role Status Dates Miguel Lala DO Primary Care Provider Active Start: February 07, 2024 Camacho Mohamud MD Attending Provider Active Start : February 07, 2024 Team Status: Inactive Member Role Status Dates Miguel Lala DO Primary Care Provide r, Attending Provider Active Start: February 17, 2024 End: February 17, 2024 Adjunct Phlebotomy Instructor Relationship Specialty Start Date End Date Miguel Lala MD [address] [facility] [place] [address] PCP - General Internal Medicine 06/04/23 Fatemeh Ramírez DO [address] [place] [address] Referring Physician Neurology 07/09/23 Savi Hamilton, [facility] [address] [place] [address] Audiology 08/31/23 Adjunct Phlebotomy Instructor Relationship Specialty Start Date End Date Miguel Lala MD [address] [place] [phone] PCP - General Internal Medicine 06/04/23 Fatemeh Ramírez DO [address] [place] [address] Referring Physician Neurology 07/09/23 Savi Hamilton [facility]-A [address] [place] [address] Audiology 08/31/23 Adjunct Phlebotomy Instructor Relationship Specialty Start Date End Date Miguel Lala MD [address] [place] [phone] PCP - General Internal Medicine 06/04/23 Fatemeh Ramírez DO [address] [place] [address] Referring Physician Neurology 07/09/23 Savi Hamilton CCC-A [address] [place] [address] Audiology 08/31/23 Adjunct Phlebotomy Instructor Relationship Specialty Start Date End Date Miguel Lala MD [address] [place] [phone] PCP - General Internal Medicine 06/04/23 Fatemeh Ramírez DO [address] [place] [address] Referring Physician Neurology 07/09/23 Savi Hamilton CCC-A [address] [address] Audiology 08/31/23 Adjunct Phlebotomy Instructor Relationship Specialty Start Date End Date Miguel Lala MD [address] [place] [phone] PCP - General Internal Medicine 06/04/23 Fatemeh Ramírez DO [address] [place], [place] [id number] Referring Physician Neurology 07/09/23 Savi Hamilton CCC-A [address] [place] [address] Audiology 08/31/23 Adjunct Phlebotomy Instructor Relationship Specialty Start Date End Date Miguel Lala MD [address] [place] [address] PCP - General Internal Medicine 06/04/23 Fatemeh Ramírez DO [address] [place] [address] Referring Physician Neurology 07/09/23 Savi Hamilton CCC-A [address] [place] [place] [address] Audiology 08/31/23 Adjunct Phlebotomy Instructor Relationship Specialty Start Date End Date Miguel Lala MD [address] [place] [address] PCP - General Internal Medicine 06/04/23 Fatemeh Ramírez DO [address] [place] [address] Referring Physician Neurology 07/09/23 Savi Hamilton [facility] [address] [place] [address] Audiology 08/31/23 Adjunct Phlebotomy Instructor Relationship Specialty Start Date End Date Miguel Lala MD [address] [place] [phone] PCP - General Internal Medicine 06/04/23 Fatemeh Ramírez DO [address] [place] [address] Referring Physician Neurology 07/09/23 Savi Hamilton [facility] [address] [place] [address] Audiology 08/31/23 Team Status: Active Member Role Status Dates Miguel Lala DO Primary Care Provide r, Attending Provider Active Start: April 12, 2024 Team Status: Inactive Member Role Status Dates Miguel Lala DO Primary Care Provide r, Attending Provider Active Start: June 18, 2024 End: June 18, 2024 Adjunct Phlebotomy Instructor Relationship Specialty Start Date End Date Miguel Lala DO [address] [place] [address] Internal Medicine 06/10/24 Adjunct Phlebotomy Instructor Relationship Specialty Start Date End Date Miguel Lala DO [address] [place] [address] Internal Medicine 06/10/24 Adjunct Phlebotomy Instructor Relationship Specialty Start Date End Date Miguel Lala MD [address] [place] [phone] PCP - General Internal Medicine 06/04/23 Fatemeh Ramírez DO [address] [place] [address] Referring Physician Neurology 07/09/23 Savi Hamilton CCC-A [address] [place] [address] Audiology 08/31/23 Adjunct Phlebotomy Instructor Relationship Specialty Start Date End Date Miguel Lala MD [address] [place] [address] PCP - General Internal Medicine 06/04/23 Fatemeh Ramírez DO [address] [place] [address] Referring Physician Neurology 07/09/23 Savi Hamilton CCC-A [address] [place] [address] Audiology 08/31/23 REASON FOR VISIT (unrecogniz ed section and content) Reason Comments Toenail Problem Non DM Nails Reason Comments Follow-up Reason Comments Memory Loss Reason Comments Toenail Care Non dm nial care Reason Comments Consult Reason Comments Toenail Care Non dm nail care Goals (unrecognized section and content) Goals may be documented in a n alternate section Source Comments (unrecognize d section and content) In the event this informatio n is protected by the Federal Confidentiality of Alcohol and Drug Abuse Patient Records regulations: The Federal rules restrict any use of the information to criminally investigate or prosecute any alcohol or drug abuse patient.[facility] Health[facility] the event this information is protected by the Federal Confidentiality of Alcohol and Drug Abuse Patient Records regulations: The Federal rules restrict any use of the information to criminally investigate or prosecute any alcohol or drug abuse patient.[facility] FOR RECORDS PERTAINING TO PATIENTS WHO ARE [...] BE BASED ON THE PRIMARY CLINICAL RECORDS. [facility] [employer] [facility]. provides no warranty or guarantee of the accuracy or completeness of information in this document.
[2024-07-27 11:46] LABS: Basophils Percent Auto 0.5 % (0.2-2.0); Eosinophils Absolute Auto 0.2 10^3/uL (0.0-0.7); Eosinophils Percent Auto 2.7 % (0.9-7.0); Hematocrit 46.2 % (42.0-54.0); Hemoglobin 15.5 g/dL (14.0-18.0); Immature Granulocytes Abs Auto 0.01 10^3/uL (0.00-0.03); Immature Granulocytes Pct Auto 0.2 % (0.0-0.5); Lymphocytes Absolute Auto 1.3 10^3/uL (1.2-3.8); Lymphocytes Percent Auto 20.9 % (20.5-60.0); Mean Corpuscular HGB Conc 33.5 g/dL (29.9-35.2); Mean Corpuscular Hemoglobin 34.4 pg (25.9-34.0); Mean Corpuscular Volume 102.7 fL (80.0-94.0); Mean Platelet Volume 9.1 fL (9.5-13.5); Monocytes Absolute Auto 0.6 10^3/uL (0.3-0.8); Monocytes Percent Auto 10.1 % (1.7-12.0); Neutrophils Absolute Auto 4.1 10^3/uL (1.4-6.5); Neutrophils Percent Auto 65.6 % (43.0-75.0); Platelet Count 162 10^3/uL (150-450); Red Cell Distribution Width 12.5 % (11.0-15.0); White Blood Count 6.3 10^3/uL (4.0-11.0)
[2024-07-27 12:04] LABS: Alanine Aminotransferase 30 U/L (16-63); Albumin Globulin Ratio 0.9; Albumin Level 3.5 g/dL (3.4-5.0); Alkaline Phosphatase 84 U/L (46-116); Anion Gap 12.3; Aspartate Amino Transferase 26 U/L (15-37); BUN Creatinine Ratio 15.5; Bilirubin Total 0.9 mg/dL (0.2-1.0); Calcium 9.3 mg/dL (8.5-10.1); Carbon Dioxide 26.3 mmol/L (21.0-32.0); Chloride 106 mmol/L (98-107); Estimated GFR (African America >60 (>=60 mL/min/1.73m^2); Estimated GFR (Non-African Ame 53 (>=60 mL/min/1.73m^2); Globulin 3.8 g/dL; Glucose 89 mg/dL (74-106); Potassium 4.6 mmol/L (3.5-5.1); Sodium 140 mmol/L (136-145); Total Protein 7.3 g/dL (6.4-8.2)
[2024-07-28 02:15] LABS: Vitamin B12 619 pg/mL (232-1245)
[2024-07-28 17:09] LABS: Albumin 3.5 g/dL (2.9-4.4); Alpha-1-Globulin 0.2 g/dL (0.0-0.4); Alpha-2-Globulin 0.8 g/dL (0.4-1.0); Gamma Globulin 1.1 g/dL (0.4-1.8); Protein, Total 6.6 g/dL (6.0-8.5)
[2024-07-28 19:08] LABS: Free Kappa Lt Chains,S 28.4 mg/L (3.3-19.4); Free Lambda Lt Chains,S 20.1 mg/L (5.7-26.3); Kappa/Lambda Ratio,S 1.41 (0.26-1.65)
== END 2024-07-27 11:04 | disposition home or self-care (01) ==
LOC: LAB 11:06
PROVIDERS: PCP Internal Medicine
DX: D75.89 Other specified diseases of blood and blood-forming organs (principal); F03.A0 Unspecified dementia, mild, without behavioral disturbance, psychotic disturbance, mood disturbance, and anxiety
CPT/HCPCS: 36415; 80053; 82607; 82746; 83521; 83921; 84155; 84165; 84443; 85025

== ENCOUNTER 2024-07-27 11:15 | Outpatient (OUT) | payer MEDICARE, SELFPAY ==
--- OUTSIDE RECORDS SUMMARY | 2024-07-27 11:39 | XMS_ITS | CCD ---
Author Organization [facility] Care Team Providers Care Conveyor Monitor Name Role Phone MIGUEL LALA Primary Care Physician [phone] KAILASH BARNES Consulting Unavailable GEOVANY RHODES Admitting [...] Primary Care Provider Fatemeh Ramírez DO Unavailable [facility] Unavailable Miguel Lala DO Unavailable CAMACHO MOHAMUD [...] Unavailable DESIREE, FATEMEH Attending Unavailable BROWN, HAIR Narajno Attending Unavailable BROWN, HAIR A Attending Unavailable [...] Unknown (qualifier value), Unknown [facility] (1 source) Naproxen Drug Allergy 03-06-20 17 [facility] (6 sources) patient allergy list reviewed by nurse or physicia Propensity to adverse reactions 11-04-19 19 Comment:Done [place] Other (18 sources) Ciprofloxacin; Translations: [CIPROFLOXACIN] Drug Allergy 06-04-19 Unknown [facility] (17 sources) Fenoprofen; Translations: [FENOPROFEN] Drug Allergy 06-04-19 Unknown [facility] (17 sources) moxifloxacin; Translations: [MOXIFLOXACIN] Drug Allergy 06-04-19 Unknown [facility] (16 sources) Sulfonamides (Antibiotic) Propensity to adverse reactions 06-04-19 Unknown [facility] (18 sources) Iodinated Contrast Media; Translations: [IODINATED CONTRAST MEDIA] Propensity to adverse reactions 06-04-19 Unknown [facility] (2 sources) Sulfonamides (Antibiotic); Translations: [SULFA (SULFONAMIDE ANTIBIOTICS)] Propensity to adverse reactions to drug (disorder) 06-04-19 [facility] Medications Current Medications Medication Drug Class(es) [...] 05/13/20 Status: Ordered take [address] [facility] in the morning cetirizine (ZyrTEC) 5 MG [...] Active krill oil (4 sources) Start: 04-22-2024 Berbu-Fq-4-Dha -Yeh-Prpvzaa-Zib (Krill Oil) [id number] mg capsule Active 1 CAP PO Daily [...] hydrochloride 10 mg oral tablet (12 sources) R-qophsi-Y-aspart ate Receptor Antagonist Start: 06-18-2024 take 5 [...] 30 tab(s), Refills(s) 11, [facility]: [id number], 170, cm, 08/17/22 8:49:00 EDT, Height/Length Dosing, [...] pain; Note: Source Status: Continue; Provider: Dai iDxon Start: 05-12-2020 take 1 tablet by [facility] every four hours as needed for pain tramadol 50 mg oral tablet 50 mg = 1 tab(s), Oral, q4hr, PRN for pain, # 60 tab(s), Refills(s) 0 Start Date: 05/12/20 Status: Ordered take 1 tablet by [facility] every twenty-four hours traMADol HCl 50 [...] Rivera ( ) take [address] [facility] every twenty-four hours Tamsulosin HCl 0.4 MG [...] Coronary arteriosclerosis; Translations: [Atherosclerotic heart disease of [place] coronary artery without angina pectoris] Onset: 2 [...] sources) Long-term current use of anticoagulant; Translations: [salvage determiner (current) use of anticoagulants] 05-12-2020 Episodic Other aftercare (1 source) salvage determiner (current) use of aspirin; Translations: [USP CURRENT USE OF ASPIRIN] Onset: 3 Episodic Other aftercare (3 sources) Other custodial (current) drug therapy; Translations: [OTH WARP TIER CURRENT DRUG THERAPY] Onset: 3 Episodic Other aftercare (13 sources) H/O: high risk medication; Translations: [Other custodial (current) drug therapy] Episodic Other aftercare (13 sources) High risk drug monitoring status; Translations: [USP (current) use of opiate analgesic] Episodic Other aftercare (2 sources) salvage determiner (current) use of opiate analgesic; Translations: [USP (current) use of opiate analgesic] Episodic Other aftercare (1 source) salvage determiner (current) use of anticoagulants; Translations: [salvage determiner (current) use of anticoagulants] Episodic Other aftercare (5 sources) Long-term current use of drug therapy; Translations: [Other custodial (current) drug therapy] Episodic Other circulatory disease [...] 37 Stop aspirin now Normal [facility] Office Visiton 06-26-2024 Follow-up visit [id number] Annelise Olson 1935 M Date Provider Department Center 06/26/2024 [facility] CARD [facility]AS Family History Problem Relation Age of Onset Coronary artery disease Mother Coronary artery disease Father Family Status - Relation Status Age at Mother Father Level of Service:49809 [place] OFFICE/OUTPATIENT ESTABLISHED MOD MDM 30 MIN Normal [facility] CNOVSPon 06-24-2024 CNOVSP Visit (SP) Office (H EMASA) ANNELISE OLSON ([id number]) 1935 M Date Time Provider Department 06/24/24 4:00 PM MIKE VEE During your visit today, we recorded the following information about you: Temperature Pulse Respiration Blood pressure 97 degrees 63/minute 18/minute 113/72 Weight 63.6 kg Mike Vee MD 06/25/2024 1:54 PM Signed PATIENT NAME: Annelise Olson CLINIC NO.: [id number] ATTENDING PHYSICIAN: Mike Vee MD DATE OF SERVICE: June 24, [address] Miguel Lala ([facility]) [address] [place] [address] thank you for referring Annelise Olson for [...] in [address]. [address] Miguel Lala ([facility]) [address] [place] [phone] thank you for allowing me to participate in [facility], if there are any questions or concerns please do not hesitate to contact me at the number below. I spent a total of 45 minutes on the date of the service which included preparing to see the patient, [id number] patient care, completing clinical documentation, obtaining and/or reviewing separately obtained history, performing a medically appropriate examination, counseling and educating the patient/family/caregiver, ordering medications, tests, or procedures, communicating with other HCPs (not separately reported), independently interpreting results (not separately reported), communicating results to the patient/family/caregiver, and care coordination (not separately reported). Mike Vee MD. Hematology/Medical Oncology [facility] [phone] CC: Mike Vee MD 06/24/2024 4:22 PM Signed Labs today F/u in 6 months Refer (more content not included)... Normal [facility] Basophils Auto (Bld) [#/Vol] on 05-20-2024 Basophils (Bld) [#/Vol] Automated basophil count 0.0-0.1 [facility] Basophils/100 WBC Auto (Bld) on 05-20-2024 Basophils/100 WBC (Bld) Automated basophil % 0.2-2.0 [facility] Eosinophils/100 WBC Auto (Bl d)on 05-20-2024 Eosinophils/100 WBC (Bld) Automated eosinophil % 0.9-7.0 [facility] Erythrocyte distribution wid th Auto (RBC) [Ratio]on 05-20-2024 Erythrocyte distribution width (RBC) [Ratio] Erythrocyte distribution width [Ratio] by Automated count 11.0-15.0 [facility] Estimated glomerular filtrat ion rate (GFR) non- Americanon 05-20-2024 GFR/1.73 sq M.predicted among non-blacks MDRD (S/P/Bld) [Vol rate/Area] Estimated glomerular filtration rate (GFR) non- Low >=60 mL/min/1.73 m 2 [facility] Globulin Calc (S) [Mass/Vol] on 05-20-2024 Globulin (S) [Mass/Vol] Serum globulin measurement by calculation (mass/volume) [facility] Hematocrit Auto (Bld) [Volum e fraction]on 05-20-2024 Hematocrit (Bld) [Volume fraction] Hematocrit [Volume Fraction] of Blood by Automated count 42.0-54.0 [facility] Hemoglobin [Mass/volume] in Bloodon 05-20-2024 Hemoglobin (Bld) [Mass/Vol] Hemoglobin [Mass/volume] in Blood 14.0-18.0 [facility] Laboratory - Chemistry and C hemistry - challengeon 05-20-2024 Albumin [Mass/Vol] 3.6 g/dL 3.4-5.0 [facility] ALP [Catalytic activity/Vol] 83 U/L 46-116 [facility] ALT [Catalytic activity/Vol] 25 U/L 16-63 [facility] AST [Catalytic activity/Vol] 26 U/L 15-37 [facility] Bilirubin [Mass/Vol] 0.8 mg/dL 0.2-1.0 [facility] Calcium [Mass/Vol] 9.2 mg/dL 8.5-10.1 [facility] Chloride [Moles/Vol] 105 mmol/L 98-107 [facility] CO2 [Moles/Vol] 31.9 mmol/L 21.0-32.0 [facility] Creatinine [Mass/Vol] 1.21 mg/dL 0.70-1.30 [facility] GFR/1.73 sq M.predicted MDRD (S/P/Bld) [Vol rate/Area] mL/min/{1.73_m2} >=60 mL/min/1.73 m 2 [facility] Glucose [Mass/Vol] 101 mg/dL 74-106 [facility] Potassium [Moles/Vol] 4.4 mmol/L 3.5-5.1 [facility] Protein [Mass/Vol] 6.8 g/dL 6.4-8.2 [facility] Sodium [Moles/Vol] 141 mmol/L 136-145 [facility] TSH Qn 3.199 m[IU]/L 0.358-3.740 [facility] Urea nitrogen [Mass/Vol] 15.0 mg/dL 7.0-18.0 [facility] Urea nitrogen/Creatinin e [Mass ratio] 12.4 mg/mg [facility] Laboratory - Hematology and Cell countson 05-20-2024 Immature granulocytes/100 WBC (Bld) 0.0 % 0.0-0.5 [facility] Laboratory - Urinalysison Protein (U) [Mass/Vol] 19.1 mg/dL High <=11.9 [facility] Leukocytes [#/volume] correc analia for nucleated erythrocytes in Blood by Automated counon 05-20-2024 WBC corrected for nucl RBC Auto (Bld) [#/Vol] Leukocytes [#/volume] corrected for nucleated erythrocytes in Blood by Automated coun 4.0-11.0 [facility] Lymphocytes Auto (Bld) [#/Vo l]on 05-20-2024 Lymphocytes (Bld) [#/Vol] Lymphocytes [#/volume] in Blood by Automated count Low 1.2-3.8 [facility] Lymphocytes/100 WBC Auto (Bl d)on 05-20-2024 Lymphocytes/100 WBC (Bld) Lymphocytes/100 leukocytes in Blood by Automated count Low 20.5-60.0 [facility] MCH Auto (RBC) [Entitic mass ]on 05-20-2024 MCH (RBC) [Entitic mass] MCH [Entitic mass] by Automated count High 25.9-34.0 [facility] MCHC Auto (RBC) [Mass/Vol]on 05-20-2024 MCHC (RBC) [Mass/Vol] MCHC [Mass/volume] by Automated count 29.9-35.2 [facility] MCV Auto (RBC) [Entitic vol] on 05-20-2024 MCV (RBC) [Entitic vol] MCV [Entitic volume] by Automated count High 80.0-94.0 [facility] Monocytes Auto (Bld) [#/Vol] on 05-20-2024 Monocytes (Bld) [#/Vol] Automated blood monocyte count 0.3-0.8 [facility] Monocytes/100 WBC Auto (Bld) on 05-20-2024 Monocytes/100 WBC (Bld) Automated monocyte % 1.7-12.0 [facility] Neutrophils Auto (Bld) [#/Vo l]on 05-20-2024 Neutrophils (Bld) [#/Vol] Neutrophils [#/volume] in Blood by Automated count 1.4-6.5 [facility] Neutrophils/100 WBC Auto (Bl d)on 05-20-2024 Neutrophils/100 WBC (Bld) Automated neutrophil % 43.0-75.0 [facility] No Panel Informationon 05-20 Eosinophils # (Auto) 0.1 10 3/uL 0.0-0.7 [facility] Immature Granulocyte # (Auto) 0.00 10 3/uL 0.00-0.03 [facility] Urine Random Creatinine 72.04 mg/dL 20.00-300.0 0 [facility] Platelet mean volume Auto (B ld) [Entitic vol]on 05-20-2024 Platelet mean volume (Bld) [Entitic vol] Platelet mean volume [Entitic volume] in Blood by Automated count Low 9.5-13.5 [facility] Platelets Auto (Bld) [#/Vol] on 05-20-2024 Platelets (Bld) [#/Vol] Platelets [#/volume] in Blood by Automated count 150-450 [facility] RBC Auto (Bld) [#/Vol]on RBC (Bld) [#/Vol] Erythrocytes [#/volu me] in Blood by Automated count Low 4.70-6.10 [facility] Serum or plasma albumin/glob ulin mass ratioon 05-20-2024 Albumin/Globulin [Mass ratio] Serum or plasma albumin/globulin mass ratio [facility] Serum or plasma anion gap de terminationon 05-20-2024 Anion gap [Moles/Vol] Serum or plasma anion gap determination [facility] Urine protein/creatinine rat ioon 05-20-2024 Protein/Creatinine (U) [Ratio] Urine protein/creatinine ratio [facility] 36on 05-05-2024 36 Calling to have orde r for cardiac rehab faxed to them. Faxed [phone] [facility] 37on 04-24-2024 37 Cardiac rehab at [facility] Follow-Upon 04-24-2024 Follow-Up [id number] Annelise Olson 1935 M Date Provider Department Center 04/24/2024 [facility] Family History Problem Relation Age of Onset Coronary artery disease Mother Coronary artery disease Father Family Status - Relation Status Age at Mother Father Level of Service:09119 [place] OFFICE/OUTPATIENT ESTABLISHED MOD MDM 30 MIN Reason for Visit and Comments: Hospital Follow-up [832] myocardial infarction [Other] Normal [facility] 30on 04-15-2024 30 The patient is Moder ately Stable - Low risk of patient condition declining or worsening The patient's goals for the shift include comfort The clinical goals for the shift include safety [facility] BASIC METABOLIC PANELon 04-05 Anion gap [Moles/Vol] 10 mmol/L Normal 7-20 [facility] Comment on above: Performed By: #### L [id number] ####[facility] ([employer])[address] [place] [address] Calcium [Mass/Vol] 8.7 mg/dL Normal 8.6-10.3 [facility] Comment on above: Performed By: #### L [id number] ####[facility] ([employer])[address] [place] [address] Chloride [Moles/Vol] 107 mmol/L Normal 98-107 [facility] Comment on above: Performed By: #### L [id number] ####[facility] ([employer])[address] [place] [address] CO2 [Moles/Vol] 23 mmol/L Normal 21-31 [facility] Comment on above: Performed By: #### L [id number] ####[facility] ([facility])[address] [place] [address] Creatinine [Mass/Vol] 1.17 mg/dL Normal 0.70-1.30 [facility] Comment on above: Performed By: #### L [id number] ####[facility] ([facility])[address] [place] [address] GLOMERULAR FILTRATION RATE ML/MIN/1.73 SQ M.PREDICTED 60.3 mL/min/1.73m*2 Normal >60.0 [facility] Comment on above: Result Comment: The [facility]???s estimated glomerular filtration rate (eGFR) will no [...] of individuals. Performed By: #### L [id number] ####[facility] ([facility])[address] [place] [address] Glucose [Mass/Vol] 99 mg/dL Normal 70-100 [facility] Comment on above: Performed By: #### L [id number] ####[facility] ([facility])[address] [place] [address] Potassium [Moles/Vol] 3.9 mmol/L Normal 3.5-5.1 [facility] Comment on above: Performed By: #### L [id number] ####[facility] ([facility])[address] [place] [address] Sodium [Moles/Vol] 136 mmol/L Normal 136-145 [facility] Comment on above: Performed By: #### L [id number] ####[facility] ([facility])[address] [place] [address] Urea nitrogen [Mass/Vol] 20 mg/dL Normal 7-25 [facility] Comment on above: Performed By: #### L [id number] ####[facility] ([facility])[address] [place] [address] UREA NITROGEN/CREATININ E (MASS RATIO) IN SER/PLAS 17.1 Normal [facility] Comment on above: Performed By: #### L [id number] ####[facility] ([facility])[address] [place] [address] CBCon 04-15-2024 Erythrocyte distribution width (RBC) [Ratio] 12.4 % Normal 11.5-15.0 [facility] Comment on above: Performed By: #### L [id number] ####[facility] ([facility])[address] [place] [address] ERYTHROCYTE MEAN CORPUSCULAR HEMOGLOBIN CONCENTRATION (G/DL) BY AUTOMATED 34.2 g/dL Normal 32.0-35.0 [facility] Comment on above: Performed By: #### L [id number] ####[facility] ([facility])[address] [place] [address] Hematocrit (Bld) [Volume fraction] 39.5 % Normal 39.0-55.0 [facility] Comment on above: Performed By: #### L [id number] ####[facility] ([facility])[address] [place] [address] Hemoglobin (Bld) [Mass/Vol] 13.5 g/dL Normal 13.0-17.0 [facility] Comment on above: Performed By: #### L [id number] ####[facility] ([facility])[address] [place] [address] IMMATURE PLATELET FRACTION % 1.6 % Normal 0.8-6.3 [facility] Comment on above: Performed By: #### L [id number] ####[facility] ([facility])[address] [place] [address] MCH (RBC) [Entitic mass] 34.9 pg High 27.0-33.0 [facility] Comment on above: Performed By: #### L [id number] ####[facility] ([facility])[address] [place] [address] MCV (RBC) [Entitic vol] 102.1 fL High 82.0-98.0 [facility] Comment on above: Performed By: #### L [id number] ####[facility] ([facility])[address] [place] [address] PLATELETS (10*3/UL) IN BLOOD AUTOMATED COUNT 140 10*3/uL Low 150-400 [facility] Comment on above: Performed By: #### L [id number] ####[facility] ([facility])[address] [place] [address] RBC (Bld) [#/Vol] 3.87 10*6/uL Low 4.20-5.70 [facility] Comment on above: Performed By: #### L [id number] ####[facility] ([facility])[address] [place] [address] WBC (Bld) [#/Vol] 5.98 10*3/uL Normal 4.00-10.60 [facility] Comment on above: Performed By: #### L [id number] ####[facility] ([facility])[address] [place] [address] CBC WITH AUTO DIFFERENTIALon 04-15-2024 Basophils (Bld) [#/Vol] 0.03 10*3/uL Normal 0.00-0.20 [facility] Comment on above: Performed By: #### L [id number] ####[facility] ([facility])[address] [place] [address] Basophils/100 WBC (Bld) 0.5 % Normal 0.0-1.0 [facility] Comment on above: Performed By: #### L [id number] ####[facility] ([facility])[address] [place] [address] Eosinophils (Bld) [#/Vol] 0.20 10*3/uL Normal 0.00-0.50 [facility] Comment on above: Performed By: #### L [id number] ####[facility] ([facility])[address] [place] [address] Eosinophils/100 WBC (Bld) 3.4 % Normal 0.0-6.0 [facility] Comment on above: Performed By: #### L [id number] ####[facility] ([facility])[address] [place] [address] Erythrocyte distribution width (RBC) [Ratio] 12.3 % Normal 11.5-15.0 [facility] Comment on above: Performed By: #### L [id number] ####[facility] ([facility])[address] [place] [address] ERYTHROCYTE MEAN CORPUSCULAR HEMOGLOBIN CONCENTRATION (G/DL) BY AUTOMATED 33.8 g/dL Normal 32.0-35.0 [facility] Comment on above: Performed By: #### L [id number] ####[facility] ([facility])[address] [place] [address] Hematocrit (Bld) [Volume fraction] 40.8 % Normal 39.0-55.0 [facility] Comment on above: Performed By: #### L [id number] ####[facility] ([facility])[address] [place] [address] Hemoglobin (Bld) [Mass/Vol] 13.8 g/dL Normal 13.0-17.0 [facility] Comment on above: Performed By: #### L [id number] ####[facility] ([facility])[address] [place] [address] Immature granulocytes (Bld) [#/Vol] 0.01 10*3/uL Normal 0.00-0.20 [facility] Comment on above: Performed By: #### L [id number] ####[facility] ([facility])[address] [place] [address] Immature granulocytes/100 WBC (Bld) 0.2 % Normal 0.0-1.0 [facility] Comment on above: Performed By: #### L [id number] ####[facility] ([facility])[address] [place] [address] Lymphocytes (Bld) [#/Vol] 1.28 10*3/uL Normal 1.20-4.00 [facility] Comment on above: Performed By: #### L [id number] ####[facility] ([facility])[address] [place] [address] Lymphocytes/100 WBC (Bld) 21.5 % Normal 20.0-45.0 [facility] Comment on above: Performed By: #### L [id number] ####[facility] ([facility])[address] [place] [address] MCH (RBC) [Entitic mass] 34.5 pg High 27.0-33.0 [facility] Comment on above: Performed By: #### L [id number] ####[facility] ([facility])[address] [place] [address] MCV (RBC) [Entitic vol] 102.0 fL High 82.0-98.0 [facility] Comment on above: Performed By: #### L [id number] ####[facility] ([facility])[address] [place] [address] Monocytes (Bld) [#/Vol] 0.83 10*3/uL Normal 0.10-1.00 [facility] Comment on above: Performed By: #### L [id number] ####[facility] ([facility])[address] [place] [address] Monocytes/100 WBC (Bld) 14.0 % High 5.0-12.0 [facility] Comment on above: Performed By: #### L [id number] ####[facility] ([facility])[address] [place] [address] Neutrophils (Bld) [#/Vol] 3.59 10*3/uL Normal 1.60-7.60 [facility] Comment on above: Performed By: #### L [id number] ####[facility] ([facility])[address] [place] [address] Neutrophils/100 WBC (Bld) 60.4 % Normal 40.0-72.0 [facility] Comment on above: Performed By: #### L [id number] ####[facility] ([facility])[address] [place] [address] NRBC (PER 100 WBCS) BY AUTOMATED COUNT 0.0 % Normal 0 [facility] Comment on above: Performed By: #### L [id number] ####[facility] ([facility])[address] [place] [address] PLATELETS (10*3/UL) IN BLOOD AUTOMATED COUNT 146 10*3/uL Low 150-400 [facility] Comment on above: Performed By: #### L [id number] ####[facility] ([facility])[address] [place] [address] RBC (Bld) [#/Vol] 4.00 10*6/uL Low 4.20-5.70 [facility] Comment on above: Performed By: #### L [id number] ####[facility] ([facility])[address] [place] [address] WBC (Bld) [#/Vol] 5.94 10*3/uL Normal 4.00-10.60 [facility] Comment on above: Performed By: #### L [id number] ####[facility] ([facility])[address] [place] [address] MAGNESIUMon 04-15-2024 Magnesium [Mass/Vol] 1.9 mg/dL Normal 1.9-2.7 [facility] Comment on above: Performed By: #### L [id number] ####[facility] ([facility])[address] [place] [address] 30on 04-14-2024 30 The patient is Moder [...] pressure ulcer prevention bundle as indicated Normal [facility] 30 The patient is Moder ately Stable [...] and maintained or improved Outcome: Progressing Normal [facility] 30 Daily Case Managemen t Update Multidisciplinary [...] OT? Answer: D/C recs 04/12/24 1626 Normal [facility] 30 The patient is Moder ately Stable - Low risk of patient condition declining or worsening The patient's goals for the shift include rest; comfort The clinical goals for the shift include VSS, no chest pain Normal [facility] BASIC METABOLIC PANELon 04-05 Anion gap [Moles/Vol] 12 mmol/L Normal 7-20 [facility] Comment on above: Performed By: #### L [id number] #### [facility] ([facility]) [address] [place] [address] Calcium [Mass/Vol] 8.6 mg/dL Normal 8.6-10.3 [facility] Comment on above: Performed By: #### L [id number] #### [facility] ([facility]) [address] [place] [address] Chloride [Moles/Vol] 104 mmol/L Normal 98-107 [facility] Comment on above: Performed By: #### L [id number] #### [facility] ([facility]) [address] [place] [address] CO2 [Moles/Vol] 21 mmol/L Normal 21-31 [facility] Comment on above: Performed By: #### L [id number] #### [facility] ([facility]) [address] [place] [address] Creatinine [Mass/Vol] 1.12 mg/dL Normal 0.70-1.30 [facility] Comment on above: Performed By: #### L [id number] #### [facility] ([facility]) [address] [place] [address] GLOMERULAR FILTRATION RATE ML/MIN/1.73 SQ M.PREDICTED 63.6 mL/min/1.73m*2 Normal >60.0 [facility] Comment on above: Result Comment: The [facility]???s estimated glomerular filtration rate (eGFR) will no [...] group of individuals. Performed By: #### L [id number] #### [facility] ([facility]) [address] [place] [address] Glucose [Mass/Vol] 94 mg/dL Normal 70-100 [facility] Comment on above: Performed By: #### L [id number] #### [facility] ([facility]) [address] [place] [address] Potassium [Moles/Vol] 3.8 mmol/L Normal 3.5-5.1 [facility] Comment on above: Performed By: #### L [id number] #### [facility] ([facility]) [address] [place] [address] Sodium [Moles/Vol] 133 mmol/L Low 136-145 [facility] Comment on above: Performed By: #### L [id number] #### [facility] ([facility]) [address] [place] [address] Urea nitrogen [Mass/Vol] 25 mg/dL Normal 7-25 [facility] Comment on above: Performed By: #### L [id number] #### [facility] ([facility]) [address] [place] [address] UREA NITROGEN/CREATININ E (MASS RATIO) IN SER/PLAS 22.3 Normal [facility] Comment on above: Performed By: #### L [id number] #### [facility] ([facility]) [address] [place] [address] CBC WITH AUTO DIFFERENTIALon 04-14-2024 Basophils (Bld) [#/Vol] 0.03 10*3/uL Normal 0.00-0.20 [facility] Comment on above: Performed By: #### L [id number] #### [facility] ([facility]) [address] [place] [address] Basophils/100 WBC (Bld) 0.5 % Normal 0.0-1.0 [facility] Comment on above: Performed By: #### L [id number] #### [facility] ([facility]) [address] [place] [address] Eosinophils (Bld) [#/Vol] 0.17 10*3/uL Normal 0.00-0.50 [facility] Comment on above: Performed By: #### L [id number] #### [facility] ([facility]) [address] [place] [address] Eosinophils/100 WBC (Bld) 2.8 % Normal 0.0-6.0 [facility] Comment on above: Performed By: #### L [id number] #### [facility] ([facility]) [address] [place] [address] Erythrocyte distribution width (RBC) [Ratio] 12.4 % Normal 11.5-15.0 [facility] Comment on above: Performed By: #### L [id number] #### [facility] ([facility]) [address] [place] [address] ERYTHROCYTE MEAN CORPUSCULAR HEMOGLOBIN CONCENTRATION (G/DL) BY AUTOMATED 34.9 g/dL Normal 32.0-35.0 [facility] Comment on above: Performed By: #### L [id number] #### [facility] ([facility]) [address] [place] [address] Hematocrit (Bld) [Volume fraction] 40.7 % Normal 39.0-55.0 [facility] Comment on above: Performed By: #### L [id number] #### [facility] ([facility]) [address] [place] [address] Hemoglobin (Bld) [Mass/Vol] 14.2 g/dL Normal 13.0-17.0 [facility] Comment on above: Performed By: #### L [id number] #### [facility] ([facility]) [address] [place] [address] Immature granulocytes (Bld) [#/Vol] 0.02 10*3/uL Normal 0.00-0.20 [facility] Comment on above: Performed By: #### L [id number] #### [facility] ([facility]) [address] [place] [address] Immature granulocytes/100 WBC (Bld) 0.3 % Normal 0.0-1.0 [facility] Comment on above: Performed By: #### L [id number] #### [facility] ([facility]) [address] [place] [address] Lymphocytes (Bld) [#/Vol] 1.29 10*3/uL Normal 1.20-4.00 [facility] Comment on above: Performed By: #### L [id number] #### [facility] ([facility]) [address] [place] [address] Lymphocytes/100 WBC (Bld) 21.6 % Normal 20.0-45.0 [facility] Comment on above: Performed By: #### L [id number] #### [facility] ([facility]) [address] [place] [address] MCH (RBC) [Entitic mass] 34.7 pg High 27.0-33.0 [facility] Comment on above: Performed By: #### L [id number] #### [facility] ([facility]) [address] [place] [address] MCV (RBC) [Entitic vol] 99.5 fL High 82.0-98.0 [facility] Comment on above: Performed By: #### L [id number] #### [facility] ([facility]) [address] [place] [address] Monocytes (Bld) [#/Vol] 0.81 10*3/uL Normal 0.10-1.00 [facility] Comment on above: Performed By: #### L [id number] #### [facility] ([facility]) [address] [place] [address] Monocytes/100 WBC (Bld) 13.6 % High 5.0-12.0 [facility] Comment on above: Performed By: #### L [id number] #### [facility] ([facility]) [address] [place] [address] Neutrophils (Bld) [#/Vol] 3.65 10*3/uL Normal 1.60-7.60 [facility] Comment on above: Performed By: #### L [id number] #### [facility] ([facility]) [address] [place] [address] Neutrophils/100 WBC (Bld) 61.2 % Normal 40.0-72.0 [facility] Comment on above: Performed By: #### L [id number] #### [facility] ([facility]) [address] [place] [address] NRBC (PER 100 WBCS) BY AUTOMATED COUNT 0.0 % Normal 0 [facility] Comment on above: Performed By: #### L [id number] #### [facility] ([facility]) [address] [place] [address] PLATELETS (10*3/UL) IN BLOOD AUTOMATED COUNT 147 10*3/uL Low 150-400 [facility] Comment on above: Performed By: #### L [id number] #### [facility] ([facility]) [address] [place] [address] RBC (Bld) [#/Vol] 4.09 10*6/uL Low 4.20-5.70 [facility] Comment on above: Performed By: #### L [id number] #### [facility] ([facility]) [address] [place] [address] WBC (Bld) [#/Vol] 5.97 10*3/uL Normal 4.00-10.60 [facility] Comment on above: Performed By: #### L [id number] #### [facility] ([facility]) [address] [place] [address] MAGNESIUMon 04-14-2024 Magnesium [Mass/Vol] 2.0 mg/dL Normal 1.9-2.7 [facility] Comment on above: Performed By: #### L [id number] #### [facility] ([facility]) [address] [place] [address] NURSNOTEon 04-14-2024 NURSNOTE Bedside shift report was done at 0705. Nightshift RN had been slowly removing air from TR band. Upon entering room together, bond underwriter and nightshift RN noticed the cath site was oozing. Nightshift RN inserted air back in for a total of 12ml. The oozing stopped. Distribution Systems Superintendent informed returns processor, Dr. Lindsay, of the issue and he came to assess the site and the patient. Dr. Lindsay instructed bond underwriter to keep TR band in place for 1 hour and then begin slowly removing air per protocol. Distribution Systems Superintendent continued cath site checks frequently and at 0830 attempted to take 2ml of air out. After 2ml of air taken out, site began to ooze again. Distribution Systems Superintendent informed Dr. Lindsay and he again assessed the site and the patient. Dr. Lindsya informed bond underwriter to put the 2ml of air back in and await further instruction, as he would reach out to Dr. Manuel. Distribution Systems Superintendent continued frequent cath site checks and at [address] Lindsay it appeared to be oozing again despite the TR band being inflated with 12ml of air and offered to hold pressure. Dr. Lindsay instructed to keep TR band in place. Distribution Systems Superintendent continues frequent cath site checks. Normal [facility] 30on 04-13-2024 30 Daily Case Managemen t Update Multidisciplinary rounds have been completed. Barriers to Discharge: Patient from [facility] with NSTEMI, trop 1.0 and trending, [...] OT? Answer: D/C recs 04/12/24 1626 Normal [facility] 30 The patient is Moder ately Stable [...] and maintained or improved Outcome: Progressing Normal [facility] 30 The patient is Moder ately Stable - Low risk of patient condition declining or worsening The patient's goals for the shift include Rest/Comfort The clinical goals for the shift include Stable vital signs Normal [facility] AMMONIAon 04-13-2024 AMMONIA (UMOL/L) IN PLASMA 31 umol/L Normal 18-72 [facility] Comment on above: Performed By: #### L [id number] #### [facility] ([facility]) [address] [place] [address] ANESon 04-13-2024 ANES -------- Attestation signed by Mason Almeida MD at 04/13/2024 11:42 PM I have seen and examined Mr. Olson with Dr. Bray and agree with her history, exam and assessment.. Patient: Annelise Olson Procedure Information Date/Time: 04/13/24 2300 Procedures: Coronary bypass graft study Coronary angiography Location: [facility] / [facility] (Cath) Providers: Mason Almeida MD [...] discussed with attending. Additional Equipment Requests Normal [facility] APTTon 04-13-2024 ACTIVATED PARTIAL THROMBOPLASTIN TIME IN PPP BY COAGULATION ASSAY 106.3 Seconds High 25.0-35.0 [facility] Comment on above: Result Comment: Clin ical significance of the APTT is questionable in the presence of heparin. Performed By: #### L [id number] #### [facility] ([facility]) [address] [place] [address] ACTIVATED PARTIAL THROMBOPLASTIN TIME IN PPP BY COAGULATION ASSAY 162.6 Seconds Critically high 25.0-35.0 [facility] Comment on above: Result Comment: Clin ical significance of the APTT is questionable in the presence of heparin. Performed By: #### L [id number] ####[facility] ([facility])[address] [place] [address] ACTIVATED PARTIAL THROMBOPLASTIN TIME IN PPP BY COAGULATION ASSAY 168.7 Seconds Critically high 25.0-35.0 [facility] Comment on above: Result Comment: Clin ical significance of the APTT is questionable in the presence of heparin. Performed By: #### L [id number] ####[facility] ([facility])[address] [place] [address] ACTIVATED PARTIAL THROMBOPLASTIN TIME IN PPP BY COAGULATION ASSAY 137.5 Seconds Critically high 25.0-35.0 [facility] Comment on above: Result Comment: Clin ical significance of the APTT is questionable in the presence of heparin. Performed By: #### L [id number] ####[facility] ([facility])[address] [place] [address] BASIC METABOLIC PANELon 12-0 Anion gap [Moles/Vol] 10 mmol/L Normal 7-20 [facility] Comment on above: Performed By: #### L [id number] ####[facility] ([facility])[address] [place] [address] Calcium [Mass/Vol] 8.5 mg/dL Low 8.6-10.3 [facility] Comment on above: Performed By: #### L [id number] ####[facility] ([facility])[address] [place] [address] Chloride [Moles/Vol] 104 mmol/L Normal 98-107 [facility] Comment on above: Performed By: #### L [id number] ####[facility] ([facility])[address] [place] [address] CO2 [Moles/Vol] 25 mmol/L Normal 21-31 [facility] Comment on above: Performed By: #### L [id number] ####[facility] ([facility])[address] [place] [address] Creatinine [Mass/Vol] 1.26 mg/dL Normal 0.70-1.30 [facility] Comment on above: Performed By: #### L [id number] ####[facility] ([facility])[address] [place] [address] GLOMERULAR FILTRATION RATE ML/MIN/1.73 SQ M.PREDICTED 55.2 mL/min/1.73m*2 Low >60.0 [facility] Comment on above: Result Comment: The [facility]???s estimated glomerular filtration rate (eGFR) will no [...] of individuals. Performed By: #### L [id number] ####[facility] ([facility])[address] [place] [address] Glucose [Mass/Vol] 88 mg/dL Normal 70-100 [facility] Comment on above: Performed By: #### L [id number] ####[facility] ([facility])[address] [place] [address] Potassium [Moles/Vol] 3.7 mmol/L Normal 3.5-5.1 [facility] Comment on above: Performed By: #### L [id number] ####[facility] ([facility])[address] [place] [address] Sodium [Moles/Vol] 135 mmol/L Low 136-145 [facility] Comment on above: Performed By: #### L [id number] ####[facility] ([facility])[address] [facility] [place] [address] Urea nitrogen [Mass/Vol] 25 mg/dL Normal 7-25 [facility] Comment on above: Performed By: #### L [id number] ####[facility] ([facility])[address] [place] [address] UREA NITROGEN/CREATININ E (MASS RATIO) IN SER/PLAS 19.8 Normal [facility] Comment on above: Performed By: #### L [id number] ####[facility] ([facility])[address] [place] [address] CBC WITH AUTO DIFFERENTIALon 04-13-2024 Basophils (Bld) [#/Vol] 0.05 10*3/uL Normal 0.00-0.20 [facility] Comment on above: Performed By: #### L [id number] #### [facility] ([facility]) [address] [place] [address] Basophils/100 WBC (Bld) 0.8 % Normal 0.0-1.0 [facility] Comment on above: Performed By: #### L [id number] #### [facility] ([facility]) [address] [place] [address] Eosinophils (Bld) [#/Vol] 0.27 10*3/uL Normal 0.00-0.50 [facility] Comment on above: Performed By: #### L [id number] #### [facility] ([facility]) [address] [place] [address] Eosinophils/100 WBC (Bld) 4.1 % Normal 0.0-6.0 [facility] Comment on above: Performed By: #### L [id number] #### [facility] ([facility]) [address] [place] [address] Erythrocyte distribution width (RBC) [Ratio] 12.6 % Normal 11.5-15.0 [facility] Comment on above: Performed By: #### L [id number] #### [facility] ([facility]) [address] [place] [address] ERYTHROCYTE MEAN CORPUSCULAR HEMOGLOBIN CONCENTRATION (G/DL) BY AUTOMATED 34.2 g/dL Normal 32.0-35.0 [facility] Comment on above: Performed By: #### L [id number] #### [facility] ([facility]) [address] [place] [address] Hematocrit (Bld) [Volume fraction] 46.8 % Normal 39.0-55.0 [facility] Comment on above: Performed By: #### L [id number] #### [facility] ([facility]) [address] [place] [address] Hemoglobin (Bld) [Mass/Vol] 16.0 g/dL Normal 13.0-17.0 [facility] Comment on above: Performed By: #### L [id number] #### [facility] ([facility]) [address] [place] [address] Immature granulocytes (Bld) [#/Vol] 0.02 10*3/uL Normal 0.00-0.20 [facility] Comment on above: Performed By: #### L [id number] #### [facility] ([facility]) [address] [place] [address] Immature granulocytes/100 WBC (Bld) 0.3 % Normal 0.0-1.0 [facility] Comment on above: Performed By: #### L [id number] #### [facility] ([facility]) [address] [place] [address] Lymphocytes (Bld) [#/Vol] 1.65 10*3/uL Normal 1.20-4.00 [facility] Comment on above: Performed By: #### L [id number] #### [facility] ([facility]) [address] [place] [address] Lymphocytes/100 WBC (Bld) 25.0 % Normal 20.0-45.0 [facility] Comment on above: Performed By: #### L [id number] #### [facility] ([facility]) [address] [place] [address] MCH (RBC) [Entitic mass] 34.6 pg High 27.0-33.0 [facility] Comment on above: Performed By: #### L [id number] #### [facility] ([facility]) [address] [place] [address] MCV (RBC) [Entitic vol] 101.3 fL High 82.0-98.0 [facility] Comment on above: Performed By: #### L [id number] #### [facility] ([facility]) [address] [place] [address] Monocytes (Bld) [#/Vol] 0.81 10*3/uL Normal 0.10-1.00 [facility] Comment on above: Performed By: #### L [id number] #### [facility] ([facility]) [address] [place] [address] Monocytes/100 WBC (Bld) 12.3 % High 5.0-12.0 [facility] Comment on above: Performed By: #### L [id number] #### [facility] ([facility]) [address] [place] [address] Neutrophils (Bld) [#/Vol] 3.80 10*3/uL Normal 1.60-7.60 [facility] Comment on above: Performed By: #### L [id number] #### [facility] ([facility]) [address] [place] [address] Neutrophils/100 WBC (Bld) 57.5 % Normal 40.0-72.0 [facility] Comment on above: Performed By: #### L [id number] #### [facility] ([facility]) [address] [place] [address] NRBC (PER 100 WBCS) BY AUTOMATED COUNT 0.0 % Normal 0 [facility] Comment on above: Performed By: #### L [id number] #### [facility] ([facility]) [address] [place] [address] PLATELETS (10*3/UL) IN BLOOD AUTOMATED COUNT 167 10*3/uL Normal 150-400 [facility] Comment on above: Performed By: #### L [id number] #### [facility] ([facility]) [address] [place] [address] RBC (Bld) [#/Vol] 4.62 10*6/uL Normal 4.20-5.70 [facility] Comment on above: Performed By: #### L [id number] #### [facility] ([facility]) [address] [place] [address] WBC (Bld) [#/Vol] 6.60 10*3/uL Normal 4.00-10.60 [facility] Comment on above: Performed By: #### L [id number] #### [facility] ([facility]) [address] [place] [address] Basophils (Bld) [#/Vol] 0.03 10*3/uL Normal 0.00-0.20 [facility] Comment on above: Performed By: #### L [id number] #### [facility] ([facility]) [address] [place] [address] Basophils/100 WBC (Bld) 0.6 % Normal 0.0-1.0 [facility] Comment on above: Performed By: #### L [id number] #### [facility] ([facility]) [address] [place] [address] Eosinophils (Bld) [#/Vol] 0.33 10*3/uL Normal 0.00-0.50 [facility] Comment on above: Performed By: #### L [id number] #### [facility] ([facility]) [address] [place] [address] Eosinophils/100 WBC (Bld) 6.3 % High 0.0-6.0 [facility] Comment on above: Performed By: #### L [id number] #### [facility] ([facility]) [address] [place] [address] Erythrocyte distribution width (RBC) [Ratio] 12.5 % Normal 11.5-15.0 [facility] Comment on above: Performed By: #### L [id number] #### [facility] ([facility]) [address] [place] [address] ERYTHROCYTE MEAN CORPUSCULAR HEMOGLOBIN CONCENTRATION (G/DL) BY AUTOMATED 34.3 g/dL Normal 32.0-35.0 [facility] Comment on above: Performed By: #### L [id number] #### [facility] ([facility]) [address] [place] [address] Hematocrit (Bld) [Volume fraction] 41.7 % Normal 39.0-55.0 [facility] Comment on above: Result Comment: PV = 48.7 @ 04/12/24 Performed By: #### L [id number] #### [facility] ([facility]) [address] [place] [address] Hemoglobin (Bld) [Mass/Vol] 14.3 g/dL Normal 13.0-17.0 [facility] Comment on above: Result Comment: PV = 16.9 @ 04/12/24 Performed By: #### L [id number] #### [facility] ([facility]) [address] [place] [address] Immature granulocytes (Bld) [#/Vol] 0.01 10*3/uL Normal 0.00-0.20 [facility] Comment on above: Performed By: #### L [id number] #### [facility] ([facility]) [address] [place] [address] Immature granulocytes/100 WBC (Bld) 0.2 % Normal 0.0-1.0 [facility] Comment on above: Performed By: #### L [id number] #### [facility] ([facility]) [address] [place] [address] Lymphocytes (Bld) [#/Vol] 1.36 10*3/uL Normal 1.20-4.00 [facility] Comment on above: Performed By: #### L [id number] #### [facility] ([facility]) [address] [place] [address] Lymphocytes/100 WBC (Bld) 26.1 % Normal 20.0-45.0 [facility] Comment on above: Performed By: #### L [id number] #### [facility] ([facility]) [address] [place] [address] MCH (RBC) [Entitic mass] 34.7 pg High 27.0-33.0 [facility] Comment on above: Performed By: #### L [id number] #### [facility] ([facility]) [address] [facility] [place] [address] MCV (RBC) [Entitic vol] 101.2 fL High 82.0-98.0 [facility] Comment on above: Performed By: #### L [id number] #### [facility] ([facility]) [address] [place] [address] Monocytes (Bld) [#/Vol] 0.63 10*3/uL Normal 0.10-1.00 [facility] Comment on above: Performed By: #### L [id number] #### [facility] ([facility]) [address] [place] [address] Monocytes/100 WBC (Bld) 12.1 % High 5.0-12.0 [facility] Comment on above: Performed By: #### L [id number] #### [facility] ([facility]) [address] [place] [address] Neutrophils (Bld) [#/Vol] 2.86 10*3/uL Normal 1.60-7.60 [facility] Comment on above: Performed By: #### L [id number] #### [facility] ([facility]) [address] [place] [address] Neutrophils/100 WBC (Bld) 54.7 % Normal 40.0-72.0 [facility] Comment on above: Performed By: #### L [id number] #### [facility] ([facility]) [address] [place] [address] NRBC (PER 100 WBCS) BY AUTOMATED COUNT 0.0 % Normal 0 [facility] Comment on above: Performed By: #### L [id number] #### [facility] ([facility]) [address] [place] [address] PLATELETS (10*3/UL) IN BLOOD AUTOMATED COUNT 152 10*3/uL Normal 150-400 [facility] Comment on above: Performed By: #### L [id number] #### [facility] ([facility]) [address] [place] [address] RBC (Bld) [#/Vol] 4.12 10*6/uL Low 4.20-5.70 [facility] Comment on above: Performed By: #### L [id number] #### [facility] ([facility]) [address] [place] [address] WBC (Bld) [#/Vol] 5.22 10*3/uL Normal 4.00-10.60 [facility] Comment on above: Performed By: #### L [id number] #### [facility] ([facility]) [address] [place] [address] COMPREHENSIVE METABOLIC PANE Yonatan 04-13-2024 Albumin [Mass/Vol] 4.3 g/dL Normal 3.5-5.7 [facility] Comment on above: Performed By: #### L [id number] ####[facility] ([facility])[address] [place] [address] ALP [Catalytic activity/Vol] 79 U/L Normal 34-104 [facility] Comment on above: Performed By: #### L [id number] ####[facility] ([facility])[address] [place] [address] ALT [Catalytic activity/Vol] 11 U/L Normal 7-52 [facility] Comment on above: Performed By: #### L [id number] ####[facility] ([facility])[address] [place] [address] Anion gap [Moles/Vol] 13 mmol/L Normal 7-20 [facility] Comment on above: Performed By: #### L [id number] ####[facility] ([facility])[address] [place] [address] AST [Catalytic activity/Vol] 27 U/L Normal 13-39 [facility] Comment on above: Performed By: #### L [id number] ####[facility] LAB ([facility])[address], [place] [address] Bilirubin [Mass/Vol] 1.1 mg/dL High 0.3-1.0 [facility] Comment on above: Performed By: #### L [id number] ####[facility] LAB ([facility])[address] [place] [address] Calcium [Mass/Vol] 9.4 mg/dL Normal 8.6-10.3 [facility] Comment on above: Performed By: #### L [id number] ####[facility] LAB ([facility])[address] [place] [address] Chloride [Moles/Vol] 100 mmol/L Normal 98-107 [facility] Comment on above: Performed By: #### L [id number] ####[facility] LAB ([facility])[address] [place] [address] CO2 [Moles/Vol] 25 mmol/L Normal 21-31 [facility] Comment on above: Performed By: #### L [id number] ####[facility] LAB ([facility])[address], [place] [address] Creatinine [Mass/Vol] 1.32 mg/dL High 0.70-1.30 [facility] Comment on above: Performed By: #### L [id number] ####[facility] LAB ([facility])[address] [place] [address] GLOMERULAR FILTRATION RATE ML/MIN/1.73 SQ M.PREDICTED 52.2 mL/min/1.73m*2 Low >60.0 [facility] Comment on above: Result Comment: The [facility]???s estimated glomerular filtration rate (eGFR) will no [...] of individuals. Performed By: #### L [id number] ####[facility] LAB ([facility])[address] [place] [address] Glucose [Mass/Vol] 106 mg/dL High 70-100 [facility] Comment on above: Performed By: #### L [id number] ####[facility] LAB ([facility])[address] [place] [address] Potassium [Moles/Vol] 3.9 mmol/L Normal 3.5-5.1 [facility] Comment on above: Performed By: #### L [id number] ####[facility] LAB ([facility])[address] [place] [address] Protein [Mass/Vol] 7.3 g/dL Normal 6.0-8.3 [facility] Comment on above: Performed By: #### L [id number] ####[facility] LAB ([facility])[address] [place] [address] Sodium [Moles/Vol] 134 mmol/L Low 136-145 [facility] Comment on above: Performed By: #### L [id number] ####[facility] LAB ([facility])[address] [place] [address] Urea nitrogen [Mass/Vol] 27 mg/dL High 7-25 [facility] Comment on above: Performed By: #### L [id number] ####[facility] LAB ([facility])[address] [place] [address] UREA NITROGEN/CREATININ E (MASS RATIO) IN SER/PLAS 20.5 Normal [facility] Comment on above: Performed By: #### L [id number] ####[facility] LAB ([facility])[address] [place] [address] CONSULTon 04-13-2024 CONSULT -------- Attestation signed by [...] prompting activation of EMS and transport to [facility]. The patient described the pain as [...] Given that the patient is established with [facility] cardiology, he was transferred [...] oral, Daily, Do not crush or chew. svzba-sc-6-lvc-fec-jwpkwfx-a st (krill oil) 1,771-298-44-80 mg capsule 90 mg, oral, Daily lisinopril [...] or chew. (more content not included)... Normal [facility] CT HEAD WO IV CONTRASTon CT HEAD [...] signed: Alexy Bauer. 7 Invalid [facility] -------- Attestation signed by Mason [...] to proceed. Signed, Radha Bray MD PGY-4 Technical Sales Representative Pager: [phone] Normal [facility] -------- Attestation signed by Joseluis Manuel [...] prompting activation of EMS and transport to [facility]. The patient described the pain as [...] Given that the patient is established with [facility] cardiology, he was transferred [...] oral, Daily, Do not crush or chew. maeet-bf-0-cyd-kxd-xdmxaqp-a st (krill oil) 1,166-870-74-80 mg capsule 90 mg, oral, Daily lisinopril [...] or chew. (more content not included)... Normal [facility] LACTIC ACID, PLASMAon 2023 LACTATE (MMOL/L) IN SER/PLAS 1.9 mmol/L Normal 0.5-2.2 [facility] Comment on above: Performed By: #### L [id number] #### [facility] LAB (AKER) [address] [place] [address] MAGNESIUMon 04-13-2024 Magnesium [Mass/Vol] 2.1 mg/dL Normal 1.9-2.7 [facility] Comment on above: Performed By: #### L [id number] ####[facility] LAB (BE[facility])[address] [place] [address] Magnesium [Mass/Vol] 2.1 mg/dL Normal 1.9-2.7 [facility] Comment on above: Performed By: #### L [id number] ####[facility] LAB (AKER)[address] [place] [address] PROTIME-INRon 04-13-2024 INR IN PPP BY COAGULATION ASSAY 1.08 Normal 0.90-1.10 [facility] Comment on above: Result Comment: ACCC P [...] 1995;[id number]. Performed By: #### L [id number] #### [facility] [[email or web address]] [facility]) [address] [place] [address] PROTHROMBIN TIME (PT) IN PPP BY COAGULATION ASSAY 14.0 Seconds Normal 12.3-14.8 [facility] Comment on above: Performed By: #### L [id number] #### [facility] [[email or web address]] [facility]) [address] [place] [address] TROPONIN Ion 04-13-2024 Troponin I.cardiac [Mass/Vol] 0.42 ng/mL Critically high 0.00-0.04 [facility] Comment on above: Result Comment: M-IA EVIOUS CRITICAL RESULT Previous result verified on 04/13/2024 2050 on specimen/case [id number] called with component Troponin I for procedure Troponin I with value 0.55 ng/mL. Performed By: #### L [id number] #### [facility] [address] [place] [address] Troponin I.cardiac [Mass/Vol] 0.55 ng/mL Critically high 0.00-0.04 [facility] Comment on above: Result Comment: M-IA EVIOUS CRITICAL RESULT Previous result verified on 04/13/2024 1654 on specimen/case [id number] called with component Troponin I for procedure Troponin I x 1 with value 0.51 ng/mL. Performed By: #### L [id number] ####[facility] [place] [address] Troponin I.cardiac [Mass/Vol] 0.51 ng/mL Critically high 0.00-0.04 [facility] Comment on above: Result Comment: M-IA EVIOUS CRITICAL RESULT Previous result verified on 04/13/2024 0500 on specimen/case [id number] called with component Troponin I for procedure Troponin I x 1 with value 1.09 ng/mL. Performed By: #### L [id number] #### [facility] LAB ([facility]) [address] [place] [address] Troponin I.cardiac [Mass/Vol] 0.67 ng/mL Critically high 0.00-0.04 [facility] Comment on above: Result Comment: M-IA EVIOUS CRITICAL RESULT Previous result verified on 04/13/2024 0500 on specimen/case [id number] called with component Troponin I for procedure Troponin I x 1 with value 1.09 ng/mL. Performed By: #### L [id number] ####[facility] LAB ([facility])[address] [place] [address] Troponin I.cardiac [Mass/Vol] 1.09 ng/mL Critically high 0.00-0.04 [facility] Comment on above: Result Comment: M-IA EVIOUS CRITICAL RESULT Previous result verified on 04/13/2024 0055 on specimen/case [id number] called with component Troponin I for procedure Troponin I x 1 with value 1.17 ng/mL. Performed By: #### L [id number] ####[facility] LAB ([facility])[address] [place] [address] URINALYSIS WITH REFLEX CULTU REon 04-13-2024 BILIRUBIN, TOTAL PRESENCE IN URINE Negative Normal Negative [facility] Comment on above: Order Comment: Micro scopics not performed on urines with negative chemical reactions unless requested on original order. Performed By: #### L [id number] #### [facility] LAB ([facility]) [address] [place] [address] Clarity (U) Clear Normal Clear [facility] Comment on above: Order Comment: Micro scopics not performed on urines with negative chemical reactions unless requested on original order. Performed By: #### L [id number] #### [facility] ([facility]) [address] [place] [address] Color (U) Colorless Normal Colorless, Yellow, Light-Yello w [facility] Comment on above: Order Comment: Micro scopics not performed on urines with negative chemical reactions unless requested on original order. Performed By: #### L [id number] #### [facility] LAB ([facility]) [address] [place] [address] Glucose (U) [Mass/Vol] mg/dL Abnormal Normal [facility] Comment on above: Order Comment: Micro scopics not performed on urines with negative chemical reactions unless requested on original order. Performed By: #### L [id number] #### [facility] LAB ([facility]) [address] [place] [address] HEMOGLOBIN PRESENCE IN URINE Negative Normal Negative [facility] Comment on above: Order Comment: Micro scopics not performed on urines with negative chemical reactions unless requested on original order. Performed By: #### L [id number] #### [facility] LAB ([facility]) [address] [place] [address] Ketones Ql (U) Negative Normal Negative [facility] Comment on above: Order Comment: Micro scopics not performed on urines with negative chemical reactions unless requested on original order. Performed By: #### L [id number] #### [facility] LAB ([facility]) [address] [place] [address] LEUKOCYTE ESTERASE PRESENCE IN URINE BY TEST STRIP Negative Normal Negative [facility] Comment on above: Order Comment: Micro scopics not performed on urines with negative chemical reactions unless requested on original order. Performed By: #### L [id number] #### [facility] LAB ([facility]) [address] [place] [address] NITRITE PRESENCE IN URINE Negative Normal Negative [facility] Comment on above: Order Comment: Micro scopics not performed on urines with negative chemical reactions unless requested on original order. Performed By: #### L [id number] #### [facility] LAB ([facility]) [address] [place] [address] pH (U) 6.5 [pH] Normal 5.0-8.0 [facility] Comment on above: Order Comment: Micro scopics not performed on urines with negative chemical reactions unless requested on original order. Performed By: #### L [id number] #### [facility] ([facility]) [address] [place] [address] Protein (U) [Mass/Vol] Negative Normal Negative [facility] Comment on above: Order Comment: Micro scopics not performed on urines with negative chemical reactions unless requested on original order. Performed By: #### L [id number] #### [facility] LAB ([facility]) [address] [place] [address] Specific gravity (U) [Rel density] 1.005 Low 1.010-1.030 [facility] Comment on above: Order Comment: Micro scopics not performed on urines with negative chemical reactions unless requested on original order. Performed By: #### L [id number] #### [facility] LAB ([facility]) [address] [place] [address] UROBILINOGEN (MG/DL) IN URINE Normal Normal Normal [facility] Comment on above: Order Comment: Micro scopics not performed on urines with negative chemical reactions unless requested on original order. Performed By: #### L [id number] #### [facility] LAB ([facility]) [address] [place] [address] VENOUS BLOOD GAS WITH IONIZE D CALCIUMon 04-13-2024 Base excess Calc (BldV) [Moles/Vol] -0.6000 mmol/L Normal [facility] Comment on above: Performed By: #### L [id number] ####[facility] RESPIRATORY [id number] [place] [address] [place] CALCIUM IONIZED (MMOL/L) IN BLOOD 1.16 mmol/L Normal 1.15-1.33 [facility] Comment on above: Performed By: #### L [id number] ####[facility] RESPIRATORY [id number] [place] [address] [place] CO2 (BldV) [Partial pressure] 46 mm[Hg] Normal 40-50 [facility] Comment on above: Performed By: #### L [id number] ####[facility] RESPIRATORY [id number] [place] [address] [facility] HCO3 (Bld) [Moles/Vol] 25.4 mmol/L Normal [facility] Comment on above: Performed By: #### L [id number] ####[facility] RESPIRATORY [id number] [place] [address] [facility] Oxygen (BldV) [Partial pressure] 35 mm[Hg] Normal 35-45 [facility] Comment on above: Performed By: #### L [id number] ####[facility] RESPIRATORY [id number] [place] [address] [facility] OXYGEN SATURATION (%) IN VENOUS BLOOD 57.7 % Low 65.0-75.0 [facility] Comment on above: Performed By: #### L [id number] ####[facility] RESPIRATORY [id number] [place] [address] [facility] PH OF VENOUS BLOOD 7.35 Normal 7.31-7.41 [facility] Comment on above: Performed By: #### L [id number] ####[facility] RESPIRATORY [id number] [place] [address] [facility] 30on 04-12-2024 30 The patient is Moder ately Stable - Low risk of patient condition declining or worsening The patient's goals for the shift include Comfort/Rest The clinical goals for the shift include Stable vital signs Normal [facility] APTTon 04-12-2024 ACTIVATED PARTIAL THROMBOPLASTIN TIME IN PPP BY COAGULATION ASSAY 91.8 Seconds High 25.0-35.0 [facility] Comment on above: Order Comment: Check aPTT every 6 hours while on heparin infusion, or per protocol. Result Comment: Clin ical significance of the APTT is questionable in the presence of heparin. Performed By: #### L [id number] #### [facility] LAB (BE[facility]ER) [address] [place] [address] BASIC METABOLIC PANELon Anion gap [Moles/Vol] 14 mmol/L Normal 7-20 [facility] Comment on above: Performed By: #### L [id number] #### [facility] LAB ([facility]) [address] [place] [address] Calcium [Mass/Vol] 9.7 mg/dL Normal 8.6-10.3 [facility] Comment on above: Performed By: #### L [id number] #### [facility] LAB ([facility]) [address] [place] [address] Chloride [Moles/Vol] 102 mmol/L Normal 98-107 [facility] Comment on above: Performed By: #### L [id number] #### [facility] LAB ([facility]) [address] [place] [address] CO2 [Moles/Vol] 26 mmol/L Normal 21-31 [facility] Comment on above: Performed By: #### L [id number] #### [facility] LAB ([facility]) [address] [place] [address] Creatinine [Mass/Vol] 1.25 mg/dL Normal 0.70-1.30 [facility] Comment on above: Performed By: #### L [id number] #### [facility] LAB ([facility]) [address] [place] [address] GLOMERULAR FILTRATION RATE ML/MIN/1.73 SQ M.PREDICTED 55.7 mL/min/1.73m*2 Low >60.0 [facility] Comment on above: Result Comment: [facility]???s estimated glomerular filtration rate (eGFR) will no [...] group of individuals. Performed By: #### L [id number] #### [facility] LAB (BE[facility]ER) [address] [place] [address] Glucose [Mass/Vol] 93 mg/dL Normal 70-100 [facility] Comment on above: Performed By: #### L [id number] #### [facility] LAB ([facility]) [address] [place] [address] Potassium [Moles/Vol] 3.8 mmol/L Normal 3.5-5.1 [facility] Comment on above: Performed By: #### L [id number] #### [facility] LAB ([facility]) [address] [place] [address] Sodium [Moles/Vol] 138 mmol/L Normal 136-145 [facility] Comment on above: Performed By: #### L [id number] #### [facility] LAB ([facility]) [address] [place] [address] Urea nitrogen [Mass/Vol] 19 mg/dL Normal 7-25 [facility] Comment on above: Performed By: #### L [id number] #### [facility] LAB ([facility]) [address] [place] [address] UREA NITROGEN/CREATININ E (MASS RATIO) IN SER/PLAS 15.2 Normal [facility] Comment on above: Performed By: #### L [id number] #### [facility] LAB ([facility]) [address] [place] [address] Basophils Auto (Bld) [#/Vol] on 04-12-2024 Basophils (Bld) [#/Vol] Automated basophil count 0.0-0.1 [facility] Basophils/100 WBC Auto (Bld) on 04-12-2024 Basophils/100 WBC (Bld) Automated basophil % 0.2-2.0 [facility] CBC WITH AUTO DIFFERENTIALon 04-12-2024 Basophils (Bld) [#/Vol] 0.02 10*3/uL Normal 0.00-0.20 [facility] Comment on above: Performed By: #### L [id number] #### [facility] LAB (BE[facility]ER) [address] [place] [address] Basophils/100 WBC (Bld) 0.4 % Normal 0.0-1.0 [facility] Comment on above: Performed By: #### L [id number] #### [facility] LAB (BE[facility]ER) [address] [place] [address] Eosinophils (Bld) [#/Vol] 0.12 10*3/uL Normal 0.00-0.50 [facility] Comment on above: Performed By: #### L [id number] #### [facility] LAB (AKER) [address] [place] [address] Eosinophils/100 WBC (Bld) 2.2 % Normal 0.0-6.0 [facility] Comment on above: Performed By: #### L [id number] #### [facility] LAB ([facility]) [address] [place] [address] Erythrocyte distribution width (RBC) [Ratio] 12.4 % Normal 11.5-15.0 [facility] Comment on above: Performed By: #### L [id number] #### [facility] LAB ([facility]) [address] [place] [address] ERYTHROCYTE MEAN CORPUSCULAR HEMOGLOBIN CONCENTRATION (G/DL) BY AUTOMATED 34.7 g/dL Normal 32.0-35.0 [facility] Comment on above: Performed By: #### L [id number] #### [facility] LAB ([facility]) [address] [place] [address] Hematocrit (Bld) [Volume fraction] 48.7 % Normal 39.0-55.0 [facility] Comment on above: Performed By: #### L [id number] #### [facility] LAB ([facility]) [address] [place] [address] Hemoglobin (Bld) [Mass/Vol] 16.9 g/dL Normal 13.0-17.0 [facility] Comment on above: Performed By: #### L [id number] #### [facility] LAB (BE[facility]ER) [address] [place] [address] Immature granulocytes (Bld) [#/Vol] 0.01 10*3/uL Normal 0.00-0.20 [facility] Comment on above: Performed By: #### L [id number] #### [facility] LAB (BEAKER) [address] [place] [address] Immature granulocytes/100 WBC (Bld) 0.2 % Normal 0.0-1.0 [facility] Comment on above: Performed By: #### L [id number] #### [facility] LAB ([facility]) [address] [facility] [place] [address] Lymphocytes (Bld) [#/Vol] 1.23 10*3/uL Normal 1.20-4.00 [facility] Comment on above: Performed By: #### L [id number] #### [facility] LAB ([facility]) [address] [facility] [place] [address] Lymphocytes/100 WBC (Bld) 22.1 % Normal 20.0-45.0 [facility] Comment on above: Performed By: #### L [id number] #### [facility] LAB ([facility]) [address] [facility] [place] [address] MCH (RBC) [Entitic mass] 35.2 pg High 27.0-33.0 [facility] Comment on above: Performed By: #### L [id number] #### [facility] LAB (BE[facility]ER) [address] [facility] [place] [address] MCV (RBC) [Entitic vol] 101.5 fL High 82.0-98.0 [facility] Comment on above: Performed By: #### L [id number] #### [facility] LAB (BEAKER) [address] [place] [address] Monocytes (Bld) [#/Vol] 0.61 10*3/uL Normal 0.10-1.00 [facility] Comment on above: Performed By: #### L [id number] #### [facility] LAB (BEAKER) [address] [place] [address] Monocytes/100 WBC (Bld) 11.0 % Normal 5.0-12.0 [facility] Comment on above: Performed By: #### L [id number] #### [facility] LAB ([facility]) [address] [place] [address] Neutrophils (Bld) [#/Vol] 3.57 10*3/uL Normal 1.60-7.60 [facility] Comment on above: Performed By: #### L [id number] #### [facility] LAB ([facility]) [address] [place] [address] Neutrophils/100 WBC (Bld) 64.1 % Normal 40.0-72.0 [facility] Comment on above: Performed By: #### L [id number] #### [facility] LAB ([facility]) [address] [place] [address] NRBC (PER 100 WBCS) BY AUTOMATED COUNT 0.0 % Normal 0 [facility] Comment on above: Performed By: #### L [id number] #### [facility] LAB ([facility]) [address] [place] [address] PLATELETS (10*3/UL) IN BLOOD AUTOMATED COUNT 177 10*3/uL Normal 150-400 [facility] Comment on above: Performed By: #### L [id number] #### [facility] LAB ([facility]) [address] [place] [address] RBC (Bld) [#/Vol] 4.80 10*6/uL Normal 4.20-5.70 [facility] Comment on above: Performed By: #### L [id number] #### [facility] LAB ([facility]) [address] [place] [address] WBC (Bld) [#/Vol] 5.56 10*3/uL Normal 4.00-10.60 [facility] Comment on above: Performed By: #### L [id number] #### [facility] LAB (BEAKER) [address] [place] [address] Eosinophils/100 WBC Auto (Bl d)on 04-12-2024 Eosinophils/100 WBC (Bld) Automated eosinophil % 0.9-7.0 [facility] Erythrocyte distribution wid th Auto (RBC) [Ratio]on 04-12-2024 Erythrocyte distribution width (RBC) [Ratio] Erythrocyte distribution width [Ratio] by Automated count 11.0-15.0 [facility] Estimated glomerular filtrat ion rate (GFR) non- Americanon 04-12-2024 GFR/1.73 sq M.predicted among non-blacks MDRD (S/P/Bld) [Vol rate/Area] Estimated glomerular filtration rate (GFR) non- Low >=60 mL/min/1.73 m 2 [facility] Hematocrit Auto (Bld) [Volum e fraction]on 04-12-2024 Hematocrit (Bld) [Volume fraction] Hematocrit [Volume Fraction] of Blood by Automated count 42.0-54.0 [facility] Hemoglobin [Mass/volume] in Bloodon 04-12-2024 Hemoglobin (Bld) [Mass/Vol] Hemoglobin [Mass/volume] in Blood 14.0-18.0 [facility] Laboratory - Chemistry and C hemistry - challengeon 04-12-2024 Calcium [Mass/Vol] 9.5 mg/dL 8.5-10.1 [facility] Chloride [Moles/Vol] 105 mmol/L 98-107 [facility] CO2 [Moles/Vol] 25.7 mmol/L 21.0-32.0 [facility] Creatinine [Mass/Vol] 1.60 mg/dL High 0.70-1.30 [facility] GFR/1.73 sq M.predicted MDRD (S/P/Bld) [Vol rate/Area] 50 mL/min/{1.73_m2} Low >=60 mL/min/1.73 m 2 [facility] Glucose [Mass/Vol] 117 mg/dL High 74-106 [facility] Potassium [Moles/Vol] 4.4 mmol/L 3.5-5.1 [facility] Sodium [Moles/Vol] 142 mmol/L 136-145 [facility] Urea nitrogen [Mass/Vol] 20.0 mg/dL High 7.0-18.0 [facility] Urea nitrogen/Creatinin e [Mass ratio] 12.5 mg/mg [facility] - Hematology and Cell countson 04-12-2024 Immature granulocytes/100 WBC (Bld) 0.2 % 0.0-0.5 [facility] Leukocytes [#/volume] correc analia for nucleated erythrocytes in Blood by Automated counon 04-12-2024 WBC corrected for nucl RBC Auto (Bld) [#/Vol] Leukocytes [#/volume] corrected for nucleated erythrocytes in Blood by Automated coun 4.0-11.0 [facility] Lymphocytes Auto (Bld) [#/Vo l]on 04-12-2024 Lymphocytes (Bld) [#/Vol] Lymphocytes [#/volume] in Blood by Automated count 1.2-3.8 [facility] Lymphocytes/100 WBC Auto (Bl d)on 04-12-2024 Lymphocytes/100 WBC (Bld) Lymphocytes/100 leukocytes in Blood by Automated count 20.5-60.0 [facility] MAGNESIUMon 04-12-2024 Magnesium [Mass/Vol] 2.2 mg/dL Normal 1.9-2.7 [facility] Comment on above: Performed By: #### L [id number] #### [facility] (BEAKER) [address] [place] [address] MCH Auto (RBC) [Entitic mass ]on 04-12-2024 MCH (RBC) [Entitic mass] MCH [Entitic mass] by Automated count High 25.9-34.0 [facility] MCHC Auto (RBC) [Mass/Vol]on 04-12-2024 MCHC (RBC) [Mass/Vol] MCHC [Mass/volume] by Automated count 29.9-35.2 [facility] MCV Auto (RBC) [Entitic vol] on 04-12-2024 MCV (RBC) [Entitic vol] MCV [Entitic volume] by Automated count High 80.0-94.0 [facility] Monocytes Auto (Bld) [#/Vol] on 04-12-2024 Monocytes (Bld) [#/Vol] Automated blood monocyte count 0.3-0.8 [facility] Monocytes/100 WBC Auto (Bld) on 04-12-2024 Monocytes/100 WBC (Bld) Automated monocyte % High 1.7-12.0 [facility] Neutrophils Auto (Bld) [#/Vo l]on 04-12-2024 Neutrophils (Bld) [#/Vol] Neutrophils [#/volume] in Blood by Automated count 1.4-6.5 [facility] Neutrophils/100 WBC Auto (Bl d)on 04-12-2024 Neutrophils/100 WBC (Bld) Automated neutrophil % 43.0-75.0 [facility] No Panel Informationon 04-12 Troponin I High Sensitivity 152.5 pg/mL Critically high 4.0-76.1 [facility] Comment on above: RESULTS CALLED TO DR [...] Eosinophils # (Auto) 0.2 10 3/uL 0.0-0.7 [facility] Immature Granulocyte # (Auto) 0.01 10 3/uL 0.00-0.03 [facility] Platelet mean volume Auto (B ld) [Entitic vol]on 04-12-2024 Platelet mean volume (Bld) [Entitic vol] Platelet mean volume [Entitic volume] in Blood by Automated count Low 9.5-13.5 [facility] Platelets Auto (Bld) [#/Vol] on 04-12-2024 Platelets (Bld) [#/Vol] Platelets [#/volume] in Blood by Automated count 150-450 [facility] RBC Auto (Bld) [#/Vol]on RBC (Bld) [#/Vol] Erythrocytes [#/volu me] in Blood by Automated count Low 4.70-6.10 [facility] Serum or plasma anion gap de terminationon 04-12-2024 Anion gap [Moles/Vol] Serum or plasma anion gap determination [facility] TROPONIN Ion 04-12-2024 Troponin I.cardiac [Mass/Vol] 1.17 ng/mL Critically high 0.00-0.04 [facility] Comment on above: Result Comment: M-IA EVIOUS CRITICAL RESULT Previous result verified on 04/12/2024 1741 on specimen/case [id number] called with component Troponin I for procedure Troponin I with value 1.00 ng/mL. Performed By: #### L [id number] #### [facility] (BEAKER) [address] [place] [address] Troponin I.cardiac [Mass/Vol] 1.00 ng/mL Critically high 0.00-0.04 [facility] Comment on above: Result Comment: M-TR OPONIN INITIAL CRITICAL HIGH; RESPUN AND RETESTED Performed By: #### L [id number] ####[facility] (BEAKER)[address] [place] [address] ANEAlon 04-01-2024 ANES -------- Attestation signed by [...] removal - PC APPROVED Loop insertion Location: [facility]PER[facility] HOLDING ROOM / [facility] (Cath) Providers: Camacho Mohamud MD [...] attending and fellow. Additional Equipment Requests Normal [facility] HPon 04-01-2024 [facility] Cardiology Consul t Note Reason for visit: [...] Date ATRIAL ABLA (more content not included)... [facility] NURSNOTEon 04-01-2024 NURSNOTE RN educated pt on [...] off of unit with all of belongings. [facility] Orders Onlyon 03-23-2024 Orders Only [id number] Annelise Olson 1935 M Date Provider Department Center 03/23/2024 BEAU PORTILLO CARD [facility] Family History Problem Relation Age of Onset Coronary artery disease Mother Coronary artery disease Father Family Status - Relation Status Age at Mother Father [facility] 37on 03-12-2024 37 Spoke with patient latrice nd his . They are in [facility] for a few days. She will call us back later and let us know which pharmacy to call Xarelto 20mg in for. I told her we could call that pharmacy with a free 30 day voucher card so it wouldn't cost them anything out of pocket. She verbalized understanding and will call us back soon. Normal [facility] 37 I attempted to call patient but he did not answer. Please let patient know that I spoke with Dr. Mohamud. Would like for him to take a blood thinner for 4 weeks since he had a flutter ablation. Can do Eliquis 5mg BID or Xarelto 20mg with dinner. Please also schedule him for a loop recorder interrogation so we can determine if the batter is at EOL. If it is, would like to replace. Thanks! Francisca [facility] Orders Onlyon 03-12-2024 Orders Only [id number] KerajasAnnelise Mercer 1935 [facility] Provider Department Center 03/12/2024 BEAU PORTILLO [facility] Family History Problem Relation Age of Onset Coronary artery disease Mother Coronary artery disease Father Family Status - Relation Status Age at Mother Father [facility] Telephoneon 03-12-2024 Telephone [id number] Annelise Olson Ruslan 1935 [facility] Provider Department [place] 03/12/2024 RIVKA KNOWLES [facility] Family History Problem Relation Age of Onset Coronary artery disease Mother Coronary artery disease Father Family Status - Relation Status Age at Mother Father [facility] Follow-Upon 03-10-2024 Follow-Up [id number] KerajasAnnelise Mercer 1935 [facility] Provider Department [place] 03/10/2024 RIVKA KNOWLES [facility] Family History Problem Relation Age of Onset Coronary artery disease Mother Coronary artery disease Father Family Status - Relation Status Age at Mother Father Level of Service:26141 [place] OFFICE/OUTPATIENT ESTABLISHED MOD MDM 30 MIN Reason for Visit and Comments: Atrial Flutter [101] [facility] HPon 03-10-2024 Cardiovascular Medic [facility] SUBJECTIVE Chief Complaint Patient presents with Atrial [...] of duodenal ulcer Increased frequency of urination USP current use of anticoagulant therapy Osteoarthritis of [...] or chew., Disp: 30 tablet, Rfl: 0 [id number] st (krill oil) [id number] mg capsule, Take 90 mg by mouth [...] General: Nor (more content not included)... Normal [facility] HPon 02-26-2024 [facility] Cardiology Consul t Note Reason for visit: [...] SURGERY 02 (more content not included)... Normal [facility] NURSNOTEon 02-26-2024 NURSNOTE RN educated pt on [...] of unit with all of belongings. Normal [facility] Laboratory - Chemistry and C hemistry - challengeon 02-21-2024 Cobalamin (Vitamin B12) [Mass/Vol] 293 pg/mL 232-1242 [facility] Comment on above: Performed at: [address] [id number] Director: Peewee Villalobos PhD, Phone: [phone] Free T4 [Mass/Vol] 0.83 ng/dL 0.76-1.46 [facility] TSH Qn 4.326 m[IU]/L High 0.358-3.740 [facility] No Panel Informationon 02-20 Folate 13.00 ng/mL 8.60-58.90 [facility] Serum or plasma methylmalona te measurement (moles/volume)on 02-21-2024 Methylmalonate [Moles/Vol] Serum or plasma methylmalonate measurement (moles/volume) 0-378 [facility] Comment on above: This test was develo ped and its performance characteristicsdetermined by [facility]. It has not been cleared orapproved by the Food and Drug Administration.Performed at: [facility] [id number] Director: Nury Christianson MD, Phone: [phone] Basophils Auto (Bld) [#/Vol] on 02-07-2024 Basophils (Bld) [#/Vol] 0.0 10 3/uL 0.0-0.1 [facility] Basophils/100 WBC Auto (Bld) on 02-07-2024 Basophils/100 WBC (Bld) 0.4 % 0.2-2.0 [facility] Eosinophils/100 WBC Auto (Bl d)on 02-07-2024 Eosinophils/100 WBC (Bld) 4.1 % 0.9-7.0 [facility] Erythrocyte distribution wid th Auto (RBC) [Ratio]on 02-07-2024 Erythrocyte distribution width (RBC) [Ratio] 12.2 % 11.0-15.0 [facility] Estimated glomerular filtrat ion rate (GFR) non- Americanon 02-07-2024 GFR/1.73 sq M.predicted among non-blacks MDRD (S/P/Bld) [Vol rate/Area] mL/min/{1.73_m2} >=60 mL/min/1.73 m 2 [facility] Hematocrit Auto (Bld) [Volum e fraction]on 02-07-2024 Hematocrit (Bld) [Volume fraction] 44.4 % 42.0-54.0 [facility] Hemoglobin [Mass/volume] in Bloodon 02-07-2024 Hemoglobin (Bld) [Mass/Vol] 14.9 g/dL 14.0-18.0 [facility] Laboratory - Chemistry and C hemistry - challengeon 02-07-2024 Calcium [Mass/Vol] 8.8 mg/dL 8.5-10.1 [facility] Chloride [Moles/Vol] 105 mmol/L 98-107 [facility] CO2 [Moles/Vol] 26.9 mmol/L 21.0-32.0 [facility] Creatinine [Mass/Vol] 1.11 mg/dL 0.70-1.30 [facility] GFR/1.73 sq M.predicted MDRD (S/P/Bld) [Vol rate/Area] mL/min/{1.73_m2} >=60 mL/min/1.73 m 2 [facility] Glucose [Mass/Vol] 96 mg/dL 74-106 [facility] Potassium [Moles/Vol] 4.2 mmol/L 3.5-5.1 [facility] Sodium [Moles/Vol] 137 mmol/L 136-145 [facility] Urea nitrogen [Mass/Vol] 11.0 mg/dL 7.0-18.0 [facility] Urea nitrogen/Creatinin e [Mass ratio] 9.9 mg/mg [facility] Laboratory - Hematology and Cell countson 02-07-2024 Immature granulocytes/100 WBC (Bld) 0.3 % 0.0-0.5 [facility] Leukocytes [#/volume] correc analia for nucleated erythrocytes in Blood by Automated counon 02-07-2024 WBC corrected for nucl RBC Auto (Bld) [#/Vol] 7.2 10 3/uL 4.0-11.0 [facility] Lymphocytes Auto (Bld) [#/Vo l]on 02-07-2024 Lymphocytes (Bld) [#/Vol] 1.4 10 3/uL 1.2-3.8 [facility] Lymphocytes/100 WBC Auto (Bl d)on 02-07-2024 Lymphocytes/100 WBC (Bld) 19.3 % Low 20.5-60.0 [facility] MCH Auto (RBC) [Entitic mass ]on 02-07-2024 MCH (RBC) [Entitic mass] 34.9 pg High 25.9-34.0 [facility] MCHC Auto (RBC) [Mass/Vol]on 02-07-2024 MCHC (RBC) [Mass/Vol] 33.6 g/dL 29.9-35.2 [facility] MCV Auto (RBC) [Entitic vol] on 02-07-2024 MCV (RBC) [Entitic vol] 104.0 fL High 80.0-94.0 [facility] Monocytes Auto (Bld) [#/Vol] on 02-07-2024 Monocytes (Bld) [#/Vol] 0.8 10 3/uL 0.3-0.8 [facility] Monocytes/100 WBC Auto (Bld) on 02-07-2024 Monocytes/100 WBC (Bld) 10.6 % 1.7-12.0 [facility] Neutrophils Auto (Bld) [#/Vo l]on 02-07-2024 Neutrophils (Bld) [#/Vol] 4.7 10 3/uL 1.4-6.5 [facility] Neutrophils/100 WBC Auto (Bl d)on 02-07-2024 Neutrophils/100 WBC (Bld) 65.3 % 43.0-75.0 [facility] No Panel Informationon 02-06 Eosinophils # (Auto) 0.3 10 3/uL 0.0-0.7 [facility] Immature Granulocyte # (Auto) 0.02 10 3/uL 0.00-0.03 [facility] Platelet mean volume Auto (B ld) [Entitic vol]on 02-07-2024 Platelet mean volume (Bld) [Entitic vol] 8.8 fL Low 9.5-13.5 [facility] Platelets Auto (Bld) [#/Vol] on 02-07-2024 Platelets (Bld) [#/Vol] 146 10 3/uL Low 150-450 [facility] RBC Auto (Bld) [#/Vol]on RBC (Bld) [#/Vol] 4.27 10 6/uL Low 4.70-6.10 [facility] Serum or plasma anion gap de terminationon 02-07-2024 Anion gap [Moles/Vol] 9.3 mmol/L [facility] Orders Onlyon 02-05-2024 Orders Only [id number] Annelise Olson 1935 [facility] Provider Department Center 02/05/2024 LIBAN MOSQUEDA [facility] AR HeartVAS Family History Problem Relation Age of Onset Coronary artery disease Mother Coronary artery disease Father Family Status - Relation Status Age at Mother Father Normal [facility] No Panel Informationon 01-22 Avis Lacy, ARR T 01/23/2024 11:44 AM L Inj/Asp: R knee on 01/23/2024 11:16 AM Indications: pain Details: 22 G needle, lateral approach Medications: 30 mg cross-linked hyaluronate 30 MG/3ML Consent was given by the patient. [facility] XR Knee - right 3 [facility] Result: Multiple weightbearing views (AP, Lateral and sunrise) are reviewed for the permanent PACS record. 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 No fracture, dislocation, tumor or infection seen. Images are reviewed with the patient at length. [facility] Radiology Study observation (narrative) [facility] Office Visiton 01-14-2024 Follow-up visit [id number] Annelise Olson 1935 [facility] Provider Department [place] 01/14/2024 CAMACHO CARTWRIGHT ALBERT [facility] Family History Problem Relation Age of Onset Coronary artery disease Mother Coronary artery disease Father Family Status - Relation Status Age at Mother Father Level of Service:97138 [place] OFFICE/OUTPATIENT ESTABLISHED LOW MDM 20 MIN Normal [facility] Office Visiton 12-04-2023 Follow-up visit [id number] Annelise Olson 1935 [facility] Provider Department Center 12/04/2023 ALEX VALENCIA ALBERT [facility] Family History Problem Relation Age of Onset Coronary artery disease Mother Coronary artery disease Father Family Status - Relation Status Age at Mother Father Level of Service:28284 [place] OFFICE/OUTPATIENT ESTABLISHED MOD MDM 30 MIN Normal [facility] No Panel Informationon 09-01 Folate 11.40 ng/mL 8.60-58.90 [facility] Screenson 08-22-2023 Screens [id number]#[id number] Normal [facility] Screens [id number]#1.00TIFF Normal [facility] Patient Educationon 08-21-19 Patient Education Urology [...] stimulation). ? For women, using a medical claims manager to prevent urine leaks. This is [...] urine. ? (more content not included)... Normal [facility] Urology Office/Clinic Noteon 08-21-2023 Urology Office/Clinic [...] E&M of Est. Patient Low 20-29 Min 56157 2. Urge incontinence (N39.41: Urge incontinence) UA completed in office today shows no microhematuria or signs of infection. PRW prescribed myrbetriq last year. pt filled 1 mo but it didn't help and was very costly. pt not interested in trying any other meds for these sx. Ordered: Complex E&M Add on G2211 E&M of Est. Patient Low 20-29 Min 40241 3. 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 reports steady stream. no complaints at this time. Ordered: Complex E&M Add on G2211 E&M of Est. Patient Low 20-29 Min 11945 pt pleased w urinary status at this time. Offered continued scheduled follow up with our clinic vs following up PRN. Pt prefers the latter. Follow-up With When Contact Information AZRA SPEARS, HEATHER Dixon, KAUSHIK Only if needed [address] [place] [address] [facility] (1) Additional Instructions: Conner SÁNCHEZ MD, KAUSHIK [facility] [address], [place] [address]- [phone] Additional Instructions: Patient Education Urinary Incontinence Problem [...] SARS-CoV-2 (COVID-19) Ad26 vaccine 05/12/2020 Recorded Normal [facility] Comment on above: Result Comment: Elec tronically Signed By: AZRA SPEARS, HEATHER Dixon\.br\Date and Time Signed: 08/21/23 13:10 EDT Office Visiton 07-12-2023 Follow-up visit [id number] Annelise Olson 1935 M Date Provider Department Center 07/12/2023 Drew-AVIS GREY AL[facility] Family History Problem Relation Age of Onset Coronary artery disease Mother Coronary artery disease Father Family Status - Relation Status Age at Mother Father Level of Service:60187 [place] OFFICE/OUTPATIENT ESTABLISHED MOD MDM 30 MIN Reason for Visit and Comments: Follow-up [581382] - Patient here for hospital follow up Normal [facility] Basophils Auto (Bld) [#/Vol] on 07-10-2023 Basophils (Bld) [#/Vol] 0.0 10 3/uL 0.0-0.1 [facility] Basophils/100 WBC Auto (Bld) on 07-10-2023 Basophils/100 WBC (Bld) 0.5 % 0.2-2.0 [facility] Eosinophils/100 WBC Auto (Bl d)on 07-10-2023 Eosinophils/100 WBC (Bld) 3.8 % 0.9-7.0 [facility] Erythrocyte distribution wid th Auto (RBC) [Ratio]on 07-10-2023 Erythrocyte distribution width (RBC) [Ratio] 12.5 % 11.0-15.0 [facility] Estimated glomerular filtrat ion rate (GFR) non- Americanon 07-10-2023 GFR/1.73 sq M.predicted among non-blacks MDRD (S/P/Bld) [Vol rate/Area] 52 mL/min/{1.73_m2} >=60 [facility] Globulin Calc (S) [Mass/Vol] on 07-10-2023 Globulin (S) [Mass/Vol] 3.9 g/dL [facility] Hematocrit Auto (Bld) [Volum e fraction]on 07-10-2023 Hematocrit (Bld) [Volume fraction] 45.9 % 42.0-54.0 [facility] Hemoglobin [Mass/volume] in Bloodon 07-10-2023 Hemoglobin (Bld) [Mass/Vol] 15.3 g/dL 14.0-18.0 [facility] Laboratory - Chemistry and C hemistry - challengeon 07-10-2023 Albumin [Mass/Vol] 3.4 g/dL 3.4-5.0 [facility] ALP [Catalytic activity/Vol] 91 U/L 46-116 [facility] ALT [Catalytic activity/Vol] 15 U/L 16-63 [facility] AST [Catalytic activity/Vol] 25 U/L 15-37 [facility] Bilirubin [Mass/Vol] 1.1 mg/dL 0.2-1.0 [facility] Calcium [Mass/Vol] 8.8 mg/dL 8.5-10.1 [facility] Chloride [Moles/Vol] 104 mmol/L 98-107 [facility] CO2 [Moles/Vol] 25.5 mmol/L 21.0-32.0 [facility] Creatinine [Mass/Vol] 1.31 mg/dL 0.70-1.30 [facility] GFR/1.73 sq M.predicted MDRD (S/P/Bld) [Vol rate/Area] mL/min/{1.73_m2} >=60 [facility] Glucose [Mass/Vol] 164 mg/dL 74-106 [facility] Natriuretic peptide B (Bld) [Mass/Vol] 436.0 pg/mL <=1800.0 [facility] Potassium [Moles/Vol] 3.8 mmol/L 3.5-5.1 [facility] Protein [Mass/Vol] 7.3 g/dL 6.4-8.2 [facility] Sodium [Moles/Vol] 138 mmol/L 136-145 [facility] Urea nitrogen [Mass/Vol] 18.0 mg/dL 7.0-18.0 [facility] Urea nitrogen/Creatinin e [Mass ratio] 13.7 mg/mg [facility] Laboratory - Hematology and Cell countson 07-10-2023 Immature granulocytes/100 WBC (Bld) 0.3 % 0.0-0.5 [facility] Leukocytes [#/volume] correc analia for nucleated erythrocytes in Blood by Automated counon 07-10-2023 WBC corrected for nucl RBC Auto (Bld) [#/Vol] 6.3 10 3/uL 4.0-11.0 [facility] Lymphocytes Auto (Bld) [#/Vo l]on 07-10-2023 Lymphocytes (Bld) [#/Vol] 1.4 10 3/uL 1.2-3.8 [facility] Lymphocytes/100 WBC Auto (Bl d)on 07-10-2023 Lymphocytes/100 WBC (Bld) 22.1 % 20.5-60.0 [facility] MCH Auto (RBC) [Entitic mass ]on 07-10-2023 MCH (RBC) [Entitic mass] 34.5 pg 25.9-34.0 [facility] MCHC Auto (RBC) [Mass/Vol]on 07-10-2023 MCHC (RBC) [Mass/Vol] 33.3 g/dL 29.9-35.2 [facility] MCV Auto (RBC) [Entitic vol] on 07-10-2023 MCV (RBC) [Entitic vol] 103.6 fL 80.0-94.0 [facility] Monocytes Auto (Bld) [#/Vol] on 07-10-2023 Monocytes (Bld) [#/Vol] 0.5 10 3/uL 0.3-0.8 [facility] Monocytes/100 WBC Auto (Bld) on 07-10-2023 Monocytes/100 WBC (Bld) 8.1 % 1.7-12.0 [facility] Neutrophils Auto (Bld) [#/Vo l]on 07-10-2023 Neutrophils (Bld) [#/Vol] 4.1 10 3/uL 1.4-6.5 [facility] Neutrophils/100 WBC Auto (Bl d)on 07-10-2023 Neutrophils/100 WBC (Bld) 65.2 % 43.0-75.0 [facility] No Panel Informationon 07-09 Troponin I High Sensitivity 36.4 pg/mL 4.0-76.1 [facility] Comment on above: CUT-OFF POINTS HAVE BEEN [...] Eosinophils # (Auto) 0.2 10 3/uL 0.0-0.7 [facility] Immature Granulocyte # (Auto) 0.02 10 3/uL 0.00-0.03 [facility] Platelet mean volume Auto (B ld) [Entitic vol]on 07-10-2023 Platelet mean volume (Bld) [Entitic vol] 9.8 fL 9.5-13.5 [facility] Platelets Auto (Bld) [#/Vol] on 07-10-2023 Platelets (Bld) [#/Vol] 157 10 3/uL 150-450 [facility] RBC Auto (Bld) [#/Vol]on RBC (Bld) [#/Vol] 4.43 10 6/uL 4.70-6.10 [facility] Serum or plasma albumin/glob ulin mass ratioon 07-10-2023 Albumin/Globulin [Mass ratio] 0.9 {ratio} [facility] Serum or plasma anion gap de terminationon 07-10-2023 Anion gap [Moles/Vol] 12.3 mmol/L [facility] CBC AUTO DIFFon 08-14-2022 BASO # 0.0 103/ul Normal 0.0-0.1 [facility] Comment on above: Performed By: #### A LT, LIPID, BMP #### [facility] [address] [place] [address] Dr. Kaleb Desir Basophils/100 WBC (Bld) 0.5 % Normal 0.2-2.0 [facility] Comment on above: Performed By: #### A LT, LIPID, BMP #### [facility] [address] [place] [address] Dr. Kaleb Desir EO # 0.1 103/ul Normal 0.0-0.7 [facility] Comment on above: Performed By: #### A LT, LIPID, BMP #### [facility] [address] [place] [address] Dr. Kaleb Desir Eosinophils/100 WBC (Bld) 1.2 % Normal 0.9-7.0 [facility] Comment on above: Performed By: #### A LT, LIPID, BMP #### [facility] [address] [place] [address] Dr. Kaleb Desir Erythrocyte distribution width (RBC) [Ratio] 12.9 % Normal 11.0-15.0 [facility] Comment on above: Performed By: #### A LT, LIPID, BMP #### [facility] [address] [place] [address] Dr. Kaleb Desir Hematocrit (Bld) [Volume fraction] 38.6 % Critically low 42.0-54.0 [facility] Comment on above: Performed By: #### A LT, LIPID, BMP #### [facility] [address] [place] [address] Dr. Kaleb Desir Hemoglobin (Bld) [Mass/Vol] 13.1 g/dL Critically low 14.0-18.0 [facility] Comment on above: Performed By: #### A LT, LIPID, BMP #### [facility] [address] [place] [address] Dr. Kaleb Desir IG # 0.03 10e3/ul Normal 0.00-0.03 [facility] Comment on above: Performed By: #### A LT, LIPID, BMP #### [facility] [address] [place] [address] Dr. Kaleb Desir IG % 0.3 % Normal 0.0-0.5 [facility] Comment on above: Performed By: #### A LT, LIPID, BMP #### [facility] [address] [place] [address] Dr. Kaleb Desir LYMPH # 0.9 103/ul Critically low 1.2-3.8 [facility] Comment on above: Performed By: #### A LT, LIPID, BMP #### [facility] [address] [place] [address] Dr. Kaleb Desir Lymphocytes/100 WBC (Bld) 10.3 % Critically low 20.5-60.0 [facility] Comment on above: Performed By: #### A LT, LIPID, BMP #### [facility] [address] [place] [address] Dr. Kaleb Desir MANUAL DIFF REQ NO Normal [facility] Comment on above: Performed By: #### A LT, LIPID, BMP #### [facility] [address] [place] [address] Dr. Kaleb Desir MCH (RBC) [Entitic mass] 34.0 pg Normal 25.9-34.0 [facility] Comment on above: Performed By: #### A LT, LIPID, BMP #### [facility] [address] [place] [address] Dr. Kaleb Desir MCHC (RBC) [Mass/Vol] 33.9 g/dL Normal 29.9-35.2 [facility] Comment on above: Performed By: #### A LT, LIPID, BMP #### [facility] [address] [address] [address] Kaleb Desir MCV (RBC) [Entitic vol] 100.3 fL Critically high 80.0-94.0 [facility] Comment on above: Performed By: #### A LT, LIPID, BMP #### [facility] [address] [place] [address] Dr. Kaleb Desir MONO # 0.8 103/ul Normal 0.3-0.8 [facility] Comment on above: Performed By: #### A LT, LIPID, BMP #### [facility] [address] [place] [address] Dr. Kaelb Desir Monocytes/100 WBC (Bld) 9.2 % Normal 1.7-12.0 [facility] Comment on above: Performed By: #### A LT, LIPID, BMP #### [facility] [address] [place] [address] Dr. Kaleb Desir NEUT # 7.0 103/ul Critically high 1.4-6.5 [facility] Comment on above: Performed By: #### A LT, LIPID, BMP #### [facility] [address] [place] [address] Dr. Kaleb Desir Neutrophils/100 WBC (Bld) 78.5 % Critically high 43.0-75.0 [facility] Comment on above: Performed By: #### A LT, LIPID, BMP #### [facility] [address] [place] [address] Dr. Kaleb Desir Platelet mean volume (Bld) [Entitic vol] 9.0 fL Critically low 9.5-13.5 [facility] Comment on above: Performed By: #### A LT, LIPID, BMP #### [facility] [address] [place] [address] Dr. Kaleb Desir PLT 164 103/ul Normal 150-450 [facility] Comment on above: Performed By: #### A LT, LIPID, BMP #### [facility] Laboratory [address] [place] [address] Dr. Kaleb Desir RBC 3.85 106/ul Critically low 4.70-6.10 [facility] Comment on above: Performed By: #### A LT, LIPID, BMP #### [facility] [address], [place] [address] Dr. Kaleb Desir WBC 8.9 103/ul Normal 4.0-11.0 [facility] Comment on above: Performed By: #### A LT, LIPID, BMP #### [facility] [address], [place] [address] ABD/PELVIS WO CONon [...] Colt CALABRESE Date: 2022-08-14 03:24 Normal [facility] URINE PROFILEon 3 Bilirubin Ql (U) Negative Normal NEGATIVE [facility] Comment on above: Performed By: #### A LT, LIPID, BMP #### [facility] [address] [address] [address] Kaleb Desir Clarity (U) CLEAR Normal CLEAR [facility] Comment on above: Performed By: #### A LT, LIPID, BMP #### [facility] [address] [address] [address] Kaleb Desir Color (U) YELLOW Normal YELLOW [facility] Comment on above: Performed By: #### A LT, LIPID, BMP #### [facility] [address] [place] [address] Dr. Kaleb Desir ERUAHD A micrscopic examina tion will be performed if indicated. Normal [facility] Comment on above: Performed By: #### A LT, LIPID, BMP #### [facility] [address] [place] [address] Dr. Kaleb Desir Glucose Ql (U) Negative Normal NEGATIVE [facility] Comment on above: Performed By: #### A LT, LIPID, BMP #### [facility] [address] [place] [address] Dr. Kaleb Desir Hemoglobin Ql (U) TRACE-INTACT Abnormal NEGATIVE [facility] Comment on above: Performed By: #### A LT, LIPID, BMP #### [facility] [address] [place] [address] Dr. Kaleb Desir Ketones Ql (U) TRACE Abnormal NEGATIVE [facility] Comment on above: Performed By: #### A LT, LIPID, BMP #### [facility] [address] [place] [address] Dr. Kaleb Desir LEUKOCYTES Negative Normal NEGATIVE [facility] Comment on above: Performed By: #### A LT, LIPID, BMP #### [facility] [address] [place] [address] Dr. Kaleb Desir Nitrite Ql (U) Negative Normal NEGATIVE [facility] Comment on above: Performed By: #### A LT, LIPID, BMP #### [facility] [address] [place] [address] Dr. Kaleb Desir pH (U) 5.5 [pH] Normal 5-9 [facility] Comment on above: Performed By: #### A LT, LIPID, BMP #### [facility] [address] [place] [address] Dr. Kaleb Desir SPEC GRAVITY >=1.030 Abnormal 1.005-<=1.[address] [facility] Comment on above: Performed By: #### A LT, LIPID, BMP #### [facility] [address] [place] [address] Dr. Kaleb Desir UA PROTEIN Negative Normal NEGATIVE/ TRACE [facility] Comment on above: Performed By: #### A LT, LIPID, BMP #### [facility] [address] [place] [address] Dr. Kaleb Desir UR MICRO IND NOT INDICATED Normal [facility] Comment on above: Performed By: #### A LT, LIPID, BMP #### [facility] [address] [place] [address] Dr. Kaleb Desir Urobilinogen Qn (U) 0.2 {Silver'U}/dL Normal 0.2 - 1.0 [facility] Comment on above: Performed By: #### A LT, LIPID, BMP #### [facility] [address] [place] [address] Dr. Kaleb Desir LIPASEon 08-14-2022 Lipase [Catalytic activity/Vol] 91.0 U/L Normal 73.0-393.0 [facility] Comment on above: Performed By: #### C MP, LIPA #### [facility] [address] [place] [address] Dr. Kaleb Desir PROF 14(COMP METB)on 023 Albumin [Mass/Vol] 3.2 g/dL Critically low 3.4-5.0 [facility] Comment on above: Performed By: #### A LT, LIPID, BMP #### [facility] [address] [address] [address] Kaleb Desir Albumin/Globulin [Mass ratio] 1.0 {ratio} Normal [facility] Comment on above: Performed By: #### A LT, LIPID, BMP #### [facility] [address] [address] [address] Kaleb Desir ALP [Catalytic activity/Vol] 78 U/L Normal 46-116 [facility] Comment on above: Performed By: #### A LT, LIPID, BMP #### [facility] [address] [address] [address] Kaleb Desir ALT [Catalytic activity/Vol] 20 U/L Normal 16-63 [facility] Comment on above: Performed By: #### A LT, LIPID, BMP #### [facility] [address] [address] [address] Kaleb Desir Anion gap [Moles/Vol] 12.6 mmol/L Normal [facility] Comment on above: Performed By: #### A LT, LIPID, BMP #### [facility] [address] [address] [address] Kaleb Desir AST [Catalytic activity/Vol] 21 U/L Normal 15-37 [facility] Comment on above: Performed By: #### A LT, LIPID, BMP #### [facility] [address] [address] [address] Kaleb Desir Bilirubin [Mass/Vol] 0.8 mg/dL Normal 0.2-1.0 [facility] Comment on above: Performed By: #### A LT, LIPID, BMP #### [facility] [address] [address] [address] Kaleb Desir Calcium [Mass/Vol] 8.5 mg/dL Normal 8.5-10.1 [facility] Comment on above: Performed By: #### A LT, LIPID, BMP #### [facility] [address] [address] [address] Kaleb Desir Chloride [Moles/Vol] 105 mmol/L Normal 98-107 [facility] Comment on above: Performed By: #### A LT, LIPID, BMP #### [facility] [address] [address] [address] Kaleb Desir CO2 [Moles/Vol] 24.4 mmol/L Normal 21.0-32.0 [facility] Comment on above: Performed By: #### A LT, LIPID, BMP #### [facility] [address] [address] [address] Kaleb Desir Creatinine [Mass/Vol] 1.13 mg/dL Normal 0.70-1.30 [facility] Comment on above: Performed By: #### A LT, LIPID, BMP #### [facility] [address] [address] [address] Kaleb Desir EGFR-AF GHANAIAN >60 Normal >=60 [facility] Comment on above: Performed By: #### A LT, LIPID, BMP #### [facility] [address] [place] [address] Dr. Kaleb Desir EGFR-NON AF GHANAIAN >60 Normal >=60 [facility] Comment on above: Performed By: #### A LT, LIPID, BMP #### [facility] [address] [address] [address] Kaleb Desir Globulin (S) [Mass/Vol] 3.1 g/dL Normal [facility] Comment on above: Performed By: #### A LT, LIPID, BMP #### [facility] [address] [address] [address] Kaleb Desir Glucose [Mass/Vol] 129 mg/dL Critically high 74-106 [facility] Comment on above: Performed By: #### A LT, LIPID, BMP #### [facility] [address] [address] [address] Kaleb Desir Potassium [Moles/Vol] 4.0 mmol/L Normal 3.5-5.1 [facility] Comment on above: Performed By: #### A LT, LIPID, BMP #### [facility] [address] [address] [address] Kaleb Desir Protein [Mass/Vol] 6.3 g/dL Critically low 6.4-8.2 Th [facility] Comment on above: Performed By: #### A LT, LIPID, BMP #### [facility] [address] [address] [address] Kaleb Desir Sodium [Moles/Vol] 138 mmol/L Normal 136-145 [facility] Comment on above: Performed By: #### A LT, LIPID, BMP #### [facility] [address] [address] [address] Kaleb Desir Urea nitrogen [Mass/Vol] 15.0 mg/dL Normal 7.0-18.0 [facility] Comment on above: Performed By: #### A LT, LIPID, BMP #### [facility] [address] [address] [address] Kaleb Desir Urea nitrogen/Creatinin e [Mass ratio] 13.3 mg/mg Normal [facility] Comment on above: Performed By: #### A LT, LIPID, BMP #### [facility] [address] [place] [address] CSPINE WO CONon [...] KAILASH BARNES Date: 2022-06-11 21:51 Normal [facility] CT HEAD WO CONon 06-11-2022 CT HEAD [...] EDUARDO SINGLETON Date: 2022-06-11 21:57 Normal [facility] STOOL CULTUREon 02-20-2022 Campylobacter Culture Final report Normal [facility] Comment on above: Performed By: #### C XSTOOL #### [facility] [address] [place] [address] Dr. Kaleb Desir E coli Shiga Toxin EIA Negative Normal Negative [facility] Comment on above: Performed By: #### C XSTOOL #### [facility] [address] [address] [address] Kaleb Desir Result [address] [facility] Comment on above: Result Comment: No S almonella or Shigella recovered. Performed By: #### C XSTOOL #### [facility] [address] [place] [address] Dr. Kaleb Desir Result Comment: No C ampylobacter species isolated. Salmonella/Shigell a Screen Final report Normal [facility] Comment on above: Performed By: #### C XSTOOL #### [facility] [address] [place] [address] Dr. Kaleb Desir C. DIFF PCRon 02-16-2022 C. DIFFICILE PCR Negative Normal NEGATIVE [facility] Comment on above: Performed By: #### C DIFPOC #### [facility] [address] [place] [address] Dr. Kaleb Desir CBC AUTO DIFFon 02-16-2022 BASO # 0.0 103/ul Normal 0.0-0.1 [facility] Comment on above: Performed By: #### C BC #### [facility] [address] [place] [address] Dr. Kaleb Desir Basophils/100 WBC (Bld) 0.6 % Normal 0.2-2.0 [facility] Comment on above: Performed By: #### C BC #### [facility] [address] [place] [address] Dr. Kaleb Desir EO # 0.3 103/ul Normal 0.0-0.7 [facility] Comment on above: Performed By: #### C BC #### [facility] [address] [place] [address] Dr. Kaleb Desir Eosinophils/100 WBC (Bld) 4.0 % Normal 0.9-7.0 [facility] Comment on above: Performed By: #### C BC #### [facility] [address] [place] [address] Dr. Kaleb Desir Erythrocyte distribution width (RBC) [Ratio] 12.4 % Normal 11.0-15.0 [facility] Comment on above: Performed By: #### C BC #### [facility] [address] [place] [address] Dr. Kaleb Desir Hematocrit (Bld) [Volume fraction] 40.5 % Critically low 42.0-54.0 [facility] Comment on above: Performed By: #### C BC #### [facility] [address] [place] [address] Dr. Kaleb Desir Hemoglobin (Bld) [Mass/Vol] 13.7 g/dL Critically low 14.0-18.0 [facility] Comment on above: Performed By: #### C BC #### [facility] [address] [place] [address] Dr. Kaleb Desir IG # 0.01 10e3/ul Normal 0.00-0.03 [facility] Comment on above: Performed By: #### C BC #### [facility] [address] [place] [address] Dr. Kaleb Desir IG % 0.1 % Normal 0.0-0.5 [facility] Comment on above: Performed By: #### C BC #### [facility] [address] [place] [address] Dr. Kaleb Desir LYMPH # 1.7 103/ul Normal 1.2-3.8 [facility] Comment on above: Performed By: #### C BC #### [facility] [address] [place] [address] Dr. Kaleb Desir Lymphocytes/100 WBC (Bld) 25.5 % Normal 20.5-60.0 [facility] Comment on above: Performed By: #### C BC #### [facility] [address] [place] [address] Dr. Kaleb Desir MANUAL DIFF REQ NO Normal [facility] Comment on above: Performed By: #### C BC #### [facility] [address] [place] [address] Dr. Kaleb Desir MCH (RBC) [Entitic mass] 34.4 pg Critically high 25.9-34.0 [facility] Comment on above: Performed By: #### C BC #### [facility] [address] [address] [address] Kaleb Desir MCHC (RBC) [Mass/Vol] 33.8 g/dL Normal 29.9-35.2 [facility] Comment on above: Performed By: #### C BC #### [facility] [address] [address] [address] Kaleb Desir MCV (RBC) [Entitic vol] 101.8 fL Critically high 80.0-94.0 [facility] Comment on above: Performed By: #### C BC #### [facility] [address] [address] [address] Kaleb Desir MONO # 0.9 103/ul Critically high 0.3-0.8 [facility] Comment on above: Performed By: #### C BC #### [facility] [address] [address] [address] Kaleb Desir Monocytes/100 WBC (Bld) 12.4 % Critically high 1.7-12.0 [facility] Comment on above: Performed By: #### C BC #### [facility] [address] [address] [address] Kaleb Desir NEUT # 3.9 103/ul Normal 1.4-6.5 [facility] Comment on above: Performed By: #### C BC #### [facility] [address] [address] [address] Kaleb Desir Neutrophils/100 WBC (Bld) 57.4 % Normal 43.0-75.0 [facility] Comment on above: Performed By: #### C BC #### [facility] [address] [address] [address] Kaleb Desir Platelet mean volume (Bld) [Entitic vol] 9.0 fL Critically low 9.5-13.5 [facility] Comment on above: Performed By: #### C BC #### [facility] [address] [address] [address] Kaleb Desir PLT 181 103/ul Normal 150-450 [facility] Comment on above: Performed By: #### C BC #### [facility] [address] [address] [address] Kaleb Desir RBC 3.98 106/ul Critically low 4.70-6.10 [facility] Comment on above: Performed By: #### C BC #### [facility] [address] [address] [address] Kaleb Desir WBC 6.8 103/ul Normal 4.0-11.0 [facility] Comment on above: Performed By: #### C BC #### [facility] [address] [address] [address] Kaleb Desir PROF CHEM 8 (BAS METB)on Anion gap [Moles/Vol] 11.0 mmol/L Normal [facility] Comment on above: Performed By: #### A LT, LIPID, BMP #### [facility] [address] [place] [address] Dr. Kaleb Desir Calcium [Mass/Vol] 8.9 mg/dL Normal 8.5-10.1 [facility] Comment on above: Performed By: #### A LT, LIPID, BMP #### [facility] [address] [address] [address] Kaleb Desir Chloride [Moles/Vol] 105 mmol/L Normal 98-107 [facility] Comment on above: Performed By: #### A LT, LIPID, BMP #### [facility] [address] [address] [address] Kaleb Desri CO2 [Moles/Vol] 26.6 mmol/L Normal 21.0-32.0 [facility] Comment on above: Performed By: #### A LT, LIPID, BMP #### [facility] [address] [address] [address] Kaleb Desir Creatinine [Mass/Vol] 1.02 mg/dL Normal 0.70-1.30 [facility] Comment on above: Performed By: #### A LT, LIPID, BMP #### [facility] [address] [address] [address] Kaleb Desir EGFR-AF GHANAIAN >60 Normal >=60 [facility] Comment on above: Performed By: #### A LT, LIPID, BMP #### [facility] [address] [place] [address] Dr. Kaleb Desir EGFR-NON AF GHANAIAN >60 Normal >=60 [facility] Comment on above: Performed By: #### A LT, LIPID, BMP #### [facility] [address] [place] [address] Dr. Kaleb Desir Glucose [Mass/Vol] 102 mg/dL Normal 74-106 [facility] Comment on above: Performed By: #### A LT, LIPID, BMP #### [facility] [address] [place] [address] Dr. Kaleb Desir Potassium [Moles/Vol] 3.6 mmol/L Normal 3.5-5.1 [facility] Comment on above: Performed By: #### A LT, LIPID, BMP #### [facility] [address] [place] [address] Dr. Kaleb Desir Sodium [Moles/Vol] 139 mmol/L Normal 136-145 [facility] Comment on above: Performed By: #### A LT, LIPID, BMP #### [facility] [address] [place] [address] Dr. Kaleb Desir Urea nitrogen [Mass/Vol] 14.0 mg/dL Normal 7.0-18.0 [facility] Comment on above: Performed By: #### A LT, LIPID, BMP #### [facility] [address] [place] [address] Dr. Kaleb Desir Urea nitrogen/Creatinin e [Mass ratio] 13.7 mg/mg Normal [facility] Comment on above: Performed By: #### A LT, LIPID, BMP #### [facility] [address] [place] [address] Dr. Kaleb Desir CBC AUTO DIFFon 01-19-2022 BASO # 0.1 103/ul Normal 0.0-0.1 [facility] Comment on above: Performed By: #### A LT, LIPID, BMP #### [facility] [address] [place] [address] Dr. Kaleb Desir Basophils/100 WBC (Bld) 0.8 % Normal 0.2-2.0 [facility] Comment on above: Performed By: #### A LT, LIPID, BMP #### [facility] [address] [place] [address] Dr. Kaleb Desir EO # 0.4 103/ul Normal 0.0-0.7 [facility] Comment on above: Performed By: #### A LT, LIPID, BMP #### [facility] [address] [place] [address] Dr. Kaleb Desir Eosinophils/100 WBC (Bld) 5.8 % Normal 0.9-7.0 [facility] Comment on above: Performed By: #### A LT, LIPID, BMP #### [facility] [address] [place] [address] Dr. Kaleb Desir Erythrocyte distribution width (RBC) [Ratio] 12.2 % Normal 11.0-15.0 [facility] Comment on above: Performed By: #### A LT, LIPID, BMP #### [facility] [address] [place] [address] Dr. Kaleb Desir Hematocrit (Bld) [Volume fraction] 41.8 % Critically low 42.0-54.0 [facility] Comment on above: Performed By: #### A LT, LIPID, BMP #### [facility] [address] [place] [address] Dr. Kaleb Desir Hemoglobin (Bld) [Mass/Vol] 14.0 g/dL Normal 14.0-18.0 [facility] Comment on above: Performed By: #### A LT, LIPID, BMP #### [facility] [address] [place] [address] Dr. Kaleb Desir IG # 0.01 10e3/ul Normal 0.00-0.03 [facility] Comment on above: Performed By: #### A LT, LIPID, BMP #### [facility] [address] [place] [address] Dr. Kaleb Desir IG % 0.2 % Normal 0.0-0.5 [facility] Comment on above: Performed By: #### A LT, LIPID, BMP #### [facility] [address] [place] [address] Dr. Kaleb Desir LYMPH # 1.9 103/ul Normal 1.2-3.8 [facility] Comment on above: Performed By: #### A LT, LIPID, BMP #### [facility] [address] [place] [address] Dr. Kaleb Desir Lymphocytes/100 WBC (Bld) 31.7 % Normal 20.5-60.0 [facility] Comment on above: Performed By: #### A LT, LIPID, BMP #### [facility] [address] [place] [address] Dr. Kaleb Desir MANUAL DIFF REQ NO Normal [facility] Comment on above: Performed By: #### A LT, LIPID, BMP #### [facility] [address] [place] [address] Dr. Kaleb Desir MCH (RBC) [Entitic mass] 34.1 pg Critically high 25.9-34.0 [facility] Comment on above: Performed By: #### A LT, LIPID, BMP #### [facility] [address] [place] [address] Dr. Kaleb Desir MCHC (RBC) [Mass/Vol] 33.5 g/dL Normal 29.9-35.2 [facility] Comment on above: Performed By: #### A LT, LIPID, BMP #### [facility] [address] [place] [address] Dr. Kaelb Desir MCV (RBC) [Entitic vol] 101.7 fL Critically high 80.0-94.0 [facility] Comment on above: Performed By: #### A LT, LIPID, BMP #### [facility] [address] [place] [address] Dr. Kaleb Desir MONO # 0.8 103/ul Normal 0.3-0.8 [facility] Comment on above: Performed By: #### A LT, LIPID, BMP #### [facility] [address] [place] [address] Dr. Kalbe Desir Monocytes/100 WBC (Bld) 13.8 % Critically high 1.7-12.0 [facility] Comment on above: Performed By: #### A LT, LIPID, BMP #### [facility] [address] [place] [address] Dr. Kaleb Desir NEUT # 2.9 103/ul Normal 1.4-6.5 [facility] Comment on above: Performed By: #### A LT, LIPID, BMP #### [facility] [address] [place] [address] Dr. Kaleb Desir Neutrophils/100 WBC (Bld) 47.7 % Normal 43.0-75.0 [facility] Comment on above: Performed By: #### A LT, LIPID, BMP #### [facility] [address] [place] [address] Dr. Kaleb Desir Platelet mean volume (Bld) [Entitic vol] 8.9 fL Critically low 9.5-13.5 [facility] Comment on above: Performed By: #### A LT, LIPID, BMP #### [facility] [address] [place] [address] Dr. Kaleb Desir PLT 174 103/ul Normal 150-450 [facility] Comment on above: Performed By: #### A LT, LIPID, BMP #### [facility] [address] [place] [address] Dr. Kaleb Desir RBC 4.11 106/ul Critically low 4.70-6.10 [facility] Comment on above: Performed By: #### A LT, LIPID, BMP #### [facility] [address] [place] [address] Dr. Kaleb Desir WBC 6.0 103/ul Normal 4.0-11.0 [facility] Comment on above: Performed By: #### A LT, LIPID, BMP #### [facility] [address] [place] [address] Dr. Kaleb Desir LIPID PROFILEon 01-19-2022 CHOL-HDL RATIO NORM SEE BELOW Normal [facility] Comment on above: Result Comment: 3.3 - 4.4 LOW RISK 4.4 - 7.1 AVERAGE RISK 7.1 - 11.0 MODERATE RISK >11.0 HIGH RISK Performed By: #### A LT, LIPID, BMP #### [facility] [address] [address] [address] Kaleb Desir Cholesterol [Mass/Vol] 137 mg/dL Normal <=200 [facility] Comment on above: Performed By: #### A LT, LIPID, BMP #### [facility] [address] [address] [address] Kaleb Desir Cholesterol in HDL [Mass/Vol] 58 mg/dL Normal 40-60 [facility] Comment on above: Performed By: #### A LT, LIPID, BMP #### [facility] [address] [address] [address] Kaleb Desir Cholesterol in LDL [Mass/Vol] 68.6 mg/dL Normal [facility] Comment on above: Performed By: #### A LT, LIPID, BMP #### [facility] [address] [address] [address] Kaleb Desir Cholesterol.total/ Cholesterol in HDL [Mass ratio] 2.4 {ratio} Normal [facility] Comment on above: Performed By: #### A LT, LIPID, BMP #### [facility] [address] [address] [address] Kaleb Desir HDL NORMAL > or = 60 mg/dl - LO W CARDIOVASCULAR RISK <40 mg/dl - HIGH CARDIOVASCULAR RISK Normal [facility] Comment on above: Performed By: #### A LT, LIPID, BMP #### [facility] [address] [address] [address] Kaleb Desir LDL CALC NORMAL SEE BELOW Normal [facility] Comment on above: Result Comment: <100 mg/dl OPTIMAL 100 - 129 mg/dl NEAR OR ABOVE OPTIMAL 130 - 159 mg/dl BORDERLINE HIGH 160 - 189 mg/dl HIGH >190 mg/dl VERY HIGH Performed By: #### A LT, LIPID, BMP #### [facility] [address] [address] [address] Kaleb Desir Triglyceride [Mass/Vol] 52 mg/dL Normal <=150 [facility] Comment on above: Performed By: #### A LT, LIPID, BMP #### [facility] [address] [place] [address] Dr. Kaleb Desir VLDL CALC 10.4 mg/dL Normal [facility] Comment on above: Performed By: #### A LT, LIPID, BMP #### [facility] [address] [place] [address] Dr. Kaleb Desir PROF CHEM 8 (BAS METB)on Anion gap [Moles/Vol] 13.1 mmol/L Normal [facility] Comment on above: Performed By: #### A LT, LIPID, BMP #### [facility] [address] [place] [address] Dr. Kaleb Desir Calcium [Mass/Vol] 8.9 mg/dL Normal 8.5-10.1 [facility] [facility] Comment on above: Performed By: #### A LT, LIPID, BMP #### [facility] [address] [place] [address] Dr. Kaleb Desir Chloride [Moles/Vol] 105 mmol/L Normal 98-107 [facility] Comment on above: Performed By: #### A LT, LIPID, BMP #### [facility] [address] [place] [address] Dr. Kaleb Desir CO2 [Moles/Vol] 25.0 mmol/L Normal 21.0-32.0 [facility] Comment on above: Performed By: #### A LT, LIPID, BMP #### [facility] [address] [place] [address] Dr. Kaleb Desir Creatinine [Mass/Vol] 1.17 mg/dL Normal 0.70-1.30 [facility] Comment on above: Performed By: #### A LT, LIPID, BMP #### [facility] [address] [place] [address] Dr. Kaleb Desir EGFR-AF GHANAIAN >60 Normal >=60 [facility] Comment on above: Performed By: #### A LT, LIPID, BMP #### [facility] [address] [place] [address] Dr. Kaleb Desir EGFR-NON AF GHANAIAN 59 mL/min/1.73m2 Critically low >=60 [facility] Comment on above: Performed By: #### A LT, LIPID, BMP #### [facility] [address] [address] [address] Kaleb Desir Glucose [Mass/Vol] 103 mg/dL Normal 74-106 [facility] Comment on above: Performed By: #### A LT, LIPID, BMP #### [facility] [address] [place] [address] Dr. Kaleb Desir Potassium [Moles/Vol] 4.1 mmol/L Normal 3.5-5.1 [facility] Comment on above: Performed By: #### A LT, LIPID, BMP #### [facility] [address] [place] [address] Dr. Kaleb Desir Sodium [Moles/Vol] 139 mmol/L Normal 136-145 [facility] Comment on above: Performed By: #### A LT, LIPID, BMP #### [facility] [address] [place] [address] Dr. Kaleb Desir Urea nitrogen [Mass/Vol] 18.0 mg/dL Normal 7.0-18.0 [facility] Comment on above: Performed By: #### A LT, LIPID, BMP #### [facility] [address] [place] [address] Dr. Kaleb Desir Urea nitrogen/Creatinin e [Mass ratio] 15.4 mg/mg Normal [facility] Comment on above: Performed By: #### A LT, LIPID, BMP #### [facility] [address] [place] [address] Dr. Kalbe Desir [facility] 01-19-2022 ALT [Catalytic activity/Vol] 21 U/L Normal 16-63 [facility] Comment on above: Performed By: #### A LT, LIPID, BMP #### [facility] [address] [place] [address] Dr. Kaleb Desir Cardiovascular Lab Reporton 06-13-2020 Cardiovascular Lab Report [facility] Patient Name: Annelise Olson MR #: [id number] [facility] Physician: Camacho Mohamud MD Service Date: 06/13/2020 Department of Birthdate: 1935 Medicine Room #: CC Division of Cardiology Adult Cardiovascular Services [facility] [address] [place] [address] Cardiovascular Laboratory Report ATRIAL FLUTTER ABLATION AND [...] the sternum on the left using the IdentiGEN tool. The loop recorder was then injected [...] 167.6 cm Hair Foley DPM Work Phone: [facility] 07-16-2024 09:59-0400 Body mass index (BMI) [Ratio] 23.08 kg/m2 Hair Foley DPM Work Phone: [facility] 07-16-2024 09:59-0400 Body weight 64.86 kg Hair Foley DPM Work Phone: [facility] 07-16-2024 09:59-0400 Respiratory rate 18 /min Hair Foley DPM Work Phone: [facility] 06-24-2024 16:04-0500 Body temperature 97 [degF] Mike Vee MD Work Phone: [facility] 06-24-2024 16:04-0500 Body weight 63.6 kg Mike Vee MD Work Phone: [facility] 06-24-2024 16:04-0500 Diastolic blood pressure 72 mm[Hg] Mike Vee MD Work Phone: [facility] 06-24-2024 16:04-0500 Heart rate 63 /min Mike Vee MD Work Phone: [facility] 06-24-2024 16:04-0500 Respiratory rate 18 /min Mike Vee MD Work Phone: [facility] 06-24-2024 16:04-0500 SaO2% (BldA) [Mass fraction] 99 % Mike Vee MD Work Phone: [facility] 06-24-2024 16:04-0500 Systolic blood pressure 113 mm[Hg] Mike Vee MD Work Phone: [facility] 06-18-2024 10:40-0500 Body height 172.72 cm [facility] 06-18-2024 10:40-0500 Body mass index (BMI) [Ratio] 21.5 kg/m2 [facility] 06-18-2024 10:40-0500 Body weight 64.18 kg [facility] 06-18-2024 10:40-0500 Diastolic blood pressure 67 mm[Hg] [facility] 06-18-2024 10:40-0500 Heart rate 64 /min [facility] 06-18-2024 10:40-0500 SaO2% (BldA) [Mass fraction] 97 % [facility] 06-18-2024 10:40-0500 Systolic blood pressure 122 mm[Hg] [facility] 05-21-2024 10:40-0500 Body height 172.72 cm [facility] 05-21-2024 10:40-0500 Body mass index (BMI) [Ratio] 22.2 kg/m2 [facility] 05-21-2024 10:40-0500 Body weight 66.33 kg [facility] 05-21-2024 10:40-0500 Diastolic blood pressure 72 mm[Hg] [facility] 05-21-2024 10:40-0500 Heart rate 73 /min [facility] 05-21-2024 10:40-0500 Respiratory rate 12 /min [facility] 05-21-2024 10:40-0500 SaO2% (BldA) [Mass fraction] 98 % [facility] 05-21-2024 10:40-0500 Systolic blood pressure 116 mm[Hg] [facility] 05-20-2024 14:39-0500 Body height 167.6 cm Fatemeh Desiree DO Work Phone: [facility] 05-20-2024 14:39-0500 Body mass index (BMI) [Ratio] 23.08 kg/m2 Fatemeh Desiree DO Work Phone: [facility] 05-20-2024 14:39-0500 Body weight 64.86 kg Fatemeh Desiree DO Work Phone: [facility] 05-20-2024 14:39-0500 Diastolic blood pressure 77 mm[Hg] Fatemeh Desiree DO Work Phone: [facility] 05-20-2024 14:39-0500 Heart rate 50 /min Fatemeh Desiree DO Work Phone: [facility] 05-20-2024 14:39-0500 Systolic blood pressure 122 mm[Hg] Fatemeh Desiree DO Work Phone: [facility] 04-30-2024 10:19-0500 Body height 167.6 cm Hair Foley DPM Work Phone: [facility] 04-30-2024 10:19-0500 Body mass index (BMI) [Ratio] 22.92 kg/m2 Hair Foley DPM Work Phone: [facility] 04-30-2024 10:19-0500 Body weight 64.41 kg Hair Foley DPM Work Phone: [facility] 04-30-2024 10:19-0500 Respiratory rate 18 /min Hair Foley DPM Work Phone: [facility] 04-22-2024 11:00-0500 Body height 172.72 cm [facility] 04-22-2024 11:00-0500 Body mass index (BMI) [Ratio] 22.1 kg/m2 [facility] 04-22-2024 11:00-0500 Body weight 66.22 kg [facility] 04-22-2024 11:00-0500 Diastolic blood pressure 64 mm[Hg] [facility] 04-22-2024 11:00-0500 Heart rate 102 /min [facility] 04-22-2024 11:00-0500 Respiratory rate 12 /min [facility] 04-22-2024 11:00-0500 Systolic blood pressure 115 mm[Hg] [facility] 02-20-2024 09:47-0400 Body height 167.6 cm Hair Foley DPM Work Phone: [facility] 02-20-2024 09:47-0400 Body mass index (BMI) [Ratio] 22.92 kg/m2 Hair Foley DPM Work Phone: [facility] 02-20-2024 09:47-0400 Body weight 64.41 kg Hair Foley DPM Work Phone: [facility] 02-20-2024 09:47-0400 Diastolic blood pressure 75 mm[Hg] Hair Foley DPM Work Phone: [facility] 02-20-2024 09:47-0400 Heart rate 80 /min Hair Foley DPM Work Phone: [facility] 02-20-2024 09:47-0400 Systolic blood pressure 129 mm[Hg] Hair Foley DPM Work Phone: [facility] 02-17-2024 11:31-0400 Body mass index (BMI) [Ratio] 22.4 kg/m2 [facility] 02-17-2024 11:31-0400 Diastolic blood pressure 89 mm[Hg] [facility] 02-17-2024 11:31-0400 Systolic blood pressure 139 mm[Hg] [facility] 02-17-2024 11:02-0400 Body height 172.72 cm [facility] 02-17-2024 11:02-0400 Body weight 66.79 kg [facility] 02-17-2024 11:02-0400 Heart rate 60 /min [facility] 02-17-2024 11:02-0400 Respiratory rate 12 /min [facility] 01-28-2024 11:51-0400 Diastolic blood pressure 68 mm[Hg] Fatemeh Desiree DO Work Phone: [facility] 01-28-2024 11:51-0400 Heart rate 54 /min Fatemeh Desiree DO Work Phone: [facility] 01-28-2024 11:51-0400 SaO2% (BldA) [Mass fraction] 98 % Fatemeh Desiree DO Work Phone: [facility] 01-28-2024 11:51-0400 Systolic blood pressure 120 mm[Hg] Fatemeh Desiree DO Work Phone: [facility] 01-23-2024 11:12-0400 Body height 167.6 cm Hawk Hill DO Work Phone: [facility] 01-23-2024 11:12-0400 Body mass index (BMI) [Ratio] 22.92 kg/m2 Hawk Hill DO Work Phone: [facility] 01-23-2024 11:12-0400 Body temperature 97.5 [degF] Hawk Hill DO Work Phone: [facility] 01-23-2024 11:12-0400 Body weight 64.41 kg Hawk Hill DO Work Phone: [facility] 10-17-2023 10:39-0400 Body height 172.72 cm [facility] 10-17-2023 10:39-0400 Body mass index (BMI) [Ratio] 21.4 kg/m2 [facility] 10-17-2023 10:39-0400 Body weight 64.12 kg [facility] 10-17-2023 10:39-0400 Diastolic blood pressure 56 mm[Hg] [facility] 10-17-2023 10:39-0400 Heart rate 63 /min [facility] 10-17-2023 10:39-0400 Respiratory rate 12 /min [facility] 10-17-2023 10:39-0400 Systolic blood pressure 133 mm[Hg] [facility] 08-20-2023 10:13-0400 Blood Pressure Location HEATHER OQUENDO [facility] 08-20-2023 10:13-0400 Body temperature 97.34 [degF] HEATHER OQUENDO [facility] 08-20-2023 10:13-0400 Diastolic blood pressure 57 mm[Hg] HEATHER OQUENDO [facility] 08-20-2023 10:13-0400 Heart rate 64 /min HEATHER OQUENDO [facility] 08-20-2023 10:13-0400 Respiratory rate 19 /min HEATHER OQUENDO [facility] 08-20-2023 10:13-0400 Systolic blood pressure 105 mm[Hg] HEATHER GUEVARARY [facility] 06-20-2023 10:42-0500 Body height 172.72 cm [facility] 06-20-2023 10:42-0500 Body mass index (BMI) [Ratio] 22 kg/m2 [facility] 06-20-2023 10:42-0500 Body weight 65.77 kg [facility] 06-20-2023 10:42-0500 Diastolic blood pressure 66 mm[Hg] [facility] 06-20-2023 10:42-0500 Heart rate 103 /min [facility] 06-20-2023 10:42-0500 Respiratory rate 20 /min [facility] 06-20-2023 10:42-0500 Systolic blood pressure 102 mm[Hg] [facility] 05-09-2023 11:00-0500 Body height 172.72 cm Miguel Ball Other [facility] 05-09-2023 11:00-0500 Body mass index (BMI) [Ratio] 21.98 kg/m2 Miguel Ball Other [facility] Other 05-09-2023 11:00-0500 Body weight 65.59 kg Miguel Ball Other [facility] [employer] Other 05-09-2023 11:00-0500 Body weight 65.58 kg [facility] 05-09-2023 11:00-0500 Diastolic blood pressure 66 mm[Hg] Miguel Ball Other [facility] 05-09-2023 11:00-0500 Respiratory rate 12 /min Miguel Ball Other [facility] [employer] Other 05-09-2023 11:00-0500 Systolic blood pressure 118 mm[Hg] Miguel Ball Other [facility] 10-26-2022 10:30-0400 Body height 172.72 cm Miguel Ball Other [facility] [employer] Other 10-26-2022 10:30-0400 Body mass index (BMI) [Ratio] 21.89 kg/m2 Mgiuel Ball Other [facility] Other 10-26-2022 10:30-0400 Body weight 65.32 kg Miguel Ball Other [facility] [employer] Other 10-26-2022 10:30-0400 Diastolic blood pressure 60 mm[Hg] Miguel Ball Other [facility] [employer] Other 10-26-2022 10:30-0400 Respiratory rate 12 /min Miguel Ball Other [facility] Other 10-26-2022 10:30-0400 Systolic blood pressure 104 mm[Hg] Miguel Ball Other [facility] [employer] Other 08-17-2022 08:47-0400 Blood Pressure Location Conner SÁNCHEZ [facility] 08-17-2022 08:47-0400 Diastolic blood pressure 76 mm[Hg] Conner SÁNCHEZ [facility] 08-17-2022 08:47-0400 Heart rate 80 /min Conner SÁNCHEZ [facility] 08-17-2022 08:47-0400 Respiratory rate 16 /min Conner SÁNCHEZ [facility] 08-17-2022 08:47-0400 Systolic blood pressure 128 mm[Hg] Conner SÁNCHEZ [facility] 08-14-2021 09:20-0400 Blood Pressure Location Conner SÁNCHEZ [facility] 08-14-2021 09:20-0400 Diastolic blood pressure 76 mm[Hg] Conner SÁNCHEZ [facility] 08-14-2021 09:20-0400 Heart rate 61 /min Conner SÁNCHEZ [facility] 08-14-2021 09:20-0400 Systolic blood pressure 160 mm[Hg] Conner SÁNCHEZ [facility] Encounters Encounter Date Encounter Type Care Provider Facility Start: 07-24-2024 End: 07-24-2024 ambulatory SELF Facility:[facility] Start: 07-16-2024 End: 07-16-2024 BamTheTakeso flowsheet Hair Foley DPM Work Phone: [facility] Start: 07-16-2024 End: 07-16-2024 BamTheTakeso Relay[employer]sheet Hair Foley DPM Work Phone: [facility] Start: 07-16-2024 End: 07-16-2024 Patient encounter procedure Hair Foley DPM Work Phone: [facility] Comment on above: Verruca plantaris (P rimary Dx); Foot pain, left; Pain due to onychomycosis of toenails of both feet Start: 07-16-2024 End: 07-16-2024 ambulatory HAIR Naranjo ALAINA Not Available Start: 06-26-2024 ambulatory MASON ALMEIDA [facility] Start: 06-24-2024 End: 06-24-2024 ambulatory MIKE VEE Facility:[facility] Start: 06-24-2024 End: 06-24-2024 Office outpatient new 45 minutes Mike Vee MD Work Phone: Hematology/Oncology Comment on above: Macrocytosis (Primar y Dx) Start: 06-23-2024 End: 06-23-2024 Chart abstracting Mike Vee MD Work Phone: Hematology/Oncology Start: 06-18-2024 End: 06-18-2024 ambulatory [facility] Work Phone: Start: 06-18-2024 End: 06-18-2024 Patient encounter procedure [facility] Work Phone: Start: 05-22-2024 ambulatory [facility] Start: 05-21-2024 End: 05-21-2024 ambulatory [facility] Work Phone: Start: 05-21-2024 End: 05-21-2024 Patient encounter procedure [facility] Work Phone: Start: 05-20-2024 End: 05-20-2024 Office [...] MANUEL ERWIN Start: 05-20-2024 Non-patient / Non-visit [facility] Work Phone: Start: 04-30-2024 [...] Not Available Start: 04-24-2024 ambulatory CAMACHO MOHAMUD [facility] Start: 04-24-2024 ambulatory MASON ALMEIDA [facility] Start: 04-22-2024 End: 04-22-2024 Patient encounter procedure [facility] Work Phone: Start: 04-15-2024 Non-patient / Non-visit [facility] Work Phone: Start: 04-14-2024 Evaluation and management of inpatient STEVEI YULISSA [facility] Start: 04-13-2024 Evaluation and management of inpatient [facility] Start: 04-13-2024 Evaluation and management of inpatient [facility] Start: 04-13-2024 Evaluation and management of inpatient [facility] Start: 04-13-2024 Evaluation and management of inpatient [facility] Start: 04-12-2024 Non-patient / Non-visit [facility] Work Phone: Start: 04-12-2024 End: 04-15-2024 Evaluation and management of inpatient CAROL CEDILLO [facility] Start: 04-12-2024 Non-patient / Non-visit [facility] Work Phone: Start: 04-01-2024 End: 04-01-2024 ambulatory [facility] Start: 03-27-2024 ambulatory [facility] Start: 03-26-2024 ambulatory [facility] Start: 03-13-2024 ambulatory [facility] Start: 03-10-2024 End: 03-10-2024 ambulatory RIVKA [facility] Start: 02-28-2024 ambulatory [facility] Start: 02-26-2024 ambulatory [facility] Start: 02-26-2024 End: 02-26-2024 ambulatory [facility] Start: 02-21-2024 Non-patient / Non-visit [facility] Work Phone: Start: 02-20-2024 End: 02-20-2024 Bamboo flowsjordan Foley [...] both feet Start: 02-17-2024 End: 02-17-2024 ambulatory [facility] Work Phone: Start: 02-17-2024 End: 02-17-2024 Patient encounter procedure [facility] Work Phone: Start: 02-14-2024 Patient encounter procedure [facility] Start: 02-07-2024 Non-patient / Non-visit [facility] Work Phone: Start: 02-06-2024 ambulatory [facility] Start: 01-28-2024 End: 01-28-2024 Bamboo flowsheet Fatemeh Ramírez DO Work Phone: [facility] [address] Start: 01-28-2024 End: 01-28-2024 Bamboo flowsheet Fatemeh Ramírez DO Work Phone: [facility] [address] Start: 01-28-2024 End: 01-28-2024 ambulatory [facility] Work Phone: Start: 01-28-2024 End: 01-28-2024 Patient encounter procedure [facility] Work Phone: Start: 01-28-2024 End: 01-28-2024 Office [...] (Primary Dx) Start: 01-23-2024 End: 01-23-2024 ambulatory HWAK HILL Not Available Start: 01-23-2024 End: 01-23-2024 ambulatory HAWK HILL Not Available Start: 01-14-2024 End: 01-14-2024 ambulatory CAMACHO [facility] Start: 12-26-2023 ambulatory [facility] Start: 12-17-2023 ambulatory [facility] Start: 12-12-2023 End: 12-12-2023 ambulatory HAIR FOLEY Not Available Start: 12-04-2023 End: 12-04-2023 [facility] Start: 11-14-2023 End: 11-14-2023 ambulatory HAIR FOLEY Not Available Start: 10-29-2023 ambulatory CAMACHO [facility] Start: 10-24-2023 End: 10-24-2023 ambulatory HAIR FOLEY Not Available Start: 10-17-2023 End: 10-17-2023 ambulatory [facility] Work Phone: Start: 10-17-2023 End: 10-17-2023 Patient encounter procedure [facility] Work Phone: Start: 10-15-2023 ambulatory [facility] Start: 10-15-2023 ambulatory [facility] Start: 10-10-2023 End: 10-10-2023 ambulatory HAIR FOLEY Not Available Start: 10-09-2023 ambulatory CAMACHO [facility] Start: 09-26-2023 End: 09-26-2023 ambulatory HAIR A BROWN Not Available Start: 09-12-2023 End: 09-12-2023 ambulatory HAIR A BROWN Not Available Start: 09-11-2023 End: 09-11-2023 ambulatory FATEMEH RAMÍREZ Not Available Start: 09-02-2023 Non-patient / Non-visit [facility] Work Phone: Start: 08-29-2023 End: 08-29-2023 ambulatory SAVI HAMILTON Not Available Start: 08-29-2023 End: 08-29-2023 ambulatory HAIR FOLEY Not Available Start: 08-26-2023 End: 08-26-2023 ambulatory HAIR FOLEY Not Available Start: 08-20-2023 End: 08-21-2023 ambulatory HEATHER Dixon AZRA Facility:[facility] Start: 08-20-2023 End: 08-20-2023 Patient encounter procedure HEATHER OQUENDO [facility] Start: 08-15-2023 End: 08-15-2023 ambulatory HAIR FOLEY Not Available Start: 08-01-2023 End: 08-01-2023 ambulatory HAIR FOLEY Not Available Start: 07-29-2023 ambulatory CAMACHO MOHAMUD [facility] Start: 07-12-2023 End: 07-12-2023 [facility] Start: 07-10-2023 Non-patient / Non-visit [facility] Work Phone: Start: 06-20-2023 End: 06-20-2023 ambulatory [facility] Work Phone: Start: 06-20-2023 End: 06-20-2023 Patient encounter procedure [facility] Work Phone: Start: 05-29-2023 End: 05-29-2023 ambulatory Miguel Lala Other [place] Other Start: 05-29-2023 Telephone encounter Miguel BONILLA [facility] Start: 05-27-2023 End: 05-27-2023 ambulatory Miguel Lala Other [place] Other Start: 05-27-2023 Telephone encounter Miguel BONILLA [facility] Start: 05-15-2023 End: 05-15-2023 ambulatory Miguel Lala Other [place] Other Start: 05-15-2023 Telephone encounter Miguel Ball FP [facility] Start: 05-15-2023 Patient encounter procedure [facility] Start: 05-13-2023 End: 05-13-2023 ambulatory Miguel Ball Other [facility] Other Start: 05-13-2023 Telephone encounter Miguel Ball FP [facility] Start: 05-09-2023 End: 05-09-2023 ambulatory Miguel Ball Other [place] Other Start: 05-09-2023 Office outpatient vi sit 25 minutes Miguel Ball [facility] Start: 05-09-2023 End: 05-09-2023 Patient encounter procedure [facility] Work Phone: Start: 01-29-2023 End: 01-29-2023 ambulatory Miguel Ball Other [place] Other Start: 01-29-2023 Telephone encounter Miguel Ball FP [facility] Start: 01-21-2023 End: 01-21-2023 ambulatory Miguel Ball Other [place] Other Start: 01-21-2023 Telephone encounter Miguel Ball FP [facility] Start: 12-31-2022 End: 12-31-2022 ambulatory Miguel Ball Other [place] Other Start: 12-31-2022 Telephone encounter Miguel Ball [facility] Start: 12-29-2022 End: 12-29-2022 ambulatory Miguel Ball Other [place] Other Start: 12-29-2022 Telephone encounter Miguel Ball [facility] Start: 12-26-2022 End: 12-26-2022 ambulatory Miguel Ball Other [place] Other Start: 12-26-2022 Telephone encounter Miguel Ball [facility] Start: 10-26-2022 End: 10-26-2022 ambulatory Miguel Lala Other [place] Other Start: 10-26-2022 Office outpatient vi sit 25 minutes Miguel Lala [facility] Start: 08-17-2022 End: 08-17-2022 Patient encounter procedure Conner SÁNCHEZ [facility] Start: 08-14-2022 End: 08-14-[address] MIGUEL LALA Facility:[facility] Start: 06-11-2022 End: 06-12-2022 ambulatory KAILASH BARNES Facility:[facility] Start: 02-16-2022 End: 02-17-[address] MIGUEL LALA Facility:[facility] Start: 01-19-2022 End: 01-20-[address] MIGUEL LALA Facility:[facility] Start: 01-16-2022 Adult health examination Сергей chowdhury Dai Other [facility] Other Start: 01-16-2022 Encounter for genera l adult medical examination without abnormal findings Miguel Lala Other [facility] Other Start: 08-14-2021 End: 08-14-2021 Patient encounter procedure Conner SÁNCHEZ [facility] Procedures Date Procedure Procedure Detail Performing [...] DTaP,Tdap,Td Vaccine (3 - Td or Tdap) [facility] Start: 04-15-2027 Diabetes Screening Diabetes Screenin g [facility] Start: 12-23-2024 End: 12-23-2024 Follow-up encounter 12/23/2024 2:00 PM EDT Visit (SP) Office Hematology/Oncology [facility] [place] [address] Mike Vee MD [facility] [place] [address] 6 month follow up Hematology/Oncology Comment on above: 6 month follow up Start: 12-23-2024 End: 12-23-2024 Patient encounter procedure 12/23/2024 1:45 PM EDT Office Visit [facility] [address] [place] [address] [facility] Comment on above: 6 month follow up Start: 09-08-2024 End: 09-08-2024 Patient encounter procedure 09/08/2024 2:15 PM EDT Office Visit CARLOS MANUEL ERWIN [address] [place] [id number] Fatemeh Ramírez DO [address] [place] [id number] [facility] Start: 08-06-2024 Covid-19 Vaccine ( season) Covid-19 Vaccine ( season) [facility] Start: 07-16-2024 End: 07-16-2024 Patient encounter procedure [facility] Comment on above: Verruca plantaris (P rimary Dx); Foot pain, left; Pain due to onychomycosis of toenails of both feet Start: 06-24-2024 End: 06-24-2024 ambulatory 06/24/2024 4:00 PM EST Visit (SP) Office Hematology/Oncology [address] [place] [address] [place] [address] Mike Vee MD [address] [place] [address] [place] [address] Cornelio Lala with [facility] Comment on above: Referred by Dr. Ethel Lala with [facility] Start: 06-24-2024 End: 09-23-2024 CBC W Auto Differential panel - Blood COMPLETE BLOOD COUNT AND DIFFERENTIAL Lab Routine Macrocytosis Expected: 06/24/2024, Expires: 09/23/2024 [facility] Work Phone: Comment on above: Expected: 06/24/2024 , Expires: 09/23/2024 Start: 06-24-2024 End: 09-23-2024 Cobalamin (Vitamin B12) [Mass/volume] in Serum or Plasma VITAMIN B12 Lab Routine Macrocytosis Expected: 06/24/2024, Expires: 09/23/[address] [facility] Comment on above: Expected: 06/24/2024 , Expires: 09/23/2024 Start: 06-24-2024 End: 09-23-2024 Comprehensive metabolic 2000 panel - Serum or Plasma COMPREHENSIVE METABOLIC PANEL Lab Routine Macrocytosis Expected: 06/24/2024, Expires: 09/23/[address] [facility] Comment on above: Expected: 06/24/2024 , Expires: 09/23/2024 Start: 06-24-2024 End: 09-23-2024 Folate [Mass/volume] in Serum or Plasma FOLATE, SERUM Lab Routine Macrocytosis Expected: 06/24/2024, Expires: 09/23/[address] [facility] Comment on above: Expected: 06/24/2024 , Expires: 09/23/2024 Start: 06-24-2024 End: 09-23-2024 KAPPA/RUFF,FREE,SER KAPPA/RUFF,FREE,SER Lab Routine Macrocytosis Expected: 06/24/2024, Expires: 09/23/[address] [facility] Comment on above: Expected: 06/24/2024 , Expires: 09/23/2024 Start: 06-24-2024 End: 09-23-2024 PROTEIN ELECTROPHORESIS SERUM W/INTERP PROTEIN ELECTROPHORESIS SERUM W/INTERP Lab Routine Macrocytosis Expected: 06/24/2024, Expires: 09/23/[address] [facility] Comment on above: Expected: 06/24/2024 , Expires: 09/23/2024 Start: 05-20-2024 End: 05-20-2024 Patient encounter procedure 05/20/2024 2:30 PM EST Office Visit [facility] [address] [place] [id number] Fatemeh Ramírez DO [address] [place] [address] Arrived [facility] Comment on above: Arrived Start: 05-19-2024 End: 05-19-2024 Patient encounter procedure 05/19/2024 11:30 AM EST Office Visit [facility] [place] [address] [place] [id number] Fatemeh Ramírez, DO [address] [place] [address] [facility] [address] Start: 05-06-2024 Advance Directive Discussion Advance Directive Discussion [facility] Start: 04-30-2024 End: 04-30-2024 Patient encounter procedure [facility] Comment on above: Verruca plantaris (P rimary Dx); Foot pain, left; Pain due to onychomycosis of toenails of both feet Start: 02-20-2024 End: 02-20-2024 Patient encounter procedure 02/20/2024 9:40 AM EDT [facility] [address] [facility] [address] [place] [address] Hair Foley DPM [address] [facility] [address] [place] [address] [facility] Start: 01-28-2024 End: 01-28-2024 Patient encounter procedure [facility] [address] Comment on above: Arrived Start: 01-05-2024 Covid-19 Vaccine () Covid-19 Vaccine () [facility] Start: 01-05-2024 Influenza vaccination Influenza Vacc ine (#1) [facility] Start: 06-20-2023 Patient referral [facility] Work Phone: Start: 04-03-2018 Pneumococcal Vaccine : 50+ (2 of 2 - PPSV23) Pneumococcal Vaccine: 50+ (2 of 2 - PPSV23) [facility] Start: 2011 RSV Vaccine (1 - 1-d ose 75+ series) RSV Vaccine (1 - 1-dose 75+ series) [facility] Start: 1954 Anxiety Screening Anxiety Screening [facility] Start: 1954 Depression Screening Depression Scre ening [facility] Comprehensive metabo lic 2000 panel - Serum or Plasma [facility] Patient referral [facility] Work Phone: [facility] Immunizations Immunization Date Immunization Notes Care Provider Fa cility 01-28-2024 influenza, high dose seasonal, preservative-free [facility] 01-28-2024 influenza virus vaccine, unspecified formulation Hair Foley DPM Work Phone: [facility] 01-28-2023 influenza virus vaccine, unspecified formulation [facility] 01-28-2023 influenza, high dose seasonal, preservative-free Miguel Lala Other [facility] Other 02-10-2022 COVID-19 Vaccine Pfi zer - Documentation Purposes Only Miguel Lala Other [facility] 01-05-2022 influenza virus vaccine, split virus (incl. purified surface antigen) Miguel Lala Other [facility] [employer] Other 01-05-2022 influenza virus vaccine, unspecified formulation [facility] 02-15-2021 influenza virus vaccine, unspecified formulation Conner SÁNCHEZ [facility] 01-17-2021 influenza virus vaccine, split virus (incl. purified surface antigen) Miguel Lala Other [facility] [employer] Other 01-17-2021 influenza virus vaccine, unspecified formulation [facility] 06-15-2020 SARS-CoV-2 (COVID-19 ) Ad26 vaccine, recombinant Conner SÁNCHEZ [facility] 05-12-2020 SARS-CoV-2 (COVID-19 ) Ad26 vaccine, recombinant Conner SÁNCHEZ [facility] 01-02-2020 influenza virus vaccine, split virus (incl. purified surface antigen) Miguel Lala Other [facility] Other 01-02-2020 influenza virus vaccine, unspecified formulation [facility] 02-12-2018 influenza virus vaccine, split virus (incl. purified surface antigen) Miguel Lala Other [facility] [employer] Other 02-12-2018 influenza virus vaccine, unspecified formulation [facility] 04-03-2017 pneumococcal conjuga te vaccine, 13 valent Miguel Lala Other [facility] 03-22-2017 influenza virus vaccine, split virus (incl. purified surface antigen) Miguel Dai Other [facility] [employer] Other 03-22-2017 influenza virus vaccine, unspecified formulation [facility] 02-08-2016 diphtheria, tetanus toxoids and acellular pertussis vaccine, unspecified formulation Miguel Lala Other [facility] 01-03-2016 influenza virus vaccine, split virus (incl. purified surface antigen) Miguel Dai Other [facility] [employer] Other 01-03-2016 influenza virus vaccine, unspecified formulation [facility] 05-10-2015 pneumococcal conjuga te vaccine, 13 valent Miguel Dai Other [facility] 01-13-2014 tetanus and diphther ia toxoids, adsorbed, preservative free, for adult use (5 Lf of tetanus toxoid and 2 Lf of diphtheria toxoid) Miguel Lala Other [facility] 03-11-2013 tetanus and diphther ia toxoids, adsorbed, preservative free, for adult use (5 Lf of tetanus toxoid and 2 Lf of diphtheria toxoid) Miguel Lala Other [facility] 01-26-2013 tetanus and diphther ia toxoids, adsorbed, preservative free, for adult use (5 Lf of tetanus toxoid and 2 Lf of diphtheria toxoid) Miguel Lala Other [facility] 01-21-2013 tetanus and diphther ia toxoids, adsorbed, preservative free, for adult use (5 Lf of tetanus toxoid and 2 Lf of diphtheria toxoid) Miguel Lala Other [facility] 04-12-2010 pneumococcal polysaccharide vaccine, 23 valent Miguel Lala Other [facility] Payers Date Payer Category Payer Private Health Insurance [id number] 2023 Unknown AARP AARP [id number] 2023-Present [address] [place] [address] [id number] 2001 Medicare [id number] 1959 Medicare [id number] 1959 Unknown [id number] 1936 Unknown [id number] 2.16.840.1.819747.3.579.2.5 93 1936 Unknown [id number] 2.16.840.1.296197.3.579.2.5 93 1936 Unknown [id number] 2.16.840.1.477173.3.579.2.5 93 1936 Unknown [id number] 2.16.840.1.946488.3.579.2.5 93 1936 Unknown [id number] 2.16.840.1.007762.3.579.2.7 27 1936 Unknown [id number] 2.16.840.1.796399.3.579.2.1 259 1936 Unknown [id number] 2.16.840.1.966263.3.579.2.1 259 1936 Unknown [id number] 2.16.840.1.341770.3.579.2.1 259 1936 Unknown [id number] 2.16.840.1.145941.3.579.2.1 259 1936 Unknown [id number] 2.16.840.1.234664.3.579.2.1 259 1936 Unknown [id number] 2.16.840.1.396945.3.579.2.1 259 1936 Unknown [id number] 2.16.840.1.776027.3.579.2.1 259 1936 Unknown [id number] 2.16.840.1.767903.3.579.2.1 259 1936 Unknown [id number] 2.16.840.1.428626.3.579.2.1 259 1936 Unknown [id number] 2.16.840.1.324426.3.579.2.1 259 1936 Unknown [id number] 2.16.840.1.031599.3.579.2.1 259 1936 Unknown [id number] 2.16.840.1.870045.3.579.2.1 259 1936 Unknown [id number] 2.16.840.1.297454.3.579.2.1 259 1936 Unknown [id number] 2.16.840.1.096677.3.579.2.1 259 1936 Unknown [id number] 2.16.840.1.463277.3.579.2.1 259 1936 Unknown [id number] 2.16.840.1.403697.3.579.2.1 259 1936 Unknown [id number] 2.16.840.1.829244.3.579.2.1 259 1936 Unknown [id number] 2.16.840.1.816559.3.579.2.1 259 1936 Unknown [id number] 2.16.840.1.231969.3.579.2.1 259 Social History Date Type Detail Facility Start: 08-14-2021 End: 06-04-2023 Tobacco smoking status Never smoked tobacco (finding) [facility] Tobacco smoking status Never [facility] Start: 01-28-2024 End: 05-20-2024 Sex Assigned At Male [facility] Start: 1935 Sex Assigned At Male F [facility] Start: 06-04-2023 End: 06-23-2024 Tobacco use and exposure Smokeless tobacco non-user [facility] Start: 01-28-2024 End: 07-16-2024 Alcoholic beverage intake Defer [facility] Start: 01-28-2024 End: 05-20-2024 History of Social function [facility] Start: 1935 Sex assigned at Not on file [facility] Start: 05-21-2024 End: 06-18-2024 Sex Male (finding) [facility] History of tobacco use Passive smoker [facility] Start: 06-23-2024 End: 06-24-2024 Alcoholic beverage intake Ex-drinker (finding) [facility] Functional Status Date Assessment Result Facility 08-20-2023 Functional Status N/A [facility] 08-17-2022 Functional Status Yes [facility] Clinical Notes 08-14-2021 to 07-24-2024 Hair Foley DPM - 07/16/2024 10:10 AM EDTPatient Mike Morton MD - 06/24/2024 4:00 PM Rajiv Ramírez DO - 05/20/2024 2:30 PM EST Note Date & Type Note Facility 07-24-2024 Note HNO ID: [id number] Author: AGUILA LIZARRAGA OCCA Service: ? Author Type: Endoscopy Tech Type: Progress Notes Filed: 07/24/2024 07:49 Note [...] Wt 65.1 kg (143 lb 9.6 oz) [facility] 07-16-2024 History of Present illness Narrative Patient: [...] Strain: Low Risk (04/12/2024) Received from [facility] Overall Financial Resource Strain (CARDIA) Difficulty of Paying Living Expenses: Not hard at all Food Insecurity: No Food Insecurity (04/24/2024) Received from [facility] Hunger Vital Sign Within the past 12 months, you worried that your food would run out before you got the money to buy more.: Never true Within the past 12 months, the food you bought just didn't last and you didn't have money to get more.: Never true Transportation Needs: No Transportation Needs (04/24/2024) Received from [facility] Transportation In the past 12 months, has [...] Not At Risk (06/26/2024) Received from [facility] Humiliation, Afraid, Rape, and Kick questionnaire Fear of Current or Ex-Partner: No Emotionally Abused: No Physically Abused: No Sexually Abused: No Housing Stability: Low Risk (04/24/2024) Received from [facility] Housing Stability Vital Sign In the last 12 months, was there a time when you were not able to pay the mortgage or rent on time?: No In the past 12 months, how many times have you moved where you were living?: 1 At any time in the past 12 months, were you homeless or living in a prison (including now)?: No ROS: Gastrointestinal: denies abdominal pain, ulcers, or changes in appetite or bowel habits Musculoskeletal: Positive history of arthritis, denies loss of strength, pain to hip, knees, back positive history of hip replacement in the past Cardiovascular: denies CP, palpitations, with history of IL in the past and being worked up [...] Patient may continue with conservative treatments including kktu-ujb-mrkazgz anti-inflammatories and other treatments suggested today. Patient may want to be scheduled for surgical intervention in the near future. Discussed possible excision of neoplasm of skin with single lobe flap closure in an outpatient environment. Patient does see a canvas baster jumpbasting Dr Ramirez and primary care provider is Dr. Camacho Raymundo. He would like Ultram postoperatively and will call in near future if would like to schedule surgical intervention Hair Foley DPM documented in this encounter [facility] 06-26-2024 Note Subjective Patient ID: Annelise Olson is a 89 y.o. male who presents for No chief complaint on file.. Doing well. Able to vacuum and climb stairs. In cardiac rehab at [place] and doing well. 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 No results found for this or any previous visit (from the past 36 hour(s)). No follow-ups on file. [facility] 06-24-2024 Instructions Mike Vee MD - 06/24/2024 4:22 PM EST Labs today F/u in 6 months documented in this encounter [facility] 06-24-2024 History of Present illness Narrative PATIENT NAME: Annelise Olson CLINIC NO.: [id number] ATTENDING PHYSICIAN: Mike Vee MD DATE OF SERVICE: June 24, [address] Miguel Lala ([facility]) [address] [place] [phone] thank you for referring Annelise Olson for [...] in [address] Miguel Lala ([facility]) [address] [place] [address] thank you for allowing me to participate in Annelise Olson care, if there are any questions or concerns please do not hesitate to contact me at the number below. I spent a total of 45 minutes on the date of the service which included preparing to see the patient, ijkm-uy-uvad patient care, completing clinical documentation, obtaining and/or reviewing separately obtained history, performing a medically appropriate examination, counseling and educating the patient/family/caregiver, ordering medications, tests, or procedures, communicating with other HCPs (not separately reported), independently interpreting results (not separately reported), communicating results to the patient/family/caregiver, and care coordination (not separately reported). Mike Vee MD. Hematology/Medical Oncology [facility] [phone] CC: documented in this encounter [facility] 06-24-2024 Note HNO ID: [id number] Author: MIKE VEE MD Service: ? Author Type: Physician Type: Progress Notes Filed: 06/25/2024 13:54 Note Text: PATIENT NAME: Annelise Olson [facility] NO.: [id number] ATTENDING PHYSICIAN: Mike Vee MD DATE OF SERVICE: June 24, [address] Miguel Lala ([facility]) [address] [facility] [phone] thank you for referring Annelise Olson for [...] in [address] Miguel Lala ([facility]) [address] [place] [phone] thank you for allowing me to participate in Annelise Olson care, if there are any questions or concerns please do not hesitate to contact me at the number below. I spent a total of 45 minutes on the date of the service which included preparing to see the patient, lnig-eg-dryx patient care, completing clinical documentation, obtaining and/or reviewing separately obtained history, performing a medically appropriate examination, counseling and educating the patient/family/caregiver, ordering medications, tests, or procedures, communicating with other HCPs (not separately reported), independently interpreting results (not separately reported), communicating results to the patient/family/caregiver, and care coordination (not separately reported). Mike Vee MD. Hematology/Medical Oncology [facility] [phone] CC: [facility] 05-20-2024 History of Present illness Narrative Chief [...] History: Procedure Laterality Date CARDIAC SURGERY 1994 [facility] CARDIAC SURGERY 04/12/2024 open heart CORONARY ARTERY BYPASS GRAFT HERNIA REPAIR [facility] OTHER SURGICAL HISTORY ablation TRANSURETHRAL [...] behavioral, psychotic, or mood disturbance or anxiety ([facility]) - memantine (Namenda) 10 MG tablet; Take [...] on it. 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 His high TSH was sent to PCP for eval and treatment. Plan Add Namenda and titrate up to 10 mg [address] 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 to assess for safety and [...] clinic: 3-4 m documented in this encounter [facility] 04-30-2024 History of Present illness Narrative Patient: [...] Strain: Low Risk (04/12/2024) Received from [facility] Overall Financial Resource Strain (CARDIA) Difficulty of Paying Living Expenses: Not hard at all Food Insecurity: No Food Insecurity (04/12/2024) Received from [facility] Hunger Vital Sign Within the past 12 months, you worried that your food would run out before you got the money to buy more.: Never true Ran Out of Food in the Last Year: Not on file Transportation Needs: No Transportation Needs (04/12/2024) Received from [facility] Transportation In the past 12 months, has lack of transportation kept you from medical appointments or from getting medications?: No Lack of Transportation (Non-Medical): Not on file Physical Activity: Not on file Stress: Not on file Social Connections: Not on file Intimate Partner Violence: Unknown (04/12/2024) Received from [facility] Humiliation, Afraid, Rape, and Kick questionnaire Fear of Current or Ex-Partner: No Emotionally Abused: Not on file Physically Abused: Not on file Sexually Abused: Not on file Housing Stability: Low Risk (04/12/2024) Received from [facility] Housing Stability Vital Sign In the last 12 months, was there a time when you were not able to pay the mortgage or rent on time?: No Number of Times Moved in the Last Year: Not on file At any time in the past 12 months, were you homeless or living in a prison (including now)?: No ROS: Gastrointestinal: denies abdominal pain, ulcers, or changes in appetite or bowel habits Musculoskeletal: Positive history of arthritis, denies loss of strength, pain to hip, knees, back positive history of hip replacement in the past Cardiovascular: denies CP, palpitations, with history of IL in the past and being worked up [...] Patient may continue with conservative treatments including fenr-lno-nzzknsl anti-inflammatories and other treatments suggested today. Patient may want to be scheduled for surgical intervention in the near future. Discussed possible excision of neoplasm of skin with single lobe flap closure in an outpatient environment. Patient does see a canvas baster jumpbasting Dr Ramirez and primary care provider is Dr. Camacho Raymundo. He would like Ultram postoperatively and will call in near future if would like to schedule surgical intervention Hair Foley DPM documented in this encounter [facility] 04-24-2024 Note Subjective Patient ID: Annelise Olson is a 89 y.o. male who presents for Hospital Follow-up and myocardial infarction. Good No pain, no chest pain or shortness of breath. Able to walk in the mall Not in cardiac rehab Recent NSST IL due to subtotal L main stenosis to [...] after a very high risk non-ST elevation IL due to a 99% L main coronary stenosis treated with a single drug eluting stent. Generally he is doing well, there is some pedal edema which is new. Will increase aldactone and refer for cardiac rehab. Recommend: Stop Farxiga due to cost Stop isosorbide, no chest pain Increase aldactone to 25 daily Start cardiac rehab at [facility] Diagnosis Plan 1. Paroxysmal atrial fibrillation [...] past 36 hour(s)). No follow-ups on file. [facility] 04-22-2024 Evaluation note Diagnosis Onset Date Resolution [...] Subclinical hypothyroidism acute May 21, 2024 10:27am [facility] Work Phone: 1(160) 699-416312-18-2024 Evaluation note* Diagnosis Onset Date Resolution Status [...] 21, 2024 10:27am Chronic kidney disease acute [place] 2024 10:27am Hypercholesterolemia acute 2024 10:27am Ischemic cardiomyopathy acute J anuary 2024 10:27am Macrocytosis acute May 10:27am Mild cognitive impairment acute May 21, 2024 10:27am Primary hypertension acute 2024 10:27am Subclinical hypothyroidism acute May 21, 2024 10:27am Acute sinusitis noneactive June 18, 2024 10:36am Viral syndrome noneactive June 062024 10:36am [facility] Work Phone: 1(744) 278-312212-11-2024 NoteOccupational Therapy Name: Annelise Olson Date of : 1935 Today's Date: 04/15/24 Pt is unable to be seen for therapy at this time secondary to Discharging Check No Charge [facility] Discharge Summary Final Discharge Diagnosis: NSTEMI 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, 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 He was transferred from [facility] with NSTEMI. He initially presented to the [place] emergency department (ED) with chest pain and shortness of breath. Labs revealed first troponin of 24.4 and second troponin of 152.5. Initial EKG showed ST depression in the lateral leads. He was given nitroglycerin, aspirin, and morphine with repeat EKG revealing improved ST depression. He was transferred to the [facility] ([facility]) on 04/12 for further cardiac workup and cardiac cath, as he was already established with the [facility] cardiology group. On admission, he denied chest pain and shortness of breath, but had bradycardia in the 50s. His metoprolol was held and his heart rate normalized by the following day. While at [facility], he had the following [...] Center 04/24/2024 9:00 AM Mason Almeida MD [facility] CARD [facility] 06/16/2024 10:00 AM Camacho Mohamud MD [...] Do not crush or chew. krill oil [id number] mg capsule Generic drug: jpotl-oh-7-tdh-zak-vvyqlmo-ast lisinopril 10 mg tablet metoprolol succinate XL 25 mg 24 hr tablet Commonly known as: Toprol- (more content not included)...[facility]12-11-2024 Note Attestation signed by Joseluis Manuel MD [...] together with antiplatelet therapies based on the Mitchell AF trial Aspirin can be dropped in [...] 650 mg, 650 mg, oral, q6h PRN, [facility] aspirin chewable tablet 81 mg, 81 mg, oral, Daily with breakfast, [facility], 81 mg at 04/14/24927 atorvastatin (Lipitor) tablet 40 mg, 40 mg, oral, Daily before evening meal, [facility], 40 mg at 04/14/241738 clopidogrel (Plavix) tablet 75 mg, 75 mg, oral, Daily, Radha Bray MD, 75 mg at 04/14/242111 dapagliflozin propanediol (Farxiga) tablet 10 mg, 10 mg, oral, Daily, Lalit Lindsay MD, 10 mg at 04/13/24936 [Held by provider] furosemide (Lasix) tablet 40 mg, 40 mg, oral, q AM, [facility] isosorbide mononitrate ER (Imdur) 24 hr tablet 30 mg, 30 mg, oral, Daily, [facility], 30 mg at 04/14/24927 lisinopril tablet 10 mg, 10 mg, oral, Daily, Samantha Castro MD melatonin tablet 5 mg, 5 mg, oral, Nightly PRN, [facility] metoprolol succinate XL (Toprol-XL) 24 hr split tablet 12.5 mg, 12.5 mg, oral, Daily, [facility], 12.5 mg at 04/14/24927 nitroglycerin (Nitrostat) SL tablet 0.4 mg, 0.4 mg, sublingual, q5 min PRN, [facility], 0.4 mg at 04/13/242043 ondansetron ODT (Zofran-ODT) disintegrating tablet 4 mg, 4 mg, oral, q8h PRN OR ondansetron HCl (PF) (Zofran) injection 4 mg, 4 mg, intravenous, q6h PRN, Rebekah Morales CNP Oxygen Therapy, , inhalation, Continuous, [facility], Oxygen Off at 04/12/24 1630 pantoprazole (ProtoNix) EC tablet 40 mg, 40 mg, oral, Daily, Rebekah Morales CNP, 40 mg at 04/15/24 0612 rivaroxaban (Xarelto) tablet 15 mg, 15 mg, oral, Daily with evening meal, Samantha Castro MD, 15 mg at 04/14/24 1739 sennosides-docusate sodium (Pippa-Colace) 8.6-50 mg per tablet 1 tablet, 1 tablet, oral, Daily PRN, Rebekah Morales SUPERVISOR DELIVERY DEPARTMENT Insert peripheral IV, , , Once AND [...] Value Ventricular Rate 66 Atrial Rate 66 IA Interval 336 QRS DURATIO (more content not included)...[facility] 04-14-2024 NoteSpiritual Care Note Patient name: Annelise Olson Age: 88 y.o. Room: [facility]310- 04/14/24 1528 Clinical Encounter Type Visited With [...] some confusion.) Pastoral Intervention Spiritual support;Prayers;Emotional support;Other (Distribution Systems Superintendent met son in hallway and offered support. Listened to family's concern and called Pt Advocate--left message. Called AC Yvette--made family's request known to AC. Gave family Pt Advocate # and prayed with family. Visited pt & in room, prayed.) Response Appreciative Pastoral Care Notes [facility]12-10-2024 NoteCase was discussed with the GERONIMO on 04/12/2024. I agree with the history, physical, assessment, and plan of care. I discussed the findings and therapeutic plan. I agree with the documentation, except for any updates below. Carol Cedillo, [facility]12-10-2024 Note As the teaching physician, I have personally performed or re-performed the history of present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 Relationship Specialty Start Date End Date Miguel Lala MD [address] [place] [phone] PCP - General Internal Medicine 06/04/23 Fatemeh Ramírez DO [address] [place] [address] Referring Physician Neurology 07/09/23 Savi Hamilton CCC-A [address] [place] [address] Audiology 08/31/23 Conveyor Monitor Relationship Specialty Start Date End Date Miguel Lala MD [address] [place] [phone] PCP - General Internal Medicine 06/04/23 Fatemeh Ramírez DO [address] [place], [place] [id number] Referring Physician Neurology 07/09/23 Savi Hamilton CCC-A [address] [place] [address] Audiology 08/31/23 Conveyor Monitor Relationship Specialty Start Date End Date Miguel Lala MD [address] [place] [address] PCP - General Internal Medicine 06/04/23 Fatemeh Ramírez DO [address] [place] [address] Referring Physician Neurology 07/09/23 Savi Hamilton CCC-A [address] [place] [address] Audiology 08/31/23 Conveyor Monitor Relationship Specialty Start Date End Date Miguel Lala MD [address] [place] [address] PCP - General Internal Medicine 06/04/23 Fatemeh Ramírez DO [address] [place] [address] Referring Physician Neurology 07/09/23 Savi Hamilton [facility] [address] [place] [address] Audiology 08/31/23 Conveyor Monitor Relationship Specialty Start Date End Date Miguel Lala MD [address] [place] [phone] PCP - General Internal Medicine 06/04/23 Fatemeh Ramírez DO [address] [place] [address] Referring Physician Neurology 07/09/23 Savi Hamilton [facility] [address] [place] [address] Audiology 08/31/23 Team Status: Active Member Role Status Dates Miguel Lala DO Primary Care Provide r, Attending Provider Active Start: April 12, 2024 Team Status: Inactive Member Role Status Dates Miguel Lala DO Primary Care Provide r, Attending Provider Active Start: June 18, 2024 End: June 18, 2024 Conveyor Monitor Relationship Specialty Start Date End Date Miguel Lala DO [address] [place] [address] Internal Medicine 06/10/24 Conveyor Monitor Relationship Specialty Start Date End Date Miguel Lala DO [address] [place] [address] Internal Medicine 06/10/24 Conveyor Monitor Relationship Specialty Start Date End Date Miguel Lala MD [address] [place] [phone] PCP - General Internal Medicine 06/04/23 Fatemeh Ramírez DO [address] [place] [address] Referring Physician Neurology 07/09/23 Savi Hamilton CCC-A [address] [place] [address] Audiology 08/31/23 Conveyor Monitor Relationship Specialty Start Date End Date Miguel Lala MD [address] [place] [phone] PCP - General Internal Medicine 06/04/23 Fatemeh Ramírez DO [address] [place] [address] Referring Physician Neurology 07/09/23 Savi Hamilton CCC-A [address] [place] [address] Audiology 08/31/23 REASON FOR VISIT (unrecogniz ed [...] or prosecute any alcohol or drug abuse patient.[facility] the event this information is protected by the Federal Confidentiality of Alcohol and Drug Abuse Patient Records regulations: The Federal rules restrict any use of the information to criminally investigate or prosecute any alcohol or drug abuse patient.[facility] FOR RECORDS PERTAINING TO PATIENTS WHO ARE [...] BE BASED ON THE PRIMARY CLINICAL RECORDS. [facility]. provides no warranty or guarantee of the accuracy or completeness of information in this document.
[2024-07-27 12:14] LABS: Thyroid Stimulating Hormone 3.878 uIU/mL (0.358-3.740)
== END 2024-07-27 11:16 | disposition home or self-care (01) ==
LOC: LAB 11:16
PROVIDERS: PCP Internal Medicine
DX: F03.A0 Unspecified dementia, mild, without behavioral disturbance, psychotic disturbance, mood disturbance, and anxiety (principal)
CPT/HCPCS: 36415; 83921; 84443

== ENCOUNTER 2024-08-20 10:00 | Outpatient (RCR) | payer MEDICARE, SELFPAY ==
--- NOTE | 2024-05-14 14:48 | CR1_ITS ---
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
--- NOTE | 2024-05-15 10:19 | CR1_ITS ---
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
--- NOTE | 2024-06-11 08:00 | CR1_ITS ---
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
--- NOTE | 2024-07-09 08:14 | CR1_ITS ---
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
--- NOTE | 2024-08-10 09:49 | CR1_ITS ---
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
== END 2024-08-20 10:54 | disposition home or self-care (01) ==
LOC: CR 10:00
PROVIDERS: PCP Internal Medicine
DX: I21.4 Non-ST elevation (NSTEMI) myocardial infarction (principal); I48.0 Paroxysmal atrial fibrillation; I48.3 Typical atrial flutter
CPT/HCPCS: 93798

== ENCOUNTER 2025-04-21 10:15 | Outpatient (OUT) | payer MEDICARE, SELFPAY ==
[2025-04-21 10:55] LABS: Hematocrit 43.0 % (42.0-54.0); Hemoglobin 14.6 g/dL (14.0-18.0); Immature Granulocytes Abs Auto 0.02 10^3/uL (0.00-0.03); Immature Granulocytes Pct Auto 0.3 % (0.0-0.5); Lymphocytes Absolute Auto 1.2 10^3/uL (1.2-3.8); Mean Corpuscular HGB Conc 34.0 g/dL (29.9-35.2); Mean Corpuscular Hemoglobin 35.2 pg (25.9-34.0); Mean Corpuscular Volume 103.6 fL (80.0-94.0); Platelet Count 160 10^3/uL (150-450); Red Blood Count 4.15 10^6/uL (4.70-6.10); White Blood Count 6.1 10^3/uL (4.0-11.0)
[2025-04-21 11:54] LABS: Alanine Aminotransferase 22 U/L (16-63); Albumin Globulin Ratio 1.0; Albumin Level 3.5 g/dL (3.4-5.0); Alkaline Phosphatase 79 U/L (46-116); Anion Gap 9.5; Aspartate Amino Transferase 25 U/L (15-37); Blood Urea Nitrogen 17.0 mg/dL (7.0-18.0); Calcium 9.3 mg/dL (8.5-10.1); Carbon Dioxide 28.1 mmol/L (21.0-32.0); Chloride 106 mmol/L (98-107); Cholesterol 156 mg/dL (<=200); Estimated GFR (African America >60 (>=60 mL/min/1.73m^2); Estimated GFR (Non-African Ame 58 (>=60 mL/min/1.73m^2); Globulin 3.4 g/dL; Glucose 104 mg/dL (74-106); HDL Cholesterol 58 mg/dL (40-60); Potassium 4.6 mmol/L (3.5-5.1); Sodium 139 mmol/L (136-145); TSH W/ REFLEX FT4 4.201 uIU/mL (0.358-3.740); Total Protein 6.9 g/dL (6.4-8.2); Triglycerides 60 mg/dL (<=150); VLDL CHOLESTEROL 12.0 mg/dL
== END 2025-04-21 10:16 | disposition home or self-care (01) ==
LOC: LAB 10:19
PROVIDERS: PCP Internal Medicine; Visit Provider Internal Medicine
DX: N18.31 Chronic kidney disease, stage 3a (principal); E03.8 Other specified hypothyroidism; E78.00 Pure hypercholesterolemia, unspecified; I10 Essential (primary) hypertension
CPT/HCPCS: 36415; 80053; 80061; 84439; 84443; 85025